=== PATIENT | female | born 1950 | race African-American/Black ===

== ENCOUNTER 2018-12-13 20:27 | Emergency (ER) | payer OTHER ==
--- OUTSIDE RECORDS SUMMARY | 2018-12-13 20:29 | XMS REPORT | Clinical Summary ---
:1950 Author Organization [facility] Address [address] [place] [address] Care Team Providers Name Role Phone Reid [...] Lu Transplant Self 1950 [phone] [address] (Home) [address] [place] [address] Advance Directives Patient has advance care planning documents on file. For more information, please contact:Justice Almendarez[address] [place] [address]
[2018-12-13] MEDS ORDERED: TETRACAINE HCL 0.5% 2ML OPTH ONE (20:45)
--- NOTE | 2018-12-13 20:46 | RAD REPORT ---
EXAM DESCRIPTION: CT - Ct Stroke Brain Wo Cont - 12/13/2018 8:38 pm CLINICAL HISTORY: Right eye pain, visual disturbance, stroke protocol CLINICAL HISTORY: CT September 2015 TECHNIQUE: Axial 5 millimeter thick images of the head were obtained without IV contrast. All CT scans are performed using dose optimization technique as appropriate and may include automated exposure control or mA/KV adjustment according to patient size. FINDINGS: No intracranial hemorrhage, mass, or cerebral edema. No cortical edema or sulcal effacemen t. Patient has underlying mild to moderate atrophy and chronic ischemic change not substantially diff erent from comparison. No extra-axial fluid collections. Craft matter-white matter differentiation is preserved. No globe or orbital content abnormality identifiable. Visualized portions of the mastoid air cells, paranasal sinuses, and orbits are unremarkable. Findings telephoned to the referring clinician 8:42 p.m. IMPRESSION: No CT evidence of acute intracranial process. Atrophy and chronic ischemic changes match prior imaging.
[2018-12-13 21:03] LABS: Absolute Lymphocytes (CBC) 0.8 K/uL (0.7-4.9); Absolute Monocytes 0.7 K/uL (0.1-1.3); Absolute Neutrophil 7.7 K/uL (1.8-8.0); Basophils % 0.5 % (0-1.3); Eosinophils % 2.5 % (0-4.4); Hematocrit 22.7 % (36.0-45.0); Lymphocytes % 8.5 % (15.3-44.8); MPV 8.8 fL (7.6-11.3); Monocytes % 7.5 % (3.3-12.3); RBC Red Blood Cell Count 2.43 M/uL (3.86-4.86)
--- NOTE | 2018-12-13 21:08 | RAD REPORT ---
EXAM DESCRIPTION: RAD - Chest Single View - 12/13/2018 8:45 pm CLINICAL HISTORY: Anemia, shortness of breath COMPARISON: November 2016 TECHNIQUE: AP portable chest image was obtained 2041 hour . FINDINGS: Lung volumes are low. No vascular engorgement. Heart size is normal range. Lung markings a re increased in each base not substantially different from the comparison study. Trachea is midline. No measurable pleural effusion and no pneumothorax. No acute bony abnormality seen. No acute aortic f indings suspected. IMPRESSION: Shallow inspiration film suspicious for mild failure or volume overload.
[2018-12-13 21:13] LABS: Protime INR 0.95
[2018-12-13] MEDS ORDERED: FLUORESCEIN SODIUM 1 MG/WRAP ONE (22:10)
[2018-12-13] MEDS ORDERED: FUROSEMIDE 20 MG/ 2ML VIAL ONE (23:04)
[2018-12-13] MEDS ORDERED: ACETAMINOPHEN 500 MG TAB ONE (23:05)
[2018-12-13] MEDS ORDERED: TETANUS & DIPHTHERIA TOX,ADULT 0.5 ML VIAL ONE (23:05)
[2018-12-13] MEDS ORDERED: DIPHENHYDRAMINE 25 MG TAB/CAP ONE (23:05)
[2018-12-13] MEDS ORDERED: LABETALOL 20 MG/4ML SYRINGE IV ONE (23:05)
[2018-12-13] MEDS ORDERED: NA CHLORIDE 0.9% 500 ML ONE (23:06)
[2018-12-13 23:32] LABS: Urine Blood NEGATIVE (NEG); Urine Glucose 1+ (NEG); Urine Protein 3+ (NEG); Urine Specific Gravity 1.025 (1.005-1.030); Urine pH 6.5 (5.0-7.0)
[2018-12-13] MEDS ORDERED: GENTAMICIN 0.3% OPTH DROP 5ML ONE (23:43)
--- NOTE | 2018-12-14 01:51 | ER ---
Nurse's Notes [facility] Name: Rhoda Lu Age: 68 yrs Sex: Female : 1950 Arrival Date: 12/13/2018 Time: 18:11 Bed 20 Private MD: Nick Magana Diagnosis: Anemia in chronic kidney disease;Injury of conjunctiva and corneal abrasion without foreign body, right eye;Hypertension secondary to other renal disorders Presentation: 12/13 18:35 Presenting complaint: Patient states: Dr. Magana sent me over for blood transfusion tw2 today, i brought the orders. Transition of care: patient was not received from another setting of care. Onset of symptoms was December 13, 2018. Risk Assessment: Do you want to hurt yourself or someone else? Patient reports no desire to harm self or others. Initial Sepsis Screen: Does the patient meet any 2 criteria? No. Patient's initial sepsis screen is negative. Does the patient have a suspected source of infection? No. Patient's initial sepsis screen is negative. Care prior to arrival: None. 18:35 Method Of Arrival: Wheelchair tw2 18:38 Acuity: JANAE 2 tw2 Triage Assessment: 18:38 General: Appears in no apparent distress. slender, Behavior is calm, cooperative, tw2 appropriate for age. Pain: Complains of pain in right eye. Historical: - Allergies: 18:39 TETRACYCLINES; tw2 18:39 Morphine; tw2 18:39 Codeine; tw2 - Home Meds: 18:39 amlodipine 10 mg tab 1 tab once daily [Active]; carvedilol 25 mg Oral tab 1 tab 2 times tw2 per day [Active]; furosemide 20 mg Oral tab 1 tab once daily [Active]; Humulin 70/30 Sub-Q twice a day [Active]; hydralazine 50 mg Oral tab 1 tab 2 times per day [Active]; - PMHx: 18:39 Diabetes - IDDM; Hypertension; tw2 - PSHx: 18:39 Appendectomy; tw2 - Immunization history:: Adult Immunizations. - Social history:: Smoking status: . - Ebola Screening: : Patient denies travel to an Ebola-affected area in the 21 days before illness onset. Screenin:15 Abuse screen: Denies threats or abuse. Denies injuries from another. Nutritional cc3 screening: No deficits noted. Tuberculosis screening: No symptoms or risk factors identified. Fall Risk Ambulatory Aid- None/Bed Rest/Nurse Assist (0 pts). Gait- Normal/Bed Rest/Wheelchair (0 pts) Mental Status- Oriented to own ability (0 pts). 21:00 Patient has been NPO before screening. The patient is alert, able to follow commands. cc3 The patient does not exhibit slurred or garbled speech The patient is not exhibiting difficulty speaking. The patient does not exhibit difficulty understanding words. The patient is able to swallow own secretions with no drooling or need for suction. Patient tolerated one teaspoon of water. No drooling, immediate coughing, gurgling, or clearing of the throat was noted. The patient tolerated 90mL of water. No drooling, immediate coughing, gurgling, or clearing of the throat was noted. The patient passed the bedside swallow screening. Oral medications may be given as ordered. Contact Physician for further diet orders. Provider notified of bedside swallow screening results: Richard Mathew NP. Assessment: 19:15 General: Appears in no apparent distress. comfortable, Behavior is calm, cooperative, cc3 appropriate for age. Pain: Denies pain. Neuro: Level of Consciousness is awake, alert, obeys commands, Oriented to person, place, time, situation, Appropriate for age. Cardiovascular: Patient's skin is warm and dry. Respiratory: Airway is patent Respiratory effort is even, unlabored, Respiratory pattern is regular, symmetrical. GI: Abdomen is round non-distended. : No signs and/or symptoms were reported regarding the genitourinary system. EENT: Reports blurred vision in right eye. Derm: No signs and/or symptoms reported regarding the dermatologic system. Musculoskeletal: Circulation, motion, and sensation intact. Range of motion: intact in all extremities. 19:35 Reassessment: pt states she wants her right eye checked for vision loss she woke up bb this morning at approx 0900 and noticed her vision had changed and she could not see as well. Richard Mathew NP notified new orders received. 20:18 Reassessment: Patient appears in no apparent distress at this time. Patient and/or cc3 family updated on plan of care and expected duration. Pain level reassessed. Patient is alert, oriented x 3, equal unlabored respirations, skin warm/dry/pink. 21:20 Reassessment: Patient appears in no apparent distress at this time. Patient and/or cc3 family updated on plan of care and expected duration. Pain level reassessed. Patient is alert, oriented x 3, equal unlabored respirations, skin warm/dry/pink. 22:15 Reassessment: Patient appears in no apparent distress at this time. Patient and/or cc3 family updated on plan of care and expected duration. Pain level reassessed. Patient is alert, oriented x 3, equal unlabored respirations, skin warm/dry/pink. DANIELLE Ramos consented the patient for 1 unit PRBC transfusion signed by the patient herself. 22:25 Reassessment: Patient appears in no apparent distress at this time. Patient and/or cc3 family updated on plan of care and expected duration. Pain level reassessed. Patient is alert, oriented x 3, equal unlabored respirations, skin warm/dry/pink. 22:45 Reassessment: Patient appears in no apparent distress at this time. Patient and/or cc3 family updated on plan of care and expected duration. Pain level reassessed. Patient is alert, oriented x 3, equal unlabored respirations, skin warm/dry/pink. Blood pressure of 199/71 mmHg, DANIELLE Ramos ordered to start the blood transfusion once blood pressure is lowered and stabilized. 23:20 Reassessment: Patient appears in no apparent distress at this time. Patient and/or cc3 family updated on plan of care and expected duration. Pain level reassessed. Patient is alert, oriented x 3, equal unlabored respirations, skin warm/dry/pink. Baseline vital signs of 168/69 mmHg, 98.3 degrees fahrenheit orally, heart rate of 70 bpm, respiratory rate of 16 and room air saturation of 99%, referred to DANIELLE Mathew and he ordered that blood transfusion can be started now. 1 unit of PRBC counterchecked and countersigned with JONI Rubio and started the blood transfusion as ordered. Monitored the patient closely for any adverse reaction at bedside. Patient denies pain at this time. 23:45 Reassessment: DANIELLE Mathew said the patient will not be for admission, after 1 unit of cc3 PRBC transfusion, to repeat CBC after 2 hours, patient and relatives informed. 12/14 00:20 Reassessment: Patient appears in no apparent distress at this time. Patient and/or cc3 family updated on plan of care and expected duration. Pain level reassessed. Patient is alert, oriented x 3, equal unlabored respirations, skin warm/dry/pink. continuously monitored the patient for any blood transfusion reactions. 01:20 Reassessment: Patient appears in no apparent distress at this time. Patient and/or cc3 family updated on plan of care and expected duration. Pain level reassessed. Patient is alert, oriented x 3, equal unlabored respirations, skin warm/dry/pink. continuously monitored the patient. Patient denies pain at this time. 01:50 Reassessment: Patient appears in no apparent distress at this time. Patient and/or cc3 family updated on plan of care and expected duration. Pain level reassessed. Patient is alert, oriented x 3, equal unlabored respirations, skin warm/dry/pink. 1 unit of packed RBC transfusion completed, patient tolerated. DANIELLE Ibarra informed and she ordered to repeat CBC after an hour before discharging the patient home. Patient denies pain at this time. 02:50 Reassessment: Patient appears in no apparent distress at this time. Patient and/or cc3 family updated on plan of care and expected duration. Pain level reassessed. Patient is alert, oriented x 3, equal unlabored respirations, skin warm/dry/pink. Repeat CBC taken and sent to lab as ordered, awaiting result. Patient denies pain at this time. Patient states feeling better. Patient states symptoms have improved. 03:16 Reassessment: Patient appears in no apparent distress at this time. Patient and/or cc3 family updated on plan of care and expected duration. Pain level reassessed. Patient is alert, oriented x 3, equal unlabored respirations, skin warm/dry/pink. 04:00 Reassessment: Patient appears in no apparent distress at this time. Patient and/or cc3 family updated on plan of care and expected duration. Pain level reassessed. Patient is alert, oriented x 3, equal unlabored respirations, skin warm/dry/pink. DANIELLE Ibarra discharged the patient home with prescription given. IV cannula removed and patient left ER vitally stable by wheelchair escorted by me and the patient's family. Patient denies pain at this time. Patient states feeling better. Patient states symptoms have improved. Vital Signs: 04/10 18:36 BP 210 / 103; Pulse 89; Resp 17; Temp 97.5(TE); Pulse Ox 97% on R/A; Weight 52.62 kg tw2 (R); Pain 8/10; 19:15 BP 195 / 87; Pulse 87; Resp 20 S; Temp 97.7(O); Pulse Ox 97% on R/A; cc3 20:00 BP 187 / 94; Pulse 94; Resp 17 S; Pulse Ox 98% on R/A; cc3 20:15 BP 178 / 75; Pulse 92; Resp 18 S; Pulse Ox 96% on R/A; cc3 21:49 BP 205 / 86; Pulse 93; Resp 16 S; Pulse Ox 96% on R/A; cc3 22:45 BP 199 / 71; Pulse 84; Resp 17 S; Pulse Ox 95% on R/A; cc3 23:10 BP 200 / 91; Pulse 93; Resp 17 S; Pulse Ox 96% on R/A; cc3 23:15 BP 210 / 71; Pulse 94; Resp 15 S; Pulse Ox 100% on R/A; cc3 23:20 BP 168 / 69; Pulse 70; Resp 16 S; Temp 98.3(O); Pulse Ox 99% on R/A; cc3 23:25 BP 169 / 57; Pulse 70; Resp 13 S; Temp 97.6(O); Pulse Ox 99% on R/A; cc3 23:30 BP 170 / 74; Pulse 70; Resp 16 S; Temp 97.6(O); Pulse Ox 100% on R/A; cc3 23:35 BP 163 / 67; Pulse 70; Resp 14 S; Temp 98(O); Pulse Ox 98% on R/A; cc3 23:50 BP 170 / 73; Pulse 69; Resp 15 S; Temp 97.9(O); Pulse Ox 97% on R/A; cc3 12/14 00:20 BP 165 / 69; Pulse 66; Resp 15 S; Temp 98(O); Pulse Ox 96% on R/A; cc3 00:50 BP 169 / 75; Pulse 67; Resp 14 S; Temp 98(O); Pulse Ox 95% on R/A; cc3 01:20 BP 167 / 75; Pulse 75; Resp 19 S; Temp 98(O); Pulse Ox 97% on R/A; cc3 01:50 BP 184 / 84; Pulse 71; Resp 14 S; Temp 97.9(O); Pulse Ox 95% on R/A; cc3 02:00 BP 187 / 88; Pulse 72; Resp 17 S; Pulse Ox 96% on R/A; cc3 02:30 BP 159 / 76; Pulse 81; Resp 18 S; Pulse Ox 100% on R/A; cc3 03:00 BP 164 / 72; Pulse 73; Resp 18 S; Pulse Ox 96% on R/A; cc3 03:45 BP 161 / 87; Pulse 76; Resp 17 S; Pulse Ox 98% on R/A; cc3 12/13 18:36 Right eye pain tw2 ED Course: 18:11 Patient arrived in ED. as 18:12 Nick Magana DO is Private Physician. as 18:36 Triage completed. tw2 18:39 Arm band placed on. tw2 19:02 Richard Mathew NP is PHCP. pm1 19:02 Marek Reagan MD is Attending Physician. pm1 19:12 Kim Kennedy is Primary Nurse. cc3 19:15 Patient has correct armband on for positive identification. Placed in gown. Bed in low cc3 position. Call light in reach. Side rails up X2. cashier and waiter/waitress on. Pulse ox on. NIBP on. 20:15 Inserted saline lock: 20 gauge in right antecubital area, using aseptic technique. cc3 Blood collected. 20:38 CT Stroke Brain w/o Contrast In Process Unspecified. EDMS 20:42 X-ray completed. Patient tolerated procedure well. Patient moved back from radiology. ls3 20:43 Stroke CXR 1 View In Process Unspecified. EDMS 21:35 Notified Nurse Practitioner and/or Physician Senior [employer] Developer of a critical lab result(s), jb4 Creatinine 6.75 Notified primary nurse of Critical lab value. 12/14 01:50 Nick Magana DO is Referral Physician. snw 01:50 Amor Holliday MD is Referral Physician. snw 04:00 No provider procedures requiring assistance completed. IV discontinued, intact, cc3 bleeding controlled, No redness/swelling at site. Pressure dressing applied. Administered Medications: 12/13 21:05 Drug: Tetracaine Drops 0.5 % 1 drops {Note: admisnistered by DANIELLE Mathew.} Route: cc3 Ophthalmic; Site: right eye; 21:30 Follow up: Response: No adverse reaction cc3 21:50 Drug: Fluorescein Strip 1 strip {Note: administered by DANIELLE Mathew.} Route: Ophthalmic; cc3 Site: right eye; 22:05 Follow up: Response: No adverse reaction cc3 23:00 Drug: Lasix 20 mg Route: IVP; Site: right antecubital; cc3 23:15 Follow up: Response: No adverse reaction cc3 23:05 Drug: Tylenol 500 mg Route: PO; cc3 23:20 Follow up: Response: No adverse reaction cc3 23:05 Drug: Benadryl 25 mg Route: PO; cc3 23:20 Follow up: Response: No adverse reaction cc3 23:10 Drug: Tetanus-Diphtheria Toxoid Adult 0.5 ml {Manager Solar: [employer]. Exp: cc3 09/23/2020. Lot #: [id number]. } Route: IM; Site: right deltoid; 23:30 Follow up: Response: No adverse reaction cc3 23:15 Drug: Labetalol 20 mg Route: IVP; Infused Over: 2 mins; Site: right antecubital; cc3 23:20 Follow up: Response: No adverse reaction; Blood pressure is lowered cc3 23:30 Drug: Gentamicin Drops 0.3 % 2 drops Route: Ophthalmic; Site: right eye; cc3 23:40 Follow up: Response: No adverse reaction cc3 23:32 Not Given (Other Intervention Used): TobraDEX Drops (0.3 %-0.1 %) 2 drops Ophthalmic rr5 once Point of Care Testing: Blood Glucose: 20:19 Blood Glucose: 131 mg/dL; cc3 Ranges: Outcome: 12/14 01:50 Discharge ordered by . monster 04:00 Discharged to home via wheelchair, with family. cc3 04:00 Condition: stable 04:00 Discharge instructions given to patient, family, Instructed on discharge instructions, follow up and referral plans. medication usage, Demonstrated understanding of instructions, follow-up care, medications, Prescriptions given X 1. 04:02 Patient left the ED. cc3 Signatures: Dispatcher [employer] EDMS Stacey May FNP-C MEDICAL SCREENER-[employer] Naomie Acosta as Rhoda Dong, RN RN bb Richard Mathew NP SATELLITE INSTALLATION TECHNICIAN pm1 Barbara Nieto RN RN tw2 Hany Montelongo RN RN jb4 Kim Kennedy cc3 Marcus Nixon 3 Ramiro Welsh RN rr5 Corrections: (The following items were deleted from the chart) 12/13 18:38 18:35 Acuity: JANAE 3 tw2 tw2 21:18 20:00 BP 178 / 75; Pulse 92bpm; Resp 18bpm; Spontaneous; Pulse Ox 96% RA; cc3 cc3 12/14 00:07 12/13 22:15 Reassessment: Patient appears in no apparent distress at this time. Patient cc3 and/or family updated on plan of care and expected duration. Pain level reassessed. Patient is alert, oriented x 3, equal unlabored respirations, skin warm/dry/pink. Patient consented for blood transfusion signed by the patient herself. 3 12/14 01:42 01:20 Reassessment: Patient appears in no apparent distress at this time. Patient cc3 and/or family updated on plan of care and expected duration. Pain level reassessed. Patient is alert, oriented x 3, equal unlabored respirations, skin warm/dry/pink. continuously monitored the patient. 3 01:43 12/13 23:20 Reassessment: Patient appears in no apparent distress at this time. Patient cc3 and/or family updated on plan of care and expected duration. Pain level reassessed. Patient is alert, oriented x 3, equal unlabored respirations, skin warm/dry/pink. Baseline vital signs of 168/69 mmHg, 98.3 degrees fahrenheit orally, heart rate of 70 bpm, respiratory rate of 16 and room air saturation of 99%, referred to DANIELLE Mathew and he ordered that blood transfusion can be started now. 1 unit of PRBC counterchecked and countersigned with JONI Rubio and started the blood transfusion as ordered. Monitored the patient closely for any adverse reaction at bedside. cc3 12/14 03:15 01:50 Reassessment: Patient appears in no apparent distress at this time. Patient cc3 and/or family updated on plan of care and expected duration. Pain level reassessed. Patient is alert, oriented x 3, equal unlabored respirations, skin warm/dry/pink. 1 unit of packed RBC transfusion completed, patient tolerated. SATELLITE INSTALLATION TECHNICIAN Stacey informed and she ordered to repeat CBC after an hour before discharging the patient home. cc3 03:15 02:50 Reassessment: Patient appears in no apparent distress at this time. Patient cc3 and/or family updated on plan of care and expected duration. Pain level reassessed. Patient is alert, oriented x 3, equal unlabored respirations, skin warm/dry/pink. Repeat CBC taken and sent to lab as ordered, awaiting result. cc3
--- NOTE | 2018-12-14 01:52 | EDPHYS ---
Physician Documentation [facility] Name: Rhoda Lu Age: 68 yrs Sex: Female : 1950 Arrival Date: 12/13/2018 Time: 18:11 Bed 20 Private MD: Nick Magana ED Physician Maerk Reagan HPI: 12/13 19:55 This 68 yrs old Black Female presents to ER via Wheelchair with complaints of Blood pm1 Transfusion. 19:55 Associated signs and symptoms: Pertinent negatives: abdominal pain, chest pain, fever, pm1 headache, shortness of breath. Modifying factors: The patient symptoms are alleviated by nothing, the patient symptoms are aggravated by nothing. The patient has been recently seen by a physician: Dr. Magana. Patient reports that she gets iron injections every Tuesday. Patient is presenting to the ER with orders for a transfusion of 2 units of PRBCs by Dr. Magana. Patient without any shortness of breath, chest pain, or headache. 19:55 Patient reports that her right eye has been blurry since she woke up in the morning. No pm1 loss of vision. Complete right eye visual field is blurry. It feels scratchy like there is something in it. Right eye tearing since this AM. 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 Historical: - Allergies: 18:39 TETRACYCLINES; tw2 18:39 Morphine; tw2 18:39 Codeine; tw2 - Home Meds: 18:39 amlodipine 10 mg tab 1 tab once daily [Active]; carvedilol 25 mg Oral tab 1 tab 2 times tw2 per day [Active]; furosemide 20 mg Oral tab 1 tab once daily [Active]; Humulin 70/30 Sub-Q twice a day [Active]; hydralazine 50 mg Oral tab 1 tab 2 times per day [Active]; - PMHx: 18:39 Diabetes - IDDM; Hypertension; tw2 - PSHx: 18:39 Appendectomy; tw2 - Immunization history:: Adult Immunizations. - Social history:: Smoking status: . - Ebola Screening: : Patient denies travel to an Ebola-affected area in the 21 days before illness onset. ROS: 19:55 Constitutional: Negative for fever, chills, and weight loss. pm1 19:55 ENT: Negative for injury, pain, and discharge, Neck: Negative for injury, pain, and swelling, Cardiovascular: Negative for chest pain, palpitations, and edema, Respiratory: Negative for shortness of breath, cough, wheezing, and pleuritic chest pain, Abdomen/GI: Negative for abdominal pain, nausea, vomiting, diarrhea, and constipation, Back: Negative for injury and pain, : Negative for injury, bleeding, discharge, and swelling, MS/Extremity: Negative for injury and deformity, Skin: Negative for injury, rash, and discoloration, Neuro: Negative for headache, weakness, numbness, tingling, and seizure. 19:55 Eyes: Positive for blurry vision, itching, tearing, of the right eye, Negative for discharge. Exam: 19:55 Constitutional: This is a well developed, well nourished patient who is awake, alert, pm1 and in no acute distress. Head/Face: Normocephalic, atraumatic. ENT: Nares patent. No nasal discharge, no septal abnormalities noted. Tympanic membranes are normal and external auditory canals are clear. Oropharynx with no redness, swelling, or masses, exudates, or evidence of obstruction, uvula midline. Mucous membranes moist. 19:55 Neck: Trachea midline, no thyromegaly or masses palpated, and no cervical lymphadenopathy. Supple, full range of motion without nuchal rigidity, or vertebral point tenderness. No Meningismus. Chest/axilla: Normal chest wall appearance and motion. Nontender with no deformity. No lesions are appreciated. Cardiovascular: Regular rate and rhythm with a normal S1 and S2. No gallops, murmurs, or rubs. Normal PMI, no JVD. No pulse deficits. Respiratory: Lungs have equal breath sounds bilaterally, clear to auscultation and percussion. No rales, rhonchi or wheezes noted. No increased work of breathing, no retractions or nasal flaring. Abdomen/GI: Soft, non-tender, with normal bowel sounds. No distension or tympany. No guarding or rebound. No evidence of tenderness throughout. Back: No spinal tenderness. No costovertebral tenderness. Full range of motion. Skin: Warm, dry with normal turgor. Normal color with no rashes, no lesions, and no evidence of cellulitis. MS/ Extremity: Pulses equal, no cyanosis. Neurovascular intact. Full, normal range of motion. 19:55 Eyes: Periorbital structures: appear normal, Pupils: irregularly shaped, bilaterally, left eye fixed and dilated, Extraocular movements: intact throughout, Conjunctiva: injected, in the right eye, tearing noted, in right eye. 19:55 Neuro: Orientation: is normal, Mentation: is normal, Memory: is normal, Motor: is normal, moves all fours, Sensation: is normal, no obvious gross deficits. 21:10 Eyes: Intraocular pressure: is normal, right eye = 21mmHg. pm1 22:00 Eyes: Corneas: abrasion, approximately 1 mm(s), center of cornea of right eye, foreign pm1 body, is not appreciated, a fluorescein strip employed to appreciate the findings. Vital Signs: 18:36 BP 210 / 103; Pulse 89; Resp 17; Temp 97.5(TE); Pulse Ox 97% on R/A; Weight 52.62 kg tw2 (R); Pain 8/10; 19:15 BP 195 / 87; Pulse 87; Resp 20 S; Temp 97.7(O); Pulse Ox 97% on R/A; cc3 20:00 BP 187 / 94; Pulse 94; Resp 17 S; Pulse Ox 98% on R/A; cc3 20:15 BP 178 / 75; Pulse 92; Resp 18 S; Pulse Ox 96% on R/A; cc3 21:49 BP 205 / 86; Pulse 93; Resp 16 S; Pulse Ox 96% on R/A; cc3 22:45 BP 199 / 71; Pulse 84; Resp 17 S; Pulse Ox 95% on R/A; cc3 23:10 BP 200 / 91; Pulse 93; Resp 17 S; Pulse Ox 96% on R/A; cc3 23:15 BP 210 / 71; Pulse 94; Resp 15 S; Pulse Ox 100% on R/A; cc3 23:20 BP 168 / 69; Pulse 70; Resp 16 S; Temp 98.3(O); Pulse Ox 99% on R/A; cc3 23:25 BP 169 / 57; Pulse 70; Resp 13 S; Temp 97.6(O); Pulse Ox 99% on R/A; cc3 23:30 BP 170 / 74; Pulse 70; Resp 16 S; Temp 97.6(O); Pulse Ox 100% on R/A; cc3 23:35 BP 163 / 67; Pulse 70; Resp 14 S; Temp 98(O); Pulse Ox 98% on R/A; cc3 23:50 BP 170 / 73; Pulse 69; Resp 15 S; Temp 97.9(O); Pulse Ox 97% on R/A; cc3 12/14 00:20 BP 165 / 69; Pulse 66; Resp 15 S; Temp 98(O); Pulse Ox 96% on R/A; cc3 00:50 BP 169 / 75; Pulse 67; Resp 14 S; Temp 98(O); Pulse Ox 95% on R/A; cc3 01:20 BP 167 / 75; Pulse 75; Resp 19 S; Temp 98(O); Pulse Ox 97% on R/A; cc3 01:50 BP 184 / 84; Pulse 71; Resp 14 S; Temp 97.9(O); Pulse Ox 95% on R/A; cc3 02:00 BP 187 / 88; Pulse 72; Resp 17 S; Pulse Ox 96% on R/A; cc3 02:30 BP 159 / 76; Pulse 81; Resp 18 S; Pulse Ox 100% on R/A; cc3 03:00 BP 164 / 72; Pulse 73; Resp 18 S; Pulse Ox 96% on R/A; cc3 03:45 BP 161 / 87; Pulse 76; Resp 17 S; Pulse Ox 98% on R/A; cc3 12/13 18:36 Right eye pain tw2 MDM: 19:03 Patient medically screened. pm1 22:04 Data reviewed: vital signs. Data interpreted: Pulse oximetry: on room air is 96 %. pm1 Interpretation: normal. 22:32 Physician consultation: Rodney Agosto MD was called at 22:33, was contacted at pm1 22:33, regarding consult, patient's condition, 1 unit PRBC with Lasix 20 mg IV and discharge the patient home after the transfusion of blood.. 22:44 Counseling: I had a detailed discussion with the patient and/or guardian regarding: the pm1 historical points, exam findings, and any diagnostic results supporting the discharge/admit diagnosis, lab results, radiology results. 12/13 19:07 Order name: CBC with Diff; Complete Time: 21:11 pm1 12/13 19:07 Order name: Type And Screen pm1 12/13 19:55 Order name: Basic Metabolic Panel; Complete Time: 21:48 pm12/13 19:55 Order name: Protime (+inr); Complete Time: 21:29 pm12/13 19:55 Order name: Ptt, Activated; Complete Time: 21:29 pm1 12/13 19:55 Order name: CT Stroke Brain w/o Contrast; Complete Time: 21:01 pm12/13 21:47 Order name: Packed RBC Leukored -1 EDMS 12/13 23:26 Order name: Urine Dipstick--Ancillary (enter results); Complete Time: 23:41 mw2 12/14 02:45 Order name: CBC with Diff: post PRBC transfusion cc3 12/13 19:55 Order name: Stroke CXR 1 View; Complete Time: 21:11 pm1 12/13 19:55 Order name: EKG; Complete Time: 20:29 pm12/13 19:55 Order name: Accucheck; Complete Time: 20:27 pm12/13 19:55 Order name: Cardiac monitoring; Complete Time: 19:58 pm12/13 19:55 Order name: EKG - Nurse/Tech; Complete Time: 20:27 pm12/13 19:55 Order name: IV Saline Lock; Complete Time: 19:58 pm12/13 19:55 Order name: Labs collected and sent; Complete Time: 20:43 pm12/13 19:55 Order name: NPO; Complete Time: 19:59 pm12/13 19:55 Order name: O2 Per Protocol; Complete Time: 20:43 pm12/13 19:55 Order name: O2 Sat Monitoring; Complete Time: 20:27 pm12/13 19:55 Order name: Stroke Swallow Screen; Complete Time: 21:16 pm12/14 00:13 Order name: Transfuse; Complete Time: 00:14 cc3 Administered Medications: 21:05 Drug: Tetracaine Drops 0.5 % 1 drops {Note: admisnistered by DANIELLE Mathew.} Route: cc3 Ophthalmic; Site: right eye; 21:30 Follow up: Response: No adverse reaction cc3 21:50 Drug: Fluorescein Strip 1 strip {Note: administered by MATTRESS WEAVER Priyanka.} Route: Ophthalmic; cc3 Site: right eye; 22:05 Follow up: Response: No adverse reaction cc3 23:00 Drug: Lasix 20 mg Route: IVP; Site: right antecubital; cc3 23:15 Follow up: Response: No adverse reaction cc3 23:05 Drug: Tylenol 500 mg Route: PO; cc3 23:20 Follow up: Response: No adverse reaction cc3 23:05 Drug: Benadryl 25 mg Route: PO; cc3 23:20 Follow up: Response: No adverse reaction cc3 23:10 Drug: Tetanus-Diphtheria Toxoid Adult 0.5 ml {Vinyl Installer: [employer]. Exp: cc3 09/23/2020. Lot #: [id number]. } Route: IM; Site: right deltoid; 23:30 Follow up: Response: No adverse reaction cc3 23:15 Drug: Labetalol 20 mg Route: IVP; Infused Over: 2 mins; Site: right antecubital; cc3 23:20 Follow up: Response: No adverse reaction; Blood pressure is lowered cc3 23:30 Drug: Gentamicin Drops 0.3 % 2 drops Route: Ophthalmic; Site: right eye; cc3 23:40 Follow up: Response: No adverse reaction cc3 23:32 Not Given (Other Intervention Used): TobraDEX Drops (0.3 %-0.1 %) 2 drops Ophthalmic rr5 once Point of Care Testing: Blood Glucose: 20:19 Blood Glucose: 131 mg/dL; cc3 Ranges: Critical Glucose Levels:Adult <50 mg/dl or >400 mg/dl <40 mg/dl or >180 mg/dl Disposition: 12/14 06:40 Co-signature as Attending Physician, Marek Reagan MD I agree with the assessment and kdr plan of care. Disposition: 12/14/18 01:50 Discharged to Home. Impression: Anemia in chronic kidney disease, Injury of conjunctiva and corneal abrasion without foreign body, right eye, Hypertension secondary to other renal disorders. - Condition is Stable. - Discharge Instructions: Anemia, Nonspecific, Blood Transfusion, Adult, Corneal Abrasion, Hypertension, Eclc-xl-[id number], How to Take Your Blood Pressure, Rhca-ae-Vdcm. - Prescriptions for Gentamicin 0.3 % Ophthalmic Drops - instill 1 drop by OPHTHALMIC route every 4 hours for 7 days; 1 bottle. - Medication Reconciliation Form, Thank You Letter, Antibiotic Education, Prescription Opioid Use form. - Follow up: Nick Magana; When: 2 - 3 days; Reason: Recheck today's complaints, Continuance of care, Re-evaluation by your physician. Follow up: Amor Schmidty; When: 2 - 3 days; Reason: Recheck today's complaints, Continuance of care, Re-evaluation by your physician. - Problem is new. - Symptoms have improved. Signatures: Dispatcher [employer] EDMS Marek Reagan MD MD [facility] Stacey May, RESTAURANT SERVER-C RESTAURANT SERVER-[employer] Richard Mathew, MATTRESS WEAVER MATTRESS WEAVER pm1 Barbara Nieto RN RN tw2 Kim Kennedy cc3 Ramiro Welsh, RN RN rr5 Corrections: (The following items were deleted from the chart) 12/13 20:32 20:30 Head Brain Wo Cont ordered. EDSC EDSC 21:32 20:30 BASIC METABOLIC PANEL+C.LAB.BRZ ordered. EDSC EDSC 21:47 20:30 TYPE AND SCREEN+BB.LAB.BRZ ordered. EDSC EDSC 23:31 20:30 PROTIME (+INR)+COAG.LAB.BRZ ordered. EDSC EDSC 23:31 20:30 PTT, ACTIVATED+COAG.LAB.BRZ ordered. EDSC EDSC 23:32 20:30 CBC+H.LAB.BRZ ordered. [facility] 12/14 04:02 01:50 12/14/2018 01:50 Discharged to Home. Impression: Anemia in chronic kidney cc3 disease; Injury of conjunctiva and corneal abrasion without foreign body, right eye; Hypertension secondary to other renal disorders. Condition is Stable. Discharge Instructions: Anemia, Nonspecific, Blood Transfusion, Adult, Corneal Abrasion, Hypertension, Rocv-vd-Igub, How to Take Your Blood Pressure, Wrue-lk-Tbrr. Prescriptions for Gentamicin 0.3 % Ophthalmic Drops - instill 1 drop by OPHTHALMIC route every 4 hours for 7 days; 1 bottle. and Forms are Medication Reconciliation Form, Thank You Letter, Antibiotic Education, Prescription Opioid Use. Follow up: Nick Magana; When: 2 - 3 days; Reason: Recheck today's complaints, Continuance of care, Re-evaluation by your physician. Follow up: Amor Holliday; When: 2 - 3 days; Reason: Recheck today's complaints, Continuance of care, Re-evaluation by your physician. Problem is new. Symptoms have improved. snw
[2018-12-14 03:04] LABS: Absolute Lymphocytes (CBC) 0.5 K/uL (0.7-4.9); Absolute Monocytes 0.5 K/uL (0.1-1.3); Absolute Neutrophil 6.8 K/uL (1.8-8.0); Basophils % 0.4 % (0-1.3); Eosinophils % 1.8 % (0-4.4); Hematocrit 25.1 % (36.0-45.0); Lymphocytes % 6.7 % (15.3-44.8); MPV 8.7 fL (7.6-11.3); Monocytes % 6.7 % (3.3-12.3); RBC Red Blood Cell Count 2.77 M/uL (3.86-4.86)
[2018-12-14 04:26] VITALS: TEMP 97.9
[2018-12-14 04:30] VITALS: BP 164/72; O2SAT 96
--- NOTE | 2018-12-14 08:18 | EKG ---
Test Date: 2018-12-13 Test Time: 20:24:07 Calender Wind Up Helper: MATHEW MEASUREMENT RESULTS: Intervals: Rate: 94 WV: 124 QRSD: 78 QT: 376 QTc: 470 [place]: P: 76 WV: 124 QRS: -9 T: 61 INTERPRETIVE STATEMENTS: Normal sinus rhythm Possible Left atrial enlargement Borderline ECG Compared to ECG 11/07/2016 02:41:58 Sinus bradycardia no longer present Electronically Signed On 12-14-18 07:51:15 CDT by Sarkis Crouch
== END 2018-12-14 04:02 | disposition home or self-care (01) ==
LOC: ER 20:27
DX: N18.9 Chronic kidney disease, unspecified (principal); D63.1 Anemia in chronic kidney disease; S05.01XA Injury of conjunctiva and corneal abrasion without foreign body, right eye, initial encounter; E11.22 Type 2 diabetes mellitus with diabetic chronic kidney disease; I12.9 Hypertensive chronic kidney disease with stage 1 through stage 4 chronic kidney disease, or unspecified chronic kidney disease; Z79.4 Long term (current) use of insulin
CPT/HCPCS: 93005; 85025 ×2; 80048; 36415; 86900; 86850; 85610; 86901; 85730; 81003; 70450; 71045; 90714; 96375; 96374; 99285; J1940; P9016

== ENCOUNTER → 2018-12-13 | Day surgery (SDC) | payer OTHER ==
--- OUTSIDE RECORDS SUMMARY | 2018-12-13 18:10 | XMS REPORT | Clinical Summary ---
:1950 Author Organization [facility] Address [address] [place] [address] Care Team Providers Name Role Phone Reid Vera MD Primary Care Provider Allergies Active Allergy Reactions Severity Noted Date Comments Tetracycline Hives, Shortness Of Breath High 08/30/2017 Medications Medication Sig Dispensed Refills Start Date End Date Status furosemide (LASIX) 80 Take 80 mg by 0 Active mg tablet mouth daily. SPIRONOLACTONE ORAL Take 75 mg by 0 Active mouth daily. hydrALAZINE Take 25 mg by 0 Active (APRESOLINE) 25 MG mouth 3 (three) tablet times a day. travoprost Administer 1 drop 0 Active (TRAVATAN-Z) 0.004 % to both eyes nightly. brimonidine-timolol Administer 1 drop 0 Active (COMBIGAN) 0.2-0.5 % to both eyes every ophthalmic solution 12 (twelve) hours. Active Problems Problem Noted Date Anemia 08/30/2017 Social History Tobacco Use Types Packs/Day Years Used Date Former Smoker Cigarettes 0.25 40 Smokeless Tobacco: Never Used Sex Assigned at Date Recorded Not on file Job Start Date Occupation Industry Not on file Not on file Not on file Travel History Travel Start Travel End No recent travel history available. Last Filed Vital Signs Not on file Plan of Treatment Not on file Results Not on fileafter 12/12/2017 Insurance Payer Benefit Plan / Group Subscriber ID Type Phone Address [employer]V xxxxxxxx HMO Rhoda Lu Transplant Self 1950 [phone] (Home) [address] [place] [address] Advance Directives Patient has advance care planning documents on file. For more information, please contact:Justice Almendarez[address] [place] [address]
== END ==
LOC: DS 18:05
PROVIDERS: ATTEND Internal Medicine Nephrology
DX: I13.2 Hypertensive heart and chronic kidney disease with heart failure and with stage 5 chronic kidney disease, or end stage renal disease (principal); E11.22 Type 2 diabetes mellitus with diabetic chronic kidney disease; N18.5 Chronic kidney disease, stage 5; I50.32 Chronic diastolic (congestive) heart failure; D63.1 Anemia in chronic kidney disease; N25.0 Renal osteodystrophy; E21.1 Secondary hyperparathyroidism, not elsewhere classified; E55.9 Vitamin D deficiency, unspecified; E87.8 Other disorders of electrolyte and fluid balance, not elsewhere classified; I77.9 Disorder of arteries and arterioles, unspecified; K59.01 Slow transit constipation; R60.0 Localized edema; R80.8 Other proteinuria
CPT/HCPCS: 82962; 86850; 86900; 86901

== ENCOUNTER 2019-01-03 15:56 | Inpatient (IN) | payer OTHER ==
--- OUTSIDE RECORDS SUMMARY | 2019-01-03 15:58 | XMS REPORT | Clinical Summary ---
:1950 Author Organization [facility] Address [address] [place] [address] Care Team Providers Name Role Phone Reid [...] Not on file Results Not on fileafter 01/02/2018 Insurance Payer Benefit Plan / Group Subscriber ID Type Phone Address [employer] O MCR ADV xxxxxxxx HMO Rhoda Lu Transplant Self 1950 [phone] [address] ([address]) [address] [place] [address] Advance Directives Patient has advance care planning documents on file. For more information, please contact:Justice Almendarez[address] [place] [address]
[2019-01-03] MEDS ORDERED: MORPHINE 4 MG/ML SYR ONE (16:20)
[2019-01-03] MEDS ORDERED: ONDANSETRON 4 MG/2 ML VIAL ONE (16:20)
[2019-01-03 16:21] LABS: Absolute Lymphocytes (CBC) 0.3 K/uL (0.7-4.9); Absolute Monocytes 0.8 K/uL (0.1-1.3); Absolute Neutrophil 11.4 K/uL (1.8-8.0); Basophils % 0.2 % (0-1.3); Eosinophils % 2.5 % (0-4.4); Lymphocytes % 2.7 % (15.3-44.8); MPV 8.7 fL (7.6-11.3); Monocytes % 6.3 % (3.3-12.3); RBC Red Blood Cell Count 2.96 M/uL (3.86-4.86)
[2019-01-03 16:31] LABS: Protime INR 1.02
--- NOTE | 2019-01-03 16:38 | RAD REPORT ---
EXAM DESCRIPTION: [place] Single View01/03/2019 4:27 pm CLINICAL HISTORY: Chest pain COMPARISON: December 13, 2018 FINDINGS: [id number] bilateral pulmonary opacities. The heart is normal size. Small pleural effusions are present IMPRESSION: [id number] bilateral pulmonary opacities probably represent pulmonary edema
[2019-01-03] MEDS ORDERED: NITROGLYCERIN 0.4 MG/TAB SL ONE (17:11)
[2019-01-03 18:05] LABS: Albumin 3.3 g/dL (3.4-5.0); Bilirubin Direct 0.1 mg/dL (0-0.2); Bilirubin Total 0.4 mg/dL (0.2-1.0); Potassium 3.9 mmol/L (3.5-5.1); Protein, Total 7.1 g/dL (6.4-8.2)
[2019-01-03 18:06] LABS: Magnesium 2.7 mg/dL (1.8-2.4); Troponin (Emerg Dept Use Only) 0.07 ng/mL (0.0-0.045)
--- NOTE | 2019-01-03 18:06 | ER ---
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 Reports aj pain radiates to left arm. Transition of care: patient was not received from another setting of care. Onset of symptoms was January 03, 2019. Risk Assessment: Do you want to hurt yourself or someone else? Patient reports no desire to harm self or others. Initial Sepsis Screen: Does the patient meet any 2 criteria? No. Patient's initial sepsis screen is negative. Does the patient have a suspected source of infection? No. Patient's initial sepsis screen is negative. Care prior to arrival: Medication(s) given: ASA, 325 mg, x 1, Nitroglycerin, 0.4 mg SL x 2, IV initiated. 20 GA, in the left antecubital area. 15:57 Method Of Arrival: EMS: [facility] 15:57 Acuity: JANAE 2 aj Triage Assessment: 16:00 General: Appears in no apparent distress. comfortable, Behavior is calm, cooperative, aj appropriate for age. Pain: Complains of pain in mid-sternal area. Neuro: Level of Consciousness is awake, alert, obeys commands, Oriented to person, place, time, situation, Appropriate for age. Cardiovascular: Reports chest pain, Capillary refill < 3 seconds fingers Patient's skin is warm and dry. Edema is 2+ to left foot, left toes, right foot and right toes. Respiratory: Airway is patent Respiratory effort is even, unlabored, Respiratory pattern is regular, symmetrical. Derm: Skin is intact, is healthy with good turgor, Skin is pink, warm \T\ dry. normal. Historical: - Allergies: 16:00 Codeine; aj 16:00 Morphine; aj 16:00 TETRACYCLINES; aj 16:00 Demerol; aj - Home Meds: 16:00 amlodipine 10 mg tab 1 tab once daily [Active]; carvedilol 25 mg Oral tab 1 tab 2 times aj per day [Active]; furosemide 20 mg Oral tab 1 tab once daily [Active]; Humulin 70/30 Sub-Q twice a day [Active]; hydralazine 50 mg Oral tab 1 tab 2 times per day [Active]; - PMHx: 16:00 Diabetes - IDDM; Hypertension; Renal Disease; DVT; aj - PSHx: 16:00 Appendectomy; aj - Immunization history:: Adult Immunizations up to date. - Social history:: Smoking status: Patient/guardian denies using tobacco, Patient/guardian denies using alcohol, street drugs, The patient lives with family. - Ebola Screening: : Patient negative for fever greater than or equal to 101.5 degrees Fahrenheit, and additional compatible Ebola Virus Disease symptoms Patient denies exposure to infectious person Patient denies travel to an Ebola-affected area in the 21 days before illness onset No symptoms or risks identified at this time. - Family history:: not pertinent. Screenin:17 Abuse screen: Denies threats or abuse. Denies injuries from another. Nutritional aj screening: No deficits noted. Tuberculosis screening: No symptoms or risk factors identified. Fall Risk None identified. Assessment: 16:17 Reassessment: No changes from previously documented assessment. aj 18:04 Reassessment: Patient appears in no apparent distress at this time. No changes from aj previously documented assessment. Patient and/or family updated on plan of care and expected duration. Pain level reassessed. Patient is alert, oriented x 3, equal unlabored respirations, skin warm/dry/pink. Patient is resting in bed with eyes closed. Denies pain at this time. 19:45 Reassessment: Patient appears in no apparent distress at this time. No changes from aj previously documented assessment. Patient and/or family updated on plan of care and expected duration. Pain level reassessed. Patient is alert, oriented x 3, equal unlabored respirations, skin warm/dry/pink. Vital Signs: 16:00 BP 160 / 116; Pulse 89; Resp 21; Temp 98.5; Pulse Ox 91% on R/A; Weight 65.77 kg; aj Height 5 ft. 6 in. (167.64 cm); 17:03 BP 214 / 110; Pulse 96; Resp 14; Pulse Ox 95% on R/A; aj 17:51 BP 202 / 96; Pulse 92; Resp 18; Pulse Ox 95% on R/A; aj 18:04 BP 228 / 103; Pulse 79; Resp 16; Pulse Ox 96% on R/A; aj 18:19 BP 164 / 86; Pulse 66; Resp 15; Pulse Ox 97% on R/A; aj 19:40 BP 172 / 94; Pulse 75; Resp 15; Pulse Ox 98% on R/A; aj 16:00 Body Mass Index 23.40 (65.77 kg, 167.64 cm) aj ED Course: 15:57 Patient arrived in ED. aj 15:59 Triage completed. aj 16:00 Kyree Pulido PA is PHCP. jr8 16:00 Eamon Burden MD is Attending Physician. jr8 16:00 Arm band placed on right wrist. Patient placed in an exam room, on a stretcher, on aj desk monitor, on pulse oximetry. EKG completed in triage. Results shown to MD. 16:17 Patient has correct armband on for positive identification. color television console monitor on. Pulse aj ox on. NIBP on. 16:17 Maintain EMS IV. Site clean \T\ dry. Gauge \T\ site: 20 to left AC. Patient maintains SpO2 aj saturation greater than 95% on room air. 16:18 America Cohen, RN is Primary Nurse. aj 16:27 XRAY Chest (1 view) In Process Unspecified. EDMS 16:31 EKG done, by clin tech. reviewed by Eamon Burden MD. 3 16:46 Radiology exam delayed due to lab results not completed at this time. (BUN/Creatinine). vm2 17:37 Radiology exam delayed due to lab results not completed at this time. (BUN/Creatinine). vm2 17:56 Radiology exam delayed due to lab results not completed at this time. (BUN/Creatinine). vm2 18:04 Octavio Cloud MD is Hospitalizing Provider. ma2 19:[address] via stretcher. nj 19:07 CT completed. Patient tolerated procedure well. Patient moved back from ND. nj 19:45 No provider procedures requiring assistance completed. Patient did not have IV access aj during this emergency room visit. Administered Medications: 16:18 CANCELLED (Inappropriate at this time): morphine 4 mg IVP once aj 16:18 CANCELLED (Inappropriate at this time): Zofran 4 mg IVP once; over 2 minutes aj 17:00 Drug: Nitroglycerin 0.4 mg Route: Sublingual; aj 18:04 Follow up: Response: No adverse reaction; No change in condition aj 18:00 Drug: Labetalol 10 mg Route: IVP; Site: left antecubital; aj 18:19 Follow up: Response: Blood pressure is lowered aj 18:03 Drug: Lasix 20 mg Route: IVP; Site: left antecubital; aj 19:46 Follow up: Response: No adverse reaction aj Outcome: 18:05 Decision to Hospitalize by Provider. ma2 19:45 Admitted to Med/surg accompanied by tech, family with patient, via stretcher, room 231, aj with chart, Report called to Nathalie QUINONES 19:45 Condition: stable 19:45 Instructed on the need for admit. 20:13 Patient left the ED. aj Signatures: Dispatcher [employer] America Galvan RN RN Kyree Mills PA PA jr8 Sarmad Odom Victoria vm2 Eamon Burden MD MD ma2 Lou Ivey 3
--- NOTE | 2019-01-03 18:06 | EDPHYS ---
Physician Documentation [facility] Name: Rhoda Lu Age: 68 yrs Sex: Female : 1950 Arrival Date: 01/03/2019 Time: 15:57 Bed 3 Private MD: ED Physician Eamon Burden HPI: 01/03 16:02 This 68 yrs old Black Female presents to ER via EMS with complaints of Chest Pain > 30 ma2 y/o. 16:02 Onset: suddenly, 1 day(s) ago. The pain radiates to Associated signs and symptoms: ma2 Pertinent positives: Pertinent negatives: diaphoresis, lower extremity pain, lower extremity swelling. The chest pain is described as aching. Severity of pain: At its worst the pain was very mild in the emergency department the pain has resolved. EMS care prior to arrival includes: aspirin, nitroglycerin, x 2. Historical: - Allergies: 16:00 Codeine; aj 16:00 Morphine; aj 16:00 TETRACYCLINES; aj 16:00 Demerol; aj - Home Meds: 16:00 amlodipine 10 mg tab 1 tab once daily [Active]; carvedilol 25 mg Oral tab 1 tab 2 times aj per day [Active]; furosemide 20 mg Oral tab 1 tab once daily [Active]; Humulin 70/30 Sub-Q twice a day [Active]; hydralazine 50 mg Oral tab 1 tab 2 times per day [Active]; - PMHx: 16:00 Diabetes - IDDM; Hypertension; Renal Disease; DVT; aj - PSHx: 16:00 Appendectomy; aj - Immunization history:: Adult Immunizations up to date. - Social history:: Smoking status: Patient/guardian denies using tobacco, Patient/guardian denies using alcohol, street drugs, The patient lives with family. - Ebola Screening: : Patient negative for fever greater than or equal to 101.5 degrees Fahrenheit, and additional compatible Ebola Virus Disease symptoms Patient denies exposure to infectious person Patient denies travel to an Ebola-affected area in the 21 days before illness onset No symptoms or risks identified at this time. - Family history:: not pertinent. ROS: 16:02 Constitutional: Negative for fever, chills, and weight loss, ENT: Negative for injury, ma2 pain, and discharge, Neck: Negative for injury, pain, and swelling, Cardiovascular: Negative for chest pain, palpitations, and edema, Respiratory: Negative for shortness of breath, cough, wheezing, and pleuritic chest pain, Abdomen/GI: Negative for abdominal pain, nausea, diarrhea, and constipation, Back: Negative for injury and pain, MS/Extremity: Negative for injury and deformity, Skin: Negative for injury, rash, and discoloration, Neuro: Negative for headache, weakness, numbness, tingling, and seizure, Psych: Negative for depression, anxiety, suicide ideation, homicidal ideation, and hallucinations. 16:02 Cardiovascular: Positive for chest pain, Negative for orthopnea, acute changes. ma2 Exam: 16:02 Constitutional: This is a well developed, well nourished patient who is awake, alert, ma2 and in no acute distress. ENT: Nares patent. No nasal discharge, no septal abnormalities noted. Tympanic membranes are normal and external auditory canals are clear. Oropharynx with no redness, swelling, or masses, exudates, or evidence of obstruction, uvula midline. Mucous membranes moist. Neck: Trachea midline, no thyromegaly or masses palpated, and no cervical lymphadenopathy. Supple, full range of motion without nuchal rigidity, or vertebral point tenderness. No Meningismus. Chest/axilla: Normal chest wall appearance and motion. Nontender with no deformity. No lesions are appreciated. Cardiovascular: Regular rate and rhythm with a normal S1 and S2. No gallops, murmurs, or rubs. Normal PMI, no JVD. No pulse deficits. Respiratory: Lungs have equal breath sounds bilaterally, clear to auscultation and percussion. No rales, rhonchi or wheezes noted. No increased work of breathing, no retractions or nasal flaring. Abdomen/GI: Soft, non-tender, with normal bowel sounds. No distension or tympany. No guarding or rebound. No evidence of tenderness throughout. Back: No spinal tenderness. No costovertebral tenderness. Full range of motion. MS/ Extremity: Pulses equal, no cyanosis. Neurovascular intact. Full, normal range of motion. Neuro: Awake and alert, GCS 15, oriented to person, place, time, and situation. Cranial nerves II-XII grossly intact. Motor strength 5/5 in all extremities. Sensory grossly intact. Cerebellar exam normal. Normal gait. Vital Signs: 16:00 BP 160 / 116; Pulse 89; Resp 21; Temp 98.5; Pulse Ox 91% on R/A; Weight 65.77 kg; aj Height 5 ft. 6 in. (167.64 cm); 17:03 BP 214 / 110; Pulse 96; Resp 14; Pulse Ox 95% on R/A; aj 17:51 BP 202 / 96; Pulse 92; Resp 18; Pulse Ox 95% on R/A; aj 18:04 BP 228 / 103; Pulse 79; Resp 16; Pulse Ox 96% on R/A; aj 18:19 BP 164 / 86; Pulse 66; Resp 15; Pulse Ox 97% on R/A; aj 19:40 BP 172 / 94; Pulse 75; Resp 15; Pulse Ox 98% on R/A; aj 16:00 Body Mass Index 23.40 (65.77 kg, 167.64 cm) aj MDM: 16:02 Differential diagnosis: abnormal EKG, congestive heart failure gastroesophageal reflux ma2 disease (GERD), stable angina, unstable angina. 16:05 Patient medically screened. ne2 18:03 Data reviewed: vital signs, nurses notes, lab test result(s), radiologic studies. ma2 Counseling: I had a detailed discussion with the patient and/or guardian regarding: the historical points, exam findings, and any diagnostic results supporting the discharge/admit diagnosis, the presence of at least one elevated blood pressure reading (>120/80) during this emergency department visit, the need for further work-up and treatment in the hospital. ED course: discussed with dr. gomez. 01/03 16:02 Order name: Basic Metabolic Panel; Complete Time: 18:21 [facility] 01/03 16:02 Order name: CBC with Diff [facility] 01/03 18:02 Interpretation: Within normal limits. [facility] 01/03 16:02 Order name: LFT's; Complete Time: 18:21 [facility] 01/03 16:02 Order name: Magnesium; Complete Time: 18:21 [facility] 01/03 16:02 Order name: NT PRO-BNP; Complete Time: 18:21 [facility] 01/03 16:02 Order name: PT-INR; Complete Time: 16:43 [facility] 01/03 16:02 Order name: Troponin (emerg Dept Use Only); Complete Time: 18:21 [facility] 01/03 16:02 Order name: XRAY Chest (1 view); Complete Time: 16:43 ne2 01/03 16:02 Order name: D-Dimer; Complete Time: 16:43 ne2 01/03 16:43 Order name: CT Chest For PE Angio [facility] 01/03 18:23 Order name: Manual Differential [facility] 01/03 16:02 Order name: EKG; Complete Time: 16:02 [facility] 01/03 16:02 Order name: Cardiac monitoring; Complete Time: 16:18 [facility] 01/03 16:02 Order name: EKG - Nurse/Tech; Complete Time: 16:18 [facility] 01/03 16:02 Order name: IV Saline Lock; Complete Time: 16:18 [facility] 01/03 16:02 Order name: Labs collected and sent; Complete Time: 16:18 [facility] 01/03 16:02 Order name: O2 Per Protocol; Complete Time: 16:18 [facility] 01/03 16:02 Order name: O2 Sat Monitoring; Complete Time: 16:18 ma2 Administered Medications: 16:18 CANCELLED (Inappropriate at this time): morphine 4 mg IVP once aj 16:18 CANCELLED (Inappropriate at this time): Zofran 4 mg IVP once; over 2 minutes aj 17:00 Drug: Nitroglycerin 0.4 mg Route: Sublingual; aj 18:04 Follow up: Response: No adverse reaction; No change in condition aj 18:00 Drug: Labetalol 10 mg Route: IVP; Site: left antecubital; aj 18:19 Follow up: Response: Blood pressure is lowered aj 18:03 Drug: Lasix 20 mg Route: IVP; Site: left antecubital; aj 19:46 Follow up: Response: No adverse reaction aj Disposition: 01/03/19 18:05 Hospitalization ordered by Octavio Gomez for Inpatient Admission. Preliminary diagnosis are Acute systolic (congestive) heart failure, Acute pulmonary edema, Hypertensive heart disease with heart failure, Non-ST elevation (NSTEMI) myocardial infarction. - Bed requested for Telemetry/MedSurg (Inpatient). - Status is Inpatient Admission. aj - Condition is Stable. - Problem is new. - Symptoms are unchanged. UTI on Admission? No Signatures: Dispatcher [employer] Garcia RN RN aj Fitzgerald, Diane, RN RN df Eamon Burden MD MD [facility] Corrections: (The following items were deleted from the chart) 16:18 16:02 morphine 4 mg IVP once ordered. [facility] aj 16:18 16:02 Zofran 4 mg IVP once; over 2 minutes ordered. ne2 aj 18:22 18:05 Hospitalization Ordered by Octavio Gomez MD for Inpatient Admission. Preliminary ne2 diagnosis is Acute systolic (congestive) heart failure; Acute pulmonary edema; Hypertensive heart disease with heart failure. Bed requested for Telemetry/MedSurg (Inpatient). Status is Inpatient Admission. Condition is Stable. Problem is new. Symptoms are unchanged. UTI on Admission? No. ma2 18:34 18:22 01/03/2019 18:05 Hospitalization Ordered by Octavio Gomez MD for Inpatient df Admission. Preliminary diagnosis is Acute systolic (congestive) heart failure; Acute pulmonary edema; Hypertensive heart disease with heart failure; Non-ST elevation (NSTEMI) myocardial infarction. Bed requested for Telemetry/MedSurg (Inpatient). Status is Inpatient Admission. Condition is Stable. Problem is new. Symptoms are unchanged. UTI on Admission? No. ma2 20:13 18:34 01/03/2019 18:05 Hospitalization Ordered by Octavio Gomez MD for Inpatient aj Admission. Preliminary diagnosis is Acute systolic (congestive) heart failure; Acute pulmonary edema; Hypertensive heart disease with heart failure; Non-ST elevation (NSTEMI) myocardial infarction. Bed requested for Telemetry/MedSurg (Inpatient). Status is Inpatient Admission. Condition is Stable. Problem is new. Symptoms are unchanged. UTI on Admission? No. df
[2019-01-03] MEDS ORDERED: FUROSEMIDE 20 MG/ 2ML VIAL ONE (18:12)
[2019-01-03] MEDS ORDERED: LABETALOL 20 MG/4ML SYRINGE IV ONE (18:12)
[2019-01-03 18:23] LABS: Anisocytosis 1+; Blood Morphology Comment NOTED (NOT SEEN); Hypochromasia 1+; Platelet Estimate ADEQ
[2019-01-03] MEDS ORDERED: ONDANSETRON 4 MG/2 ML VIAL IV PRN (19:46)
[2019-01-03] MEDS ORDERED: ACETAMINOPHEN 500 MG TAB PO PRN (19:46)
[2019-01-03] MEDS ORDERED: MANNITOL 25% 12.5 GM/50 ML VIAL IV PRN (20:34)
[2019-01-03] MEDS ORDERED: NA CHLORIDE 0.9% 1,000 ML IV PRN (20:34)
[2019-01-03] MEDS ORDERED: EPOETIN ALFA 10,000 UNIT/ML SQ ONE (20:36)
[2019-01-03] MEDS ORDERED: EPOETIN ALFA 10,000 UNIT/ML VIAL IV SCH (20:45)
[2019-01-03] MEDS ORDERED: ALBUMIN HUMAN 25% 50 ML IV SCH (21:00)
[2019-01-03] MEDS: INSULIN -REGULAR HUMAN 50 UNIT/0.5 ML ML SQ SCH (21:00)
[2019-01-03] MEDS: METOPROLOL TAR 50 MG TAB PO SCH (21:52)
[2019-01-03] MEDS ORDERED: EPOETIN ALFA 10,000 UNIT/ML VIAL ONE (21:54)
--- NOTE | 2019-01-04 02:28 | HP ---
Date of Admission: 01/03/2019 Chief Complaint: Shortness of breath. Consultants: 1. Dr. Crouch with Cardiology. 2. Dr. Magana with Nephrology. Code Status: Full. History Of Present Illness: The patient is a 68-year-old female with past medical history of insulin-dependent diabetes, chronic kidney disease stage 4 to 5 as well as hypertension, who was in her usual state of health until day of admission when the patient had sudden onset of shortness of breath. Shortness of breath was moderate, rapidly progressive and worsening. The patient denies any cough, fever. No chills. No associated chest pain. No nausea or vomiting. The patient states that she was at rest while the shortness of breath occurred. Her symptoms are constant. The patient also reports some concurrent peripheral edema. The patient denies any changes in her medications recently. She does have chronic kidney disease, but is not on dialysis at this time. The patient therefore came into the ER for further evaluation. Upon arrival, her vital signs showed elevated blood pressure of 160/116. She was tachycardic. O2 was 91% on room air. Her workup revealed elevated white blood cell count 13,000. She was anemic at 8.6, however, she states that she has been anemic in the past and recently had blood transfusion. Creatinine was 6.67 , which is above her baseline of about 4. BNP was 88,000. D-dimer was also elevated at 1600. Her chest x-ray showed pulmonary edema. The patient was then referred for admission. When seen in the ER, she was awake, alert, oriented x3, in some mild distress. The patient was given Lasix in the ER and labetalol to bring down her blood pressure. Past Medical History: Diabetes, hypertension, chronic kidney disease stage 4, chronic anemia with recent transfusion. Past Surgical History: Appendectomy. Allergies: TETRACYCLINE, MORPHINE, AND CODEINE. Medications: List reviewed. Social History: The patient denies any tobacco use, alcohol use, or illicit drug use. The patient is , independent in her activities of daily living. Family History: Positive for diabetes and hypertension. Review of Systems: An 11-point system reviewed and negative except as per HPI. Physical Examination: Vital Signs: Blood pressure 160/116, pulse 89, respirations 21, temperature 98.5, O2 91% on room air. General: Awake, alert, oriented x3, ill-appearing female, in mild distress. HEENT: Normocephalic, atraumatic. PERRLA. EOMI. Moist mucous membranes. Oropharynx is clear. Conjunctivae anicteric. Neck: Supple. Trachea midline. The patient has positive JVD. CV: S1, S2. Sinus rhythm. III/ systolic murmur. Peripheral pulses present. Respiratory: Diminished breath sounds, especially at the bases. Some crackles are present. No wheezing. No use of accessory muscles. Gastrointestinal: Abdomen is soft, nontender, nondistended. Positive bowel sounds. No guarding or rigidity. Extremities: No clubbing or cyanosis. The patient has 2+ edema, bilateral lower extremities. No calf tenderness. Neurologic: Cranial nerves 2-12 intact grossly. No focal neurological deficit. Speech is normal. Strength is 5/5 in bilateral upper and lower extremities. Sensation intact to light touch. Skin: No rashes. Normal skin turgor. Psychiatric: Mood is okay. Affect is full. Insight and judgment are good. Laboratory Data: D-dimer 1676. INR is 1.02. Sodium 141, potassium 3.9, chloride 107, CO2 23, BUN 65, creatinine 6.67, glucose 159, and calcium 8.7. Magnesium 2.7. Troponin 0.07. BNP 88,530. Albumin is 3.3. WBC 13, H and H 8.6/27, platelets 351, neutrophils 88%, 1% bands. Chest x-ray shows mild-to- moderate bilateral pulmonary opacities, probably represent pulmonary edema. Assessment: A 68-year-old female with: 1. Acute new-onset congestive heart failure. We will start on diuretics. We will need to monitor creatinine. Monitor I's and O's, daily weights. We will obtain echocardiogram, cardiology consultation. We will hold off on CATRINA inhibitor due to acute on chronic kidney injury. 2. Acute on chronic kidney injury stage IV. We will consult Dr. Magana, the patient's primary auto radio mechanic. We will monitor creatinine level. Avoid NSAIDs. We will need to monitor closely as the patient is on diuretics. The patient is still making urine. Electrolytes are normal. 3. Mild aortic stenosis. The patient does have a murmur. We will obtain echocardiogram. Last known ejection fraction from 2017 was 74%. 4. Accelerated hypertension. Blood pressure was in the [address] on p.r.n. medications. Resume home medications. Monitor closely. 5. Diabetes mellitus type 2, non-insulin requiring, with hyperglycemia. We will continue on sliding scale insulin and monitor Accu-Cheks. 6. Anemia of chronic disease. Hemoglobin is 8.6. We will continue to monitor. The patient recently had blood transfusions in the outpatient center. 7. Neutrophilic leukocytosis, unclear etiology, may be acute phase reactant. We will obtain UA. No signs of infection at this time. 8. Elevated D-dimer, unclear etiology. The patient's symptoms seem to be stemming from her congestive heart failure. Doubt PE or DVT. The patient does have chronic kidney disease. Cannot give IV contrast. We will follow up on echo report to rule out right ventricular strain. 9. Deep vein thrombosis prophylaxis with Lovenox renally dosed. 10. Elevated troponin level, likely due to acute congestive heart failure exacerbation. Plan: Admit the patient to Med-Surg, place as inpatient. Length Of Stay: Greater than 2 midnights. HUI Voice ID: [id number] [email or web address]
[2019-01-04] MEDS: HYDRALAZINE HCL 20 MG/ML VIAL IV PRN (05:07)
[2019-01-04 05:39] LABS: Urine Appearance CLEAR; Urine Bilirubin NEGATIVE (NEG); Urine Blood NEGATIVE (NEG); Urine Color YELLOW; Urine Glucose 1+ (NEG); Urine Protein 3+ (NEG); Urine Specific Gravity 1.015 (1.005-1.030); Urine Urobilinogen 0.2 mg/dL (0.2-1.0)
[2019-01-04 05:57] LABS: Urine Bacteria <20 /HPF (<20); Urine Culture Reflex Order REFLEXED; Urine RBC NONE SEEN /HPF (NONE SEEN)
[2019-01-04 06:16] LABS: Absolute Lymphocytes (CBC) 0.5 K/uL (0.7-4.9); Absolute Monocytes 0.8 K/uL (0.1-1.3); Absolute Neutrophil 6.1 K/uL (1.8-8.0); Basophils % 0.5 % (0-1.3); Eosinophils % 2.5 % (0-4.4); Hematocrit 23.2 % (36.0-45.0); Lymphocytes % 6.8 % (15.3-44.8); MPV 8.8 fL (7.6-11.3); Monocytes % 10.8 % (3.3-12.3); RBC Red Blood Cell Count 2.52 M/uL (3.86-4.86)
[2019-01-04 06:48] LABS: Albumin 2.7 g/dL (3.4-5.0); Bilirubin Total 0.4 mg/dL (0.2-1.0); Phosphorus 5.2 mg/dL (2.5-4.9); Potassium 4.1 mmol/L (3.5-5.1); Protein, Total 6.1 g/dL (6.4-8.2); Uric Acid 7.2 mg/dL (2.6-6.0)
--- NOTE | 2019-01-04 07:14 | EKG ---
Test Date: 2019-01-03 Test Time: 16:09:10 Clinical Social Work Aide: SUE MEASUREMENT RESULTS: Intervals: Rate: 101 ME: 114 QRSD: 76 QT: 370 QTc: 479 [place]: P: 43 ME: 114 QRS: -26 T: 39 INTERPRETIVE STATEMENTS: Sinus tachycardia with premature supraventricular complexes Otherwise normal ECG Compared to ECG 12/13/2018 20:24:07 Atrial premature complex(es) now present Sinus rhythm no longer present Electronically Signed On 01-04-19 07:12:42 CDT by Jonathan Choudhury
[2019-01-04] MEDS: INSULIN -REGULAR HUMAN 50 UNIT/0.5 ML ML SQ SCH ×4 (07:30→21:00)
[2019-01-04] MEDS: METOPROLOL TAR 50 MG TAB PO SCH ×2 (09:08→21:07)
[2019-01-04] MEDS: FUROSEMIDE 40 MG/4 ML VIAL IV SCH ×2 (09:08→16:37)
[2019-01-04] MEDS: HYDRALAZINE HCL 25 MG TABLET PO SCH ×3 (09:09→21:06)
[2019-01-04] MEDS: CALCITROL 0.25 MCG CAP PO SCH (09:10)
[2019-01-04] MEDS: VITAMIN D 5,000 UNIT CAP PO SCH (09:10)
--- NOTE | 2019-01-04 15:10 | CON ---
Date of Consultation: 01/04/[address] Cloud's service on 01/03/2019. I saw the patient on 01/04/2019. Reason For Consultation: Congestive heart failure, acute on chronic renal failure. History Of Present Illness: Ms. Lu is a 68-year-old black woman, who has no previous cardiac his tory. She sees Dr. Magana for chronic renal insufficiency. Has had a history of hypertension, diab etes, and deep venous thrombosis. She came in with shortness of breath, was found to have congestive heart failure on chest x-ray. She was also found to have a creatinine of 6.67, hemoglobin of 8.6, [place] [address]. Her EKG showed left axis deviation, left atrial enlargement, and sinus rhythm. She denied any syncope. Denied any palpitation. Denied any recent fever, chills. Past Medical History: As stated above. Allergies: SHE IS ALLERGIC TO CODEINE, TETRACYCLINES, AND MORPHINE. Review of Systems: Negative. Social History: Negative for tobacco, drugs. Family History: Positive for hypertension. Medications: At home include Coreg, Lasix, hydralazine, Aldactone, and Norvasc. Physical Examination: Vital Signs: She was in sinus rhythm. Her blood pressure is 172/94. HEENT: Negative. Neck: Supple without any bruit, lymphadenopathy, JVD, or thyromegaly. Chest: Revealed bilateral rales at the bases. Cardiac: Revealed a regular rhythm and rate. S4 gallops and a 2/6 systolic ejection murmur radiatin g to the carotid. Abdomen: Benign. Extremities: Revealed 1+ edema. Diagnostic Data: Creatinine is 6.67, hemoglobin 8.6, [place] [address]. Troponin 0.07. BNP is 8 8530. D-dimer is 1676. Chest x-ray shows CHF. EKG showed left atrial enlargement and sinus rhythm. Echocardiogram in 2017 shows mild aortic stenosis and normal ejection fraction. Impression And Plan: 1.Acute on chronic diastolic congestive heart failure. 2.Acute on chronic renal failure. 3.Mild aortic stenosis history 2 years ago. 4.Elevated D-dimer. Troponin and BNP secondary to renal failure, congestive heart failure. 5.Uncontrolled hypertension. 6.Anemia. 7.Elevated white count. 8.History of deep vein thrombosis. 9.History of diabetes. Ms. Lu is rather very ill. I think she needs an echocardiogram, which is already planned. We ne ed to check on her ejection fraction, left ventricular compliance as well as aortic valve. Renal con sultation is pending. I have a feeling she is going to need dialysis at least temporarily. I will l eave this up to Dr. Magana. I agree with the present regimen. We will see what the echo shows prio r to making further decisions. KATHY/WILLA Voice ID: [id number] Report ID: [id number]
--- NOTE | 2019-01-04 15:55 | PN ---
Date of Progress Note: 01/04/2019 Subjective: The patient is seen and examined. Chart reviewed and case discussed with RN and Dr. Glynn. The patient states she is doing well. No acute events overnight. Shortness of breath has imp roved. Medications: List reviewed. Physical Examination: Vital Signs: Temperature 98.2, heart rate 69, blood pressure 170/77, respirations 17, O2 93% on 2 L via nasal cannula. General: Awake, alert, oriented x3. Elderly female. In mild distress. CV: S1, S2. Murmur present. Respiratory: Diminished breath sounds. Extremities: No clubbing or cyanosis. The patient has peripheral edema 2+. Neurologic: Nonfocal. Laboratory Data: Sodium 140, potassium 4.1, chloride 109, CO2 22, BUN 68, creatinine 6.96, glucose 1 39, uric acid 7.2, calcium 8.5, phosphorus 5.2, albumin 2.7. WBC 7.7, H and H 7.5, 23.2, platelets 3 01, neutrophils 79%. Assessment And Plan: A 68-year-old female with. 1.Acute new onset congestive heart failure. We will continue diuretics. We will monitor I's and O' s. Echocardiogram pending. Appreciate Dr. Choudhury's input. 2.Acute on chronic kidney injury stage IV. Dr. Magana is on board. The patient may need to be ini tiated on dialysis. The patient does have elevated magnesium and phosphorus. 3.Mild aortic stenosis. We will re-evaluate with echocardiogram. 4.Accelerated hypertension. Blood pressure has now improved. Continue p.r.n. medications. 5.Diabetes mellitus type 2 [id number] with hyperglycemia. We will continue sliding scale insulin and monitor Accu-Cheks. 6.Acute on chronic anemia secondary to anemia of chronic disease. Hemoglobin dropped down to 7.5. The patient has been receiving iron as well as recent blood transfusions. We will obtain Hemoccult t esting. The patient denies any bleeding at this time. 7.Neutrophilic leukocytosis, resolved. UA was negative. 8.Elevated D-dimer, unclear etiology. Doubt any VTE, likely related to her chronic conditions. 9.Elevated troponin level, likely due to acute congestive heart failure exacerbation. 10.Deep venous thrombosis prophylaxis with Lovenox renally dosed. Plan: We will continue to diurese. Follow up on echocardiogram. The patient may need to be started on dialysis with touch base with Nephrology. /WILLA Voice ID: [id number] Report ID: [id number]
[2019-01-04] MEDS ORDERED: ENOXAPARIN 30 MG/0.3 ML SQ SCH (17:00)
--- NOTE | 2019-01-04 18:23 | P.CNS ---
Date of Consult: 01/04/19 Reason for Consult: CKD V Requesting Physician: Octavio Cloud Chief Complaint: Dyspnea History of Present Illness: The patient is a 68-year-old female with past medical history of insulin- dependent diabetes, chronic kidney disease stage 4 to 5 as well as hypertension , who was in her usual state of health until day of admission when the patient had sudden onset of shortness of breath. Shortness of breath was moderate, rapidly progressive and worsening. The patient denies any cough, fever. No chills. No associated chest pain. No nausea or vomiting. The patient states that she was at rest while the shortness of breath occurred. Her symptoms are constant. The patient also reports some concurrent peripheral edema. The patient denies any changes in her medications recently. She does have chronic kidney disease, but is not on dialysis at this time. The patient therefore came into the ER for further evaluation. Upon arrival, her vital signs showed elevated blood pressure of 160/116. She was tachycardic. O2 was 91% on room air. Her workup revealed elevated white blood cell count 13,000. She was anemic at 8.6, however, she states that she has been anemic in the past and recently had blood transfusion. Creatinine was 6.67, which is above her baseline of about 4. BNP was 88,000. D-dimer was also elevated at 1600. Her chest x-ray showed pulmonary edema. 16:02 This 68 yrs old Black Female presents to ER via EMS with complaints of Chest Pain > 30 ma2 y/o. 16:02 Onset: suddenly, 1 day(s) ago. The pain radiates to Associated signs and symptoms: ma2 Pertinent positives: Pertinent negatives: diaphoresis, lower extremity pain, lower extremity swelling. The chest pain is described as aching. Severity of pain: At its worst the pain was very mild in the emergency department the pain has resolved. EMS care prior to arrival includes: aspirin, nitroglycerin, x 2. Allergies codeine Allergy (Verified 01/03/19 22:19) Nausea/Vomiting/itching morphine Allergy (Verified 01/03/19 22:19) AMS TETRACYCLINES Allergy (Uncoded 11/24/18 10:40) Itching/Hives/Rash Home medications list reviewed: Yes Home Medications: Furosemide 80 mg PO BID PRN 01/03/19 Hydralazine [Apresoline*] 75 mg PO TID 01/03/19 - Past Medical/Surgical History Diabetic: Yes -: ERSD -: diabetes -: HTN -: DVT -: appy - Social History Alcohol use: No CD- Drugs: No Caffeine use: Yes Place of Residence: Home Review of Systems 10-point ROS is otherwise unremarkable General: Weakness, Malaise Respiratory: SOB with Excertion Neurological: Weakness Physical Examination Temp Pulse Resp BP Pulse Ox 97.8 F 68 16 155/72 H 93 01/04/19 16:00 01/04/19 16:37 01/04/19 16:00 01/04/19 16:37 01/04/19 16:00 General: In no apparent distress, Oriented x3, Cooperative HEENT: Atraumatic Neck: Supple Respiratory: Clear to auscultation bilaterally Cardiovascular: Regular rate/rhythm, Edema Gastrointestinal: Normal bowel sounds, Soft and benign, Non-distended Integumentary: No rashes, No cyanosis Neurological: Normal speech Laboratory Data (last 24 hrs) 01/03/19 16:14: WBC 13.0 H, Hgb 8.6 L, Hct 27.0 L, Plt Count 351 Imagings Data: EXAM DESCRIPTION: [place] Single View01/03/2019 4:27 pm CLINICAL HISTORY: Chest pain COMPARISON: December 13, 2018 FINDINGS: Vtcd-mr-wehzzlpu bilateral pulmonary opacities. The heart is normal size. Small pleural effusions are present IMPRESSION: Cfeu-tv-eumuxcpr bilateral pulmonary opacities probably represent pulmonary edema Conclusions/Impression: A/ CKD V with proteinuria. Denies uremic symptoms at this time. Diastolic CHF, A/C. HTN with CKD/ CHF. DM II with CKD. Anemia in CKD. OSWALDO/ Secondary HyperPTH. P/ Continue current POC and Medications. Agree with furosemide. Give Epo. Start Vitamin D and binders. Check Hepatitis panel. Will titrate antihypertensive as needed. Cardiology note reviewed. Plan for echocardiogram. Renal diet. No NSAIDs. AM labs. Daily weight. Discussed the patient's condition at length with the patient and her parents. She is considering starting dialysis but wants to discuss it with her first. Thank you for the consultation. Case discussed with Dr. Cloud Critical Care: No
[2019-01-04] MEDS ORDERED: NA CHLORIDE 0.9% 1,000 ML IV PRN (20:50)
[2019-01-04] MEDS ORDERED: MANNITOL 25% 12.5 GM/50 ML VIAL IV PRN (20:50)
[2019-01-04] MEDS ORDERED: ALBUMIN HUMAN 25% 50 ML IV SCH (21:00)
[2019-01-04] MEDS ORDERED: DOCUSATE NA 100 MG CAP PO PRN (21:06)
[2019-01-05 04:49] LABS: RBC Red Blood Cell Count 2.52 M/uL (3.86-4.86)
[2019-01-05 05:00] LABS: Absolute Lymphocytes (CBC) 0.3 K/uL (0.7-4.9); Absolute Monocytes 0.8 K/uL (0.1-1.3); Absolute Neutrophil 5.8 K/uL (1.8-8.0); Albumin 2.7 g/dL (3.4-5.0); Basophils % 0.4 % (0-1.3); Bilirubin Total 0.4 mg/dL (0.2-1.0); Eosinophils % 3.2 % (0-4.4); Hematocrit 23.3 % (36.0-45.0); Lymphocytes % 4.8 % (15.3-44.8); Monocytes % 10.8 % (3.3-12.3); Potassium 4.3 mmol/L (3.5-5.1); Protein, Total 6.4 g/dL (6.4-8.2)
[2019-01-05] MEDS: HYDRALAZINE HCL 20 MG/ML VIAL IV PRN ×2 (05:26→18:45)
[2019-01-05] MEDS ORDERED: FLEET ENEMA ADULT PR ONE (06:13)
[2019-01-05] MEDS: INSULIN -REGULAR HUMAN 50 UNIT/0.5 ML ML SQ SCH ×4 (07:30→20:45)
[2019-01-05] MEDS ORDERED: CEFAZOLIN/SWI 1gm 1 GM/10 ML SYR IV SCH (07:45)
[2019-01-05] MEDS: METOPROLOL TAR 50 MG TAB PO SCH ×2 (08:03→20:46)
[2019-01-05] MEDS: FUROSEMIDE 40 MG/4 ML VIAL IV SCH ×2 (08:03→18:53)
[2019-01-05] MEDS: HYDRALAZINE HCL 25 MG TABLET PO SCH ×3 (08:04→20:46)
[2019-01-05] MEDS: CALCITROL 0.25 MCG CAP PO SCH (08:04)
[2019-01-05] MEDS: VITAMIN D 5,000 UNIT CAP PO SCH (08:04)
--- NOTE | 2019-01-05 08:24 | ECHO ---
HEIGHT: 5 ft 6 in WEIGHT: 134 lb 3.2 oz DATE OF STUDY: 01/05/[address]: Octavio Cloud MD 2-DIMENSIONAL: YES M.MODE: YES DOPPLER: YES COLOR FLOW: YES TDS: NO PORTABLE: NO DEFINITY: NO BUBBLE STUDY: NO DIAGNOSIS: CONGESTIVE HEART FAILURE CARDIAC HISTORY: CATHERIZATION: NO SURGERY: NO PROSTHETIC VALVE: NO PACEMAKER: NO MEASUREMENTS (cm) DIASTOLIC (NORMALS) SYSTOLIC (NORMALS) IVSd 1.2 (0.6-1.2) LA Diam 4.0 (1.9-4.0) LVEF 52% LVIDd 4.0 (3.5-5.7) LVIDs 2.9 (2.0-3.5) %FS 26% LVPWd 1.2 (0.6-1.2) Ao Diam 2.4 (2.0-3.7) 2 DIMENSIONAL ASSESSMENT: RIGHT ATRIUM: NORMAL LEFT ATRIUM: DILATED RIGHT VENTRICLE: NORMAL LEFT VENTRICLE: NORMAL TRICUSPID VALVE: NORMAL MITRAL VALVE: MITRAL ANNULAR CALCIFICATION PULMONIC VALVE: NORMAL AORTIC VALVE: STENOSIS PERICARDIAL EFFUSION: NONE AORTIC ROOT: NORMAL LEFT VENTRICULAR WALL MOTION: NORMAL. DOPPLER/COLOR FLOW: MILD MITRAL REGURGITATION AND TRICUSPID REGURGITATION. ESTIMATED RIGHT VENTRICULAR SYSTOLIC PRESSURE 55 MMHG (MODERATE PULMONARY HYPERTENSION). MILD AORTIC STENOSIS. PEAK/MEAN GRADIENT 28/14 ESTIMATION AORTIC VALVE AREA 1.5 CM SQUARED. COMMENTS: NORMAL LEFT VENTRICULAR EJECTION FRACTION. DILATED LEFT ATRIUM. MITRAL ANNULAR CALCIFICATION. MILD AORTIC STENOSIS. MILD MITRAL REGURGITATION AND TRICUSPID REGURGITATION. LARGE LEFT PLEURAL EFFUSION NOTED. MODERATE PULMONARY HYPERTENSION ESTIMATED RIGHT SYSTOLIC PRESSURE 55 MMHG. TECHNOLOGIST: NILAY WILDER RDCS
[2019-01-05] MEDS ORDERED: LIDOCAINE 1% 20 ML MDV ONE (09:00)
[2019-01-05] MEDS ORDERED: HEPARIN 5000 UNIT/ML 1 ML VIAL ONE (09:00)
[2019-01-05] MEDS ORDERED: NA CHLORIDE 0.9% 100 ML IV ONE (09:10)
[2019-01-05] MEDS ORDERED: CEFAZOLIN/SWI 1gm 1 GM/10 ML SYR ONE (09:25)
[2019-01-05] MEDS ORDERED: NA CHLORIDE 0.9% 1,000 ML ONE (09:25)
[2019-01-05] MEDS ORDERED: LIDOCAINE 1% MPF 5 ML VIAL ONE (09:39)
[2019-01-05] MEDS ORDERED: FENTANYL CITR 100 MCG/2 ML ONE (09:39)
[2019-01-05] MEDS ORDERED: PROPOFOL 200 MG/20 ML VIAL IV ONE (09:39)
[2019-01-05] MEDS ORDERED: MIDAZOLAM HCL 2 MG/2 ML INJ ONE (09:40)
--- NOTE | 2019-01-05 10:22 | P.OP ---
Preoperative diagnosis: ARF Postoperative diagnosis: same Primary procedure: RIJ Tessanchez Secondary procedure: Fluoroscopy Anesthesia: MAC Estimated blood loss: min Specimen: none Findings: Normal Anatomy Complications: None Transferred to: Recovery Room Condition: Good
--- NOTE | 2019-01-05 11:16 | RAD REPORT ---
EXAM DESCRIPTION: RAD - Chest Single View - 01/05/2019 11:07 am CLINICAL HISTORY: Device placement central venous line placement COMPARISON: none FINDINGS: A central venous line has been inserted with its limbs in the superior vena cava. A pneumothorax is not present. Mild to moderate bilateral pulmonary opacities may represent pulmonary edema. Heart remains enlarged.
--- NOTE | 2019-01-05 11:23 | PREOPCON ---
Date of Consultation: 01/04/2019 Reason For Consultation: The needs emergent dialysis. History Of Present Illness: The patient is a 68-year-old female, who has had chronic kidney issues. She was admitted with dyspnea and workup revealed worsening of the renal failure, eventually point w here she now requires dialysis. She is awake and alert, has agree to dialysis and I was consulted to place a tunneled catheter. She denies any sore throat, runny nose, cough, headaches, or dizziness. No chest pain. No fever or chills. Review of Systems: Otherwise unremarkable. Past Medical History: Significant for acute renal failure, diabetes, hypertension, and DVT. Past Surgical History: Appendectomy. Allergies: INCLUDE CODEINE, MORPHINE, AND TETRACYCLINE. Social History: She does not smoke or drink. Family History: Noncontributory. Physical Examination: Vital signs: Stable. She is afebrile. General: She is awake, alert, and oriented x3. Head and Neck: Cranial nerves 2 through 12 grossly within limits. No neck masses. No JVD. Throat clear. Neck is supple. Chest: Clear. Heart: S1 and S2. Abdomen: Soft. Extremities: Neurovascularly intact. Neurologic: Nonfocal. Laboratory Data: White count is 7.2, H and H is low at 7.6 and 23.3, platelets are 260. There is a slight left shift. INR is 1.02. BUN is 70, creatinine is 7.2. Glucose is 115 this morning. Assessment: A 68-year-old female with multiple medical problems, acute renal failure. Plan: We will go ahead and place the Tesio catheter. The patient understands the risks, benefits, a lternatives and agrees to procedure. /MODL Voice ID: [id number] Report ID: [id number]
--- NOTE | 2019-01-05 13:55 | RAD REPORT ---
EXAM DESCRIPTION: RAD - Fluoroscopy <1 Hour - 01/05/2019 10:25 am CLINICAL HISTORY: Device placement central venous catheter placement FINDINGS: A central venous catheter was placed into the superior vena cava. 2 fluoroscopic spot images are submitted. Zero fluoroscopy time. The examination was performed by Dr. Gómez
[2019-01-05] MEDS: EPOETIN ALFA 10,000 UNIT/ML VIAL IV SCH (17:10)
--- NOTE | 2019-01-05 21:44 | PN ---
Date of Progress Note: 01/05/2019 Subjective: The patient is seen and examined. Chart reviewed and case discussed with RN and Dr. Magana as well as Dr. Gómez. The patient went for dialysis catheter placement today. Tolerated procedure well and the patient will be starting dialysis today. Medications: List reviewed. Physical Examination: Vital Signs: Temperature 97, heart rate 65, blood pressure 214/96, respirations 16, O2 93% on room a ir. Repeat blood pressure was 181/87. General: Awake, alert, oriented x3. Elderly female, somewhat ill appearing. CV: S1, S2. Peripheral pulses present. Regular rate and rhythm. Respiratory: Diminished breath sounds. Crackles present. No wheezing or stridor. Gastrointestinal: Abdomen is soft, nontender, nondistended. Positive bowel sounds. Extremities: No clubbing or cyanosis. The patient has peripheral edema. Neurologic: Nonfocal. Laboratory Data: Sodium 140, potassium 4.3, chloride 108, CO2 21, BUN 70, creatinine 7.2, glucose 11 2, calcium 8.3, albumin 2.7. WBC 7.2, H and H 7.6, 23.3, platelets 260, neutrophils 80%. Hemoccult blood is negative. Urine culture growing out mixed laquita. Echocardiogram shows EF of 52%, mild aortic stenosis, large left pleural effusion, moderate pulmonary hypertension. Assessment And Plan: A 68-year-old female with: 1.New onset congestive heart failure. Ejection fraction 52%. 2.Aortic stenosis. 3.Hypertensive. 4.Large left pleural effusion. 5.Moderate pulmonary hypertension. 6.Mlxjx-yz-avpubgo kidney injury stage 5. The patient to be started on dialysis today. The patient received hemodialysis catheter this morning. 7.Accelerated hypertension. Continue p.r.n. medications and home medications. 8.Diabetes mellitus type 2, xps-qvtxgef-vyubskdia with hyperglycemia. Continue sliding scale insuli n. Monitor Accu-Cheks. 9.Acphn-kk-iwnhehl anemia secondary to anemia of chronic disease. Hemoglobin stable at 7.6. We rudi l continue to monitor and transfuse as needed. Hemoccult was negative. 10.Elevated troponin level likely due to acute congestive heart failure exacerbation. 11.Deep venous thrombosis prophylaxis with Lovenox renally dosed. Plan: Initiate dialysis. /WILLA Voice ID: [id number] Report ID: [id number]
--- NOTE | 2019-01-05 22:14 | OP ---
Date of Procedure: 01/05/2019 Surgeon: Amish Gómez MD Preoperative Diagnosis: Acute renal failure. Postoperative Diagnosis: Acute renal failure. Procedure Performed: Right IJ Tesio catheter placement and interpretation of intraoperative fluorosc opy. Estimated Blood Loss: Minimal. Specimen: None. Findings: Normal anatomy. Anesthesia: MAC. Complications: None. Disposition: The patient tolerated the procedure in stable condition and taken to Recovery in good g eneral condition. Procedure In Detail: The patient was brought to the OR and placed in supine position. MAC anesthesi a was begun. The patient was prepped and draped in usual sterile fashion. Lidocaine 1% infiltrated locally. An 18-gauge needle was used to access the right IJ vein. Guidewire was passed. Position w as confirmed with fluoroscopy. Counterincision made on the right anterior chest. Subcutaneous tissu e divided and tunneling device was used to tunnel the catheter between the 2 wounds. Seldinger techn ique was used. Tip of the catheter was placed in the SVC under fluoroscopy and then catheter flushed with heparin and packed with heparin. The wound closed with 3-0 chromic and the catheter secured to the chest wall with 3-0 nylon. Sterile dressing was applied. The patient was awakened and taken to Recovery in good general condition. A c hest x-ray has been ordered. /MODL Voice ID: [id number] Report ID: [id number]
[2019-01-06 05:08] LABS: Absolute Lymphocytes (CBC) 0.6 K/uL (0.7-4.9); Absolute Monocytes 0.8 K/uL (0.1-1.3); Absolute Neutrophil 5.7 K/uL (1.8-8.0); Basophils % 0.4 % (0-1.3); Eosinophils % 5.3 % (0-4.4); Hematocrit 24.7 % (36.0-45.0); Lymphocytes % 7.4 % (15.3-44.8); MPV 8.8 fL (7.6-11.3); Monocytes % 10.9 % (3.3-12.3); RBC Red Blood Cell Count 2.71 M/uL (3.86-4.86)
[2019-01-06 05:28] LABS: Albumin 2.5 g/dL (3.4-5.0); Bilirubin Total 0.3 mg/dL (0.2-1.0); Potassium 4.1 mmol/L (3.5-5.1)
--- NOTE | 2019-01-06 07:22 | P.PN ---
Date of Service: 01/05/19 Vital Signs Temp Pulse Resp BP Pulse Ox 97.0 F 69 16 151/72 H 96 01/06/19 04:00 01/06/19 04:00 01/06/19 04:00 01/06/19 04:00 01/06/19 04:00 Medications Acetaminophen (Tylenol -Extra Strength) 500 mg PO Q4HP PRN PRN Reason: Pain scale 2-4 (Mild) Stop: 02/02/19 19:47 Last Admin: 01/04/19 22:50 Dose: 500 mg Calcitriol (Rocaltrol) 0.5 mcg PO DAILY [facility] Stop: 02/03/19 09:01 Last Admin: 01/05/19 08:04 Dose: 0.5 mcg Cholecalciferol (Vitamin D 5,000 Iu Cap) 5,000 unit PO DAILY [facility] Stop: 02/03/19 09:01 Last Admin: 01/05/19 08:04 Dose: 5,000 unit Docusate Sodium (Colace Cap) 100 mg PO DAILY PRN PRN Reason: CONSTIPATION Stop: 02/03/19 21:07 Last Admin: 01/04/19 21:34 Dose: 100 mg Epoetin Iglesia (Procrit) 10,000 unit IV EVERY HD [facility] Stop: 02/03/19 21:01 Last Admin: 01/05/19 17:10 Dose: 10,000 unit Furosemide (Lasix) 40 mg IV BIDL [facility] Stop: 02/03/19 09:01 Last Admin: 01/05/19 18:53 Dose: 40 mg Heparin Sodium (Porcine) (Heparin 1,000 Units/Ml) 6,000 unit IJ EVERY HD PRN PRN Reason: FLUSH AFTER EACH USE Stop: 02/03/19 20:51 Hydralazine HCl (Apresoline) 10 mg IV Q6HP PRN PRN Reason: Titrate to SBP (MUST DEFINE) Stop: 02/03/19 01:31 Last Admin: 01/05/19 18:45 Dose: 10 mg Hydralazine HCl (Apresoline) 75 mg PO TID [facility] Stop: 02/03/19 09:01 Last Admin: 01/05/19 20:46 Dose: 75 mg Albumin Human (Albumin 25%) 50 mls @ 100 mls/hr IV EVERY HD [facility] Stop: 02/03/19 21:01 Cefazolin Sodium (Ancef 1 Gm/10 Ml Swi Ivp) 1 gm in 10 mls @ 600 mls/hr IV OC [facility]; Protocol Stop: 01/06/19 12:00 Last Admin: 01/05/19 09:45 Dose: 10 mls Insulin Human Regular (Novolin -R) 0 unit SQ ACHS [facility]; Protocol Stop: 02/02/19 21:01 Last Admin: 01/05/19 20:45 Dose: Not Given Mannitol (Mannitol 12.5 Gm/50 Ml Vial) 12.5 gm IV EVERY HD PRN PRN Reason: Titrate to SBP (MUST DEFINE) Stop: 02/03/19 20:51 Metoprolol Tartrate (Lopressor) 25 mg PO BID [facility] Stop: 02/02/19 21:01 Last Admin: 01/05/19 20:46 Dose: 25 mg Ondansetron HCl (Zofran) 4 mg IV Q4H PRN PRN Reason: NAUSEA / VOMITING Stop: 02/02/19 19:47 Sodium Chloride (Normal Saline Flush) 10 ml IV BID [facility] Stop: 02/02/19 21:01 Last Admin: 01/05/19 20:47 Dose: 10 ml Assessment/ Plan: Nephrology. Seen and examined at dialysis. She had her HD CVC placed earlier today. CPS stable without CP or SOB. No acute events overnight. Vitals, medications, blood work and imaging reviewed in the chart. General: In no apparent distress, Oriented x3, Cooperative HEENT: Atraumatic Neck: Supple Respiratory: Clear to auscultation bilaterally Cardiovascular: Regular rate/rhythm, Edema Gastrointestinal: Normal bowel sounds, Soft and benign, Non-distended Integumentary: No rashes, No cyanosis Neurological: Normal speech Laboratory Data (last 24 hrs) 01/03/19 16:14: WBC 13.0 H, Hgb 8.6 L, Hct 27.0 L, Plt Count 351 Imagings Data: EXAM DESCRIPTION: [place] Single View01/03/2019 4:27 pm CLINICAL HISTORY: Chest pain COMPARISON: December 13, 2018 FINDINGS: Cmwr-gr-pdwyveha bilateral pulmonary opacities. The heart is normal size. Small pleural effusions are present IMPRESSION: Pasw-wz-pypfekog bilateral pulmonary opacities probably represent pulmonary edema. Echocardiogram: LEFT VENTRICULAR WALL MOTION: NORMAL. DOPPLER/COLOR FLOW: MILD MITRAL REGURGITATION AND TRICUSPID REGURGITATION. ESTIMATED RIGHT VENTRICULAR SYSTOLIC PRESSURE 55 MMHG (MODERATE PULMONARY HYPERTENSION). MILD AORTIC STENOSIS. PEAK/MEAN GRADIENT 28/14 ESTIMATION AORTIC VALVE AREA 1.5 CM SQUARED. COMMENTS: NORMAL LEFT VENTRICULAR EJECTION FRACTION. DILATED LEFT ATRIUM. MITRAL ANNULAR CALCIFICATION. MILD AORTIC STENOSIS. MILD MITRAL REGURGITATION AND TRICUSPID REGURGITATION. LARGE LEFT PLEURAL EFFUSION NOTED. MODERATE PULMONARY HYPERTENSION ESTIMATED RIGHT SYSTOLIC PRESSURE 55 MMHG. Conclusions/Impression: A/ ESRD. First HD 01-05-19. CKD V with proteinuria. Diastolic CHF, A/C. Pulmonary HTN. Left Pleural Effusion. HTN with CKD/ CHF. DM II with CKD. Anemia in CKD. OSWALDO/ Secondary HyperPTH. P/ Continue current POC and Medications. HD initiated today. Next HD tomorrow. Hepatitis panel pending. Will titrate antihypertensive as needed. Renal diet. No NSAIDs. AM labs. Daily weight. Social service consulted for placement at the [facility]. The case was discussed with the patient by phone last night. She agreed to start dialysis. Dr. Gómez was consulted notified for the catheter placement and the HD was initiated today. Dr. Cloud was made aware of the change in the POC.
[2019-01-06] MEDS: INSULIN -REGULAR HUMAN 50 UNIT/0.5 ML ML SQ SCH ×4 (07:30→21:00)
[2019-01-06] MEDS: METOPROLOL TAR 50 MG TAB PO SCH ×2 (08:49→21:29)
[2019-01-06] MEDS: VITAMIN D 5,000 UNIT CAP PO SCH (08:49)
[2019-01-06] MEDS: CALCITROL 0.25 MCG CAP PO SCH (08:49)
[2019-01-06] MEDS: HYDRALAZINE HCL 25 MG TABLET PO SCH ×3 (08:49→21:28)
[2019-01-06] MEDS: FUROSEMIDE 40 MG/4 ML VIAL IV SCH ×2 (08:50→16:20)
[2019-01-06] MEDS: EPOETIN ALFA 10,000 UNIT/ML VIAL IV SCH (12:36)
--- NOTE | 2019-01-06 14:28 | P.PN ---
Date of Service: 01/06/19 Vital Signs Temp Pulse Resp BP Pulse Ox 97.4 F 64 16 178/86 H 94 01/06/19 12:00 01/06/19 12:00 01/06/19 12:00 01/06/19 12:00 01/06/19 12:00 Medications Acetaminophen (Tylenol -Extra Strength) 500 mg PO Q4HP PRN PRN Reason: Pain scale 2-4 (Mild) Stop: 02/02/19 19:47 Last Admin: 01/04/19 22:50 Dose: 500 mg Calcitriol (Rocaltrol) 0.5 mcg PO DAILY [facility] Stop: 02/03/19 09:01 Last Admin: 01/06/19 08:49 Dose: 0.5 mcg Cholecalciferol (Vitamin D 5,000 Iu Cap) 5,000 unit PO DAILY [facility] Stop: 02/03/19 09:01 Last Admin: 01/06/19 08:49 Dose: 5,000 unit Docusate Sodium (Colace Cap) 100 mg PO DAILY PRN PRN Reason: CONSTIPATION Stop: 02/03/19 21:07 Last Admin: 01/04/19 21:34 Dose: 100 mg Epoetin Iglesia (Procrit) 10,000 unit IV EVERY HD [facility] Stop: 02/03/19 21:01 Last Admin: 01/06/19 12:36 Dose: 10,000 unit Furosemide (Lasix) 40 mg IV BIDL [facility] Stop: 02/03/19 09:01 Last Admin: 01/06/19 08:50 Dose: 40 mg Heparin Sodium (Porcine) (Heparin 1,000 Units/Ml) 6,000 unit IJ EVERY HD PRN PRN Reason: FLUSH AFTER EACH USE Stop: 02/03/19 20:51 Last Admin: 01/06/19 12:35 Dose: 6,000 unit Hydralazine HCl (Apresoline) 10 mg IV Q6HP PRN PRN Reason: Titrate to SBP (MUST DEFINE) Stop: 02/03/19 01:31 Last Admin: 01/05/19 18:45 Dose: 10 mg Hydralazine HCl (Apresoline) 75 mg PO TID [facility] Stop: 02/03/19 09:01 Last Admin: 01/06/19 14:08 Dose: 75 mg Albumin Human (Albumin 25%) 50 mls @ 100 mls/hr IV EVERY HD [facility] Stop: 02/03/19 21:01 Insulin Human Regular (Novolin -R) 0 unit SQ ACHS [facility]; Protocol Stop: 02/02/19 21:01 Last Admin: 01/06/19 11:30 Dose: Not Given Mannitol (Mannitol 12.5 Gm/50 Ml Vial) 12.5 gm IV EVERY HD PRN PRN Reason: Titrate to SBP (MUST DEFINE) Stop: 02/03/19 20:51 Metoprolol Tartrate (Lopressor) 25 mg PO BID [facility] Stop: 02/02/19 21:01 Last Admin: 01/06/19 08:49 Dose: 25 mg Ondansetron HCl (Zofran) 4 mg IV Q4H PRN PRN Reason: NAUSEA / VOMITING Stop: 02/02/19 19:47 Sodium Chloride (Normal Saline Flush) 10 ml IV BID [facility] Stop: 02/02/19 21:01 Last Admin: 01/06/19 08:50 Dose: 10 ml Assessment/ Plan: Nephrology. Feeling better. Had her second dialysis today. CPS stable without CP or SOB. No acute events overnight. Vitals, medications, blood work and imaging reviewed in the chart. General: In no apparent distress, Oriented x3, Cooperative HEENT: Atraumatic Neck: Supple Respiratory: Clear to auscultation bilaterally Cardiovascular: Regular rate/rhythm, Edema Gastrointestinal: Normal bowel sounds, Soft and benign, Non-distended Integumentary: No rashes, No cyanosis Neurological: Normal speech Laboratory Data (last 24 hrs) 01/03/19 16:14: WBC 13.0 H, Hgb 8.6 L, Hct 27.0 L, Plt Count 351 Imagings Data: EXAM DESCRIPTION: [place] Single View01/03/2019 4:27 pm CLINICAL HISTORY: Chest pain COMPARISON: December 13, 2018 FINDINGS: Hjoj-rf-uoloaajt bilateral pulmonary opacities. The heart is normal size. Small pleural effusions are present IMPRESSION: Jvfm-kc-heyzdike bilateral pulmonary opacities probably represent pulmonary edema. Echocardiogram: LEFT VENTRICULAR WALL MOTION: NORMAL. DOPPLER/COLOR FLOW: MILD MITRAL REGURGITATION AND TRICUSPID REGURGITATION. ESTIMATED RIGHT VENTRICULAR SYSTOLIC PRESSURE 55 MMHG (MODERATE PULMONARY HYPERTENSION). MILD AORTIC STENOSIS. PEAK/MEAN GRADIENT 28/14 ESTIMATION AORTIC VALVE AREA 1.5 CM SQUARED. COMMENTS: NORMAL LEFT VENTRICULAR EJECTION FRACTION. DILATED LEFT ATRIUM. MITRAL ANNULAR CALCIFICATION. MILD AORTIC STENOSIS. MILD MITRAL REGURGITATION AND TRICUSPID REGURGITATION. LARGE LEFT PLEURAL EFFUSION NOTED. MODERATE PULMONARY HYPERTENSION ESTIMATED RIGHT SYSTOLIC PRESSURE 55 MMHG. Conclusions/Impression: A/ ESRD. First HD 01-05-19. CKD V with proteinuria. Diastolic CHF, A/C. Pulmonary HTN. Left Pleural Effusion. HTN with CKD/ CHF. DM II with CKD. Anemia in CKD. OSWALDO/ Secondary HyperPTH. P/ Continue current POC and Medications. HD today. Next HD Tuesday. Hepatitis panel pending. Start Doxazosin and Ramipril at bedtime; titrate as needed. Renal diet. No NSAIDs. AM labs. Daily weight. Social service consulted for placement at the [facility].
[2019-01-06] MEDS: HYDRALAZINE HCL 20 MG/ML VIAL IV PRN ×2 (16:20→18:25)
--- NOTE | 2019-01-06 16:41 | PN ---
Date of Progress Note: 01/06/2019 Subjective: The patient was seen and examined. Chart reviewed and case discussed with RN. The jessica ent tolerated dialysis well, going again today. Medications: List reviewed. Physical Examination: Vital Signs: Temperature 97.7, heart rate 62, blood pressure 183/72, respirations 16, O2 saturation 98% on 1 L via nasal cannula. General: Awake, alert, oriented x3. Elderly female, not in any acute distress. CV: S1, S2. No murmurs. Respiratory: Moving air well bilaterally. Minimally diminished breath sounds at the bases Gastrointestinal: Abdomen is soft, nontender, and nondistended. Positive bowel sounds. Extremities: No clubbing, cyanosis. Peripheral edema is improved significantly. Neurologic: Nonfocal. Laboratory Data: Sodium 142, potassium 4.1, chloride 110, CO2 23, BUN 44, creatinine 5.12, glucose 9 9, calcium 8.6. WBC 7.5, H and H 8 and 24.7, platelets 295. Neutrophils 76%. Urine culture, mixed laquita. Assessment And Plan: A 68-year-old female with: 1.New onset congestive heart failure. Ejection fraction of 52%, likely due to diastolic dysfunction . We will continue diuretics. The patient's symptoms have significantly improved with dialysis as w ell. Edema is resolved. 2.Epeen-zw-ybrgruy kidney injury stage 5. The patient has been initiated on dialysis, tolerating it well. Appreciate Dr. Magana's input. 3.Zpeeo-ou-hxdsjlv anemia secondary to anemia of chronic disease. Hemoglobin improved currently at 8. We will continue to monitor. No acute bleeding at this time. 4.Aortic stenosis, stable. 5.Hypertensive heart disease. 6.Large left pleural effusion, improved with dialysis. 7.Moderate pulmonary hypertension. 8.Accelerated hypertension. We will continue home medications and IV medications p.r.n. Keep systo lic less than 160. 9.Elevated troponin level likely due to acute congestive heart failure exacerbation. No chest pain, likely due to demand mismatch. 10.Deep venous thrombosis prophylaxis with Lovenox, renally dosed. PLAN: Continue dialysis. The patient will need hemodialysis set up as an outpatient. We will discu ss further with Case Management. SA/MODL Voice ID: [id number] Report ID: [id number]
[2019-01-06] MEDS: DOXAZOSIN 2 MG TAB PO SCH (21:00)
[2019-01-06] MEDS: RAMIPRIL 2.5 MG CAP PO SCH (21:28)
[2019-01-06] MEDS: NS 0.9% VIAL 10 ML ONE (21:31)
[2019-01-07 06:24] LABS: Absolute Lymphocytes (CBC) 0.6 K/uL (0.7-4.9); Absolute Monocytes 0.8 K/uL (0.1-1.3); Absolute Neutrophil 4.1 K/uL (1.8-8.0); Basophils % 0.5 % (0-1.3); Eosinophils % 8.4 % (0-4.4); Hematocrit 23.6 % (36.0-45.0); Lymphocytes % 10.5 % (15.3-44.8); MPV 8.6 fL (7.6-11.3); Monocytes % 12.6 % (3.3-12.3); RBC Red Blood Cell Count 2.59 M/uL (3.86-4.86)
[2019-01-07 06:49] LABS: Albumin 2.4 g/dL (3.4-5.0); Bilirubin Total 0.3 mg/dL (0.2-1.0); Potassium 4.3 mmol/L (3.5-5.1); Protein, Total 6.1 g/dL (6.4-8.2)
[2019-01-07] MEDS: INSULIN -REGULAR HUMAN 50 UNIT/0.5 ML ML SQ SCH ×4 (07:30→21:24)
[2019-01-07] MEDS: FUROSEMIDE 40 MG/4 ML VIAL IV SCH ×2 (09:39→16:12)
[2019-01-07] MEDS: METOPROLOL TAR 50 MG TAB PO SCH ×2 (09:40→21:23)
[2019-01-07] MEDS: HYDRALAZINE HCL 25 MG TABLET PO SCH ×3 (09:40→21:23)
[2019-01-07] MEDS: VITAMIN D 5,000 UNIT CAP PO SCH (09:40)
[2019-01-07] MEDS: CALCITROL 0.25 MCG CAP PO SCH (09:40)
--- NOTE | 2019-01-07 16:25 | PN ---
Date of Progress Note: 01/07/2019 Subjective: The patient is seen and examined. Chart reviewed and case discussed with RN. The patient has been tolerating dialysis well. The patient' s blood pressure still been difficult to control. Medications were adjusted. The patient denies any specific pain or has no complaints. Medications: List reviewed. Physical Examination: Vital Signs: Temperature 97.5, heart rate 64, blood pressure 177/75, respirations 20, O2 99% on room air. General: Awake, alert, oriented x3. Elderly female, frail. CV: S1 and S2. Regular rate and rhythm. Peripheral pulses present. Respiratory: Moving air well bilaterally. No wheezing. PLEASE SEE ADDENDUM FOR ASSESSMENT AND PLAN SA/MODL Voice ID: [id number] Report ID: [id number] [id number]
--- NOTE | 2019-01-07 18:01 | PN ---
Addendum: Laboratory Data: Sodium 143, potassium 4.3, chloride 111, CO2 26, BUN 25, creatinine 3.84, glucose 110, calcium 8.7, albumin 2.4. WBC 6, H and H 8 and 23.6, platelets 267. Assessment: A 68-year-old female with: 1. New onset congestive heart failure, diastolic dysfunction, improved with diuretics and no longer on supplemental oxygen. Edema is resolving. Ejection fraction is 52%. We will continue to monitor I's and O's, daily weights, and sodium restricted diet. 2. Iwnxc-kj-emnbqdd kidney injury stage 5. The patient tolerating dialysis well. Appreciate Dr. Magana's input. Assembler Tester consult for outpatient hemodialysis set up. 3. Cvopt-rt-mebteqd anemia secondary to anemia of chronic disease due to chronic kidney disease. Hemoglobin is stable. We will continue to monitor and transfuse for hemoglobin less than 7. 4. Aortic stenosis, stable. 5. Hypertensive heart disease. 6. Large left pleural effusion, improved. Continue dialysis. We will recheck chest x-ray in a.m. 7. Accelerated hypertension. Blood pressure medications have been adjusted. Continue IV hydralazine p.r.n. for systolic greater than 160. 8. Elevated troponin level due to acute congestive heart failure exacerbation. No chest pain, likely due to demand mismatch. 9. Deep venous thrombosis prophylaxis with Lovenox, renally dosed. Plan: Continue dialysis. Discharge once outpatient dialysis has been set up. /WILLA Voice ID: [id number] Report ID: [id number] JHONATAN
[2019-01-07 20:34] VITALS: BMI 19.7
[2019-01-07] MEDS: RAMIPRIL 2.5 MG CAP PO SCH (21:21)
[2019-01-07] MEDS: DOXAZOSIN 2 MG TAB PO SCH (21:22)
[2019-01-07] MEDS: NS 0.9% VIAL 10 ML ONE (21:26)
[2019-01-08 06:01] LABS: Absolute Lymphocytes (CBC) 0.6 K/uL (0.7-4.9); Absolute Monocytes 0.7 K/uL (0.1-1.3); Basophils % 0.6 % (0-1.3); Eosinophils % 8.9 % (0-4.4); Hematocrit 21.1 % (36.0-45.0); Lymphocytes % 10.5 % (15.3-44.8); MPV 8.3 fL (7.6-11.3); Monocytes % 11.5 % (3.3-12.3)
[2019-01-08 06:15] LABS: Albumin 2.3 g/dL (3.4-5.0); Bilirubin Total 0.3 mg/dL (0.2-1.0); Protein, Total 5.4 g/dL (6.4-8.2)
[2019-01-08] MEDS: INSULIN -REGULAR HUMAN 50 UNIT/0.5 ML ML SQ SCH ×4 (07:30→21:00)
--- NOTE | 2019-01-08 08:26 | RAD REPORT ---
EXAM DESCRIPTION: RAD - Chest Single View - 01/08/2019 6:30 am CLINICAL HISTORY: CHF Chest pain. COMPARISON: Chest Single View dated 01/05/2019; Chest Single View dated 01/03/2019; Chest Single View da shobha 12/13/2018; Chest Single View dated 11/08/2016 FINDINGS: Portable technique limits examination quality. Moderate worsening in bilateral pulmonary opacities and pleural fluid since the comparative study. Th e heart is moderately enlarged in size. Right-sided venous catheter has tip in the SVC. IMPRESSION: Moderate worsening in bilateral pulmonary opacities since comparative study.
[2019-01-08] MEDS: METOPROLOL TAR 50 MG TAB PO SCH ×2 (10:50→21:15)
[2019-01-08] MEDS: CALCITROL 0.25 MCG CAP PO SCH (10:50)
[2019-01-08] MEDS: HYDRALAZINE HCL 25 MG TABLET PO SCH ×3 (10:50→21:15)
[2019-01-08] MEDS: FUROSEMIDE 40 MG/4 ML VIAL IV SCH ×2 (10:51→16:56)
[2019-01-08] MEDS: VITAMIN D 5,000 UNIT CAP PO SCH (10:51)
[2019-01-08] MEDS ORDERED: NA CHLORIDE 0.9% 250 ML ONE (16:25)
--- NOTE | 2019-01-08 19:46 | PN ---
Date of Progress Note: 01/08/2019 Subjective: The patient was seen and examined, chart reviewed and case discussed with RN and Dr. Alonzo nogueira. The patient denies any acute events overnight. No complaints. Medications: List reviewed. Physical Examination: Vital Signs: Temperature 98.6, heart rate 57, blood pressure 132/61, respirations 16, O2 95% on 1 L via nasal cannula. General: Awake, alert, oriented x3. Elderly female, cachectic, BMI 19. CV: S1, S2. Regular rate and rhythm. Peripheral pulses present. Respiratory: Clear to auscultation in the apices. Diminished breath sounds at the bases. Gastrointestinal: Abdomen is soft, nontender, nondistended. Positive bowel sounds. No guarding or rigidity. Extremities: No clubbing, cyanosis, or edema. Neurologic: Nonfocal. Laboratory Data: Sodium 142, potassium 4, chloride 111, CO2 24, BUN 32, creatinine 4.45, glucose 72, calcium 8.3, albumin 2.3. WBC 5.8, H and H 6.9 and 21.1, platelets 242, neutrophils 68%. Repeat he moglobin is 7.1 and 22. Chest x-ray shows moderate worsening of bilateral pulmonary opacities since comparative study. Assessment: A 68-year-old female with: 1.New onset congestive heart failure, diastolic dysfunction, improved with diuretics, now only on 1 L of oxygen via nasal cannula, edema resolved. EF is 52%. Continue monitoring I' and O's, daily cris ghts. Continue free fluid restriction. 2.Acute on chronic kidney injury stage 5. The patient has been started on dialysis this [facility], tolerating it well. The patient will go again for dialysis today. 3.Acute on chronic anemia secondary to anemia of chronic disease secondary to chronic kidney disease . The patient's hemoglobin dropped to 6.9 today and will receive 1 unit of PRBCs with dialysis. Eduardo e discussed with Dr. Magana. 4.Aortic stenosis, stable. 5.Hypertensive heart disease. 6.Large left pleural effusion, improved. Chest x-ray shows worsening opacities. Clinically, the pa tient looks significantly better. We will continue dialysis. 7.Elevated troponin due to acute congestive heart failure exacerbation and renal disease, likely due to demand mismatch. 8.Accelerated hypertension. Blood pressure medications have been adjusted. We will continue IV p.r .n. 9.Deep venous thrombosis prophylaxis, the patient is on heparin. Plan: Discharge once outpatient dialysis has been set up. /WILLA Voice ID: [id number] Report ID: [id number]
--- NOTE | 2019-01-08 20:48 | P.PN ---
Date of Service: 01/08/19 Vital Signs Temp Pulse Resp BP Pulse Ox 97.2 F 54 16 179/82 H 99 01/08/19 16:00 01/08/19 16:00 01/08/19 16:00 01/08/19 16:00 01/08/19 16:00 Medications Acetaminophen (Tylenol -Extra Strength) 500 mg PO Q4HP PRN PRN Reason: Pain scale 2-4 (Mild) Stop: 02/02/19 19:47 Last Admin: 01/04/19 22:50 Dose: 500 mg Calcitriol (Rocaltrol) 0.5 mcg PO DAILY [facility] Stop: 02/03/19 09:01 Last Admin: 01/08/19 10:50 Dose: 0.5 mcg Cholecalciferol (Vitamin D 5,000 Iu Cap) 5,000 unit PO DAILY [facility] Stop: 02/03/19 09:01 Last Admin: 01/08/19 10:51 Dose: 5,000 unit Docusate Sodium (Colace Cap) 100 mg PO DAILY PRN PRN Reason: CONSTIPATION Stop: 02/03/19 21:07 Last Admin: 01/04/19 21:34 Dose: 100 mg Doxazosin Mesylate (Cardura) 2 mg PO BEDTIME [facility] Stop: 02/05/19 21:01 Last Admin: 01/07/19 21:22 Dose: 2 mg Epoetin Iglesia (Procrit) 10,000 unit IV EVERY HD [facility] Stop: 02/03/19 21:01 Last Admin: 01/06/19 12:36 Dose: 10,000 unit Furosemide (Lasix) 40 mg IV BIDL [facility] Stop: 02/03/19 09:01 Last Admin: 01/08/19 16:56 Dose: Not Given Heparin Sodium (Porcine) (Heparin 1,000 Units/Ml) 6,000 unit IJ EVERY HD PRN PRN Reason: FLUSH AFTER EACH USE Stop: 02/03/19 20:51 Last Admin: 01/06/19 12:35 Dose: 6,000 unit Hydralazine HCl (Apresoline) 10 mg IV Q6HP PRN PRN Reason: Titrate to SBP (MUST DEFINE) Stop: 02/03/19 01:31 Last Admin: 01/06/19 18:25 Dose: 10 mg Hydralazine HCl (Apresoline) 75 mg PO TID [facility] Stop: 02/03/19 09:01 Last Admin: 01/08/19 14:00 Dose: Not Given Albumin Human (Albumin 25%) 50 mls @ 100 mls/hr IV EVERY HD [facility] Stop: 02/03/19 21:01 Insulin Human Regular (Novolin -R) 0 unit SQ ACHS [facility]; Protocol Stop: 02/02/19 21:01 Last Admin: 01/08/19 16:30 Dose: Not Given Mannitol (Mannitol 12.5 Gm/50 Ml Vial) 12.5 gm IV EVERY HD PRN PRN Reason: Titrate to SBP (MUST DEFINE) Stop: 02/03/19 20:51 Metoprolol Tartrate (Lopressor) 25 mg PO BID [facility] Stop: 02/02/19 21:01 Last Admin: 01/08/19 10:50 Dose: 25 mg Ondansetron HCl (Zofran) 4 mg IV Q4H PRN PRN Reason: NAUSEA / VOMITING Stop: 02/02/19 19:47 Ramipril (Altace) 2.5 mg PO BEDTIME [facility] Stop: 02/05/19 21:01 Last Admin: 01/07/19 21:21 Dose: 2.5 mg Sodium Chloride (Normal Saline Flush) 10 ml IV BID [facility] Stop: 02/02/19 21:01 Last Admin: 01/08/19 10:51 Dose: 10 ml Assessment/ Plan: Nephrology. Doing well. CPS stable without CP or SOB. No acute events overnight. Vitals, medications, blood work and imaging reviewed in the chart. General: In no apparent distress, Oriented x3, Cooperative HEENT: Atraumatic Neck: Supple Respiratory: Clear to auscultation bilaterally Cardiovascular: Regular rate/rhythm, Edema Gastrointestinal: Normal bowel sounds, Soft and benign, Non-distended Integumentary: No rashes, No cyanosis Neurological: Normal speech Laboratory Data (last 24 hrs) 01/03/19 16:14: WBC 13.0 H, Hgb 8.6 L, Hct 27.0 L, Plt Count 351 Imagings Data: EXAM DESCRIPTION: [place] Single View01/03/2019 4:27 pm CLINICAL HISTORY: Chest pain COMPARISON: December 13, 2018 FINDINGS: [id number] bilateral pulmonary opacities. The heart is normal size. Small pleural effusions are present IMPRESSION: Ytct-xu-[id number] bilateral pulmonary opacities probably represent pulmonary edema. Echocardiogram: LEFT VENTRICULAR WALL MOTION: NORMAL. DOPPLER/COLOR FLOW: MILD MITRAL REGURGITATION AND TRICUSPID REGURGITATION. ESTIMATED RIGHT VENTRICULAR SYSTOLIC PRESSURE 55 MMHG (MODERATE PULMONARY HYPERTENSION). MILD AORTIC STENOSIS. PEAK/MEAN GRADIENT 28/14 ESTIMATION AORTIC VALVE AREA 1.5 CM SQUARED. COMMENTS: NORMAL LEFT VENTRICULAR EJECTION FRACTION. DILATED LEFT ATRIUM. MITRAL ANNULAR CALCIFICATION. MILD AORTIC STENOSIS. MILD MITRAL REGURGITATION AND TRICUSPID REGURGITATION. LARGE LEFT PLEURAL EFFUSION NOTED. MODERATE PULMONARY HYPERTENSION ESTIMATED RIGHT SYSTOLIC PRESSURE 55 MMHG. Conclusions/Impression: A/ ESRD. First HD 01-05-19. CKD V with proteinuria. Diastolic CHF, A/C. Pulmonary HTN. Left Pleural Effusion. HTN with CKD/ CHF. DM II with CKD. Anemia in CKD. OSWALDO/ Secondary HyperPTH. P/ Continue current POC and Medications. HD today as ordered. Give 1 Unit PRBC with HD today. Hepatitis panel pending. Renal diet. No NSAIDs. AM labs. Daily weight. Dialysis placement pending hepatitis panel. Case discussed with Dr. Cloud.
[2019-01-08] MEDS: RAMIPRIL 2.5 MG CAP PO SCH (21:15)
[2019-01-08] MEDS: DOXAZOSIN 2 MG TAB PO SCH (21:15)
[2019-01-09 03:05] LABS: HBsAG Nonreactive (Nonreactive)
[2019-01-09 05:16] LABS: Absolute Lymphocytes (CBC) 0.6 K/uL (0.7-4.9); Absolute Monocytes 0.8 K/uL (0.1-1.3); Absolute Neutrophil 5.1 K/uL (1.8-8.0); Basophils % 0.5 % (0-1.3); Eosinophils % 7.3 % (0-4.4); Hematocrit 26.9 % (36.0-45.0); Lymphocytes % 8.9 % (15.3-44.8); MPV 8.3 fL (7.6-11.3)
[2019-01-09 05:51] LABS: Albumin 2.4 g/dL (3.4-5.0); Bilirubin Total 0.5 mg/dL (0.2-1.0); Potassium 3.5 mmol/L (3.5-5.1); Protein, Total 5.6 g/dL (6.4-8.2)
[2019-01-09] MEDS: INSULIN -REGULAR HUMAN 50 UNIT/0.5 ML ML SQ SCH ×4 (07:30→21:00)
[2019-01-09] MEDS: VITAMIN D 5,000 UNIT CAP PO SCH (08:50)
[2019-01-09] MEDS: METOPROLOL TAR 50 MG TAB PO SCH ×2 (08:50→21:05)
[2019-01-09] MEDS: HYDRALAZINE HCL 25 MG TABLET PO SCH ×3 (08:50→21:05)
[2019-01-09] MEDS: CALCITROL 0.25 MCG CAP PO SCH (08:51)
[2019-01-09] MEDS: FUROSEMIDE 40 MG/4 ML VIAL IV SCH ×2 (08:52→17:07)
--- NOTE | 2019-01-09 17:09 | P.PN ---
Subjective Date of Service: 01/09/19 Chief Complaint: Dyspnea Subjective: No new changes, No C/O voiced, Improving Patient seen and examined at bedside. No family at bedside. Chart reviewed and case discussed with nursing staff. Review of Systems 10-point ROS is otherwise unremarkable Physical Examination - Vital Signs Temperature: 98.4 F Blood Pressure: 146/65 Pulse: 60 Respirations: 18 Pulse Ox (%): 91 - Physical Exam General: Alert, In no apparent distress, Oriented x3 HEENT: Atraumatic, PERRLA, EOMI Neck: Supple, JVD not distended Respiratory: Clear to auscultation bilaterally, Normal air movement Cardiovascular: Regular rate/rhythm, Normal S1 S2 Gastrointestinal: Normal bowel sounds, No tenderness Musculoskeletal: No tenderness Integumentary: No rashes Neurological: Normal speech, Normal tone, Normal affect Lymphatics: No axilla or inguinal lymphadenopathy Assessment And Plan - Plan A 68-year-old female with: 1. New onset congestive heart failure, diastolic dysfunction, improved with diuretics, now off of oxygen. Edema resolved. EF is 52%. Continue monitoring I ' and O's, daily weights. Continue free fluid restriction. 2. Acute on chronic kidney injury stage 5. The patient has been started on dialysis this hospital stay, tolerating it well. Patient is pending outpatient chair time set up. 3. Acute on chronic anemia secondary to anemia of chronic disease secondary to chronic kidney disease. The patient's hemoglobin remaines stable after trasnfusion of 1 unit of PRBCs with dialysis. 4. Aortic stenosis, stable. 5. Hypertensive heart disease. 6. Large left pleural effusion, improved. Chest x-ray shows worsening opacities. Clinically, the patient looks significantly better. We will continue dialysis. 7. Elevated troponin due to acute congestive heart failure exacerbation and renal disease, likely due to demand mismatch. 8. Accelerated hypertension. Blood pressure medications have been adjusted. We will continue IV p.r.n. 9. Deep venous thrombosis prophylaxis, the patient is on heparin. Plan: Discharge once outpatient dialysis has been set up.
[2019-01-09] MEDS: DOXAZOSIN 2 MG TAB PO SCH (21:04)
[2019-01-09] MEDS: RAMIPRIL 2.5 MG CAP PO SCH (21:05)
--- NOTE | 2019-01-09 21:05 | P.PN ---
Date of Service: 01/09/19 Vital Signs Temp Pulse Resp BP Pulse Ox 98.4 F 60 18 146/65 H 91 01/09/19 17:09 01/09/19 17:09 01/09/19 17:09 01/09/19 17:09 01/09/19 17:09 Medications Acetaminophen (Tylenol -Extra Strength) 500 mg PO Q4HP PRN PRN Reason: Pain scale 2-4 (Mild) Stop: 02/02/19 19:47 Last Admin: 01/04/19 22:50 Dose: 500 mg Calcitriol (Rocaltrol) 0.5 mcg PO DAILY [facility] Stop: 02/03/19 09:01 Last Admin: 01/09/19 08:51 Dose: 0.5 mcg Cholecalciferol (Vitamin D 5,000 Iu Cap) 5,000 unit PO DAILY [facility] Stop: 02/03/19 09:01 Last Admin: 01/09/19 08:50 Dose: 5,000 unit Docusate Sodium (Colace Cap) 100 mg PO DAILY PRN PRN Reason: CONSTIPATION Stop: 02/03/19 21:07 Last Admin: 01/04/19 21:34 Dose: 100 mg Doxazosin Mesylate (Cardura) 2 mg PO BEDTIME [facility] Stop: 02/05/19 21:01 Last Admin: 01/08/19 21:15 Dose: 2 mg Epoetin Iglesia (Procrit) 10,000 unit IV EVERY HD [facility] Stop: 02/03/19 21:01 Last Admin: 01/06/19 12:36 Dose: 10,000 unit Furosemide (Lasix) 40 mg IV BIDL [facility] Stop: 02/03/19 09:01 Last Admin: 01/09/19 17:07 Dose: 40 mg Heparin Sodium (Porcine) (Heparin 1,000 Units/Ml) 6,000 unit IJ EVERY HD PRN PRN Reason: FLUSH AFTER EACH USE Stop: 02/03/19 20:51 Last Admin: 01/06/19 12:35 Dose: 6,000 unit Hydralazine HCl (Apresoline) 10 mg IV Q6HP PRN PRN Reason: Titrate to SBP (MUST DEFINE) Stop: 02/03/19 01:31 Last Admin: 01/06/19 18:25 Dose: 10 mg Hydralazine HCl (Apresoline) 75 mg PO TID [facility] Stop: 02/03/19 09:01 Last Admin: 01/09/19 13:45 Dose: 75 mg Albumin Human (Albumin 25%) 50 mls @ 100 mls/hr IV EVERY HD [facility] Stop: 02/03/19 21:01 Insulin Human Regular (Novolin -R) 0 unit SQ ACHS [facility]; Protocol Stop: 02/02/19 21:01 Last Admin: 01/09/19 16:30 Dose: Not Given Mannitol (Mannitol 12.5 Gm/50 Ml Vial) 12.5 gm IV EVERY HD PRN PRN Reason: Titrate to SBP (MUST DEFINE) Stop: 02/03/19 20:51 Metoprolol Tartrate (Lopressor) 25 mg PO BID [facility] Stop: 02/02/19 21:01 Last Admin: 01/09/19 08:50 Dose: 25 mg Ondansetron HCl (Zofran) 4 mg IV Q4H PRN PRN Reason: NAUSEA / VOMITING Stop: 02/02/19 19:47 Ramipril (Altace) 2.5 mg PO BEDTIME [facility] Stop: 02/05/19 21:01 Last Admin: 01/08/19 21:15 Dose: 2.5 mg Sodium Chloride (Normal Saline Flush) 10 ml IV BID [facility] Stop: 02/02/19 21:01 Last Admin: 01/09/19 08:56 Dose: 10 ml Assessment/ Plan: Nephrology. Doing well. CPS stable without CP or SOB. No acute events overnight. Vitals, medications, blood work and imaging reviewed in the chart. General: In no apparent distress, Oriented x3, Cooperative HEENT: Atraumatic Neck: Supple Respiratory: Clear to auscultation bilaterally Cardiovascular: Regular rate/rhythm, Edema Gastrointestinal: Normal bowel sounds, Soft and benign, Non-distended Integumentary: No rashes, No cyanosis Neurological: Normal speech Laboratory Data (last 24 hrs) 01/03/19 16:14: WBC 13.0 H, Hgb 8.6 L, Hct 27.0 L, Plt Count 351 Imagings Data: EXAM DESCRIPTION: [place] Single View01/03/2019 4:27 pm CLINICAL HISTORY: Chest pain COMPARISON: December 13, 2018 FINDINGS: [id number] bilateral pulmonary opacities. The heart is normal size. Small pleural effusions are present IMPRESSION: [id number] bilateral pulmonary opacities probably represent pulmonary edema. Echocardiogram: LEFT VENTRICULAR WALL MOTION: NORMAL. DOPPLER/COLOR FLOW: MILD MITRAL REGURGITATION AND TRICUSPID REGURGITATION. ESTIMATED RIGHT VENTRICULAR SYSTOLIC PRESSURE 55 MMHG (MODERATE PULMONARY HYPERTENSION). MILD AORTIC STENOSIS. PEAK/MEAN GRADIENT 28/14 ESTIMATION AORTIC VALVE AREA 1.5 CM SQUARED. COMMENTS: NORMAL LEFT VENTRICULAR EJECTION FRACTION. DILATED LEFT ATRIUM. MITRAL ANNULAR CALCIFICATION. MILD AORTIC STENOSIS. MILD MITRAL REGURGITATION AND TRICUSPID REGURGITATION. LARGE LEFT PLEURAL EFFUSION NOTED. MODERATE PULMONARY HYPERTENSION ESTIMATED RIGHT SYSTOLIC PRESSURE 55 MMHG. Conclusions/Impression: A/ ESRD. First HD 01-05-19. CKD V with proteinuria. Diastolic CHF, A/C. Pulmonary HTN. Left Pleural Effusion. HTN with CKD/ CHF. DM II with CKD. Anemia in CKD. OSWALDO/ Secondary HyperPTH. P/ Continue current POC and Medications. HD tomorrow. Renal diet. No NSAIDs. AM labs. Daily weight. Possible discharge tomorrow with start at dialysis unit on .
[2019-01-10 06:09] LABS: Absolute Lymphocytes (CBC) 0.8 K/uL (0.7-4.9); Absolute Monocytes 0.9 K/uL (0.1-1.3); Absolute Neutrophil 5.1 K/uL (1.8-8.0); Basophils % 0.6 % (0-1.3); Eosinophils % 6.4 % (0-4.4); Hematocrit 27.1 % (36.0-45.0); MPV 8.1 fL (7.6-11.3); Monocytes % 11.9 % (3.3-12.3); RBC Red Blood Cell Count 2.99 M/uL (3.86-4.86)
[2019-01-10 06:17] LABS: Albumin 2.5 g/dL (3.4-5.0); Bilirubin Total 0.3 mg/dL (0.2-1.0); Potassium 4.2 mmol/L (3.5-5.1); Protein, Total 5.7 g/dL (6.4-8.2)
[2019-01-10] MEDS: INSULIN -REGULAR HUMAN 50 UNIT/0.5 ML ML SQ SCH ×2 (07:30→11:30)
[2019-01-10] MEDS: FUROSEMIDE 40 MG/4 ML VIAL IV SCH (08:54)
[2019-01-10] MEDS: METOPROLOL TAR 50 MG TAB PO SCH (08:55)
[2019-01-10] MEDS: VITAMIN D 5,000 UNIT CAP PO SCH (08:55)
[2019-01-10] MEDS: HYDRALAZINE HCL 25 MG TABLET PO SCH ×2 (08:56→13:50)
[2019-01-10] MEDS: CALCITROL 0.25 MCG CAP PO SCH (08:56)
[2019-01-10 09:47] VITALS: O2SAT 91
--- NOTE | 2019-01-10 12:04 | P.DS ---
Admission Date: 01/03/19 Discharge Date: 01/10/19 Disposition: ROUTINE DISCHARGE Discharge Condition: GOOD Reason for Admission: Dyspnea Consultations: Cardiology Nephrology General surgery Procedures: 01/05/2019: Right IJ Tessio catheter placement with Dr. Gómez Brief History of Present Illness: The patient is a 68-year-old female with past medical history of insulin- dependent diabetes, chronic kidney disease stage 4 to 5 as well as hypertension , who was in her usual state of health until day of admission when the patient had sudden onset of shortness of breath. Shortness of breath was moderate, rapidly progressive and worsening. The patient denies any cough, fever. No chills. No associated chest pain. No nausea or vomiting. The patient states that she was at rest while the shortness of breath occurred. Her symptoms are constant. The patient also reports some concurrent peripheral edema. The patient denies any changes in her medications recently. She does have chronic kidney disease, but is not on dialysis at this time. The patient therefore came into the ER for further evaluation. Upon arrival, her vital signs showed elevated blood pressure of 160/116. She was tachycardic. O2 was 91% on room air. Her workup revealed elevated white blood cell count 13,000. She was anemic at 8.6, however, she states that she has been anemic in the past and recently had blood transfusion. Creatinine was 6.67, which is above her baseline of about 4. BNP was 88,000. D-dimer was also elevated at 1600. Her chest x-ray showed pulmonary edema. The patient was then referred for admission. When seen in the ER, she was awake, alert, oriented x3, in some mild distress. The patient was given Lasix in the ER and labetalol to bring down her blood pressure. Hospital Course: Patient was admitted for shortness of breath that was progressively worsening. She was found to have acute new onset congestive heart failure. She was started on IV diuretics. Her daily weights, input and output were monitored. Cardiology was consulted and an Echocardiography was done, which showed a dilated heart along with moderate pulmonary hypertension with a preserved ejection fraction of 52%. She was also found to have acute on chronic kidney injury, stage IV. Nephrology was consulted. General surgery was also consulted as patient needed to be initiated on dialysis this hospitalization. A right IJ Tessio catheter was placed by Dr. Gómez. Patient was initiated on dialysis during this hospitalization. She seemed to have tolerated dialysis well. Social work was consulted to help set up outpatient chair time for this patient. Initially, she was found to have elevated blood pressure in the 200s. She was started on medications, her blood pressure stabilized. She was also anemic with hemoglobin of 8.6 on admission. She was given 1 unit PRBC throughout the stay. Her hemoglobin has remained stable for the rest of the hospitalization. She also had an elevated D-dimer as, likely secondary to her congestive heart failure. An echo was done to rule out right ventricular strain as we could not give her IV contrast secondary to her kidney disease. Her troponin was also elevated, again likely secondary to her acute congestive heart failure exacerbation. She otherwise remained stable throughout the stay. Prior to discharge, she was alert oriented x3, in no acute distress and hemodynamically stable. She has been tolerating her dialysis sessions well. She will have dialysis on Tuesday, , Tuesday. Her chair time is 10:00 a.m. Her treatment plan/diagnoses have been explained to her. All questions were answered and patient verbalized understanding. She was discharged home in a safe and stable manner. She was instructed to follow up with her primary care physician in 2-3 days. She was also recommended to follow up with her shot blaster in 2 weeks. Her outpatient dialysis chair time and information was provided to her. Vital Signs/Physical Exam: Temp Pulse Resp BP Pulse Ox 98.4 F 63 18 172/76 H 93 01/10/19 08:00 01/10/19 08:55 01/10/19 08:00 01/10/19 08:55 01/10/19 08:00 General: Alert, In no apparent distress, Oriented x3 HEENT: Atraumatic, PERRLA, EOMI Neck: Supple, JVD not distended Respiratory: Clear to auscultation bilaterally, Normal air movement Cardiovascular: Regular rate/rhythm, Normal S1 S2 Gastrointestinal: Normal bowel sounds, No tenderness Musculoskeletal: No tenderness Integumentary: No rashes Neurological: Normal speech, Normal tone, Normal affect Lymphatics: No axilla or inguinal lymphadenopathy Laboratory Data at Discharge: WBC 7.2 K/uL (4.3-10.9) 01/10/19 05:38 Hgb 9.1 g/dL (12.0-15.0) L 01/10/19 05:38 Hct 27.1 % (36.0-45.0) L 01/10/19 05:38 Plt Count 233 K/uL (152-406) 01/10/19 05:38 PT 12.0 SECONDS (9.5-12.5) 01/03/19 16:14 INR 1.02 01/03/19 16:14 Sodium 141 mmol/L (136-145) 01/10/19 05:38 Potassium 4.2 mmol/L (3.5-5.1) 01/10/19 05:38 BUN 27 mg/dL (7-18) H 01/10/19 05:38 Creatinine 4.49 mg/dL (0.55-1.3) H D 01/10/19 05:38 Glucose 88 mg/dL (74-106) 01/10/19 05:38 Uric Acid 7.2 mg/dL (2.6-6.0) H 01/04/19 05:26 Phosphorus 5.2 mg/dL (2.5-4.9) H 01/04/19 05:26 Magnesium 2.7 mg/dL (1.8-2.4) H 01/03/19 16:14 Total Bilirubin 0.3 mg/dL (0.2-1.0) 01/10/19 05:38 AST 11 U/L (15-37) L 01/10/19 05:38 ALT 9 U/L (12-78) L 01/10/19 05:38 Alkaline Phosphatase 62 U/L (45-117) 01/10/19 05:38 Home Medications: Furosemide 80 mg PO BID PRN 01/03/19 Hydralazine [Apresoline*] 75 mg PO TID 01/03/19 Doxazosin [Cardura*] 2 mg PO BEDTIME #30 tab 01/10/19 Metoprolol Tartrate [Lopressor*] 25 mg PO BID #30 tab 01/10/19 Ramipril [Altace*] 2.5 mg PO BEDTIME #30 cap 01/10/19 New Medications: Doxazosin [Cardura*] 2 mg PO BEDTIME #30 tab Metoprolol Tartrate [Lopressor*] 25 mg PO BID #30 tab Ramipril [Altace*] 2.5 mg PO BEDTIME #30 cap Patient Discharge Instructions: Please follow up with the primary care physician in 2-3 days. Please follow up with nephrology in 2 weeks. Please make sure to keep your scheduled outpatient dialysis chair time appointments. Please return to the emergency room for worsening symptoms Diet: Renal Activity: Ad kim Followup: Nick Magana DO [ACTIVE - CAN ADMIT] - 1-2 Weeks Reid Vera MD [Primary Care Provider] - 2-3 Days Time spent managing pt's care (in minutes): 55
[2019-01-10 13:18] VITALS: BP 155/70; TEMP 98
[2019-01-10] MEDS: EPOETIN ALFA 10,000 UNIT/ML VIAL IV SCH (13:18)
== END 2019-01-10 16:38 | disposition home health service (06) | DRG 291 ==
LOC: ER 15:56 → ERHOLD 18:14 → 2ND 19:51
PROVIDERS: ADMIT Family Medicine; ATTEND Family Medicine
PROC: 02HV33Z Insertion of Infusion Device into Superior Vena Cava, Percutaneous Approach (ICD-10-PCS; 2019-01-05)
PROC: B5181ZA Fluoroscopy of Superior Vena Cava using Low Osmolar Contrast, Guidance (ICD-10-PCS; 2019-01-05)
PROC: 5A1D70Z Performance of Urinary Filtration, Intermittent, Less than 6 Hours Per Day (ICD-10-PCS; 2019-01-05)
PROC: 0JH63XZ Insertion of Tunneled Vascular Access Device into Chest Subcutaneous Tissue and Fascia, Percutaneous Approach (ICD-10-PCS; principal; 2019-01-05 11:15)
PROC: 30243N1 Transfusion of Nonautologous Red Blood Cells into Central Vein, Percutaneous Approach (ICD-10-PCS; 2019-01-08)
DX: I13.2 Hypertensive heart and chronic kidney disease with heart failure and with stage 5 chronic kidney disease, or end stage renal disease (principal); I50.33 Acute on chronic diastolic (congestive) heart failure; N18.6 End stage renal disease; N17.9 Acute kidney failure, unspecified; E11.22 Type 2 diabetes mellitus with diabetic chronic kidney disease; E11.65 Type 2 diabetes mellitus with hyperglycemia; I27.20 Pulmonary hypertension, unspecified; I35.0 Nonrheumatic aortic (valve) stenosis; D63.1 Anemia in chronic kidney disease; Z86.718 Personal history of other venous thrombosis and embolism; Z88.5 Allergy status to narcotic agent
CPT/HCPCS: 36415; 71045; 76000; 80048; 80053; 80076; 81001; 82274; 82962; 83735; 83880; 84100; 84484; 84550; 85014; 85018; 85025; 85379; 85610; 86317; 86704; 86850; 86900; 86901; 87086; 87088; 87340; 90935; 93005; 93306; 94760; 96374; 96375; 99285; C1752; J0360; J0690; J0885; J1644; J1940; J2250; J2405; J2704; J3010; J7030; P9016; Q4081

== ENCOUNTER 2019-01-16 11:24 | Emergency (ER) | payer OTHER ==
--- OUTSIDE RECORDS SUMMARY | 2019-01-16 11:26 | XMS REPORT | Clinical Summary ---
:1950 Author Organization [facility] Address [address] [place] [address] Care Team Providers Name Role Phone Reid [...] Not on file Results Not on fileafter 01/15/2018 Insurance Payer Benefit Plan / Group Subscriber ID Type Phone Address [employer] ADV xxxxxxxx HMO [employer] Self 1950 [phone] [address] ([address]) [address] [place] [address] Advance Directives Patient has advance care planning documents on file. For more information, please contact:Justice Almendarez[address] [place] [address]
[2019-01-16] MEDS ORDERED: FENTANYL CITR 100 MCG/2 ML ONE ×3 (11:40→14:54)
--- NOTE | 2019-01-16 11:47 | EKG ---
Test Date: 2019-01-16 Test Time: 11:27:59 Photostatic Copy Maker: SHARLA MEASUREMENT RESULTS: Intervals: Rate: 85 CO: 150 QRSD: 82 QT: 390 QTc: 464 [place]: P: 60 CO: 150 QRS: -34 T: 37 INTERPRETIVE STATEMENTS: Sinus rhythm with frequent premature ventricular complexes and premature atrial complexes Left axis deviation Minimal voltage criteria for LVH, may be normal variant Abnormal ECG Compared to ECG 01/03/2019 16:09:10 Ventricular premature complex(es) now present Left-axis deviation now present Left ventricular hypertrophy now present Sinus tachycardia no longer present Electronically Signed On 01-16-19 11:46:46 CDT by Jonathan Choudhury
--- NOTE | 2019-01-16 11:51 | RAD REPORT ---
EXAM DESCRIPTION: [place] Single View01/16/2019 11:43 am CLINICAL HISTORY: Chest pain COMPARISON: January 08, 2019 FINDINGS: Endotracheal tube has its tip 4.5 centimeters above the marina. Nasogastric tube is present within stomach. Mild to moderate bilateral pulmonary opacities probably represent pulmonary edema. Heart is mildly enlarged. Small pleural effusions suspected. Central venous catheter remains in place
[2019-01-16] MEDS ORDERED: FENTANYL CIT IV ONE (12:00)
[2019-01-16] MEDS ORDERED: NA CHLORIDE 0.9% IV ONE (12:00)
[2019-01-16] MEDS ORDERED: PROPOFOL 1,000 MG/100 ML VIAL IV ONE ×2 (12:15→15:20)
--- NOTE | 2019-01-16 12:19 | RAD REPORT ---
EXAM DESCRIPTION: CT - Head Brain Wo Cont - 01/16/2019 11:57 am CLINICAL HISTORY: Transient alteration of awareness, dilated left pupil COMPARISON: CT head December 13 TECHNIQUE: Axial 5 mm thick images of the head were obtained without IV contrast. All CT scans are performed using dose optimization technique as appropriate and may include automated exposure control or mA/KV adjustment according to patient size. FINDINGS: No intracranial hemorrhage is present. No focal mass lesion, significant edema or shift of midline structures. No cortical edema or sulcal effacement. Intracranial findings are similar to the December 13 study. Atrophy and chronic ischemic changes are present with ventricles in proportion to th is volume loss. An acute cortical based infarction is not localized. No abnormal extra-axial fluid co llections. Mastoid air cells and visualized portions of the paranasal sinuses are clear. No acute bony findings. NG tube and endotracheal tube are in place. IMPRESSION: Atrophy and chronic ischemic changes are present similar to December 13 imaging. No hemorrhage, mass or diffuse cerebral edema.
[2019-01-16 12:38] LABS: Urine Blood 1+ (NEG); Urine Glucose 1+ (NEG); Urine Protein 3+ (NEG)
[2019-01-16 12:54] LABS: Albumin 3.1 g/dL (3.4-5.0); Bilirubin Total 0.5 mg/dL (0.2-1.0); Magnesium 2.1 mg/dL (1.8-2.4); Protein, Total 6.6 g/dL (6.4-8.2); Troponin (Emerg Dept Use Only) 0.11 ng/mL (0.0-0.045)
[2019-01-16 13:11] LABS: Absolute Lymphocytes (CBC) 0.3 K/uL (0.7-4.9); Absolute Monocytes 0.3 K/uL (0.1-1.3); Absolute Neutrophil 7.6 K/uL (1.8-8.0); Basophils % 0.4 % (0-1.3); Eosinophils % 1.9 % (0-4.4); Lymphocytes % 3.4 % (15.3-44.8); MPV 8.6 fL (7.6-11.3); Monocytes % 3.7 % (3.3-12.3); Protime INR 1.23; RBC Red Blood Cell Count 2.37 M/uL (3.86-4.86)
--- NOTE | 2019-01-16 13:42 | ER ---
Nurse's Notes [facility] Name: Rhoda Lu Age: 68 yrs Sex: Female : 1950 Arrival Date: 01/16/2019 Time: 11:36 Bed 3 Private MD: Diagnosis: Cardiac Arrest;Pulmonary Edema Presentation: 01/16 11:20 Presenting complaint: EMS states: called out by dialysis center for hypotension and sv unresponsive, upon EMS arrival manual CPR was being done by staff started at 1037, Epinephrine x 1 given \T\1046, Sodium bicarbonate x 1 given \T\1050, ROSC achieved at 1050. Pt intubated on the field with 7.5 tube, 26 \T\ teeth, Ketamine 100 mg IVP, Fentanyl 100 mcg IVP given. SBP 110s, HR-60s, BS-147, NGT right nare 18F done by EMS. Staff stated this was pt's 2nd time to receive dialysis. Care prior to arrival: Oral intubation, CPR manually performed by HD staff IV initiated. 20 GA, in the left forearm, Glucose check: 147 Oxygen administered. ventilator. Compressions began prior to arrival. 11:20 Method Of Arrival: EMS: [facility] sv 11:20 Acuity: JANAE 1 sv 11:20 Transition of care: dialysis. Onset of symptoms was January 16, 2019. Risk Assessment: Do sv you want to hurt yourself or someone else? Unable to obtain. Initial Sepsis Screen: Does the patient meet any 2 criteria? Temp <36.0*C (96.8*F)) or > 38.3*C (100.9*F). No. Patient's initial sepsis screen is negative. Does the patient have a suspected source of infection? No. Patient's initial sepsis screen is negative. 11:35 Acuity: JANAE 1 ss Historical: - Allergies: 12:00 Codeine; sv 12:00 Demerol; sv 12:00 Morphine; sv 12:00 TETRACYCLINES; sv - PMHx: 12:00 Diabetes - IDDM; DVT; Hypertension; Renal Disease; Chronic anemia; CHF; sv - PSHx: 12:00 Appendectomy; sv - Immunization history:: Adult Immunizations unknown. - Social history:: Smoking status: unknown. - Ebola Screening: : Unable to complete screening because. Screenin:31 Abuse screen: Denies threats or abuse. Denies injuries from another. Nutritional sv screening: No deficits noted. Tuberculosis screening: No symptoms or risk factors identified. 12:34 Fall Risk No fall in past 12 months (0 pts). Secondary diagnosis (15 points) impaired sv mobility, IV access (20 points). Ambulatory Aid- None/Bed Rest/Nurse Assist (0 pts). Gait- Impaired (20 pts.). Mental Status- Overestimates/Forgets Limitations (15 pts.). Total Martin Fall Scale indicates High Risk Score (45 or more points). Fall prevention measures have been instituted. Side Rails Up X 2 Placed Close to Nursing Station Frequent Obs/Assessments Occuring Family Present and informed to notify staff if the need to leave the bedside As available patient and family educated on Fall Prevention Program and Strategies. Assessment: 11:20 CPR assessment: unresponsive, no respiratory effort, intubated, left pupil dilated. sv Cardiac rhythm is SR. General: Appears slender, Behavior is unresponsive. Neuro: Level of Consciousness is unresponsive, intubated. Cardiovascular: Heart tones S1 S2 present. Respiratory: Airway via oral intubation. Respiratory: Breath sounds are clear bilaterally. Derm: Skin is normal. 12:35 Reassessment: Dr Gilmore at the bedside speaking with the family. sv 12:35 Reassessment: Family states that her left eye is always like the way it looks, pt has sv cataracts. 13:24 Reassessment: Patient appears in no apparent distress at this time. Patient and/or sv family updated on plan of care and expected duration. Pain level reassessed. Pt remains intubated and sedated. Family at the bedside and provided with refreshments. 13:36 Reassessment: Pt starting to move in the bed, moving head side to side. See eMAR for sv propofol changes. 14:40 Reassessment: Report given to Hardeep from EMS. sv 14:51 Reassessment: Patient appears in no apparent distress at this time. Patient and/or sv family updated on plan of care and expected duration. Pain level reassessed. Pt remains intubated. Vital Signs: 11:23 Pulse 69; Pulse Ox 100% on 100% FiO2 ETT vent; sv 11:27 BP 223 / 95; Pulse 84; Resp 20; Pulse Ox 100% on 100% FiO2 ETT vent; sv 12:18 Weight 70 kg; sv 12:20 BP 189 / 80; Pulse 63; Resp 16; Temp 94.2; Pulse Ox 100% on 100% FiO2 ETT vent; sv 12:30 BP 149 / 69; Pulse 55 MON; Resp 14; Temp 94.3(C); Pulse Ox 100% on 100% FiO2 ETT vent; sv 12:40 BP 158 / 73; Pulse 56; Resp 14; Pulse Ox 100% on 100% FiO2 ETT vent; sv 13:00 BP 194 / 81; Pulse 63; Resp 15; Temp 94.5(C); Pulse Ox 100% on 100% FiO2 ETT vent; sv 13:15 BP 189 / 92; Pulse 85; Resp 14; Temp 94.7(C); Pulse Ox 100% on 100% FiO2 ETT vent; sv 13:30 BP 207 / 92; Pulse 72; Resp 14; Pulse Ox 100% on 100% FiO2 ETT vent; sv 13:45 BP 198 / 93; Pulse 62; Resp 14; Temp 95.6(C); Pulse Ox 100% on 100% FiO2 ETT vent; sv 12:30 Sinus bradycardia sv ED Course: 11:20 Maintain EMS IV. Dressing intact. Site clean \T\ dry. Gauge \T\ site: 20G L FA. sv 11:20 athletic monitor on. Pulse ox on. NIBP on. sv 11:25 Initial lab(s) drawn, by ED staff, sent to lab. Inserted saline lock: 20 gauge in right sv forearm, using aseptic technique. ,using aseptic technique. done by Martha QUINONES Blood collected. 11:27 EKG done, by veterinary technician instructor. reviewed by David Gilmore MD. at1 11:35 Jarrell cath inserted, using sterile technique, 16 Fr., by commercial lines account manager, balloon inflated, to sv gravity drainage, urine specimen collected. other Criticore returned clear yellow urine. 11:36 Patient arrived in ED. bd 11:37 David Gilmore MD is Attending Physician. ps1 11:43 CXR XRAY In Process Unspecified. EDMS 11:45 Patient has correct armband on for positive identification. Bed in low position. Call sv light in reach. Side rails up X2. 11:48 Indy Loja RN is Primary Nurse. sv 11:50 Triage completed. ss 11:57 CT Head Brain wo Cont In Process Unspecified. EDMS 12:20 Bare hugger placed on pt. sv 12:32 Arm band placed on. sv 14:50 No provider procedures requiring assistance completed. Patient transferred, IV remains sv in place. intact. Restraints: 12:15 Non-Violent Restraint: Order obtained. Initiated on January 16, 2019 at 12:15 Unable to sv provide Restraint education. Pt intubated and not alert. Actions/Behavior observed: Confused/disoriented, has difficulty remembering/follow instructions, has impaired decision making, has decreased level of consciousness, unable to follow instructions, Less restrictive alternatives attempted: decrease environmental stimuli, placed near Nurse station, reoriented to location, medications evaluated, medicated for pain/anxiety, repositioned, lines/tubes covered, eliminated unnecessary lines/tubes, verbal de-escalation performed, Alternative interventions: Ineffective. Clinical justification for use: airway protection, line protection, patient safety, Mental status: confused, Cognition: Unable to assess. poor judgement, poor safety awareness, impulsive, poor attention/concentration, unable to follow commands, short term memory loss, Circulation: Within defined parameters (based on Cardiovascular assessment) Skin integrity: Within defined parameters (based on Integumentary assessment) Signs of injury related to restraint: No injuries noted. Range of Motion (ROM): performed. Elimination/Hygiene: with urinary catheter, Restraint status: Side rails up x 4 Started. Soft wrist restraint (Right) Started. Soft wrist restraint (Left) Started. Criteria to discontinue Restraint not met. Restraint continued. 14:15 Non-Violent Restraint: Actions/Behavior observed: Confused/disoriented, has difficulty sv remembering/follow instructions, has impaired decision making, has decreased level of consciousness, unable to follow instructions, Less restrictive alternatives attempted: decrease environmental stimuli, placed near Nurse station, reoriented to location, medications evaluated, medicated for pain/anxiety, repositioned, lines/tubes covered, eliminated unnecessary lines/tubes, verbal de-escalation performed, Alternative interventions: Ineffective. Clinical justification for use: airway protection, line protection, patient safety, Mental status: confused, Cognition: Unable to assess. poor judgement, poor safety awareness, impulsive, poor attention/concentration, unable to follow commands, short term memory loss, Circulation: Within defined parameters (based on Cardiovascular assessment) Skin integrity: Within defined parameters (based on Integumentary assessment) Signs of injury related to restraint: No injuries noted. Range of Motion (ROM): performed. Elimination/Hygiene: with urinary catheter, Restraint status: Side rails up x 4 Continued. Soft wrist restraint (Right) Continued. Soft wrist restraint (Left) Continued. Criteria to discontinue Restraint not met. Restraint continued. Administered Medications: 11:30 Drug: fentaNYL (PF) 100 mcg Route: IVP; Site: right forearm; sv 11:38 Follow up: Response: No adverse reaction; No change in condition sv 11:38 Drug: fentaNYL (PF) 100 mcg Route: IVP; Site: right forearm; sv 12:00 Follow up: Response: No adverse reaction; Marked relief of symptoms sv 12:10 Drug: Propofol 5 mcg/kg/min Route: IV; Rate: calculated rate; Site: right forearm; sv 12:38 Follow up: Rate change 5 mcg/kg/min sv 13:00 Follow up: Rate change 8 mcg/kg/min sv 13:23 Follow up: Rate change 9 mcg/kg/min sv 13:39 Follow up: Rate change 13 mcg/kg/min sv 14:50 Follow up: Response: No adverse reaction; IV Status: Infusion continued upon transfer sv 12:24 Drug: fentaNYL (PF) 1 mcg/kg/h Route: IV; Rate: calculated rate; Site: right forearm; sv 14:49 Follow up: Response: No adverse reaction; IV Status: Completed infusion; IV Intake: 50mlsv 14:45 Drug: fentaNYL (PF) 100 mcg Route: IVP; Site: left forearm; sv 14:50 Follow up: Response: No adverse reaction; Medication administered at discharge. sv Intake: 14:49 IV: 50ml; Total: 50ml. sv Output: 11:40 Urine: 100ml (Jarrell); Total: 100ml. sv Outcome: 13:41 ER care complete, transfer ordered by MD. ps1 14:10 Transferred by ground EMS to [facility], Transfer form completed. sv X-rays sent w/ patient. Note: Report given to Joanie QUINONES at [facility]. 14:10 critical 14:10 Instructed on the need for transfer. 15:09 Patient left the ED. sv Signatures: Dispatcher [employer] EDMS Brenda Bradshaw Indy Loja RN RN Palak Hearn RN RN America Rose, oven press tender EKG Tat1 David Gilmore MD MD ps1
--- NOTE | 2019-01-16 13:42 | EDPHYS ---
Physician Documentation [facility] Name: Rhoda Lu Age: 68 yrs Sex: Female : 1950 Arrival Date: 01/16/2019 Time: 11:36 Bed 3 Private MD: ED Physician David Gilmore HPI: 01/16 12:40 This 68 yrs old Black Female presents to ER via EMS with complaints of CPR - with ROSC. ps1 12:40 Patient was at dialysis and went unresponsive. Staff started CPR. EMS arrived within 10 ps1 minutes and got ROSC and administered 1mg of epinephrine. Intubated and NG tube placed RN PEDIATRIC. BP now elevated. 220 systolic. Appears to be making purposeful movements. Recently admitted and has extensive medical history of CKD, CHF, anemia, IDDM. BS > 140. 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 . Historical: - Allergies: 12:00 Codeine; sv 12:00 Demerol; sv 12:00 Morphine; sv 12:00 TETRACYCLINES; sv - PMHx: 12:00 Diabetes - IDDM; DVT; Hypertension; Renal Disease; Chronic anemia; CHF; sv - PSHx: 12:00 Appendectomy; sv - Immunization history:: Adult Immunizations unknown. - Social history:: Smoking status: unknown. - Ebola Screening: : Unable to complete screening because. ROS: 12:40 Unable to obtain ROS due to comatose state, patient is on ventilator. ps1 Exam: 12:40 Head/Face: Normocephalic, atraumatic. ps1 12:40 Neck: Trachea midline, no thyromegaly or masses palpated, and no cervical lymphadenopathy. Supple, full range of motion without nuchal rigidity, or vertebral point tenderness. No Meningismus. 12:40 Cardiovascular: Regular rate and rhythm. No gallops, murmurs, or rubs. Normal PMI, no JVD. No pulse deficits. Respiratory: Lungs have equal breath sounds bilaterally, clear to auscultation and percussion. No rales, rhonchi or wheezes noted. No increased work of breathing, no retractions or nasal flaring. Abdomen/GI: Soft, non-tender, with normal bowel sounds. No distension or tympany. No guarding or rebound. No evidence of tenderness throughout. Skin: Warm, dry with normal turgor. Normal color with no rashes, no lesions, and no evidence of cellulitis. MS/ Extremity: Pulses equal, no cyanosis. Neurovascular intact. Full, normal range of motion. 12:40 Constitutional: The patient appears comatose. 12:40 Eyes: Pupils: no acute changes, dilated, in left eye. 12:40 ENT: intubated with ETT 26 at teeth 7.5 cm. NG tube in place. . 12:40 Chest/axilla: Inspection: dialysis cath in left chest, Palpation: is normal. 12:40 Neuro: has purposeful movements. corneal reflex intact. moving all extremities. . Vital Signs: 11:23 Pulse 69; Pulse Ox 100% on 100% FiO2 ETT vent; sv 11:27 BP 223 / 95; Pulse 84; Resp 20; Pulse Ox 100% on 100% FiO2 ETT vent; sv 12:18 Weight 70 kg; sv 12:20 BP 189 / 80; Pulse 63; Resp 16; Temp 94.2; Pulse Ox 100% on 100% FiO2 ETT vent; sv 12:30 BP 149 / 69; Pulse 55 MON; Resp 14; Temp 94.3(C); Pulse Ox 100% on 100% FiO2 ETT vent; sv 12:40 BP 158 / 73; Pulse 56; Resp 14; Pulse Ox 100% on 100% FiO2 ETT vent; sv 13:00 BP 194 / 81; Pulse 63; Resp 15; Temp 94.5(C); Pulse Ox 100% on 100% FiO2 ETT vent; sv 13:15 BP 189 / 92; Pulse 85; Resp 14; Temp 94.7(C); Pulse Ox 100% on 100% FiO2 ETT vent; sv 13:30 BP 207 / 92; Pulse 72; Resp 14; Pulse Ox 100% on 100% FiO2 ETT vent; sv 13:45 BP 198 / 93; Pulse 62; Resp 14; Temp 95.6(C); Pulse Ox 100% on 100% FiO2 ETT vent; sv 12:30 Sinus bradycardia sv MDM: 12:10 Patient medically screened. ps1 12:40 Data reviewed: vital signs, nurses notes. Counseling: I had a detailed discussion with ps1 the patient and/or guardian regarding: the historical points, exam findings, and any diagnostic results supporting the discharge/admit diagnosis, the presence of at least one elevated blood pressure reading (>120/80) during this emergency department visit, lab results, radiology results, the need to transfer to another facility, for higher level of care, no ICU beds in hospital.. ED course: ordered post intubation sedation with fentanyl and propofol for BP control and analgesia. Pt stable on vent. Discussed with family members course and plan. . 01/16 11:39 Order name: CBC with Diff; Complete Time: 13:53 ps1 01/16 11:39 Order name: Magnesium; Complete Time: 13:03 ps1 01/16 11:39 Order name: NT PRO-BNP; Complete Time: 13:03 ps1 01/16 11:39 Order name: PT-INR; Complete Time: 13:53 ps1 01/16 11:39 Order name: Troponin (emerg Dept Use Only); Complete Time: 13: ps1 01/16 11:39 Order name: CMP; Complete Time: 13:03 ps1 01/16 11:37 Order name: CXR XRAY; Complete Time: 12:10 bd 01/16 11:39 Order name: Lactate; Complete Time: 12:54 ps1 01/16 11:39 Order name: Procalcitonin; Complete Time: 13:53 ps1 01/16 11:39 Order name: Blood Culture Adult (2) ps1 01/16 11:39 Order name: CT Head Brain wo Cont; Complete Time: 12:21 ps1 01/16 11:49 Order name: Urine Dipstick--Ancillary (enter results); Complete Time: 12:54 bd 01/16 13:21 Order name: CBC Smear Scan; Complete Time: 13:53 EDMS 01/16 11:39 Order name: EKG; Complete Time: 11:40 ps1 01/16 11:39 Order name: Cardiac monitoring; Complete Time: 12:18 ps1 01/16 11:39 Order name: EKG - Nurse/Tech; Complete Time: 12:18 ps1 01/16 11:39 Order name: IV Saline Lock; Complete Time: 12:18 ps1 01/16 11:39 Order name: Labs collected and sent; Complete Time: 12:18 ps1 01/16 11:39 Order name: O2 Per Protocol; Complete Time: 12:19 ps1 01/16 11:39 Order name: O2 Sat Monitoring; Complete Time: 12:19 ps1 01/16 11:39 Order name: Urine Dipstick-Ancillary (obtain specimen); Complete Time: 12:18 ps1 01/16 13:25 Order name: Restraint:Non-Violent; Complete Time: 13:26 sv Administered Medications: 11:30 Drug: fentaNYL (PF) 100 mcg Route: IVP; Site: right forearm; sv 11:38 Follow up: Response: No adverse reaction; No change in condition sv 11:38 Drug: fentaNYL (PF) 100 mcg Route: IVP; Site: right forearm; sv 12:00 Follow up: Response: No adverse reaction; Marked relief of symptoms sv 12:10 Drug: Propofol 5 mcg/kg/min Route: IV; Rate: calculated rate; Site: right forearm; sv 12:38 Follow up: Rate change 5 mcg/kg/min sv 13:00 Follow up: Rate change 8 mcg/kg/min sv 13:23 Follow up: Rate change 9 mcg/kg/min sv 13:39 Follow up: Rate change 13 mcg/kg/min sv 14:50 Follow up: Response: No adverse reaction; IV Status: Infusion continued upon transfer sv 12:24 Drug: fentaNYL (PF) 1 mcg/kg/h Route: IV; Rate: calculated rate; Site: right forearm; sv 14:49 Follow up: Response: No adverse reaction; IV Status: Completed infusion; IV Intake: 50mlsv 14:45 Drug: fentaNYL (PF) 100 mcg Route: IVP; Site: left forearm; sv 14:50 Follow up: Response: No adverse reaction; Medication administered at discharge. sv Disposition: 01/16/19 13:41 Transfer ordered to [facility]. Diagnosis are Cardiac Arrest, Pulmonary Edema. - Reason for transfer: Higher level of care. - Accepting physician is Omranian. - Condition is Critical. - Problem is new. - Symptoms have improved. Signatures: Dispatcher [employer] Indy Pan RN RN sv Singer, Phillip, MD MD ps1 Corrections: (The following items were deleted from the chart) 15:09 13:41 01/16/2019 13:41 Transfer ordered to [facility]. Diagnosis is sv Cardiac Arrest; Pulmonary Edema. Reason for transfer: Higher level of care. Accepting physician is Omranian. Condition is Critical. Problem is new. Symptoms have improved. ps1
[2019-01-16 13:44] LABS: Blood Morphology Comment NOTED (NOT SEEN); Burr Cells 1+; Platelet Estimate DECR; Urine White Blood Cell Casts OK
[2019-01-16 21:39] VITALS: O2SAT 100
[2019-01-16 21:50] VITALS: BP 198/93; TEMP 95.6
== END 2019-01-16 15:09 | disposition short-term general hospital (02) ==
LOC: ER 11:24
DX: I46.9 Cardiac arrest, cause unspecified (principal); J81.1 Chronic pulmonary edema; I12.0 Hypertensive chronic kidney disease with stage 5 chronic kidney disease or end stage renal disease; E11.22 Type 2 diabetes mellitus with diabetic chronic kidney disease; N18.6 End stage renal disease; I50.9 Heart failure, unspecified; Z99.2 Dependence on renal dialysis; Z86.718 Personal history of other venous thrombosis and embolism; Z88.1 Allergy status to other antibiotic agents; Z88.5 Allergy status to narcotic agent
CPT/HCPCS: 93005; 87040 ×2; 85025; 36415; 83735; 87205; 85610; 83605; 81003; 84484; 80053; 84145; 83880; 70450; 71045; 94002; J2704 ×2; J3010 ×4

== ENCOUNTER 2019-07-13 17:53 | Emergency (ER) | payer OTHER ==
[2019-07-13] MEDS ORDERED: cloNIDine HCl 0.1 MG TAB ONE (18:16)
--- NOTE | 2019-07-13 18:46 | RAD REPORT ---
EXAM DESCRIPTION: CT - Head Brain Wo Cont - 07/13/2019 6:37 pm CLINICAL HISTORY: hypertension Headache, drowsiness, hypertension COMPARISON: <Comparisons> TECHNIQUE: All CT scans are performed using dose optimization technique as appropriate and may inclu de automated exposure control or mA/KV adjustment according to patient size. FINDINGS: No intracranial hemorrhage, hydrocephalus or extra-axial fluid collection.No areas of brai n edema or evidence of midline shift. The paranasal sinuses and mastoids are clear. The calvarium is intact. IMPRESSION: No acute intracranial abnormality.
[2019-07-13 19:02] LABS: Absolute Lymphocytes (CBC) 0.6 K/uL (0.7-4.9); Basophils % 0.3 % (0-1.3); Hematocrit 38.4 % (36.0-45.0); Lymphocytes % 8.8 % (15.3-44.8); MPV 8.2 fL (7.6-11.3); Protime INR 1.04; RBC Red Blood Cell Count 3.97 M/uL (3.86-4.86)
[2019-07-13 19:19] LABS: Albumin 2.9 g/dL (3.4-5.0); Bilirubin Direct 0.1 mg/dL (0-0.2); Bilirubin Total 0.3 mg/dL (0.2-1.0); Magnesium 2.2 mg/dL (1.8-2.4); Potassium 3.7 mmol/L (3.5-5.1); Protein, Total 7.2 g/dL (6.4-8.2)
--- NOTE | 2019-07-13 21:03 | EDPHYS ---
Physician Documentation [facility] Name: Rhoda Lu Age: 69 yrs Sex: Female : 1950 Arrival Date: 07/13/2019 Time: 18:01 Bed 25 Private MD: ED Physician Ricky Garcia HPI: 07/13 18:30 This 69 yrs old Black Female presents to ER via EMS with complaints of High Blood cp Pressure. 18:30 The patient has elevated blood pressure and discovered this at home, with a home cp device. Onset: The symptoms/episode began/occurred today. Associated signs and symptoms: Pertinent negatives: chest pain, dizziness, dyspnea, headache, visual changes, vomiting. Severity of symptoms: At its worst the blood pressure was 220 mm Hg, in the emergency department the blood pressure is improved, mildly, 205 mm Hg. Historical: - Allergies: 18:12 Codeine; tr5 18:12 Demerol; tr5 18:12 Morphine; tr5 18:12 TETRACYCLINES; tr5 - Home Meds: 18:12 amlodipine 10 mg tab 1 tab once daily [Active]; carvedilol 25 mg Oral tab 1 tab 2 times tr5 per day [Active]; hydralazine 50 mg Oral tab 1 tab 2 times per day [Active]; Humulin 70/30 Sub-Q twice a day [Active]; furosemide 20 mg Oral tab 1 tab once daily [Active]; tramadol 50 mg Oral tab [Active]; ascorbic acid (vitamin C) 500 mg tab [Active]; Zinc Sulfate Oral [Active]; isosorbide mononitrate 60 mg Oral Tb24 [Active]; nifedipine 90 mg Oral TbER [Active]; lidocaine patch 4% [Active]; aspirin 81 mg Oral chew [Active]; lisinopril 40 mg Oral tab [Active]; hydralazine 50 mg Oral tab [Active]; atorvastatin 40 mg oral tab [Active]; Coreg 25 mg Oral tab [Active]; Zofran (as hydrochloride) 4 mg Oral tab [Active]; tramadol-acetaminophen 37.5-325 mg Oral tab [Active]; clonidine HCl 0.2 mg Oral tab [Active]; lactulose 10 gram/15 mL (15 mL) Oral soln [Active]; cyclobenzaprine 5 mg Oral tab [Active]; famotidine 20 mg Oral tab [Active]; - PMHx: 18:12 CHF; chronic anemia; Diabetes - IDDM; DVT; Hypertension; Renal Disease; tr5 - Immunization history:: Adult Immunizations up to date. - Social history:: Smoking status: unknown Patient/guardian denies using. - Ebola Screening: : No symptoms or risks identified at this time. ROS: 18:35 Constitutional: Negative for body aches, chills, fever, poor PO intake. cp 18:35 Eyes: Negative for injury, pain, redness, and discharge. cp 18:35 ENT: Negative for drainage from ear(s), ear pain, sore throat, difficulty swallowing, cp difficulty handling secretions. 18:35 Cardiovascular: Negative for chest pain, edema. 18:35 Respiratory: Negative for cough, shortness of breath, wheezing. 18:35 Abdomen/GI: Negative for abdominal pain, nausea, vomiting, and diarrhea. 18:35 Skin: Negative for rash. 18:35 Neuro: Negative for altered mental status, dizziness, headache, weakness. 18:35 All other systems are negative. Exam: 18:42 Constitutional: The patient appears in no acute distress, alert, awake, comfortable, cp non-diaphoretic, non-toxic, well developed, well nourished. 18:42 Head/Face: Normocephalic, atraumatic. cp 18:45 Eyes: Periorbital structures: appear normal, Pupils: equal, round, and reactive to cp light and accomodation, Extraocular movements: intact throughout, Conjunctiva: normal, no exudate, no injection, Lids and lashes: appear normal. 18:45 ENT: External ear(s): are unremarkable, Nose: is normal, Mouth: Lips: moist, Oral cp mucosa: moist, Posterior pharynx: is normal, airway is patent, no erythema, no exudate. 18:45 Neck: ROM/movement: is normal, is supple, without pain, no range of motions limitations, no nuchal rigidity. 18:45 Chest/axilla: Inspection: normal, Palpation: is normal, no crepitus, no tenderness. 18:45 Cardiovascular: Rate: normal, Rhythm: regular, Edema: is not appreciated, JVD: is not appreciated. 18:45 Respiratory: the patient does not display signs of respiratory distress, Respirations: normal, no use of accessory muscles, no retractions, no splinting, no tachypnea, labored breathing, is not present, Breath sounds: are clear throughout, no decreased breath sounds, no stridor, no wheezing. 18:45 Abdomen/GI: Inspection: abdomen appears normal, Palpation: abdomen is soft and non-tender, in all quadrants. 18:45 Neuro: Orientation: to person, place \T\ time. Mentation: is normal. 19:55 ECG was reviewed by the Attending Physician. Vital Signs: 18:12 BP 205 / 93; Pulse 69; Resp 16; Temp 98.4(O); Pulse Ox 99% on R/A; tr5 19:00 BP 191 / 76; Pulse 62; Resp 17; Pulse Ox 100% on R/A; tr5 20:11 BP 173 / 70; Pulse 56; Resp 14; Pulse Ox 99% on R/A; aa1 MDM: 18:12 Patient medically screened. cp 18:45 Differential diagnosis: hypertensive crisis, Malignant HTN, intracerebral hemorrhage. 21:00 Data reviewed: vital signs, nurses notes, lab test result(s), EKG, radiologic studies, cp CT scan, I have discussed the patient's presentation/case with the attending Emergency Department Physician; and as a result, I will discharge patient. 21:00 Test interpretation: by ED physician or midlevel provider: ECG. Counseling: I had a cp detailed discussion with the patient and/or guardian regarding: the historical points, exam findings, and any diagnostic results supporting the discharge/admit diagnosis, the presence of at least one elevated blood pressure reading (>120/80) during this emergency department visit, lab results, radiology results, the need for outpatient follow up, for definitive care, an catheterization laboratory technician. Response to treatment: the patient's symptoms have markedly improved after treatment, and as a result, I will discharge patient. 07/13 18:27 Order name: Basic Metabolic Panel; Complete Time: 19:25 cp 07/13 19:25 Interpretation: Normal except: GLUC 174; BUN 61; CRE 3.78; GFR 14. 07/13 18:27 Order name: CBC with Diff; Complete Time: 19:25 cp 07/13 19:25 Interpretation: Normal except: MCV 96.6; RDW 17.5; GALLO% 77.7; LYM% 8.8; LYMA 0.6. cp 07/13 18:08 Order name: CT Head Brain wo Cont; Complete Time: 20:24 07/13 20:25 Interpretation: Report reviewed. 07/13 18:27 Order name: LFT's; Complete Time: 19:25 07/13 19:25 Interpretation: Normal except: AST 14; ALB 2.9; GLOB 4.3; A/G 0.7. 07/13 18:27 Order name: Magnesium; Complete Time: 19:25 07/13 18:27 Order name: PT-INR; Complete Time: 19:25 07/13 18:08 Order name: EKG; Complete Time: 18:09 07/13 18:08 Order name: EKG - Nurse/Tech; Complete Time: 19:53 07/13 18:27 Order name: Cardiac monitoring; Complete Time: 18:41 07/13 18:27 Order name: IV Saline Lock; Complete Time: 18:53 07/13 18:27 Order name: Labs collected and sent; Complete Time: 18:53 07/13 18:27 Order name: O2 Per Protocol; Complete Time: 18:41 07/13 18:27 Order name: O2 Sat Monitoring; Complete Time: 18:41 cp EC:55 Rate is 58 beats/min. Rhythm is regular. OH interval is normal. QRS interval is normal. cp QT interval is normal. T waves are Inverted in lead aVR. Interpreted by me. Reviewed by me. Administered Medications: 18:20 Drug: cloNIDine 0.2 mg Route: PO; tr5 Disposition: 07/13/19 21:02 Discharged to Home. Impression: Hypertensive heart and chronic kidney disease. - Condition is Stable. - Discharge Instructions: Hypertension, How to Take Your Blood Pressure, [id number], Managing Your Hypertension, Form - Blood Pressure Record Sheet. - Medication Reconciliation Form, Thank You Letter, Antibiotic Education, Prescription Opioid Use, SBAR form form. - Follow up: Private Physician; When: 2 - 3 days; Reason: Recheck today's complaints. - Problem is new. - Symptoms have improved. Addendum: 07/15/2019 13:17 Co-signature as Attending Physician, Ricky Garcia MD I agree with the assessment and c garrett plan of care. Signatures: Dispatcher [employer] Ricky Brar MD MD cha Page, Corey, CLARK PA Remberto Montero, RN RN tr5 Corrections: (The following items were deleted from the chart) 07/13 23:05 21:02 07/13/2019 21:02 Discharged to Home. Impression: Hypertensive heart and chronic tr5 kidney disease. Condition is Stable. Forms are Medication Reconciliation Form, Thank You Letter, Antibiotic Education, Prescription Opioid Use. Follow up: Private Physician; When: 2 - 3 days; Reason: Recheck today's complaints. Problem is new. Symptoms have improved. cp
--- NOTE | 2019-07-13 21:03 | ER ---
Nurse's Notes [facility] Name: Rhoda Lu Age: 69 yrs Sex: Female : 1950 Arrival Date: 07/13/2019 Time: 18:01 Bed 25 Private MD: Diagnosis: Hypertensive heart and chronic kidney disease Presentation: 07/13 18:05 Presenting complaint: EMS states: Pt just got home from the medical [place] at [place] [id number] yesterday where she was doing physical therapy. Her home health nurse noted that her blood pressure was quite elevated today despite taking all of her blood pressure medications. in route her BP was in the 220's. Pt denies any symptoms. Transition of care: patient was not received from another setting of care. Onset of symptoms was July 13, 2019. Risk Assessment: Do you want to hurt yourself or someone else? Patient reports no desire to harm self or others. Initial Sepsis Screen: Does the patient meet any 2 criteria? No. Patient's initial sepsis screen is negative. Does the patient have a suspected source of infection? No. Patient's initial sepsis screen is negative. Care prior to arrival: None. 18:05 Method Of Arrival: EMS: [facility] tr5 18:05 Acuity: JANAE 3 tr5 Historical: - Allergies: 18:12 Codeine; tr5 18:12 Demerol; tr5 18:12 Morphine; tr5 18:12 TETRACYCLINES; tr5 - Home Meds: 18:12 amlodipine 10 mg tab 1 tab once daily [Active]; carvedilol 25 mg Oral tab 1 tab 2 times tr5 per day [Active]; hydralazine 50 mg Oral tab 1 tab 2 times per day [Active]; Humulin 70/30 Sub-Q twice a day [Active]; furosemide 20 mg Oral tab 1 tab once daily [Active]; tramadol 50 mg Oral tab [Active]; ascorbic acid (vitamin C) 500 mg tab [Active]; Zinc Sulfate Oral [Active]; isosorbide mononitrate 60 mg Oral Tb24 [Active]; nifedipine 90 mg Oral TbER [Active]; lidocaine patch 4% [Active]; aspirin 81 mg Oral chew [Active]; lisinopril 40 mg Oral tab [Active]; hydralazine 50 mg Oral tab [Active]; atorvastatin 40 mg oral tab [Active]; Coreg 25 mg Oral tab [Active]; Zofran (as hydrochloride) 4 mg Oral tab [Active]; tramadol-acetaminophen 37.5-325 mg Oral tab [Active]; clonidine HCl 0.2 mg Oral tab [Active]; lactulose 10 gram/15 mL (15 mL) Oral soln [Active]; cyclobenzaprine 5 mg Oral tab [Active]; famotidine 20 mg Oral tab [Active]; - PMHx: 18:12 CHF; chronic anemia; Diabetes - IDDM; DVT; Hypertension; Renal Disease; tr5 - Immunization history:: Adult Immunizations up to date. - Social history:: Smoking status: unknown Patient/guardian denies using. - Ebola Screening: : No symptoms or risks identified at this time. Screenin:20 Abuse screen: Denies threats or abuse. Nutritional screening: No deficits noted. tr5 Tuberculosis screening: No symptoms or risk factors identified. Fall Risk None identified. Assessment: 18:20 General: Appears in no apparent distress. Behavior is calm, cooperative, appropriate tr5 for age. Pain: Denies pain. Neuro: Level of Consciousness is awake, alert, obeys commands, Oriented to person, place, time, Veneer Manufacturer are equal bilaterally Moves all extremities. Cardiovascular: Heart tones present. Respiratory: Airway is patent Respiratory effort is even, unlabored, Respiratory pattern is regular, symmetrical. GI: No signs and/or symptoms were reported involving the gastrointestinal system. : No signs and/or symptoms were reported regarding the genitourinary system. EENT: No signs and/or symptoms were reported regarding the EENT system. Derm: No signs and/or symptoms reported regarding the dermatologic system. Musculoskeletal: No signs and/or symptoms reported regarding the musculoskeletal system. 20:00 Reassessment: Patient appears in no apparent distress at this time. Patient and/or tr5 family updated on plan of care and expected duration. Pain level reassessed. Patient is alert, oriented x 3, equal unlabored respirations, skin warm/dry/pink. Vital Signs: 18:12 BP 205 / 93; Pulse 69; Resp 16; Temp 98.4(O); Pulse Ox 99% on R/A; tr5 19:00 BP 191 / 76; Pulse 62; Resp 17; Pulse Ox 100% on R/A; tr5 20:11 BP 173 / 70; Pulse 56; Resp 14; Pulse Ox 99% on R/A; aa1 ED Course: 18:01 Patient arrived in ED. tr5 18:07 Ricky Ford PA is PHCP. cp 18:07 Ricky Garcia MD is Attending Physician. cp 18:07 Triage completed. tr5 18:12 Arm band placed on Patient placed. tr5 18:14 Remberto Mcmillan, RN is Primary Nurse. tr5 18:20 Assisted with bedpan. tr5 18:20 Bed in low position. Call light in reach. Side rails up X 1. Adult w/ patient. Cardiac tr5 monitor on. Pulse ox on. NIBP on. 18:38 CT Head Brain wo Cont In Process Unspecified. EDMS 18:45 Initial lab(s) drawn, by me, sent to lab. Inserted saline lock: 22 gauge in right tr5 forearm, using aseptic technique. 20:13 EKG done, by ED staff, reviewed by Ricky RODAS. jp3 21:15 Awaiting transportation. tr5 21:17 No provider procedures requiring assistance completed. IV discontinued. tr5 Administered Medications: 18:20 Drug: cloNIDine 0.2 mg Route: PO; tr5 Outcome: 21:02 Discharge ordered by . cp 21:17 Discharged to home via ambulance. tr5 21:17 Condition: stable 21:17 Discharge instructions given to patient, family, Instructed on discharge instructions, follow up and referral plans. Demonstrated understanding of instructions, follow-up care. 23:05 Patient left the ED. tr5 Signatures: Dispatcher [employer] EDMS Yvette Leal RN RN aa1 Ricky Ford PA PA Олег Cherry jp3 Remberto Mcmillan, JONI RN tr5
[2019-07-13 23:39] VITALS: TEMP 98.4
[2019-07-13 23:42] VITALS: BP 173/70; O2SAT 99
--- NOTE | 2019-07-15 12:48 | EKG ---
Test Date: 2019-07-13 Test Time: 19:49:37 Hosting Engineer: SHY MEASUREMENT RESULTS: Intervals: Rate: 58 CA: 174 QRSD: 92 QT: 436 QTc: 428 [place]: P: 82 CA: 174 QRS: -34 T: 45 INTERPRETIVE STATEMENTS: Sinus bradycardia Possible Left atrial enlargement Left axis deviation Incomplete right bundle branch block Abnormal ECG Compared to ECG 01/16/2019 11:27:59 Incomplete right bundle-branch block now present Sinus rhythm no longer present Atrial premature complex(es) no longer present Ventricular premature complex(es) no longer present Left ventricular hypertrophy no longer present Electronically Signed On 07-15-19 12:45:28 [employer]ICE PRESIDENT OF [employer]ER [employer] by Jonathan Choudhury
--- OUTSIDE RECORDS SUMMARY | 2019-07-16 05:59 | XMS REPORT ---
:1950 [facility] Address [address] [place] [address] Care Team Providers Name Role Phone LOBO HENNESSY Unavailable Unavailable ALTAGRACIA BARAJAS Unavailable Unavailable Problems This patient has no known problems. Allergies, Adverse Reactions, Alerts This patient has no known allergies or adverse reactions. Medications This patient has no known medications. Encounters Start End Encounter Admission Attending Care Care Encounter Date/Time Date/Time Type Type Clinicians Facility Department ID 2019-05-29 2019-05-[address] [facility] 7501 16:31:00 16:31:00 2019-05-11 2019-05-11 Outpatient [facility] 7500 06:00:00 06:00:00 Results Test Description Test Time Test Comments Text Results Atomic Results Result Comments AFB CULTURE + SMEAR 2019-04-16 13:51:00 Test Item Value Reference Range Comments CULTURE (BEAKER) (test preh=6093) No acid-fast bacilli isolated in 42 days AFB SMEAR (BEAKER) (test xjue=467) No acid fast bacilli seen FUNGUS CULTURE + [id number] 09:38:00 Test Item Value Reference Range Comments CULTURE (BEAKER) (test No fungus isolated in 28 days ptmu=9331) FUNGUS SMEAR (BEAKER) (test No fungi seen tnci=6557) SURGICALLY OBTAINED CULTURE + GRAM [id number] 10:25:00 Test Item Value Reference Range Comments CULTURE (BEAKER) (test ESCHERICHIA COLI 1+ Escherichia coli tfou=5177) Amikacin (test code=1) Ampicillin + Sulbactam (test code=6) Aztreonam (test code=32) Cefepime (test code=51) Cefoxitin (test code=68) Ceftazidime (test code=27) Ceftriaxone (test code=52) Ertapenem (test code=38) Gentamicin (test code=18) Levofloxacin (test code=22) Meropenem (test code=34) Nitrofurantoin (test code=23) Piperacillin + Tazobactam (test code=29) Tetracycline (test code=2) Tobramycin (test code=25) Trimethoprim + Sulfamethoxazole (test code=47) CULTURE (BEAKER) (test ENTEROBACTER CLOACAE <1+ Enterobacter hqaf=3933) COMPLEX cloacae complexAmpC Positive Amikacin (test code=1) Aztreonam (test code=32) Cefepime (test code=51) Cefoxitin (test code=68) Ceftazidime (test code=27) Ceftriaxone (test code=52) Gentamicin (test code=18) Levofloxacin (test code=22) Meropenem (test code=34) Nitrofurantoin (test code=23) Piperacillin + Tazobactam (test code=29) Tetracycline (test code=2) Tobramycin (test code=25) Trimethoprim + Sulfamethoxazole (test code=47) CULTURE (BEAKER) (test 4+ Enterococcus czvm=4271) species GRAM STAIN RESULT (BEAKER) <1+ WBCs (test annr=0760) GRAM STAIN RESULT (BEAKER) No organisms seen (test pdyw=031298) ANAEROBIC [id number] 02:58:00 Test Item Value Reference Range Comments CULTURE (BEAKER) (test xhrc=2011) No anaerobes isolated HEMOGLOBIN AND [id number] 10:32:00 Test Item Value Reference Range Comments HEMOGLOBIN (BEAKER) (test lqao=504) 7.6 GM/DL 11.2-15.7 HEMATOCRIT (BEAKER) (test ojpf=283) 24.9 % 34.1-44.9 BASIC METABOLIC [id number] 06:01:00 Test Item Value Reference Range Comments SODIUM (BEAKER) (test 139 meq/L 136-145 uhob=371) POTASSIUM (BEAKER) (test 4.9 meq/L 3.5-5.1 pcga=445) CHLORIDE (BEAKER) (test 106 meq/L 98-107 yzuy=207) CO2 (BEAKER) (test 29 meq/L 22-29 piem=184) BLOOD UREA NITROGEN 22 mg/dL 7-21 (BEAKER) (test fqxp=398) CREATININE (BEAKER) (test 2.59 mg/dL 0.57-1.25 vdvd=613) GLUCOSE RANDOM (BEAKER) 94 mg/dL 70-105 (test xmfl=219) CALCIUM (BEAKER) (test 8.8 mg/dL 8.4-10.2 exli=529) EGFR (BEAKER) (test 22 mL/min/1.73 sq m ESTIMATED GFR IS NOT opyp=4200) ACCURATE CREATININE CLEARANCE IN PREDICTING GLOMERULAR FILTRATION RATE. ESTIMATED GFR IS NOT APPLICABLE FOR DIALYSIS PATIENTS. RAD, PELVIS, 1 OR 2 [id number] 11:58:00Reason for exam:->follow up for pelvis ORIFFINAL REPORT CLINICAL HISTORY: follow up for pelvis ORIF TECHNIQUE: AP pelvisCOMPARISON: Abdominal CT 02/10/2019 IMPRESSION: Left pelvic sidewall plate and screw fixation is againseen. An acute fracture line is not definitively seen, although generalized osteopenia and overlyingbowel gas may obscure subtle fractures. Soft tissue fullness along the left pelvic sidewall is compatible with a hematoma seen on the CT. There is a pelvic surgical drain in place. Signed: Carlee Lindo MDReport Verified Date/ Time: 03/01/2019 11:58:06 Reading Location: [facility] ReadingRoom 11 :58 AMSPIN/CONCENTRATION [id number] 11:09:00 Test Item Value Reference Range Comments CONCENTRATION CHARGED (BEAKER) (test kbib=8947) Done BASIC METABOLIC [id number] 07:44:00 Test Item Value Reference Range Comments SODIUM (BEAKER) (test 136 meq/L 136-145 werc=341) POTASSIUM (BEAKER) (test 4.5 meq/L 3.5-5.1 enge=019) CHLORIDE (BEAKER) (test 106 meq/L 98-107 ohnd=533) CO2 (BEAKER) (test 24 meq/L 22-29 vkzj=666) BLOOD UREA NITROGEN 30 mg/dL 7-21 (BEAKER) (test ykme=307) CREATININE (BEAKER) (test 3.13 mg/dL 0.57-1.25 czfe=052) GLUCOSE RANDOM (BEAKER) 81 mg/dL 70-105 (test rqel=430) CALCIUM (BEAKER) (test 8.7 mg/dL 8.4-10.2 xeke=048) EGFR (BEAKER) (test 18 mL/min/1.73 sq m ESTIMATED GFR IS NOT lscj=0579) ACCURATE CREATININE CLEARANCE IN PREDICTING GLOMERULAR FILTRATION RATE. ESTIMATED GFR IS NOT APPLICABLE FOR DIALYSIS PATIENTS. HEPATITIS B SURFACE [id number] 07:29:00 Test Item Value Reference Range Comments HEPATITIS B SURFACE ANTIGEN (2) (BEAKER) (test Nonreactive Nonreactive wmaq=0240) CBC W/PLT COUNT & AUTO [id number] 07:03:00 Test Item Value Reference Range Comments WHITE BLOOD CELL COUNT (BEAKER) (test xvhc=902) 7.4 K/ L 3.5-10.5 RED BLOOD CELL COUNT (BEAKER) (test cbaa=844) 2.74 M/ L 3.93-5.22 HEMOGLOBIN (BEAKER) (test xhct=595) 8.4 GM/DL 11.2-15.7 HEMATOCRIT (BEAKER) (test rvno=644) 27.0 % 34.1-44.9 MEAN CORPUSCULAR VOLUME (BEAKER) (test qcmi=497) 98.5 fL 79.4-94.8 MEAN CORPUSCULAR HEMOGLOBIN (BEAKER) (test 30.7 pg 25.6-32.2 cktb=721) MEAN CORPUSCULAR HEMOGLOBIN CONC (BEAKER) (test 31.1 GM/DL 32.2-35.5 aeah=068) RED CELL DISTRIBUTION WIDTH (BEAKER) (test 16.6 % 11.7-14.4 pwkb=817) PLATELET COUNT (BEAKER) (test qnek=420) 214 K/CU MM 150-450 MEAN PLATELET VOLUME (BEAKER) (test soxo=523) 10.7 fL 9.4-12.3 NUCLEATED RED BLOOD CELLS (BEAKER) (test 0 /100 WBC 0-0 hblv=142) NEUTROPHILS RELATIVE PERCENT (BEAKER) (test 75 % qgnx=339) LYMPHOCYTES RELATIVE PERCENT (BEAKER) (test 11 % pqkt=355) MONOCYTES RELATIVE PERCENT (BEAKER) (test 9 % ioir=331) EOSINOPHILS RELATIVE PERCENT (BEAKER) (test 5 % fpfn=243) BASOPHILS RELATIVE PERCENT (BEAKER) (test 1 % jfsy=897) NEUTROPHILS ABSOLUTE COUNT (BEAKER) (test 5.56 K/ L 1.56-6.13 hmsu=334) LYMPHOCYTES ABSOLUTE COUNT (BEAKER) (test 0.83 K/ L 1.18-3.74 nebn=681) MONOCYTES ABSOLUTE COUNT (BEAKER) (test 0.63 K/ L 0.24-0.36 uuua=000) EOSINOPHILS ABSOLUTE COUNT (BEAKER) (test 0.35 K/ L 0.04-0.36 xjbh=941) BASOPHILS ABSOLUTE COUNT (BEAKER) (test 0.04 K/ L 0.01-0.08 qgfj=216) IMMATURE GRANULOCYTES-RELATIVE PERCENT (BEAKER) 0 % 0-1 (test lzjn=5675) BASIC METABOLIC [id number] 05:20:00 Test Item Value Reference Range Comments SODIUM (BEAKER) (test 138 meq/L 136-145 hhhu=851) POTASSIUM (BEAKER) (test 3.9 meq/L 3.5-5.1 vagb=949) CHLORIDE (BEAKER) (test 107 meq/L 98-107 zivo=561) CO2 (BEAKER) (test 27 meq/L 22-29 ccwr=689) BLOOD UREA NITROGEN 26 mg/dL 7-21 (BEAKER) (test dzvi=377) CREATININE (BEAKER) (test 2.26 mg/dL 0.57-1.25 tkcv=401) GLUCOSE RANDOM (BEAKER) 101 mg/dL 70-105 (test acrs=646) CALCIUM (BEAKER) (test 8.4 mg/dL 8.4-10.2 ergd=248) EGFR (BEAKER) (test 26 mL/min/1.73 sq m ESTIMATED GFR IS NOT prhd=6414) ACCURATE CREATININE CLEARANCE IN PREDICTING GLOMERULAR FILTRATION RATE. ESTIMATED GFR IS NOT APPLICABLE FOR DIALYSIS PATIENTS. BASIC METABOLIC [id number] 00:03:00 Test Item Value Reference Range Comments SODIUM (BEAKER) (test 140 meq/L 136-145 ezme=561) POTASSIUM (BEAKER) (test 3.9 meq/L 3.5-5.1 rktx=656) CHLORIDE (BEAKER) (test 106 meq/L 98-107 muex=676) CO2 (BEAKER) (test 28 meq/L 22-29 bmen=671) BLOOD UREA NITROGEN 24 mg/dL 7-21 (BEAKER) (test cjnk=327) CREATININE (BEAKER) (test 2.15 mg/dL 0.57-1.25 tskj=791) GLUCOSE RANDOM (BEAKER) 128 mg/dL 70-105 (test tyys=486) CALCIUM (BEAKER) (test 8.6 mg/dL 8.4-10.2 jnra=962) EGFR (BEAKER) (test 27 mL/min/1.73 sq m ESTIMATED GFR IS NOT jpjr=0418) ACCURATE CREATININE CLEARANCE IN PREDICTING GLOMERULAR FILTRATION RATE. ESTIMATED GFR IS NOT APPLICABLE FOR DIALYSIS PATIENTS. CBC W/PLT COUNT & AUTO [id number] 23:21:00 Test Item Value Reference Range Comments WHITE BLOOD CELL COUNT (BEAKER) (test daoh=907) 7.8 K/ L 3.5-10.5 RED BLOOD CELL COUNT (BEAKER) (test lzgj=677) 3.13 M/ L 3.93-5.22 HEMOGLOBIN (BEAKER) (test qhid=319) 9.6 GM/DL 11.2-15.7 HEMATOCRIT (BEAKER) (test kfei=980) 29.6 % 34.1-44.9 MEAN CORPUSCULAR VOLUME (BEAKER) (test dlxn=216) 94.6 fL 79.4-94.8 MEAN CORPUSCULAR HEMOGLOBIN (BEAKER) (test 30.7 pg 25.6-32.2 yxli=189) MEAN CORPUSCULAR HEMOGLOBIN CONC (BEAKER) (test 32.4 GM/DL 32.2-35.5 yger=935) RED CELL DISTRIBUTION WIDTH (BEAKER) (test 16.7 % 11.7-14.4 cevs=717) PLATELET COUNT (BEAKER) (test deax=186) 194 K/CU MM 150-450 MEAN PLATELET VOLUME (BEAKER) (test hkse=576) 10.3 fL 9.4-12.3 NUCLEATED RED BLOOD CELLS (BEAKER) (test 0 /100 WBC 0-0 rlgg=316) NEUTROPHILS RELATIVE PERCENT (BEAKER) (test 73 % bczt=254) LYMPHOCYTES RELATIVE PERCENT (BEAKER) (test 12 % vwxk=830) MONOCYTES RELATIVE PERCENT (BEAKER) (test 10 % iawy=215) EOSINOPHILS RELATIVE PERCENT (BEAKER) (test 5 % rhnp=361) BASOPHILS RELATIVE PERCENT (BEAKER) (test 0 % tfsa=065) NEUTROPHILS ABSOLUTE COUNT (BEAKER) (test 5.67 K/ L 1.56-6.13 yyjv=646) LYMPHOCYTES ABSOLUTE COUNT (BEAKER) (test 0.91 K/ L 1.18-3.74 ciuh=115) MONOCYTES ABSOLUTE COUNT (BEAKER) (test 0.77 K/ L 0.24-0.36 udst=830) EOSINOPHILS ABSOLUTE COUNT (BEAKER) (test 0.36 K/ L 0.04-0.36 jvuz=028) BASOPHILS ABSOLUTE COUNT (BEAKER) (test 0.03 K/ L 0.01-0.08 vdfa=372) IMMATURE GRANULOCYTES-RELATIVE PERCENT (BEAKER) 1 % 0-1 (test monj=4203) POCT-GLUCOSE [id number] 12:09:00 Test Item Value Reference Range Comments POC-GLUCOSE METER (BEAKER) 91 mg/dL 70-110 TESTED AT [facility] [address] [facility] (test ujkl=3033) [facility] [address] CBC W/PLT COUNT & AUTO [id number] 05:22:00 Test Item Value Reference Range Comments WHITE BLOOD CELL COUNT (BEAKER) (test tqek=361) 9.6 K/ L 3.5-10.5 RED BLOOD CELL COUNT (BEAKER) (test rdxl=993) 2.83 M/ L 3.93-5.22 HEMOGLOBIN (BEAKER) (test kniu=190) 8.5 GM/DL 11.2-15.7 HEMATOCRIT (BEAKER) (test lvcj=395) 26.5 % 34.1-44.9 MEAN CORPUSCULAR VOLUME (BEAKER) (test fmzp=370) 93.6 fL 79.4-94.8 MEAN CORPUSCULAR HEMOGLOBIN (BEAKER) (test 30.0 pg 25.6-32.2 nivb=241) MEAN CORPUSCULAR HEMOGLOBIN CONC (BEAKER) (test 32.1 GM/DL 32.2-35.5 zpsg=459) RED CELL DISTRIBUTION WIDTH (BEAKER) (test 15.3 % 11.7-14.4 nonu=541) PLATELET COUNT (BEAKER) (test pzgc=110) 186 K/CU MM 150-450 MEAN PLATELET VOLUME (BEAKER) (test oihg=521) 9.9 fL 9.4-12.3 NUCLEATED RED BLOOD CELLS (BEAKER) (test 0 /100 WBC 0-0 odly=173) NEUTROPHILS RELATIVE PERCENT (BEAKER) (test 77 % jetc=903) LYMPHOCYTES RELATIVE PERCENT (BEAKER) (test 7 % ufio=239) MONOCYTES RELATIVE PERCENT (BEAKER) (test 9 % jrrc=311) EOSINOPHILS RELATIVE PERCENT (BEAKER) (test 6 % rcas=602) BASOPHILS RELATIVE PERCENT (BEAKER) (test 0 % okvj=074) NEUTROPHILS ABSOLUTE COUNT (BEAKER) (test 7.32 K/ L 1.56-6.13 tebg=197) LYMPHOCYTES ABSOLUTE COUNT (BEAKER) (test 0.69 K/ L 1.18-3.74 vqbo=556) MONOCYTES ABSOLUTE COUNT (BEAKER) (test 0.88 K/ L 0.24-0.36 sfei=251) EOSINOPHILS ABSOLUTE COUNT (BEAKER) (test 0.56 K/ L 0.04-0.36 bwso=808) BASOPHILS ABSOLUTE COUNT (BEAKER) (test 0.03 K/ L 0.01-0.08 leyp=527) IMMATURE GRANULOCYTES-RELATIVE PERCENT (BEAKER) 1 % 0-1 (test gqgk=6687) BASIC METABOLIC [id number] 04:36:00 Test Item Value Reference Range Comments SODIUM (BEAKER) (test 138 meq/L 136-145 uiwh=613) POTASSIUM (BEAKER) (test 4.4 meq/L 3.5-5.1 zrne=675) CHLORIDE (BEAKER) (test 106 meq/L 98-107 ulgg=824) CO2 (BEAKER) (test 25 meq/L 22-29 menq=050) BLOOD UREA NITROGEN 35 mg/dL 7-21 (BEAKER) (test swkl=591) CREATININE (BEAKER) (test 3.09 mg/dL 0.57-1.25 ihqf=685) GLUCOSE RANDOM (BEAKER) 95 mg/dL 70-105 (test ayfj=161) CALCIUM (BEAKER) (test 8.6 mg/dL 8.4-10.2 pzww=915) EGFR (BEAKER) (test 18 mL/min/1.73 sq m ESTIMATED GFR IS NOT mscr=3755) ACCURATE CREATININE CLEARANCE IN PREDICTING GLOMERULAR FILTRATION RATE. ESTIMATED GFR IS NOT APPLICABLE FOR DIALYSIS PATIENTS. [id number] 04:34:00 Test Item Value Reference Range Comments PHOSPHORUS (BEAKER) (test exir=331) 3.0 mg/dL 2.3-4.7 [id number] 04:34:00 Test Item Value Reference Range Comments MAGNESIUM (BEAKER) (test quod=407) 1.7 mg/dL 1.6-2.6 CALCIUM, [id number] 04:33:00 Test Item Value Reference Range Comments CALCIUM IONIZED (BEAKER) (test sdyl=629) 1.03 mmol/L 1.12-1.27 PH, BLOOD (BEAKER) (test totl=7789) 7.51 POCT-GLUCOSE [id number] 21:41:00 Test Item Value Reference Range Comments POC-GLUCOSE METER (BEAKER) 170 mg/dL 70-110 TESTED AT [address] (test pnms=8137) [place] [id number] POCT-GLUCOSE [id number] 18:32:00 Test Item Value Reference Range Comments POC-GLUCOSE METER (BEAKER) 121 mg/dL 70-110 TESTED AT [address] (test joru=5086) [place] [id number] POCT-GLUCOSE [id number] 13:17:00 Test Item Value Reference Range Comments POC-GLUCOSE METER (BEAKER) 138 mg/dL 70-110 TESTED AT [address] (test qkpd=2186) [facility] [address] BASIC METABOLIC [id number] 11:40:00 Test Item Value Reference Range Comments SODIUM (BEAKER) (test 135 meq/L 136-145 mlko=547) POTASSIUM (BEAKER) (test 3.7 meq/L 3.5-5.1 exos=233) CHLORIDE (BEAKER) (test 103 meq/L 98-107 izjc=601) CO2 (BEAKER) (test 26 meq/L 22-29 sywx=627) BLOOD UREA NITROGEN 22 mg/dL 7-21 (BEAKER) (test uauu=216) CREATININE (BEAKER) (test 2.16 mg/dL 0.57-1.25 snwn=901) GLUCOSE RANDOM (BEAKER) 87 mg/dL 70-105 (test rwuj=699) CALCIUM (BEAKER) (test 8.2 mg/dL 8.4-10.2 iemk=524) EGFR (BEAKER) (test 27 mL/min/1.73 sq m ESTIMATED GFR IS NOT dngf=0982) ACCURATE CREATININE CLEARANCE IN PREDICTING GLOMERULAR FILTRATION RATE. ESTIMATED GFR IS NOT APPLICABLE FOR DIALYSIS PATIENTS. [id number] 11:39:00 Test Item Value Reference Range Comments PHOSPHORUS (BEAKER) (test hulx=797) 2.5 mg/dL 2.3-4.7 [id number] 11:39:00 Test Item Value Reference Range Comments MAGNESIUM (BEAKER) (test lmle=446) 1.6 mg/dL 1.6-2.6 POCT-GLUCOSE [id number] 08:55:00 Test Item Value Reference Range Comments POC-GLUCOSE METER (BEAKER) 80 mg/dL 70-110 TESTED AT [facility] [address] [facility] (test qinm=8783) [facility] [address] CALCIUM, [id number] 06:53:00 Test Item Value Reference Range Comments CALCIUM IONIZED (BEAKER) (test craf=911) 0.98 mmol/L 1.12-1.27 PH, BLOOD (BEAKER) (test ccwv=8270) 7.64 CBC W/PLT COUNT & AUTO [id number] 06:53:00 Test Item Value Reference Range Comments WHITE BLOOD CELL COUNT (BEAKER) (test fnho=505) 8.9 K/ L 3.5-10.5 RED BLOOD CELL COUNT (BEAKER) (test iszm=603) 2.79 M/ L 3.93-5.22 HEMOGLOBIN (BEAKER) (test eogc=240) 8.3 GM/DL 11.2-15.7 HEMATOCRIT (BEAKER) (test zlwr=831) 26.5 % 34.1-44.9 MEAN CORPUSCULAR VOLUME (BEAKER) (test tfup=789) 95.0 fL 79.4-94.8 MEAN CORPUSCULAR HEMOGLOBIN (BEAKER) (test 29.7 pg 25.6-32.2 vwiz=487) MEAN CORPUSCULAR HEMOGLOBIN CONC (BEAKER) (test 31.3 GM/DL 32.2-35.5 rszn=826) RED CELL DISTRIBUTION WIDTH (BEAKER) (test 15.0 % 11.7-14.4 ripq=253) PLATELET COUNT (BEAKER) (test yiie=805) 134 K/CU MM 150-450 MEAN PLATELET VOLUME (BEAKER) (test criv=967) 10.6 fL 9.4-12.3 NUCLEATED RED BLOOD CELLS (BEAKER) (test 0 /100 WBC 0-0 ilxp=868) NEUTROPHILS RELATIVE PERCENT (BEAKER) (test 77 % bude=409) LYMPHOCYTES RELATIVE PERCENT (BEAKER) (test 6 % exkh=787) MONOCYTES RELATIVE PERCENT (BEAKER) (test 9 % lwzv=239) EOSINOPHILS RELATIVE PERCENT (BEAKER) (test 6 % zhtr=676) BASOPHILS RELATIVE PERCENT (BEAKER) (test 1 % khas=348) NEUTROPHILS ABSOLUTE COUNT (BEAKER) (test 6.93 K/ L 1.56-6.13 ezdn=346) LYMPHOCYTES ABSOLUTE COUNT (BEAKER) (test 0.55 K/ L 1.18-3.74 ocuh=509) MONOCYTES ABSOLUTE COUNT (BEAKER) (test 0.81 K/ L 0.24-0.36 advw=763) EOSINOPHILS ABSOLUTE COUNT (BEAKER) (test 0.53 K/ L 0.04-0.36 xweb=479) BASOPHILS ABSOLUTE COUNT (BEAKER) (test 0.05 K/ L 0.01-0.08 apnc=808) IMMATURE GRANULOCYTES-RELATIVE PERCENT (BEAKER) 1 % 0-1 (test bvld=8922) PLATELET AGGREGATION: FUNCTION [id number] 14:31:00 Test Item Value Reference Range Comments WEAK ADP RESULT(BEAKER) (test 41 % 60-91 iclq=4970) PLATELET FUNCTION SCREEN 40-49% indicates moderate INTERP (BEAKER) (test platelet dysfunction wccs=6954) [id number] Jada Freire MD (BEAKER) (test wkwm=0388) (electronic signature) PLATELET COUNT AGG (BEAKER) 111 K/CU MM 150-450 (test srrv=7425) Platelet Function Screen results may be falsely low with platelet counts<100, 000/cu mm.POCT-GLUCOSE [id number] 13:37:00 Test Item Value Reference Range Comments POC-GLUCOSE METER (BEAKER) 88 mg/dL 70-110 TESTED AT [facility] [address] [facility] (test jbbm=4789) [facility] [address] HEPARIN [id number] 13:18:00 Test Item Value Reference Range Comments HEPARIN ANTIBODY (BEAKER) Positive-See Serotonin Release Negative (test emqn=036) Assay for Confirmation HEPARIN ANTIBODY OD (BEAKER) 3.000 <0.400 (test rgqj=4279) 4T TOTAL SCORE (BEAKER) 2 (test ptro=6728) Probability of HIT based on scoring system: 6-8=High probability; 4-5= intermediate probability; 0-3=low probabilityPOCT-GLUCOSE [id number] 08:44: 00 Test Item Value Reference Range Comments POC-GLUCOSE METER (BEAKER) 111 mg/dL 70-110 TESTED AT [facility] [address] [facility] (test lihb=0333) [facility] [address] COMPREHENSIVE METABOLIC [id number] 06:34:00 Test Item Value Reference Range Comments TOTAL PROTEIN (BEAKER) 5.7 gm/dL 6.0-8.3 (test kxan=645) ALBUMIN (BEAKER) (test 2.4 g/dL 3.5-5.0 xfsz=1414) ALKALINE PHOSPHATASE 115 U/L 40-150 (BEAKER) (test jlob=174) BILIRUBIN TOTAL (BEAKER) 0.6 mg/dL 0.2-1.2 (test pkpr=119) SODIUM (BEAKER) (test 136 meq/L 136-145 kkog=661) POTASSIUM (BEAKER) (test 4.4 meq/L 3.5-5.1 eaoa=790) CHLORIDE (BEAKER) (test 105 meq/L 98-107 yexe=877) CO2 (BEAKER) (test 25 meq/L 22-29 ssbf=765) BLOOD UREA NITROGEN 40 mg/dL 7-21 (BEAKER) (test ejwy=062) CREATININE (BEAKER) (test 3.29 mg/dL 0.57-1.25 nfmx=159) GLUCOSE RANDOM (BEAKER) 91 mg/dL 70-105 (test nuln=747) CALCIUM (BEAKER) (test 8.4 mg/dL 8.4-10.2 epdo=160) AST (SGOT) (BEAKER) (test 16 U/L 5-34 zpjc=337) ALT (SGPT) (BEAKER) (test 10 U/L 6-55 uusm=634) EGFR (BEAKER) (test 17 mL/min/1.73 sq m ESTIMATED GFR IS NOT bllg=7038) ACCURATE CREATININE CLEARANCE IN PREDICTING GLOMERULAR FILTRATION RATE. ESTIMATED GFR IS NOT APPLICABLE FOR DIALYSIS PATIENTS. [id number] 05:53:00 Test Item Value Reference Range Comments PHOSPHORUS (BEAKER) (test oeaj=439) 3.6 mg/dL 2.3-4.7 [id number] 05:53:00 Test Item Value Reference Range Comments MAGNESIUM (BEAKER) (test bljq=403) 1.8 mg/dL 1.6-2.6 [id number] 05:32:00 Test Item Value Reference Range Comments PARTIAL THROMBOPLASTIN TIME (BEAKER) (test 42.2 seconds 22.5-36.0 giwy=964) Draw baseline aPTT prior to infusionCBC W/PLT COUNT & AUTO [id number] 05:15:00 Test Item Value Reference Range Comments WHITE BLOOD CELL COUNT (BEAKER) (test ywdd=083) 9.4 K/ L 3.5-10.5 RED BLOOD CELL COUNT (BEAKER) (test lqkk=005) 2.76 M/ L 3.93-5.22 HEMOGLOBIN (BEAKER) (test mwqu=161) 8.2 GM/DL 11.2-15.7 HEMATOCRIT (BEAKER) (test jhfj=523) 26.5 % 34.1-44.9 MEAN CORPUSCULAR VOLUME (BEAKER) (test izwl=073) 96.0 fL 79.4-94.8 MEAN CORPUSCULAR HEMOGLOBIN (BEAKER) (test 29.7 pg 25.6-32.2 viuv=355) MEAN CORPUSCULAR HEMOGLOBIN CONC (BEAKER) (test 30.9 GM/DL 32.2-35.5 ectf=121) RED CELL DISTRIBUTION WIDTH (BEAKER) (test 15.1 % 11.7-14.4 xmio=118) PLATELET COUNT (BEAKER) (test juhe=427) 114 K/CU MM 150-450 MEAN PLATELET VOLUME (BEAKER) (test ehxd=559) 10.7 fL 9.4-12.3 NUCLEATED RED BLOOD CELLS (BEAKER) (test 0 /100 WBC 0-0 hala=356) NEUTROPHILS RELATIVE PERCENT (BEAKER) (test 76 % udmm=873) LYMPHOCYTES RELATIVE PERCENT (BEAKER) (test 8 % ujtq=889) MONOCYTES RELATIVE PERCENT (BEAKER) (test 8 % rzlo=139) EOSINOPHILS RELATIVE PERCENT (BEAKER) (test 7 % lyae=640) BASOPHILS RELATIVE PERCENT (BEAKER) (test 0 % fmja=884) NEUTROPHILS ABSOLUTE COUNT (BEAKER) (test 7.16 K/ L 1.56-6.13 gkqe=291) LYMPHOCYTES ABSOLUTE COUNT (BEAKER) (test 0.75 K/ L 1.18-3.74 whgz=278) MONOCYTES ABSOLUTE COUNT (BEAKER) (test 0.77 K/ L 0.24-0.36 hfdf=914) EOSINOPHILS ABSOLUTE COUNT (BEAKER) (test 0.62 K/ L 0.04-0.36 fegv=755) BASOPHILS ABSOLUTE COUNT (BEAKER) (test 0.04 K/ L 0.01-0.08 opnr=107) IMMATURE GRANULOCYTES-RELATIVE PERCENT (BEAKER) 0 % 0-1 (test dmug=9532) POCT-GLUCOSE [id number] 21:21:00 Test Item Value Reference Range Comments POC-GLUCOSE METER (BEAKER) 168 mg/dL 70-110 TESTED AT [address] (test bsoc=5524) [place] [id number] POCT-GLUCOSE [id number] 16:46:00 Test Item Value Reference Range Comments POC-GLUCOSE METER (BEAKER) 135 mg/dL 70-110 TESTED AT [address] (test mvge=4348) [place] [id number] POCT-GLUCOSE [id number] 12:31:00 Test Item Value Reference Range Comments POC-GLUCOSE METER (BEAKER) 96 mg/dL 70-110 TESTED AT [address] (test rqeh=4461) [place] [id number] POCT-GLUCOSE [id number] 08:23:00 Test Item Value Reference Range Comments POC-GLUCOSE METER (BEAKER) 97 mg/dL 70-110 TESTED AT [address] (test jian=4360) [place] [id number] COMPREHENSIVE METABOLIC [id number] 06:20:00 Test Item Value Reference Range Comments TOTAL PROTEIN (BEAKER) 5.9 gm/dL 6.0-8.3 (test lscp=197) ALBUMIN (BEAKER) (test 2.5 g/dL 3.5-5.0 waft=3127) ALKALINE PHOSPHATASE 120 U/L 40-150 (BEAKER) (test jaxf=810) BILIRUBIN TOTAL (BEAKER) 0.7 mg/dL 0.2-1.2 (test fubb=865) SODIUM (BEAKER) (test 136 meq/L 136-145 gsjm=544) POTASSIUM (BEAKER) (test 4.4 meq/L 3.5-5.1 ysak=032) CHLORIDE (BEAKER) (test 104 meq/L 98-107 aufl=205) CO2 (BEAKER) (test 27 meq/L 22-29 wtrg=749) BLOOD UREA NITROGEN 24 mg/dL 7-21 (BEAKER) (test fkfj=079) CREATININE (BEAKER) (test 2.09 mg/dL 0.57-1.25 lsye=446) GLUCOSE RANDOM (BEAKER) 92 mg/dL 70-105 (test gqxa=329) CALCIUM (BEAKER) (test 8.5 mg/dL 8.4-10.2 caen=891) AST (SGOT) (BEAKER) (test 23 U/L 5-34 rdrz=619) ALT (SGPT) (BEAKER) (test 12 U/L 6-55 vihd=942) EGFR (BEAKER) (test 28 mL/min/1.73 sq m ESTIMATED GFR IS NOT vxll=0762) ACCURATE CREATININE CLEARANCE IN PREDICTING GLOMERULAR FILTRATION RATE. ESTIMATED GFR IS NOT APPLICABLE FOR DIALYSIS PATIENTS. [id number] 06:17:00 Test Item Value Reference Range Comments PHOSPHORUS (BEAKER) (test vqzv=282) 3.2 mg/dL 2.3-4.7 [id number] 06:17:00 Test Item Value Reference Range Comments MAGNESIUM (BEAKER) (test cncr=616) 1.6 mg/dL 1.6-2.6 CBC W/PLT COUNT & AUTO [id number] 05:54:00 Test Item Value Reference Range Comments WHITE BLOOD CELL COUNT (BEAKER) (test clcr=333) 10.2 K/ L 3.5-10.5 RED BLOOD CELL COUNT (BEAKER) (test jgmw=465) 2.93 M/ L 3.93-5.22 HEMOGLOBIN (BEAKER) (test jctj=099) 8.8 GM/DL 11.2-15.7 HEMATOCRIT (BEAKER) (test uzpf=050) 27.7 % 34.1-44.9 MEAN CORPUSCULAR VOLUME (BEAKER) (test xrdn=149) 94.5 fL 79.4-94.8 MEAN CORPUSCULAR HEMOGLOBIN (BEAKER) (test 30.0 pg 25.6-32.2 geeq=931) MEAN CORPUSCULAR HEMOGLOBIN CONC (BEAKER) (test 31.8 GM/DL 32.2-35.5 doka=012) RED CELL DISTRIBUTION WIDTH (BEAKER) (test 15.2 % 11.7-14.4 neig=807) PLATELET COUNT (BEAKER) (test kwty=659) 74 K/CU MM 150-450 MEAN PLATELET VOLUME (BEAKER) (test bbnq=441) 11.1 fL 9.4-12.3 NUCLEATED RED BLOOD CELLS (BEAKER) (test 0 /100 WBC 0-0 bmhy=021) NEUTROPHILS RELATIVE PERCENT (BEAKER) (test 77 % ifqv=032) LYMPHOCYTES RELATIVE PERCENT (BEAKER) (test 6 % mwwp=067) MONOCYTES RELATIVE PERCENT (BEAKER) (test 9 % wtef=636) EOSINOPHILS RELATIVE PERCENT (BEAKER) (test 6 % qbec=697) BASOPHILS RELATIVE PERCENT (BEAKER) (test 1 % xoen=688) NEUTROPHILS ABSOLUTE COUNT (BEAKER) (test 7.86 K/ L 1.56-6.13 pviz=166) LYMPHOCYTES ABSOLUTE COUNT (BEAKER) (test 0.61 K/ L 1.18-3.74 swzl=655) MONOCYTES ABSOLUTE COUNT (BEAKER) (test lrho=842) 0.86 K/ L 0.24-0.36 EOSINOPHILS ABSOLUTE COUNT (BEAKER) (test 0.65 K/ L 0.04-0.36 vzuv=128) BASOPHILS ABSOLUTE COUNT (BEAKER) (test bhxv=837) 0.05 K/ L 0.01-0.08 IMMATURE GRANULOCYTES-RELATIVE PERCENT (BEAKER) 1 % 0-1 (test ycxc=8365) BLOOD [id number] 02:01:00 Test Item Value Reference Range Comments CULTURE (BEAKER) (test pwvk=0125) No growth in 5 days BLOOD [id number] 02:01:00 Test Item Value Reference Range Comments CULTURE (BEAKER) (test hnyq=2235) No growth in 5 days POCT-GLUCOSE [id number] 21:21:00 Test Item Value Reference Range Comments POC-GLUCOSE METER (BEAKER) 151 mg/dL 70-110 TESTED AT [facility] [address] [facility] (test wevx=0818) [facility] [address] POCT-GLUCOSE [id number] 17:58:00 Test Item Value Reference Range Comments POC-GLUCOSE METER (BEAKER) 135 mg/dL 70-110 TESTED AT [facility] [address] [facility] (test iuve=0268) [facility] [address] CT, [id number] 16:34:00FINAL REPORT CT scan of the abdomen and pelvis. MEDICAL HISTORY: Abdominal pain. COMPARISON STUDY: January 25, 2019. TECHNIQUE: Contiguous helical slices were acquired through the abdomen and pelvis post administration of intravenous and oral contrast. This exam was performed according to our department dose optimization program which includes automated exposure control, adjustmentof the mA and/or kV according to the patient's size and/or use of iterative reconstruction technique. FINDINGS: Bilateral small pleural effusions are seen with adjacent atelectasis or consolidation. Some groundglass opacities are seen. The liver, spleen, pancreas , and adrenal glands are unremarkable. Both [place] kidneys are atrophic in nature. The gallbladder is distended with some vicarious excretion. No biliary dilatation is seen. There are no dilated loops of bowel seen to suggest obstruction. The appendix is now well seen but some clips are seen in the right lower quadrant. No obvious signs of appendicitis are noted. Diverticulosis is seen without evidence of diverticulitis. There is no free fluid or free air. Post surgical changes are seen in the left pelvis. There has been interval development of a 10.5 x 2.9 cm region of high attenuation fluid adjacent to the surgical site, most likely a hematoma. Also seen is a 8.5 x 5.4 cm hematoma in the anterior subtendinous pelvic tissues, stable from previous but with more high attenuation content, possibly related to some internal hemorrhage. Bone windows demonstrate degenerative changes. Postsurgical changes are seen in the left pelvis. IMPRESSION:1. Postoperative changes in left pelvis with interval development of fluid along the left pelvic sidewall suspicious for hematoma.2. Continued likely hematoma in the subcutis tissues of the anteriorpelvis.3. Distended gallbladder, possibly related to n.p.o. state. This is similar to previous.4. Atrophic appearing [place] kidneys.5. Diffuse anasarca. Bilateral pleural effusions. A verbal report wasgiven to the patient's nurse, Kael at the time of dictation. He was instructed to inform the physician. Signed: Leo Trivedi MDReport Verified Date/Time: 02/10/2019 16:34:31 Reading Location: [facility] B1 [id number] Ortho Consult Reading Room COMPREHENSIVE METABOLIC [id number] 05:11:00 Test Item Value Reference Range Comments TOTAL PROTEIN (BEAKER) 5.6 gm/dL 6.0-8.3 (test cwqh=836) ALBUMIN (BEAKER) (test 2.4 g/dL 3.5-5.0 uvfb=8028) ALKALINE PHOSPHATASE 111 U/L 40-150 (BEAKER) (test tmkq=966) BILIRUBIN TOTAL (BEAKER) 0.5 mg/dL 0.2-1.2 (test iayd=719) SODIUM (BEAKER) (test 138 meq/L 136-145 qspd=446) POTASSIUM (BEAKER) (test 4.8 meq/L 3.5-5.1 rzwp=896) CHLORIDE (BEAKER) (test 106 meq/L 98-107 grut=126) CO2 (BEAKER) (test 26 meq/L 22-29 vwsf=961) BLOOD UREA NITROGEN 27 mg/dL 7-21 (BEAKER) (test tvwo=561) CREATININE (BEAKER) (test 2.47 mg/dL 0.57-1.25 qejb=515) GLUCOSE RANDOM (BEAKER) 91 mg/dL 70-105 (test mvrv=773) CALCIUM (BEAKER) (test 8.5 mg/dL 8.4-10.2 kntm=050) AST (SGOT) (BEAKER) (test 23 U/L 5-34 izix=745) ALT (SGPT) (BEAKER) (test 10 U/L 6-55 ahby=784) EGFR (BEAKER) (test 23 mL/min/1.73 sq m ESTIMATED GFR IS NOT bkje=6151) ACCURATE CREATININE CLEARANCE IN PREDICTING GLOMERULAR FILTRATION RATE. ESTIMATED GFR IS NOT APPLICABLE FOR DIALYSIS PATIENTS. [id number] 05:09:00 Test Item Value Reference Range Comments PHOSPHORUS (BEAKER) (test smum=018) 2.9 mg/dL 2.3-4.7 [id number] 05:09:00 Test Item Value Reference Range Comments MAGNESIUM (BEAKER) (test ucpi=606) 1.7 mg/dL 1.6-2.6 CBC W/PLT COUNT & AUTO [id number] 04:30:00 Test Item Value Reference Range Comments WHITE BLOOD CELL COUNT (BEAKER) (test asuu=807) 8.7 K/ L 3.5-10.5 RED BLOOD CELL COUNT (BEAKER) (test fgzz=325) 2.30 M/ L 3.93-5.22 HEMOGLOBIN (BEAKER) (test dlrz=235) 6.9 GM/DL 11.2-15.7 HEMATOCRIT (BEAKER) (test efkb=589) 22.1 % 34.1-44.9 MEAN CORPUSCULAR VOLUME (BEAKER) (test agvc=427) 96.1 fL 79.4-94.8 MEAN CORPUSCULAR HEMOGLOBIN (BEAKER) (test 30.0 pg 25.6-32.2 vpiy=696) MEAN CORPUSCULAR HEMOGLOBIN CONC (BEAKER) (test 31.2 GM/DL 32.2-35.5 jqrm=515) RED CELL DISTRIBUTION WIDTH (BEAKER) (test 15.1 % 11.7-14.4 coay=144) PLATELET COUNT (BEAKER) (test goqa=723) 92 K/CU MM 150-450 MEAN PLATELET VOLUME (BEAKER) (test jioh=381) 10.7 fL 9.4-12.3 NUCLEATED RED BLOOD CELLS (BEAKER) (test 0 /100 WBC 0-0 wgej=459) NEUTROPHILS RELATIVE PERCENT (BEAKER) (test 72 % wgps=834) LYMPHOCYTES RELATIVE PERCENT (BEAKER) (test 10 % ydyf=779) MONOCYTES RELATIVE PERCENT (BEAKER) (test 11 % uxrm=549) EOSINOPHILS RELATIVE PERCENT (BEAKER) (test 6 % eudd=055) BASOPHILS RELATIVE PERCENT (BEAKER) (test 0 % kpti=371) NEUTROPHILS ABSOLUTE COUNT (BEAKER) (test 6.31 K/ L 1.56-6.13 ltvv=008) LYMPHOCYTES ABSOLUTE COUNT (BEAKER) (test 0.90 K/ L 1.18-3.74 dkzi=670) MONOCYTES ABSOLUTE COUNT (BEAKER) (test czia=682) 0.94 K/ L 0.24-0.36 EOSINOPHILS ABSOLUTE COUNT (BEAKER) (test 0.49 K/ L 0.04-0.36 pulv=316) BASOPHILS ABSOLUTE COUNT (BEAKER) (test vjvm=105) 0.03 K/ L 0.01-0.08 IMMATURE GRANULOCYTES-RELATIVE PERCENT (BEAKER) 1 % 0-1 (test letd=5071) POCT-GLUCOSE [id number] 21:29:00 Test Item Value Reference Range Comments POC-GLUCOSE METER (BEAKER) 146 mg/dL 70-110 TESTED AT [address] (test xonp=6643) [facility] [address] POCT-GLUCOSE [id number] 17:41:00 Test Item Value Reference Range Comments POC-GLUCOSE METER (BEAKER) 122 mg/dL 70-110 TESTED AT [address] (test vitj=4199) [place] [id number] POCT-GLUCOSE [id number] 12:40:00 Test Item Value Reference Range Comments POC-GLUCOSE METER (BEAKER) 108 mg/dL 70-110 TESTED AT [address] (test xzim=6219) [facility] [address] POCT-GLUCOSE [id number] 07:13:00 Test Item Value Reference Range Comments POC-GLUCOSE METER (BEAKER) 92 mg/dL 70-110 TESTED AT [address] (test kgkj=3340) [facility] [address] B-TYPE NATRIURETIC FACTOR (BNP)2019-02-09 05:36:00 Test Item Value Reference Range Comments B-TYPE NATRIURETIC PEPTIDE (BEAKER) (test 3204 pg/mL 0-100 wlhk=936) COMPREHENSIVE METABOLIC [id number] 04:57:00 Test Item Value Reference Range Comments TOTAL PROTEIN (BEAKER) 5.8 gm/dL 6.0-8.3 (test febc=885) ALBUMIN (BEAKER) (test 2.4 g/dL 3.5-5.0 ngxb=4202) ALKALINE PHOSPHATASE 110 U/L 40-150 (BEAKER) (test pncf=651) BILIRUBIN TOTAL (BEAKER) 0.5 mg/dL 0.2-1.2 (test hcva=716) SODIUM (BEAKER) (test 136 meq/L 136-145 xjyc=115) POTASSIUM (BEAKER) (test 4.9 meq/L 3.5-5.1 lvcv=727) CHLORIDE (BEAKER) (test 102 meq/L 98-107 qycp=288) CO2 (BEAKER) (test 29 meq/L 22-29 kefd=259) BLOOD UREA NITROGEN 37 mg/dL 7-21 (BEAKER) (test salv=513) CREATININE (BEAKER) (test 3.21 mg/dL 0.57-1.25 paww=207) GLUCOSE RANDOM (BEAKER) 99 mg/dL 70-105 (test pfdd=121) CALCIUM (BEAKER) (test 8.5 mg/dL 8.4-10.2 reau=023) AST (SGOT) (BEAKER) (test 15 U/L 5-34 hpvg=519) ALT (SGPT) (BEAKER) (test 7 U/L 6-55 dnld=407) EGFR (BEAKER) (test 17 mL/min/1.73 sq m ESTIMATED GFR IS NOT tleh=5862) ACCURATE CREATININE CLEARANCE IN PREDICTING GLOMERULAR FILTRATION RATE. ESTIMATED GFR IS NOT APPLICABLE FOR DIALYSIS PATIENTS. CALCIUM, [id number] 04:36:00 Test Item Value Reference Range Comments CALCIUM IONIZED (BEAKER) (test udck=670) 1.09 mmol/L 1.12-1.27 PH, BLOOD (BEAKER) (test pfmq=0660) 7.44 [id number] 04:29:00 Test Item Value Reference Range Comments PHOSPHORUS (BEAKER) (test cpmz=551) 2.9 mg/dL 2.3-4.7 [id number] 04:29:00 Test Item Value Reference Range Comments MAGNESIUM (BEAKER) (test xpua=549) 1.9 mg/dL 1.6-2.6 CBC W/PLT COUNT & AUTO [id number] 03:19:00 Test Item Value Reference Range Comments WHITE BLOOD CELL COUNT (BEAKER) (test nadl=165) 10.2 K/ L 3.5-10.5 RED BLOOD CELL COUNT (BEAKER) (test kffe=352) 2.45 M/ L 3.93-5.22 HEMOGLOBIN (BEAKER) (test vbkd=804) 7.3 GM/DL 11.2-15.7 HEMATOCRIT (BEAKER) (test ezgh=140) 23.4 % 34.1-44.9 MEAN CORPUSCULAR VOLUME (BEAKER) (test kurc=932) 95.5 fL 79.4-94.8 MEAN CORPUSCULAR HEMOGLOBIN (BEAKER) (test 29.8 pg 25.6-32.2 gtqh=153) MEAN CORPUSCULAR HEMOGLOBIN CONC (BEAKER) (test 31.2 GM/DL 32.2-35.5 mjxy=201) RED CELL DISTRIBUTION WIDTH (BEAKER) (test 14.8 % 11.7-14.4 hkve=544) PLATELET COUNT (BEAKER) (test nzym=918) 135 K/CU MM 150-450 MEAN PLATELET VOLUME (BEAKER) (test oufq=411) 10.3 fL 9.4-12.3 NUCLEATED RED BLOOD CELLS (BEAKER) (test 0 /100 WBC 0-0 zyrm=285) NEUTROPHILS RELATIVE PERCENT (BEAKER) (test 76 % yixi=648) LYMPHOCYTES RELATIVE PERCENT (BEAKER) (test 9 % hvwd=270) MONOCYTES RELATIVE PERCENT (BEAKER) (test 9 % pcaa=635) EOSINOPHILS RELATIVE PERCENT (BEAKER) (test 5 % damj=347) BASOPHILS RELATIVE PERCENT (BEAKER) (test 0 % bgfp=959) NEUTROPHILS ABSOLUTE COUNT (BEAKER) (test 7.77 K/ L 1.56-6.13 klnc=631) LYMPHOCYTES ABSOLUTE COUNT (BEAKER) (test 0.90 K/ L 1.18-3.74 ponu=551) MONOCYTES ABSOLUTE COUNT (BEAKER) (test 0.94 K/ L 0.24-0.36 ujay=662) EOSINOPHILS ABSOLUTE COUNT (BEAKER) (test 0.49 K/ L 0.04-0.36 wenw=742) BASOPHILS ABSOLUTE COUNT (BEAKER) (test 0.04 K/ L 0.01-0.08 ltcl=581) IMMATURE GRANULOCYTES-RELATIVE PERCENT (BEAKER) 1 % 0-1 (test xcjb=7155) POCT-GLUCOSE [id number] 21:29:00 Test Item Value Reference Range Comments POC-GLUCOSE METER (BEAKER) 147 mg/dL 70-110 TESTED AT [facility] [address] [facility] (test vwcb=8762) [facility] [address] POCT-GLUCOSE [id number] 13:45:00 Test Item Value Reference Range Comments POC-GLUCOSE METER (BEAKER) 117 mg/dL 70-110 TESTED AT [facility] [address] [facility] (test usov=3794) [facility] [address] POCT-GLUCOSE [id number] 07:11:00 Test Item Value Reference Range Comments POC-GLUCOSE METER (BEAKER) 100 mg/dL 70-110 TESTED AT [facility] [address] [facility] (test ljxy=2188) [facility] [address] COMPREHENSIVE METABOLIC [id number] 05:53:00 Test Item Value Reference Range Comments TOTAL PROTEIN (BEAKER) 5.8 gm/dL 6.0-8.3 (test iwkl=365) ALBUMIN (BEAKER) (test 2.4 g/dL 3.5-5.0 kjnj=9265) ALKALINE PHOSPHATASE 103 U/L 40-150 (BEAKER) (test seln=835) BILIRUBIN TOTAL (BEAKER) 0.5 mg/dL 0.2-1.2 (test sdew=329) SODIUM (BEAKER) (test 138 meq/L 136-145 hmsz=583) POTASSIUM (BEAKER) (test 4.5 meq/L 3.5-5.1 jmdl=397) CHLORIDE (BEAKER) (test 102 meq/L 98-107 waif=915) CO2 (BEAKER) (test 30 meq/L 22-29 iczs=950) BLOOD UREA NITROGEN 25 mg/dL 7-21 (BEAKER) (test iifp=987) CREATININE (BEAKER) (test 2.40 mg/dL 0.57-1.25 cxbs=009) GLUCOSE RANDOM (BEAKER) 97 mg/dL 70-105 (test necf=072) CALCIUM (BEAKER) (test 8.3 mg/dL 8.4-10.2 cbuu=357) AST (SGOT) (BEAKER) (test 16 U/L 5-34 ywyj=125) ALT (SGPT) (BEAKER) (test < U/L 6-55 gnwu=285) EGFR (BEAKER) (test 24 mL/min/1.73 sq m ESTIMATED GFR IS NOT kssd=1741) ACCURATE CREATININE CLEARANCE IN PREDICTING GLOMERULAR FILTRATION RATE. ESTIMATED GFR IS NOT APPLICABLE FOR DIALYSIS PATIENTS. [id number] 05:51:00 Test Item Value Reference Range Comments PHOSPHORUS (BEAKER) (test kxvy=191) 2.8 mg/dL 2.3-4.7 [id number] 05:51:00 Test Item Value Reference Range Comments MAGNESIUM (BEAKER) (test ewly=624) 1.8 mg/dL 1.6-2.6 CBC W/PLT COUNT & AUTO [id number] 05:01:00 Test Item Value Reference Range Comments WHITE BLOOD CELL COUNT (BEAKER) (test xnba=960) 11.5 K/ L 3.5-10.5 RED BLOOD CELL COUNT (BEAKER) (test exta=822) 2.53 M/ L 3.93-5.22 HEMOGLOBIN (BEAKER) (test kggr=029) 7.5 GM/DL 11.2-15.7 HEMATOCRIT (BEAKER) (test ktuo=868) 23.8 % 34.1-44.9 MEAN CORPUSCULAR VOLUME (BEAKER) (test pwfl=051) 94.1 fL 79.4-94.8 MEAN CORPUSCULAR HEMOGLOBIN (BEAKER) (test 29.6 pg 25.6-32.2 mcea=010) MEAN CORPUSCULAR HEMOGLOBIN CONC (BEAKER) (test 31.5 GM/DL 32.2-35.5 wtrl=547) RED CELL DISTRIBUTION WIDTH (BEAKER) (test 15.0 % 11.7-14.4 tuhq=231) PLATELET COUNT (BEAKER) (test jnkq=702) 116 K/CU MM 150-450 MEAN PLATELET VOLUME (BEAKER) (test ejuk=200) 10.4 fL 9.4-12.3 NUCLEATED RED BLOOD CELLS (BEAKER) (test 0 /100 WBC 0-0 iuwm=515) NEUTROPHILS RELATIVE PERCENT (BEAKER) (test 80 % qmee=430) LYMPHOCYTES RELATIVE PERCENT (BEAKER) (test 6 % zvsk=240) MONOCYTES RELATIVE PERCENT (BEAKER) (test 8 % ticq=243) EOSINOPHILS RELATIVE PERCENT (BEAKER) (test 5 % vagw=799) BASOPHILS RELATIVE PERCENT (BEAKER) (test 0 % chxh=812) NEUTROPHILS ABSOLUTE COUNT (BEAKER) (test 9.23 K/ L 1.56-6.13 aopj=782) LYMPHOCYTES ABSOLUTE COUNT (BEAKER) (test 0.73 K/ L 1.18-3.74 tjoy=559) MONOCYTES ABSOLUTE COUNT (BEAKER) (test 0.92 K/ L 0.24-0.36 acof=525) EOSINOPHILS ABSOLUTE COUNT (BEAKER) (test 0.54 K/ L 0.04-0.36 ahrz=701) BASOPHILS ABSOLUTE COUNT (BEAKER) (test 0.05 K/ L 0.01-0.08 vwrs=041) IMMATURE GRANULOCYTES-RELATIVE PERCENT (BEAKER) 1 % 0-1 (test cvdw=5712) POCT-GLUCOSE [id number] 21:31:00 Test Item Value Reference Range Comments POC-GLUCOSE METER (BEAKER) 115 mg/dL 70-110 TESTED AT [address] (test xhgu=6525) [place] [address] HEMOGLOBIN AND [id number] 13:26:00 Test Item Value Reference Range Comments HEMOGLOBIN (BEAKER) (test dsok=674) 8.3 GM/DL 11.2-15.7 HEMATOCRIT (BEAKER) (test ezil=701) 26.1 % 34.1-44.9 CREATININE, RANDOM [id number] 10:02:00 Test Item Value Reference Range Comments CREATININE URINE (BEAKER) (test wmvj=961) 19.0 mg/dL Qc ok in unity Reference Range: No NormalsPOCT-GLUCOSE [id number] 08:47:00 Test Item Value Reference Range Comments POC-GLUCOSE METER (BEAKER) 125 mg/dL 70-110 TESTED AT [address] (test mhkx=9221) [place] [id number] COMPREHENSIVE METABOLIC [id number] 06:12:00 Test Item Value Reference Range Comments TOTAL PROTEIN (BEAKER) 5.9 gm/dL 6.0-8.3 (test ycar=183) ALBUMIN (BEAKER) (test 2.5 g/dL 3.5-5.0 ghcd=0231) ALKALINE PHOSPHATASE 95 U/L 40-150 (BEAKER) (test ntal=470) BILIRUBIN TOTAL (BEAKER) 0.6 mg/dL 0.2-1.2 (test wgkv=066) SODIUM (BEAKER) (test 135 meq/L 136-145 ibdn=472) POTASSIUM (BEAKER) (test 4.7 meq/L 3.5-5.1 icae=982) CHLORIDE (BEAKER) (test 104 meq/L 98-107 eeth=779) CO2 (BEAKER) (test 27 meq/L 22-29 jnyn=903) BLOOD UREA NITROGEN 36 mg/dL 7-21 (BEAKER) (test cmnm=332) CREATININE (BEAKER) (test 3.35 mg/dL 0.57-1.25 xnbu=911) GLUCOSE RANDOM (BEAKER) 99 mg/dL 70-105 (test vpyf=680) CALCIUM (BEAKER) (test 8.6 mg/dL 8.4-10.2 yvxn=784) AST (SGOT) (BEAKER) (test 13 U/L 5-34 hnvd=017) ALT (SGPT) (BEAKER) (test < U/L 6-55 xipj=647) EGFR (BEAKER) (test 16 mL/min/1.73 sq m ESTIMATED GFR IS NOT apki=5414) ACCURATE CREATININE CLEARANCE IN PREDICTING GLOMERULAR FILTRATION RATE. ESTIMATED GFR IS NOT APPLICABLE FOR DIALYSIS PATIENTS. [id number] 05:59:00 Test Item Value Reference Range Comments PHOSPHORUS (BEAKER) (test gxtb=505) 3.1 mg/dL 2.3-4.7 [id number] 05:59:00 Test Item Value Reference Range Comments MAGNESIUM (BEAKER) (test lqog=988) 2.1 mg/dL 1.6-2.6 CBC W/PLT COUNT & AUTO [id number] 05:43:00 Test Item Value Reference Range Comments WHITE BLOOD CELL COUNT (BEAKER) (test vjqd=660) 12.2 K/ L 3.5-10.5 RED BLOOD CELL COUNT (BEAKER) (test cyym=527) 2.65 M/ L 3.93-5.22 HEMOGLOBIN (BEAKER) (test rzpc=250) 7.9 GM/DL 11.2-15.7 HEMATOCRIT (BEAKER) (test ndvh=892) 24.4 % 34.1-44.9 MEAN CORPUSCULAR VOLUME (BEAKER) (test thid=746) 92.1 fL 79.4-94.8 MEAN CORPUSCULAR HEMOGLOBIN (BEAKER) (test 29.8 pg 25.6-32.2 jhve=201) MEAN CORPUSCULAR HEMOGLOBIN CONC (BEAKER) (test 32.4 GM/DL 32.2-35.5 dlde=317) RED CELL DISTRIBUTION WIDTH (BEAKER) (test 15.0 % 11.7-14.4 caii=644) PLATELET COUNT (BEAKER) (test pfbd=628) 162 K/CU MM 150-450 MEAN PLATELET VOLUME (BEAKER) (test wbzr=364) 10.1 fL 9.4-12.3 NUCLEATED RED BLOOD CELLS (BEAKER) (test 0 /100 WBC 0-0 vqsw=567) NEUTROPHILS RELATIVE PERCENT (BEAKER) (test 80 % hnsm=988) LYMPHOCYTES RELATIVE PERCENT (BEAKER) (test 7 % hvhc=590) MONOCYTES RELATIVE PERCENT (BEAKER) (test 8 % srny=576) EOSINOPHILS RELATIVE PERCENT (BEAKER) (test 4 % dxwo=121) BASOPHILS RELATIVE PERCENT (BEAKER) (test 1 % vpbx=323) NEUTROPHILS ABSOLUTE COUNT (BEAKER) (test 9.71 K/ L 1.56-6.13 oawm=370) LYMPHOCYTES ABSOLUTE COUNT (BEAKER) (test 0.90 K/ L 1.18-3.74 egbf=020) MONOCYTES ABSOLUTE COUNT (BEAKER) (test 0.93 K/ L 0.24-0.36 kviz=027) EOSINOPHILS ABSOLUTE COUNT (BEAKER) (test 0.53 K/ L 0.04-0.36 rwhu=558) BASOPHILS ABSOLUTE COUNT (BEAKER) (test 0.06 K/ L 0.01-0.08 cbtp=945) IMMATURE GRANULOCYTES-RELATIVE PERCENT (BEAKER) 1 % 0-1 (test ylvb=0600) PROTEIN, RANDOM [id number] 05:03:00 Test Item Value Reference Range Comments PROTEIN, URINE (BEAKER) (test gara=9150) 178 mg/dL 0-14 POCT-GLUCOSE [id number] 20:57:00 Test Item Value Reference Range Comments POC-GLUCOSE METER (BEAKER) 176 mg/dL 70-110 TESTED AT [address] (test icbq=1687) [facility] [address] HEMOGLOBIN AND [id number] 14:38:00 Test Item Value Reference Range Comments HEMOGLOBIN (BEAKER) (test fada=415) 7.7 GM/DL 11.2-15.7 HEMATOCRIT (BEAKER) (test bjpx=440) 24.0 % 34.1-44.9 POCT-GLUCOSE [id number] 14:15:00 Test Item Value Reference Range Comments POC-GLUCOSE METER (BEAKER) 137 mg/dL 70-110 TESTED AT [address] (test llpb=6721) [facility] [address] URINALYSIS W/ [id number] 10:27:00 Test Item Value Reference Range Comments COLOR (BEAKER) (test klja=520) Yellow CLARITY (BEAKER) (test djrs=660) Clear SPECIFIC GRAVITY UA (BEAKER) (test krst=211) 1.006 1.001-1.035 PH UA (BEAKER) (test cowe=782) 8.5 5.0-8.0 PROTEIN UA (BEAKER) (test mizu=372) 600 mg/dL Negative GLUCOSE UA (BEAKER) (test qpvv=145) 300 mg/dL Negative KETONES UA (BEAKER) (test wzmx=554) Negative Negative BILIRUBIN UA (BEAKER) (test uqtl=297) Negative Negative BLOOD UA (BEAKER) (test dobj=709) Negative Negative NITRITE UA (BEAKER) (test phkj=829) Negative Negative LEUKOCYTE ESTERASE UA (BEAKER) (test suoe=381) Negative Negative UROBILINOGEN UA (BEAKER) (test luqn=482) 0.2 mg/dL 0.2-1.0 RBC UA (BEAKER) (test mpng=939) 2 /HPF WBC UA (BEAKER) (test chkn=181) 2 /HPF SQUAMOUS EPITHELIAL (BEAKER) (test gblc=999) 1 /HPF SOURCE(BEAKER) (test pxch=6584) POCT-GLUCOSE [id number] 09:22:00 Test Item Value Reference Range Comments POC-GLUCOSE METER (BEAKER) 167 mg/dL 70-110 TESTED AT [address] (test ehjy=1160) [facility] [address] RAD, CHEST, 1 VIEW, NON [id number] 08:40:00Reason for exam:->post extubationShould this be performed at the bedside?->YesFINAL REPORT TECHNIQUE: Frontal chest radiograph dated 02/06/2019. CLINICAL HISTORY: Post extubation COMPARISON STUDY: Chest radiograph dated 02/05/2019 IMPRESSION: Right-sided vascular line is unchanged. There is improved aeration of the lung bases. Lungs are clear. No pleural effusion or pneumothorax. Cardiomediastinal silhouette is normal in size. No pulmonary edema. No fracture. Signed: Jagruti Mcarthureport Verified Date/Time: 02/06/2019 08 :40:46 Reading Location: [facility] Radiology Reading Room CALCIUM, [id number] 06: 33:00 Test Item Value Reference Range Comments CALCIUM IONIZED (BEAKER) (test tocf=915) 1.05 mmol/L 1.12-1.27 PH, BLOOD (BEAKER) (test juau=1814) 7.52 COMPREHENSIVE METABOLIC [id number] 06:22:00 Test Item Value Reference Range Comments TOTAL PROTEIN (BEAKER) 5.6 gm/dL 6.0-8.3 (test vugb=187) ALBUMIN (BEAKER) (test 2.3 g/dL 3.5-5.0 uoyx=2918) ALKALINE PHOSPHATASE 90 U/L 40-150 (BEAKER) (test pvtd=089) BILIRUBIN TOTAL (BEAKER) 0.6 mg/dL 0.2-1.2 (test ahgk=784) SODIUM (BEAKER) (test 139 meq/L 136-145 qxhb=815) POTASSIUM (BEAKER) (test 4.3 meq/L 3.5-5.1 yrvh=302) CHLORIDE (BEAKER) (test 105 meq/L 98-107 owzc=366) CO2 (BEAKER) (test 28 meq/L 22-29 qgta=917) BLOOD UREA NITROGEN 26 mg/dL 7-21 (BEAKER) (test gqiy=671) CREATININE (BEAKER) (test 2.52 mg/dL 0.57-1.25 msmb=266) GLUCOSE RANDOM (BEAKER) 92 mg/dL 70-105 (test nexy=577) CALCIUM (BEAKER) (test 8.4 mg/dL 8.4-10.2 hssb=761) AST (SGOT) (BEAKER) (test 15 U/L 5-34 paid=430) ALT (SGPT) (BEAKER) (test 6 U/L 6-55 bhsn=346) EGFR (BEAKER) (test 23 mL/min/1.73 sq m ESTIMATED GFR IS NOT esya=1136) ACCURATE CREATININE CLEARANCE IN PREDICTING GLOMERULAR FILTRATION RATE. ESTIMATED GFR IS NOT APPLICABLE FOR DIALYSIS PATIENTS. [id number] 06:16:00 Test Item Value Reference Range Comments PHOSPHORUS (BEAKER) (test cfel=227) 2.3 mg/dL 2.3-4.7 [id number] 06:16:00 Test Item Value Reference Range Comments MAGNESIUM (BEAKER) (test tsbr=827) 1.6 mg/dL 1.6-2.6 CBC W/PLT COUNT & AUTO [id number] 05:53:00 Test Item Value Reference Range Comments WHITE BLOOD CELL COUNT (BEAKER) (test mzof=575) 13.6 K/ L 3.5-10.5 RED BLOOD CELL COUNT (BEAKER) (test jtfx=196) 2.60 M/ L 3.93-5.22 HEMOGLOBIN (BEAKER) (test bktb=746) 7.7 GM/DL 11.2-15.7 HEMATOCRIT (BEAKER) (test plsa=468) 23.7 % 34.1-44.9 MEAN CORPUSCULAR VOLUME (BEAKER) (test hgmo=839) 91.2 fL 79.4-94.8 MEAN CORPUSCULAR HEMOGLOBIN (BEAKER) (test 29.6 pg 25.6-32.2 ntcc=016) MEAN CORPUSCULAR HEMOGLOBIN CONC (BEAKER) (test 32.5 GM/DL 32.2-35.5 guaj=653) RED CELL DISTRIBUTION WIDTH (BEAKER) (test 14.9 % 11.7-14.4 wxgj=494) PLATELET COUNT (BEAKER) (test bflg=307) 143 K/CU MM 150-450 MEAN PLATELET VOLUME (BEAKER) (test ilwl=259) 10.5 fL 9.4-12.3 NUCLEATED RED BLOOD CELLS (BEAKER) (test 0 /100 WBC 0-0 cmsj=278) NEUTROPHILS RELATIVE PERCENT (BEAKER) (test 80 % uotx=438) LYMPHOCYTES RELATIVE PERCENT (BEAKER) (test 9 % fsat=915) MONOCYTES RELATIVE PERCENT (BEAKER) (test 6 % fjqe=591) EOSINOPHILS RELATIVE PERCENT (BEAKER) (test 4 % fkxd=830) BASOPHILS RELATIVE PERCENT (BEAKER) (test 1 % fsmc=913) NEUTROPHILS ABSOLUTE COUNT (BEAKER) (test 10.84 K/ L 1.56-6.13 mhgz=423) LYMPHOCYTES ABSOLUTE COUNT (BEAKER) (test 1.16 K/ L 1.18-3.74 mfel=195) MONOCYTES ABSOLUTE COUNT (BEAKER) (test 0.85 K/ L 0.24-0.36 psjq=926) EOSINOPHILS ABSOLUTE COUNT (BEAKER) (test 0.56 K/ L 0.04-0.36 ypie=542) BASOPHILS ABSOLUTE COUNT (BEAKER) (test 0.07 K/ L 0.01-0.08 zidg=938) IMMATURE GRANULOCYTES-RELATIVE PERCENT (BEAKER) 1 % 0-1 (test grzu=1587) POCT-GLUCOSE [id number] 20:58:00 Test Item Value Reference Range Comments POC-GLUCOSE METER (BEAKER) 114 mg/dL 70-110 TESTED AT [address] (test ybik=1851) [place] [address] POCT-GLUCOSE [id number] 11:44:00 Test Item Value Reference Range Comments POC-GLUCOSE METER (BEAKER) 160 mg/dL 70-110 TESTED AT [address] (test wkpg=6686) [place] [address] RAD, CHEST, 1 VIEW, NON [id number] 08:50:00Reason for exam:->post extubationShould this be performed at the bedside?->YesFINAL REPORT Follow up Chest radiograph Clinical History: Post extubationComparison: February 04, 2019Views: One Chest x-ray:The cardiac and mediastinal silhouettes are unchanged. There is no evidence of a pneumothorax. There is no evidence of a pleural effusion. There is no evidence of overt cardiac failure. There is no evidence of a focal parenchymal opacity. A tunneled right internal jugular Ildefonso split dialysis catheter visualized. Impression:Mild increase in pulmonaryvascular congestion Signed: Kavitha Dalton MDReport Verified Date/Time: 02/05/2019 08:50:57 Reading Location: [facility] Radiology Reading Room POCT-GLUCOSE [id number] 07:33:00 Test Item Value Reference Range Comments POC-GLUCOSE METER (BEAKER) 147 mg/dL 70-110 TESTED AT [address] (test hooi=6548) [place] [address] [id number] 06:56:00 Test Item Value Reference Range Comments PHOSPHORUS (BEAKER) (test rgsd=907) 2.9 mg/dL 2.3-4.7 [id number] 06:56:00 Test Item Value Reference Range Comments MAGNESIUM (BEAKER) (test scdz=654) 1.7 mg/dL 1.6-2.6 COMPREHENSIVE METABOLIC [id number] 06:56:00 Test Item Value Reference Range Comments TOTAL PROTEIN (BEAKER) 6.0 gm/dL 6.0-8.3 (test lbki=683) ALBUMIN (BEAKER) (test 2.5 g/dL 3.5-5.0 xdcp=7699) ALKALINE PHOSPHATASE 92 U/L 40-150 (BEAKER) (test icxj=920) BILIRUBIN TOTAL (BEAKER) 0.7 mg/dL 0.2-1.2 (test ddax=299) SODIUM (BEAKER) (test 138 meq/L 136-145 luxl=471) POTASSIUM (BEAKER) (test 4.5 meq/L 3.5-5.1 chlj=573) CHLORIDE (BEAKER) (test 105 meq/L 98-107 vtkh=716) CO2 (BEAKER) (test 28 meq/L 22-29 oili=528) BLOOD UREA NITROGEN 36 mg/dL 7-21 (BEAKER) (test jsry=918) CREATININE (BEAKER) (test 3.47 mg/dL 0.57-1.25 hynm=041) GLUCOSE RANDOM (BEAKER) 128 mg/dL 70-105 (test nofk=296) CALCIUM (BEAKER) (test 8.7 mg/dL 8.4-10.2 ibvy=920) AST (SGOT) (BEAKER) (test 17 U/L 5-34 gwbv=730) ALT (SGPT) (BEAKER) (test 8 U/L 6-55 peuo=734) EGFR (BEAKER) (test 16 mL/min/1.73 sq m ESTIMATED GFR IS NOT wooa=6919) ACCURATE CREATININE CLEARANCE IN PREDICTING GLOMERULAR FILTRATION RATE. ESTIMATED GFR IS NOT APPLICABLE FOR DIALYSIS PATIENTS. CBC W/PLT COUNT & AUTO [id number] 06:16:00 Test Item Value Reference Range Comments WHITE BLOOD CELL COUNT (BEAKER) (test hazb=662) 18.1 K/ L 3.5-10.5 RED BLOOD CELL COUNT (BEAKER) (test hzav=947) 2.84 M/ L 3.93-5.22 HEMOGLOBIN (BEAKER) (test cbnp=860) 8.5 GM/DL 11.2-15.7 HEMATOCRIT (BEAKER) (test gkcx=246) 25.4 % 34.1-44.9 MEAN CORPUSCULAR VOLUME (BEAKER) (test dhyb=085) 89.4 fL 79.4-94.8 MEAN CORPUSCULAR HEMOGLOBIN (BEAKER) (test 29.9 pg 25.6-32.2 edxn=016) MEAN CORPUSCULAR HEMOGLOBIN CONC (BEAKER) (test 33.5 GM/DL 32.2-35.5 kbtv=345) RED CELL DISTRIBUTION WIDTH (BEAKER) (test 15.0 % 11.7-14.4 hapn=560) PLATELET COUNT (BEAKER) (test juzp=903) 183 K/CU MM 150-450 MEAN PLATELET VOLUME (BEAKER) (test dkhd=953) 10.0 fL 9.4-12.3 NUCLEATED RED BLOOD CELLS (BEAKER) (test 0 /100 WBC 0-0 tqqu=882) NEUTROPHILS RELATIVE PERCENT (BEAKER) (test 85 % pqsf=684) LYMPHOCYTES RELATIVE PERCENT (BEAKER) (test 7 % zcni=325) MONOCYTES RELATIVE PERCENT (BEAKER) (test 5 % neck=580) EOSINOPHILS RELATIVE PERCENT (BEAKER) (test 3 % mfhc=588) BASOPHILS RELATIVE PERCENT (BEAKER) (test 0 % btvo=561) NEUTROPHILS ABSOLUTE COUNT (BEAKER) (test 15.36 K/ L 1.56-6.13 fxak=416) LYMPHOCYTES ABSOLUTE COUNT (BEAKER) (test 1.17 K/ L 1.18-3.74 tdjs=330) MONOCYTES ABSOLUTE COUNT (BEAKER) (test 0.87 K/ L 0.24-0.36 ymkp=744) EOSINOPHILS ABSOLUTE COUNT (BEAKER) (test 0.53 K/ L 0.04-0.36 iqhm=175) BASOPHILS ABSOLUTE COUNT (BEAKER) (test 0.06 K/ L 0.01-0.08 fsfb=981) IMMATURE GRANULOCYTES-RELATIVE PERCENT (BEAKER) 1 % 0-1 (test cghk=3431) HEMOGLOBIN AND [id number] 05:56:00 Test Item Value Reference Range Comments HEMOGLOBIN (BEAKER) (test lqsh=771) 8.5 GM/DL 11.2-15.7 HEMATOCRIT (BEAKER) (test exmk=549) 25.4 % 34.1-44.9 Post transfusionPOCT-GLUCOSE [id number] 21:25:00 Test Item Value Reference Range Comments POC-GLUCOSE METER (BEAKER) 185 mg/dL 70-110 TESTED AT [address] (test lrpq=5491) [facility] [address] POCT-GLUCOSE [id number] 17:17:00 Test Item Value Reference Range Comments POC-GLUCOSE METER (BEAKER) 155 mg/dL 70-110 TESTED AT [address] (test olvc=1843) [facility] [address] POCT-GLUCOSE [id number] 12:07:00 Test Item Value Reference Range Comments POC-GLUCOSE METER (BEAKER) 123 mg/dL 70-110 TESTED AT [address] (test zqss=2065) [facility] [address] POCT-GLUCOSE [id number] 08:04:00 Test Item Value Reference Range Comments POC-GLUCOSE METER (BEAKER) 108 mg/dL 70-110 TESTED AT [address] (test dsav=2783) [facility] [address] RAD, CHEST, 1 VIEW, NON [id number] 07:45:00Reason for exam:->post extubationShould this be performed at the bedside?->YesFINAL REPORT RAD, CHEST, 1 VIEW, NON DEPT INDICATION: post extubation COMPARISON: Prior day's exam FINDINGS: Portable frontal view of the chest. IMPRESSION: Support Lines: Right-sided dialysis catheter tip overlies the atriocaval junction Lungs and pleura: Trace left effusionis unchanged. Remainder of the lungs are predominantly clear. No pneumothorax.Heart and mediastinum:Stable contours. Additional findings: None. Signed: Dory Pride Verified Date/Time:02/04/2019 07:45:17 Reading Location: [facility] C013V Neuro Reading Room CBC W/PLT COUNT & AUTO [id number] 07:01 :00 Test Item Value Reference Range Comments WHITE BLOOD CELL COUNT (BEAKER) (test yvdb=449) 13.6 K/ L 3.5-10.5 RED BLOOD CELL COUNT (BEAKER) (test nxtb=188) 2.17 M/ L 3.93-5.22 HEMOGLOBIN (BEAKER) (test sixf=296) 6.4 GM/DL 11.2-15.7 HEMATOCRIT (BEAKER) (test yjbg=235) 20.0 % 34.1-44.9 MEAN CORPUSCULAR VOLUME (BEAKER) (test qnyw=341) 92.2 fL 79.4-94.8 MEAN CORPUSCULAR HEMOGLOBIN (BEAKER) (test 29.5 pg 25.6-32.2 nbwb=088) MEAN CORPUSCULAR HEMOGLOBIN CONC (BEAKER) (test 32.0 GM/DL 32.2-35.5 tpdi=827) RED CELL DISTRIBUTION WIDTH (BEAKER) (test 15.0 % 11.7-14.4 zwpy=730) PLATELET COUNT (BEAKER) (test jalu=328) 145 K/CU MM 150-450 MEAN PLATELET VOLUME (BEAKER) (test jgyr=370) 10.1 fL 9.4-12.3 NUCLEATED RED BLOOD CELLS (BEAKER) (test 0 /100 WBC 0-0 emnr=274) NEUTROPHILS RELATIVE PERCENT (BEAKER) (test 81 % mdfj=103) LYMPHOCYTES RELATIVE PERCENT (BEAKER) (test 8 % rxar=418) MONOCYTES RELATIVE PERCENT (BEAKER) (test 7 % rhku=105) EOSINOPHILS RELATIVE PERCENT (BEAKER) (test 3 % sdvl=243) BASOPHILS RELATIVE PERCENT (BEAKER) (test 0 % nrwe=560) NEUTROPHILS ABSOLUTE COUNT (BEAKER) (test 10.93 K/ L 1.56-6.13 kpcz=254) LYMPHOCYTES ABSOLUTE COUNT (BEAKER) (test 1.11 K/ L 1.18-3.74 dwcj=310) MONOCYTES ABSOLUTE COUNT (BEAKER) (test 0.97 K/ L 0.24-0.36 rgff=270) EOSINOPHILS ABSOLUTE COUNT (BEAKER) (test 0.44 K/ L 0.04-0.36 huax=101) BASOPHILS ABSOLUTE COUNT (BEAKER) (test 0.04 K/ L 0.01-0.08 sawi=118) IMMATURE GRANULOCYTES-RELATIVE PERCENT (BEAKER) 1 % 0-1 (test qmod=0084) CBC W/PLT COUNT & AUTO [id number] 05:24:00 Test Item Value Reference Range Comments WHITE BLOOD CELL COUNT (BEAKER) (test kueg=222) 13.7 K/ L 3.5-10.5 RED BLOOD CELL COUNT (BEAKER) (test znuj=077) 2.22 M/ L 3.93-5.22 HEMOGLOBIN (BEAKER) (test qeot=255) 6.5 GM/DL 11.2-15.7 HEMATOCRIT (BEAKER) (test byrl=128) 20.2 % 34.1-44.9 MEAN CORPUSCULAR VOLUME (BEAKER) (test afog=495) 91.0 fL 79.4-94.8 MEAN CORPUSCULAR HEMOGLOBIN (BEAKER) (test 29.3 pg 25.6-32.2 srul=905) MEAN CORPUSCULAR HEMOGLOBIN CONC (BEAKER) (test 32.2 GM/DL 32.2-35.5 fbsb=143) RED CELL DISTRIBUTION WIDTH (BEAKER) (test 15.1 % 11.7-14.4 ctnk=190) PLATELET COUNT (BEAKER) (test szbm=160) 151 K/CU MM 150-450 MEAN PLATELET VOLUME (BEAKER) (test tccj=791) 10.5 fL 9.4-12.3 NUCLEATED RED BLOOD CELLS (BEAKER) (test 0 /100 WBC 0-0 edjt=036) NEUTROPHILS RELATIVE PERCENT (BEAKER) (test 80 % wfmv=474) LYMPHOCYTES RELATIVE PERCENT (BEAKER) (test 8 % kflw=832) MONOCYTES RELATIVE PERCENT (BEAKER) (test 7 % erdb=021) EOSINOPHILS RELATIVE PERCENT (BEAKER) (test 3 % iihq=106) BASOPHILS RELATIVE PERCENT (BEAKER) (test 0 % wwfk=569) NEUTROPHILS ABSOLUTE COUNT (BEAKER) (test 10.99 K/ L 1.56-6.13 djnl=737) LYMPHOCYTES ABSOLUTE COUNT (BEAKER) (test 1.11 K/ L 1.18-3.74 pwir=052) MONOCYTES ABSOLUTE COUNT (BEAKER) (test 0.98 K/ L 0.24-0.36 teed=817) EOSINOPHILS ABSOLUTE COUNT (BEAKER) (test 0.45 K/ L 0.04-0.36 owtn=403) BASOPHILS ABSOLUTE COUNT (BEAKER) (test 0.04 K/ L 0.01-0.08 cdqy=178) IMMATURE GRANULOCYTES-RELATIVE PERCENT (BEAKER) 1 % 0-1 (test oxxm=0649) COMPREHENSIVE METABOLIC [id number] 05:11:00 Test Item Value Reference Range Comments TOTAL PROTEIN (BEAKER) 5.5 gm/dL 6.0-8.3 (test tgdh=100) ALBUMIN (BEAKER) (test 2.3 g/dL 3.5-5.0 fyzt=4500) ALKALINE PHOSPHATASE 84 U/L 40-150 (BEAKER) (test nwgs=590) BILIRUBIN TOTAL (BEAKER) 0.5 mg/dL 0.2-1.2 (test msfw=728) SODIUM (BEAKER) (test 141 meq/L 136-145 oawf=098) POTASSIUM (BEAKER) (test 4.3 meq/L 3.5-5.1 ybuz=973) CHLORIDE (BEAKER) (test 106 meq/L 98-107 hpto=219) CO2 (BEAKER) (test 29 meq/L 22-29 gcwe=278) BLOOD UREA NITROGEN 20 mg/dL 7-21 (BEAKER) (test yysj=692) CREATININE (BEAKER) (test 2.39 mg/dL 0.57-1.25 rljb=390) GLUCOSE RANDOM (BEAKER) 89 mg/dL 70-105 (test ybtl=807) CALCIUM (BEAKER) (test 8.4 mg/dL 8.4-10.2 nntc=234) AST (SGOT) (BEAKER) (test 16 U/L 5-34 rljk=878) ALT (SGPT) (BEAKER) (test 7 U/L 6-55 stjy=538) EGFR (BEAKER) (test 24 mL/min/1.73 sq m ESTIMATED GFR IS NOT itaf=3636) ACCURATE CREATININE CLEARANCE IN PREDICTING GLOMERULAR FILTRATION RATE. ESTIMATED GFR IS NOT APPLICABLE FOR DIALYSIS PATIENTS. [id number] 05:08:00 Test Item Value Reference Range Comments PHOSPHORUS (BEAKER) (test llli=476) 2.4 mg/dL 2.3-4.7 [id number] 05:08:00 Test Item Value Reference Range Comments MAGNESIUM (BEAKER) (test jmjs=283) 1.7 mg/dL 1.6-2.6 POCT-GLUCOSE [id number] 21:25:00 Test Item Value Reference Range Comments POC-GLUCOSE METER (BEAKER) 248 mg/dL 70-110 TESTED AT [facility] [address] [facility] (test jbpr=6912) [facility] [address] POCT-GLUCOSE [id number] 11:33:00 Test Item Value Reference Range Comments POC-GLUCOSE METER (BEAKER) 168 mg/dL 70-110 TESTED AT [place] [id number] [facility] (test txjo=5174) [facility] [address] CBC W/PLT COUNT & AUTO [id number] 09:20:00 Test Item Value Reference Range Comments WHITE BLOOD CELL COUNT (BEAKER) (test obcf=114) 19.4 K/ L 3.5-10.5 RED BLOOD CELL COUNT (BEAKER) (test zrlf=815) 2.74 M/ L 3.93-5.22 HEMOGLOBIN (BEAKER) (test xzeq=674) 8.3 GM/DL 11.2-15.7 HEMATOCRIT (BEAKER) (test pbzz=403) 24.5 % 34.1-44.9 MEAN CORPUSCULAR VOLUME (BEAKER) (test ndwb=567) 89.4 fL 79.4-94.8 MEAN CORPUSCULAR HEMOGLOBIN (BEAKER) (test 30.3 pg 25.6-32.2 kuaq=027) MEAN CORPUSCULAR HEMOGLOBIN CONC (BEAKER) (test 33.9 GM/DL 32.2-35.5 ugne=661) RED CELL DISTRIBUTION WIDTH (BEAKER) (test 15.2 % 11.7-14.4 zyvp=661) PLATELET COUNT (BEAKER) (test cwhg=561) 194 K/CU MM 150-450 MEAN PLATELET VOLUME (BEAKER) (test swot=952) 9.2 fL 9.4-12.3 NUCLEATED RED BLOOD CELLS (BEAKER) (test 0 /100 WBC 0-0 ufzr=753) NEUTROPHILS RELATIVE PERCENT (BEAKER) (test 87 % gith=033) LYMPHOCYTES RELATIVE PERCENT (BEAKER) (test 4 % usfd=890) MONOCYTES RELATIVE PERCENT (BEAKER) (test 6 % wfsy=526) EOSINOPHILS RELATIVE PERCENT (BEAKER) (test 2 % wstn=632) BASOPHILS RELATIVE PERCENT (BEAKER) (test 0 % dkte=032) NEUTROPHILS ABSOLUTE COUNT (BEAKER) (test 16.93 K/ L 1.56-6.13 pvgh=873) LYMPHOCYTES ABSOLUTE COUNT (BEAKER) (test 0.80 K/ L 1.18-3.74 vgvx=326) MONOCYTES ABSOLUTE COUNT (BEAKER) (test 1.07 K/ L 0.24-0.36 jexu=593) EOSINOPHILS ABSOLUTE COUNT (BEAKER) (test 0.31 K/ L 0.04-0.36 rynb=555) BASOPHILS ABSOLUTE COUNT (BEAKER) (test 0.07 K/ L 0.01-0.08 xdbr=621) IMMATURE GRANULOCYTES-RELATIVE PERCENT (BEAKER) 1 % 0-1 (test wulc=5622) B-TYPE NATRIURETIC FACTOR (BNP)2019-02-03 07:54:00 Test Item Value Reference Range Comments B-TYPE NATRIURETIC PEPTIDE (BEAKER) (test 3301 pg/mL 0-100 utrd=678) COMPREHENSIVE METABOLIC [id number] 07:31:00 Test Item Value Reference Range Comments TOTAL PROTEIN (BEAKER) 7.1 gm/dL 6.0-8.3 (test zjce=665) ALBUMIN (BEAKER) (test 2.9 g/dL 3.5-5.0 nmof=4103) ALKALINE PHOSPHATASE 102 U/L 40-150 (BEAKER) (test smcs=321) BILIRUBIN TOTAL (BEAKER) 0.9 mg/dL 0.2-1.2 (test iifh=094) SODIUM (BEAKER) (test 139 meq/L 136-145 ochp=384) POTASSIUM (BEAKER) (test 4.5 meq/L 3.5-5.1 jovk=368) CHLORIDE (BEAKER) (test 104 meq/L 98-107 amsj=107) CO2 (BEAKER) (test 28 meq/L 22-29 ktfy=010) BLOOD UREA NITROGEN 31 mg/dL 7-21 (BEAKER) (test amqg=412) CREATININE (BEAKER) (test 3.72 mg/dL 0.57-1.25 mnsd=780) GLUCOSE RANDOM (BEAKER) 150 mg/dL 70-105 (test zdop=257) CALCIUM (BEAKER) (test 9.4 mg/dL 8.4-10.2 oglz=532) AST (SGOT) (BEAKER) (test 19 U/L 5-34 dkad=757) ALT (SGPT) (BEAKER) (test < U/L 6-55 nitz=665) EGFR (BEAKER) (test 15 mL/min/1.73 sq m ESTIMATED GFR IS NOT pknp=2721) ACCURATE CREATININE CLEARANCE IN PREDICTING GLOMERULAR FILTRATION RATE. ESTIMATED GFR IS NOT APPLICABLE FOR DIALYSIS PATIENTS. RAD, CHEST, 1 VIEW, NON [id number] 07:31:00Reason for exam:->post extubationShould this be performed at the bedside?->YesFINAL REPORT Chest, one view. HISTORY: post extubation COMPARISON: Radiograph from 02/02/2019 IMPRESSION: Unchanged positioning of a right IJ tunneled hemodialysis catheter. Interstitial edema with mild left basilar subsegmental atelectasis. There is likely a trace, layering right pleural effusion. No pneumothorax. The cardiac silhouette is unchanged. No acute bony abnormality. Signed: Thomas Samayoa MDReport Verified Date/Time: 02/03/2019 07:31: 20 Reading Location: [address] Body Reading Room [id number] 07:29: 00 Test Item Value Reference Range Comments PHOSPHORUS (BEAKER) (test cwon=248) 3.5 mg/dL 2.3-4.7 [id number] 07:29:00 Test Item Value Reference Range Comments MAGNESIUM (BEAKER) (test cgnn=548) 2.1 mg/dL 1.6-2.6 CBC W/PLT COUNT & AUTO [id number] 06:50:00 Test Item Value Reference Range Comments WHITE BLOOD CELL COUNT (BEAKER) (test wvbz=676) 21.1 K/ L 3.5-10.5 RED BLOOD CELL COUNT (BEAKER) (test wmll=556) 3.06 M/ L 3.93-5.22 HEMOGLOBIN (BEAKER) (test uzqz=757) 9.0 GM/DL 11.2-15.7 HEMATOCRIT (BEAKER) (test rzcz=737) 27.7 % 34.1-44.9 MEAN CORPUSCULAR VOLUME (BEAKER) (test wohz=274) 90.5 fL 79.4-94.8 MEAN CORPUSCULAR HEMOGLOBIN (BEAKER) (test 29.4 pg 25.6-32.2 idoz=904) MEAN CORPUSCULAR HEMOGLOBIN CONC (BEAKER) (test 32.5 GM/DL 32.2-35.5 khjw=078) RED CELL DISTRIBUTION WIDTH (BEAKER) (test 15.5 % 11.7-14.4 syqj=740) PLATELET COUNT (BEAKER) (test hbmt=801) 214 K/CU MM 150-450 MEAN PLATELET VOLUME (BEAKER) (test slec=241) 10.2 fL 9.4-12.3 NUCLEATED RED BLOOD CELLS (BEAKER) (test 0 /100 WBC 0-0 utvt=738) NEUTROPHILS RELATIVE PERCENT (BEAKER) (test 88 % xpwi=159) LYMPHOCYTES RELATIVE PERCENT (BEAKER) (test 3 % bdjo=398) MONOCYTES RELATIVE PERCENT (BEAKER) (test 5 % fbcs=838) EOSINOPHILS RELATIVE PERCENT (BEAKER) (test 2 % yist=610) BASOPHILS RELATIVE PERCENT (BEAKER) (test 0 % mgmh=241) NEUTROPHILS ABSOLUTE COUNT (BEAKER) (test 18.67 K/ L 1.56-6.13 uqkc=227) LYMPHOCYTES ABSOLUTE COUNT (BEAKER) (test 0.72 K/ L 1.18-3.74 tqbr=514) MONOCYTES ABSOLUTE COUNT (BEAKER) (test 1.09 K/ L 0.24-0.36 odns=924) EOSINOPHILS ABSOLUTE COUNT (BEAKER) (test 0.33 K/ L 0.04-0.36 tzww=279) BASOPHILS ABSOLUTE COUNT (BEAKER) (test 0.09 K/ L 0.01-0.08 dgci=879) IMMATURE GRANULOCYTES-RELATIVE PERCENT (BEAKER) 1 % 0-1 (test qulo=1422) CALCIUM, [id number] 06:30:00 Test Item Value Reference Range Comments CALCIUM IONIZED (BEAKER) (test evyk=160) 1.19 mmol/L 1.12-1.27 PH, BLOOD (BEAKER) (test jyaq=3525) 7.36 POCT-GLUCOSE [id number] 21:28:00 Test Item Value Reference Range Comments POC-GLUCOSE METER (BEAKER) 149 mg/dL 70-110 TESTED AT [facility] [address] [facility] (test zeek=3822) [facility] [address] POCT-GLUCOSE [id number] 12:40:00 Test Item Value Reference Range Comments POC-GLUCOSE METER (BEAKER) 171 mg/dL 70-110 TESTED AT [facility] [address] [facility] (test zoab=7254) [facility] [address] POCT-GLUCOSE [id number] 09:54:00 Test Item Value Reference Range Comments POC-GLUCOSE METER (BEAKER) 148 mg/dL 70-110 TESTED AT [facility] [address] [facility] (test hkoh=4669) [facility] [address] RAD, CHEST, 1 VIEW, NON [id number] 08:14:00Reason for exam:->post extubationShould this be performed at the bedside?->YesFINAL REPORT RAD, CHEST, 1 VIEW, NON DEPT INDICATION: post extubation COMPARISON: Prior day's exam FINDINGS: Portable frontal view of the chest. IMPRESSION: Limited by patient rotation.Support Lines: Stable right IJ dual- lumen central venous catheter. Lungs and pleura: No new consolidation. Trace bilateral effusions. No pneumothorax.Heart and mediastinum: Stable contours. Additional findings: Redemonstration of at least moderate volume stool admixed with contrast at the splenic flexure. Signed: JR Mercado Robert MDReport Verified Date/Time: 02/02/2019 08:14:25 Reading Location: [facility] Radiology Reading Room Electronically signed by: JULIO Davidson 08:14 AMCOMPREHENSIVE METABOLIC [id number] 06:59:00 Test Item Value Reference Range Comments TOTAL PROTEIN (BEAKER) 5.6 gm/dL 6.0-8.3 (test bavw=744) ALBUMIN (BEAKER) (test 2.3 g/dL 3.5-5.0 xjbe=0825) ALKALINE PHOSPHATASE 78 U/L 40-150 (BEAKER) (test fuil=156) BILIRUBIN TOTAL (BEAKER) 0.4 mg/dL 0.2-1.2 (test cjdx=171) SODIUM (BEAKER) (test 142 meq/L 136-145 ihiy=454) POTASSIUM (BEAKER) (test 4.3 meq/L 3.5-5.1 cyqp=351) CHLORIDE (BEAKER) (test 107 meq/L 98-107 sqyt=132) CO2 (BEAKER) (test 30 meq/L 22-29 cmfk=998) BLOOD UREA NITROGEN 24 mg/dL 7-21 (BEAKER) (test cllc=638) CREATININE (BEAKER) (test 2.88 mg/dL 0.57-1.25 ncsy=706) GLUCOSE RANDOM (BEAKER) 98 mg/dL 70-105 (test pivl=425) CALCIUM (BEAKER) (test 8.7 mg/dL 8.4-10.2 iqrs=301) AST (SGOT) (BEAKER) (test 16 U/L 5-34 omnp=727) ALT (SGPT) (BEAKER) (test 7 U/L 6-55 levx=529) EGFR (BEAKER) (test 20 mL/min/1.73 sq m ESTIMATED GFR IS NOT lwia=9062) ACCURATE CREATININE CLEARANCE IN PREDICTING GLOMERULAR FILTRATION RATE. ESTIMATED GFR IS NOT APPLICABLE FOR DIALYSIS PATIENTS. CBC W/PLT COUNT & AUTO [id number] 06:50:00 Test Item Value Reference Range Comments WHITE BLOOD CELL COUNT (BEAKER) (test vzoz=032) 12.6 K/ L 3.5-10.5 RED BLOOD CELL COUNT (BEAKER) (test afjj=298) 2.13 M/ L 3.93-5.22 HEMOGLOBIN (BEAKER) (test fnis=844) 6.2 GM/DL 11.2-15.7 HEMATOCRIT (BEAKER) (test oafc=799) 20.0 % 34.1-44.9 MEAN CORPUSCULAR VOLUME (BEAKER) (test edwq=351) 93.9 fL 79.4-94.8 MEAN CORPUSCULAR HEMOGLOBIN (BEAKER) (test 29.1 pg 25.6-32.2 ficl=690) MEAN CORPUSCULAR HEMOGLOBIN CONC (BEAKER) (test 31.0 GM/DL 32.2-35.5 emyp=759) RED CELL DISTRIBUTION WIDTH (BEAKER) (test 15.5 % 11.7-14.4 lqmm=801) PLATELET COUNT (BEAKER) (test qcof=755) 146 K/CU MM 150-450 MEAN PLATELET VOLUME (BEAKER) (test grrg=886) 10.4 fL 9.4-12.3 NUCLEATED RED BLOOD CELLS (BEAKER) (test 0 /100 WBC 0-0 elgl=809) NEUTROPHILS RELATIVE PERCENT (BEAKER) (test 79 % gxmy=727) LYMPHOCYTES RELATIVE PERCENT (BEAKER) (test 8 % dtmt=588) MONOCYTES RELATIVE PERCENT (BEAKER) (test 9 % guyo=571) EOSINOPHILS RELATIVE PERCENT (BEAKER) (test 2 % wgkh=594) BASOPHILS RELATIVE PERCENT (BEAKER) (test 0 % tlpl=125) NEUTROPHILS ABSOLUTE COUNT (BEAKER) (test 10.03 K/ L 1.56-6.13 blkh=037) LYMPHOCYTES ABSOLUTE COUNT (BEAKER) (test 0.97 K/ L 1.18-3.74 aweo=101) MONOCYTES ABSOLUTE COUNT (BEAKER) (test 1.16 K/ L 0.24-0.36 nkax=792) EOSINOPHILS ABSOLUTE COUNT (BEAKER) (test 0.29 K/ L 0.04-0.36 ezuh=647) BASOPHILS ABSOLUTE COUNT (BEAKER) (test 0.04 K/ L 0.01-0.08 jrvo=665) IMMATURE GRANULOCYTES-RELATIVE PERCENT (BEAKER) 1 % 0-1 (test nsuv=2420) [id number] 06:49:00 Test Item Value Reference Range Comments PHOSPHORUS (BEAKER) (test kyla=063) 3.0 mg/dL 2.3-4.7 [id number] 06:49:00 Test Item Value Reference Range Comments MAGNESIUM (BEAKER) (test bfrh=194) 1.6 mg/dL 1.6-2.6 CALCIUM, [id number] 06:34:00 Test Item Value Reference Range Comments CALCIUM IONIZED (BEAKER) (test xlbp=864) 1.11 mmol/L 1.12-1.27 PH, BLOOD (BEAKER) (test xgmu=3504) 7.43 CALCIUM, [id number] 06:33:00 Test Item Value Reference Range Comments CALCIUM IONIZED (BEAKER) (test dhsi=556) 1.10 mmol/L 1.12-1.27 PH, BLOOD (BEAKER) (test pdcd=5084) 7.42 POCT-GLUCOSE [id number] 21:12:00 Test Item Value Reference Range Comments POC-GLUCOSE METER (BEAKER) 190 mg/dL 70-110 TESTED AT [address] (test rnbh=1629) [facility] [id number] POCT-GLUCOSE [id number] 17:34:00 Test Item Value Reference Range Comments POC-GLUCOSE METER (BEAKER) 108 mg/dL 70-110 TESTED AT [address] (test guzp=0372) [facility] [address] POCT-GLUCOSE [id number] 12:20:00 Test Item Value Reference Range Comments POC-GLUCOSE METER (BEAKER) 113 mg/dL 70-110 TESTED AT [address] (test eoaq=0231) [place] [id number] POCT-GLUCOSE [id number] 10:24:00 Test Item Value Reference Range Comments POC-GLUCOSE METER (BEAKER) 139 mg/dL 70-110 TESTED AT [address] (test mopa=7168) [facility] [id number] CBC W/PLT COUNT & AUTO [id number] 10:11:00 Test Item Value Reference Range Comments WHITE BLOOD CELL COUNT (BEAKER) (test xhwo=686) 14.7 K/ L 3.5-10.5 RED BLOOD CELL COUNT (BEAKER) (test qztu=609) 2.54 M/ L 3.93-5.22 HEMOGLOBIN (BEAKER) (test stat=559) 7.3 GM/DL 11.2-15.7 HEMATOCRIT (BEAKER) (test dssp=062) 23.7 % 34.1-44.9 MEAN CORPUSCULAR VOLUME (BEAKER) (test tnsa=221) 93.3 fL 79.4-94.8 MEAN CORPUSCULAR HEMOGLOBIN (BEAKER) (test 28.7 pg 25.6-32.2 efft=907) MEAN CORPUSCULAR HEMOGLOBIN CONC (BEAKER) (test 30.8 GM/DL 32.2-35.5 bivq=960) RED CELL DISTRIBUTION WIDTH (BEAKER) (test 15.1 % 11.7-14.4 opyb=302) PLATELET COUNT (BEAKER) (test pbqo=290) 108 K/CU MM 150-450 MEAN PLATELET VOLUME (BEAKER) (test odxm=318) 10.0 fL 9.4-12.3 NUCLEATED RED BLOOD CELLS (BEAKER) (test 0 /100 WBC 0-0 nsau=429) NEUTROPHILS RELATIVE PERCENT (BEAKER) (test 87 % zmio=190) LYMPHOCYTES RELATIVE PERCENT (BEAKER) (test 5 % cjbv=429) MONOCYTES RELATIVE PERCENT (BEAKER) (test 5 % ccpp=229) EOSINOPHILS RELATIVE PERCENT (BEAKER) (test 2 % ivly=132) BASOPHILS RELATIVE PERCENT (BEAKER) (test 0 % frhq=803) NEUTROPHILS ABSOLUTE COUNT (BEAKER) (test 12.69 K/ L 1.56-6.13 dhch=555) LYMPHOCYTES ABSOLUTE COUNT (BEAKER) (test 0.73 K/ L 1.18-3.74 ofzs=108) MONOCYTES ABSOLUTE COUNT (BEAKER) (test 0.66 K/ L 0.24-0.36 avwb=642) EOSINOPHILS ABSOLUTE COUNT (BEAKER) (test 0.32 K/ L 0.04-0.36 nsft=036) BASOPHILS ABSOLUTE COUNT (BEAKER) (test 0.03 K/ L 0.01-0.08 dhlv=083) IMMATURE GRANULOCYTES-RELATIVE PERCENT (BEAKER) 2 % 0-1 (test mpcg=0953) RAD, CHEST, 1 VIEW, NON [id number] 08:14:00Reason for exam:->post extubationShould this be performed at the bedside?->YesFINAL REPORT RAD, CHEST, 1 VIEW, NON DEPT INDICATION: post extubation COMPARISON: Prior day's exam FINDINGS: Portable frontal view of the chest. IMPRESSION: Support Lines: Stable right IJ central venous catheter. Lungs and pleura: No new consolidation. No pneumothorax.Heart and mediastinum: Stable contours. Additional findings: None. Signed: JR Mercado Robert MDReportVerified Date/Time: 02/01/2019 08:14:17 Reading Location: [facility] Radiology Reading Room POCT-GLUCOSE [id number] 07:27:00 Test Item Value Reference Range Comments POC-GLUCOSE METER (BEAKER) 129 mg/dL 70-110 TESTED AT [address] (test ykuf=9261) [place] [id number] POCT-GLUCOSE [id number] 21:16:00 Test Item Value Reference Range Comments POC-GLUCOSE METER (BEAKER) 247 mg/dL 70-110 TESTED AT [address] (test egxf=3344) [place] [id number] RAD, CHEST, 1 VIEW, NON [id number] 07:38:00Reason for exam:->post extubationShould this be performed at the bedside?->YesFINAL REPORT RAD, CHEST, 1 VIEW, NON DEPT INDICATION: post extubation COMPARISON: January 30, 2019 FINDINGS: Portable frontal view of the chest. IMPRESSION: Support Lines: Unchanged positioning of right IJ dual-lumen central venous catheter. Lungs and pleura: Clear lungs. No effusion. No pneumothorax.Heart and mediastinum: Unremarkable. Additional findings: None. Signed: JR Mercado Robert MDReport Verified Date/Time: 01/31/2019 07:38: 40 Reading Location: [facility] Radiology Reading Room CALCIUM, [id number] 06:46:00 Test Item Value Reference Range Comments CALCIUM IONIZED (BEAKER) (test dhel=481) 0.98 mmol/L 1.12-1.27 PH, BLOOD (BEAKER) (test yvta=9188) 7.55 COMPREHENSIVE METABOLIC [id number] 05:31:00 Test Item Value Reference Range Comments TOTAL PROTEIN (BEAKER) 5.6 gm/dL 6.0-8.3 (test fhmu=586) ALBUMIN (BEAKER) (test 2.4 g/dL 3.5-5.0 aifh=9484) ALKALINE PHOSPHATASE 80 U/L 40-150 (BEAKER) (test yebr=599) BILIRUBIN TOTAL (BEAKER) 0.4 mg/dL 0.2-1.2 (test fcyo=202) SODIUM (BEAKER) (test 142 meq/L 136-145 jlwm=166) POTASSIUM (BEAKER) (test 4.0 meq/L 3.5-5.1 yfvj=223) CHLORIDE (BEAKER) (test 108 meq/L 98-107 owtx=447) CO2 (BEAKER) (test 26 meq/L 22-29 vbyq=816) BLOOD UREA NITROGEN 25 mg/dL 7-21 (BEAKER) (test ipco=964) CREATININE (BEAKER) (test 2.63 mg/dL 0.57-1.25 qvmn=254) GLUCOSE RANDOM (BEAKER) 96 mg/dL 70-105 (test vitb=124) CALCIUM (BEAKER) (test 8.4 mg/dL 8.4-10.2 dfeb=414) AST (SGOT) (BEAKER) (test 22 U/L 5-34 vuus=561) ALT (SGPT) (BEAKER) (test 7 U/L 6-55 pegv=141) EGFR (BEAKER) (test 22 mL/min/1.73 sq m ESTIMATED GFR IS NOT sefu=1450) ACCURATE CREATININE CLEARANCE IN PREDICTING GLOMERULAR FILTRATION RATE. ESTIMATED GFR IS NOT APPLICABLE FOR DIALYSIS PATIENTS. [id number] 05:30:00 Test Item Value Reference Range Comments PHOSPHORUS (BEAKER) (test eyfe=497) 2.9 mg/dL 2.3-4.7 [id number] 05:30:00 Test Item Value Reference Range Comments MAGNESIUM (BEAKER) (test imyr=428) 1.6 mg/dL 1.6-2.6 CBC W/PLT COUNT & AUTO [id number] 05:23:00 Test Item Value Reference Range Comments WHITE BLOOD CELL COUNT (BEAKER) (test zcxc=717) 12.2 K/ L 3.5-10.5 RED BLOOD CELL COUNT (BEAKER) (test fpui=689) 2.59 M/ L 3.93-5.22 HEMOGLOBIN (BEAKER) (test idoa=368) 7.6 GM/DL 11.2-15.7 HEMATOCRIT (BEAKER) (test ztrd=088) 23.7 % 34.1-44.9 MEAN CORPUSCULAR VOLUME (BEAKER) (test uxft=176) 91.5 fL 79.4-94.8 MEAN CORPUSCULAR HEMOGLOBIN (BEAKER) (test 29.3 pg 25.6-32.2 ifxa=885) MEAN CORPUSCULAR HEMOGLOBIN CONC (BEAKER) (test 32.1 GM/DL 32.2-35.5 rimq=309) RED CELL DISTRIBUTION WIDTH (BEAKER) (test 15.2 % 11.7-14.4 etfp=378) PLATELET COUNT (BEAKER) (test vmwn=620) 171 K/CU MM 150-450 MEAN PLATELET VOLUME (BEAKER) (test wmup=642) 10.7 fL 9.4-12.3 NUCLEATED RED BLOOD CELLS (BEAKER) (test 0 /100 WBC 0-0 wxpm=991) NEUTROPHILS RELATIVE PERCENT (BEAKER) (test 78 % xcsu=841) LYMPHOCYTES RELATIVE PERCENT (BEAKER) (test 7 % pwpb=958) MONOCYTES RELATIVE PERCENT (BEAKER) (test 9 % sleb=725) EOSINOPHILS RELATIVE PERCENT (BEAKER) (test 3 % lgga=433) BASOPHILS RELATIVE PERCENT (BEAKER) (test 0 % lprj=666) NEUTROPHILS ABSOLUTE COUNT (BEAKER) (test 9.59 K/ L 1.56-6.13 yvlo=419) LYMPHOCYTES ABSOLUTE COUNT (BEAKER) (test 0.90 K/ L 1.18-3.74 cwjp=055) MONOCYTES ABSOLUTE COUNT (BEAKER) (test 1.07 K/ L 0.24-0.36 nitx=059) EOSINOPHILS ABSOLUTE COUNT (BEAKER) (test 0.40 K/ L 0.04-0.36 tmfi=921) BASOPHILS ABSOLUTE COUNT (BEAKER) (test 0.04 K/ L 0.01-0.08 whib=404) IMMATURE GRANULOCYTES-RELATIVE PERCENT (BEAKER) 2 % 0-1 (test dvuf=5110) POCT-GLUCOSE [id number] 21:52:00 Test Item Value Reference Range Comments POC-GLUCOSE METER (BEAKER) 146 mg/dL 70-110 TESTED AT [address] (test nsml=9465) [place] [id number] POCT-GLUCOSE [id number] 18:13:00 Test Item Value Reference Range Comments POC-GLUCOSE METER (BEAKER) 168 mg/dL 70-110 TESTED AT [address] (test lcqs=9041) [facility] [address] RAD, CHEST, 1 VIEW, NON [id number] 07:08:00Reason for exam:->post extubationShould this be performed at the bedside?->YesFINAL REPORT RAD, CHEST, 1 VIEW, NON DEPT INDICATION: post extubation COMPARISON: Prior day's exam FINDINGS: Portable frontal view of the chest. IMPRESSION: Support Lines: Stable right IJ dual-lumen central venous catheter. Lungs and pleura: No consolidation or effusion. No pneumothorax.Heart and mediastinum: Stable contours. Additional findings: None. Signed: JR Mercado Robert MDReport Verified Date/Time: 01/30/2019 07:08:13 Reading Location: [facility] Radiology Reading Room [id number] 05:34:00 Test Item Value Reference Range Comments FERRITIN (BEAKER) (test nupi=386) 606 ng/mL 5-275 CALCIUM, [id number] 05:26:00 Test Item Value Reference Range Comments CALCIUM IONIZED (BEAKER) (test esql=990) 1.03 mmol/L 1.12-1.27 PH, BLOOD (BEAKER) (test lqqy=2981) 7.47 IRON, TIBC, % SAT. (WITHOUT FERRITIN)2019-01-30 05:13:00 Test Item Value Reference Range Comments IRON (BEAKER) (test tbrx=804) 44.0 ug/dL 40.0-160.0 TOTAL IRON BINDING CAPACITY (BEAKER) (test 138 ug/dL 250-450 hvyf=886) IRON % SATURATION (2) (BEAKER) (test gdbm=9500) 32 % 20-55 COMPREHENSIVE METABOLIC [id number] 05:09:00 Test Item Value Reference Range Comments TOTAL PROTEIN (BEAKER) 5.8 gm/dL 6.0-8.3 (test vnnv=838) ALBUMIN (BEAKER) (test 2.5 g/dL 3.5-5.0 yxku=6417) ALKALINE PHOSPHATASE 85 U/L 40-150 (BEAKER) (test euse=369) BILIRUBIN TOTAL (BEAKER) 0.6 mg/dL 0.2-1.2 (test caet=999) SODIUM (BEAKER) (test 136 meq/L 136-145 eawm=808) POTASSIUM (BEAKER) (test 4.1 meq/L 3.5-5.1 itrq=500) CHLORIDE (BEAKER) (test 103 meq/L 98-107 kuss=983) CO2 (BEAKER) (test 24 meq/L 22-29 ebyb=852) BLOOD UREA NITROGEN 53 mg/dL 7-21 (BEAKER) (test ylff=840) CREATININE (BEAKER) (test 4.89 mg/dL 0.57-1.25 wuzr=972) GLUCOSE RANDOM (BEAKER) 98 mg/dL 70-105 (test tdab=898) CALCIUM (BEAKER) (test 8.4 mg/dL 8.4-10.2 dfwh=475) AST (SGOT) (BEAKER) (test 29 U/L 5-34 uarx=000) ALT (SGPT) (BEAKER) (test 6 U/L 6-55 mmwz=359) EGFR (BEAKER) (test 11 mL/min/1.73 sq m ESTIMATED GFR IS NOT bgke=5200) ACCURATE CREATININE CLEARANCE IN PREDICTING GLOMERULAR FILTRATION RATE. ESTIMATED GFR IS NOT APPLICABLE FOR DIALYSIS PATIENTS. [id number] 05:07:00 Test Item Value Reference Range Comments PHOSPHORUS (BEAKER) (test pigs=217) 4.6 mg/dL 2.3-4.7 [id number] 05:07:00 Test Item Value Reference Range Comments MAGNESIUM (BEAKER) (test rlhm=037) 1.7 mg/dL 1.6-2.6 CBC W/PLT COUNT & AUTO [id number] 04:57:00 Test Item Value Reference Range Comments WHITE BLOOD CELL COUNT (BEAKER) (test mcey=315) 14.3 K/ L 3.5-10.5 RED BLOOD CELL COUNT (BEAKER) (test azge=399) 2.70 M/ L 3.93-5.22 HEMOGLOBIN (BEAKER) (test qxho=268) 7.8 GM/DL 11.2-15.7 HEMATOCRIT (BEAKER) (test pmvx=389) 24.9 % 34.1-44.9 MEAN CORPUSCULAR VOLUME (BEAKER) (test ghno=910) 92.2 fL 79.4-94.8 MEAN CORPUSCULAR HEMOGLOBIN (BEAKER) (test 28.9 pg 25.6-32.2 pycl=805) MEAN CORPUSCULAR HEMOGLOBIN CONC (BEAKER) (test 31.3 GM/DL 32.2-35.5 tpoa=216) RED CELL DISTRIBUTION WIDTH (BEAKER) (test 15.2 % 11.7-14.4 vbze=987) PLATELET COUNT (BEAKER) (test fwxh=093) 236 K/CU MM 150-450 MEAN PLATELET VOLUME (BEAKER) (test ajmq=081) 9.9 fL 9.4-12.3 NUCLEATED RED BLOOD CELLS (BEAKER) (test 0 /100 WBC 0-0 trwk=558) NEUTROPHILS RELATIVE PERCENT (BEAKER) (test 79 % dvxi=116) LYMPHOCYTES RELATIVE PERCENT (BEAKER) (test 7 % fomx=681) MONOCYTES RELATIVE PERCENT (BEAKER) (test 8 % whdf=897) EOSINOPHILS RELATIVE PERCENT (BEAKER) (test 4 % gpcx=095) BASOPHILS RELATIVE PERCENT (BEAKER) (test 0 % mwxs=150) NEUTROPHILS ABSOLUTE COUNT (BEAKER) (test 11.29 K/ L 1.56-6.13 wlxj=916) LYMPHOCYTES ABSOLUTE COUNT (BEAKER) (test 1.00 K/ L 1.18-3.74 utld=453) MONOCYTES ABSOLUTE COUNT (BEAKER) (test 1.14 K/ L 0.24-0.36 fucg=975) EOSINOPHILS ABSOLUTE COUNT (BEAKER) (test 0.51 K/ L 0.04-0.36 xdpl=580) BASOPHILS ABSOLUTE COUNT (BEAKER) (test 0.05 K/ L 0.01-0.08 ytyf=378) IMMATURE GRANULOCYTES-RELATIVE PERCENT (BEAKER) 2 % 0-1 (test huwc=1319) RETICULOCYTE [id number] 04:39:00 Test Item Value Reference Range Comments RETICULOCYTE COUNT PCT (BEAKER) (test octp=653) 1.2 % 0.5-1.7 POCT-GLUCOSE [id number] 21:32:00 Test Item Value Reference Range Comments POC-GLUCOSE METER (BEAKER) 164 mg/dL 70-110 TESTED AT [address] (test mayl=5889) [place] [id number] POCT-GLUCOSE [id number] 17:52:00 Test Item Value Reference Range Comments POC-GLUCOSE METER (BEAKER) 130 mg/dL 70-110 TESTED AT [address] (test potz=0733) [place] [id number] POCT-GLUCOSE [id number] 13:09:00 Test Item Value Reference Range Comments POC-GLUCOSE METER (BEAKER) 126 mg/dL 70-110 TESTED AT [address] (test igpc=5698) [place] [id number] RAD, CHEST, 1 VIEW, NON [id number] 08:07:00Reason for exam:->post extubationShould this be performed at the bedside?->YesFINAL REPORT INDICATION: post extubation COMPARISON:January 28 TECHNIQUE: Chest radiograph, single view, portable technique. FINDINGS / IMPRESSION: Lungs are clear and heart shadow normal in size. No pneumothorax or pleural effusion demonstrated. Double lumen right internal jugular line terminates in the low SVC. Signed: Rj Rhoades MDReport Verified Date/Time: 01/29/2019 08:07:52 Reading Location: [address] Body Reading Room POCT-GLUCOSE [id number] 08:03:00 Test Item Value Reference Range Comments POC-GLUCOSE METER (BEAKER) 104 mg/dL 70-110 TESTED AT [facility] [address] [facility] (test bmqr=9280) [facility] [address] BLOOD [id number] 08:01:00 Test Item Value Reference Range Comments CULTURE (BEAKER) (test wvhx=2389) No growth in 5 days BLOOD [id number] 08:01:00 Test Item Value Reference Range Comments CULTURE (BEAKER) (test bosd=8879) No growth in 5 days [id number] 06:15:00 Test Item Value Reference Range Comments PHOSPHORUS (BEAKER) (test qktu=115) 4.2 mg/dL 2.3-4.7 [id number] 06:15:00 Test Item Value Reference Range Comments MAGNESIUM (BEAKER) (test ojbb=181) 1.5 mg/dL 1.6-2.6 COMPREHENSIVE METABOLIC [id number] 06:15:00 Test Item Value Reference Range Comments TOTAL PROTEIN (BEAKER) 5.5 gm/dL 6.0-8.3 (test cphk=837) ALBUMIN (BEAKER) (test 2.4 g/dL 3.5-5.0 nydw=4876) ALKALINE PHOSPHATASE 83 U/L 40-150 (BEAKER) (test qkix=023) BILIRUBIN TOTAL (BEAKER) 0.5 mg/dL 0.2-1.2 (test jmjn=106) SODIUM (BEAKER) (test 137 meq/L 136-145 pcnl=577) POTASSIUM (BEAKER) (test 4.1 meq/L 3.5-5.1 stqk=560) CHLORIDE (BEAKER) (test 102 meq/L 98-107 ghpb=861) CO2 (BEAKER) (test 25 meq/L 22-29 pxge=245) BLOOD UREA NITROGEN 47 mg/dL 7-21 (BEAKER) (test dniu=289) CREATININE (BEAKER) (test 4.38 mg/dL 0.57-1.25 plkl=324) GLUCOSE RANDOM (BEAKER) 88 mg/dL 70-105 (test hkjp=719) CALCIUM (BEAKER) (test 8.2 mg/dL 8.4-10.2 imgk=980) AST (SGOT) (BEAKER) (test 32 U/L 5-34 qpol=010) ALT (SGPT) (BEAKER) (test 7 U/L 6-55 jham=889) EGFR (BEAKER) (test 12 mL/min/1.73 sq m ESTIMATED GFR IS NOT vvze=5446) ACCURATE CREATININE CLEARANCE IN PREDICTING GLOMERULAR FILTRATION RATE. ESTIMATED GFR IS NOT APPLICABLE FOR DIALYSIS PATIENTS. CBC W/PLT COUNT & AUTO [id number] 05:44:00 Test Item Value Reference Range Comments WHITE BLOOD CELL COUNT (BEAKER) (test edzn=369) 13.8 K/ L 3.5-10.5 RED BLOOD CELL COUNT (BEAKER) (test rufp=085) 2.77 M/ L 3.93-5.22 HEMOGLOBIN (BEAKER) (test rsgh=803) 7.9 GM/DL 11.2-15.7 HEMATOCRIT (BEAKER) (test bxwz=425) 25.5 % 34.1-44.9 MEAN CORPUSCULAR VOLUME (BEAKER) (test wrqu=932) 92.1 fL 79.4-94.8 MEAN CORPUSCULAR HEMOGLOBIN (BEAKER) (test 28.5 pg 25.6-32.2 oxvx=616) MEAN CORPUSCULAR HEMOGLOBIN CONC (BEAKER) (test 31.0 GM/DL 32.2-35.5 aurw=997) RED CELL DISTRIBUTION WIDTH (BEAKER) (test 15.5 % 11.7-14.4 ihge=963) PLATELET COUNT (BEAKER) (test phpi=307) 185 K/CU MM 150-450 MEAN PLATELET VOLUME (BEAKER) (test knqc=540) 10.5 fL 9.4-12.3 NUCLEATED RED BLOOD CELLS (BEAKER) (test 0 /100 WBC 0-0 nqwq=487) NEUTROPHILS RELATIVE PERCENT (BEAKER) (test 78 % obzu=866) LYMPHOCYTES RELATIVE PERCENT (BEAKER) (test 8 % scft=753) MONOCYTES RELATIVE PERCENT (BEAKER) (test 8 % wrme=960) EOSINOPHILS RELATIVE PERCENT (BEAKER) (test 5 % vltx=522) BASOPHILS RELATIVE PERCENT (BEAKER) (test 0 % mdng=621) NEUTROPHILS ABSOLUTE COUNT (BEAKER) (test 10.77 K/ L 1.56-6.13 wrfk=429) LYMPHOCYTES ABSOLUTE COUNT (BEAKER) (test 1.12 K/ L 1.18-3.74 pegl=823) MONOCYTES ABSOLUTE COUNT (BEAKER) (test 1.04 K/ L 0.24-0.36 anyd=489) EOSINOPHILS ABSOLUTE COUNT (BEAKER) (test 0.62 K/ L 0.04-0.36 oyaa=113) BASOPHILS ABSOLUTE COUNT (BEAKER) (test 0.05 K/ L 0.01-0.08 kdfd=487) IMMATURE GRANULOCYTES-RELATIVE PERCENT (BEAKER) 2 % 0-1 (test joez=6556) POCT-GLUCOSE [id number] 21:16:00 Test Item Value Reference Range Comments POC-GLUCOSE METER (BEAKER) 160 mg/dL 70-110 TESTED AT [address] (test zjcc=0989) [facility] [address] POCT-GLUCOSE [id number] 18:18:00 Test Item Value Reference Range Comments POC-GLUCOSE METER (BEAKER) 195 mg/dL 70-110 TESTED AT [address] (test yong=3851) [facility] [address] POCT-GLUCOSE [id number] 16:47:00 Test Item Value Reference Range Comments POC-GLUCOSE METER (BEAKER) 131 mg/dL 70-110 TESTED AT [address] (test toei=6848) [place] [id number] POCT-GLUCOSE [id number] 12:49:00 Test Item Value Reference Range Comments POC-GLUCOSE METER (BEAKER) 114 mg/dL 70-110 TESTED AT [address] (test jxay=1762) [facility] [address] POCT-GLUCOSE [id number] 07:56:00 Test Item Value Reference Range Comments POC-GLUCOSE METER (BEAKER) 113 mg/dL 70-110 TESTED AT [facility] [address] (test ynpz=1075) [place] [address] RAD, CHEST, 1 VIEW, NON [id number] 07:24:00Reason for exam:->post extubationShould this be performed at the bedside?->YesFINAL REPORT RAD, CHEST, 1 VIEW, NON DEPT INDICATION: post extubation COMPARISON: Prior day's exam FINDINGS: Portable frontal view of the chest. IMPRESSION: Support Lines: Right IJ dual-lumen central venous catheter is stable. Lungs and pleura: Mild underinflation. No consolidation or effusion. No pneumothorax.Heart and mediastinum: Stable contours. Additional findings: None. Signed: JR Mercado Robert MDReport Verified Date/Time: 01/28/2019 07:24: 41 Reading Location: [address] Neuro Reading Room COMPREHENSIVE METABOLIC [id number] 05:44:00 Test Item Value Reference Range Comments TOTAL PROTEIN (BEAKER) 5.5 gm/dL 6.0-8.3 (test gbqt=542) ALBUMIN (BEAKER) (test 2.4 g/dL 3.5-5.0 acxo=9582) ALKALINE PHOSPHATASE 81 U/L 40-150 (BEAKER) (test xsfk=379) BILIRUBIN TOTAL (BEAKER) 0.5 mg/dL 0.2-1.2 (test pahn=913) SODIUM (BEAKER) (test 140 meq/L 136-145 onnk=522) POTASSIUM (BEAKER) (test 4.1 meq/L 3.5-5.1 rvjf=343) CHLORIDE (BEAKER) (test 103 meq/L 98-107 rtya=995) CO2 (BEAKER) (test 28 meq/L 22-29 olhu=892) BLOOD UREA NITROGEN 39 mg/dL 7-21 (BEAKER) (test nxwr=251) CREATININE (BEAKER) (test 3.86 mg/dL 0.57-1.25 zdyb=358) GLUCOSE RANDOM (BEAKER) 99 mg/dL 70-105 (test xtla=511) CALCIUM (BEAKER) (test 8.2 mg/dL 8.4-10.2 qhiw=467) AST (SGOT) (BEAKER) (test 18 U/L 5-34 swto=751) ALT (SGPT) (BEAKER) (test < U/L 6-55 oroe=473) EGFR (BEAKER) (test 14 mL/min/1.73 sq m ESTIMATED GFR IS NOT bjfu=6284) ACCURATE CREATININE CLEARANCE IN PREDICTING GLOMERULAR FILTRATION RATE. ESTIMATED GFR IS NOT APPLICABLE FOR DIALYSIS PATIENTS. [id number] 05:42:00 Test Item Value Reference Range Comments PHOSPHORUS (BEAKER) (test hdwm=276) 4.2 mg/dL 2.3-4.7 [id number] 05:42:00 Test Item Value Reference Range Comments MAGNESIUM (BEAKER) (test nqnp=094) 1.6 mg/dL 1.6-2.6 CBC W/PLT COUNT & AUTO [id number] 05:12:00 Test Item Value Reference Range Comments WHITE BLOOD CELL COUNT (BEAKER) (test vzbi=147) 14.7 K/ L 3.5-10.5 RED BLOOD CELL COUNT (BEAKER) (test oiwc=602) 2.81 M/ L 3.93-5.22 HEMOGLOBIN (BEAKER) (test ojip=733) 8.1 GM/DL 11.2-15.7 HEMATOCRIT (BEAKER) (test hdkl=555) 25.6 % 34.1-44.9 MEAN CORPUSCULAR VOLUME (BEAKER) (test tdrv=475) 91.1 fL 79.4-94.8 MEAN CORPUSCULAR HEMOGLOBIN (BEAKER) (test 28.8 pg 25.6-32.2 zdyb=101) MEAN CORPUSCULAR HEMOGLOBIN CONC (BEAKER) (test 31.6 GM/DL 32.2-35.5 dqta=210) RED CELL DISTRIBUTION WIDTH (BEAKER) (test 15.9 % 11.7-14.4 dsoh=005) PLATELET COUNT (BEAKER) (test rees=334) 138 K/CU MM 150-450 MEAN PLATELET VOLUME (BEAKER) (test bwgi=425) 10.5 fL 9.4-12.3 NUCLEATED RED BLOOD CELLS (BEAKER) (test 0 /100 WBC 0-0 zupd=811) NEUTROPHILS RELATIVE PERCENT (BEAKER) (test 79 % izng=933) LYMPHOCYTES RELATIVE PERCENT (BEAKER) (test 8 % qast=391) MONOCYTES RELATIVE PERCENT (BEAKER) (test 8 % awdx=824) EOSINOPHILS RELATIVE PERCENT (BEAKER) (test 4 % ofau=404) BASOPHILS RELATIVE PERCENT (BEAKER) (test 0 % crni=923) NEUTROPHILS ABSOLUTE COUNT (BEAKER) (test 11.53 K/ L 1.56-6.13 mwht=991) LYMPHOCYTES ABSOLUTE COUNT (BEAKER) (test 1.10 K/ L 1.18-3.74 ugmh=686) MONOCYTES ABSOLUTE COUNT (BEAKER) (test 1.19 K/ L 0.24-0.36 tysx=121) EOSINOPHILS ABSOLUTE COUNT (BEAKER) (test 0.61 K/ L 0.04-0.36 ooai=914) BASOPHILS ABSOLUTE COUNT (BEAKER) (test 0.05 K/ L 0.01-0.08 cumw=574) IMMATURE GRANULOCYTES-RELATIVE PERCENT (BEAKER) 1 % 0-1 (test uxai=4157) POCT-GLUCOSE [id number] 21:58:00 Test Item Value Reference Range Comments POC-GLUCOSE METER (BEAKER) 200 mg/dL 70-110 TESTED AT [address] (test kiky=9527) [place] [address] POCT-GLUCOSE [id number] 19:08:00 Test Item Value Reference Range Comments POC-GLUCOSE METER (BEAKER) 155 mg/dL 70-110 TESTED AT [address] (test aimv=9713) [place] [address] POCT-GLUCOSE [id number] 08:16:00 Test Item Value Reference Range Comments POC-GLUCOSE METER (BEAKER) 85 mg/dL 70-110 TESTED AT [address] (test xhfy=8104) [place] [address] RAD, CHEST, 1 VIEW, NON [id number] 07:11:00Reason for exam:->post extubationShould this be performed at the bedside?->YesFINAL REPORT Chest, one view HISTORY: Status post extubation Comparison: 2018 Findings: Lungs: Stable bilateral airspace disease. Heart: Normal in size. Pleura: No pleural effusion or pneumothorax. Bones: Unremarkable. Lines/tubes: Unchanged position of right-sided hemodialysis catheter. IMPRESSION: No significant interval change. Signed: Gary Tucker MDReport Verified Date/Time : 01/27/2019 07:11:40 Reading Location: [facility] B1 C013X Ortho Consult Reading Room COMPREHENSIVE METABOLIC [id number] 05:10:00 Test Item Value Reference Range Comments TOTAL PROTEIN (BEAKER) 5.4 gm/dL 6.0-8.3 (test ycca=975) ALBUMIN (BEAKER) (test 2.4 g/dL 3.5-5.0 synu=7407) ALKALINE PHOSPHATASE 75 U/L 40-150 (BEAKER) (test haty=048) BILIRUBIN TOTAL (BEAKER) 0.5 mg/dL 0.2-1.2 (test vhci=142) SODIUM (BEAKER) (test 138 meq/L 136-145 eplv=165) POTASSIUM (BEAKER) (test 4.3 meq/L 3.5-5.1 cfbg=140) CHLORIDE (BEAKER) (test 103 meq/L 98-107 cxne=761) CO2 (BEAKER) (test 26 meq/L 22-29 hdtj=577) BLOOD UREA NITROGEN 38 mg/dL 7-21 (BEAKER) (test tkgv=915) CREATININE (BEAKER) (test 4.03 mg/dL 0.57-1.25 mraa=096) GLUCOSE RANDOM (BEAKER) 88 mg/dL 70-105 (test jabp=004) CALCIUM (BEAKER) (test 8.2 mg/dL 8.4-10.2 ylws=692) AST (SGOT) (BEAKER) (test 18 U/L 5-34 pbfw=420) ALT (SGPT) (BEAKER) (test < U/L 6-55 qnoj=857) EGFR (BEAKER) (test 13 mL/min/1.73 sq m ESTIMATED GFR IS NOT vtpt=5041) ACCURATE CREATININE CLEARANCE IN PREDICTING GLOMERULAR FILTRATION RATE. ESTIMATED GFR IS NOT APPLICABLE FOR DIALYSIS PATIENTS. [id number] 05:04:00 Test Item Value Reference Range Comments PHOSPHORUS (BEAKER) (test ohdp=466) 4.3 mg/dL 2.3-4.7 [id number] 05:04:00 Test Item Value Reference Range Comments MAGNESIUM (BEAKER) (test uamm=368) 1.7 mg/dL 1.6-2.6 CBC W/PLT COUNT & AUTO [id number] 04:51:00 Test Item Value Reference Range Comments WHITE BLOOD CELL COUNT (BEAKER) (test mkci=384) 12.7 K/ L 3.5-10.5 RED BLOOD CELL COUNT (BEAKER) (test zppu=776) 2.97 M/ L 3.93-5.22 HEMOGLOBIN (BEAKER) (test qbas=073) 8.4 GM/DL 11.2-15.7 HEMATOCRIT (BEAKER) (test cqro=437) 26.9 % 34.1-44.9 MEAN CORPUSCULAR VOLUME (BEAKER) (test zxbz=716) 90.6 fL 79.4-94.8 MEAN CORPUSCULAR HEMOGLOBIN (BEAKER) (test 28.3 pg 25.6-32.2 mszy=747) MEAN CORPUSCULAR HEMOGLOBIN CONC (BEAKER) (test 31.2 GM/DL 32.2-35.5 pmoe=159) RED CELL DISTRIBUTION WIDTH (BEAKER) (test 16.2 % 11.7-14.4 ypov=999) PLATELET COUNT (BEAKER) (test ihgy=449) 122 K/CU MM 150-450 MEAN PLATELET VOLUME (BEAKER) (test vtvs=075) 11.0 fL 9.4-12.3 NUCLEATED RED BLOOD CELLS (BEAKER) (test 0 /100 WBC 0-0 ibxd=888) NEUTROPHILS RELATIVE PERCENT (BEAKER) (test 81 % qwen=714) LYMPHOCYTES RELATIVE PERCENT (BEAKER) (test 6 % bmqx=433) MONOCYTES RELATIVE PERCENT (BEAKER) (test 8 % rnhf=605) EOSINOPHILS RELATIVE PERCENT (BEAKER) (test 4 % otyz=685) BASOPHILS RELATIVE PERCENT (BEAKER) (test 0 % nlya=231) NEUTROPHILS ABSOLUTE COUNT (BEAKER) (test 10.22 K/ L 1.56-6.13 srua=263) LYMPHOCYTES ABSOLUTE COUNT (BEAKER) (test 0.73 K/ L 1.18-3.74 iwxs=605) MONOCYTES ABSOLUTE COUNT (BEAKER) (test 1.00 K/ L 0.24-0.36 ysiy=900) EOSINOPHILS ABSOLUTE COUNT (BEAKER) (test 0.55 K/ L 0.04-0.36 csxp=657) BASOPHILS ABSOLUTE COUNT (BEAKER) (test 0.03 K/ L 0.01-0.08 kxkd=172) IMMATURE GRANULOCYTES-RELATIVE PERCENT (BEAKER) 1 % 0-1 (test hhij=8773) [id number] 21:17:00 Test Item Value Reference Range Comments PROTIME (BEAKER) (test kkel=587) 13.9 seconds 11.7-14.7 INR (BEAKER) (test iqur=438) 1.1 <=5.9 PARTIAL THROMBOPLASTIN TIME (BEAKER) (test 45.8 seconds 22.5-36.0 dbbq=134) RECOMMENDED COUMADIN/WARFARIN INR THERAPY RANGESSTANDARD DOSE: 2.0 - 3.0 Includes: PROPHYLAXIS forvenous thrombosis, systemic embolization; TREATMENT for venous thrombosis and/or pulmonary embolus.HIGH RISK: Target INR is 2.5-3.5 for patients with mechanical heart valves.CBC W/PLT COUNT & AUTO [id number] 21:10:00 Test Item Value Reference Range Comments WHITE BLOOD CELL COUNT (BEAKER) (test khgj=936) 15.4 K/ L 3.5-10.5 RED BLOOD CELL COUNT (BEAKER) (test lhnx=592) 3.20 M/ L 3.93-5.22 HEMOGLOBIN (BEAKER) (test ceks=743) 9.2 GM/DL 11.2-15.7 HEMATOCRIT (BEAKER) (test roym=687) 28.4 % 34.1-44.9 MEAN CORPUSCULAR VOLUME (BEAKER) (test hhjw=748) 88.8 fL 79.4-94.8 MEAN CORPUSCULAR HEMOGLOBIN (BEAKER) (test 28.8 pg 25.6-32.2 gejf=036) MEAN CORPUSCULAR HEMOGLOBIN CONC (BEAKER) (test 32.4 GM/DL 32.2-35.5 gedp=482) RED CELL DISTRIBUTION WIDTH (BEAKER) (test 16.4 % 11.7-14.4 gpml=037) PLATELET COUNT (BEAKER) (test jmqx=633) 131 K/CU MM 150-450 MEAN PLATELET VOLUME (BEAKER) (test oldg=488) 11.5 fL 9.4-12.3 NUCLEATED RED BLOOD CELLS (BEAKER) (test 0 /100 WBC 0-0 queu=010) NEUTROPHILS RELATIVE PERCENT (BEAKER) (test 82 % danw=460) LYMPHOCYTES RELATIVE PERCENT (BEAKER) (test 6 % fuzs=915) MONOCYTES RELATIVE PERCENT (BEAKER) (test 7 % keuz=811) EOSINOPHILS RELATIVE PERCENT (BEAKER) (test 4 % rngd=427) BASOPHILS RELATIVE PERCENT (BEAKER) (test 0 % tkkb=186) NEUTROPHILS ABSOLUTE COUNT (BEAKER) (test 12.53 K/ L 1.56-6.13 aens=482) LYMPHOCYTES ABSOLUTE COUNT (BEAKER) (test 0.88 K/ L 1.18-3.74 wgsb=302) MONOCYTES ABSOLUTE COUNT (BEAKER) (test 1.05 K/ L 0.24-0.36 codd=237) EOSINOPHILS ABSOLUTE COUNT (BEAKER) (test 0.67 K/ L 0.04-0.36 ydnk=454) BASOPHILS ABSOLUTE COUNT (BEAKER) (test 0.03 K/ L 0.01-0.08 dfsb=656) IMMATURE GRANULOCYTES-RELATIVE PERCENT (BEAKER) 1 % 0-1 (test ijdl=1127) POCT-LACTIC ACID, [id number] 20:44:00 Test Item Value Reference Range Comments POC-LACTIC ACID, VENOUS 0.8 mmol/L 0.9-1.7 TESTED AT [address] (BEAKER) (test kotc=0605) [place] [address] [id number] 20:44:00 Test Item Value Reference Range Comments POC-HEMOGLOBIN (BEAKER) 9.2 g/dL 12.0-15.0 TESTED AT [address] (test iusj=4826) [place] [id number] AT [place] [address] POCT-BLOOD GASES, [id number] 20:43:00 Test Item Value Reference Range Comments TEMP, CELSIUS-POC (BEAKER) 37.0 (test kmey=5213) FIO2-POC (BEAKER) (test TESTED AT [address] cnfe=0853) [place] [address] PH, VENOUS-POC (BEAKER) 7.475 7.320-7.420 (test fkei=6438) PCO2, VENOUS-POC (BEAKER) 40.3 mm Hg 41.0-51.0 (test inik=0815) PO2, VENOUS-POC (BEAKER) 43.0 mm Hg 25.0-40.0 (test oblm=6637) SO2, VENOUS-POC (BEAKER) 82.0 % 40.0-70.0 (test obdm=5972) HCO3, VENOUS-POC (BEAKER) 29.7 meq/L 21.0-29.0 (test dbic=7241) BASE EXCESS, VENOUS-POC 6.0 meq/L -2.0-3.0 (BEAKER) (test flve=9384) [id number] 20:43:00 Test Item Value Reference Range Comments POC-SODIUM (BEAKER) (test 137 meq/L 135-148 TESTED AT [address] dgcr=6966) [place] [address] [id number] 20:43:00 Test Item Value Reference Range Comments POC-POTASSIUM (BEAKER) (test 5.0 meq/L 3.6-5.5 TESTED AT [address] vxel=8714) [place] [address] [id number] 20:43:00 Test Item Value Reference Range Comments POC-GLUCOSE (BEAKER) (test 120 mg/dL 70-110 TESTED AT [address] hkws=9616) [place] [address] POCT-CALCIUM [id number] 20:43:00 Test Item Value Reference Range Comments POC-CALCIUM IONIZED (BEAKER) 1.14 mmol/L 1.12-1.27 TESTED AT [address] (test ljto=1558) [place] [address] [id number] 20:43:00 Test Item Value Reference Range Comments POC-HEMATOCRIT (BEAKER) (test 27 % 36-45 TESTED AT [address] aabe=1965) [place] [address] POCT-GLUCOSE [id number] 18:18:00 Test Item Value Reference Range Comments POC-GLUCOSE METER (BEAKER) 105 mg/dL 70-110 TESTED AT [address] (test hkke=8639) [place] [address] POCT-GLUCOSE [id number] 12:30:00 Test Item Value Reference Range Comments POC-GLUCOSE METER (BEAKER) 97 mg/dL 70-110 TESTED AT [facility] [address] (test jgyv=6119) [place] [address] RAD, CHEST, 1 VIEW, NON [id number] 10:02:00Reason for exam:->post extubationShould this be performed at the bedside?->YesFINAL REPORT CLINICAL HISTORY: post extubation TECHNIQUE: 1 view of the chest. COMPARISON: 01/25/2019 IMPRESSION: The right central line is unchanged. There are no focal infiltrates or significant appearing effusions. The cardiomediastinal silhouette is magnified by technique. Signed: Carlee Lindo MDReport Verified Date/Time: 01/26/2019 10:02:54 Reading Location: [facility] Reading Room COMPREHENSIVE METABOLIC [id number] 06:30:00 Test Item Value Reference Range Comments TOTAL PROTEIN (BEAKER) 5.3 gm/dL 6.0-8.3 Specimen slightly (test hsvo=867) hemolyzed ALBUMIN (BEAKER) (test 2.4 g/dL 3.5-5.0 Specimen slightly pctw=6555) hemolyzed ALKALINE PHOSPHATASE 64 U/L 40-150 (BEAKER) (test vrvm=363) BILIRUBIN TOTAL (BEAKER) 0.6 mg/dL 0.2-1.2 Specimen slightly (test udlu=610) hemolyzed SODIUM (BEAKER) (test 138 meq/L 136-145 fdqt=810) POTASSIUM (BEAKER) (test 3.8 meq/L 3.5-5.1 Specimen slightly hgiy=696) hemolyzed CHLORIDE (BEAKER) (test 103 meq/L 98-107 wrpg=246) CO2 (BEAKER) (test 29 meq/L 22-29 nbtf=538) BLOOD UREA NITROGEN 27 mg/dL 7-21 (BEAKER) (test llkc=333) CREATININE (BEAKER) (test 3.09 mg/dL 0.57-1.25 Specimen slightly gzvt=853) hemolyzed GLUCOSE RANDOM (BEAKER) 89 mg/dL 70-105 (test rzke=072) CALCIUM (BEAKER) (test 8.1 mg/dL 8.4-10.2 uwqz=080) AST (SGOT) (BEAKER) (test 18 U/L 5-34 Specimen slightly uiid=124) hemolyzed ALT (SGPT) (BEAKER) (test < U/L 6-55 Specimen slightly dhqf=686) hemolyzed EGFR (BEAKER) (test 18 mL/min/1.73 sq m ESTIMATED GFR IS NOT hqfa=0264) ACCURATE CREATININE CLEARANCE IN PREDICTING GLOMERULAR FILTRATION RATE. ESTIMATED GFR IS NOT APPLICABLE FOR DIALYSIS PATIENTS. [id number] 06:28:00 Test Item Value Reference Range Comments MAGNESIUM (BEAKER) (test 1.6 mg/dL 1.6-2.6 Specimen slightly hemolyzed zyvg=479) [id number] 06:28:00 Test Item Value Reference Range Comments PHOSPHORUS (BEAKER) (test 3.5 mg/dL 2.3-4.7 Specimen slightly hemolyzed tqdd=483) CALCIUM, [id number] 06:18:00 Test Item Value Reference Range Comments CALCIUM IONIZED (BEAKER) (test iuvm=802) 1.01 mmol/L 1.12-1.27 PH, BLOOD (BEAKER) (test chkj=8620) 7.50 CBC W/PLT COUNT & AUTO [id number] 06:03:00 Test Item Value Reference Range Comments WHITE BLOOD CELL COUNT (BEAKER) (test kkhh=982) 12.0 K/ L 3.5-10.5 RED BLOOD CELL COUNT (BEAKER) (test tqdn=292) 3.04 M/ L 3.93-5.22 HEMOGLOBIN (BEAKER) (test efsx=934) 8.6 GM/DL 11.2-15.7 HEMATOCRIT (BEAKER) (test kxov=487) 26.9 % 34.1-44.9 MEAN CORPUSCULAR VOLUME (BEAKER) (test tuma=797) 88.5 fL 79.4-94.8 MEAN CORPUSCULAR HEMOGLOBIN (BEAKER) (test 28.3 pg 25.6-32.2 tvae=274) MEAN CORPUSCULAR HEMOGLOBIN CONC (BEAKER) (test 32.0 GM/DL 32.2-35.5 vzwz=280) RED CELL DISTRIBUTION WIDTH (BEAKER) (test 16.0 % 11.7-14.4 yuvb=929) PLATELET COUNT (BEAKER) (test cica=796) 91 K/CU MM 150-450 MEAN PLATELET VOLUME (BEAKER) (test gjad=956) 11.0 fL 9.4-12.3 NUCLEATED RED BLOOD CELLS (BEAKER) (test 0 /100 WBC 0-0 kxgq=348) NEUTROPHILS RELATIVE PERCENT (BEAKER) (test 76 % ftzh=326) LYMPHOCYTES RELATIVE PERCENT (BEAKER) (test 9 % oxyy=911) MONOCYTES RELATIVE PERCENT (BEAKER) (test 7 % pyxu=455) EOSINOPHILS RELATIVE PERCENT (BEAKER) (test 6 % fvtq=456) BASOPHILS RELATIVE PERCENT (BEAKER) (test 1 % feqt=152) NEUTROPHILS ABSOLUTE COUNT (BEAKER) (test 9.05 K/ L 1.56-6.13 qymv=006) LYMPHOCYTES ABSOLUTE COUNT (BEAKER) (test 1.10 K/ L 1.18-3.74 smps=462) MONOCYTES ABSOLUTE COUNT (BEAKER) (test uqni=876) 0.85 K/ L 0.24-0.36 EOSINOPHILS ABSOLUTE COUNT (BEAKER) (test 0.70 K/ L 0.04-0.36 qkyw=336) BASOPHILS ABSOLUTE COUNT (BEAKER) (test dpkt=868) 0.06 K/ L 0.01-0.08 IMMATURE GRANULOCYTES-RELATIVE PERCENT (BEAKER) 2 % 0-1 (test nkph=2458) CT, [id number] 00:46:00FINAL REPORT CLINICAL HISTORY: Large focal induration and swelling lower anterior abdominal wall, recent left acetabular repair, concern for hematoma FINDINGS: Multiple axial images of the abdomen and pelvis were performed after the uncomplicated administration of IV contrast. Oral contrast was not given. This exam was performed according to our departmental dose-optimizationprogram, which includes automated exposure control, adjustment of the mA and/or kV according to patient size and/or use of the iterative reconstruction technique. Comparison : CT pelvis dated 01/21/2019 Lower chest: Small bilateral pleural effusions and adjacent atelectasis versus pneumonitis. No pneumothorax. Atherosclerotic coronary artery calcification. Liver: No significant findings. Gallbladder and biliary tree: The gallbladder is distended, with a transverse diameter of 5.2 cm. High density in the dependent gallbladder lumen may reflect sludge or excreted IV contrast from a recent procedure. Spleen: No significant findings. Adrenal Glands: No significant findings. Kidneys and ureters: No significant findings. Stomach and Duodenum: No significant findings. Pancreas: No significant findings. Bowel: Colonic diverticulosis. No bowel obstruction or pneumatosis intestinalis. Appendix: Absent Bladder: No significant findings. Major vascular structures: Atherosclerotic calcifications Reproductive organs: No significant findings. Other: There is a lobulated, complex fluid collection in the subcutaneous tissues of the lower anterior abdominal wall, which demonstrates a fluid/fluid level. It measures 11.9 x 6.0 cm in cross-sectional dimension and most likely reflects a recent subcutaneous hematoma. There is no hematoma within the pelvis or retroperitoneum. There is subcutaneous edema about the abdomen and pelvis. Subcutaneous gas in the left lower quadrant anterior abdominal wall likely relates to recent postoperative status. A surgical drain is present in the left lateral pelvis adjacent to postoperative changes. Skeleton: Interval plate and screw fixation of a left acetabular fracture. IMPRESSION: 11.9 x 6.0 cm complex fluid collection in the anterior lower abdominal wall subcutaneous tissues, consistent with a hematoma. There is no active extravasation of IV contrast and the hematoma appears subacute, demonstrating a hematocrit level. No hematoma is present within the pelvis or retroperitoneum. Gallbladder hydrops. High density in the dependent gallbladder lumen may reflect sludge or excreted IV contrast from a recent procedure. Please correlate with LFTs. Right upper quadrant ultrasound can be performed, as indicated. Small bilateral pleural effusions and adjacent atelectasis versus pneumonitis. Postsurgical changes of the left pelvis. Signed: Gordon Roberts MDReport Verified Date/Time: 01/26/2019 00:46:02 Reading Location: [address] Reading Room Electronicallysigned by: GORDON ROBERTS M.D. on 01/26/2019 12:46 AMHEMOGLOBIN AND [id number] 00:02:00 Test Item Value Reference Range Comments HEMOGLOBIN (BEAKER) (test kmld=204) 9.0 GM/DL 11.2-15.7 HEMATOCRIT (BEAKER) (test fzeu=075) 26.9 % 34.1-44.9 POCT-GLUCOSE [id number] 21:49:00 Test Item Value Reference Range Comments POC-GLUCOSE METER (BEAKER) 159 mg/dL 70-110 TESTED AT [address] (test ykvg=3621) [facility] [address] POCT-GLUCOSE [id number] 12:38:00 Test Item Value Reference Range Comments POC-GLUCOSE METER (BEAKER) 163 mg/dL 70-110 TESTED AT [address] (test vjpg=0214) [facility] [address] RAD, CHEST, 1 VIEW, NON [id number] 10:18:00Reason for exam:->post extubationShould this be performed at the bedside?->YesFINAL REPORT CLINICAL HISTORY: post extubation TECHNIQUE: 1 view of the chest. COMPARISON: 01/24/2019 IMPRESSION: The right central line is unchanged. There are no infiltrates or effusions. The cardiomediastinal silhouette is magnified by technique. Signed: Carlee Lindo MDReportVerified Date/Time: 01/25 10:18:20 Reading Location: [facility]iology Reading Room POCT- GLUCOSE [id number] 08:57:00 Test Item Value Reference Range Comments POC-GLUCOSE METER (BEAKER) 117 mg/dL 70-110 TESTED AT [address] (test ngsv=2609) [facility] [address] COMPREHENSIVE METABOLIC [id number] 08:20:00 Test Item Value Reference Range Comments TOTAL PROTEIN (BEAKER) 5.7 gm/dL 6.0-8.3 (test buwf=601) ALBUMIN (BEAKER) (test 2.6 g/dL 3.5-5.0 ylvt=9589) ALKALINE PHOSPHATASE 71 U/L 40-150 (BEAKER) (test gsyy=277) BILIRUBIN TOTAL (BEAKER) 0.3 mg/dL 0.2-1.2 (test nlpg=007) SODIUM (BEAKER) (test 139 meq/L 136-145 eynm=524) POTASSIUM (BEAKER) (test 4.6 meq/L 3.5-5.1 flth=362) CHLORIDE (BEAKER) (test 102 meq/L 98-107 vnki=477) CO2 (BEAKER) (test 28 meq/L 22-29 ifid=237) BLOOD UREA NITROGEN 41 mg/dL 7-21 (BEAKER) (test prcb=325) CREATININE (BEAKER) (test 4.56 mg/dL 0.57-1.25 kylm=875) GLUCOSE RANDOM (BEAKER) 105 mg/dL 70-105 (test heme=585) CALCIUM (BEAKER) (test 8.3 mg/dL 8.4-10.2 ifpb=447) AST (SGOT) (BEAKER) (test 20 U/L 5-34 clxr=379) ALT (SGPT) (BEAKER) (test < U/L 6-55 dful=402) EGFR (BEAKER) (test 12 mL/min/1.73 sq m ESTIMATED GFR IS NOT ikzz=7821) ACCURATE CREATININE CLEARANCE IN PREDICTING GLOMERULAR FILTRATION RATE. ESTIMATED GFR IS NOT APPLICABLE FOR DIALYSIS PATIENTS. [id number] 08:18:00 Test Item Value Reference Range Comments PHOSPHORUS (BEAKER) (test qxvq=967) 4.7 mg/dL 2.3-4.7 [id number] 08:18:00 Test Item Value Reference Range Comments MAGNESIUM (BEAKER) (test uvry=784) 2.0 mg/dL 1.6-2.6 CBC W/PLT COUNT & AUTO [id number] 06:36:00 Test Item Value Reference Range Comments WHITE BLOOD CELL COUNT (BEAKER) (test rxja=154) 10.9 K/ L 3.5-10.5 RED BLOOD CELL COUNT (BEAKER) (test uykb=026) 2.32 M/ L 3.93-5.22 HEMOGLOBIN (BEAKER) (test zfgq=793) 6.7 GM/DL 11.2-15.7 HEMATOCRIT (BEAKER) (test jbys=168) 21.2 % 34.1-44.9 MEAN CORPUSCULAR VOLUME (BEAKER) (test jgtm=568) 91.4 fL 79.4-94.8 MEAN CORPUSCULAR HEMOGLOBIN (BEAKER) (test 28.9 pg 25.6-32.2 comb=585) MEAN CORPUSCULAR HEMOGLOBIN CONC (BEAKER) (test 31.6 GM/DL 32.2-35.5 cmvc=446) RED CELL DISTRIBUTION WIDTH (BEAKER) (test 16.6 % 11.7-14.4 fmqo=993) PLATELET COUNT (BEAKER) (test jcbp=364) 109 K/CU MM 150-450 MEAN PLATELET VOLUME (BEAKER) (test kxzf=654) 11.0 fL 9.4-12.3 NUCLEATED RED BLOOD CELLS (BEAKER) (test 0 /100 WBC 0-0 fgbl=026) NEUTROPHILS RELATIVE PERCENT (BEAKER) (test 79 % jsbm=519) LYMPHOCYTES RELATIVE PERCENT (BEAKER) (test 9 % dbmz=004) MONOCYTES RELATIVE PERCENT (BEAKER) (test 6 % wuph=062) EOSINOPHILS RELATIVE PERCENT (BEAKER) (test 5 % mizo=341) BASOPHILS RELATIVE PERCENT (BEAKER) (test 0 % wcrf=684) NEUTROPHILS ABSOLUTE COUNT (BEAKER) (test 8.64 K/ L 1.56-6.13 fxpu=806) LYMPHOCYTES ABSOLUTE COUNT (BEAKER) (test 0.97 K/ L 1.18-3.74 exft=687) MONOCYTES ABSOLUTE COUNT (BEAKER) (test 0.60 K/ L 0.24-0.36 jjln=737) EOSINOPHILS ABSOLUTE COUNT (BEAKER) (test 0.52 K/ L 0.04-0.36 dsrc=049) BASOPHILS ABSOLUTE COUNT (BEAKER) (test 0.03 K/ L 0.01-0.08 lndg=834) IMMATURE GRANULOCYTES-RELATIVE PERCENT (BEAKER) 1 % 0-1 (test oddk=3342) CALCIUM, [id number] 06:35:00 Test Item Value Reference Range Comments CALCIUM IONIZED (BEAKER) (test wrau=111) 1.01 mmol/L 1.12-1.27 PH, BLOOD (BEAKER) (test oxqy=7382) 7.46 BLOOD [id number] 20:01:00 Test Item Value Reference Range Comments CULTURE (BEAKER) (test ltxe=4390) No growth in 5 days BLOOD [id number] 20:01:00 Test Item Value Reference Range Comments CULTURE (BEAKER) (test xmcv=7234) No growth in 5 days POCT-GLUCOSE [id number] 19:39:00 Test Item Value Reference Range Comments POC-GLUCOSE METER (BEAKER) 181 mg/dL 70-110 TESTED AT [facility] [address] [facility] (test elal=9368) [facility] [address] CBC W/PLT COUNT & AUTO [id number] 18:18:00 Test Item Value Reference Range Comments WHITE BLOOD CELL COUNT (BEAKER) (test bljr=333) 13.7 K/ L 3.5-10.5 RED BLOOD CELL COUNT (BEAKER) (test cblk=214) 2.38 M/ L 3.93-5.22 HEMOGLOBIN (BEAKER) (test kdyb=943) 6.8 GM/DL 11.2-15.7 HEMATOCRIT (BEAKER) (test uewg=906) 21.4 % 34.1-44.9 MEAN CORPUSCULAR VOLUME (BEAKER) (test vatw=601) 89.9 fL 79.4-94.8 MEAN CORPUSCULAR HEMOGLOBIN (BEAKER) (test 28.6 pg 25.6-32.2 ljse=090) MEAN CORPUSCULAR HEMOGLOBIN CONC (BEAKER) (test 31.8 GM/DL 32.2-35.5 gzyx=112) RED CELL DISTRIBUTION WIDTH (BEAKER) (test 16.4 % 11.7-14.4 klxx=808) PLATELET COUNT (BEAKER) (test wjux=246) 108 K/CU MM 150-450 MEAN PLATELET VOLUME (BEAKER) (test gwxx=111) 10.9 fL 9.4-12.3 NUCLEATED RED BLOOD CELLS (BEAKER) (test 0 /100 WBC 0-0 mndz=960) NEUTROPHILS RELATIVE PERCENT (BEAKER) (test 87 % jdxx=942) LYMPHOCYTES RELATIVE PERCENT (BEAKER) (test 5 % btsd=697) MONOCYTES RELATIVE PERCENT (BEAKER) (test 3 % oyia=617) EOSINOPHILS RELATIVE PERCENT (BEAKER) (test 4 % ayju=513) BASOPHILS RELATIVE PERCENT (BEAKER) (test 0 % werg=939) NEUTROPHILS ABSOLUTE COUNT (BEAKER) (test 11.89 K/ L 1.56-6.13 oogo=027) LYMPHOCYTES ABSOLUTE COUNT (BEAKER) (test 0.66 K/ L 1.18-3.74 wseu=925) MONOCYTES ABSOLUTE COUNT (BEAKER) (test 0.47 K/ L 0.24-0.36 rggu=184) EOSINOPHILS ABSOLUTE COUNT (BEAKER) (test 0.48 K/ L 0.04-0.36 vjqv=117) BASOPHILS ABSOLUTE COUNT (BEAKER) (test 0.02 K/ L 0.01-0.08 yrpv=014) IMMATURE GRANULOCYTES-RELATIVE PERCENT (BEAKER) 1 % 0-1 (test jryi=6641) POCT-GLUCOSE [id number] 18:15:00 Test Item Value Reference Range Comments POC-GLUCOSE METER (BEAKER) 198 mg/dL 70-110 TESTED AT [address] (test jutp=2082) [facility] [address] HEMOGLOBIN AND [id number] 17:20:00 Test Item Value Reference Range Comments HEMOGLOBIN (BEAKER) (test xjjm=463) 6.7 GM/DL 11.2-15.7 HEMATOCRIT (BEAKER) (test cnfj=243) 21.6 % 34.1-44.9 POCT-GLUCOSE [id number] 16:28:00 Test Item Value Reference Range Comments POC-GLUCOSE METER (BEAKER) 143 mg/dL 70-110 TESTED AT [address] (test mlww=9250) [facility] [address] POCT-GLUCOSE [id number] 12:06:00 Test Item Value Reference Range Comments POC-GLUCOSE METER (BEAKER) 139 mg/dL 70-110 TESTED AT [address] (test owzj=5519) [facility] [address] [id number] 09:03:00 Test Item Value Reference Range Comments AMMONIA (BEAKER) (test cfww=277) 18 mol/L 18-72 RAD, CHEST, 1 VIEW, NON [id number] 08:38:00Reason for exam:->post extubationShould this be performed at the bedside?->YesFINAL REPORT CLINICAL HISTORY: post extubation TECHNIQUE: 1 view of the chest. COMPARISON: 01/23/2019 IMPRESSION: The right central line is unchanged. Medial left lung base consolidation is unchanged. There is no increasing pleural fluid. The cardiomediastinal silhouette is magnified by technique. Signed: Carlee Lindo MDReport Verified Date/Time: 01/24/2019 08:38:05 Reading Location: [facility] Radiology Reading Room COMPREHENSIVE METABOLIC [id number] 08:21:00 Test Item Value Reference Range Comments TOTAL PROTEIN (BEAKER) 6.0 gm/dL 6.0-8.3 (test pzuc=196) ALBUMIN (BEAKER) (test 2.9 g/dL 3.5-5.0 hllm=7286) ALKALINE PHOSPHATASE 71 U/L 40-150 (BEAKER) (test owox=542) BILIRUBIN TOTAL (BEAKER) 0.5 mg/dL 0.2-1.2 (test eyni=702) SODIUM (BEAKER) (test 137 meq/L 136-145 pprv=344) POTASSIUM (BEAKER) (test 4.2 meq/L 3.5-5.1 fdwy=662) CHLORIDE (BEAKER) (test 100 meq/L 98-107 ijqs=418) CO2 (BEAKER) (test 27 meq/L 22-29 hopf=691) BLOOD UREA NITROGEN 23 mg/dL 7-21 (BEAKER) (test sfmh=901) CREATININE (BEAKER) (test 3.43 mg/dL 0.57-1.25 lknp=170) GLUCOSE RANDOM (BEAKER) 123 mg/dL 70-105 (test zwcs=300) CALCIUM (BEAKER) (test 8.1 mg/dL 8.4-10.2 roeg=495) AST (SGOT) (BEAKER) (test 21 U/L 5-34 gwxz=136) ALT (SGPT) (BEAKER) (test < U/L 6-55 unnl=373) EGFR (BEAKER) (test 16 mL/min/1.73 sq m ESTIMATED GFR IS NOT lpnl=7513) ACCURATE CREATININE CLEARANCE IN PREDICTING GLOMERULAR FILTRATION RATE. ESTIMATED GFR IS NOT APPLICABLE FOR DIALYSIS PATIENTS. [id number] 08:12:00 Test Item Value Reference Range Comments PHOSPHORUS (BEAKER) (test hplj=895) 4.3 mg/dL 2.3-4.7 [id number] 08:12:00 Test Item Value Reference Range Comments MAGNESIUM (BEAKER) (test gsgz=580) 1.8 mg/dL 1.6-2.6 VITAMIN B12 AND [id number] 06:28:00 Test Item Value Reference Range Comments VITAMIN B12 (BEAKER) (test xqwe=755) 1321 pg/mL 213-816 FOLATE (BEAKER) (test mfgo=497) 5.2 ng/mL >=7.0 TSH/FREE T4 IF [id number] 06:15:00 Test Item Value Reference Range Comments THYROID STIMULATING HORMONE (BEAKER) (test 3.79 uIU/mL 0.35-4.94 brzj=301) PROTHROMBIN [id number] 05:41:00 Test Item Value Reference Range Comments PROTIME (BEAKER) (test ygti=399) 14.5 seconds 11.7-14.7 INR (BEAKER) (test vapa=227) 1.2 <=5.9 RECOMMENDED COUMADIN/WARFARIN INR THERAPY RANGESSTANDARD DOSE: 2.0 - 3.0 Includes: PROPHYLAXIS forvenous thrombosis, systemic embolization; TREATMENT for venous thrombosis and/or pulmonary embolus.HIGH RISK: Target INR is 2.5-3.5 for patients with mechanical heart valves.CBC W/PLT COUNT & AUTO [id number] 05:28:00 Test Item Value Reference Range Comments WHITE BLOOD CELL COUNT (BEAKER) (test fxwh=200) 14.0 K/ L 3.5-10.5 RED BLOOD CELL COUNT (BEAKER) (test fttl=137) 2.43 M/ L 3.93-5.22 HEMOGLOBIN (BEAKER) (test ulad=664) 7.0 GM/DL 11.2-15.7 HEMATOCRIT (BEAKER) (test mrbl=180) 22.2 % 34.1-44.9 MEAN CORPUSCULAR VOLUME (BEAKER) (test jikt=031) 91.4 fL 79.4-94.8 MEAN CORPUSCULAR HEMOGLOBIN (BEAKER) (test 28.8 pg 25.6-32.2 wwmr=466) MEAN CORPUSCULAR HEMOGLOBIN CONC (BEAKER) (test 31.5 GM/DL 32.2-35.5 bmmy=505) RED CELL DISTRIBUTION WIDTH (BEAKER) (test 16.5 % 11.7-14.4 zsmr=338) PLATELET COUNT (BEAKER) (test ujmb=512) 90 K/CU MM 150-450 MEAN PLATELET VOLUME (BEAKER) (test sbul=504) 10.7 fL 9.4-12.3 NUCLEATED RED BLOOD CELLS (BEAKER) (test 0 /100 WBC 0-0 fdea=341) NEUTROPHILS RELATIVE PERCENT (BEAKER) (test 84 % sgrq=672) LYMPHOCYTES RELATIVE PERCENT (BEAKER) (test 6 % pcyz=818) MONOCYTES RELATIVE PERCENT (BEAKER) (test 5 % qxoh=550) EOSINOPHILS RELATIVE PERCENT (BEAKER) (test 3 % fgci=220) BASOPHILS RELATIVE PERCENT (BEAKER) (test 0 % zwss=903) NEUTROPHILS ABSOLUTE COUNT (BEAKER) (test 11.82 K/ L 1.56-6.13 jcsm=090) LYMPHOCYTES ABSOLUTE COUNT (BEAKER) (test 0.87 K/ L 1.18-3.74 shsv=040) MONOCYTES ABSOLUTE COUNT (BEAKER) (test fvrz=061) 0.69 K/ L 0.24-0.36 EOSINOPHILS ABSOLUTE COUNT (BEAKER) (test 0.47 K/ L 0.04-0.36 qugx=699) BASOPHILS ABSOLUTE COUNT (BEAKER) (test iegf=569) 0.03 K/ L 0.01-0.08 IMMATURE GRANULOCYTES-RELATIVE PERCENT (BEAKER) 1 % 0-1 (test tqwj=9532) URINALYSIS W/ REFLEX URINE [id number] 02:53:00 Test Item Value Reference Range Comments COLOR (BEAKER) (test xmsi=287) Yellow CLARITY (BEAKER) (test wpny=238) Cloudy SPECIFIC GRAVITY UA (BEAKER) (test aevv=224) 1.013 1.001-1.035 PH UA (BEAKER) (test ksfv=103) 7.0 5.0-8.0 PROTEIN UA (BEAKER) (test dgpm=956) 300 mg/dL Negative GLUCOSE UA (BEAKER) (test arja=296) Negative Negative KETONES UA (BEAKER) (test nssl=960) Negative Negative BILIRUBIN UA (BEAKER) (test tufx=606) Negative Negative BLOOD UA (BEAKER) (test txjs=855) Moderate Negative NITRITE UA (BEAKER) (test zyjg=193) Negative Negative LEUKOCYTE ESTERASE UA (BEAKER) (test mafi=482) Large Negative UROBILINOGEN UA (BEAKER) (test hnuf=151) 0.2 mg/dL 0.2-1.0 RBC UA (BEAKER) (test ndnn=167) 15 /HPF WBC UA (BEAKER) (test oiqn=993) 687 /HPF SOURCE(BEAKER) (test lyfn=8797) CT, BRAIN, WITHOUT [id number] 00:46:00FINAL REPORT EXAM: CT head without contrast. CLINICAL HISTORY: Focal neuro deficit , new, fixed or worsening, >6 hours COMPARISON: Head CT 01/23/2019, 12:49 PM. TECHNIQUE: CT images of the head were obtained without intravenous contrast. This exam was performed according to our departmental dose optimization program which includes automated exposure control, adjustment of the mA and/or kV according to patient's size and/or use of iterative reconstructive technique. FINDINGS:There are mild white matter microvascular ischemic changes. There is a chronic right basal ganglia lacunar infarct. There is intracranial calcific atherosclerosis.There is no acute intracranial hemorrhage, extra-axial fluid collection, mass effect, herniation, hydrocephalus or large demarcated acute territorial infarct. The basal cisterns are patent. There are bilateral lens replacements. The visualized paranasal sinuses and tympanomastoid cavities are clear. The skull base and calvarium are intact. IMPRESSION: Mild white matter microvascular ischemic changes and chronic right basal ganglia lacunar infarct. No acute intracranial hemorrhage, mass effect or large demarcated acute territorial infarct. Consider MR if clinical suspicion for acute ischemia persists. Signed: [facility] Verified Date/Time: 01/24/2019 00:46: 49 Reading Location: [facility] B1 C013Y CT Body Reading Room POCT-GLUCOSE [id number] 23:21:00 Test Item Value Reference Range Comments POC-GLUCOSE METER (BEAKER) 111 mg/dL 70-110 TESTED AT [address] (test fcbu=3142) [place] [id number] POCT-GLUCOSE [id number] 18:03:00 Test Item Value Reference Range Comments POC-GLUCOSE METER (BEAKER) 141 mg/dL 70-110 TESTED AT [address] (test ffib=9091) [facility] [id number] RAD, CHEST, 1 VIEW, NON [id number] 14:38:00Reason for exam:->edemaShould this be performed at the bedside?->YesFINAL REPORT CLINICAL HISTORY: edema TECHNIQUE: 1 view of the chest. COMPARISON: 01/22/2019 IMPRESSION: The right central line is unchanged. Left lung base consolidation is again seen with a possible trace left pleural effusion. The right lung remains relatively well-aerated. Thecardiomediastinal silhouette is within normal limits for size. Signed: Carlee Lindo MDReport Verified Date/Time: 14:38:12 Reading Location: [facility] B1 [id number] Consult Reading Room CT, CTANGIO [id number] 13:43:00Reason for exam:->Symptoms onset less than 6 hours and NIHSS [address], CEREBRAL PERFUSION ANALYSIS, CT, CAROTID, ANGIO, CT, CTANGIO BRAIN INDICATION: TIA, initial screeningFocal neuro deficit, new, fixed or worsening, <6 hoursSymptom onset less than 6 hours and NIHSS 6 or greater COMPARISON: Correlation to noncontrast head CT January 21, 2019 TECHNIQUE: Rapid acquisition spiral images were obtained between the aortic arch and the cranial vertex during intravenous contrast infusion to reconstruct axial images and angiographic 3D maximum intensity projections (MIP) .Three dimensional reformatted images were created at a dedicated workstation. Precontrast images of the brain were also obtained. Perfusion imaging technique:Arterialinput function: ACAVenous outflow function: TorcularSite of normal perfusion: right anterior territory Stenosis evaluation reported in compliance with NASCET criteria. DOSE REDUCTION: Dose modulation, iterative reconstruction, and/or weight-based adjustment of the mA/kV was utilized to reduce the radiation dose to as low as reasonably achievable. FINDINGS:All examination series are limited by motion artifact. NONCONTRAST CT HEAD: Stable remote and deep white matter changes without interval infarct or hemorrhage. The duarn-white distinction and basal ganglia appear preserved. The midline is normally positioned. There is no ventriculomegaly. No abnormal extra-axial fluid is present. Osseous structures are stable. CTA BRAIN:Atherosclerotic disease is present due to a high degree in the internal carotid arteries intracranially bilaterally. There is more severe narrowing on the right within the cavernous segment where atretic opacification and caliber are noted. Middle cerebral arteries appear opacified at least to the sylvian segments. Anterior cerebral arteries and anterior communicating artery are intact. The basilar artery is intact with decreased caliber but no calcific atherosclerosis. Posterior cerebral arteries demonstrate contrast opacification beyond the quadrigeminal segments. Both posterior communicating arteries are intact. Opacification of the major dural venous sinuses is unremarkable for bolus timing. CTA NECK:Arch anatomy is conventional. Common carotid arteries demonstrate normal calibers. There is atherosclerotic disease of the bifurcations bilaterally. Motion artifact precludes precise assessment by NASCET criteria, however there is at least 50% narrowing on the right. Distal opacification is preserved in the extracranial internal carotid arteries. Vertebral arteries are grossly patent throughout the cervical course. CT PERFUSION PARAMETRIC MAPS: Motion artifact degrades imaging. There is gross symmetry within the blood volume and blood flow maps with artifact scattered both medially and peripherally. No distinct infarct core is present. There is no identifiable perfusion mismatch. IMPRESSION: Motion degraded exam. No discernible acute ischemic injury to the brain parenchyma. No intracranial hemorrhage. 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 Distal opacification is noted with no major branch occlusion arising from the [place]. 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 Within the limits of motion artifact, no infarct core or obvious perfusion mismatch is identified within the perfusion parametric maps. The examination was reviewed in real-time with feedback provided to the neurology team at 1320 hours on January 23, 2019. Signed: JR Mercado Robert MDReport Verified Date/Time: 01/23/2019 13:43:17 Reading Location: [address] Neuro Reading Room CT, CAROTID, [id number] 13:43:00Reason for exam:->Symptoms onset less than 6 hours and NIHSS [address], CEREBRAL PERFUSION ANALYSIS, CT, CAROTID, ANGIO, CT, CTANGIO BRAIN INDICATION: TIA, initial screeningFocal neuro deficit, new, fixed or worsening, <6 hoursSymptom onset less than 6 hours and NIHSS 6 or greater COMPARISON: Correlation to noncontrast head CT January 21, 2019 TECHNIQUE: Rapid acquisition spiral images were obtained between the aortic arch and the cranial vertex during intravenous contrast infusion to reconstruct axial images and angiographic 3D maximum intensity projections (MIP) .Three dimensional reformatted images were created at a dedicated workstation. Precontrast images of the brain were also obtained. Perfusion imaging technique:Arterialinput function: ACAVenous outflow function: TorcularSite of normal perfusion: right anterior territory Stenosis evaluation reported in compliance with NASCET criteria. DOSE REDUCTION: Dose modulation, iterative reconstruction, and/or weight-based adjustment of the mA/kV was utilized to reduce the radiation dose to as low as reasonably achievable. FINDINGS:All examination series are limited by motion artifact. NONCONTRAST CT HEAD: Stable remote and deep white matter changes without interval infarct or hemorrhage. The duran-white distinction and basal ganglia appear preserved. The midline is normally positioned. There is no ventriculomegaly. No abnormal extra-axial fluid is present. Osseous structures are stable. CTA BRAIN:Atherosclerotic disease is present due to a high degree in the internal carotid arteries intracranially bilaterally. There is more severe narrowing on the right within the cavernous segment where atretic opacification and caliber are noted. Middle cerebral arteries appear opacified at least to the sylvian segments. Anterior cerebral arteries and anterior communicating artery are intact. The basilar artery is intact with decreased caliber but no calcific atherosclerosis. Posterior cerebral arteries demonstrate contrast opacification beyond the quadrigeminal segments. Both posterior communicating arteries are intact. Opacification of the major dural venous sinuses is unremarkable for bolus timing. CTA NECK:Arch anatomy is conventional. Common carotid arteries demonstrate normal calibers. There is atherosclerotic disease of the bifurcations bilaterally. Motion artifact precludes precise assessment by NASCET criteria, however there is at least 50% narrowing on the right. Distal opacification is preserved in the extracranial internal carotid arteries. Vertebral arteries are grossly patent throughout the cervical course. CT PERFUSION PARAMETRIC MAPS: Motion artifact degrades imaging. There is gross symmetry within the blood volume and blood flow maps with artifact scattered both medially and peripherally. No distinct infarct core is present. There is no identifiable perfusion mismatch. IMPRESSION: Motion degraded exam. No discernible acute ischemic injury to the brain parenchyma. No intracranial hemorrhage. 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 Distal opacification is noted with no major branch occlusion arising from the [place]. 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 Within the limits of motion artifact, no infarct core or obvious perfusion mismatch is identified within the perfusion parametric maps. The examination was reviewed in real-time with feedback provided to the neurology team at 1320 hours on January 23, 2019. Signed: JR Mercado Robert MDReport Verified Date/Time: 01/23/2019 13:43:17 Reading Location: [facility] B1 C013V Neuro Reading Room CT, CEREBRAL PERFUSION [id number] 13:43:00Reason for exam:-> Symptom onset less than 6 hours and NIHSS [address], CEREBRAL PERFUSION ANALYSIS, CT, CAROTID, ANGIO, CT, CTANGIO BRAIN INDICATION: TIA, initial screeningFocal neuro deficit, new, fixed or worsening, <6 hoursSymptom onset less than 6 hours and NIHSS 6 or greater COMPARISON: Correlation to noncontrast head CT January 21, 2019 TECHNIQUE: Rapid acquisition spiral images were obtained between the aortic arch and the cranial vertex during intravenous contrast infusion to reconstruct axial images and angiographic 3D maximum intensity projections (MIP) .Three dimensional reformatted images were created at a dedicated workstation. Precontrast images of the brain were also obtained. Perfusion imaging technique:Arterialinput function: ACAVenous outflow function: TorcularSite of normal perfusion: right anterior territory Stenosis evaluation reported in compliance with NASCET criteria. DOSE REDUCTION: Dose modulation, iterative reconstruction, and/or weight-based adjustment of the mA/kV was utilized to reduce the radiation dose to as low as reasonably achievable. FINDINGS:All examination series are limited by motion artifact. NONCONTRAST CT HEAD: Stable remote and deep white matter changes without interval infarct or hemorrhage. The duran-white distinction and basal ganglia appear preserved. The midline is normally positioned. There is no ventriculomegaly. No abnormal extra-axial fluid is present. Osseous structures are stable. CTA BRAIN:Atherosclerotic disease is present due to a high degree in the internal carotid arteries intracranially bilaterally. There is more severe narrowing on the right within the cavernous segment where atretic opacification and caliber are noted. Middle cerebral arteries appear opacified at least to the sylvian segments. Anterior cerebral arteries and anterior communicating artery are intact. The basilar artery is intact with decreased caliber but no calcific atherosclerosis. Posterior cerebral arteries demonstrate contrast opacification beyond the quadrigeminal segments. Both posterior communicating arteries are intact. Opacification of the major dural venous sinuses is unremarkable for bolus timing. CTA NECK:Arch anatomy is conventional. Common carotid arteries demonstrate normal calibers. There is atherosclerotic disease of the bifurcations bilaterally. Motion artifact precludes precise assessment by NASCET criteria, however there is at least 50% narrowing on the right. Distal opacification is preserved in the extracranial internal carotid arteries. Vertebral arteries are grossly patent throughout the cervical course. CT PERFUSION PARAMETRIC MAPS: Motion artifact degrades imaging. There is gross symmetry within the blood volume and blood flow maps with artifact scattered both medially and peripherally. No distinct infarct core is present. There is no identifiable perfusion mismatch. IMPRESSION: Motion degraded exam. No discernible acute ischemic injury to the brain parenchyma. No intracranial hemorrhage. 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 Distal opacification is noted with no major branch occlusion arising from the [place]. 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 Within the limits of motion artifact, no infarct core or obvious perfusion mismatch is identified within the perfusion parametric maps. The examination was reviewed in real-time with feedback provided to the neurology team at 1320 hours on January 23, 2019. Signed: JR Mercado Robert MDReport Verified Date/Time: 01/23/2019 13:43:17 Reading Location: [address] Neuro Reading Room BLOOD GAS, [id number] 12:48:00 Test Item Value Reference Range Comments PH ARTERIAL (BEAKER) (test jimc=864) 7.52 7.35-7.45 PCO2 ARTERIAL (BEAKER) (test gvda=472) 37 mmHg 35-45 PO2 ARTERIAL (BEAKER) (test pnvj=196) 115 mmHg 80-90 O2 SATURATION ARTERIAL (BEAKER) (test btus=484) 98.6 % 96.0-97.0 HCO3 ARTERIAL (BEAKER) (test llhm=145) 30 mmol/L 21-29 BASE EXCESS ARTERIAL (BEAKER) (test rqao=371) 6.5 mmol/L -2.0-3.0 PATIENT TEMPERATURE (BEAKER) (test gjlp=0994) 36.9 C FIO2 (BEAKER) (test pclj=4908) 21.0 % BLOOD [id number] 12:01:00 Test Item Value Reference Range Comments CULTURE (BEAKER) (test hlwy=6730) No growth in 5 days BLOOD [id number] 12:01:00 Test Item Value Reference Range Comments CULTURE (BEAKER) (test xgxv=1194) No growth in 5 days POCT-GLUCOSE [id number] 11:47:00 Test Item Value Reference Range Comments POC-GLUCOSE METER (BEAKER) 107 mg/dL 70-110 TESTED AT [facility] [address] [facility] (test amyn=4621) [facility] [address] POCT-GLUCOSE [id number] 10:34:00 Test Item Value Reference Range Comments POC-GLUCOSE METER (BEAKER) 94 mg/dL 70-110 TESTED AT [facility] [address] [facility] (test ofsz=2773) [facility] [address] COMPREHENSIVE METABOLIC [id number] 06:33:00 Test Item Value Reference Range Comments TOTAL PROTEIN (BEAKER) 6.7 gm/dL 6.0-8.3 (test sxfx=081) ALBUMIN (BEAKER) (test 3.2 g/dL 3.5-5.0 rwuo=6334) ALKALINE PHOSPHATASE 72 U/L 40-150 (BEAKER) (test epzv=842) BILIRUBIN TOTAL (BEAKER) 0.5 mg/dL 0.2-1.2 (test okji=335) SODIUM (BEAKER) (test 138 meq/L 136-145 eiit=373) POTASSIUM (BEAKER) (test 5.6 meq/L 3.5-5.1 kaaa=780) CHLORIDE (BEAKER) (test 100 meq/L 98-107 sqor=511) CO2 (BEAKER) (test 26 meq/L 22-29 urpn=482) BLOOD UREA NITROGEN 51 mg/dL 7-21 (BEAKER) (test rhyk=561) CREATININE (BEAKER) (test 5.49 mg/dL 0.57-1.25 yyxy=248) GLUCOSE RANDOM (BEAKER) 115 mg/dL 70-105 (test oepl=864) CALCIUM (BEAKER) (test 8.3 mg/dL 8.4-10.2 kzlj=159) AST (SGOT) (BEAKER) (test 18 U/L 5-34 vnfg=001) ALT (SGPT) (BEAKER) (test 17 U/L 6-55 jynh=028) EGFR (BEAKER) (test 9 mL/min/1.73 sq m ESTIMATED GFR IS NOT prvw=9170) ACCURATE CREATININE CLEARANCE IN PREDICTING GLOMERULAR FILTRATION RATE. ESTIMATED GFR IS NOT APPLICABLE FOR DIALYSIS PATIENTS. [id number] 06:18:00 Test Item Value Reference Range Comments PHOSPHORUS (BEAKER) (test pawi=920) 7.1 mg/dL 2.3-4.7 [id number] 06:18:00 Test Item Value Reference Range Comments MAGNESIUM (BEAKER) (test vkha=407) 2.0 mg/dL 1.6-2.6 CBC W/PLT COUNT & AUTO [id number] 06:05:00 Test Item Value Reference Range Comments WHITE BLOOD CELL COUNT (BEAKER) (test fkkd=168) 15.5 K/ L 3.5-10.5 RED BLOOD CELL COUNT (BEAKER) (test ikcy=953) 3.03 M/ L 3.93-5.22 HEMOGLOBIN (BEAKER) (test wnvn=447) 8.5 GM/DL 11.2-15.7 HEMATOCRIT (BEAKER) (test vlos=881) 27.1 % 34.1-44.9 MEAN CORPUSCULAR VOLUME (BEAKER) (test iaog=200) 89.4 fL 79.4-94.8 MEAN CORPUSCULAR HEMOGLOBIN (BEAKER) (test 28.1 pg 25.6-32.2 qbew=163) MEAN CORPUSCULAR HEMOGLOBIN CONC (BEAKER) (test 31.4 GM/DL 32.2-35.5 srcf=124) RED CELL DISTRIBUTION WIDTH (BEAKER) (test 16.8 % 11.7-14.4 hzke=181) PLATELET COUNT (BEAKER) (test fnwj=578) 140 K/CU MM 150-450 MEAN PLATELET VOLUME (BEAKER) (test addq=127) 10.6 fL 9.4-12.3 NUCLEATED RED BLOOD CELLS (BEAKER) (test 0 /100 WBC 0-0 qxiw=409) NEUTROPHILS RELATIVE PERCENT (BEAKER) (test 87 % ggnh=021) LYMPHOCYTES RELATIVE PERCENT (BEAKER) (test 5 % mewe=936) MONOCYTES RELATIVE PERCENT (BEAKER) (test 6 % svub=083) EOSINOPHILS RELATIVE PERCENT (BEAKER) (test 1 % qavu=269) BASOPHILS RELATIVE PERCENT (BEAKER) (test 0 % ezrk=693) NEUTROPHILS ABSOLUTE COUNT (BEAKER) (test 13.58 K/ L 1.56-6.13 ibxh=744) LYMPHOCYTES ABSOLUTE COUNT (BEAKER) (test 0.71 K/ L 1.18-3.74 qfqr=518) MONOCYTES ABSOLUTE COUNT (BEAKER) (test 0.98 K/ L 0.24-0.36 beeq=284) EOSINOPHILS ABSOLUTE COUNT (BEAKER) (test 0.11 K/ L 0.04-0.36 juwy=491) BASOPHILS ABSOLUTE COUNT (BEAKER) (test 0.05 K/ L 0.01-0.08 rhwa=481) IMMATURE GRANULOCYTES-RELATIVE PERCENT (BEAKER) 1 % 0-1 (test zlwg=9609) CALCIUM, [id number] 05:50:00 Test Item Value Reference Range Comments CALCIUM IONIZED (BEAKER) (test zunb=785) 1.00 mmol/L 1.12-1.27 PH, BLOOD (BEAKER) (test asyz=7727) 7.35 POCT-GLUCOSE [id number] 21:50:00 Test Item Value Reference Range Comments POC-GLUCOSE METER (BEAKER) 138 mg/dL 70-110 TESTED AT [address] (test rzoj=5496) [place] [address] POCT-GLUCOSE [id number] 18:02:00 Test Item Value Reference Range Comments POC-GLUCOSE METER (BEAKER) 147 mg/dL 70-110 TESTED AT [address] (test aeme=9863) [place] [address] RAD, PELVIS, 1 OR 2 [id number] 15:58:00Reason for exam:->postop ORIFShould this be performed at the bedside?->YesFINAL REPORT CLINICAL HISTORY: postop ORIF TECHNIQUE: AP pelvis COMPARISON: 2018 IMPRESSION: The patient is status post side plate and screw fixation of comminuted fracture through the left pelvis involving the acetabulum. There is improved postsurgical alignment on the single frontal view. There is a surgical drain in place. Signed: Carlee Lindo MDReport Verified Date/Time: 01/22/2019 15:58:10 Reading Location: [facility] C013W Consult Reading Room POCT- GLUCOSE [id number] 15:40:00 Test Item Value Reference Range Comments POC-GLUCOSE METER (BEAKER) 134 mg/dL 70-110 TESTED AT [address] (test sqjp=3850) [facility] [address] [place], IMPLEMENTATION TECHNICIAN IN OR/30 MINUTE [id number] 14:40:00Reason for exam:-> left acetabulum fractureFINAL REPORT Intraoperative fluoroscopy films performed by the referring physician. Number of images: 6Fluoroscopic time: 28 seconds The films were submitted to PACS postprocedure. The radiologist was not present or involved with the procedure. An interpretation was not requested. The submitted images are nondiagnostic without real-time visualization. Please refer to the performing physician's dictation for all details regarding the procedure including the submitted images. The radiologist did not perform fluoroscopy. Signed: Carlee Lindo Verified Date/Time: 01/22/2019 14:40:54 Reading Location: [address] Consult Reading Room RAD, CHEST, 1 VIEW, NON [id number] 09:05:00Reason for exam:->post extubationShould this be performed at the bedside?->YesFINAL REPORT CLINICAL HISTORY: post extubation TECHNIQUE: 1 view of the chest. COMPARISON: 01/21/2019 IMPRESSION: The right central line is unchanged. Left lung base consolidationis unchanged. There is no increasing pleural fluid. The cardiomediastinal silhouette is magnified bytechnique. Signed : Carlee Lindo Verified Date/Time: 01/22/2019 09:05:30 Reading Location:[facility] Radiology Reading Room POCT-GLUCOSE [id number] 08:37:00 Test Item Value Reference Range Comments POC-GLUCOSE METER (BEAKER) 115 mg/dL 70-110 TESTED AT [place] [id number] [facility] (test itka=2346) [place] [id number] COMPREHENSIVE METABOLIC [id number] 06:11:00 Test Item Value Reference Range Comments TOTAL PROTEIN (BEAKER) 6.7 gm/dL 6.0-8.3 (test oevz=315) ALBUMIN (BEAKER) (test 3.2 g/dL 3.5-5.0 xwbz=5998) ALKALINE PHOSPHATASE 68 U/L 40-150 (BEAKER) (test mxei=268) BILIRUBIN TOTAL (BEAKER) 0.5 mg/dL 0.2-1.2 (test ihiq=753) SODIUM (BEAKER) (test 139 meq/L 136-145 vduo=686) POTASSIUM (BEAKER) (test 4.7 meq/L 3.5-5.1 sjhc=225) CHLORIDE (BEAKER) (test 101 meq/L 98-107 dyte=510) CO2 (BEAKER) (test 29 meq/L 22-29 ajkn=070) BLOOD UREA NITROGEN 36 mg/dL 7-21 (BEAKER) (test mlqi=959) CREATININE (BEAKER) (test 4.24 mg/dL 0.57-1.25 jejv=439) GLUCOSE RANDOM (BEAKER) 105 mg/dL 70-105 (test zjgw=198) CALCIUM (BEAKER) (test 8.4 mg/dL 8.4-10.2 zldz=014) AST (SGOT) (BEAKER) (test 16 U/L 5-34 eclu=130) ALT (SGPT) (BEAKER) (test 27 U/L 6-55 hdpq=104) EGFR (BEAKER) (test 13 mL/min/1.73 sq m ESTIMATED GFR IS NOT iyax=9344) ACCURATE CREATININE CLEARANCE IN PREDICTING GLOMERULAR FILTRATION RATE. ESTIMATED GFR IS NOT APPLICABLE FOR DIALYSIS PATIENTS. [id number] 06:10:00 Test Item Value Reference Range Comments PHOSPHORUS (BEAKER) (test ajpm=648) 5.2 mg/dL 2.3-4.7 [id number] 06:10:00 Test Item Value Reference Range Comments MAGNESIUM (BEAKER) (test vlbt=702) 2.1 mg/dL 1.6-2.6 CBC W/PLT COUNT & AUTO [id number] 05:36:00 Test Item Value Reference Range Comments WHITE BLOOD CELL COUNT (BEAKER) (test pemr=127) 11.7 K/ L 3.5-10.5 RED BLOOD CELL COUNT (BEAKER) (test yhbp=595) 2.75 M/ L 3.93-5.22 HEMOGLOBIN (BEAKER) (test hlsb=029) 8.0 GM/DL 11.2-15.7 HEMATOCRIT (BEAKER) (test fzdz=132) 25.9 % 34.1-44.9 MEAN CORPUSCULAR VOLUME (BEAKER) (test cwfe=510) 94.2 fL 79.4-94.8 MEAN CORPUSCULAR HEMOGLOBIN (BEAKER) (test 29.1 pg 25.6-32.2 nsro=930) MEAN CORPUSCULAR HEMOGLOBIN CONC (BEAKER) (test 30.9 GM/DL 32.2-35.5 qspe=143) RED CELL DISTRIBUTION WIDTH (BEAKER) (test 15.9 % 11.7-14.4 bnsk=357) PLATELET COUNT (BEAKER) (test kpnc=260) 121 K/CU MM 150-450 MEAN PLATELET VOLUME (BEAKER) (test lfxm=721) 10.9 fL 9.4-12.3 NUCLEATED RED BLOOD CELLS (BEAKER) (test 0 /100 WBC 0-0 lxnb=221) NEUTROPHILS RELATIVE PERCENT (BEAKER) (test 80 % vxas=584) LYMPHOCYTES RELATIVE PERCENT (BEAKER) (test 6 % jvec=559) MONOCYTES RELATIVE PERCENT (BEAKER) (test 7 % frka=211) EOSINOPHILS RELATIVE PERCENT (BEAKER) (test 6 % zpbg=068) BASOPHILS RELATIVE PERCENT (BEAKER) (test 0 % exwj=374) NEUTROPHILS ABSOLUTE COUNT (BEAKER) (test 9.37 K/ L 1.56-6.13 lkxw=834) LYMPHOCYTES ABSOLUTE COUNT (BEAKER) (test 0.74 K/ L 1.18-3.74 apiu=701) MONOCYTES ABSOLUTE COUNT (BEAKER) (test 0.85 K/ L 0.24-0.36 llgt=508) EOSINOPHILS ABSOLUTE COUNT (BEAKER) (test 0.64 K/ L 0.04-0.36 bhpv=899) BASOPHILS ABSOLUTE COUNT (BEAKER) (test 0.04 K/ L 0.01-0.08 hfdm=351) IMMATURE GRANULOCYTES-RELATIVE PERCENT (BEAKER) 1 % 0-1 (test vljc=5188) BLOOD [id number] 20:01:00 Test Item Value Reference Range Comments CULTURE (BEAKER) (test xigu=1020) No growth in 5 days POCT-GLUCOSE [id number] 18:30:00 Test Item Value Reference Range Comments POC-GLUCOSE METER (BEAKER) 147 mg/dL 70-110 TESTED AT [facility] [address] [facility] (test ynph=0516) [place] [id number] POCT-GLUCOSE [id number] 13:50:00 Test Item Value Reference Range Comments POC-GLUCOSE METER (BEAKER) 159 mg/dL 70-110 TESTED AT [place] [id number] [facility] (test awcn=9602) [facility] [address] RAD, PELVIS, 1 OR 2 [id number] 12:51:00Reason for exam:->s/p L distal femur traction pinFINAL REPORT TECHNIQUE: One or two views of the pelvis. INDICATION: s/p L distal femur traction pin. COMPARISON: None. FINDINGS/IMPRESSION: The alignment of the left acetabular fracture, left parasymphyseal pubic bone, left inferior pubic ramus, and left superior pubic ramus fractures is unchanged compared the prior. Calcification of the pelvic and lower extremity vasculature. Signed: Thomas Samayoa MDReport Verified Date/Time : 01/21/2019 12:51:37 Reading Location: [facility] C013Y CT Body Reading Room CT, PELVIS, WO [id number] 09:49:00FINAL REPORT CT of the pelvis without contrast History: Pelvis trauma, fx known or suspected, xray insufficient Comparisons: Radiograph dated January 21, 2019 Technique: CT of the pelvis was performed without contrast. Axial images were generated as were multiplanar reformatted images in the coronal and sagittal planes. 3 dimensional reconstructed images were generated on an independent workstation. This exam was performed according to our departmental dose optimization program which includes automated exposure control, adjustment of the mA and/or kV according to patient's size and/or use of iterative reconstructive technique. Findings: There is a comminuted fracture of the left acetabulum involving both the anterior and posterior columns. There is overall superomedial displacement of left acetabular bony fragments, and the left femur is superiorly migrated as well. There areadditional fractures involving the left superior and inferior pubic rami extending to the parasymphyseal region. An oblique fracture is seen in the left iliac wing. Bony mineralization is decreased, and mild degenerative changes are noted at the SI joints bilaterally. Hemorrhage and edema is noted along the left pelvic sidewall extending to the retroperitoneal and preperitoneal spaces. The left iliacus muscle is markedly thickened, likely containing hemorrhage. The iliopsoas, gluteus and hamstring tendons appear grossly intact. There is marked vascular calcification. Bladder, uterus and adnexa are unremarkable. Note is made of colonic diverticulosis. IMPRESSION: Extensive left pelvic fractures as described. Advanced vascular calcification. Signed: Faiza Chu MDReport Verified Date/Time: 01/21/201909:49:33 Reading Location: [address] Neuro Reading Room POCT-GLUCOSE [id number] 08:57:00 Test Item Value Reference Range Comments POC-GLUCOSE METER (BEAKER) 176 mg/dL 70-110 TESTED AT [address] (test yazm=2793) [facility] [address] CBC W/PLT COUNT & AUTO [id number] 08:19:00 Test Item Value Reference Range Comments WHITE BLOOD CELL COUNT (BEAKER) (test xxft=573) 14.3 K/ L 3.5-10.5 RED BLOOD CELL COUNT (BEAKER) (test lqty=787) 2.91 M/ L 3.93-5.22 HEMOGLOBIN (BEAKER) (test yetr=938) 8.4 GM/DL 11.2-15.7 HEMATOCRIT (BEAKER) (test nbzk=374) 27.4 % 34.1-44.9 MEAN CORPUSCULAR VOLUME (BEAKER) (test wirb=253) 94.2 fL 79.4-94.8 MEAN CORPUSCULAR HEMOGLOBIN (BEAKER) (test 28.9 pg 25.6-32.2 wwib=290) MEAN CORPUSCULAR HEMOGLOBIN CONC (BEAKER) (test 30.7 GM/DL 32.2-35.5 kyti=914) RED CELL DISTRIBUTION WIDTH (BEAKER) (test 15.8 % 11.7-14.4 erne=835) PLATELET COUNT (BEAKER) (test wquq=445) 124 K/CU MM 150-450 MEAN PLATELET VOLUME (BEAKER) (test gife=032) 10.8 fL 9.4-12.3 NUCLEATED RED BLOOD CELLS (BEAKER) (test 0 /100 WBC 0-0 xqsg=952) NEUTROPHILS RELATIVE PERCENT (BEAKER) (test 87 % owbh=929) LYMPHOCYTES RELATIVE PERCENT (BEAKER) (test 3 % iddc=577) MONOCYTES RELATIVE PERCENT (BEAKER) (test 8 % wiav=149) EOSINOPHILS RELATIVE PERCENT (BEAKER) (test 1 % ojyi=219) BASOPHILS RELATIVE PERCENT (BEAKER) (test 0 % vtfc=468) NEUTROPHILS ABSOLUTE COUNT (BEAKER) (test 12.34 K/ L 1.56-6.13 qxmy=315) LYMPHOCYTES ABSOLUTE COUNT (BEAKER) (test 0.42 K/ L 1.18-3.74 lixx=787) MONOCYTES ABSOLUTE COUNT (BEAKER) (test 1.20 K/ L 0.24-0.36 oxbv=851) EOSINOPHILS ABSOLUTE COUNT (BEAKER) (test 0.14 K/ L 0.04-0.36 kdle=618) BASOPHILS ABSOLUTE COUNT (BEAKER) (test 0.03 K/ L 0.01-0.08 damo=181) IMMATURE GRANULOCYTES-RELATIVE PERCENT (BEAKER) 1 % 0-1 (test ydux=7392) RAD, PELVIS, 1 OR 2 [id number] 08:17:00Reason for exam:->L acetabulum fxFINAL REPORT Technique: Multiple views of the pelvis, left femur, left tibia and fibula COMPARISON: Left hip series, 01/21/2019 FINDINGS: Again identified are fractures of the left superior pubic ramus, and complex fracture of the left acetabulum. Remainder of the pelvis, bilateral hips , left femur, left tibia and fibula are intact without evidence of fracture. Degenerative changes of the knee joint noted. There is osteopenia. Vascular calcifications are seen. Signed: Claudio Junior MDRepjosem anuel Verified Date/Time: 01/21 08:17:20 Reading Location: [facility] [address] [place] [address] Reading Room RAD, FEMUR, MIN. 2 VIEWS, [id number] 08:17:00Reason for exam:->L thigh pain after in- hospital fallFINAL REPORT Technique: Multiple views of the pelvis, left femur, left tibia and fibula COMPARISON: Left hip series, 2018 FINDINGS: Again identified are fractures of the left superior pubic ramus, and complex fracture of the left acetabulum. Remainder of the pelvis, bilateral hips, left femur, left tibia and fibula are intact without evidence of fracture. Degenerative changes of the knee joint noted. There is osteopenia. Vascular calcifications are seen. Signed: Claudio Junior MDReport Verified Date/ Time: 01/21/2019 08:17:20 Reading Location: [address] Transitional Reading Room RAD , LEG, [id number] 08:17:00Reason for exam:->L tib/fib pain after in hospital fallFINAL REPORT Technique: Multiple views of the pelvis, left femur, left tibia and fibula COMPARISON: Left hip series, 2018 FINDINGS: Again identified are fractures of the left superior pubic ramus, and complex fracture of the left acetabulum. Remainder of the pelvis, bilateral hips, left femur, left tibia and fibula are intact without evidence of fracture. Degenerative changes of the knee joint noted. There is osteopenia. Vascular calcifications are seen. Signed: Claudio Junior MDReport Verified Date/ Time: 01/21/2019 08:17:20 Reading Location: [address] Transitional Reading Room COMPREHENSIVE METABOLIC [id number] 07:41:00 Test Item Value Reference Range Comments TOTAL PROTEIN (BEAKER) 6.8 gm/dL 6.0-8.3 (test yadz=241) ALBUMIN (BEAKER) (test 3.3 g/dL 3.5-5.0 uzon=4129) ALKALINE PHOSPHATASE 73 U/L 40-150 (BEAKER) (test cmzl=821) BILIRUBIN TOTAL (BEAKER) 0.6 mg/dL 0.2-1.2 (test eatn=206) SODIUM (BEAKER) (test 137 meq/L 136-145 gjpz=538) POTASSIUM (BEAKER) (test 4.0 meq/L 3.5-5.1 miqh=496) CHLORIDE (BEAKER) (test 99 meq/L 98-107 eqzm=838) CO2 (BEAKER) (test 29 meq/L 22-29 ibul=189) BLOOD UREA NITROGEN 21 mg/dL 7-21 (BEAKER) (test fwco=393) CREATININE (BEAKER) (test 2.88 mg/dL 0.57-1.25 xazl=891) GLUCOSE RANDOM (BEAKER) 154 mg/dL 70-105 (test wtsh=626) CALCIUM (BEAKER) (test 8.5 mg/dL 8.4-10.2 jxpv=289) AST (SGOT) (BEAKER) (test 22 U/L 5-34 bvvw=282) ALT (SGPT) (BEAKER) (test 40 U/L 6-55 kiny=866) EGFR (BEAKER) (test 20 mL/min/1.73 sq m ESTIMATED GFR IS NOT umna=0933) ACCURATE CREATININE CLEARANCE IN PREDICTING GLOMERULAR FILTRATION RATE. ESTIMATED GFR IS NOT APPLICABLE FOR DIALYSIS PATIENTS. [id number] 07:32:00 Test Item Value Reference Range Comments PHOSPHORUS (BEAKER) (test hboc=222) 3.5 mg/dL 2.3-4.7 [id number] 07:32:00 Test Item Value Reference Range Comments MAGNESIUM (BEAKER) (test ppmz=418) 1.8 mg/dL 1.6-2.6 VANCOMYCIN LEVEL, [id number] 07:30:00 Test Item Value Reference Range Comments VANCOMYCIN RANDOM (BEAKER) (test votq=732) 13.5 ug/mL Reference Range: No NormalsCALCIUM, [id number] 07:07:00 Test Item Value Reference Range Comments CALCIUM IONIZED (BEAKER) (test gbhw=614) 0.97 mmol/L 1.12-1.27 PH, BLOOD (BEAKER) (test csra=1726) 7.43 RAD, KNEE, 3 VIEWS, [id number] 04:15:00Reason for exam:->fallFINAL REPORT RAD, KNEE, 3 VIEWS, LEFT CLINICAL INDICATION: fall COMPARISON: None FINDINGS: Frontal, oblique and cross table lateral views of the left knee were obtained. There is no acute fracture or dislocation. The joint space are maintained. There are vascular calcifications. IMPRESSION: No acute fracture or dislocation. Signed: Joseline Darling Verified Date/ Time: 01/21/2019 04:15:52 Reading Location: [address] Body Reading Room RAD , HIP, 2 VIEWS, [id number] 04:06:00Reason for exam:->FallFINAL REPORT RAD, HIP, 2 VIEWS, LEFT CLINICAL INDICATION: Fall COMPARISON: None FINDINGS: Frontal and frog-leg lateral views of the left hip were obtained. There is a mildlydisplaced acute fracture of the superior pubic ramus. There is a comminuted left acetabular fracturewith acetabular protrusio. The left sacroiliac joint is patent. The left proximal femur is intact. IMPRESSION: Acute fractures of the left superior pubic ramus and left acetabulum. Signed: Joseline Darling Verified Date/Time: 01/21/2019 04 :06:53 Reading Location: [address] Body ReadingRoom RAD, CHEST, 2 [id number] 04:04:00Reason for exam:->fallFINAL REPORT Exam: Chest x-ray, PA and lateral views Clinical History: Fall. Comparison: Chest radiograph 01/19/2019. Technique: Frontal and lateral views of the chest were obtained. Findings/impression:There is a right IJ double lumen central venous catheter with tip in the right atrium. There has been interval removal of endotracheal and feeding tubes.The cardiomediastinal contours are stable. There is improved aeration in the bilateral lungs with residual airspace opacities in the left lower lobe. There is no pleural effusion or pneumothorax. The bony thorax is demineralized but otherwise unremarkable. Signed: Joseline Darling Verified Date/Time: 01/21/2019 04:04:05Reading Location: [address] Body Reading Room CT, BRAIN, WITHOUT [id number] 03 :40:00FINAL REPORT EXAM: CT head without contrast. CLINICAL HISTORY: Head trauma, headache COMPARISON: None. TECHNIQUE: CT images of the head were obtained without intravenous contrast. This exam was performed according to our departmental dose optimization program which includes automated exposure control, adjustment of the mA and/or kV according to patient's size and/or use of iterative reconstructive technique. FINDINGS: There are mild white matter microvascular ischemic changes. There are chronic lacunar infarcts in the bilateral caudate heads. There is intracranial calcific atherosclerosis.There is no acute intracranial hemorrhage, extra-axial fluid collection, mass effect, herniation, hydrocephalus or large demarcated acute territorial infarct. The basal cisterns are patent. There are bilateral lens replacements. The visualized paranasal sinuses and tympanomastoid cavities are clear. The skull base and calvarium are intact. IMPRESSION: Mild white matter microvascular ischemic changes. Chronic bilateral caudate head lacunar infarcts. No acute intracranial hemorrhage, extra-axial fluid collection or calvarial fracture. Signed: Joselnie Darling MDReptenet [place] Verified Date/Time: 2018 03:40:38 Reading Location: [place] [address] Body Reading Room POCT- GLUCOSE [id number] 02:33:00 Test Item Value Reference Range Comments POC-GLUCOSE METER (BEAKER) 124 mg/dL 70-110 TESTED AT [address] (test ffyq=0008) [place] [id number] POCT-GLUCOSE [id number] 18:31:00 Test Item Value Reference Range Comments POC-GLUCOSE METER (BEAKER) 120 mg/dL 70-110 TESTED AT [address] (test ulct=8670) [place] [id number] POCT-GLUCOSE [id number] 13:05:00 Test Item Value Reference Range Comments POC-GLUCOSE METER (BEAKER) 107 mg/dL 70-110 TESTED AT [address] (test jgwb=7396) [place] [address] BLOOD [id number] 09:39:00 Test Item Value Reference Range Comments CULTURE (BEAKER) From Anaerobic Bottle Only (test avrn=8895) Coagulase negative Staphylococcusof a second type GRAM STAIN RESULT From aerobic and (BEAKER) (test anaerobic bottles: pywu=3226) gram positive cocci in pairs and clusters [id number] 05:14:00 Test Item Value Reference Range Comments PHOSPHORUS (BEAKER) (test fygs=174) 6.0 mg/dL 2.3-4.7 [id number] 05:14:00 Test Item Value Reference Range Comments MAGNESIUM (BEAKER) (test avuk=686) 2.3 mg/dL 1.6-2.6 COMPREHENSIVE METABOLIC [id number] 05:14:00 Test Item Value Reference Range Comments TOTAL PROTEIN (BEAKER) 5.9 gm/dL 6.0-8.3 (test kfps=229) ALBUMIN (BEAKER) (test 2.9 g/dL 3.5-5.0 qvqc=3234) ALKALINE PHOSPHATASE 68 U/L 40-150 (BEAKER) (test nrwp=257) BILIRUBIN TOTAL (BEAKER) 0.6 mg/dL 0.2-1.2 (test ppju=947) SODIUM (BEAKER) (test 142 meq/L 136-145 jbyy=322) POTASSIUM (BEAKER) (test 4.4 meq/L 3.5-5.1 plhp=010) CHLORIDE (BEAKER) (test 106 meq/L 98-107 jqfs=647) CO2 (BEAKER) (test 23 meq/L 22-29 lebx=576) BLOOD UREA NITROGEN 33 mg/dL 7-21 (BEAKER) (test bwfp=404) CREATININE (BEAKER) (test 3.90 mg/dL 0.57-1.25 sppb=353) GLUCOSE RANDOM (BEAKER) 88 mg/dL 70-105 (test dbua=324) CALCIUM (BEAKER) (test 8.4 mg/dL 8.4-10.2 nfhv=220) AST (SGOT) (BEAKER) (test 20 U/L 5-34 xccs=933) ALT (SGPT) (BEAKER) (test 42 U/L 6-55 pwbt=301) EGFR (BEAKER) (test 14 mL/min/1.73 sq m ESTIMATED GFR IS NOT ovsb=8323) ACCURATE CREATININE CLEARANCE IN PREDICTING GLOMERULAR FILTRATION RATE. ESTIMATED GFR IS NOT APPLICABLE FOR DIALYSIS PATIENTS. CBC W/PLT COUNT & AUTO [id number] 04:46:00 Test Item Value Reference Range Comments WHITE BLOOD CELL COUNT (BEAKER) (test vmra=122) 13.4 K/ L 3.5-10.5 RED BLOOD CELL COUNT (BEAKER) (test caej=092) 2.73 M/ L 3.93-5.22 HEMOGLOBIN (BEAKER) (test hynn=126) 8.0 GM/DL 11.2-15.7 HEMATOCRIT (BEAKER) (test puyb=667) 25.4 % 34.1-44.9 MEAN CORPUSCULAR VOLUME (BEAKER) (test cqgz=962) 93.0 fL 79.4-94.8 MEAN CORPUSCULAR HEMOGLOBIN (BEAKER) (test 29.3 pg 25.6-32.2 labn=214) MEAN CORPUSCULAR HEMOGLOBIN CONC (BEAKER) (test 31.5 GM/DL 32.2-35.5 kkpb=517) RED CELL DISTRIBUTION WIDTH (BEAKER) (test 15.6 % 11.7-14.4 qrbi=799) PLATELET COUNT (BEAKER) (test awft=132) 118 K/CU MM 150-450 MEAN PLATELET VOLUME (BEAKER) (test alny=701) 10.6 fL 9.4-12.3 NUCLEATED RED BLOOD CELLS (BEAKER) (test 0 /100 WBC 0-0 vpav=919) NEUTROPHILS RELATIVE PERCENT (BEAKER) (test 85 % isgh=839) LYMPHOCYTES RELATIVE PERCENT (BEAKER) (test 4 % fgld=842) MONOCYTES RELATIVE PERCENT (BEAKER) (test 9 % tvql=459) EOSINOPHILS RELATIVE PERCENT (BEAKER) (test 0 % euxu=252) BASOPHILS RELATIVE PERCENT (BEAKER) (test 0 % aiif=545) NEUTROPHILS ABSOLUTE COUNT (BEAKER) (test 11.43 K/ L 1.56-6.13 edwl=002) LYMPHOCYTES ABSOLUTE COUNT (BEAKER) (test 0.55 K/ L 1.18-3.74 prly=579) MONOCYTES ABSOLUTE COUNT (BEAKER) (test 1.25 K/ L 0.24-0.36 bgkb=306) EOSINOPHILS ABSOLUTE COUNT (BEAKER) (test 0.05 K/ L 0.04-0.36 lrkv=041) BASOPHILS ABSOLUTE COUNT (BEAKER) (test 0.03 K/ L 0.01-0.08 lkoo=080) IMMATURE GRANULOCYTES-RELATIVE PERCENT (BEAKER) 1 % 0-1 (test julc=1239) CALCIUM, [id number] 04:40:00 Test Item Value Reference Range Comments CALCIUM IONIZED (BEAKER) (test dbvw=575) 1.11 mmol/L 1.12-1.27 PH, BLOOD (BEAKER) (test oqxg=7040) 7.42 [id number] 04:32:00 Test Item Value Reference Range Comments PHOSPHORUS (BEAKER) (test qnjj=154) 6.0 mg/dL 2.3-4.7 [id number] 04:32:00 Test Item Value Reference Range Comments MAGNESIUM (BEAKER) (test gwhj=301) 2.2 mg/dL 1.6-2.6 COMPREHENSIVE METABOLIC [id number] 04:32:00 Test Item Value Reference Range Comments TOTAL PROTEIN (BEAKER) 6.2 gm/dL 6.0-8.3 (test bamq=772) ALBUMIN (BEAKER) (test 2.9 g/dL 3.5-5.0 qgof=1797) ALKALINE PHOSPHATASE 70 U/L 40-150 (BEAKER) (test lyds=917) BILIRUBIN TOTAL (BEAKER) 0.6 mg/dL 0.2-1.2 (test kwvf=379) SODIUM (BEAKER) (test 143 meq/L 136-145 qyzs=657) POTASSIUM (BEAKER) (test 4.6 meq/L 3.5-5.1 dcal=433) CHLORIDE (BEAKER) (test 107 meq/L 98-107 mmic=633) CO2 (BEAKER) (test 23 meq/L 22-29 whes=793) BLOOD UREA NITROGEN 33 mg/dL 7-21 (BEAKER) (test lros=896) CREATININE (BEAKER) (test 3.87 mg/dL 0.57-1.25 ykxj=582) GLUCOSE RANDOM (BEAKER) 91 mg/dL 70-105 (test wpeq=390) CALCIUM (BEAKER) (test 8.6 mg/dL 8.4-10.2 fkhl=171) AST (SGOT) (BEAKER) (test 25 U/L 5-34 lbcp=716) ALT (SGPT) (BEAKER) (test 43 U/L 6-55 lxee=912) EGFR (BEAKER) (test 14 mL/min/1.73 sq m ESTIMATED GFR IS NOT rqik=1411) ACCURATE CREATININE CLEARANCE IN PREDICTING GLOMERULAR FILTRATION RATE. ESTIMATED GFR IS NOT APPLICABLE FOR DIALYSIS PATIENTS. POCT-GLUCOSE [id number] 00:04:00 Test Item Value Reference Range Comments POC-GLUCOSE METER (BEMemorandom) 131 mg/dL 70-110 TESTED AT [address] (test vbxl=8460) [place] [address] POCT-GLUCOSE [id number] 17:32:00 Test Item Value Reference Range Comments POC-GLUCOSE METER (BEAKER) 132 mg/dL 70-110 TESTED AT [address] (test hfaz=7664) [place] [address] POCT-GLUCOSE [id number] 13:12:00 Test Item Value Reference Range Comments POC-GLUCOSE METER (BEMemorandom) 79 mg/dL 70-110 TESTED AT [address] (test ywds=0218) [place] [address] BLOOD CULTURE IDENTIFICATION [id number] 11:47:00 Test Item Value Reference Range Comments LISTERIA MONOCYTOGENES (test Not detected Not detected eixz=8800968) STAPHYLOCOCCUS (test Detected Not detected Coagulase negative Staph fzib=9771488) species (CoNS)- methicillin resistantFirst-line therapy: Vancomycin MecA DETECTED Possible contamination. The likelihood of pathogenicity is increased if the organism is observed in multiple blood cultures obtained from separate venipunctures. Reference Range: Not Detected STAPHYLOCOCCUS AUREUS (test Not detected Not detected kvfj=1970412) STREPTOCOCCUS (test Not detected Not detected huhj=1192874) STREPTOCOCCUS AGALACTIAE (GROUP Not detected Not detected B) (test vzrx=2391032) STREPTOCOCCUS PNEUMONIAE (test Not detected Not detected bbce=3282777) STREPTOCOCCUS PYOGENES (GROUP Not detected Not detected A) (test uvvd=3150212) ACINETOBACTER BAUMANNII (test Not detected Not detected dbkm=3431414) HAEMOPHILUS INFLUENZAE (test Not detected Not detected gcdx=7184602) NEISSERIA MENINGITIDIS (test Not detected Not detected snto=7987901) ENTEROBACTERIACEAE (test Not detected Please refer to culture rsav=4822344) results for ID and susceptibilities.. ENTEROBACTER CLOACOE COMPLEX Not detected Not detected (test tezu=7825320) KLEBSIELLA OXYTOCA (test Not detected Not detected ylfw=9576527) KLEBSIELLA PNEUMONIAE (test Not detected Not detected bpek=5605) PROTEUS (test dosj=1509421) Not detected Not detected SERRATIA MARCESCENS (test Not detected Not detected hfhv=3270318) ARACELI ALBICANS (test Not detected Not detected surw=4901129) ARACELI GLABRATA (test Not detected Not detected quxc=3085584) ARACELI KRUSEI (test Not detected Not detected duzk=1255801) ARACELI PARAPSILOSIS (test Not detected Not detected xrbp=2446776) ARACELI TROPICALIS (test Not detected Not detected vxss=3193543) ESCHERICHIA COLI (test Not detected Not detected iyvp=3289063) METHICILLIN-RESISTANCE GENE Detected Not detected (test trpl=3338355) VANCOMYCIN-RESISTANCE GENE Not detected (test lfht=3700259) CARBAPENEM-RESISTANCE GENE Not detected Please refer to culture (test ugfu=8040356) results for ID and susceptibilities.. ENTEROCOCCUS-BEAKER (test Not detected Not detected tgoo=0929060) PSEUDOMONAS AERUGINOSA-BEAKER Not detected Not detected (test nxjn=6847534) Other bacteria and resistance markers not targeted by this PCR panel cannot be excluded; therefore clinical correlation and follow up of serology, culture results, and other molecular studies is required. The results are not intended to be used as the sole means for clinical diagnosis or patient management decisions. This sample was tested at the [facility] using the [employer] Blood Culture ID Panel. It is FDA cleared and has been verified and approved by the [facility] for clinical use. This laboratory is CLIA-certified and College ofAmerican Pathologists (CAP)-accredited to perform high complexity testing.SPUTUM CULTURE + GRAM [id number] 10:05:00 Test Item Value Reference Range Comments CULTURE (BEAKER) (test 2+ Normal respiratory laquita xnvt=2449) present GRAM STAIN RESULT (BEAKER) 2+ WBCs (test eqno=9839) GRAM STAIN RESULT (BEAKER) 0-5 epithelial cells (test fhgb=02535) GRAM STAIN RESULT (BEAKER) 2+ gram positive cocci in (test vxpi=02505) chains, pairs and clusters RAD, CHEST, 1 VIEW, NON [id number] 07:28:00Reason for exam:-> intubatedShould this be performed at the bedside?->YesFINAL REPORT Chest one view. Clinical history: intubated Comparison: 01/18/2019 Discussion: A frontal chest is provided. Cardiomediastinal contours are unchanged. Lines and tubes are in stable position. Unchanged retrocardiac opacity. No new consolidation. No pneumothorax orlarge effusion. Signed: Faiza Chueport Verified Date/Time: 01/19/2019 07:28:52 Reading Location:[facility] Radiology Reading Room COMPREHENSIVE METABOLIC [id number] 06:18:00 Test Item Value Reference Range Comments TOTAL PROTEIN (BEAKER) 6.0 gm/dL 6.0-8.3 (test hkui=418) ALBUMIN (BEAKER) (test 2.9 g/dL 3.5-5.0 dnyp=8933) ALKALINE PHOSPHATASE 77 U/L 40-150 (BEAKER) (test bmsi=895) BILIRUBIN TOTAL (BEAKER) 0.7 mg/dL 0.2-1.2 (test zhuv=292) SODIUM (BEAKER) (test 141 meq/L 136-145 iarx=507) POTASSIUM (BEAKER) (test 4.1 meq/L 3.5-5.1 tnxv=564) CHLORIDE (BEAKER) (test 106 meq/L 98-107 ggfq=246) CO2 (BEAKER) (test 25 meq/L 22-29 ckdh=358) BLOOD UREA NITROGEN 16 mg/dL 7-21 (BEAKER) (test geam=956) CREATININE (BEAKER) (test 2.34 mg/dL 0.57-1.25 nudw=686) GLUCOSE RANDOM (BEAKER) 81 mg/dL 70-105 (test hxmk=691) CALCIUM (BEAKER) (test 9.2 mg/dL 8.4-10.2 Repeated for delta check ylzn=100) AST (SGOT) (BEAKER) (test 35 U/L 5-34 ueps=406) ALT (SGPT) (BEAKER) (test 61 U/L 6-55 okow=894) EGFR (BEAKER) (test 25 mL/min/1.73 sq m ESTIMATED GFR IS NOT upjv=1362) ACCURATE CREATININE CLEARANCE IN PREDICTING GLOMERULAR FILTRATION RATE. ESTIMATED GFR IS NOT APPLICABLE FOR DIALYSIS PATIENTS. [id number] 05:50:00 Test Item Value Reference Range Comments PHOSPHORUS (BEAKER) (test dtbm=836) 2.9 mg/dL 2.3-4.7 [id number] 05:50:00 Test Item Value Reference Range Comments MAGNESIUM (BEAKER) (test hxyp=864) 1.7 mg/dL 1.6-2.6 VANCOMYCIN LEVEL, [id number] 05:50:00 Test Item Value Reference Range Comments VANCOMYCIN RANDOM (BEAKER) (test uwxa=025) 10.9 ug/mL Reference Range: No NormalsCBC W/PLT COUNT & AUTO [id number] 05: 25:00 Test Item Value Reference Range Comments WHITE BLOOD CELL COUNT (BEAKER) (test rnlh=181) 9.9 K/ L 3.5-10.5 RED BLOOD CELL COUNT (BEAKER) (test zczu=051) 2.97 M/ L 3.93-5.22 HEMOGLOBIN (BEAKER) (test nvjs=086) 8.6 GM/DL 11.2-15.7 HEMATOCRIT (BEAKER) (test vxhj=552) 26.9 % 34.1-44.9 MEAN CORPUSCULAR VOLUME (BEAKER) (test wely=072) 90.6 fL 79.4-94.8 MEAN CORPUSCULAR HEMOGLOBIN (BEAKER) (test 29.0 pg 25.6-32.2 qyos=927) MEAN CORPUSCULAR HEMOGLOBIN CONC (BEAKER) (test 32.0 GM/DL 32.2-35.5 ynna=017) RED CELL DISTRIBUTION WIDTH (BEAKER) (test 15.5 % 11.7-14.4 anmb=440) PLATELET COUNT (BEAKER) (test yctu=015) 57 K/CU MM 150-450 MEAN PLATELET VOLUME (BEAKER) (test qgsa=509) 11.6 fL 9.4-12.3 NUCLEATED RED BLOOD CELLS (BEAKER) (test 0 /100 WBC 0-0 ntpn=030) NEUTROPHILS RELATIVE PERCENT (BEAKER) (test 81 % mhis=530) LYMPHOCYTES RELATIVE PERCENT (BEAKER) (test 7 % hhnn=424) MONOCYTES RELATIVE PERCENT (BEAKER) (test 8 % cpaa=239) EOSINOPHILS RELATIVE PERCENT (BEAKER) (test 4 % kdvx=290) BASOPHILS RELATIVE PERCENT (BEAKER) (test 0 % dctg=146) NEUTROPHILS ABSOLUTE COUNT (BEAKER) (test 8.02 K/ L 1.56-6.13 rlps=515) LYMPHOCYTES ABSOLUTE COUNT (BEAKER) (test 0.68 K/ L 1.18-3.74 pafw=426) MONOCYTES ABSOLUTE COUNT (BEAKER) (test tghv=865) 0.74 K/ L 0.24-0.36 EOSINOPHILS ABSOLUTE COUNT (BEAKER) (test 0.38 K/ L 0.04-0.36 gplm=193) BASOPHILS ABSOLUTE COUNT (BEAKER) (test qlje=992) 0.03 K/ L 0.01-0.08 IMMATURE GRANULOCYTES-RELATIVE PERCENT (BEAKER) 1 % 0-1 (test gdoq=8430) BLOOD GAS, [id number] 05:21:00 Test Item Value Reference Range Comments PH ARTERIAL (BEAKER) (test vadw=704) 7.57 7.35-7.45 PCO2 ARTERIAL (BEAKER) (test awfp=718) 28 mmHg 35-45 PO2 ARTERIAL (BEAKER) (test emyl=780) 177 mmHg 80-90 O2 SATURATION ARTERIAL (BEAKER) (test yoxb=041) 99.4 % 96.0-97.0 HCO3 ARTERIAL (BEAKER) (test fnnc=279) 25 mmol/L 21-29 BASE EXCESS ARTERIAL (BEAKER) (test dtbd=399) 3.6 mmol/L -2.0-3.0 PATIENT TEMPERATURE (BEAKER) (test pqax=0194) 36.8 C FIO2 (BEAKER) (test otgu=5142) 40.0 % CALCIUM, [id number] 05:21:00 Test Item Value Reference Range Comments CALCIUM IONIZED (BEAKER) (test wpzz=818) 1.17 mmol/L 1.12-1.27 PH, BLOOD (BEAKER) (test rxad=2843) 7.57 POCT-GLUCOSE [id number] 23:38:00 Test Item Value Reference Range Comments POC-GLUCOSE METER (BEAKER) 101 mg/dL 70-110 TESTED AT [address] (test szll=6870) [facility] [address] POCT-GLUCOSE [id number] 18:20:00 Test Item Value Reference Range Comments POC-GLUCOSE METER (BEAKER) 105 mg/dL 70-110 TESTED AT [address] (test xcyv=5964) [facility] [address] PROTHROMBIN [id number] 15:43:00 Test Item Value Reference Range Comments PROTIME (BEAKER) (test fpch=708) 15.6 seconds 11.7-14.7 INR (BEAKER) (test ngva=599) 1.3 <=5.9 RECOMMENDED COUMADIN/WARFARIN INR THERAPY RANGESSTANDARD DOSE: 2.0 - 3.0 Includes: PROPHYLAXIS forvenous thrombosis, systemic embolization; TREATMENT for venous thrombosis and/or pulmonary embolus.HIGH RISK: Target INR is 2.5-3.5 for patients with mechanical heart valves.POCT-GLUCOSE [id number] 15:09:00 Test Item Value Reference Range Comments [facility] 110 mg/dL 70-110 TESTED AT [address] (test fxnu=4114) [facility] [address] HEPATITIS B SURFACE [id number] 07:49:00 Test Item Value Reference Range Comments HEPATITIS B SURFACE ANTIGEN (2) (BEAKER) (test Nonreactive Nonreactive fbij=8783) [id number] 07:42:00 Test Item Value Reference Range Comments PHOSPHORUS (BEAKER) (test xslk=309) 4.6 mg/dL 2.3-4.7 [id number] 07:42:00 Test Item Value Reference Range Comments MAGNESIUM (BEAKER) (test typd=320) 1.7 mg/dL 1.6-2.6 COMPREHENSIVE METABOLIC [id number] 07:42:00 Test Item Value Reference Range Comments TOTAL PROTEIN (BEAKER) 5.5 gm/dL 6.0-8.3 (test rwdb=233) ALBUMIN (BEAKER) (test 2.8 g/dL 3.5-5.0 hdwe=5222) ALKALINE PHOSPHATASE 64 U/L 40-150 (BEAKER) (test aaxw=238) BILIRUBIN TOTAL (BEAKER) 0.5 mg/dL 0.2-1.2 (test bwlv=354) SODIUM (BEAKER) (test 140 meq/L 136-145 tvrc=528) POTASSIUM (BEAKER) (test 4.2 meq/L 3.5-5.1 rkwn=996) CHLORIDE (BEAKER) (test 110 meq/L 98-107 brqe=898) CO2 (BEAKER) (test 20 meq/L 22-29 yefg=815) BLOOD UREA NITROGEN 56 mg/dL 7-21 (BEAKER) (test jgzc=484) CREATININE (BEAKER) (test 5.56 mg/dL 0.57-1.25 fsaz=966) GLUCOSE RANDOM (BEAKER) 113 mg/dL 70-105 (test xaze=687) CALCIUM (BEAKER) (test 7.7 mg/dL 8.4-10.2 fuaw=373) AST (SGOT) (BEAKER) (test 58 U/L 5-34 lxyx=605) ALT (SGPT) (BEAKER) (test 72 U/L 6-55 aocw=563) EGFR (BEAKER) (test 9 mL/min/1.73 sq m ESTIMATED GFR IS NOT olzp=7950) ACCURATE CREATININE CLEARANCE IN PREDICTING GLOMERULAR FILTRATION RATE. ESTIMATED GFR IS NOT APPLICABLE FOR DIALYSIS PATIENTS. [id number] 07:01:00 Test Item Value Reference Range Comments PARTIAL THROMBOPLASTIN TIME (BEAKER) (test 83.6 seconds 22.5-36.0 xjjl=940) RAD, CHEST, 1 VIEW, NON [id number] 07:00:00Reason for exam:-> intubatedShould this be performed at the bedside?->YesFINAL REPORT Chest one view. Clinical history: intubated Comparison: Chest radiograph 01/17/2019. Technique: A single frontal view of the chest was obtained. Findings: The patient is rotated to the right.Endotracheal and feeding tubes are in satisfactory positions. There is a right IJ double lumen central venous catheter with tip in the.The cardiomediastinal contours are stable. A small left pleural effusion cannot be excluded. There is a left lower lobe opacity which represent atelectasis and/or pneumonia. There is no pneumothorax. Signed: Joseline Darling Verified Date/Time: 01/18/2019 07: 00:55 Reading Location: [facility] C013Y CT Body Reading Room CBC W/PLT COUNT & AUTO [id number] 06:59:00 Test Item Value Reference Range Comments WHITE BLOOD CELL COUNT (BEAKER) (test kyem=232) 10.1 K/ L 3.5-10.5 RED BLOOD CELL COUNT (BEAKER) (test zvtn=613) 2.70 M/ L 3.93-5.22 HEMOGLOBIN (BEAKER) (test wsdc=367) 7.9 GM/DL 11.2-15.7 HEMATOCRIT (BEAKER) (test qvhr=428) 25.1 % 34.1-44.9 MEAN CORPUSCULAR VOLUME (BEAKER) (test kibr=070) 93.0 fL 79.4-94.8 MEAN CORPUSCULAR HEMOGLOBIN (BEAKER) (test 29.3 pg 25.6-32.2 igov=448) MEAN CORPUSCULAR HEMOGLOBIN CONC (BEAKER) (test 31.5 GM/DL 32.2-35.5 jilq=054) RED CELL DISTRIBUTION WIDTH (BEAKER) (test 15.9 % 11.7-14.4 pwkz=079) PLATELET COUNT (BEAKER) (test trjd=460) 70 K/CU MM 150-450 MEAN PLATELET VOLUME (BEAKER) (test tcij=529) 11.0 fL 9.4-12.3 NUCLEATED RED BLOOD CELLS (BEAKER) (test 0 /100 WBC 0-0 qzlw=298) NEUTROPHILS RELATIVE PERCENT (BEAKER) (test 80 % xjbb=293) LYMPHOCYTES RELATIVE PERCENT (BEAKER) (test 7 % sgyc=838) MONOCYTES RELATIVE PERCENT (BEAKER) (test 8 % qmqk=203) EOSINOPHILS RELATIVE PERCENT (BEAKER) (test 5 % lmhn=283) BASOPHILS RELATIVE PERCENT (BEAKER) (test 0 % eofe=086) NEUTROPHILS ABSOLUTE COUNT (BEAKER) (test 8.04 K/ L 1.56-6.13 lnrf=493) LYMPHOCYTES ABSOLUTE COUNT (BEAKER) (test 0.66 K/ L 1.18-3.74 hwja=821) MONOCYTES ABSOLUTE COUNT (BEAKER) (test utbw=997) 0.81 K/ L 0.24-0.36 EOSINOPHILS ABSOLUTE COUNT (BEAKER) (test 0.50 K/ L 0.04-0.36 wenw=048) BASOPHILS ABSOLUTE COUNT (BEAKER) (test wkxf=706) 0.02 K/ L 0.01-0.08 IMMATURE GRANULOCYTES-RELATIVE PERCENT (BEAKER) 1 % 0-1 (test qblj=5598) BLOOD GAS, [id number] 06:51:00 Test Item Value Reference Range Comments PH ARTERIAL (BEAKER) (test xrox=348) 7.48 7.35-7.45 PCO2 ARTERIAL (BEAKER) (test osve=025) 30 mmHg 35-45 PO2 ARTERIAL (BEAKER) (test lndt=712) 229 mmHg 80-90 O2 SATURATION ARTERIAL (BEAKER) (test gmkm=501) 99.6 % 96.0-97.0 HCO3 ARTERIAL (BEAKER) (test pepo=249) 22 mmol/L 21-29 BASE EXCESS ARTERIAL (BEAKER) (test bslk=487) -1.0 mmol/L -2.0-3.0 PATIENT TEMPERATURE (BEAKER) (test hvdt=1787) 37.2 C FIO2 (BEAKER) (test sfre=3303) 40.0 % [id number] 00:22:00 Test Item Value Reference Range Comments POTASSIUM (BEAKER) (test cqen=918) 4.3 meq/L 3.5-5.1 [id number] 00:17:00 Test Item Value Reference Range Comments PARTIAL THROMBOPLASTIN TIME (BEAKER) (test 68.7 seconds 22.5-36.0 lshe=258) [id number] 20:12:00 Test Item Value Reference Range Comments PARTIAL THROMBOPLASTIN TIME (BEAKER) (test 61.8 seconds 22.5-36.0 wzix=209) POCT-GLUCOSE [id number] 18:39:00 Test Item Value Reference Range Comments POC-GLUCOSE METER (BEAKER) 80 mg/dL 70-110 TESTED AT [address] (test fuhe=7166) [place] [id number] POCT-GLUCOSE [id number] 12:28:00 Test Item Value Reference Range Comments POC-GLUCOSE METER (BEAKER) 80 mg/dL 70-110 TESTED AT [address] (test ucdg=4306) [place] [address] [id number] 12:12:00 Test Item Value Reference Range Comments PARTIAL THROMBOPLASTIN TIME (BEAKER) (test 65.0 seconds 22.5-36.0 jqka=693) TROPONIN [id number] 10:49:00 Test Item Value Reference Range Comments TROPONIN I (BEAKER) (test pxuz=281) 0.28 ng/mL 0.00-0.03 Troponin I (TnI) levels must be interpreted in the context of the presenting symptoms and the clinical findings. Elevated TnI levels indicate myocardial damage, but are not specific for ischemic heart disease. Elevated TnI levels are seen in patients with other cardiac conditions (including myocarditis and congestive heart failure), and slight TnI elevations occur in patients with other conditions, including sepsis, renal failure, acidosis, acute neurological disease, and persistent tachyarrhythmia.RESPIRATORY PANEL [id number] 09:51: 00 Test Item Value Reference Range Comments HUMAN METAPNEUMOVIRUS (BEAKER) (test Not detected Not detected, Equivocal ofox=5578) RHINOVIRUS (BEAKER) (test zcya=4341) Not detected Not detected, Equivocal INFLUENZA A (BEAKER) (test mfst=7557) Not detected Not detected, Equivocal INFLUENZA A (NO SUBTYPE) (test Not detected, Equivocal mfpz=0667) INFLUENZA A SUBTYPE H1 (BEAKER) (test Not detected, Equivocal fwbx=4577) INFLUENZA A SUBTYPE H3 (BEAKER) (test Not detected, Equivocal ziql=6453) INFLUENZA A SUBTYPE H1-2009 (BEAKER) Not detected, Equivocal (test gflv=9174) INFLUENZA B (BEAKER) (test jdgv=0716) Not detected Not detected, Equivocal RESPIRATORY SYNCYTIAL VIRUS (BEAKER) Not detected Not detected, Equivocal (test lhmk=8901) PARAINFLUENZA VIRUS 1 (BEAKER) (test Not detected Not detected, Equivocal xdhb=0860) PARAINFLUENZA VIRUS 2 (BEAKER) (test Not detected Not detected, Equivocal ezhx=4771) PARAINFLUENZA VIRUS 3 (BEAKER) (test Not detected Not detected, Equivocal voiq=4114) PARAINFLUENZA VIRUS 4 (BEAKER) (test Not detected Not detected, Equivocal gety=9985) ADENOVIRUS (BEAKER) (test ynee=1695) Not detected Not detected, Equivocal CORONAVIRUS 229E (BEAKER) (test Not detected Not detected, Equivocal uxes=0873) CORONAVIRUS HKU1 (BEAKER) (test Not detected Not detected, Equivocal lsuo=4310) CORONAVIRUS NL63 (BEAKER) (test Not detected Not detected, Equivocal qrrq=4605) CORONAVIRUS OC43 (BEAKER) (test Not detected Not detected, Equivocal bavc=9015) BORDETELLA PERTUSSIS (BEAKER) (test Not detected Not detected, Equivocal zrih=3476) CHLAMYDOPHILA PNEUMONIAE (BEAKER) (test Not detected Not detected, Equivocal zywk=7566) MYCOPLASMA PNEUMONIAE (BEAKER) (test Not detected Not detected, Equivocal qeig=7424) Other viruses and bacteria not targeted by this PCR panel cannot be excluded; therefore clinical correlation and follow up of serology, culture results, and other molecular studies is required. The results are not intended to be used as the sole means for clinical diagnosis or patient management decisions. This sample was tested at the [facility] using the Ezo[employer]Array Respiratory Panel. It is FDA cleared and has been verified and approved by the [facility] for clinical use on nasopharyngeal swab specimens.The performance of the FilmArrayRP has not been established in individuals who received influenza vaccine. Recent administration ofa nasal influenza vaccine may cause false positive results for Influenza A and/orInfluenza B.COMPREHENSIVE METABOLIC [id number] 05:18:00 Test Item Value Reference Range Comments TOTAL PROTEIN (BEAKER) 5.2 gm/dL 6.0-8.3 Specimen slightly (test tqmy=161) hemolyzed ALBUMIN (BEAKER) (test 2.6 g/dL 3.5-5.0 Specimen slightly ogam=1956) hemolyzed ALKALINE PHOSPHATASE 59 U/L 40-150 (BEAKER) (test jyko=214) BILIRUBIN TOTAL (BEAKER) 0.4 mg/dL 0.2-1.2 Specimen slightly (test cwcn=891) hemolyzed SODIUM (BEAKER) (test 145 meq/L 136-145 kwgv=672) POTASSIUM (BEAKER) (test 4.2 meq/L 3.5-5.1 Specimen slightly vqsv=048) hemolyzed CHLORIDE (BEAKER) (test 113 meq/L 98-107 tbrq=925) CO2 (BEAKER) (test 22 meq/L 22-29 twpa=459) BLOOD UREA NITROGEN 50 mg/dL 7-21 (BEAKER) (test jqfk=891) CREATININE (BEAKER) (test 4.73 mg/dL 0.57-1.25 Specimen slightly wjil=250) hemolyzed GLUCOSE RANDOM (BEAKER) 82 mg/dL 70-105 (test dfyg=786) CALCIUM (BEAKER) (test 8.4 mg/dL 8.4-10.2 yerv=913) AST (SGOT) (BEAKER) (test 138 U/L 5-34 Specimen slightly zpjm=371) hemolyzed ALT (SGPT) (BEAKER) (test 94 U/L 6-55 Specimen slightly pxne=748) hemolyzed EGFR (BEAKER) (test 11 mL/min/1.73 sq m ESTIMATED GFR IS NOT ienv=5703) ACCURATE CREATININE CLEARANCE IN PREDICTING GLOMERULAR FILTRATION RATE. ESTIMATED GFR IS NOT APPLICABLE FOR DIALYSIS PATIENTS. [id number] 05:17:00 Test Item Value Reference Range Comments MAGNESIUM (BEAKER) (test 1.9 mg/dL 1.6-2.6 Specimen slightly hemolyzed xwvb=605) [id number] 05:17:00 Test Item Value Reference Range Comments PHOSPHORUS (BEAKER) (test 4.3 mg/dL 2.3-4.7 Specimen slightly hemolyzed klji=951) [id number] 05:01:00 Test Item Value Reference Range Comments PARTIAL THROMBOPLASTIN TIME (BEAKER) (test 108.7 seconds 22.5-36.0 ehnf=823) CBC W/PLT COUNT & AUTO [id number] 04:48:00 Test Item Value Reference Range Comments WHITE BLOOD CELL COUNT (BEAKER) (test zcfp=845) 7.8 K/ L 3.5-10.5 RED BLOOD CELL COUNT (BEAKER) (test lfru=258) 2.61 M/ L 3.93-5.22 HEMOGLOBIN (BEAKER) (test jzrp=145) 7.6 GM/DL 11.2-15.7 HEMATOCRIT (BEAKER) (test mgwt=959) 23.8 % 34.1-44.9 MEAN CORPUSCULAR VOLUME (BEAKER) (test wuuv=985) 91.2 fL 79.4-94.8 MEAN CORPUSCULAR HEMOGLOBIN (BEAKER) (test 29.1 pg 25.6-32.2 xasr=738) MEAN CORPUSCULAR HEMOGLOBIN CONC (BEAKER) (test 31.9 GM/DL 32.2-35.5 zmpp=503) RED CELL DISTRIBUTION WIDTH (BEAKER) (test 15.7 % 11.7-14.4 yeqb=351) PLATELET COUNT (BEAKER) (test afoe=794) 52 K/CU MM 150-450 MEAN PLATELET VOLUME (BEAKER) (test gqho=752) 12.1 fL 9.4-12.3 NUCLEATED RED BLOOD CELLS (BEAKER) (test 0 /100 WBC 0-0 spaq=534) NEUTROPHILS RELATIVE PERCENT (BEAKER) (test 74 % hzkz=754) LYMPHOCYTES RELATIVE PERCENT (BEAKER) (test 13 % cljt=958) MONOCYTES RELATIVE PERCENT (BEAKER) (test 8 % wbgy=801) EOSINOPHILS RELATIVE PERCENT (BEAKER) (test 5 % vpah=680) BASOPHILS RELATIVE PERCENT (BEAKER) (test 0 % uvwt=411) NEUTROPHILS ABSOLUTE COUNT (BEAKER) (test 5.72 K/ L 1.56-6.13 gvvs=247) LYMPHOCYTES ABSOLUTE COUNT (BEAKER) (test 0.98 K/ L 1.18-3.74 gfrt=931) MONOCYTES ABSOLUTE COUNT (BEAKER) (test ycii=616) 0.64 K/ L 0.24-0.36 EOSINOPHILS ABSOLUTE COUNT (BEAKER) (test 0.38 K/ L 0.04-0.36 rwlf=168) BASOPHILS ABSOLUTE COUNT (BEAKER) (test lkfo=280) 0.02 K/ L 0.01-0.08 IMMATURE GRANULOCYTES-RELATIVE PERCENT (BEAKER) 1 % 0-1 (test qsxg=3216) BLOOD GAS, [id number] 04:41:00 Test Item Value Reference Range Comments PH ARTERIAL (BEAKER) (test qslx=110) 7.48 7.35-7.45 PCO2 ARTERIAL (BEAKER) (test mtez=845) 33 mmHg 35-45 PO2 ARTERIAL (BEAKER) (test ygpr=706) 238 mmHg 80-90 O2 SATURATION ARTERIAL (BEAKER) (test bdll=165) 99.6 % 96.0-97.0 HCO3 ARTERIAL (BEAKER) (test viws=669) 24 mmol/L 21-29 BASE EXCESS ARTERIAL (BEAKER) (test udvj=221) 0.5 mmol/L -2.0-3.0 PATIENT TEMPERATURE (BEAKER) (test drur=2891) 36.5 C FIO2 (BEAKER) (test gdna=0063) 40.0 % CALCIUM, [id number] 04:41:00 Test Item Value Reference Range Comments CALCIUM IONIZED (BEAKER) (test mwpa=857) 1.11 mmol/L 1.12-1.27 PH, BLOOD (BEAKER) (test odjz=2500) 7.47 RAD, CHEST, 1 VIEW, NON [id number] 04:31:00Reason for exam:-> intubatedShould this be performed at the bedside?->YesFINAL REPORT RAD, CHEST, 1 VIEW, NON DEPT INDICATION: intubated COMPARISON: Prior day's exam FINDINGS: Portable frontal view of the chest. IMPRESSION: Support Lines: ET tube tip terminates 4 cm superior to the [place]. NG tube descends below the diaphragm. Dialysis catheter tip overlies the right atrium.Lungs and pleura: Bibasilar subsegmental atelectasis in left retrocardiacopacity are unchanged No pneumothorax.Heart and mediastinum: Stable contours. Additional findings: None. Signed: Dory Pride MDReport Verified Date/Time: 01/17/2019 04:31:10 Reading Location: [address] Neuro Reading Room 04: 31 AMBLOOD GAS, [id number] 01:06:00 Test Item Value Reference Range Comments PH ARTERIAL (BEAKER) (test dwpz=753) 7.49 7.35-7.45 PCO2 ARTERIAL (BEAKER) (test romi=093) 32 mmHg 35-45 PO2 ARTERIAL (BEAKER) (test huqf=013) 193 mmHg 80-90 O2 SATURATION ARTERIAL (BEAKER) (test jspq=438) 99.4 % 96.0-97.0 HCO3 ARTERIAL (BEAKER) (test ugfy=048) 24 mmol/L 21-29 BASE EXCESS ARTERIAL (BEAKER) (test ivug=855) 0.5 mmol/L -2.0-3.0 PATIENT TEMPERATURE (BEAKER) (test huvf=9292) 36.7 C FIO2 (BEAKER) (test dcfv=3617) 40.0 % TROPONIN [id number] 23:17:00 Test Item Value Reference Range Comments TROPONIN I (BEAKER) (test odqp=328) 0.41 ng/mL 0.00-0.03 Troponin I (TnI) levels must be interpreted in the context of the presenting symptoms and the clinical findings. Elevated TnI levels indicate myocardial damage, but are not specific for ischemic heart disease. Elevated TnI levels are seen in patients with other cardiac conditions (including myocarditis and congestive heart failure), and slight TnI elevations occur in patients with other conditions, including sepsis, renal failure, acidosis, acute neurological disease, and persistent tachyarrhythmia.BASIC METABOLIC [id number] 23:05:00 Test Item Value Reference Range Comments SODIUM (BEAKER) (test 143 meq/L 136-145 qnmk=418) POTASSIUM (BEAKER) (test 4.2 meq/L 3.5-5.1 oypm=426) CHLORIDE (BEAKER) (test 111 meq/L 98-107 asfo=050) CO2 (BEAKER) (test 22 meq/L 22-29 krow=635) BLOOD UREA NITROGEN 50 mg/dL 7-21 (BEAKER) (test gwiy=268) CREATININE (BEAKER) (test 4.67 mg/dL 0.57-1.25 rwfg=667) GLUCOSE RANDOM (BEAKER) 94 mg/dL 70-105 (test bckc=918) CALCIUM (BEAKER) (test 8.4 mg/dL 8.4-10.2 gsve=206) EGFR (BEAKER) (test 11 mL/min/1.73 sq m ESTIMATED GFR IS NOT umuk=2021) ACCURATE CREATININE CLEARANCE IN PREDICTING GLOMERULAR FILTRATION RATE. ESTIMATED GFR IS NOT APPLICABLE FOR DIALYSIS PATIENTS. [id number] 23:04:00 Test Item Value Reference Range Comments MAGNESIUM (BEAKER) (test nnjs=857) 1.8 mg/dL 1.6-2.6 [id number] 22:56:00 Test Item Value Reference Range Comments PARTIAL THROMBOPLASTIN TIME (BEAKER) (test 76.2 seconds 22.5-36.0 xhed=110) HEMOGLOBIN [id number] 22:46:00 Test Item Value Reference Range Comments HEMOGLOBIN A1C (BEAKER) (test qviw=853) 5.2 % 4.3-6.1 POSSIBLE HEMOGLOBIN S VARIANT NOTED IN HEMOGLOBIN A1C CHROMATOGRAPH. SUGGEST HEMOGLOBIN ELECTROPHORESIS IF CLINICALLY INDICATED.B-TYPE NATRIURETIC FACTOR ( BNP)2019-01-16 19:08:00 Test Item Value Reference Range Comments B-TYPE NATRIURETIC PEPTIDE (BEAKER) (test 3143 pg/mL 0-100 rftu=899) TROPONIN [id number] 18:17:00 Test Item Value Reference Range Comments TROPONIN I (BEAKER) (test zkyg=382) 0.41 ng/mL 0.00-0.03 Troponin I (TnI) levels must be interpreted in the context of the presenting symptoms and the clinical findings. Elevated TnI levels indicate myocardial damage, but are not specific for ischemic heart disease. Elevated TnI levels are seen in patients with other cardiac conditions (including myocarditis and congestive heart failure), and slight TnI elevations occur in patients with other conditions, including sepsis, renal failure, acidosis, acute neurological disease, and persistent tachyarrhythmia.COMPREHENSIVE METABOLIC [id number] 18:10:00 Test Item Value Reference Range Comments TOTAL PROTEIN (BEAKER) 6.0 gm/dL 6.0-8.3 (test tejn=695) ALBUMIN (BEAKER) (test 3.1 g/dL 3.5-5.0 bmum=1107) ALKALINE PHOSPHATASE 67 U/L 40-150 (BEAKER) (test pbpx=355) BILIRUBIN TOTAL (BEAKER) 0.5 mg/dL 0.2-1.2 (test qizy=458) SODIUM (BEAKER) (test 144 meq/L 136-145 irtx=534) POTASSIUM (BEAKER) (test 4.5 meq/L 3.5-5.1 rern=755) CHLORIDE (BEAKER) (test 111 meq/L 98-107 ttuc=411) CO2 (BEAKER) (test 25 meq/L 22-29 gmry=340) BLOOD UREA NITROGEN 48 mg/dL 7-21 (BEAKER) (test ddof=189) CREATININE (BEAKER) (test 4.66 mg/dL 0.57-1.25 vhwj=798) GLUCOSE RANDOM (BEAKER) 107 mg/dL 70-105 (test voxm=366) CALCIUM (BEAKER) (test 8.9 mg/dL 8.4-10.2 lcbe=456) AST (SGOT) (BEAKER) (test 269 U/L 5-34 asit=008) ALT (SGPT) (BEAKER) (test 133 U/L 6-55 nnxw=374) EGFR (BEAKER) (test 11 mL/min/1.73 sq m ESTIMATED GFR IS NOT weyc=7847) ACCURATE CREATININE CLEARANCE IN PREDICTING GLOMERULAR FILTRATION RATE. ESTIMATED GFR IS NOT APPLICABLE FOR DIALYSIS PATIENTS. LIPID [id number] 18:06:00 Test Item Value Reference Range Comments TRIGLYCERIDES (BEAKER) (test soqt=897) 87 mg/dL CHOLESTEROL (BEAKER) (test blfx=323) 131 mg/dL HDL CHOLESTEROL (BEAKER) (test ofrp=275) 39 mg/dL LDL CHOLESTEROL CALCULATED (BEAKER) (test 75 mg/dL xmpa=518) Triglyceride Reference Range: Low Risk <150 Borderline 150- 199 High Risk 200-499 Very High Risk >=500Cholesterol Reference Range: Low Risk <200 Borderline 200-239 High Risk > 240HDL Cholesterol Reference Range: Low Risk >=60 High Risk <40LDL Cholesterol Reference Range: Optimal <100 Near Optimal 100-129 Borderline 130-159 High 160-189 Very High >=[id number] 18:06:00 Test Item Value Reference Range Comments MAGNESIUM (BEAKER) (test hoai=121) 1.8 mg/dL 1.6-2.6 [id number] 18:06:00 Test Item Value Reference Range Comments PHOSPHORUS (BEAKER) (test feoc=655) 4.7 mg/dL 2.3-4.7 LACTIC ACID, [id number] 18:03:00 Test Item Value Reference Range Comments LACTATE BLOOD VENOUS (2) (BEAKER) (test 0.8 mmol/L 0.5-2.2 bytf=4970) [id number] 17:58:00 Test Item Value Reference Range Comments PARTIAL THROMBOPLASTIN TIME (BEAKER) (test 32.0 seconds 22.5-36.0 eutf=249) Prior to initiating heparinCBC W/PLT COUNT & AUTO [id number] 17: 55:00 Test Item Value Reference Range Comments WHITE BLOOD CELL COUNT (BEAKER) (test jnjj=357) 9.0 K/ L 3.5-10.5 RED BLOOD CELL COUNT (BEAKER) (test xvlf=641) 2.98 M/ L 3.93-5.22 HEMOGLOBIN (BEAKER) (test pyus=447) 8.7 GM/DL 11.2-15.7 HEMATOCRIT (BEAKER) (test xhnk=134) 27.7 % 34.1-44.9 MEAN CORPUSCULAR VOLUME (BEAKER) (test xtys=866) 93.0 fL 79.4-94.8 MEAN CORPUSCULAR HEMOGLOBIN (BEAKER) (test 29.2 pg 25.6-32.2 vcrt=593) MEAN CORPUSCULAR HEMOGLOBIN CONC (BEAKER) (test 31.4 GM/DL 32.2-35.5 suof=712) RED CELL DISTRIBUTION WIDTH (BEAKER) (test 15.7 % 11.7-14.4 ucon=261) PLATELET COUNT (BEAKER) (test smht=045) 53 K/CU MM 150-450 MEAN PLATELET VOLUME (BEAKER) (test zdhk=016) 10.8 fL 9.4-12.3 NUCLEATED RED BLOOD CELLS (BEAKER) (test 0 /100 WBC 0-0 kapm=931) NEUTROPHILS RELATIVE PERCENT (BEAKER) (test 83 % ejyv=259) LYMPHOCYTES RELATIVE PERCENT (BEAKER) (test 6 % wqnx=790) MONOCYTES RELATIVE PERCENT (BEAKER) (test 9 % vtkk=535) EOSINOPHILS RELATIVE PERCENT (BEAKER) (test 1 % wuma=456) BASOPHILS RELATIVE PERCENT (BEAKER) (test 0 % radi=386) NEUTROPHILS ABSOLUTE COUNT (BEAKER) (test 7.41 K/ L 1.56-6.13 qcho=554) LYMPHOCYTES ABSOLUTE COUNT (BEAKER) (test 0.49 K/ L 1.18-3.74 ppsn=813) MONOCYTES ABSOLUTE COUNT (BEAKER) (test obpr=914) 0.84 K/ L 0.24-0.36 EOSINOPHILS ABSOLUTE COUNT (BEAKER) (test 0.10 K/ L 0.04-0.36 lkcq=421) BASOPHILS ABSOLUTE COUNT (BEAKER) (test sdqf=308) 0.03 K/ L 0.01-0.08 IMMATURE GRANULOCYTES-RELATIVE PERCENT (BEAKER) 1 % 0-1 (test pctk=1297) RAD, CHEST, 1 VIEW, NON [id number] 17:13:00Post-intubationReason for exam:-& gt;intubationShould this be performed at the bedside?->YesFINAL REPORT EXAM: Supine portable frontal chest radiograph HISTORY PROVIDED:Intubation COMPARISON: None available IMPRESSION:The tip of an endotracheal tube terminates approximately 3.5 cm above the mar[place]. An enteric tube descends below the diaphragm with its tip off the field of view. A dual- lumen right IJ central venous catheter is in place with the tips projecting over the distal SVC and cavoatrial junction respectively. There is slight elevation of the left hemidiaphragm. Left basilar opacities may represent atelectasis or consolidation. Mild central pulmonary vascularcongestion is suspected. No pneumothorax or significant pleural fluid. The cardiac silhouette appears mildly enlarged. No acute osseous abnormality. Signed: Delvin Grubbs Verified Date/Time: 01/16/2019 17:13:52 Reading Location: [facility] RAD, ABDOMEN/KUB, 1 VIEW [id number] 17:06:00Reason for exam:->ng tube placementFINAL REPORT EXAM: Frontal supine chest radiograph HISTORY PROVIDED: Nasogastric tube placement COMPARISON: None available IMPRESSION:The tip of a nasogastric tube projects in the expected location of the body of the stomach. The visualized bowel gas pattern is nonspecific but appears nonobstructive. While no definite free air is seen, this examination is insensitive for the detection of free air. No acute osseous abnormality. Degenerative changes of the spine are noted. Signed: Delvin Grubbs Verified Date/Time: 01/16/2019 17:06:42 Reading Location: [facility] [place]
== END 2019-07-13 23:05 | disposition home or self-care (01) ==
LOC: ER 17:53
DX: I13.10 Hypertensive heart and chronic kidney disease without heart failure, with stage 1 through stage 4 chronic kidney disease, or unspecified chronic kidney disease (principal); E11.22 Type 2 diabetes mellitus with diabetic chronic kidney disease; I12.9 Hypertensive chronic kidney disease with stage 1 through stage 4 chronic kidney disease, or unspecified chronic kidney disease; N18.9 Chronic kidney disease, unspecified; Z79.82 Long term (current) use of aspirin; Z79.4 Long term (current) use of insulin; Z88.3 Allergy status to other anti-infective agents; Z88.5 Allergy status to narcotic agent
CPT/HCPCS: 36415; 70450; 80048; 80076; 83735; 85025; 85610; 93005; 99285

== ENCOUNTER 2019-10-24 21:00 | Emergency (ER) | payer OTHER ==
--- OUTSIDE RECORDS SUMMARY | 2019-10-24 21:11 | XMS REPORT ---
:1950 Author Organization [facility] Address [facility] [address] [place] [address] Care Team Providers Name Role Phone GERHARD, LOBO Garcia Unavailable Unavailable ALTAGRACIA BARAJAS Unavailable Unavailable Problems This patient has no known problems. Allergies, Adverse Reactions, Alerts This patient has no known allergies or adverse reactions. Medications This patient has no known medications. Encounters Start End Encounter Admission Attending Care Care Encounter Date/Time Date/Time Type Type Clinicians Facility Department ID 2019-08-31 2019-08-31 Outpatient [facility] [id number] 07:55:00 07:55:00 2019-05-29 2019-05-29 Emergency [facility] 7501 16:31:00 16:31:00 2019-05-11 2019-05-11 Outpatient [facility] 7500 06:00:00 06:00:00 Results Test Description Test Time Test Comments Text Results Atomic Results Result Comments AFB CULTURE + SMEAR 2019-04-16 13:51:00 Test Item Value Reference Range Comments CULTURE (BEAKER) (test cppp=8625) No acid-fast bacilli isolated in 42 days AFB SMEAR (BEAKER) (test sfql=756) No acid fast bacilli seen FUNGUS CULTURE + [id number] 09:38:00 Test Item Value Reference Range Comments CULTURE (BEAKER) (test No fungus isolated in 28 days bxqn=0853) FUNGUS SMEAR (BEAKER) (test No fungi seen xuys=1527) SURGICALLY OBTAINED CULTURE + GRAM [id number] 10:25:00 Test Item Value Reference Range Comments CULTURE (BEAKER) (test ESCHERICHIA COLI 1+ Escherichia coli zdfi=0614) Amikacin (test code=1) Ampicillin + Sulbactam (test code=6) Aztreonam (test code=32) Cefepime (test code=51) Cefoxitin (test code=68) Ceftazidime (test code=27) Ceftriaxone (test code=52) Ertapenem (test code=38) Gentamicin (test code=18) Levofloxacin (test code=22) Meropenem (test code=34) Nitrofurantoin (test code=23) Piperacillin + Tazobactam (test code=29) Tetracycline (test code=2) Tobramycin (test code=25) Trimethoprim + Sulfamethoxazole (test code=47) CULTURE (BEAKER) (test ENTEROBACTER CLOACAE <1+ Enterobacter okuk=5961) COMPLEX cloacae complexAmpC Positive Amikacin (test code=1) Aztreonam (test code=32) Cefepime (test code=51) Cefoxitin (test code=68) Ceftazidime (test code=27) Ceftriaxone (test code=52) Gentamicin (test code=18) Levofloxacin (test code=22) Meropenem (test code=34) Nitrofurantoin (test code=23) Piperacillin + Tazobactam (test code=29) Tetracycline (test code=2) Tobramycin (test code=25) Trimethoprim + Sulfamethoxazole (test code=47) CULTURE (BEAKER) (test 4+ Enterococcus bjfq=9483) species GRAM STAIN RESULT (BEAKER) <1+ WBCs (test fuqs=2307) GRAM STAIN RESULT (BEAKER) No organisms seen (test yzrk=311144) ANAEROBIC [id number] 02:58:00 Test Item Value Reference Range Comments CULTURE (BEAKER) (test syez=2956) No anaerobes isolated HEMOGLOBIN AND [id number] 10:32:00 Test Item Value Reference Range Comments HEMOGLOBIN (BEAKER) (test aefi=529) 7.6 GM/DL 11.2-15.7 HEMATOCRIT (BEAKER) (test xvog=277) 24.9 % 34.1-44.9 BASIC METABOLIC [id number] 06:01:00 Test Item Value Reference Range Comments SODIUM (BEAKER) (test 139 meq/L 136-145 ldhh=936) POTASSIUM (BEAKER) (test 4.9 meq/L 3.5-5.1 quer=518) CHLORIDE (BEAKER) (test 106 meq/L 98-107 auvg=630) CO2 (BEAKER) (test 29 meq/L 22-29 bqtl=541) BLOOD UREA NITROGEN 22 mg/dL 7-21 (BEAKER) (test jqhk=230) CREATININE (BEAKER) (test 2.59 mg/dL 0.57-1.25 aboh=130) GLUCOSE RANDOM (BEAKER) 94 mg/dL 70-105 (test jovl=384) CALCIUM (BEAKER) (test 8.8 mg/dL 8.4-10.2 fjha=017) EGFR (BEAKER) (test 22 mL/min/1.73 sq m ESTIMATED GFR IS NOT hceh=2221) ACCURATE CREATININE CLEARANCE IN PREDICTING GLOMERULAR FILTRATION RATE. ESTIMATED GFR IS NOT APPLICABLE FOR DIALYSIS PATIENTS. RAD, PELVIS, 1 OR 2 [id number] 11:58:00Reason for exam:->follow up for pelvis ORIFFINAL [...] surgical drain in place. Signed: Carlee Lindo [facility] Verified Date/ Time: 03/01/2019 11:58:06 Reading Location: [facility] Radiology ReadingRoom 11 :58 AMSPIN/CONCENTRATION [id number] 11:09:00 Test Item Value Reference Range Comments CONCENTRATION CHARGED (BEAKER) (test zuhc=6597) Done BASIC METABOLIC [id number] 07:44:00 Test Item Value Reference Range Comments SODIUM (BEAKER) (test 136 meq/L 136-145 yjdr=358) POTASSIUM (BEAKER) (test 4.5 meq/L 3.5-5.1 liie=080) CHLORIDE (BEAKER) (test 106 meq/L 98-107 bpbn=213) CO2 (BEAKER) (test 24 meq/L 22-29 vqfp=345) BLOOD UREA NITROGEN 30 mg/dL 7-21 (BEAKER) (test auel=763) CREATININE (BEAKER) (test 3.13 mg/dL 0.57-1.25 ogdw=213) GLUCOSE RANDOM (BEAKER) 81 mg/dL 70-105 (test exwn=687) CALCIUM (BEAKER) (test 8.7 mg/dL 8.4-10.2 hwqc=935) EGFR (BEAKER) (test 18 mL/min/1.73 sq m ESTIMATED GFR IS NOT gdzc=9967) ACCURATE CREATININE CLEARANCE IN PREDICTING GLOMERULAR FILTRATION RATE. ESTIMATED GFR IS NOT APPLICABLE FOR DIALYSIS PATIENTS. HEPATITIS B SURFACE [id number] 07:29:00 Test Item Value Reference Range Comments HEPATITIS B SURFACE ANTIGEN (2) (BEAKER) (test Nonreactive Nonreactive jzbu=7906) CBC W/PLT COUNT & AUTO [id number] 07:03:00 Test Item Value Reference Range Comments WHITE BLOOD CELL COUNT (BEAKER) (test pjoo=307) 7.4 K/ L 3.5-10.5 RED BLOOD CELL COUNT (BEAKER) (test ngjq=143) 2.74 M/ L 3.93-5.22 HEMOGLOBIN (BEAKER) (test dczq=752) 8.4 GM/DL 11.2-15.7 HEMATOCRIT (BEAKER) (test dhgj=253) 27.0 % 34.1-44.9 MEAN CORPUSCULAR VOLUME (BEAKER) (test lmuq=363) 98.5 fL 79.4-94.8 MEAN CORPUSCULAR HEMOGLOBIN (BEAKER) (test 30.7 pg 25.6-32.2 wnbg=602) MEAN CORPUSCULAR HEMOGLOBIN CONC (BEAKER) (test 31.1 GM/DL 32.2-35.5 ynkx=182) RED CELL DISTRIBUTION WIDTH (BEAKER) (test 16.6 % 11.7-14.4 bxjg=043) PLATELET COUNT (BEAKER) (test pdjq=414) 214 K/CU MM 150-450 MEAN PLATELET VOLUME (BEAKER) (test xywe=760) 10.7 fL 9.4-12.3 NUCLEATED RED BLOOD CELLS (BEAKER) (test 0 /100 WBC 0-0 vdif=943) NEUTROPHILS RELATIVE PERCENT (BEAKER) (test 75 % cfsx=482) LYMPHOCYTES RELATIVE PERCENT (BEAKER) (test 11 % nmki=422) MONOCYTES RELATIVE PERCENT (BEAKER) (test 9 % adai=322) EOSINOPHILS RELATIVE PERCENT (BEAKER) (test 5 % yraf=671) BASOPHILS RELATIVE PERCENT (BEAKER) (test 1 % nxsb=696) NEUTROPHILS ABSOLUTE COUNT (BEAKER) (test 5.56 K/ L 1.56-6.13 jauv=948) LYMPHOCYTES ABSOLUTE COUNT (BEAKER) (test 0.83 K/ L 1.18-3.74 natz=440) MONOCYTES ABSOLUTE COUNT (BEAKER) (test 0.63 K/ L 0.24-0.36 egmk=542) EOSINOPHILS ABSOLUTE COUNT (BEAKER) (test 0.35 K/ L 0.04-0.36 shwv=551) BASOPHILS ABSOLUTE COUNT (BEAKER) (test 0.04 K/ L 0.01-0.08 ayjv=232) IMMATURE GRANULOCYTES-RELATIVE PERCENT (BEAKER) 0 % 0-1 (test tyao=5399) BASIC METABOLIC [id number] 05:20:00 Test Item Value Reference Range Comments SODIUM (BEAKER) (test 138 meq/L 136-145 yreq=386) POTASSIUM (BEAKER) (test 3.9 meq/L 3.5-5.1 cjcm=822) CHLORIDE (BEAKER) (test 107 meq/L 98-107 tmth=000) CO2 (BEAKER) (test 27 meq/L 22-29 yygo=012) BLOOD UREA NITROGEN 26 mg/dL 7-21 (BEAKER) (test jhse=874) CREATININE (BEAKER) (test 2.26 mg/dL 0.57-1.25 vwto=469) GLUCOSE RANDOM (BEAKER) 101 mg/dL 70-105 (test zmee=442) CALCIUM (BEAKER) (test 8.4 mg/dL 8.4-10.2 adyd=516) EGFR (BEAKER) (test 26 mL/min/1.73 sq m ESTIMATED GFR IS NOT hnsp=5544) ACCURATE CREATININE CLEARANCE IN PREDICTING GLOMERULAR FILTRATION RATE. ESTIMATED GFR IS NOT APPLICABLE FOR DIALYSIS PATIENTS. BASIC METABOLIC [id number] 00:03:00 Test Item Value Reference Range Comments SODIUM (BEAKER) (test 140 meq/L 136-145 dznb=254) POTASSIUM (BEAKER) (test 3.9 meq/L 3.5-5.1 drxf=768) CHLORIDE (BEAKER) (test 106 meq/L 98-107 jhwt=213) CO2 (BEAKER) (test 28 meq/L 22-29 qldl=407) BLOOD UREA NITROGEN 24 mg/dL 7-21 (BEAKER) (test ndoy=999) CREATININE (BEAKER) (test 2.15 mg/dL 0.57-1.25 gqwu=289) GLUCOSE RANDOM (BEAKER) 128 mg/dL 70-105 (test tuyr=324) CALCIUM (BEAKER) (test 8.6 mg/dL 8.4-10.2 hpyk=313) EGFR (BEAKER) (test 27 mL/min/1.73 sq m ESTIMATED GFR IS NOT ozru=4027) ACCURATE CREATININE CLEARANCE IN PREDICTING GLOMERULAR FILTRATION RATE. ESTIMATED GFR IS NOT APPLICABLE FOR DIALYSIS PATIENTS. CBC W/PLT COUNT & AUTO [id number] 23:21:00 Test Item Value Reference Range Comments WHITE BLOOD CELL COUNT (BEAKER) (test mggy=305) 7.8 K/ L 3.5-10.5 RED BLOOD CELL COUNT (BEAKER) (test mrlv=478) 3.13 M/ L 3.93-5.22 HEMOGLOBIN (BEAKER) (test efsq=104) 9.6 GM/DL 11.2-15.7 HEMATOCRIT (BEAKER) (test zdha=890) 29.6 % 34.1-44.9 MEAN CORPUSCULAR VOLUME (BEAKER) (test qwzm=112) 94.6 fL 79.4-94.8 MEAN CORPUSCULAR HEMOGLOBIN (BEAKER) (test 30.7 pg 25.6-32.2 jwzy=098) MEAN CORPUSCULAR HEMOGLOBIN CONC (BEAKER) (test 32.4 GM/DL 32.2-35.5 qwcy=695) RED CELL DISTRIBUTION WIDTH (BEAKER) (test 16.7 % 11.7-14.4 vkrl=815) PLATELET COUNT (BEAKER) (test qcwf=627) 194 K/CU MM 150-450 MEAN PLATELET VOLUME (BEAKER) (test xkar=450) 10.3 fL 9.4-12.3 NUCLEATED RED BLOOD CELLS (BEAKER) (test 0 /100 WBC 0-0 xaso=609) NEUTROPHILS RELATIVE PERCENT (BEAKER) (test 73 % woum=506) LYMPHOCYTES RELATIVE PERCENT (BEAKER) (test 12 % rcwb=768) MONOCYTES RELATIVE PERCENT (BEAKER) (test 10 % pein=875) EOSINOPHILS RELATIVE PERCENT (BEAKER) (test 5 % jkgy=557) BASOPHILS RELATIVE PERCENT (BEAKER) (test 0 % tngd=154) NEUTROPHILS ABSOLUTE COUNT (BEAKER) (test 5.67 K/ L 1.56-6.13 tohd=154) LYMPHOCYTES ABSOLUTE COUNT (BEAKER) (test 0.91 K/ L 1.18-3.74 euuh=560) MONOCYTES ABSOLUTE COUNT (BEAKER) (test 0.77 K/ L 0.24-0.36 iwvt=087) EOSINOPHILS ABSOLUTE COUNT (BEAKER) (test 0.36 K/ L 0.04-0.36 ovxh=542) BASOPHILS ABSOLUTE COUNT (BEAKER) (test 0.03 K/ L 0.01-0.08 jlpj=661) IMMATURE GRANULOCYTES-RELATIVE PERCENT (BEAKER) 1 % 0-1 (test xbzw=8349) POCT-GLUCOSE [id number] 12:09:00 Test Item Value Reference Range Comments POC-GLUCOSE METER (BEAKER) 91 mg/dL 70-110 TESTED AT [address] (test cdxe=9897) [facility] [address] CBC W/PLT COUNT & AUTO [id number] 05:22:00 Test Item Value Reference Range Comments WHITE BLOOD CELL COUNT (BEAKER) (test bepg=362) 9.6 K/ L 3.5-10.5 RED BLOOD CELL COUNT (BEAKER) (test yzss=073) 2.83 M/ L 3.93-5.22 HEMOGLOBIN (BEAKER) (test zzor=242) 8.5 GM/DL 11.2-15.7 HEMATOCRIT (BEAKER) (test wfze=236) 26.5 % 34.1-44.9 MEAN CORPUSCULAR VOLUME (BEAKER) (test loiv=610) 93.6 fL 79.4-94.8 MEAN CORPUSCULAR HEMOGLOBIN (BEAKER) (test 30.0 pg 25.6-32.2 ludb=502) MEAN CORPUSCULAR HEMOGLOBIN CONC (BEAKER) (test 32.1 GM/DL 32.2-35.5 qika=454) RED CELL DISTRIBUTION WIDTH (BEAKER) (test 15.3 % 11.7-14.4 yqwh=039) PLATELET COUNT (BEAKER) (test dfwn=567) 186 K/CU MM 150-450 MEAN PLATELET VOLUME (BEAKER) (test dvuw=830) 9.9 fL 9.4-12.3 NUCLEATED RED BLOOD CELLS (BEAKER) (test 0 /100 WBC 0-0 ckvv=281) NEUTROPHILS RELATIVE PERCENT (BEAKER) (test 77 % vizk=544) LYMPHOCYTES RELATIVE PERCENT (BEAKER) (test 7 % xmws=627) MONOCYTES RELATIVE PERCENT (BEAKER) (test 9 % ylhp=762) EOSINOPHILS RELATIVE PERCENT (BEAKER) (test 6 % bspq=569) BASOPHILS RELATIVE PERCENT (BEAKER) (test 0 % mvmq=279) NEUTROPHILS ABSOLUTE COUNT (BEAKER) (test 7.32 K/ L 1.56-6.13 fiit=171) LYMPHOCYTES ABSOLUTE COUNT (BEAKER) (test 0.69 K/ L 1.18-3.74 pyjf=880) MONOCYTES ABSOLUTE COUNT (BEAKER) (test 0.88 K/ L 0.24-0.36 omxm=375) EOSINOPHILS ABSOLUTE COUNT (BEAKER) (test 0.56 K/ L 0.04-0.36 gmcr=436) BASOPHILS ABSOLUTE COUNT (BEAKER) (test 0.03 K/ L 0.01-0.08 josg=451) IMMATURE GRANULOCYTES-RELATIVE PERCENT (BEAKER) 1 % 0-1 (test vpdq=5452) BASIC METABOLIC [id number] 04:36:00 Test Item Value Reference Range Comments SODIUM (BEAKER) (test 138 meq/L 136-145 yrci=574) POTASSIUM (BEAKER) (test 4.4 meq/L 3.5-5.1 puzq=405) CHLORIDE (BEAKER) (test 106 meq/L 98-107 vlbk=998) CO2 (BEAKER) (test 25 meq/L 22-29 ftjg=495) BLOOD UREA NITROGEN 35 mg/dL 7-21 (BEAKER) (test husl=071) CREATININE (BEAKER) (test 3.09 mg/dL 0.57-1.25 ammr=792) GLUCOSE RANDOM (BEAKER) 95 mg/dL 70-105 (test lspn=282) CALCIUM (BEAKER) (test 8.6 mg/dL 8.4-10.2 jvwb=566) EGFR (BEAKER) (test 18 mL/min/1.73 sq m ESTIMATED GFR IS NOT ipln=2282) ACCURATE CREATININE CLEARANCE IN PREDICTING GLOMERULAR FILTRATION RATE. ESTIMATED GFR IS NOT APPLICABLE FOR DIALYSIS PATIENTS. [id number] 04:34:00 Test Item Value Reference Range Comments PHOSPHORUS (BEAKER) (test kvrj=705) 3.0 mg/dL 2.3-4.7 [id number] 04:34:00 Test Item Value Reference Range Comments MAGNESIUM (BEAKER) (test xgfj=299) 1.7 mg/dL 1.6-2.6 CALCIUM, [id number] 04:33:00 Test Item Value Reference Range Comments CALCIUM IONIZED (BEAKER) (test vowh=143) 1.03 mmol/L 1.12-1.27 PH, BLOOD (BEAKER) (test ebvx=4729) 7.51 POCT-GLUCOSE [id number] 21:41:00 Test Item Value Reference Range Comments POC-GLUCOSE METER (BEAKER) 170 mg/dL 70-110 TESTED AT [address] (test xgfv=9219) [place] [address] POCT-GLUCOSE [id number] 18:32:00 Test Item Value Reference Range Comments POC-GLUCOSE METER (BEAKER) 121 mg/dL 70-110 TESTED AT [address] (test skbt=6009) [place] [address] POCT-GLUCOSE [id number] 13:17:00 Test Item Value Reference Range Comments POC-GLUCOSE METER (BEAKER) 138 mg/dL 70-110 TESTED AT [address] (test xzcs=2049) [place] [id number] BASIC METABOLIC [id number] 11:40:00 Test Item Value Reference Range Comments SODIUM (BEAKER) (test 135 meq/L 136-145 oaiy=798) POTASSIUM (BEAKER) (test 3.7 meq/L 3.5-5.1 jfoz=543) CHLORIDE (BEAKER) (test 103 meq/L 98-107 beay=129) CO2 (BEAKER) (test 26 meq/L 22-29 hhwf=653) BLOOD UREA NITROGEN 22 mg/dL 7-21 (BEAKER) (test phpx=231) CREATININE (BEAKER) (test 2.16 mg/dL 0.57-1.25 zxsr=562) GLUCOSE RANDOM (BEAKER) 87 mg/dL 70-105 (test eldk=476) CALCIUM (BEAKER) (test 8.2 mg/dL 8.4-10.2 ojfz=797) EGFR (BEAKER) (test 27 mL/min/1.73 sq m ESTIMATED GFR IS NOT fdyx=6913) ACCURATE CREATININE CLEARANCE IN PREDICTING GLOMERULAR FILTRATION RATE. ESTIMATED GFR IS NOT APPLICABLE FOR DIALYSIS PATIENTS. [id number] 11:39:00 Test Item Value Reference Range Comments PHOSPHORUS (BEAKER) (test vfkb=375) 2.5 mg/dL 2.3-4.7 [id number] 11:39:00 Test Item Value Reference Range Comments MAGNESIUM (BEAKER) (test gula=610) 1.6 mg/dL 1.6-2.6 POCT-GLUCOSE [id number] 08:55:00 Test Item Value Reference Range Comments POC-GLUCOSE METER (BEAKER) 80 mg/dL 70-110 TESTED AT [facility] [address] [facility] (test heew=4748) [facility] [address] CALCIUM, [id number] 06:53:00 Test Item Value Reference Range Comments CALCIUM IONIZED (BEAKER) (test aogx=015) 0.98 mmol/L 1.12-1.27 PH, BLOOD (BEAKER) (test zywq=7904) 7.64 CBC W/PLT COUNT & AUTO [id number] 06:53:00 Test Item Value Reference Range Comments WHITE BLOOD CELL COUNT (BEAKER) (test xfym=933) 8.9 K/ L 3.5-10.5 RED BLOOD CELL COUNT (BEAKER) (test hteu=170) 2.79 M/ L 3.93-5.22 HEMOGLOBIN (BEAKER) (test osyo=832) 8.3 GM/DL 11.2-15.7 HEMATOCRIT (BEAKER) (test ikwa=502) 26.5 % 34.1-44.9 MEAN CORPUSCULAR VOLUME (BEAKER) (test frae=280) 95.0 fL 79.4-94.8 MEAN CORPUSCULAR HEMOGLOBIN (BEAKER) (test 29.7 pg 25.6-32.2 acxf=618) MEAN CORPUSCULAR HEMOGLOBIN CONC (BEAKER) (test 31.3 GM/DL 32.2-35.5 lsvb=713) RED CELL DISTRIBUTION WIDTH (BEAKER) (test 15.0 % 11.7-14.4 dcvy=966) PLATELET COUNT (BEAKER) (test vylu=559) 134 K/CU MM 150-450 MEAN PLATELET VOLUME (BEAKER) (test dzzv=685) 10.6 fL 9.4-12.3 NUCLEATED RED BLOOD CELLS (BEAKER) (test 0 /100 WBC 0-0 fukv=827) NEUTROPHILS RELATIVE PERCENT (BEAKER) (test 77 % pzcj=378) LYMPHOCYTES RELATIVE PERCENT (BEAKER) (test 6 % mdjo=960) MONOCYTES RELATIVE PERCENT (BEAKER) (test 9 % dudr=463) EOSINOPHILS RELATIVE PERCENT (BEAKER) (test 6 % xdry=067) BASOPHILS RELATIVE PERCENT (BEAKER) (test 1 % uwzo=671) NEUTROPHILS ABSOLUTE COUNT (BEAKER) (test 6.93 K/ L 1.56-6.13 qodg=413) LYMPHOCYTES ABSOLUTE COUNT (BEAKER) (test 0.55 K/ L 1.18-3.74 mfdj=021) MONOCYTES ABSOLUTE COUNT (BEAKER) (test 0.81 K/ L 0.24-0.36 skwo=877) EOSINOPHILS ABSOLUTE COUNT (BEAKER) (test 0.53 K/ L 0.04-0.36 tfaz=607) BASOPHILS ABSOLUTE COUNT (BEAKER) (test 0.05 K/ L 0.01-0.08 ukzh=186) IMMATURE GRANULOCYTES-RELATIVE PERCENT (BEAKER) 1 % 0-1 (test jyuj=3478) PLATELET AGGREGATION: FUNCTION [id number] 14:31:00 Test Item Value Reference Range Comments WEAK ADP RESULT(BEAKER) (test 41 % 60-91 zjzk=3396) PLATELET FUNCTION SCREEN 40-49% indicates moderate INTERP (BEAKER) (test platelet dysfunction kgpl=5387) [id number] Jada Freire MD (BEAKER) (test dxkc=7596) (electronic signature) PLATELET COUNT AGG (BEAKER) 111 K/CU MM 150-450 (test kknf=3802) Platelet Function Screen results may be falsely low with platelet counts<100, 000/cu mm.POCT-GLUCOSE [id number] 13:37:00 Test Item Value Reference Range Comments POC-GLUCOSE METER (BEAKER) 88 mg/dL 70-110 TESTED AT [facility] [address] (test htqs=6437) [facility] [address] HEPARIN [id number] 13:18:00 Test Item Value Reference Range Comments HEPARIN ANTIBODY (BEAKER) Positive-See Serotonin Release Negative (test ixyz=750) Assay for Confirmation HEPARIN ANTIBODY OD (BEAKER) 3.000 <0.400 (test vogx=2041) 4T TOTAL SCORE (BEAKER) 2 (test khti=9570) Probability of HIT based on scoring system: 6-8=High probability; 4-5= intermediate probability; 0-3=low probabilityPOCT-GLUCOSE [id number] 08:44: 00 Test Item Value Reference Range Comments POC-GLUCOSE METER (BEAKER) 111 mg/dL 70-110 TESTED AT [place] [id number] [facility] (test bgkx=1186) [facility] [address] COMPREHENSIVE METABOLIC [id number] 06:34:00 Test Item Value Reference Range Comments TOTAL PROTEIN (BEAKER) 5.7 gm/dL 6.0-8.3 (test jrim=912) ALBUMIN (BEAKER) (test 2.4 g/dL 3.5-5.0 agvz=8416) ALKALINE PHOSPHATASE 115 U/L 40-150 (BEAKER) (test uwzp=761) BILIRUBIN TOTAL (BEAKER) 0.6 mg/dL 0.2-1.2 (test mcsv=344) SODIUM (BEAKER) (test 136 meq/L 136-145 vcwk=746) POTASSIUM (BEAKER) (test 4.4 meq/L 3.5-5.1 kvxm=527) CHLORIDE (BEAKER) (test 105 meq/L 98-107 rawc=221) CO2 (BEAKER) (test 25 meq/L 22-29 tdpv=159) BLOOD UREA NITROGEN 40 mg/dL 7-21 (BEAKER) (test bjqr=201) CREATININE (BEAKER) (test 3.29 mg/dL 0.57-1.25 bxrh=032) GLUCOSE RANDOM (BEAKER) 91 mg/dL 70-105 (test hgrw=013) CALCIUM (BEAKER) (test 8.4 mg/dL 8.4-10.2 kbev=023) AST (SGOT) (BEAKER) (test 16 U/L 5-34 tbwy=679) ALT (SGPT) (BEAKER) (test 10 U/L 6-55 zszx=689) EGFR (BEAKER) (test 17 mL/min/1.73 sq m ESTIMATED GFR IS NOT mvll=7701) ACCURATE CREATININE CLEARANCE IN PREDICTING GLOMERULAR FILTRATION RATE. ESTIMATED GFR IS NOT APPLICABLE FOR DIALYSIS PATIENTS. [id number] 05:53:00 Test Item Value Reference Range Comments PHOSPHORUS (BEAKER) (test jlbj=032) 3.6 mg/dL 2.3-4.7 [id number] 05:53:00 Test Item Value Reference Range Comments MAGNESIUM (BEAKER) (test agke=779) 1.8 mg/dL 1.6-2.6 [id number] 05:32:00 Test Item Value Reference Range Comments PARTIAL THROMBOPLASTIN TIME (BEAKER) (test 42.2 seconds 22.5-36.0 lsxa=332) Draw baseline aPTT prior to infusionCBC W/PLT COUNT & AUTO [id number] 05:15:00 Test Item Value Reference Range Comments WHITE BLOOD CELL COUNT (BEAKER) (test xhda=411) 9.4 K/ L 3.5-10.5 RED BLOOD CELL COUNT (BEAKER) (test bxjm=252) 2.76 M/ L 3.93-5.22 HEMOGLOBIN (BEAKER) (test vgrt=031) 8.2 GM/DL 11.2-15.7 HEMATOCRIT (BEAKER) (test rpcq=102) 26.5 % 34.1-44.9 MEAN CORPUSCULAR VOLUME (BEAKER) (test hugn=379) 96.0 fL 79.4-94.8 MEAN CORPUSCULAR HEMOGLOBIN (BEAKER) (test 29.7 pg 25.6-32.2 wcqy=488) MEAN CORPUSCULAR HEMOGLOBIN CONC (BEAKER) (test 30.9 GM/DL 32.2-35.5 kctb=777) RED CELL DISTRIBUTION WIDTH (BEAKER) (test 15.1 % 11.7-14.4 xwyb=264) PLATELET COUNT (BEAKER) (test hjhk=256) 114 K/CU MM 150-450 MEAN PLATELET VOLUME (BEAKER) (test cbpg=879) 10.7 fL 9.4-12.3 NUCLEATED RED BLOOD CELLS (BEAKER) (test 0 /100 WBC 0-0 yvuy=747) NEUTROPHILS RELATIVE PERCENT (BEAKER) (test 76 % yyrn=845) LYMPHOCYTES RELATIVE PERCENT (BEAKER) (test 8 % gdou=306) MONOCYTES RELATIVE PERCENT (BEAKER) (test 8 % mpus=152) EOSINOPHILS RELATIVE PERCENT (BEAKER) (test 7 % stuy=759) BASOPHILS RELATIVE PERCENT (BEAKER) (test 0 % mjck=167) NEUTROPHILS ABSOLUTE COUNT (BEAKER) (test 7.16 K/ L 1.56-6.13 wqbo=308) LYMPHOCYTES ABSOLUTE COUNT (BEAKER) (test 0.75 K/ L 1.18-3.74 lzlr=306) MONOCYTES ABSOLUTE COUNT (BEAKER) (test 0.77 K/ L 0.24-0.36 ymav=016) EOSINOPHILS ABSOLUTE COUNT (BEAKER) (test 0.62 K/ L 0.04-0.36 idov=648) BASOPHILS ABSOLUTE COUNT (BEAKER) (test 0.04 K/ L 0.01-0.08 bxza=290) IMMATURE GRANULOCYTES-RELATIVE PERCENT (BEAKER) 0 % 0-1 (test qwyr=5330) POCT-GLUCOSE [id number] 21:21:00 Test Item Value Reference Range Comments POC-GLUCOSE METER (BEAKER) 168 mg/dL 70-110 TESTED AT [address] (test fqrt=9458) [place] [id number] POCT-GLUCOSE [id number] 16:46:00 Test Item Value Reference Range Comments POC-GLUCOSE METER (BEAKER) 135 mg/dL 70-110 TESTED AT [address] (test jbhc=9649) [place] [id number] POCT-GLUCOSE [id number] 12:31:00 Test Item Value Reference Range Comments POC-GLUCOSE METER (BEAKER) 96 mg/dL 70-110 TESTED AT [address] (test scln=5131) [place] [id number] POCT-GLUCOSE [id number] 08:23:00 Test Item Value Reference Range Comments POC-GLUCOSE METER (BEAKER) 97 mg/dL 70-110 TESTED AT [address] (test nvma=7684) [place] [id number] COMPREHENSIVE METABOLIC [id number] 06:20:00 Test Item Value Reference Range Comments TOTAL PROTEIN (BEAKER) 5.9 gm/dL 6.0-8.3 (test xvqx=545) ALBUMIN (BEAKER) (test 2.5 g/dL 3.5-5.0 jpwt=6131) ALKALINE PHOSPHATASE 120 U/L 40-150 (BEAKER) (test zvru=773) BILIRUBIN TOTAL (BEAKER) 0.7 mg/dL 0.2-1.2 (test mjai=573) SODIUM (BEAKER) (test 136 meq/L 136-145 mxrc=309) POTASSIUM (BEAKER) (test 4.4 meq/L 3.5-5.1 docg=957) CHLORIDE (BEAKER) (test 104 meq/L 98-107 abmf=931) CO2 (BEAKER) (test 27 meq/L 22-29 gfxs=387) BLOOD UREA NITROGEN 24 mg/dL 7-21 (BEAKER) (test ybdl=982) CREATININE (BEAKER) (test 2.09 mg/dL 0.57-1.25 vojz=767) GLUCOSE RANDOM (BEAKER) 92 mg/dL 70-105 (test qhed=127) CALCIUM (BEAKER) (test 8.5 mg/dL 8.4-10.2 igob=042) AST (SGOT) (BEAKER) (test 23 U/L 5-34 ahpf=562) ALT (SGPT) (BEAKER) (test 12 U/L 6-55 tdss=698) EGFR (BEAKER) (test 28 mL/min/1.73 sq m ESTIMATED GFR IS NOT ynxz=5437) ACCURATE CREATININE CLEARANCE IN PREDICTING GLOMERULAR FILTRATION RATE. ESTIMATED GFR IS NOT APPLICABLE FOR DIALYSIS PATIENTS. [id number] 06:17:00 Test Item Value Reference Range Comments PHOSPHORUS (BEAKER) (test tksv=217) 3.2 mg/dL 2.3-4.7 [id number] 06:17:00 Test Item Value Reference Range Comments MAGNESIUM (BEAKER) (test wgci=281) 1.6 mg/dL 1.6-2.6 CBC W/PLT COUNT & AUTO [id number] 05:54:00 Test Item Value Reference Range Comments WHITE BLOOD CELL COUNT (BEAKER) (test tafl=591) 10.2 K/ L 3.5-10.5 RED BLOOD CELL COUNT (BEAKER) (test fxbw=482) 2.93 M/ L 3.93-5.22 HEMOGLOBIN (BEAKER) (test sewn=931) 8.8 GM/DL 11.2-15.7 HEMATOCRIT (BEAKER) (test qgkj=119) 27.7 % 34.1-44.9 MEAN CORPUSCULAR VOLUME (BEAKER) (test hggk=039) 94.5 fL 79.4-94.8 MEAN CORPUSCULAR HEMOGLOBIN (BEAKER) (test 30.0 pg 25.6-32.2 mcme=329) MEAN CORPUSCULAR HEMOGLOBIN CONC (BEAKER) (test 31.8 GM/DL 32.2-35.5 vobm=223) RED CELL DISTRIBUTION WIDTH (BEAKER) (test 15.2 % 11.7-14.4 mdwg=299) PLATELET COUNT (BEAKER) (test qtga=133) 74 K/CU MM 150-450 MEAN PLATELET VOLUME (BEAKER) (test bcdi=452) 11.1 fL 9.4-12.3 NUCLEATED RED BLOOD CELLS (BEAKER) (test 0 /100 WBC 0-0 xdog=017) NEUTROPHILS RELATIVE PERCENT (BEAKER) (test 77 % mkmv=487) LYMPHOCYTES RELATIVE PERCENT (BEAKER) (test 6 % umcw=150) MONOCYTES RELATIVE PERCENT (BEAKER) (test 9 % qwxl=921) EOSINOPHILS RELATIVE PERCENT (BEAKER) (test 6 % homi=501) BASOPHILS RELATIVE PERCENT (BEAKER) (test 1 % lifg=430) NEUTROPHILS ABSOLUTE COUNT (BEAKER) (test 7.86 K/ L 1.56-6.13 ixif=334) LYMPHOCYTES ABSOLUTE COUNT (BEAKER) (test 0.61 K/ L 1.18-3.74 yrdi=647) MONOCYTES ABSOLUTE COUNT (BEAKER) (test lacf=366) 0.86 K/ L 0.24-0.36 EOSINOPHILS ABSOLUTE COUNT (BEAKER) (test 0.65 K/ L 0.04-0.36 suke=990) BASOPHILS ABSOLUTE COUNT (BEAKER) (test wpgx=407) 0.05 K/ L 0.01-0.08 IMMATURE GRANULOCYTES-RELATIVE PERCENT (BEAKER) 1 % 0-1 (test bzfi=8568) BLOOD [id number] 02:01:00 Test Item Value Reference Range Comments CULTURE (BEAKER) (test kvtu=0004) No growth in 5 days BLOOD [id number] 02:01:00 Test Item Value Reference Range Comments CULTURE (BEAKER) (test gzzi=5361) No growth in 5 days POCT-GLUCOSE [id number] 21:21:00 Test Item Value Reference Range Comments POC-GLUCOSE METER (BEAKER) 151 mg/dL 70-110 TESTED AT [facility] [address] (test cxrb=4016) [facility] [address] POCT-GLUCOSE [id number] 17:58:00 Test Item Value Reference Range Comments POC-GLUCOSE METER (BEAKER) 135 mg/dL 70-110 TESTED AT [facility] [address] (test nnjd=3348) [facility] [address] CT, [id number] 16:34:00FINAL REPORT CT scan of the abdomen [...] , and adrenal glands are unremarkable. Both [place] kidneys are atrophic in nature. The gallbladder [...] This is similar to previous.4. Atrophic appearing [place] kidneys.5. Diffuse anasarca. Bilateral pleural effusions. A verbal report wasgiven to the patient's nurse, Kael at the time of dictation. He was instructed to inform the physician. Signed: Leo Trivedi MDReport Verified Date/Time: 02/10/2019 16:34:31 Reading Location: [address] Ortho Consult Reading Room COMPREHENSIVE METABOLIC [id number] 05:11:00 Test Item Value Reference Range Comments TOTAL PROTEIN (BEAKER) 5.6 gm/dL 6.0-8.3 (test bjxi=382) ALBUMIN (BEAKER) (test 2.4 g/dL 3.5-5.0 bywl=8219) ALKALINE PHOSPHATASE 111 U/L 40-150 (BEAKER) (test crlx=487) BILIRUBIN TOTAL (BEAKER) 0.5 mg/dL 0.2-1.2 (test dunq=225) SODIUM (BEAKER) (test 138 meq/L 136-145 dlda=821) POTASSIUM (BEAKER) (test 4.8 meq/L 3.5-5.1 gngp=130) CHLORIDE (BEAKER) (test 106 meq/L 98-107 rpbp=589) CO2 (BEAKER) (test 26 meq/L 22-29 nydq=332) BLOOD UREA NITROGEN 27 mg/dL 7-21 (BEAKER) (test nqni=440) CREATININE (BEAKER) (test 2.47 mg/dL 0.57-1.25 kjow=311) GLUCOSE RANDOM (BEAKER) 91 mg/dL 70-105 (test sjae=346) CALCIUM (BEAKER) (test 8.5 mg/dL 8.4-10.2 kbyt=555) AST (SGOT) (BEAKER) (test 23 U/L 5-34 bxrz=767) ALT (SGPT) (BEAKER) (test 10 U/L 6-55 omkn=234) EGFR (BEAKER) (test 23 mL/min/1.73 sq m ESTIMATED GFR IS NOT ctqd=6582) ACCURATE CREATININE CLEARANCE IN PREDICTING GLOMERULAR FILTRATION RATE. ESTIMATED GFR IS NOT APPLICABLE FOR DIALYSIS PATIENTS. [id number] 05:09:00 Test Item Value Reference Range Comments PHOSPHORUS (BEAKER) (test byty=752) 2.9 mg/dL 2.3-4.7 [id number] 05:09:00 Test Item Value Reference Range Comments MAGNESIUM (BEAKER) (test wigi=456) 1.7 mg/dL 1.6-2.6 CBC W/PLT COUNT & AUTO [id number] 04:30:00 Test Item Value Reference Range Comments WHITE BLOOD CELL COUNT (BEAKER) (test xyhn=617) 8.7 K/ L 3.5-10.5 RED BLOOD CELL COUNT (BEAKER) (test jmqd=229) 2.30 M/ L 3.93-5.22 HEMOGLOBIN (BEAKER) (test usap=225) 6.9 GM/DL 11.2-15.7 HEMATOCRIT (BEAKER) (test izmy=425) 22.1 % 34.1-44.9 MEAN CORPUSCULAR VOLUME (BEAKER) (test prgq=680) 96.1 fL 79.4-94.8 MEAN CORPUSCULAR HEMOGLOBIN (BEAKER) (test 30.0 pg 25.6-32.2 upcr=240) MEAN CORPUSCULAR HEMOGLOBIN CONC (BEAKER) (test 31.2 GM/DL 32.2-35.5 rueg=319) RED CELL DISTRIBUTION WIDTH (BEAKER) (test 15.1 % 11.7-14.4 mdqp=689) PLATELET COUNT (BEAKER) (test dtnc=586) 92 K/CU MM 150-450 MEAN PLATELET VOLUME (BEAKER) (test diuq=120) 10.7 fL 9.4-12.3 NUCLEATED RED BLOOD CELLS (BEAKER) (test 0 /100 WBC 0-0 nipb=513) NEUTROPHILS RELATIVE PERCENT (BEAKER) (test 72 % jkqq=858) LYMPHOCYTES RELATIVE PERCENT (BEAKER) (test 10 % kvbx=828) MONOCYTES RELATIVE PERCENT (BEAKER) (test 11 % nacw=895) EOSINOPHILS RELATIVE PERCENT (BEAKER) (test 6 % swpu=094) BASOPHILS RELATIVE PERCENT (BEAKER) (test 0 % kbgm=758) NEUTROPHILS ABSOLUTE COUNT (BEAKER) (test 6.31 K/ L 1.56-6.13 ymsu=084) LYMPHOCYTES ABSOLUTE COUNT (BEAKER) (test 0.90 K/ L 1.18-3.74 ltci=048) MONOCYTES ABSOLUTE COUNT (BEAKER) (test peuf=992) 0.94 K/ L 0.24-0.36 EOSINOPHILS ABSOLUTE COUNT (BEAKER) (test 0.49 K/ L 0.04-0.36 lsyo=146) BASOPHILS ABSOLUTE COUNT (BEAKER) (test lamx=646) 0.03 K/ L 0.01-0.08 IMMATURE GRANULOCYTES-RELATIVE PERCENT (BEAKER) 1 % 0-1 (test sics=5665) POCT-GLUCOSE [id number] 21:29:00 Test Item Value Reference Range Comments POC-GLUCOSE METER (BEAKER) 146 mg/dL 70-110 TESTED AT [address] (test vygf=9683) [facility] [address] POCT-GLUCOSE [id number] 17:41:00 Test Item Value Reference Range Comments POC-GLUCOSE METER (BEAKER) 122 mg/dL 70-110 TESTED AT [address] (test qacy=3584) [facility] [address] POCT-GLUCOSE [id number] 12:40:00 Test Item Value Reference Range Comments POC-GLUCOSE METER (BEAKER) 108 mg/dL 70-110 TESTED AT [address] (test nbdp=1450) [facility] [address] POCT-GLUCOSE [id number] 07:13:00 Test Item Value Reference Range Comments POC-GLUCOSE METER (BEAKER) 92 mg/dL 70-110 TESTED AT [address] (test tpjy=6226) [facility] [address] B-TYPE NATRIURETIC FACTOR (BNP)2019-02-09 05:36:00 Test Item Value Reference Range Comments B-TYPE NATRIURETIC PEPTIDE (BEAKER) (test 3204 pg/mL 0-100 jsjr=022) COMPREHENSIVE METABOLIC [id number] 04:57:00 Test Item Value Reference Range Comments TOTAL PROTEIN (BEAKER) 5.8 gm/dL 6.0-8.3 (test rwhs=732) ALBUMIN (BEAKER) (test 2.4 g/dL 3.5-5.0 jkli=5831) ALKALINE PHOSPHATASE 110 U/L 40-150 (BEAKER) (test fkxd=057) BILIRUBIN TOTAL (BEAKER) 0.5 mg/dL 0.2-1.2 (test ghrs=473) SODIUM (BEAKER) (test 136 meq/L 136-145 jupb=019) POTASSIUM (BEAKER) (test 4.9 meq/L 3.5-5.1 hjmk=671) CHLORIDE (BEAKER) (test 102 meq/L 98-107 glqr=448) CO2 (BEAKER) (test 29 meq/L 22-29 gapm=194) BLOOD UREA NITROGEN 37 mg/dL 7-21 (BEAKER) (test myip=630) CREATININE (BEAKER) (test 3.21 mg/dL 0.57-1.25 mfss=723) GLUCOSE RANDOM (BEAKER) 99 mg/dL 70-105 (test jerp=822) CALCIUM (BEAKER) (test 8.5 mg/dL 8.4-10.2 kugc=219) AST (SGOT) (BEAKER) (test 15 U/L 5-34 dyyu=711) ALT (SGPT) (BEAKER) (test 7 U/L 6-55 brro=681) EGFR (BEAKER) (test 17 mL/min/1.73 sq m ESTIMATED GFR IS NOT dcvc=4414) ACCURATE CREATININE CLEARANCE IN PREDICTING GLOMERULAR FILTRATION RATE. ESTIMATED GFR IS NOT APPLICABLE FOR DIALYSIS PATIENTS. CALCIUM, [id number] 04:36:00 Test Item Value Reference Range Comments CALCIUM IONIZED (BEAKER) (test mihq=300) 1.09 mmol/L 1.12-1.27 PH, BLOOD (BEAKER) (test ryid=7762) 7.44 [id number] 04:29:00 Test Item Value Reference Range Comments PHOSPHORUS (BEAKER) (test jgby=065) 2.9 mg/dL 2.3-4.7 [id number] 04:29:00 Test Item Value Reference Range Comments MAGNESIUM (BEAKER) (test zcpj=187) 1.9 mg/dL 1.6-2.6 CBC W/PLT COUNT & AUTO [id number] 03:19:00 Test Item Value Reference Range Comments WHITE BLOOD CELL COUNT (BEAKER) (test uqgb=791) 10.2 K/ L 3.5-10.5 RED BLOOD CELL COUNT (BEAKER) (test pets=194) 2.45 M/ L 3.93-5.22 HEMOGLOBIN (BEAKER) (test oixq=968) 7.3 GM/DL 11.2-15.7 HEMATOCRIT (BEAKER) (test huww=036) 23.4 % 34.1-44.9 MEAN CORPUSCULAR VOLUME (BEAKER) (test pzki=804) 95.5 fL 79.4-94.8 MEAN CORPUSCULAR HEMOGLOBIN (BEAKER) (test 29.8 pg 25.6-32.2 yynq=353) MEAN CORPUSCULAR HEMOGLOBIN CONC (BEAKER) (test 31.2 GM/DL 32.2-35.5 mzjp=953) RED CELL DISTRIBUTION WIDTH (BEAKER) (test 14.8 % 11.7-14.4 ncat=240) PLATELET COUNT (BEAKER) (test lusk=689) 135 K/CU MM 150-450 MEAN PLATELET VOLUME (BEAKER) (test vtmg=333) 10.3 fL 9.4-12.3 NUCLEATED RED BLOOD CELLS (BEAKER) (test 0 /100 WBC 0-0 smaw=857) NEUTROPHILS RELATIVE PERCENT (BEAKER) (test 76 % bsgx=704) LYMPHOCYTES RELATIVE PERCENT (BEAKER) (test 9 % wtpk=568) MONOCYTES RELATIVE PERCENT (BEAKER) (test 9 % fohy=408) EOSINOPHILS RELATIVE PERCENT (BEAKER) (test 5 % cepl=744) BASOPHILS RELATIVE PERCENT (BEAKER) (test 0 % rlyx=984) NEUTROPHILS ABSOLUTE COUNT (BEAKER) (test 7.77 K/ L 1.56-6.13 mzuv=346) LYMPHOCYTES ABSOLUTE COUNT (BEAKER) (test 0.90 K/ L 1.18-3.74 xkmv=836) MONOCYTES ABSOLUTE COUNT (BEAKER) (test 0.94 K/ L 0.24-0.36 jqfn=070) EOSINOPHILS ABSOLUTE COUNT (BEAKER) (test 0.49 K/ L 0.04-0.36 xmkf=739) BASOPHILS ABSOLUTE COUNT (BEAKER) (test 0.04 K/ L 0.01-0.08 lkfm=372) IMMATURE GRANULOCYTES-RELATIVE PERCENT (BEAKER) 1 % 0-1 (test whqt=5689) POCT-GLUCOSE [id number] 21:29:00 Test Item Value Reference Range Comments POC-GLUCOSE METER (BEAKER) 147 mg/dL 70-110 TESTED AT [facility] [address] (test iqfc=7496) [facility] [address] POCT-GLUCOSE [id number] 13:45:00 Test Item Value Reference Range Comments POC-GLUCOSE METER (BEAKER) 117 mg/dL 70-110 TESTED AT [facility] [address] (test dqke=4863) [facility] [address] POCT-GLUCOSE [id number] 07:11:00 Test Item Value Reference Range Comments POC-GLUCOSE METER (BEAKER) 100 mg/dL 70-110 TESTED AT [address] (test vwok=7140) [facility] [address] COMPREHENSIVE METABOLIC [id number] 05:53:00 Test Item Value Reference Range Comments TOTAL PROTEIN (BEAKER) 5.8 gm/dL 6.0-8.3 (test vwch=237) ALBUMIN (BEAKER) (test 2.4 g/dL 3.5-5.0 xgih=0541) ALKALINE PHOSPHATASE 103 U/L 40-150 (BEAKER) (test nwun=365) BILIRUBIN TOTAL (BEAKER) 0.5 mg/dL 0.2-1.2 (test wrht=173) SODIUM (BEAKER) (test 138 meq/L 136-145 gqin=112) POTASSIUM (BEAKER) (test 4.5 meq/L 3.5-5.1 vlcj=717) CHLORIDE (BEAKER) (test 102 meq/L 98-107 rroz=813) CO2 (BEAKER) (test 30 meq/L 22-29 lnbh=770) BLOOD UREA NITROGEN 25 mg/dL 7-21 (BEAKER) (test qyyq=925) CREATININE (BEAKER) (test 2.40 mg/dL 0.57-1.25 qvnf=065) GLUCOSE RANDOM (BEAKER) 97 mg/dL 70-105 (test fhpg=619) CALCIUM (BEAKER) (test 8.3 mg/dL 8.4-10.2 efxj=372) AST (SGOT) (BEAKER) (test 16 U/L 5-34 kpbd=598) ALT (SGPT) (BEAKER) (test < U/L 6-55 dxwk=248) EGFR (BEAKER) (test 24 mL/min/1.73 sq m ESTIMATED GFR IS NOT iajz=2346) ACCURATE CREATININE CLEARANCE IN PREDICTING GLOMERULAR FILTRATION RATE. ESTIMATED GFR IS NOT APPLICABLE FOR DIALYSIS PATIENTS. [id number] 05:51:00 Test Item Value Reference Range Comments PHOSPHORUS (BEAKER) (test bxlt=561) 2.8 mg/dL 2.3-4.7 [id number] 05:51:00 Test Item Value Reference Range Comments MAGNESIUM (BEAKER) (test rzdf=703) 1.8 mg/dL 1.6-2.6 CBC W/PLT COUNT & AUTO [id number] 05:01:00 Test Item Value Reference Range Comments WHITE BLOOD CELL COUNT (BEAKER) (test ufsl=280) 11.5 K/ L 3.5-10.5 RED BLOOD CELL COUNT (BEAKER) (test qvus=085) 2.53 M/ L 3.93-5.22 HEMOGLOBIN (BEAKER) (test ulee=586) 7.5 GM/DL 11.2-15.7 HEMATOCRIT (BEAKER) (test khww=212) 23.8 % 34.1-44.9 MEAN CORPUSCULAR VOLUME (BEAKER) (test albo=670) 94.1 fL 79.4-94.8 MEAN CORPUSCULAR HEMOGLOBIN (BEAKER) (test 29.6 pg 25.6-32.2 ewmo=854) MEAN CORPUSCULAR HEMOGLOBIN CONC (BEAKER) (test 31.5 GM/DL 32.2-35.5 boxe=935) RED CELL DISTRIBUTION WIDTH (BEAKER) (test 15.0 % 11.7-14.4 mhvw=038) PLATELET COUNT (BEAKER) (test jsnl=056) 116 K/CU MM 150-450 MEAN PLATELET VOLUME (BEAKER) (test kuac=255) 10.4 fL 9.4-12.3 NUCLEATED RED BLOOD CELLS (BEAKER) (test 0 /100 WBC 0-0 mksk=580) NEUTROPHILS RELATIVE PERCENT (BEAKER) (test 80 % zstq=269) LYMPHOCYTES RELATIVE PERCENT (BEAKER) (test 6 % krsv=023) MONOCYTES RELATIVE PERCENT (BEAKER) (test 8 % bjbq=741) EOSINOPHILS RELATIVE PERCENT (BEAKER) (test 5 % rkxw=787) BASOPHILS RELATIVE PERCENT (BEAKER) (test 0 % twrr=749) NEUTROPHILS ABSOLUTE COUNT (BEAKER) (test 9.23 K/ L 1.56-6.13 ejju=516) LYMPHOCYTES ABSOLUTE COUNT (BEAKER) (test 0.73 K/ L 1.18-3.74 twxr=579) MONOCYTES ABSOLUTE COUNT (BEAKER) (test 0.92 K/ L 0.24-0.36 gybh=450) EOSINOPHILS ABSOLUTE COUNT (BEAKER) (test 0.54 K/ L 0.04-0.36 lkax=829) BASOPHILS ABSOLUTE COUNT (BEAKER) (test 0.05 K/ L 0.01-0.08 weqt=211) IMMATURE GRANULOCYTES-RELATIVE PERCENT (BEAKER) 1 % 0-1 (test yoml=5838) POCT-GLUCOSE [id number] 21:31:00 Test Item Value Reference Range Comments POC-GLUCOSE METER (BEAKER) 115 mg/dL 70-110 TESTED AT [address] (test ofyo=3357) [place] [id number] HEMOGLOBIN AND [id number] 13:26:00 Test Item Value Reference Range Comments HEMOGLOBIN (BEAKER) (test wgbu=472) 8.3 GM/DL 11.2-15.7 HEMATOCRIT (BEAKER) (test akgw=492) 26.1 % 34.1-44.9 CREATININE, RANDOM [id number] 10:02:00 Test Item Value Reference Range Comments CREATININE URINE (BEAKER) (test lygq=253) 19.0 mg/dL Qc ok in unity Reference Range: No NormalsPOCT-GLUCOSE [id number] 08:47:00 Test Item Value Reference Range Comments POC-GLUCOSE METER (BEAKER) 125 mg/dL 70-110 TESTED AT [address] (test atom=1403) [place] [id number] COMPREHENSIVE METABOLIC [id number] 06:12:00 Test Item Value Reference Range Comments TOTAL PROTEIN (BEAKER) 5.9 gm/dL 6.0-8.3 (test eqvo=124) ALBUMIN (BEAKER) (test 2.5 g/dL 3.5-5.0 nlhr=8239) ALKALINE PHOSPHATASE 95 U/L 40-150 (BEAKER) (test opkj=200) BILIRUBIN TOTAL (BEAKER) 0.6 mg/dL 0.2-1.2 (test levh=082) SODIUM (BEAKER) (test 135 meq/L 136-145 tclm=460) POTASSIUM (BEAKER) (test 4.7 meq/L 3.5-5.1 cvsl=294) CHLORIDE (BEAKER) (test 104 meq/L 98-107 wwdi=230) CO2 (BEAKER) (test 27 meq/L 22-29 nlmi=052) BLOOD UREA NITROGEN 36 mg/dL 7-21 (BEAKER) (test egkt=936) CREATININE (BEAKER) (test 3.35 mg/dL 0.57-1.25 rxqk=062) GLUCOSE RANDOM (BEAKER) 99 mg/dL 70-105 (test csmc=392) CALCIUM (BEAKER) (test 8.6 mg/dL 8.4-10.2 tjoo=116) AST (SGOT) (BEAKER) (test 13 U/L 5-34 iimf=081) ALT (SGPT) (BEAKER) (test < U/L 6-55 mnuv=679) EGFR (BEAKER) (test 16 mL/min/1.73 sq m ESTIMATED GFR IS NOT gbdv=9226) ACCURATE CREATININE CLEARANCE IN PREDICTING GLOMERULAR FILTRATION RATE. ESTIMATED GFR IS NOT APPLICABLE FOR DIALYSIS PATIENTS. [id number] 05:59:00 Test Item Value Reference Range Comments PHOSPHORUS (BEAKER) (test dkvl=205) 3.1 mg/dL 2.3-4.7 [id number] 05:59:00 Test Item Value Reference Range Comments MAGNESIUM (BEAKER) (test ryrc=624) 2.1 mg/dL 1.6-2.6 CBC W/PLT COUNT & AUTO [id number] 05:43:00 Test Item Value Reference Range Comments WHITE BLOOD CELL COUNT (BEAKER) (test aegt=984) 12.2 K/ L 3.5-10.5 RED BLOOD CELL COUNT (BEAKER) (test rvpl=918) 2.65 M/ L 3.93-5.22 HEMOGLOBIN (BEAKER) (test gzde=998) 7.9 GM/DL 11.2-15.7 HEMATOCRIT (BEAKER) (test ilvm=447) 24.4 % 34.1-44.9 MEAN CORPUSCULAR VOLUME (BEAKER) (test xidl=362) 92.1 fL 79.4-94.8 MEAN CORPUSCULAR HEMOGLOBIN (BEAKER) (test 29.8 pg 25.6-32.2 bwov=986) MEAN CORPUSCULAR HEMOGLOBIN CONC (BEAKER) (test 32.4 GM/DL 32.2-35.5 iier=520) RED CELL DISTRIBUTION WIDTH (BEAKER) (test 15.0 % 11.7-14.4 gmsg=199) PLATELET COUNT (BEAKER) (test mptz=491) 162 K/CU MM 150-450 MEAN PLATELET VOLUME (BEAKER) (test micj=967) 10.1 fL 9.4-12.3 NUCLEATED RED BLOOD CELLS (BEAKER) (test 0 /100 WBC 0-0 bkxl=127) NEUTROPHILS RELATIVE PERCENT (BEAKER) (test 80 % hins=174) LYMPHOCYTES RELATIVE PERCENT (BEAKER) (test 7 % qczc=080) MONOCYTES RELATIVE PERCENT (BEAKER) (test 8 % hubz=839) EOSINOPHILS RELATIVE PERCENT (BEAKER) (test 4 % drml=048) BASOPHILS RELATIVE PERCENT (BEAKER) (test 1 % gghz=833) NEUTROPHILS ABSOLUTE COUNT (BEAKER) (test 9.71 K/ L 1.56-6.13 gpem=923) LYMPHOCYTES ABSOLUTE COUNT (BEAKER) (test 0.90 K/ L 1.18-3.74 doyr=894) MONOCYTES ABSOLUTE COUNT (BEAKER) (test 0.93 K/ L 0.24-0.36 qzhd=839) EOSINOPHILS ABSOLUTE COUNT (BEAKER) (test 0.53 K/ L 0.04-0.36 ciqd=576) BASOPHILS ABSOLUTE COUNT (BEAKER) (test 0.06 K/ L 0.01-0.08 rvid=049) IMMATURE GRANULOCYTES-RELATIVE PERCENT (BEAKER) 1 % 0-1 (test okbe=9136) PROTEIN, RANDOM [id number] 05:03:00 Test Item Value Reference Range Comments PROTEIN, URINE (BEAKER) (test vukr=5515) 178 mg/dL 0-14 POCT-GLUCOSE [id number] 20:57:00 Test Item Value Reference Range Comments POC-GLUCOSE METER (BEAKER) 176 mg/dL 70-110 TESTED AT [facility] [address] (test pezx=3921) [facility] [address] HEMOGLOBIN AND [id number] 14:38:00 Test Item Value Reference Range Comments HEMOGLOBIN (BEAKER) (test oqat=802) 7.7 GM/DL 11.2-15.7 HEMATOCRIT (BEAKER) (test govb=418) 24.0 % 34.1-44.9 POCT-GLUCOSE [id number] 14:15:00 Test Item Value Reference Range Comments POC-GLUCOSE METER (BEAKER) 137 mg/dL 70-110 TESTED AT [address] (test zuwv=2234) [facility] [address] URINALYSIS W/ [id number] 10:27:00 Test Item Value Reference Range Comments COLOR (BEAKER) (test shnm=710) Yellow CLARITY (BEAKER) (test xkmz=792) Clear SPECIFIC GRAVITY UA (BEAKER) (test obnp=770) 1.006 1.001-1.035 PH UA (BEAKER) (test axqw=788) 8.5 5.0-8.0 PROTEIN UA (BEAKER) (test zhtt=762) 600 mg/dL Negative GLUCOSE UA (BEAKER) (test rulb=268) 300 mg/dL Negative KETONES UA (BEAKER) (test pgav=459) Negative Negative BILIRUBIN UA (BEAKER) (test gjkc=913) Negative Negative BLOOD UA (BEAKER) (test hpqd=004) Negative Negative NITRITE UA (BEAKER) (test sfid=269) Negative Negative LEUKOCYTE ESTERASE UA (BEAKER) (test prnt=511) Negative Negative UROBILINOGEN UA (BEAKER) (test nhdr=706) 0.2 mg/dL 0.2-1.0 RBC UA (BEAKER) (test urur=326) 2 /HPF WBC UA (BEAKER) (test xjjr=807) 2 /HPF SQUAMOUS EPITHELIAL (BEAKER) (test hbxj=634) 1 /HPF SOURCE(BEAKER) (test zmig=8789) POCT-GLUCOSE [id number] 09:22:00 Test Item Value Reference Range Comments POC-GLUCOSE METER (BEAKER) 167 mg/dL 70-110 TESTED AT [address] (test topc=2007) [place] [id number] RAD, CHEST, 1 VIEW, NON [id number] 08:40:00Reason for exam:->post extubationShould this be performed [...] Verified Date/Time: 02/06/2019 08 :40:46 Reading Location: [facility] Radiology Reading Room CALCIUM, [id number] 06: 33:00 Test Item Value Reference Range Comments CALCIUM IONIZED (BEAKER) (test jthu=524) 1.05 mmol/L 1.12-1.27 PH, BLOOD (BEAKER) (test uzfq=6879) 7.52 COMPREHENSIVE METABOLIC [id number] 06:22:00 Test Item Value Reference Range Comments TOTAL PROTEIN (BEAKER) 5.6 gm/dL 6.0-8.3 (test zeus=690) ALBUMIN (BEAKER) (test 2.3 g/dL 3.5-5.0 fick=2165) ALKALINE PHOSPHATASE 90 U/L 40-150 (BEAKER) (test pjnd=123) BILIRUBIN TOTAL (BEAKER) 0.6 mg/dL 0.2-1.2 (test znyf=446) SODIUM (BEAKER) (test 139 meq/L 136-145 xbry=582) POTASSIUM (BEAKER) (test 4.3 meq/L 3.5-5.1 ieea=738) CHLORIDE (BEAKER) (test 105 meq/L 98-107 kdxw=099) CO2 (BEAKER) (test 28 meq/L 22-29 wupe=848) BLOOD UREA NITROGEN 26 mg/dL 7-21 (BEAKER) (test efip=628) CREATININE (BEAKER) (test 2.52 mg/dL 0.57-1.25 pyso=857) GLUCOSE RANDOM (BEAKER) 92 mg/dL 70-105 (test eube=500) CALCIUM (BEAKER) (test 8.4 mg/dL 8.4-10.2 bokd=561) AST (SGOT) (BEAKER) (test 15 U/L 5-34 oarb=627) ALT (SGPT) (BEAKER) (test 6 U/L 6-55 vzvw=527) EGFR (BEAKER) (test 23 mL/min/1.73 sq m ESTIMATED GFR IS NOT frsc=9062) ACCURATE CREATININE CLEARANCE IN PREDICTING GLOMERULAR FILTRATION RATE. ESTIMATED GFR IS NOT APPLICABLE FOR DIALYSIS PATIENTS. [id number] 06:16:00 Test Item Value Reference Range Comments PHOSPHORUS (BEAKER) (test ohxh=151) 2.3 mg/dL 2.3-4.7 [id number] 06:16:00 Test Item Value Reference Range Comments MAGNESIUM (BEAKER) (test mmio=851) 1.6 mg/dL 1.6-2.6 CBC W/PLT COUNT & AUTO [id number] 05:53:00 Test Item Value Reference Range Comments WHITE BLOOD CELL COUNT (BEAKER) (test rktp=214) 13.6 K/ L 3.5-10.5 RED BLOOD CELL COUNT (BEAKER) (test flul=527) 2.60 M/ L 3.93-5.22 HEMOGLOBIN (BEAKER) (test glok=242) 7.7 GM/DL 11.2-15.7 HEMATOCRIT (BEAKER) (test yhep=034) 23.7 % 34.1-44.9 MEAN CORPUSCULAR VOLUME (BEAKER) (test kkme=116) 91.2 fL 79.4-94.8 MEAN CORPUSCULAR HEMOGLOBIN (BEAKER) (test 29.6 pg 25.6-32.2 uzvs=589) MEAN CORPUSCULAR HEMOGLOBIN CONC (BEAKER) (test 32.5 GM/DL 32.2-35.5 zkse=914) RED CELL DISTRIBUTION WIDTH (BEAKER) (test 14.9 % 11.7-14.4 wnsb=018) PLATELET COUNT (BEAKER) (test iqlk=267) 143 K/CU MM 150-450 MEAN PLATELET VOLUME (BEAKER) (test npsa=175) 10.5 fL 9.4-12.3 NUCLEATED RED BLOOD CELLS (BEAKER) (test 0 /100 WBC 0-0 dqcr=160) NEUTROPHILS RELATIVE PERCENT (BEAKER) (test 80 % teuc=819) LYMPHOCYTES RELATIVE PERCENT (BEAKER) (test 9 % njtt=341) MONOCYTES RELATIVE PERCENT (BEAKER) (test 6 % txft=863) EOSINOPHILS RELATIVE PERCENT (BEAKER) (test 4 % aedv=851) BASOPHILS RELATIVE PERCENT (BEAKER) (test 1 % nnmo=718) NEUTROPHILS ABSOLUTE COUNT (BEAKER) (test 10.84 K/ L 1.56-6.13 upom=371) LYMPHOCYTES ABSOLUTE COUNT (BEAKER) (test 1.16 K/ L 1.18-3.74 znhh=862) MONOCYTES ABSOLUTE COUNT (BEAKER) (test 0.85 K/ L 0.24-0.36 pikv=047) EOSINOPHILS ABSOLUTE COUNT (BEAKER) (test 0.56 K/ L 0.04-0.36 aife=219) BASOPHILS ABSOLUTE COUNT (BEAKER) (test 0.07 K/ L 0.01-0.08 laea=001) IMMATURE GRANULOCYTES-RELATIVE PERCENT (BEAKER) 1 % 0-1 (test eydp=9401) POCT-GLUCOSE [id number] 20:58:00 Test Item Value Reference Range Comments POC-GLUCOSE METER (BEAKER) 114 mg/dL 70-110 TESTED AT [address] (test lfmf=1352) [place] [address] POCT-GLUCOSE [id number] 11:44:00 Test Item Value Reference Range Comments POC-GLUCOSE METER (BEAKER) 160 mg/dL 70-110 TESTED AT [address] (test epwm=2169) [place] [address] RAD, CHEST, 1 VIEW, NON [id number] 08:50:00Reason for exam:->post extubationShould this be performed [...] MDReport Verified Date/Time: 02/05/2019 08:50:57 Reading Location: [facility] Radiology Reading Room POCT-GLUCOSE [id number] 07:33:00 Test Item Value Reference Range Comments POC-GLUCOSE METER (BEAKER) 147 mg/dL 70-110 TESTED AT [address] (test mrsc=4951) [place] [address] [id number] 06:56:00 Test Item Value Reference Range Comments PHOSPHORUS (BEAKER) (test idqc=772) 2.9 mg/dL 2.3-4.7 [id number] 06:56:00 Test Item Value Reference Range Comments MAGNESIUM (BEAKER) (test laxj=585) 1.7 mg/dL 1.6-2.6 COMPREHENSIVE METABOLIC [id number] 06:56:00 Test Item Value Reference Range Comments TOTAL PROTEIN (BEAKER) 6.0 gm/dL 6.0-8.3 (test ohos=069) ALBUMIN (BEAKER) (test 2.5 g/dL 3.5-5.0 ndvg=1070) ALKALINE PHOSPHATASE 92 U/L 40-150 (BEAKER) (test vnqb=273) BILIRUBIN TOTAL (BEAKER) 0.7 mg/dL 0.2-1.2 (test evte=177) SODIUM (BEAKER) (test 138 meq/L 136-145 xngd=031) POTASSIUM (BEAKER) (test 4.5 meq/L 3.5-5.1 yfdw=503) CHLORIDE (BEAKER) (test 105 meq/L 98-107 mzkw=523) CO2 (BEAKER) (test 28 meq/L 22-29 dvbr=056) BLOOD UREA NITROGEN 36 mg/dL 7-21 (BEAKER) (test uayq=265) CREATININE (BEAKER) (test 3.47 mg/dL 0.57-1.25 ekut=401) GLUCOSE RANDOM (BEAKER) 128 mg/dL 70-105 (test yaig=048) CALCIUM (BEAKER) (test 8.7 mg/dL 8.4-10.2 wcuw=227) AST (SGOT) (BEAKER) (test 17 U/L 5-34 jyqx=734) ALT (SGPT) (BEAKER) (test 8 U/L 6-55 youe=660) EGFR (BEAKER) (test 16 mL/min/1.73 sq m ESTIMATED GFR IS NOT epxv=2410) ACCURATE CREATININE CLEARANCE IN PREDICTING GLOMERULAR FILTRATION RATE. ESTIMATED GFR IS NOT APPLICABLE FOR DIALYSIS PATIENTS. CBC W/PLT COUNT & AUTO [id number] 06:16:00 Test Item Value Reference Range Comments WHITE BLOOD CELL COUNT (BEAKER) (test dqbc=056) 18.1 K/ L 3.5-10.5 RED BLOOD CELL COUNT (BEAKER) (test fnoa=853) 2.84 M/ L 3.93-5.22 HEMOGLOBIN (BEAKER) (test mspq=932) 8.5 GM/DL 11.2-15.7 HEMATOCRIT (BEAKER) (test ldjf=119) 25.4 % 34.1-44.9 MEAN CORPUSCULAR VOLUME (BEAKER) (test vbln=151) 89.4 fL 79.4-94.8 MEAN CORPUSCULAR HEMOGLOBIN (BEAKER) (test 29.9 pg 25.6-32.2 yaqe=738) MEAN CORPUSCULAR HEMOGLOBIN CONC (BEAKER) (test 33.5 GM/DL 32.2-35.5 ooft=580) RED CELL DISTRIBUTION WIDTH (BEAKER) (test 15.0 % 11.7-14.4 lxex=758) PLATELET COUNT (BEAKER) (test ikhf=971) 183 K/CU MM 150-450 MEAN PLATELET VOLUME (BEAKER) (test yhpv=021) 10.0 fL 9.4-12.3 NUCLEATED RED BLOOD CELLS (BEAKER) (test 0 /100 WBC 0-0 lcrj=050) NEUTROPHILS RELATIVE PERCENT (BEAKER) (test 85 % bkfn=671) LYMPHOCYTES RELATIVE PERCENT (BEAKER) (test 7 % oiyq=393) MONOCYTES RELATIVE PERCENT (BEAKER) (test 5 % jayj=513) EOSINOPHILS RELATIVE PERCENT (BEAKER) (test 3 % hrfe=274) BASOPHILS RELATIVE PERCENT (BEAKER) (test 0 % ydub=622) NEUTROPHILS ABSOLUTE COUNT (BEAKER) (test 15.36 K/ L 1.56-6.13 agmu=324) LYMPHOCYTES ABSOLUTE COUNT (BEAKER) (test 1.17 K/ L 1.18-3.74 gilo=875) MONOCYTES ABSOLUTE COUNT (BEAKER) (test 0.87 K/ L 0.24-0.36 dsmz=618) EOSINOPHILS ABSOLUTE COUNT (BEAKER) (test 0.53 K/ L 0.04-0.36 vonz=621) BASOPHILS ABSOLUTE COUNT (BEAKER) (test 0.06 K/ L 0.01-0.08 gnap=901) IMMATURE GRANULOCYTES-RELATIVE PERCENT (BEAKER) 1 % 0-1 (test usds=2282) HEMOGLOBIN AND [id number] 05:56:00 Test Item Value Reference Range Comments HEMOGLOBIN (BEAKER) (test kucn=753) 8.5 GM/DL 11.2-15.7 HEMATOCRIT (BEAKER) (test meht=298) 25.4 % 34.1-44.9 Post transfusionPOCT-GLUCOSE [id number] 21:25:00 Test Item Value Reference Range Comments POC-GLUCOSE METER (BEAKER) 185 mg/dL 70-110 TESTED AT [address] (test wkgk=2417) [facility] [address] POCT-GLUCOSE [id number] 17:17:00 Test Item Value Reference Range Comments POC-GLUCOSE METER (BEAKER) 155 mg/dL 70-110 TESTED AT [address] (test bsjc=1667) [facility] [address] POCT-GLUCOSE [id number] 12:07:00 Test Item Value Reference Range Comments POC-GLUCOSE METER (BEAKER) 123 mg/dL 70-110 TESTED AT [address] (test wyhg=8856) [facility] [address] POCT-GLUCOSE [id number] 08:04:00 Test Item Value Reference Range Comments POC-GLUCOSE METER (BEAKER) 108 mg/dL 70-110 TESTED AT [address] (test rphq=1889) [facility] [address] RAD, CHEST, 1 VIEW, NON [id number] 07:45:00Reason for exam:->post extubationShould this be performed [...] Dory Pride Verified Date/Time:02/04/2019 07:45:17 Reading Location: [address] Neuro Reading Room CBC W/PLT COUNT & AUTO [id number] 07:01 :00 Test Item Value Reference Range Comments WHITE BLOOD CELL COUNT (BEAKER) (test gixn=137) 13.6 K/ L 3.5-10.5 RED BLOOD CELL COUNT (BEAKER) (test meeq=632) 2.17 M/ L 3.93-5.22 HEMOGLOBIN (BEAKER) (test qbls=271) 6.4 GM/DL 11.2-15.7 HEMATOCRIT (BEAKER) (test ptpx=565) 20.0 % 34.1-44.9 MEAN CORPUSCULAR VOLUME (BEAKER) (test biug=986) 92.2 fL 79.4-94.8 MEAN CORPUSCULAR HEMOGLOBIN (BEAKER) (test 29.5 pg 25.6-32.2 wcis=628) MEAN CORPUSCULAR HEMOGLOBIN CONC (BEAKER) (test 32.0 GM/DL 32.2-35.5 dmtb=173) RED CELL DISTRIBUTION WIDTH (BEAKER) (test 15.0 % 11.7-14.4 moet=816) PLATELET COUNT (BEAKER) (test qfko=896) 145 K/CU MM 150-450 MEAN PLATELET VOLUME (BEAKER) (test obol=623) 10.1 fL 9.4-12.3 NUCLEATED RED BLOOD CELLS (BEAKER) (test 0 /100 WBC 0-0 izwa=249) NEUTROPHILS RELATIVE PERCENT (BEAKER) (test 81 % dleq=132) LYMPHOCYTES RELATIVE PERCENT (BEAKER) (test 8 % igcq=184) MONOCYTES RELATIVE PERCENT (BEAKER) (test 7 % kfoe=614) EOSINOPHILS RELATIVE PERCENT (BEAKER) (test 3 % leyw=469) BASOPHILS RELATIVE PERCENT (BEAKER) (test 0 % ubml=232) NEUTROPHILS ABSOLUTE COUNT (BEAKER) (test 10.93 K/ L 1.56-6.13 aths=097) LYMPHOCYTES ABSOLUTE COUNT (BEAKER) (test 1.11 K/ L 1.18-3.74 kgvk=980) MONOCYTES ABSOLUTE COUNT (BEAKER) (test 0.97 K/ L 0.24-0.36 scpl=383) EOSINOPHILS ABSOLUTE COUNT (BEAKER) (test 0.44 K/ L 0.04-0.36 boff=995) BASOPHILS ABSOLUTE COUNT (BEAKER) (test 0.04 K/ L 0.01-0.08 xlzt=880) IMMATURE GRANULOCYTES-RELATIVE PERCENT (BEAKER) 1 % 0-1 (test uqtl=1886) CBC W/PLT COUNT & AUTO [id number] 05:24:00 Test Item Value Reference Range Comments WHITE BLOOD CELL COUNT (BEAKER) (test ulrl=840) 13.7 K/ L 3.5-10.5 RED BLOOD CELL COUNT (BEAKER) (test ummc=724) 2.22 M/ L 3.93-5.22 HEMOGLOBIN (BEAKER) (test smzd=355) 6.5 GM/DL 11.2-15.7 HEMATOCRIT (BEAKER) (test mjsc=425) 20.2 % 34.1-44.9 MEAN CORPUSCULAR VOLUME (BEAKER) (test mysc=861) 91.0 fL 79.4-94.8 MEAN CORPUSCULAR HEMOGLOBIN (BEAKER) (test 29.3 pg 25.6-32.2 bzrm=446) MEAN CORPUSCULAR HEMOGLOBIN CONC (BEAKER) (test 32.2 GM/DL 32.2-35.5 xygx=114) RED CELL DISTRIBUTION WIDTH (BEAKER) (test 15.1 % 11.7-14.4 zqxb=228) PLATELET COUNT (BEAKER) (test aahh=128) 151 K/CU MM 150-450 MEAN PLATELET VOLUME (BEAKER) (test ldsu=215) 10.5 fL 9.4-12.3 NUCLEATED RED BLOOD CELLS (BEAKER) (test 0 /100 WBC 0-0 jcbp=573) NEUTROPHILS RELATIVE PERCENT (BEAKER) (test 80 % wkdm=905) LYMPHOCYTES RELATIVE PERCENT (BEAKER) (test 8 % htwl=353) MONOCYTES RELATIVE PERCENT (BEAKER) (test 7 % eorg=896) EOSINOPHILS RELATIVE PERCENT (BEAKER) (test 3 % cghx=830) BASOPHILS RELATIVE PERCENT (BEAKER) (test 0 % ycak=548) NEUTROPHILS ABSOLUTE COUNT (BEAKER) (test 10.99 K/ L 1.56-6.13 zcuy=819) LYMPHOCYTES ABSOLUTE COUNT (BEAKER) (test 1.11 K/ L 1.18-3.74 gzqz=887) MONOCYTES ABSOLUTE COUNT (BEAKER) (test 0.98 K/ L 0.24-0.36 crpd=163) EOSINOPHILS ABSOLUTE COUNT (BEAKER) (test 0.45 K/ L 0.04-0.36 wrcm=318) BASOPHILS ABSOLUTE COUNT (BEAKER) (test 0.04 K/ L 0.01-0.08 yvzm=335) IMMATURE GRANULOCYTES-RELATIVE PERCENT (BEAKER) 1 % 0-1 (test tyna=3570) COMPREHENSIVE METABOLIC [id number] 05:11:00 Test Item Value Reference Range Comments TOTAL PROTEIN (BEAKER) 5.5 gm/dL 6.0-8.3 (test ionp=243) ALBUMIN (BEAKER) (test 2.3 g/dL 3.5-5.0 cgbi=6980) ALKALINE PHOSPHATASE 84 U/L 40-150 (BEAKER) (test zyxb=760) BILIRUBIN TOTAL (BEAKER) 0.5 mg/dL 0.2-1.2 (test jard=866) SODIUM (BEAKER) (test 141 meq/L 136-145 cidl=404) POTASSIUM (BEAKER) (test 4.3 meq/L 3.5-5.1 qraf=640) CHLORIDE (BEAKER) (test 106 meq/L 98-107 oolf=951) CO2 (BEAKER) (test 29 meq/L 22-29 iviw=631) BLOOD UREA NITROGEN 20 mg/dL 7-21 (BEAKER) (test ompd=844) CREATININE (BEAKER) (test 2.39 mg/dL 0.57-1.25 hphv=116) GLUCOSE RANDOM (BEAKER) 89 mg/dL 70-105 (test ekkm=024) CALCIUM (BEAKER) (test 8.4 mg/dL 8.4-10.2 vmzv=884) AST (SGOT) (BEAKER) (test 16 U/L 5-34 mrxk=088) ALT (SGPT) (BEAKER) (test 7 U/L 6-55 mwkd=214) EGFR (BEAKER) (test 24 mL/min/1.73 sq m ESTIMATED GFR IS NOT xmro=6466) ACCURATE CREATININE CLEARANCE IN PREDICTING GLOMERULAR FILTRATION RATE. ESTIMATED GFR IS NOT APPLICABLE FOR DIALYSIS PATIENTS. [id number] 05:08:00 Test Item Value Reference Range Comments PHOSPHORUS (BEAKER) (test qwjt=643) 2.4 mg/dL 2.3-4.7 [id number] 05:08:00 Test Item Value Reference Range Comments MAGNESIUM (BEAKER) (test qcav=223) 1.7 mg/dL 1.6-2.6 POCT-GLUCOSE [id number] 21:25:00 Test Item Value Reference Range Comments POC-GLUCOSE METER (BEAKER) 248 mg/dL 70-110 TESTED AT [address] (test uuow=9116) [facility] [address] POCT-GLUCOSE [id number] 11:33:00 Test Item Value Reference Range Comments POC-GLUCOSE METER (BEAKER) 168 mg/dL 70-110 TESTED AT [address] (test mivj=5754) [facility] [address] CBC W/PLT COUNT & AUTO [id number] 09:20:00 Test Item Value Reference Range Comments WHITE BLOOD CELL COUNT (BEAKER) (test nzfw=405) 19.4 K/ L 3.5-10.5 RED BLOOD CELL COUNT (BEAKER) (test rgzc=172) 2.74 M/ L 3.93-5.22 HEMOGLOBIN (BEAKER) (test llmx=119) 8.3 GM/DL 11.2-15.7 HEMATOCRIT (BEAKER) (test xudn=605) 24.5 % 34.1-44.9 MEAN CORPUSCULAR VOLUME (BEAKER) (test pzzq=628) 89.4 fL 79.4-94.8 MEAN CORPUSCULAR HEMOGLOBIN (BEAKER) (test 30.3 pg 25.6-32.2 yfix=992) MEAN CORPUSCULAR HEMOGLOBIN CONC (BEAKER) (test 33.9 GM/DL 32.2-35.5 vllt=159) RED CELL DISTRIBUTION WIDTH (BEAKER) (test 15.2 % 11.7-14.4 cbji=581) PLATELET COUNT (BEAKER) (test vuki=943) 194 K/CU MM 150-450 MEAN PLATELET VOLUME (BEAKER) (test inzb=037) 9.2 fL 9.4-12.3 NUCLEATED RED BLOOD CELLS (BEAKER) (test 0 /100 WBC 0-0 tulx=177) NEUTROPHILS RELATIVE PERCENT (BEAKER) (test 87 % tnlw=467) LYMPHOCYTES RELATIVE PERCENT (BEAKER) (test 4 % khkg=411) MONOCYTES RELATIVE PERCENT (BEAKER) (test 6 % yxad=198) EOSINOPHILS RELATIVE PERCENT (BEAKER) (test 2 % yrkz=750) BASOPHILS RELATIVE PERCENT (BEAKER) (test 0 % ucme=210) NEUTROPHILS ABSOLUTE COUNT (BEAKER) (test 16.93 K/ L 1.56-6.13 czip=166) LYMPHOCYTES ABSOLUTE COUNT (BEAKER) (test 0.80 K/ L 1.18-3.74 cuan=087) MONOCYTES ABSOLUTE COUNT (BEAKER) (test 1.07 K/ L 0.24-0.36 dlgi=327) EOSINOPHILS ABSOLUTE COUNT (BEAKER) (test 0.31 K/ L 0.04-0.36 nhcz=479) BASOPHILS ABSOLUTE COUNT (BEAKER) (test 0.07 K/ L 0.01-0.08 pvaj=836) IMMATURE GRANULOCYTES-RELATIVE PERCENT (BEAKER) 1 % 0-1 (test wgnp=1387) B-TYPE NATRIURETIC FACTOR (BNP)2019-02-03 07:54:00 Test Item Value Reference Range Comments B-TYPE NATRIURETIC PEPTIDE (BEAKER) (test 3301 pg/mL 0-100 ypqi=849) COMPREHENSIVE METABOLIC [id number] 07:31:00 Test Item Value Reference Range Comments TOTAL PROTEIN (BEAKER) 7.1 gm/dL 6.0-8.3 (test opnd=216) ALBUMIN (BEAKER) (test 2.9 g/dL 3.5-5.0 bgfe=3799) ALKALINE PHOSPHATASE 102 U/L 40-150 (BEAKER) (test vxvy=459) BILIRUBIN TOTAL (BEAKER) 0.9 mg/dL 0.2-1.2 (test earn=889) SODIUM (BEAKER) (test 139 meq/L 136-145 wjmu=528) POTASSIUM (BEAKER) (test 4.5 meq/L 3.5-5.1 etoe=040) CHLORIDE (BEAKER) (test 104 meq/L 98-107 bkya=625) CO2 (BEAKER) (test 28 meq/L 22-29 vwqh=897) BLOOD UREA NITROGEN 31 mg/dL 7-21 (BEAKER) (test pznp=706) CREATININE (BEAKER) (test 3.72 mg/dL 0.57-1.25 odiw=098) GLUCOSE RANDOM (BEAKER) 150 mg/dL 70-105 (test vrsk=067) CALCIUM (BEAKER) (test 9.4 mg/dL 8.4-10.2 tjtg=179) AST (SGOT) (BEAKER) (test 19 U/L 5-34 cpuh=044) ALT (SGPT) (BEAKER) (test < U/L 6-55 xpgh=446) EGFR (BEAKER) (test 15 mL/min/1.73 sq m ESTIMATED GFR IS NOT adzw=6586) ACCURATE CREATININE CLEARANCE IN PREDICTING GLOMERULAR FILTRATION RATE. ESTIMATED GFR IS NOT APPLICABLE FOR DIALYSIS PATIENTS. RAD, CHEST, 1 VIEW, NON [id number] 07:31:00Reason for exam:->post extubationShould this be performed [...] Verified Date/Time: 02/03/2019 07:31: 20 Reading Location: [facility] B1 [id number] Body Reading Room [id number] 07:29: 00 Test Item Value Reference Range Comments PHOSPHORUS (BEAKER) (test tutj=392) 3.5 mg/dL 2.3-4.7 [id number] 07:29:00 Test Item Value Reference Range Comments MAGNESIUM (BEAKER) (test cbua=056) 2.1 mg/dL 1.6-2.6 CBC W/PLT COUNT & AUTO [id number] 06:50:00 Test Item Value Reference Range Comments WHITE BLOOD CELL COUNT (BEAKER) (test fzfd=924) 21.1 K/ L 3.5-10.5 RED BLOOD CELL COUNT (BEAKER) (test sxzx=763) 3.06 M/ L 3.93-5.22 HEMOGLOBIN (BEAKER) (test fvbj=909) 9.0 GM/DL 11.2-15.7 HEMATOCRIT (BEAKER) (test vtae=865) 27.7 % 34.1-44.9 MEAN CORPUSCULAR VOLUME (BEAKER) (test nywe=443) 90.5 fL 79.4-94.8 MEAN CORPUSCULAR HEMOGLOBIN (BEAKER) (test 29.4 pg 25.6-32.2 yqub=597) MEAN CORPUSCULAR HEMOGLOBIN CONC (BEAKER) (test 32.5 GM/DL 32.2-35.5 bpea=705) RED CELL DISTRIBUTION WIDTH (BEAKER) (test 15.5 % 11.7-14.4 ausk=433) PLATELET COUNT (BEAKER) (test mfnn=467) 214 K/CU MM 150-450 MEAN PLATELET VOLUME (BEAKER) (test upha=073) 10.2 fL 9.4-12.3 NUCLEATED RED BLOOD CELLS (BEAKER) (test 0 /100 WBC 0-0 hcql=978) NEUTROPHILS RELATIVE PERCENT (BEAKER) (test 88 % aljg=937) LYMPHOCYTES RELATIVE PERCENT (BEAKER) (test 3 % xxez=738) MONOCYTES RELATIVE PERCENT (BEAKER) (test 5 % ugre=948) EOSINOPHILS RELATIVE PERCENT (BEAKER) (test 2 % epdi=654) BASOPHILS RELATIVE PERCENT (BEAKER) (test 0 % ioaz=057) NEUTROPHILS ABSOLUTE COUNT (BEAKER) (test 18.67 K/ L 1.56-6.13 lntn=031) LYMPHOCYTES ABSOLUTE COUNT (BEAKER) (test 0.72 K/ L 1.18-3.74 dsza=298) MONOCYTES ABSOLUTE COUNT (BEAKER) (test 1.09 K/ L 0.24-0.36 nzrx=621) EOSINOPHILS ABSOLUTE COUNT (BEAKER) (test 0.33 K/ L 0.04-0.36 mfzu=281) BASOPHILS ABSOLUTE COUNT (BEAKER) (test 0.09 K/ L 0.01-0.08 hemh=169) IMMATURE GRANULOCYTES-RELATIVE PERCENT (BEAKER) 1 % 0-1 (test jjee=4674) CALCIUM, [id number] 06:30:00 Test Item Value Reference Range Comments CALCIUM IONIZED (BEAKER) (test hyzz=564) 1.19 mmol/L 1.12-1.27 PH, BLOOD (BEAKER) (test uyta=7249) 7.36 POCT-GLUCOSE [id number] 21:28:00 Test Item Value Reference Range Comments POC-GLUCOSE METER (BEAKER) 149 mg/dL 70-110 TESTED AT [address] (test nzii=6710) [facility] [address] POCT-GLUCOSE [id number] 12:40:00 Test Item Value Reference Range Comments POC-GLUCOSE METER (BEAKER) 171 mg/dL 70-110 TESTED AT [address] (test tnhu=6626) [facility] [address] POCT-GLUCOSE [id number] 09:54:00 Test Item Value Reference Range Comments POC-GLUCOSE METER (BEAKER) 148 mg/dL 70-110 TESTED AT [address] (test bxxz=3127) [facility] [address] RAD, CHEST, 1 VIEW, NON [id number] 08:14:00Reason for exam:->post extubationShould this be performed [...] contrast at the splenic flexure. Signed: JR Mrecado Robert MDReport Verified Date/Time: 02/02/2019 08:14:25 Reading Location: [facility] Radiology Reading Room Electronically signed by: JULIO Davidson 08:14 AMCOMPREHENSIVE METABOLIC [id number] 06:59:00 Test Item Value Reference Range Comments TOTAL PROTEIN (BEAKER) 5.6 gm/dL 6.0-8.3 (test slyh=889) ALBUMIN (BEAKER) (test 2.3 g/dL 3.5-5.0 ztkk=8931) ALKALINE PHOSPHATASE 78 U/L 40-150 (BEAKER) (test juvk=136) BILIRUBIN TOTAL (BEAKER) 0.4 mg/dL 0.2-1.2 (test fnao=034) SODIUM (BEAKER) (test 142 meq/L 136-145 xequ=178) POTASSIUM (BEAKER) (test 4.3 meq/L 3.5-5.1 zqub=916) CHLORIDE (BEAKER) (test 107 meq/L 98-107 qvxp=565) CO2 (BEAKER) (test 30 meq/L 22-29 xlhb=524) BLOOD UREA NITROGEN 24 mg/dL 7-21 (BEAKER) (test oxdk=367) CREATININE (BEAKER) (test 2.88 mg/dL 0.57-1.25 czrt=301) GLUCOSE RANDOM (BEAKER) 98 mg/dL 70-105 (test mtvp=791) CALCIUM (BEAKER) (test 8.7 mg/dL 8.4-10.2 tnfb=646) AST (SGOT) (BEAKER) (test 16 U/L 5-34 hhut=523) ALT (SGPT) (BEAKER) (test 7 U/L 6-55 czvp=790) EGFR (BEAKER) (test 20 mL/min/1.73 sq m ESTIMATED GFR IS NOT sdjr=7328) ACCURATE CREATININE CLEARANCE IN PREDICTING GLOMERULAR FILTRATION RATE. ESTIMATED GFR IS NOT APPLICABLE FOR DIALYSIS PATIENTS. CBC W/PLT COUNT & AUTO [id number] 06:50:00 Test Item Value Reference Range Comments WHITE BLOOD CELL COUNT (BEAKER) (test jhti=651) 12.6 K/ L 3.5-10.5 RED BLOOD CELL COUNT (BEAKER) (test xhef=737) 2.13 M/ L 3.93-5.22 HEMOGLOBIN (BEAKER) (test btlo=694) 6.2 GM/DL 11.2-15.7 HEMATOCRIT (BEAKER) (test aurv=296) 20.0 % 34.1-44.9 MEAN CORPUSCULAR VOLUME (BEAKER) (test bccy=246) 93.9 fL 79.4-94.8 MEAN CORPUSCULAR HEMOGLOBIN (BEAKER) (test 29.1 pg 25.6-32.2 kuov=904) MEAN CORPUSCULAR HEMOGLOBIN CONC (BEAKER) (test 31.0 GM/DL 32.2-35.5 abkt=814) RED CELL DISTRIBUTION WIDTH (BEAKER) (test 15.5 % 11.7-14.4 sqxr=054) PLATELET COUNT (BEAKER) (test zhse=476) 146 K/CU MM 150-450 MEAN PLATELET VOLUME (BEAKER) (test usjn=701) 10.4 fL 9.4-12.3 NUCLEATED RED BLOOD CELLS (BEAKER) (test 0 /100 WBC 0-0 ohxv=127) NEUTROPHILS RELATIVE PERCENT (BEAKER) (test 79 % adlt=847) LYMPHOCYTES RELATIVE PERCENT (BEAKER) (test 8 % nlri=399) MONOCYTES RELATIVE PERCENT (BEAKER) (test 9 % gjwx=294) EOSINOPHILS RELATIVE PERCENT (BEAKER) (test 2 % igcv=444) BASOPHILS RELATIVE PERCENT (BEAKER) (test 0 % uuwi=937) NEUTROPHILS ABSOLUTE COUNT (BEAKER) (test 10.03 K/ L 1.56-6.13 jryl=008) LYMPHOCYTES ABSOLUTE COUNT (BEAKER) (test 0.97 K/ L 1.18-3.74 odzk=012) MONOCYTES ABSOLUTE COUNT (BEAKER) (test 1.16 K/ L 0.24-0.36 zjxn=713) EOSINOPHILS ABSOLUTE COUNT (BEAKER) (test 0.29 K/ L 0.04-0.36 evmr=397) BASOPHILS ABSOLUTE COUNT (BEAKER) (test 0.04 K/ L 0.01-0.08 fgct=194) IMMATURE GRANULOCYTES-RELATIVE PERCENT (BEAKER) 1 % 0-1 (test ytjk=6368) [id number] 06:49:00 Test Item Value Reference Range Comments PHOSPHORUS (BEAKER) (test xply=958) 3.0 mg/dL 2.3-4.7 [id number] 06:49:00 Test Item Value Reference Range Comments MAGNESIUM (BEAKER) (test dxpe=706) 1.6 mg/dL 1.6-2.6 CALCIUM, [id number] 06:34:00 Test Item Value Reference Range Comments CALCIUM IONIZED (BEAKER) (test exgh=286) 1.11 mmol/L 1.12-1.27 PH, BLOOD (BEAKER) (test cdqa=8983) 7.43 CALCIUM, [id number] 06:33:00 Test Item Value Reference Range Comments CALCIUM IONIZED (BEAKER) (test gvmw=619) 1.10 mmol/L 1.12-1.27 PH, BLOOD (BEAKER) (test brex=5518) 7.42 POCT-GLUCOSE [id number] 21:12:00 Test Item Value Reference Range Comments POC-GLUCOSE METER (BEAKER) 190 mg/dL 70-110 TESTED AT [address] (test nipz=6828) [facility] [address] POCT-GLUCOSE [id number] 17:34:00 Test Item Value Reference Range Comments POC-GLUCOSE METER (BEAKER) 108 mg/dL 70-110 TESTED AT [address] (test zcau=4772) [facility] [address] POCT-GLUCOSE [id number] 12:20:00 Test Item Value Reference Range Comments POC-GLUCOSE METER (BEAKER) 113 mg/dL 70-110 TESTED AT [address] (test mhwc=2668) [facility] [address] POCT-GLUCOSE [id number] 10:24:00 Test Item Value Reference Range Comments POC-GLUCOSE METER (BEAKER) 139 mg/dL 70-110 TESTED AT [address] (test vhjt=2181) [facility] [address] CBC W/PLT COUNT & AUTO [id number] 10:11:00 Test Item Value Reference Range Comments WHITE BLOOD CELL COUNT (BEAKER) (test tfnu=997) 14.7 K/ L 3.5-10.5 RED BLOOD CELL COUNT (BEAKER) (test nrvc=427) 2.54 M/ L 3.93-5.22 HEMOGLOBIN (BEAKER) (test dzpl=606) 7.3 GM/DL 11.2-15.7 HEMATOCRIT (BEAKER) (test qdrc=850) 23.7 % 34.1-44.9 MEAN CORPUSCULAR VOLUME (BEAKER) (test gujn=859) 93.3 fL 79.4-94.8 MEAN CORPUSCULAR HEMOGLOBIN (BEAKER) (test 28.7 pg 25.6-32.2 grim=993) MEAN CORPUSCULAR HEMOGLOBIN CONC (BEAKER) (test 30.8 GM/DL 32.2-35.5 efct=928) RED CELL DISTRIBUTION WIDTH (BEAKER) (test 15.1 % 11.7-14.4 otnd=142) PLATELET COUNT (BEAKER) (test hqww=192) 108 K/CU MM 150-450 MEAN PLATELET VOLUME (BEAKER) (test suaa=118) 10.0 fL 9.4-12.3 NUCLEATED RED BLOOD CELLS (BEAKER) (test 0 /100 WBC 0-0 dyyl=155) NEUTROPHILS RELATIVE PERCENT (BEAKER) (test 87 % riln=345) LYMPHOCYTES RELATIVE PERCENT (BEAKER) (test 5 % lrle=182) MONOCYTES RELATIVE PERCENT (BEAKER) (test 5 % qsce=655) EOSINOPHILS RELATIVE PERCENT (BEAKER) (test 2 % lpzn=637) BASOPHILS RELATIVE PERCENT (BEAKER) (test 0 % xcfv=337) NEUTROPHILS ABSOLUTE COUNT (BEAKER) (test 12.69 K/ L 1.56-6.13 ttsc=490) LYMPHOCYTES ABSOLUTE COUNT (BEAKER) (test 0.73 K/ L 1.18-3.74 bxda=185) MONOCYTES ABSOLUTE COUNT (BEAKER) (test 0.66 K/ L 0.24-0.36 ehui=571) EOSINOPHILS ABSOLUTE COUNT (BEAKER) (test 0.32 K/ L 0.04-0.36 uakq=765) BASOPHILS ABSOLUTE COUNT (BEAKER) (test 0.03 K/ L 0.01-0.08 spjw=573) IMMATURE GRANULOCYTES-RELATIVE PERCENT (BEAKER) 2 % 0-1 (test pnjh=0055) RAD, CHEST, 1 VIEW, NON [id number] 08:14:00Reason for exam:->post extubationShould this be performed [...] Robert MDReportVerified Date/Time: 02/01/2019 08:14:17 Reading Location: [facility] Radiology Reading Room POCT-GLUCOSE [id number] 07:27:00 Test Item Value Reference Range Comments POC-GLUCOSE METER (BEAKER) 129 mg/dL 70-110 TESTED AT [facility] [address] [facility] (test pnmb=5897) [facility] [address] POCT-GLUCOSE [id number] 21:16:00 Test Item Value Reference Range Comments POC-GLUCOSE METER (BEAKER) 247 mg/dL 70-110 TESTED AT [facility] [address] (test qhrm=3456) [place] [address] RAD, CHEST, 1 VIEW, NON [id number] 07:38:00Reason for exam:->post extubationShould this be performed [...] Verified Date/Time: 01/31/2019 07:38: 40 Reading Location: [facility] Radiology Reading Room CALCIUM, [id number] 06:46:00 Test Item Value Reference Range Comments CALCIUM IONIZED (BEAKER) (test eyjj=132) 0.98 mmol/L 1.12-1.27 PH, BLOOD (BEAKER) (test ezcm=4321) 7.55 COMPREHENSIVE METABOLIC [id number] 05:31:00 Test Item Value Reference Range Comments TOTAL PROTEIN (BEAKER) 5.6 gm/dL 6.0-8.3 (test nplg=258) ALBUMIN (BEAKER) (test 2.4 g/dL 3.5-5.0 tqvs=3315) ALKALINE PHOSPHATASE 80 U/L 40-150 (BEAKER) (test fsef=522) BILIRUBIN TOTAL (BEAKER) 0.4 mg/dL 0.2-1.2 (test jbys=566) SODIUM (BEAKER) (test 142 meq/L 136-145 nbkj=556) POTASSIUM (BEAKER) (test 4.0 meq/L 3.5-5.1 jaei=421) CHLORIDE (BEAKER) (test 108 meq/L 98-107 frac=156) CO2 (BEAKER) (test 26 meq/L 22-29 fbnn=173) BLOOD UREA NITROGEN 25 mg/dL 7-21 (BEAKER) (test uqqr=249) CREATININE (BEAKER) (test 2.63 mg/dL 0.57-1.25 gqou=054) GLUCOSE RANDOM (BEAKER) 96 mg/dL 70-105 (test peug=174) CALCIUM (BEAKER) (test 8.4 mg/dL 8.4-10.2 umhe=290) AST (SGOT) (BEAKER) (test 22 U/L 5-34 tkuz=931) ALT (SGPT) (BEAKER) (test 7 U/L 6-55 aqxs=794) EGFR (BEAKER) (test 22 mL/min/1.73 sq m ESTIMATED GFR IS NOT cexl=5342) ACCURATE CREATININE CLEARANCE IN PREDICTING GLOMERULAR FILTRATION RATE. ESTIMATED GFR IS NOT APPLICABLE FOR DIALYSIS PATIENTS. [id number] 05:30:00 Test Item Value Reference Range Comments PHOSPHORUS (BEAKER) (test auhd=258) 2.9 mg/dL 2.3-4.7 [id number] 05:30:00 Test Item Value Reference Range Comments MAGNESIUM (BEAKER) (test mzkq=640) 1.6 mg/dL 1.6-2.6 CBC W/PLT COUNT & AUTO [id number] 05:23:00 Test Item Value Reference Range Comments WHITE BLOOD CELL COUNT (BEAKER) (test xakq=481) 12.2 K/ L 3.5-10.5 RED BLOOD CELL COUNT (BEAKER) (test prpp=985) 2.59 M/ L 3.93-5.22 HEMOGLOBIN (BEAKER) (test kcyn=851) 7.6 GM/DL 11.2-15.7 HEMATOCRIT (BEAKER) (test dhed=860) 23.7 % 34.1-44.9 MEAN CORPUSCULAR VOLUME (BEAKER) (test wdin=962) 91.5 fL 79.4-94.8 MEAN CORPUSCULAR HEMOGLOBIN (BEAKER) (test 29.3 pg 25.6-32.2 alhf=342) MEAN CORPUSCULAR HEMOGLOBIN CONC (BEAKER) (test 32.1 GM/DL 32.2-35.5 vmdh=620) RED CELL DISTRIBUTION WIDTH (BEAKER) (test 15.2 % 11.7-14.4 dyhk=933) PLATELET COUNT (BEAKER) (test ezls=338) 171 K/CU MM 150-450 MEAN PLATELET VOLUME (BEAKER) (test crlr=289) 10.7 fL 9.4-12.3 NUCLEATED RED BLOOD CELLS (BEAKER) (test 0 /100 WBC 0-0 xxic=563) NEUTROPHILS RELATIVE PERCENT (BEAKER) (test 78 % zsep=221) LYMPHOCYTES RELATIVE PERCENT (BEAKER) (test 7 % ybcs=258) MONOCYTES RELATIVE PERCENT (BEAKER) (test 9 % gyjc=702) EOSINOPHILS RELATIVE PERCENT (BEAKER) (test 3 % lngw=106) BASOPHILS RELATIVE PERCENT (BEAKER) (test 0 % fxfp=828) NEUTROPHILS ABSOLUTE COUNT (BEAKER) (test 9.59 K/ L 1.56-6.13 hyrw=185) LYMPHOCYTES ABSOLUTE COUNT (BEAKER) (test 0.90 K/ L 1.18-3.74 knhz=296) MONOCYTES ABSOLUTE COUNT (BEAKER) (test 1.07 K/ L 0.24-0.36 yniv=999) EOSINOPHILS ABSOLUTE COUNT (BEAKER) (test 0.40 K/ L 0.04-0.36 dvki=075) BASOPHILS ABSOLUTE COUNT (BEAKER) (test 0.04 K/ L 0.01-0.08 adbx=120) IMMATURE GRANULOCYTES-RELATIVE PERCENT (BEAKER) 2 % 0-1 (test wzno=5190) POCT-GLUCOSE [id number] 21:52:00 Test Item Value Reference Range Comments POC-GLUCOSE METER (BEAKER) 146 mg/dL 70-110 TESTED AT [facility] [address] [facility] (test kcdt=2662) [facility] [address] POCT-GLUCOSE [id number] 18:13:00 Test Item Value Reference Range Comments POC-GLUCOSE METER (BEAKER) 168 mg/dL 70-110 TESTED AT [place] [id number] [facility] (test qtjz=9342) [facility] [address] RAD, CHEST, 1 VIEW, NON [id number] 07:08:00Reason for exam:->post extubationShould this be performed at the bedside?->YesFINAL REPORT RAD, CHEST, 1 VIEW, NON DEPT INDICATION: post extubation COMPARISON: Prior day's exam FINDINGS: Portable frontal view of the chest. IMPRESSION: Support Lines: Stable right IJ dual-lumen central venous catheter. Lungs and pleura: No consolidation or effusion. No pneumothorax.Heart and mediastinum: Stable contours. Additional findings: None. Signed: JR Rogelio, Julio Cm Verified Date/Time: 01/30/2019 07:08:13 Reading Location: [facility] Radiology Reading Room [id number] 05:34:00 Test Item Value Reference Range Comments FERRITIN (BEAKER) (test auni=769) 606 ng/mL 5-275 CALCIUM, [id number] 05:26:00 Test Item Value Reference Range Comments CALCIUM IONIZED (BEAKER) (test czvn=772) 1.03 mmol/L 1.12-1.27 PH, BLOOD (BEAKER) (test yqht=5227) 7.47 IRON, TIBC, % SAT. (WITHOUT FERRITIN)2019-01-30 05:13:00 Test Item Value Reference Range Comments IRON (BEAKER) (test nupd=570) 44.0 ug/dL 40.0-160.0 TOTAL IRON BINDING CAPACITY (BEAKER) (test 138 ug/dL 250-450 eixa=226) IRON % SATURATION (2) (BEAKER) (test qhzq=8565) 32 % 20-55 COMPREHENSIVE METABOLIC [id number] 05:09:00 Test Item Value Reference Range Comments TOTAL PROTEIN (BEAKER) 5.8 gm/dL 6.0-8.3 (test tpon=800) ALBUMIN (BEAKER) (test 2.5 g/dL 3.5-5.0 trqb=2208) ALKALINE PHOSPHATASE 85 U/L 40-150 (BEAKER) (test ehcw=596) BILIRUBIN TOTAL (BEAKER) 0.6 mg/dL 0.2-1.2 (test zysc=799) SODIUM (BEAKER) (test 136 meq/L 136-145 llpq=530) POTASSIUM (BEAKER) (test 4.1 meq/L 3.5-5.1 yhvf=449) CHLORIDE (BEAKER) (test 103 meq/L 98-107 ujee=003) CO2 (BEAKER) (test 24 meq/L 22-29 vloz=533) BLOOD UREA NITROGEN 53 mg/dL 7-21 (BEAKER) (test sgig=312) CREATININE (BEAKER) (test 4.89 mg/dL 0.57-1.25 dpsy=869) GLUCOSE RANDOM (BEAKER) 98 mg/dL 70-105 (test oamf=027) CALCIUM (BEAKER) (test 8.4 mg/dL 8.4-10.2 yesh=130) AST (SGOT) (BEAKER) (test 29 U/L 5-34 nwuo=379) ALT (SGPT) (BEAKER) (test 6 U/L 6-55 yfkw=670) EGFR (BEAKER) (test 11 mL/min/1.73 sq m ESTIMATED GFR IS NOT uclm=9448) ACCURATE CREATININE CLEARANCE IN PREDICTING GLOMERULAR FILTRATION RATE. ESTIMATED GFR IS NOT APPLICABLE FOR DIALYSIS PATIENTS. [id number] 05:07:00 Test Item Value Reference Range Comments PHOSPHORUS (BEAKER) (test hijk=933) 4.6 mg/dL 2.3-4.7 [id number] 05:07:00 Test Item Value Reference Range Comments MAGNESIUM (BEAKER) (test uloo=876) 1.7 mg/dL 1.6-2.6 CBC W/PLT COUNT & AUTO [id number] 04:57:00 Test Item Value Reference Range Comments WHITE BLOOD CELL COUNT (BEAKER) (test szcf=270) 14.3 K/ L 3.5-10.5 RED BLOOD CELL COUNT (BEAKER) (test eakc=359) 2.70 M/ L 3.93-5.22 HEMOGLOBIN (BEAKER) (test iwal=638) 7.8 GM/DL 11.2-15.7 HEMATOCRIT (BEAKER) (test hzef=567) 24.9 % 34.1-44.9 MEAN CORPUSCULAR VOLUME (BEAKER) (test chos=161) 92.2 fL 79.4-94.8 MEAN CORPUSCULAR HEMOGLOBIN (BEAKER) (test 28.9 pg 25.6-32.2 uyiy=303) MEAN CORPUSCULAR HEMOGLOBIN CONC (BEAKER) (test 31.3 GM/DL 32.2-35.5 ezjp=148) RED CELL DISTRIBUTION WIDTH (BEAKER) (test 15.2 % 11.7-14.4 jtbd=126) PLATELET COUNT (BEAKER) (test wjiz=329) 236 K/CU MM 150-450 MEAN PLATELET VOLUME (BEAKER) (test wdwx=265) 9.9 fL 9.4-12.3 NUCLEATED RED BLOOD CELLS (BEAKER) (test 0 /100 WBC 0-0 xlqi=351) NEUTROPHILS RELATIVE PERCENT (BEAKER) (test 79 % ufcq=786) LYMPHOCYTES RELATIVE PERCENT (BEAKER) (test 7 % ywye=526) MONOCYTES RELATIVE PERCENT (BEAKER) (test 8 % zikd=841) EOSINOPHILS RELATIVE PERCENT (BEAKER) (test 4 % lzgq=662) BASOPHILS RELATIVE PERCENT (BEAKER) (test 0 % bupv=155) NEUTROPHILS ABSOLUTE COUNT (BEAKER) (test 11.29 K/ L 1.56-6.13 unhm=412) LYMPHOCYTES ABSOLUTE COUNT (BEAKER) (test 1.00 K/ L 1.18-3.74 xfle=157) MONOCYTES ABSOLUTE COUNT (BEAKER) (test 1.14 K/ L 0.24-0.36 njfy=031) EOSINOPHILS ABSOLUTE COUNT (BEAKER) (test 0.51 K/ L 0.04-0.36 dlvi=610) BASOPHILS ABSOLUTE COUNT (BEAKER) (test 0.05 K/ L 0.01-0.08 rcwv=424) IMMATURE GRANULOCYTES-RELATIVE PERCENT (BEAKER) 2 % 0-1 (test cdcz=9591) RETICULOCYTE [id number] 04:39:00 Test Item Value Reference Range Comments RETICULOCYTE COUNT PCT (BEAKER) (test rgyh=522) 1.2 % 0.5-1.7 POCT-GLUCOSE [id number] 21:32:00 Test Item Value Reference Range Comments POC-GLUCOSE METER (BEAKER) 164 mg/dL 70-110 TESTED AT [address] (test hube=9824) [place] [id number] POCT-GLUCOSE [id number] 17:52:00 Test Item Value Reference Range Comments POC-GLUCOSE METER (BEAKER) 130 mg/dL 70-110 TESTED AT [address] (test htxs=8747) [place] [id number] POCT-GLUCOSE [id number] 13:09:00 Test Item Value Reference Range Comments POC-GLUCOSE METER (BEAKER) 126 mg/dL 70-110 TESTED AT [address] (test jwad=2093) [place] [address] RAD, CHEST, 1 VIEW, NON [id number] 08:07:00Reason for exam:->post extubationShould this be performed at the bedside?->YesFINAL REPORT INDICATION: post extubation COMPARISON:January 28 TECHNIQUE: Chest radiograph, single view, portable technique. FINDINGS / IMPRESSION: Lungs are clear and heart shadow normal in size. No pneumothorax or pleural effusion demonstrated. Double lumen right internal jugular line terminates in the low SVC. Signed: Rj Rhoades MDReport Verified Date/Time: 01/29/2019 08:07:52 Reading Location: [facility] B1 C013Y CT Body Reading Room POCT-GLUCOSE [id number] 08:03:00 Test Item Value Reference Range Comments POC-GLUCOSE METER (BEAKER) 104 mg/dL 70-110 TESTED AT [facility] [address] (test urmd=6528) [facility] [address] BLOOD [id number] 08:01:00 Test Item Value Reference Range Comments CULTURE (BEAKER) (test wega=4412) No growth in 5 days BLOOD [id number] 08:01:00 Test Item Value Reference Range Comments CULTURE (BEAKER) (test hxon=0449) No growth in 5 days [id number] 06:15:00 Test Item Value Reference Range Comments PHOSPHORUS (BEAKER) (test zzyy=506) 4.2 mg/dL 2.3-4.7 [id number] 06:15:00 Test Item Value Reference Range Comments MAGNESIUM (BEAKER) (test lalt=520) 1.5 mg/dL 1.6-2.6 COMPREHENSIVE METABOLIC [id number] 06:15:00 Test Item Value Reference Range Comments TOTAL PROTEIN (BEAKER) 5.5 gm/dL 6.0-8.3 (test tzzx=349) ALBUMIN (BEAKER) (test 2.4 g/dL 3.5-5.0 aiim=8286) ALKALINE PHOSPHATASE 83 U/L 40-150 (BEAKER) (test jsbj=794) BILIRUBIN TOTAL (BEAKER) 0.5 mg/dL 0.2-1.2 (test qgcp=249) SODIUM (BEAKER) (test 137 meq/L 136-145 sxnz=559) POTASSIUM (BEAKER) (test 4.1 meq/L 3.5-5.1 qrpj=574) CHLORIDE (BEAKER) (test 102 meq/L 98-107 gxle=491) CO2 (BEAKER) (test 25 meq/L 22-29 jhie=333) BLOOD UREA NITROGEN 47 mg/dL 7-21 (BEAKER) (test wqxq=973) CREATININE (BEAKER) (test 4.38 mg/dL 0.57-1.25 mnwr=922) GLUCOSE RANDOM (BEAKER) 88 mg/dL 70-105 (test sgdn=190) CALCIUM (BEAKER) (test 8.2 mg/dL 8.4-10.2 ezxs=939) AST (SGOT) (BEAKER) (test 32 U/L 5-34 jydc=953) ALT (SGPT) (BEAKER) (test 7 U/L 6-55 mosf=694) EGFR (BEAKER) (test 12 mL/min/1.73 sq m ESTIMATED GFR IS NOT uvor=0724) ACCURATE CREATININE CLEARANCE IN PREDICTING GLOMERULAR FILTRATION RATE. ESTIMATED GFR IS NOT APPLICABLE FOR DIALYSIS PATIENTS. CBC W/PLT COUNT & AUTO [id number] 05:44:00 Test Item Value Reference Range Comments WHITE BLOOD CELL COUNT (BEAKER) (test sfgm=126) 13.8 K/ L 3.5-10.5 RED BLOOD CELL COUNT (BEAKER) (test rzog=147) 2.77 M/ L 3.93-5.22 HEMOGLOBIN (BEAKER) (test laez=445) 7.9 GM/DL 11.2-15.7 HEMATOCRIT (BEAKER) (test cwgl=963) 25.5 % 34.1-44.9 MEAN CORPUSCULAR VOLUME (BEAKER) (test ejeh=916) 92.1 fL 79.4-94.8 MEAN CORPUSCULAR HEMOGLOBIN (BEAKER) (test 28.5 pg 25.6-32.2 kqvm=019) MEAN CORPUSCULAR HEMOGLOBIN CONC (BEAKER) (test 31.0 GM/DL 32.2-35.5 fkfv=974) RED CELL DISTRIBUTION WIDTH (BEAKER) (test 15.5 % 11.7-14.4 imjg=146) PLATELET COUNT (BEAKER) (test easd=667) 185 K/CU MM 150-450 MEAN PLATELET VOLUME (BEAKER) (test drba=289) 10.5 fL 9.4-12.3 NUCLEATED RED BLOOD CELLS (BEAKER) (test 0 /100 WBC 0-0 loei=892) NEUTROPHILS RELATIVE PERCENT (BEAKER) (test 78 % ogqx=008) LYMPHOCYTES RELATIVE PERCENT (BEAKER) (test 8 % znuf=976) MONOCYTES RELATIVE PERCENT (BEAKER) (test 8 % lmco=424) EOSINOPHILS RELATIVE PERCENT (BEAKER) (test 5 % says=664) BASOPHILS RELATIVE PERCENT (BEAKER) (test 0 % mmim=700) NEUTROPHILS ABSOLUTE COUNT (BEAKER) (test 10.77 K/ L 1.56-6.13 ydhl=554) LYMPHOCYTES ABSOLUTE COUNT (BEAKER) (test 1.12 K/ L 1.18-3.74 wrio=391) MONOCYTES ABSOLUTE COUNT (BEAKER) (test 1.04 K/ L 0.24-0.36 jplx=201) EOSINOPHILS ABSOLUTE COUNT (BEAKER) (test 0.62 K/ L 0.04-0.36 uvcn=209) BASOPHILS ABSOLUTE COUNT (BEAKER) (test 0.05 K/ L 0.01-0.08 nuxc=114) IMMATURE GRANULOCYTES-RELATIVE PERCENT (BEAKER) 2 % 0-1 (test zxya=3293) POCT-GLUCOSE [id number] 21:16:00 Test Item Value Reference Range Comments POC-GLUCOSE METER (BEAKER) 160 mg/dL 70-110 TESTED AT [address] (test rfxc=3461) [place] [address] POCT-GLUCOSE [id number] 18:18:00 Test Item Value Reference Range Comments POC-GLUCOSE METER (BEAKER) 195 mg/dL 70-110 TESTED AT [address] (test vqjs=2709) [facility] [address] POCT-GLUCOSE [id number] 16:47:00 Test Item Value Reference Range Comments POC-GLUCOSE METER (BEAKER) 131 mg/dL 70-110 TESTED AT [address] (test hvyu=2840) [place] [id number] POCT-GLUCOSE [id number] 12:49:00 Test Item Value Reference Range Comments POC-GLUCOSE METER (BEAKER) 114 mg/dL 70-110 TESTED AT [address] (test vimh=5609) [facility] [address] POCT-GLUCOSE [id number] 07:56:00 Test Item Value Reference Range Comments POC-GLUCOSE METER (BEAKER) 113 mg/dL 70-110 TESTED AT [facility] [address] (test pzoi=3547) [facility] [address] RAD, CHEST, 1 VIEW, NON [id number] 07:24:00Reason for exam:->post extubationShould this be performed [...] Verified Date/Time: 01/28/2019 07:24: 41 Reading Location: [address] Neuro Reading Room COMPREHENSIVE METABOLIC [id number] 05:44:00 Test Item Value Reference Range Comments TOTAL PROTEIN (BEAKER) 5.5 gm/dL 6.0-8.3 (test kmip=014) ALBUMIN (BEAKER) (test 2.4 g/dL 3.5-5.0 qsmh=7812) ALKALINE PHOSPHATASE 81 U/L 40-150 (BEAKER) (test dtjw=513) BILIRUBIN TOTAL (BEAKER) 0.5 mg/dL 0.2-1.2 (test thvo=443) SODIUM (BEAKER) (test 140 meq/L 136-145 ldli=396) POTASSIUM (BEAKER) (test 4.1 meq/L 3.5-5.1 pfdq=185) CHLORIDE (BEAKER) (test 103 meq/L 98-107 ukpe=499) CO2 (BEAKER) (test 28 meq/L 22-29 ades=495) BLOOD UREA NITROGEN 39 mg/dL 7-21 (BEAKER) (test mzea=764) CREATININE (BEAKER) (test 3.86 mg/dL 0.57-1.25 xcto=274) GLUCOSE RANDOM (BEAKER) 99 mg/dL 70-105 (test lulv=419) CALCIUM (BEAKER) (test 8.2 mg/dL 8.4-10.2 ntrj=329) AST (SGOT) (BEAKER) (test 18 U/L 5-34 felo=364) ALT (SGPT) (BEAKER) (test < U/L 6-55 auxx=915) EGFR (BEAKER) (test 14 mL/min/1.73 sq m ESTIMATED GFR IS NOT ukug=4484) ACCURATE CREATININE CLEARANCE IN PREDICTING GLOMERULAR FILTRATION RATE. ESTIMATED GFR IS NOT APPLICABLE FOR DIALYSIS PATIENTS. [id number] 05:42:00 Test Item Value Reference Range Comments PHOSPHORUS (BEAKER) (test motp=975) 4.2 mg/dL 2.3-4.7 [id number] 05:42:00 Test Item Value Reference Range Comments MAGNESIUM (BEAKER) (test yzev=840) 1.6 mg/dL 1.6-2.6 CBC W/PLT COUNT & AUTO [id number] 05:12:00 Test Item Value Reference Range Comments WHITE BLOOD CELL COUNT (BEAKER) (test zysx=481) 14.7 K/ L 3.5-10.5 RED BLOOD CELL COUNT (BEAKER) (test hupe=750) 2.81 M/ L 3.93-5.22 HEMOGLOBIN (BEAKER) (test vojr=410) 8.1 GM/DL 11.2-15.7 HEMATOCRIT (BEAKER) (test lnqk=641) 25.6 % 34.1-44.9 MEAN CORPUSCULAR VOLUME (BEAKER) (test xrna=331) 91.1 fL 79.4-94.8 MEAN CORPUSCULAR HEMOGLOBIN (BEAKER) (test 28.8 pg 25.6-32.2 pehy=260) MEAN CORPUSCULAR HEMOGLOBIN CONC (BEAKER) (test 31.6 GM/DL 32.2-35.5 nnxn=688) RED CELL DISTRIBUTION WIDTH (BEAKER) (test 15.9 % 11.7-14.4 vyob=549) PLATELET COUNT (BEAKER) (test bxxw=334) 138 K/CU MM 150-450 MEAN PLATELET VOLUME (BEAKER) (test ixvr=462) 10.5 fL 9.4-12.3 NUCLEATED RED BLOOD CELLS (BEAKER) (test 0 /100 WBC 0-0 vyov=631) NEUTROPHILS RELATIVE PERCENT (BEAKER) (test 79 % zhke=881) LYMPHOCYTES RELATIVE PERCENT (BEAKER) (test 8 % aibs=047) MONOCYTES RELATIVE PERCENT (BEAKER) (test 8 % kplt=550) EOSINOPHILS RELATIVE PERCENT (BEAKER) (test 4 % vdap=290) BASOPHILS RELATIVE PERCENT (BEAKER) (test 0 % shgq=019) NEUTROPHILS ABSOLUTE COUNT (BEAKER) (test 11.53 K/ L 1.56-6.13 tqqh=158) LYMPHOCYTES ABSOLUTE COUNT (BEAKER) (test 1.10 K/ L 1.18-3.74 zjsk=268) MONOCYTES ABSOLUTE COUNT (BEAKER) (test 1.19 K/ L 0.24-0.36 qorm=885) EOSINOPHILS ABSOLUTE COUNT (BEAKER) (test 0.61 K/ L 0.04-0.36 blwv=501) BASOPHILS ABSOLUTE COUNT (BEAKER) (test 0.05 K/ L 0.01-0.08 skle=861) IMMATURE GRANULOCYTES-RELATIVE PERCENT (BEAKER) 1 % 0-1 (test togl=4119) POCT-GLUCOSE [id number] 21:58:00 Test Item Value Reference Range Comments POC-GLUCOSE METER (BEAKER) 200 mg/dL 70-110 TESTED AT [address] (test nebi=1932) [place] [address] POCT-GLUCOSE [id number] 19:08:00 Test Item Value Reference Range Comments POC-GLUCOSE METER (BEAKER) 155 mg/dL 70-110 TESTED AT [address] (test brxp=0524) [place] [address] POCT-GLUCOSE [id number] 08:16:00 Test Item Value Reference Range Comments POC-GLUCOSE METER (BEAKER) 85 mg/dL 70-110 TESTED AT [address] (test hidd=9617) [place] [address] RAD, CHEST, 1 VIEW, NON [id number] 07:11:00Reason for exam:->post extubationShould this be performed at the bedside?->YesFINAL REPORT Chest, one view HISTORY: Status post extubation Comparison: 2018 Findings: Lungs: Stable bilateral airspace disease. Heart: Normal in size. Pleura: No pleural effusion or pneumothorax. Bones: Unremarkable. Lines/tubes: Unchanged position of right-sided hemodialysis catheter. IMPRESSION: No significant interval change. Signed: Gary Tucker MDReport Verified Date/Time : 01/27/2019 07:11:40 Reading Location: [address] Ortho Consult Reading Room COMPREHENSIVE METABOLIC [id number] 05:10:00 Test Item Value Reference Range Comments TOTAL PROTEIN (BEAKER) 5.4 gm/dL 6.0-8.3 (test aesk=713) ALBUMIN (BEAKER) (test 2.4 g/dL 3.5-5.0 gyem=3436) ALKALINE PHOSPHATASE 75 U/L 40-150 (BEAKER) (test mwyl=238) BILIRUBIN TOTAL (BEAKER) 0.5 mg/dL 0.2-1.2 (test lhrw=259) SODIUM (BEAKER) (test 138 meq/L 136-145 vsch=346) POTASSIUM (BEAKER) (test 4.3 meq/L 3.5-5.1 wqhd=623) CHLORIDE (BEAKER) (test 103 meq/L 98-107 lydl=764) CO2 (BEAKER) (test 26 meq/L 22-29 crzy=009) BLOOD UREA NITROGEN 38 mg/dL 7-21 (BEAKER) (test dqku=907) CREATININE (BEAKER) (test 4.03 mg/dL 0.57-1.25 bhfu=388) GLUCOSE RANDOM (BEAKER) 88 mg/dL 70-105 (test ackt=067) CALCIUM (BEAKER) (test 8.2 mg/dL 8.4-10.2 mhck=366) AST (SGOT) (BEAKER) (test 18 U/L 5-34 vuch=284) ALT (SGPT) (BEAKER) (test < U/L 6-55 wxau=830) EGFR (BEAKER) (test 13 mL/min/1.73 sq m ESTIMATED GFR IS NOT znsc=6708) ACCURATE CREATININE CLEARANCE IN PREDICTING GLOMERULAR FILTRATION RATE. ESTIMATED GFR IS NOT APPLICABLE FOR DIALYSIS PATIENTS. [id number] 05:04:00 Test Item Value Reference Range Comments PHOSPHORUS (BEAKER) (test ccxi=866) 4.3 mg/dL 2.3-4.7 [id number] 05:04:00 Test Item Value Reference Range Comments MAGNESIUM (BEAKER) (test rjpe=048) 1.7 mg/dL 1.6-2.6 CBC W/PLT COUNT & AUTO [id number] 04:51:00 Test Item Value Reference Range Comments WHITE BLOOD CELL COUNT (BEAKER) (test fmme=981) 12.7 K/ L 3.5-10.5 RED BLOOD CELL COUNT (BEAKER) (test cmrv=686) 2.97 M/ L 3.93-5.22 HEMOGLOBIN (BEAKER) (test dwno=696) 8.4 GM/DL 11.2-15.7 HEMATOCRIT (BEAKER) (test vemk=448) 26.9 % 34.1-44.9 MEAN CORPUSCULAR VOLUME (BEAKER) (test yvmr=467) 90.6 fL 79.4-94.8 MEAN CORPUSCULAR HEMOGLOBIN (BEAKER) (test 28.3 pg 25.6-32.2 ephk=708) MEAN CORPUSCULAR HEMOGLOBIN CONC (BEAKER) (test 31.2 GM/DL 32.2-35.5 cejy=944) RED CELL DISTRIBUTION WIDTH (BEAKER) (test 16.2 % 11.7-14.4 oyno=283) PLATELET COUNT (BEAKER) (test ergu=488) 122 K/CU MM 150-450 MEAN PLATELET VOLUME (BEAKER) (test ctyj=623) 11.0 fL 9.4-12.3 NUCLEATED RED BLOOD CELLS (BEAKER) (test 0 /100 WBC 0-0 mdry=311) NEUTROPHILS RELATIVE PERCENT (BEAKER) (test 81 % oace=818) LYMPHOCYTES RELATIVE PERCENT (BEAKER) (test 6 % umzv=945) MONOCYTES RELATIVE PERCENT (BEAKER) (test 8 % ikyu=376) EOSINOPHILS RELATIVE PERCENT (BEAKER) (test 4 % vgft=701) BASOPHILS RELATIVE PERCENT (BEAKER) (test 0 % oxcb=466) NEUTROPHILS ABSOLUTE COUNT (BEAKER) (test 10.22 K/ L 1.56-6.13 zomf=462) LYMPHOCYTES ABSOLUTE COUNT (BEAKER) (test 0.73 K/ L 1.18-3.74 cwxb=655) MONOCYTES ABSOLUTE COUNT (BEAKER) (test 1.00 K/ L 0.24-0.36 iuue=536) EOSINOPHILS ABSOLUTE COUNT (BEAKER) (test 0.55 K/ L 0.04-0.36 gynt=049) BASOPHILS ABSOLUTE COUNT (BEAKER) (test 0.03 K/ L 0.01-0.08 rvvk=600) IMMATURE GRANULOCYTES-RELATIVE PERCENT (BEAKER) 1 % 0-1 (test bxmw=5781) [id number] 21:17:00 Test Item Value Reference Range Comments PROTIME (BEAKER) (test eute=003) 13.9 seconds 11.7-14.7 INR (BEAKER) (test ghzx=225) 1.1 <=5.9 PARTIAL THROMBOPLASTIN TIME (BEAKER) (test 45.8 seconds 22.5-36.0 speu=293) RECOMMENDED COUMADIN/WARFARIN INR THERAPY RANGESSTANDARD DOSE: 2.0 - 3.0 Includes: PROPHYLAXIS forvenous thrombosis, systemic embolization; TREATMENT for venous thrombosis and/or pulmonary embolus.HIGH RISK: Target INR is 2.5-3.5 for patients with mechanical heart valves.CBC W/PLT COUNT & AUTO [id number] 21:10:00 Test Item Value Reference Range Comments WHITE BLOOD CELL COUNT (BEAKER) (test lapa=834) 15.4 K/ L 3.5-10.5 RED BLOOD CELL COUNT (BEAKER) (test sbnc=538) 3.20 M/ L 3.93-5.22 HEMOGLOBIN (BEAKER) (test padi=953) 9.2 GM/DL 11.2-15.7 HEMATOCRIT (BEAKER) (test pnen=057) 28.4 % 34.1-44.9 MEAN CORPUSCULAR VOLUME (BEAKER) (test gtue=298) 88.8 fL 79.4-94.8 MEAN CORPUSCULAR HEMOGLOBIN (BEAKER) (test 28.8 pg 25.6-32.2 pdgf=239) MEAN CORPUSCULAR HEMOGLOBIN CONC (BEAKER) (test 32.4 GM/DL 32.2-35.5 obut=854) RED CELL DISTRIBUTION WIDTH (BEAKER) (test 16.4 % 11.7-14.4 qnaa=967) PLATELET COUNT (BEAKER) (test kwan=135) 131 K/CU MM 150-450 MEAN PLATELET VOLUME (BEAKER) (test akup=793) 11.5 fL 9.4-12.3 NUCLEATED RED BLOOD CELLS (BEAKER) (test 0 /100 WBC 0-0 dpca=701) NEUTROPHILS RELATIVE PERCENT (BEAKER) (test 82 % kawq=357) LYMPHOCYTES RELATIVE PERCENT (BEAKER) (test 6 % ajzz=276) MONOCYTES RELATIVE PERCENT (BEAKER) (test 7 % gxvc=028) EOSINOPHILS RELATIVE PERCENT (BEAKER) (test 4 % sxaf=220) BASOPHILS RELATIVE PERCENT (BEAKER) (test 0 % hmcv=113) NEUTROPHILS ABSOLUTE COUNT (BEAKER) (test 12.53 K/ L 1.56-6.13 blsu=244) LYMPHOCYTES ABSOLUTE COUNT (BEAKER) (test 0.88 K/ L 1.18-3.74 cmai=346) MONOCYTES ABSOLUTE COUNT (BEAKER) (test 1.05 K/ L 0.24-0.36 gfll=285) EOSINOPHILS ABSOLUTE COUNT (BEAKER) (test 0.67 K/ L 0.04-0.36 aunp=885) BASOPHILS ABSOLUTE COUNT (BEAKER) (test 0.03 K/ L 0.01-0.08 cfbb=455) IMMATURE GRANULOCYTES-RELATIVE PERCENT (BEAKER) 1 % 0-1 (test taxp=3949) POCT-LACTIC ACID, [id number] 20:44:00 Test Item Value Reference Range Comments POC-LACTIC ACID, VENOUS 0.8 mmol/L 0.9-1.7 TESTED AT [address] (BEAKER) (test rkgs=4725) [place] [address] [id number] 20:44:00 Test Item Value Reference Range Comments POC-HEMOGLOBIN (BEAKER) 9.2 g/dL 12.0-15.0 TESTED AT [address] (test tlcc=2465) [place] [id number] AT [place] [address] POCT-BLOOD GASES, [id number] 20:43:00 Test Item Value Reference Range Comments TEMP, CELSIUS-POC (BEAKER) 37.0 (test jjnt=8651) FIO2-POC (BEAKER) (test TESTED AT [address] csjx=3368) [place] [address] PH, VENOUS-POC (BEAKER) 7.475 7.320-7.420 (test qibc=3092) PCO2, VENOUS-POC (BEAKER) 40.3 mm Hg 41.0-51.0 (test wilc=9959) PO2, VENOUS-POC (BEAKER) 43.0 mm Hg 25.0-40.0 (test fkix=4809) SO2, VENOUS-POC (BEAKER) 82.0 % 40.0-70.0 (test yqdl=5438) HCO3, VENOUS-POC (BEAKER) 29.7 meq/L 21.0-29.0 (test fkna=1921) BASE EXCESS, VENOUS-POC 6.0 meq/L -2.0-3.0 (BEAKER) (test ztfa=8664) [id number] 20:43:00 Test Item Value Reference Range Comments POC-SODIUM (BEAKER) (test 137 meq/L 135-148 TESTED AT [address] ikat=3132) [place] [address] [id number] 20:43:00 Test Item Value Reference Range Comments POC-POTASSIUM (BEAKER) (test 5.0 meq/L 3.6-5.5 TESTED AT [address] pmnk=3347) [place] [address] [id number] 20:43:00 Test Item Value Reference Range Comments POC-GLUCOSE (BEAKER) (test 120 mg/dL 70-110 TESTED AT [address] vjcc=3166) [place] [address] POCT-CALCIUM [id number] 20:43:00 Test Item Value Reference Range Comments POC-CALCIUM IONIZED (BEAKER) 1.14 mmol/L 1.12-1.27 TESTED AT [address] (test nzou=8967) [place] [address] [id number] 20:43:00 Test Item Value Reference Range Comments POC-HEMATOCRIT (BEAKER) (test 27 % 36-45 TESTED AT [address] njxi=1998) [place] [address] POCT-GLUCOSE [id number] 18:18:00 Test Item Value Reference Range Comments POC-GLUCOSE METER (BEAKER) 105 mg/dL 70-110 TESTED AT [address] (test okih=6310) [facility] [address] POCT-GLUCOSE [id number] 12:30:00 Test Item Value Reference Range Comments POC-GLUCOSE METER (BEAKER) 97 mg/dL 70-110 TESTED AT [facility] [address] [facility] (test vpkr=1685) [facility] [address] RAD, CHEST, 1 VIEW, NON [id number] 10:02:00Reason for exam:->post extubationShould this be performed at the bedside?->YesFINAL REPORT CLINICAL HISTORY: post extubation TECHNIQUE: 1 view of the chest. COMPARISON: 01/25/2019 IMPRESSION: The right central line is unchanged. There are no focal infiltrates or significant appearing effusions. The cardiomediastinal silhouette is magnified by technique. Signed: Carlee Lindo Verified Date/Time: 01/26/2019 10:02:54 Reading Location: [facility] Reading Room COMPREHENSIVE METABOLIC [id number] 06:30:00 Test Item Value Reference Range Comments TOTAL PROTEIN (BEAKER) 5.3 gm/dL 6.0-8.3 Specimen slightly (test bddf=487) hemolyzed ALBUMIN (BEAKER) (test 2.4 g/dL 3.5-5.0 Specimen slightly xybf=3877) hemolyzed ALKALINE PHOSPHATASE 64 U/L 40-150 (BEAKER) (test wzym=493) BILIRUBIN TOTAL (BEAKER) 0.6 mg/dL 0.2-1.2 Specimen slightly (test ehvd=573) hemolyzed SODIUM (BEAKER) (test 138 meq/L 136-145 nwhn=208) POTASSIUM (BEAKER) (test 3.8 meq/L 3.5-5.1 Specimen slightly zoam=837) hemolyzed CHLORIDE (BEAKER) (test 103 meq/L 98-107 ahei=300) CO2 (BEAKER) (test 29 meq/L 22-29 mtbd=402) BLOOD UREA NITROGEN 27 mg/dL 7-21 (BEAKER) (test jqto=962) CREATININE (BEAKER) (test 3.09 mg/dL 0.57-1.25 Specimen slightly xobu=371) hemolyzed GLUCOSE RANDOM (BEAKER) 89 mg/dL 70-105 (test symi=821) CALCIUM (BEAKER) (test 8.1 mg/dL 8.4-10.2 nszo=474) AST (SGOT) (BEAKER) (test 18 U/L 5-34 Specimen slightly rylq=439) hemolyzed ALT (SGPT) (BEAKER) (test < U/L 6-55 Specimen slightly lgny=102) hemolyzed EGFR (BEAKER) (test 18 mL/min/1.73 sq m ESTIMATED GFR IS NOT ngtd=5034) ACCURATE CREATININE CLEARANCE IN PREDICTING GLOMERULAR FILTRATION RATE. ESTIMATED GFR IS NOT APPLICABLE FOR DIALYSIS PATIENTS. [id number] 06:28:00 Test Item Value Reference Range Comments MAGNESIUM (BEAKER) (test 1.6 mg/dL 1.6-2.6 Specimen slightly hemolyzed yiqd=532) [id number] 06:28:00 Test Item Value Reference Range Comments PHOSPHORUS (BEAKER) (test 3.5 mg/dL 2.3-4.7 Specimen slightly hemolyzed sxlv=768) CALCIUM, [id number] 06:18:00 Test Item Value Reference Range Comments CALCIUM IONIZED (BEAKER) (test sfdo=933) 1.01 mmol/L 1.12-1.27 PH, BLOOD (BEAKER) (test ccwa=7327) 7.50 CBC W/PLT COUNT & AUTO [id number] 06:03:00 Test Item Value Reference Range Comments WHITE BLOOD CELL COUNT (BEAKER) (test axny=801) 12.0 K/ L 3.5-10.5 RED BLOOD CELL COUNT (BEAKER) (test wkjl=322) 3.04 M/ L 3.93-5.22 HEMOGLOBIN (BEAKER) (test jdzw=680) 8.6 GM/DL 11.2-15.7 HEMATOCRIT (BEAKER) (test djxj=247) 26.9 % 34.1-44.9 MEAN CORPUSCULAR VOLUME (BEAKER) (test cuig=264) 88.5 fL 79.4-94.8 MEAN CORPUSCULAR HEMOGLOBIN (BEAKER) (test 28.3 pg 25.6-32.2 pgaf=129) MEAN CORPUSCULAR HEMOGLOBIN CONC (BEAKER) (test 32.0 GM/DL 32.2-35.5 fxkr=781) RED CELL DISTRIBUTION WIDTH (BEAKER) (test 16.0 % 11.7-14.4 ocmt=075) PLATELET COUNT (BEAKER) (test kswb=346) 91 K/CU MM 150-450 MEAN PLATELET VOLUME (BEAKER) (test tejo=552) 11.0 fL 9.4-12.3 NUCLEATED RED BLOOD CELLS (BEAKER) (test 0 /100 WBC 0-0 gbjh=307) NEUTROPHILS RELATIVE PERCENT (BEAKER) (test 76 % bwhf=864) LYMPHOCYTES RELATIVE PERCENT (BEAKER) (test 9 % zwwt=577) MONOCYTES RELATIVE PERCENT (BEAKER) (test 7 % ybkh=149) EOSINOPHILS RELATIVE PERCENT (BEAKER) (test 6 % vsbb=776) BASOPHILS RELATIVE PERCENT (BEAKER) (test 1 % nhlf=453) NEUTROPHILS ABSOLUTE COUNT (BEAKER) (test 9.05 K/ L 1.56-6.13 jxgq=586) LYMPHOCYTES ABSOLUTE COUNT (BEAKER) (test 1.10 K/ L 1.18-3.74 kkli=866) MONOCYTES ABSOLUTE COUNT (BEAKER) (test irpv=403) 0.85 K/ L 0.24-0.36 EOSINOPHILS ABSOLUTE COUNT (BEAKER) (test 0.70 K/ L 0.04-0.36 sdgs=425) BASOPHILS ABSOLUTE COUNT (BEAKER) (test medj=910) 0.06 K/ L 0.01-0.08 IMMATURE GRANULOCYTES-RELATIVE PERCENT (BEAKER) 2 % 0-1 (test ebjq=2182) CT, [id number] 00:46:00FINAL REPORT CLINICAL HISTORY: Large focal induration [...] MDReport Verified Date/Time: 01/26/2019 00:46:02 Reading Location: [address] Reading Room Electronicallysigned by: GORDON ROBERTS M.D. on 01/26/2019 12:46 AMHEMOGLOBIN AND [id number] 00:02:00 Test Item Value Reference Range Comments HEMOGLOBIN (BEAKER) (test iwvr=516) 9.0 GM/DL 11.2-15.7 HEMATOCRIT (BEAKER) (test jubk=068) 26.9 % 34.1-44.9 POCT-GLUCOSE [id number] 21:49:00 Test Item Value Reference Range Comments POC-GLUCOSE METER (BEAKER) 159 mg/dL 70-110 TESTED AT [address] (test wpgh=9068) [facility] [address] POCT-GLUCOSE [id number] 12:38:00 Test Item Value Reference Range Comments POC-GLUCOSE METER (BEAKER) 163 mg/dL 70-110 TESTED AT [address] (test pgrw=4082) [facility] [address] RAD, CHEST, 1 VIEW, NON [id number] 10:18:00Reason for exam:->post extubationShould this be performed at the bedside?->YesFINAL REPORT CLINICAL HISTORY: post extubation TECHNIQUE: 1 view of the chest. COMPARISON: 01/24/2019 IMPRESSION: The right central line is unchanged. There are no infiltrates or effusions. The cardiomediastinal silhouette is magnified by technique. Signed: Carlee Lindo MDReportVerified Date/Time: 01/25 10:18:20 Reading Location: [facility] Radiology Reading Room POCT- GLUCOSE [id number] 08:57:00 Test Item Value Reference Range Comments POC-GLUCOSE METER (BEAKER) 117 mg/dL 70-110 TESTED AT [address] (test uljp=4874) [facility] [address] COMPREHENSIVE METABOLIC [id number] 08:20:00 Test Item Value Reference Range Comments TOTAL PROTEIN (BEAKER) 5.7 gm/dL 6.0-8.3 (test dncv=748) ALBUMIN (BEAKER) (test 2.6 g/dL 3.5-5.0 bnsq=3336) ALKALINE PHOSPHATASE 71 U/L 40-150 (BEAKER) (test opig=347) BILIRUBIN TOTAL (BEAKER) 0.3 mg/dL 0.2-1.2 (test pkze=224) SODIUM (BEAKER) (test 139 meq/L 136-145 inic=955) POTASSIUM (BEAKER) (test 4.6 meq/L 3.5-5.1 gvmb=554) CHLORIDE (BEAKER) (test 102 meq/L 98-107 diqf=962) CO2 (BEAKER) (test 28 meq/L 22-29 xzgy=464) BLOOD UREA NITROGEN 41 mg/dL 7-21 (BEAKER) (test babg=835) CREATININE (BEAKER) (test 4.56 mg/dL 0.57-1.25 wnqd=918) GLUCOSE RANDOM (BEAKER) 105 mg/dL 70-105 (test bnml=969) CALCIUM (BEAKER) (test 8.3 mg/dL 8.4-10.2 xqie=113) AST (SGOT) (BEAKER) (test 20 U/L 5-34 zyhl=922) ALT (SGPT) (BEAKER) (test < U/L 6-55 dsie=006) EGFR (BEAKER) (test 12 mL/min/1.73 sq m ESTIMATED GFR IS NOT ayba=7923) ACCURATE CREATININE CLEARANCE IN PREDICTING GLOMERULAR FILTRATION RATE. ESTIMATED GFR IS NOT APPLICABLE FOR DIALYSIS PATIENTS. [id number] 08:18:00 Test Item Value Reference Range Comments PHOSPHORUS (BEAKER) (test ummt=577) 4.7 mg/dL 2.3-4.7 [id number] 08:18:00 Test Item Value Reference Range Comments MAGNESIUM (BEAKER) (test udpr=792) 2.0 mg/dL 1.6-2.6 CBC W/PLT COUNT & AUTO [id number] 06:36:00 Test Item Value Reference Range Comments WHITE BLOOD CELL COUNT (BEAKER) (test utdr=451) 10.9 K/ L 3.5-10.5 RED BLOOD CELL COUNT (BEAKER) (test tjly=998) 2.32 M/ L 3.93-5.22 HEMOGLOBIN (BEAKER) (test qmzo=336) 6.7 GM/DL 11.2-15.7 HEMATOCRIT (BEAKER) (test rjgc=710) 21.2 % 34.1-44.9 MEAN CORPUSCULAR VOLUME (BEAKER) (test ngxx=011) 91.4 fL 79.4-94.8 MEAN CORPUSCULAR HEMOGLOBIN (BEAKER) (test 28.9 pg 25.6-32.2 vksw=377) MEAN CORPUSCULAR HEMOGLOBIN CONC (BEAKER) (test 31.6 GM/DL 32.2-35.5 xwcv=677) RED CELL DISTRIBUTION WIDTH (BEAKER) (test 16.6 % 11.7-14.4 lovv=425) PLATELET COUNT (BEAKER) (test gwpy=207) 109 K/CU MM 150-450 MEAN PLATELET VOLUME (BEAKER) (test affn=387) 11.0 fL 9.4-12.3 NUCLEATED RED BLOOD CELLS (BEAKER) (test 0 /100 WBC 0-0 ahab=693) NEUTROPHILS RELATIVE PERCENT (BEAKER) (test 79 % uaht=695) LYMPHOCYTES RELATIVE PERCENT (BEAKER) (test 9 % uelx=872) MONOCYTES RELATIVE PERCENT (BEAKER) (test 6 % uidg=796) EOSINOPHILS RELATIVE PERCENT (BEAKER) (test 5 % xgfj=261) BASOPHILS RELATIVE PERCENT (BEAKER) (test 0 % sccp=895) NEUTROPHILS ABSOLUTE COUNT (BEAKER) (test 8.64 K/ L 1.56-6.13 asxr=020) LYMPHOCYTES ABSOLUTE COUNT (BEAKER) (test 0.97 K/ L 1.18-3.74 vsgs=995) MONOCYTES ABSOLUTE COUNT (BEAKER) (test 0.60 K/ L 0.24-0.36 rgtq=049) EOSINOPHILS ABSOLUTE COUNT (BEAKER) (test 0.52 K/ L 0.04-0.36 etpk=507) BASOPHILS ABSOLUTE COUNT (BEAKER) (test 0.03 K/ L 0.01-0.08 eszq=920) IMMATURE GRANULOCYTES-RELATIVE PERCENT (BEAKER) 1 % 0-1 (test fggn=7373) CALCIUM, [id number] 06:35:00 Test Item Value Reference Range Comments CALCIUM IONIZED (BEAKER) (test hpql=255) 1.01 mmol/L 1.12-1.27 PH, BLOOD (BEAKER) (test olhx=8402) 7.46 BLOOD [id number] 20:01:00 Test Item Value Reference Range Comments CULTURE (BEAKER) (test ucsl=7730) No growth in 5 days BLOOD [id number] 20:01:00 Test Item Value Reference Range Comments CULTURE (BEAKER) (test cvsu=4947) No growth in 5 days POCT-GLUCOSE [id number] 19:39:00 Test Item Value Reference Range Comments POC-GLUCOSE METER (BEAKER) 181 mg/dL 70-110 TESTED AT [address] (test bvqn=0622) [facility] [address] CBC W/PLT COUNT & AUTO [id number] 18:18:00 Test Item Value Reference Range Comments WHITE BLOOD CELL COUNT (BEAKER) (test rsjp=572) 13.7 K/ L 3.5-10.5 RED BLOOD CELL COUNT (BEAKER) (test ddly=324) 2.38 M/ L 3.93-5.22 HEMOGLOBIN (BEAKER) (test eubj=521) 6.8 GM/DL 11.2-15.7 HEMATOCRIT (BEAKER) (test msjl=873) 21.4 % 34.1-44.9 MEAN CORPUSCULAR VOLUME (BEAKER) (test wrlu=429) 89.9 fL 79.4-94.8 MEAN CORPUSCULAR HEMOGLOBIN (BEAKER) (test 28.6 pg 25.6-32.2 itcq=760) MEAN CORPUSCULAR HEMOGLOBIN CONC (BEAKER) (test 31.8 GM/DL 32.2-35.5 vcpg=288) RED CELL DISTRIBUTION WIDTH (BEAKER) (test 16.4 % 11.7-14.4 pqxx=031) PLATELET COUNT (BEAKER) (test ufug=263) 108 K/CU MM 150-450 MEAN PLATELET VOLUME (BEAKER) (test elpg=390) 10.9 fL 9.4-12.3 NUCLEATED RED BLOOD CELLS (BEAKER) (test 0 /100 WBC 0-0 oezg=664) NEUTROPHILS RELATIVE PERCENT (BEAKER) (test 87 % vmyi=291) LYMPHOCYTES RELATIVE PERCENT (BEAKER) (test 5 % ezeq=316) MONOCYTES RELATIVE PERCENT (BEAKER) (test 3 % orsb=682) EOSINOPHILS RELATIVE PERCENT (BEAKER) (test 4 % rjlp=415) BASOPHILS RELATIVE PERCENT (BEAKER) (test 0 % pmcb=977) NEUTROPHILS ABSOLUTE COUNT (BEAKER) (test 11.89 K/ L 1.56-6.13 zybx=154) LYMPHOCYTES ABSOLUTE COUNT (BEAKER) (test 0.66 K/ L 1.18-3.74 ogmn=322) MONOCYTES ABSOLUTE COUNT (BEAKER) (test 0.47 K/ L 0.24-0.36 mahs=550) EOSINOPHILS ABSOLUTE COUNT (BEAKER) (test 0.48 K/ L 0.04-0.36 zfun=090) BASOPHILS ABSOLUTE COUNT (BEAKER) (test 0.02 K/ L 0.01-0.08 nvbc=645) IMMATURE GRANULOCYTES-RELATIVE PERCENT (BEAKER) 1 % 0-1 (test dkiu=5736) POCT-GLUCOSE [id number] 18:15:00 Test Item Value Reference Range Comments POC-GLUCOSE METER (BEAKER) 198 mg/dL 70-110 TESTED AT [address] (test tyeo=3369) [facility] [address] HEMOGLOBIN AND [id number] 17:20:00 Test Item Value Reference Range Comments HEMOGLOBIN (BEAKER) (test ptwk=269) 6.7 GM/DL 11.2-15.7 HEMATOCRIT (BEAKER) (test eeki=829) 21.6 % 34.1-44.9 POCT-GLUCOSE [id number] 16:28:00 Test Item Value Reference Range Comments POC-GLUCOSE METER (BEAKER) 143 mg/dL 70-110 TESTED AT [address] (test wfud=8316) [place] [id number] POCT-GLUCOSE [id number] 12:06:00 Test Item Value Reference Range Comments POC-GLUCOSE METER (BEAKER) 139 mg/dL 70-110 TESTED AT [address] (test igei=7685) [facility] [address] [id number] 09:03:00 Test Item Value Reference Range Comments AMMONIA (BEAKER) (test zkte=447) 18 mol/L 18-72 RAD, CHEST, 1 VIEW, NON [id number] 08:38:00Reason for exam:->post extubationShould this be performed at the bedside?->YesFINAL REPORT CLINICAL HISTORY: post extubation TECHNIQUE: 1 view of the chest. COMPARISON: 01/23/2019 IMPRESSION: The right central line is unchanged. Medial left lung base consolidation is unchanged. There is no increasing pleural fluid. The cardiomediastinal silhouette is magnified by technique. Signed: Carlee Lindo Verified Date/Time: 01/24/2019 08:38:05 Reading Location: [facility] Radiology Reading Room COMPREHENSIVE METABOLIC [id number] 08:21:00 Test Item Value Reference Range Comments TOTAL PROTEIN (BEAKER) 6.0 gm/dL 6.0-8.3 (test ersr=803) ALBUMIN (BEAKER) (test 2.9 g/dL 3.5-5.0 nkwo=2680) ALKALINE PHOSPHATASE 71 U/L 40-150 (BEAKER) (test monp=137) BILIRUBIN TOTAL (BEAKER) 0.5 mg/dL 0.2-1.2 (test pwdm=939) SODIUM (BEAKER) (test 137 meq/L 136-145 ivts=089) POTASSIUM (BEAKER) (test 4.2 meq/L 3.5-5.1 nely=823) CHLORIDE (BEAKER) (test 100 meq/L 98-107 vqrz=756) CO2 (BEAKER) (test 27 meq/L 22-29 yoiz=785) BLOOD UREA NITROGEN 23 mg/dL 7-21 (BEAKER) (test wgsm=116) CREATININE (BEAKER) (test 3.43 mg/dL 0.57-1.25 vcys=594) GLUCOSE RANDOM (BEAKER) 123 mg/dL 70-105 (test gjxf=565) CALCIUM (BEAKER) (test 8.1 mg/dL 8.4-10.2 swqt=698) AST (SGOT) (BEAKER) (test 21 U/L 5-34 scxi=200) ALT (SGPT) (BEAKER) (test < U/L 6-55 zecv=149) EGFR (BEAKER) (test 16 mL/min/1.73 sq m ESTIMATED GFR IS NOT kewz=1342) ACCURATE CREATININE CLEARANCE IN PREDICTING GLOMERULAR FILTRATION RATE. ESTIMATED GFR IS NOT APPLICABLE FOR DIALYSIS PATIENTS. [id number] 08:12:00 Test Item Value Reference Range Comments PHOSPHORUS (BEAKER) (test kxtc=117) 4.3 mg/dL 2.3-4.7 [id number] 08:12:00 Test Item Value Reference Range Comments MAGNESIUM (BEAKER) (test sjhp=240) 1.8 mg/dL 1.6-2.6 VITAMIN B12 AND [id number] 06:28:00 Test Item Value Reference Range Comments VITAMIN B12 (BEAKER) (test yjjf=181) 1321 pg/mL 213-816 FOLATE (BEAKER) (test hfjn=227) 5.2 ng/mL >=7.0 TSH/FREE T4 IF [id number] 06:15:00 Test Item Value Reference Range Comments THYROID STIMULATING HORMONE (BEAKER) (test 3.79 uIU/mL 0.35-4.94 ruye=452) PROTHROMBIN [id number] 05:41:00 Test Item Value Reference Range Comments PROTIME (BEAKER) (test joqr=626) 14.5 seconds 11.7-14.7 INR (BEAKER) (test yewq=583) 1.2 <=5.9 RECOMMENDED COUMADIN/WARFARIN INR THERAPY RANGESSTANDARD DOSE: 2.0 - 3.0 Includes: PROPHYLAXIS forvenous thrombosis, systemic embolization; TREATMENT for venous thrombosis and/or pulmonary embolus.HIGH RISK: Target INR is 2.5-3.5 for patients with mechanical heart valves.CBC W/PLT COUNT & AUTO [id number] 05:28:00 Test Item Value Reference Range Comments WHITE BLOOD CELL COUNT (BEAKER) (test wxhq=049) 14.0 K/ L 3.5-10.5 RED BLOOD CELL COUNT (BEAKER) (test wulj=205) 2.43 M/ L 3.93-5.22 HEMOGLOBIN (BEAKER) (test xphv=041) 7.0 GM/DL 11.2-15.7 HEMATOCRIT (BEAKER) (test sref=745) 22.2 % 34.1-44.9 MEAN CORPUSCULAR VOLUME (BEAKER) (test trce=332) 91.4 fL 79.4-94.8 MEAN CORPUSCULAR HEMOGLOBIN (BEAKER) (test 28.8 pg 25.6-32.2 ieke=106) MEAN CORPUSCULAR HEMOGLOBIN CONC (BEAKER) (test 31.5 GM/DL 32.2-35.5 vavf=295) RED CELL DISTRIBUTION WIDTH (BEAKER) (test 16.5 % 11.7-14.4 uotp=576) PLATELET COUNT (BEAKER) (test bgsd=172) 90 K/CU MM 150-450 MEAN PLATELET VOLUME (BEAKER) (test ivmv=484) 10.7 fL 9.4-12.3 NUCLEATED RED BLOOD CELLS (BEAKER) (test 0 /100 WBC 0-0 aopm=122) NEUTROPHILS RELATIVE PERCENT (BEAKER) (test 84 % lolq=417) LYMPHOCYTES RELATIVE PERCENT (BEAKER) (test 6 % kleo=124) MONOCYTES RELATIVE PERCENT (BEAKER) (test 5 % dyev=049) EOSINOPHILS RELATIVE PERCENT (BEAKER) (test 3 % hzey=813) BASOPHILS RELATIVE PERCENT (BEAKER) (test 0 % rpsw=385) NEUTROPHILS ABSOLUTE COUNT (BEAKER) (test 11.82 K/ L 1.56-6.13 arld=724) LYMPHOCYTES ABSOLUTE COUNT (BEAKER) (test 0.87 K/ L 1.18-3.74 ydvt=619) MONOCYTES ABSOLUTE COUNT (BEAKER) (test mizb=150) 0.69 K/ L 0.24-0.36 EOSINOPHILS ABSOLUTE COUNT (BEAKER) (test 0.47 K/ L 0.04-0.36 kdvv=003) BASOPHILS ABSOLUTE COUNT (BEAKER) (test mddz=242) 0.03 K/ L 0.01-0.08 IMMATURE GRANULOCYTES-RELATIVE PERCENT (BEAKER) 1 % 0-1 (test hqjw=0725) URINALYSIS W/ REFLEX URINE [id number] 02:53:00 Test Item Value Reference Range Comments COLOR (BEAKER) (test lasc=072) Yellow CLARITY (BEAKER) (test tqdj=909) Cloudy SPECIFIC GRAVITY UA (BEAKER) (test raqs=014) 1.013 1.001-1.035 PH UA (BEAKER) (test xutt=782) 7.0 5.0-8.0 PROTEIN UA (BEAKER) (test gdft=133) 300 mg/dL Negative GLUCOSE UA (BEAKER) (test uwsp=434) Negative Negative KETONES UA (BEAKER) (test fako=564) Negative Negative BILIRUBIN UA (BEAKER) (test kqwx=097) Negative Negative BLOOD UA (BEAKER) (test poco=352) Moderate Negative NITRITE UA (BEAKER) (test liui=754) Negative Negative LEUKOCYTE ESTERASE UA (BEAKER) (test xsbz=607) Large Negative UROBILINOGEN UA (BEAKER) (test cvrn=747) 0.2 mg/dL 0.2-1.0 RBC UA (BEAKER) (test nlxm=013) 15 /HPF WBC UA (BEAKER) (test yigl=240) 687 /HPF SOURCE(BEAKER) (test zdqn=8798) CT, BRAIN, WITHOUT [id number] 00:46:00FINAL REPORT EXAM: CT head without contrast. [...] suspicion for acute ischemia persists. Signed: Joseline Darling Verified Date/Time: 01/24/2019 00:46: 49 Reading Location: [address] Body Reading Room POCT-GLUCOSE [id number] 23:21:00 Test Item Value Reference Range Comments POC-GLUCOSE METER (BEAKER) 111 mg/dL 70-110 TESTED AT [place] [id number] [facility] (test psvr=0455) [facility] [address] POCT-GLUCOSE [id number] 18:03:00 Test Item Value Reference Range Comments POC-GLUCOSE METER (BEAKER) 141 mg/dL 70-110 TESTED AT [place] [id number] [facility] (test xmrl=1131) [place] [id number] RAD, CHEST, 1 VIEW, NON [id number] 14:38:00Reason for exam:->edemaShould this be performed at [...] Lindo MDReport Verified Date/Time: 14:38:12 Reading Location: [address] Consult Reading Room CT, CTANGIO [id number] 13:43:00Reason for exam:->Symptoms onset less than 6 [...] no major branch occlusion arising from the nulato of [place]. Atherosclerotic disease of the bifurcations [...] MDReport Verified Date/Time: 01/23/2019 13:43:17 Reading Location: [address] Neuro Reading Room CT, CAROTID, [id number] 13:43:00Reason for exam:->Symptoms onset less than 6 [...] no major branch occlusion arising from the nul[place] of [place]. 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 Within the limits of motion artifact, no infarct core or obvious perfusion mismatch is identified within the perfusion parametric maps. The examination was reviewed in real-time with feedback provided to the neurology team at 1320 hours on January 23, 2019. Signed: JR Rogelio, Julio Cm Verified Date/Time: 01/23/2019 13:43:17 Reading Location: [facility] C013V Neuro Reading Room CT, CEREBRAL PERFUSION [id number] 13:43:00Reason for exam:-> Symptom onset less than [...] no major branch occlusion arising from the nulato of [place]. Atherosclerotic disease of the bifurcations [...] MDReport Verified Date/Time: 01/23/2019 13:43:17 Reading Location: [facility] C013V Neuro Reading Room BLOOD GAS, [id number] 12:48:00 Test Item Value Reference Range Comments PH ARTERIAL (BEAKER) (test hrsp=999) 7.52 7.35-7.45 PCO2 ARTERIAL (BEAKER) (test ejdi=395) 37 mmHg 35-45 PO2 ARTERIAL (BEAKER) (test pryu=162) 115 mmHg 80-90 O2 SATURATION ARTERIAL (BEAKER) (test qaxc=761) 98.6 % 96.0-97.0 HCO3 ARTERIAL (BEAKER) (test pmek=307) 30 mmol/L 21-29 BASE EXCESS ARTERIAL (BEAKER) (test rjbj=456) 6.5 mmol/L -2.0-3.0 PATIENT TEMPERATURE (BEAKER) (test dyno=2403) 36.9 C FIO2 (BEAKER) (test uxeo=6888) 21.0 % BLOOD [id number] 12:01:00 Test Item Value Reference Range Comments CULTURE (BEAKER) (test lnuk=9925) No growth in 5 days BLOOD [id number] 12:01:00 Test Item Value Reference Range Comments CULTURE (BEAKER) (test calu=7188) No growth in 5 days POCT-GLUCOSE [id number] 11:47:00 Test Item Value Reference Range Comments POC-GLUCOSE METER (BEAKER) 107 mg/dL 70-110 TESTED AT [address] (test ttcz=5442) [facility] [address] POCT-GLUCOSE [id number] 10:34:00 Test Item Value Reference Range Comments POC-GLUCOSE METER (BEAKER) 94 mg/dL 70-110 TESTED AT [address] (test owta=7878) [facility] [address] COMPREHENSIVE METABOLIC [id number] 06:33:00 Test Item Value Reference Range Comments TOTAL PROTEIN (BEAKER) 6.7 gm/dL 6.0-8.3 (test xtpp=465) ALBUMIN (BEAKER) (test 3.2 g/dL 3.5-5.0 bffk=9558) ALKALINE PHOSPHATASE 72 U/L 40-150 (BEAKER) (test rpif=265) BILIRUBIN TOTAL (BEAKER) 0.5 mg/dL 0.2-1.2 (test fple=485) SODIUM (BEAKER) (test 138 meq/L 136-145 dsdx=866) POTASSIUM (BEAKER) (test 5.6 meq/L 3.5-5.1 sbgj=482) CHLORIDE (BEAKER) (test 100 meq/L 98-107 qlpq=821) CO2 (BEAKER) (test 26 meq/L 22-29 szno=201) BLOOD UREA NITROGEN 51 mg/dL 7-21 (BEAKER) (test yedr=693) CREATININE (BEAKER) (test 5.49 mg/dL 0.57-1.25 vgnj=364) GLUCOSE RANDOM (BEAKER) 115 mg/dL 70-105 (test dvwz=209) CALCIUM (BEAKER) (test 8.3 mg/dL 8.4-10.2 qmhb=139) AST (SGOT) (BEAKER) (test 18 U/L 5-34 didl=001) ALT (SGPT) (BEAKER) (test 17 U/L 6-55 fdbx=691) EGFR (BEAKER) (test 9 mL/min/1.73 sq m ESTIMATED GFR IS NOT lreo=4380) ACCURATE CREATININE CLEARANCE IN PREDICTING GLOMERULAR FILTRATION RATE. ESTIMATED GFR IS NOT APPLICABLE FOR DIALYSIS PATIENTS. [id number] 06:18:00 Test Item Value Reference Range Comments PHOSPHORUS (BEAKER) (test falk=180) 7.1 mg/dL 2.3-4.7 [id number] 06:18:00 Test Item Value Reference Range Comments MAGNESIUM (BEAKER) (test dsab=657) 2.0 mg/dL 1.6-2.6 CBC W/PLT COUNT & AUTO [id number] 06:05:00 Test Item Value Reference Range Comments WHITE BLOOD CELL COUNT (BEAKER) (test erqw=239) 15.5 K/ L 3.5-10.5 RED BLOOD CELL COUNT (BEAKER) (test kkpq=825) 3.03 M/ L 3.93-5.22 HEMOGLOBIN (BEAKER) (test lksn=912) 8.5 GM/DL 11.2-15.7 HEMATOCRIT (BEAKER) (test sbeq=389) 27.1 % 34.1-44.9 MEAN CORPUSCULAR VOLUME (BEAKER) (test rklo=107) 89.4 fL 79.4-94.8 MEAN CORPUSCULAR HEMOGLOBIN (BEAKER) (test 28.1 pg 25.6-32.2 sves=723) MEAN CORPUSCULAR HEMOGLOBIN CONC (BEAKER) (test 31.4 GM/DL 32.2-35.5 eagp=093) RED CELL DISTRIBUTION WIDTH (BEAKER) (test 16.8 % 11.7-14.4 iiwd=004) PLATELET COUNT (BEAKER) (test bxqo=939) 140 K/CU MM 150-450 MEAN PLATELET VOLUME (BEAKER) (test pkld=108) 10.6 fL 9.4-12.3 NUCLEATED RED BLOOD CELLS (BEAKER) (test 0 /100 WBC 0-0 gmpq=075) NEUTROPHILS RELATIVE PERCENT (BEAKER) (test 87 % zchy=460) LYMPHOCYTES RELATIVE PERCENT (BEAKER) (test 5 % bsvp=127) MONOCYTES RELATIVE PERCENT (BEAKER) (test 6 % olng=600) EOSINOPHILS RELATIVE PERCENT (BEAKER) (test 1 % qvkv=664) BASOPHILS RELATIVE PERCENT (BEAKER) (test 0 % ngrm=400) NEUTROPHILS ABSOLUTE COUNT (BEAKER) (test 13.58 K/ L 1.56-6.13 rsgl=868) LYMPHOCYTES ABSOLUTE COUNT (BEAKER) (test 0.71 K/ L 1.18-3.74 mkds=687) MONOCYTES ABSOLUTE COUNT (BEAKER) (test 0.98 K/ L 0.24-0.36 kvri=129) EOSINOPHILS ABSOLUTE COUNT (BEAKER) (test 0.11 K/ L 0.04-0.36 jxyh=728) BASOPHILS ABSOLUTE COUNT (BEAKER) (test 0.05 K/ L 0.01-0.08 toig=864) IMMATURE GRANULOCYTES-RELATIVE PERCENT (BEAKER) 1 % 0-1 (test qsjz=0230) CALCIUM, [id number] 05:50:00 Test Item Value Reference Range Comments CALCIUM IONIZED (BEAKER) (test zuip=392) 1.00 mmol/L 1.12-1.27 PH, BLOOD (BEAKER) (test sbas=8078) 7.35 POCT-GLUCOSE [id number] 21:50:00 Test Item Value Reference Range Comments POC-GLUCOSE METER (BEAKER) 138 mg/dL 70-110 TESTED AT [place] [id number] [facility] (test ixaj=4892) [place] [id number] POCT-GLUCOSE [id number] 18:02:00 Test Item Value Reference Range Comments POC-GLUCOSE METER (BEAKER) 147 mg/dL 70-110 TESTED AT [address] (test xqkn=3183) [place] [address] RAD, PELVIS, 1 OR 2 [id number] 15:58:00Reason for exam:->postop ORIFShould this be performed [...] MDReport Verified Date/Time: 01/22/2019 15:58:10 Reading Location: [facility] C013W Consult Reading Room POCT- GLUCOSE [id number] 15:40:00 Test Item Value Reference Range Comments POC-GLUCOSE METER (BEAKER) 134 mg/dL 70-110 TESTED AT [address] (test kyvz=3018) [facility] [address] SC, TRAVEL ADMINISTRATOR IN OR/30 MINUTE [id number] 14:40:00Reason for exam:-> left acetabulum fractureFINAL REPORT [...] Lindo Verified Date/Time: 01/22/2019 14:40:54 Reading Location: [facility] C013W Consult Reading Room RAD, CHEST, 1 VIEW, NON [id number] 09:05:00Reason for exam:->post extubationShould this be performed at the bedside?->YesFINAL REPORT CLINICAL HISTORY: post extubation TECHNIQUE: 1 view of the chest. COMPARISON: 01/21/2019 IMPRESSION: The right central line is unchanged. Left lung base consolidationis unchanged. There is no increasing pleural fluid. The cardiomediastinal silhouette is magnified bytechnique. Signed : Carlee Lindo Verified Date/Time: 01/22/2019 09:05:30 Reading Location:[facility] Radiology Reading Room POCT-GLUCOSE [id number] 08:37:00 Test Item Value Reference Range Comments POC-GLUCOSE METER (BEAKER) 115 mg/dL 70-110 TESTED AT [address] (test pvab=7752) [facility] [address] COMPREHENSIVE METABOLIC [id number] 06:11:00 Test Item Value Reference Range Comments TOTAL PROTEIN (BEAKER) 6.7 gm/dL 6.0-8.3 (test uxzy=595) ALBUMIN (BEAKER) (test 3.2 g/dL 3.5-5.0 hqti=5759) ALKALINE PHOSPHATASE 68 U/L 40-150 (BEAKER) (test igza=043) BILIRUBIN TOTAL (BEAKER) 0.5 mg/dL 0.2-1.2 (test ikva=598) SODIUM (BEAKER) (test 139 meq/L 136-145 bxgm=822) POTASSIUM (BEAKER) (test 4.7 meq/L 3.5-5.1 ajed=884) CHLORIDE (BEAKER) (test 101 meq/L 98-107 ypqf=633) CO2 (BEAKER) (test 29 meq/L 22-29 nfgz=852) BLOOD UREA NITROGEN 36 mg/dL 7-21 (BEAKER) (test bbyl=828) CREATININE (BEAKER) (test 4.24 mg/dL 0.57-1.25 eakc=902) GLUCOSE RANDOM (BEAKER) 105 mg/dL 70-105 (test wrbe=100) CALCIUM (BEAKER) (test 8.4 mg/dL 8.4-10.2 oflo=677) AST (SGOT) (BEAKER) (test 16 U/L 5-34 ucpb=100) ALT (SGPT) (BEAKER) (test 27 U/L 6-55 ubnf=972) EGFR (BEAKER) (test 13 mL/min/1.73 sq m ESTIMATED GFR IS NOT cmfh=5106) ACCURATE CREATININE CLEARANCE IN PREDICTING GLOMERULAR FILTRATION RATE. ESTIMATED GFR IS NOT APPLICABLE FOR DIALYSIS PATIENTS. [id number] 06:10:00 Test Item Value Reference Range Comments PHOSPHORUS (BEAKER) (test aseg=972) 5.2 mg/dL 2.3-4.7 [id number] 06:10:00 Test Item Value Reference Range Comments MAGNESIUM (BEAKER) (test qofn=001) 2.1 mg/dL 1.6-2.6 CBC W/PLT COUNT & AUTO [id number] 05:36:00 Test Item Value Reference Range Comments WHITE BLOOD CELL COUNT (BEAKER) (test prkz=585) 11.7 K/ L 3.5-10.5 RED BLOOD CELL COUNT (BEAKER) (test muud=549) 2.75 M/ L 3.93-5.22 HEMOGLOBIN (BEAKER) (test cdnv=535) 8.0 GM/DL 11.2-15.7 HEMATOCRIT (BEAKER) (test qebo=657) 25.9 % 34.1-44.9 MEAN CORPUSCULAR VOLUME (BEAKER) (test jcnt=144) 94.2 fL 79.4-94.8 MEAN CORPUSCULAR HEMOGLOBIN (BEAKER) (test 29.1 pg 25.6-32.2 nmha=976) MEAN CORPUSCULAR HEMOGLOBIN CONC (BEAKER) (test 30.9 GM/DL 32.2-35.5 tkjr=061) RED CELL DISTRIBUTION WIDTH (BEAKER) (test 15.9 % 11.7-14.4 knhj=324) PLATELET COUNT (BEAKER) (test jkgf=077) 121 K/CU MM 150-450 MEAN PLATELET VOLUME (BEAKER) (test efrr=128) 10.9 fL 9.4-12.3 NUCLEATED RED BLOOD CELLS (BEAKER) (test 0 /100 WBC 0-0 trnx=680) NEUTROPHILS RELATIVE PERCENT (BEAKER) (test 80 % qeqt=278) LYMPHOCYTES RELATIVE PERCENT (BEAKER) (test 6 % iatv=862) MONOCYTES RELATIVE PERCENT (BEAKER) (test 7 % piuy=741) EOSINOPHILS RELATIVE PERCENT (BEAKER) (test 6 % qgoy=163) BASOPHILS RELATIVE PERCENT (BEAKER) (test 0 % jnpy=631) NEUTROPHILS ABSOLUTE COUNT (BEAKER) (test 9.37 K/ L 1.56-6.13 xxfu=743) LYMPHOCYTES ABSOLUTE COUNT (BEAKER) (test 0.74 K/ L 1.18-3.74 ncca=424) MONOCYTES ABSOLUTE COUNT (BEAKER) (test 0.85 K/ L 0.24-0.36 shkc=055) EOSINOPHILS ABSOLUTE COUNT (BEAKER) (test 0.64 K/ L 0.04-0.36 tfsh=226) BASOPHILS ABSOLUTE COUNT (BEAKER) (test 0.04 K/ L 0.01-0.08 ocsx=084) IMMATURE GRANULOCYTES-RELATIVE PERCENT (BEAKER) 1 % 0-1 (test nhjn=9741) BLOOD [id number] 20:01:00 Test Item Value Reference Range Comments CULTURE (BEAKER) (test wgwh=7536) No growth in 5 days POCT-GLUCOSE [id number] 18:30:00 Test Item Value Reference Range Comments POC-GLUCOSE METER (BEAKER) 147 mg/dL 70-110 TESTED AT [facility] [address] [facility] (test sjjx=6915) [facility] [address] POCT-GLUCOSE [id number] 13:50:00 Test Item Value Reference Range Comments POC-GLUCOSE METER (BEAKER) 159 mg/dL 70-110 TESTED AT [place] [id number] [facility] (test ocqq=4488) [facility] [address] RAD, PELVIS, 1 OR 2 [id number] 12:51:00Reason for exam:->s/p L distal femur traction [...] and lower extremity vasculature. Signed: [facility] Verified Date/Time : 01/21/2019 12:51:37 Reading Location: [facility] C013Y CT Body Reading Room CT, PELVIS, WO [id number] 09:49:00FINAL REPORT CT of the pelvis without [...] as described. Advanced vascular calcification. Signed: Faiza Chuort Verified Date/Time: 01/21/201909:49:33 Reading Location: [facility] C013V Neuro Reading Room POCT-GLUCOSE [id number] 08:57:00 Test Item Value Reference Range Comments POC-GLUCOSE METER (BEAKER) 176 mg/dL 70-110 TESTED AT [facility] [address] [place] [address] (test kklo=9932) [facility] [address] CBC W/PLT COUNT & AUTO [id number] 08:19:00 Test Item Value Reference Range Comments WHITE BLOOD CELL COUNT (BEAKER) (test kkvo=532) 14.3 K/ L 3.5-10.5 RED BLOOD CELL COUNT (BEAKER) (test gmrj=118) 2.91 M/ L 3.93-5.22 HEMOGLOBIN (BEAKER) (test xkwx=800) 8.4 GM/DL 11.2-15.7 HEMATOCRIT (BEAKER) (test rdjh=724) 27.4 % 34.1-44.9 MEAN CORPUSCULAR VOLUME (BEAKER) (test ftof=805) 94.2 fL 79.4-94.8 MEAN CORPUSCULAR HEMOGLOBIN (BEAKER) (test 28.9 pg 25.6-32.2 rpwd=071) MEAN CORPUSCULAR HEMOGLOBIN CONC (BEAKER) (test 30.7 GM/DL 32.2-35.5 oulw=680) RED CELL DISTRIBUTION WIDTH (BEAKER) (test 15.8 % 11.7-14.4 nrsy=195) PLATELET COUNT (BEAKER) (test kahz=363) 124 K/CU MM 150-450 MEAN PLATELET VOLUME (BEAKER) (test rtdq=093) 10.8 fL 9.4-12.3 NUCLEATED RED BLOOD CELLS (BEAKER) (test 0 /100 WBC 0-0 sixz=375) NEUTROPHILS RELATIVE PERCENT (BEAKER) (test 87 % pgnl=557) LYMPHOCYTES RELATIVE PERCENT (BEAKER) (test 3 % jcao=717) MONOCYTES RELATIVE PERCENT (BEAKER) (test 8 % seag=412) EOSINOPHILS RELATIVE PERCENT (BEAKER) (test 1 % mwdl=112) BASOPHILS RELATIVE PERCENT (BEAKER) (test 0 % tgql=900) NEUTROPHILS ABSOLUTE COUNT (BEAKER) (test 12.34 K/ L 1.56-6.13 chiz=728) LYMPHOCYTES ABSOLUTE COUNT (BEAKER) (test 0.42 K/ L 1.18-3.74 kkft=648) MONOCYTES ABSOLUTE COUNT (BEAKER) (test 1.20 K/ L 0.24-0.36 wfvz=905) EOSINOPHILS ABSOLUTE COUNT (BEAKER) (test 0.14 K/ L 0.04-0.36 hwxy=364) BASOPHILS ABSOLUTE COUNT (BEAKER) (test 0.03 K/ L 0.01-0.08 hpue=610) IMMATURE GRANULOCYTES-RELATIVE PERCENT (BEAKER) 1 % 0-1 (test txyg=7009) RAD, PELVIS, 1 OR 2 [id number] 08:17:00Reason for exam:->L acetabulum fxFINAL REPORT Technique: [...] are seen. Signed: Claudio Junior MDReport Verified Date/Time: 01/21 08:17:20 Reading Location: [address] Reading Room RAD, FEMUR, MIN. 2 VIEWS, [id number] 08:17:00Reason for exam:->L thigh pain after in- [...] osteopenia. Vascular calcifications are seen. Signed: Claudio JuniorAmitive Verified Date/ Time: 01/21/2019 08:17:20 Reading Location: [address] Transitional Reading Room RAD , LEG, [id number] 08:17:00Reason for exam:->L tib/fib pain after in [...] Vascular calcifications are seen. Signed: Claudio Junior MDRded[facility]it[facility] Verified Date/ Time: 01/21/2019 08:17:20 Reading Location: [facility] C0[facility] Transitional Reading Room COMPREHENSIVE METABOLIC [id number] 07:41:00 Test Item Value Reference Range Comments TOTAL PROTEIN (BEAKER) 6.8 gm/dL 6.0-8.3 (test qmwy=814) ALBUMIN (BEAKER) (test 3.3 g/dL 3.5-5.0 svny=0188) ALKALINE PHOSPHATASE 73 U/L 40-150 (BEAKER) (test vdup=038) BILIRUBIN TOTAL (BEAKER) 0.6 mg/dL 0.2-1.2 (test lumt=040) SODIUM (BEAKER) (test 137 meq/L 136-145 fxcr=418) POTASSIUM (BEAKER) (test 4.0 meq/L 3.5-5.1 tmpf=057) CHLORIDE (BEAKER) (test 99 meq/L 98-107 dhvx=204) CO2 (BEAKER) (test 29 meq/L 22-29 rltw=871) BLOOD UREA NITROGEN 21 mg/dL 7-21 (BEAKER) (test uftv=503) CREATININE (BEAKER) (test 2.88 mg/dL 0.57-1.25 ohpe=231) GLUCOSE RANDOM (BEAKER) 154 mg/dL 70-105 (test ryxo=134) CALCIUM (BEAKER) (test 8.5 mg/dL 8.4-10.2 uzha=740) AST (SGOT) (BEAKER) (test 22 U/L 5-34 bysv=303) ALT (SGPT) (BEAKER) (test 40 U/L 6-55 tvfp=296) EGFR (BEAKER) (test 20 mL/min/1.73 sq m ESTIMATED GFR IS NOT kzij=8911) ACCURATE CREATININE CLEARANCE IN PREDICTING GLOMERULAR FILTRATION RATE. ESTIMATED GFR IS NOT APPLICABLE FOR DIALYSIS PATIENTS. [id number] 07:32:00 Test Item Value Reference Range Comments PHOSPHORUS (BEAKER) (test lgwk=554) 3.5 mg/dL 2.3-4.7 [id number] 07:32:00 Test Item Value Reference Range Comments MAGNESIUM (BEAKER) (test dhvd=913) 1.8 mg/dL 1.6-2.6 VANCOMYCIN LEVEL, [id number] 07:30:00 Test Item Value Reference Range Comments VANCOMYCIN RANDOM (BEAKER) (test trzr=096) 13.5 ug/mL Reference Range: No NormalsCALCIUM, [id number] 07:07:00 Test Item Value Reference Range Comments CALCIUM IONIZED (BEAKER) (test jfvp=361) 0.97 mmol/L 1.12-1.27 PH, BLOOD (BEAKER) (test cxds=7748) 7.43 RAD, KNEE, 3 VIEWS, [id number] 04:15:00Reason for exam:->fallFINAL REPORT RAD, KNEE, 3 VIEWS, LEFT CLINICAL INDICATION: fall COMPARISON: None FINDINGS: Frontal, oblique and cross table lateral views of the left knee were obtained. There is no acute fracture or dislocation. The joint space are maintained. There are vascular calcifications. IMPRESSION: No acute fracture or dislocation. Signed: Joseline Darling Verified Date/ Time: 01/21/2019 04:15:52 Reading Location: [address] Body Reading Room RAD , HIP, 2 VIEWS, [id number] 04:06:00Reason for exam:->FallFINAL REPORT RAD, HIP, 2 [...] Verified Date/Time: 01/21/2019 04 :06:53 Reading Location: [address] Body ReadingRoom RAD, CHEST, 2 [id number] 04:04:00Reason for exam:->fallFINAL REPORT Exam: Chest x-ray, [...] Joseline Darling Verified Date/Time: 01/21/2019 04:04:05Reading Location: [address] Body Reading Room CT, BRAIN, WITHOUT [id number] 03 :40:00FINAL REPORT EXAM: CT head without [...] extra-axial fluid collection or calvarial fracture. Signed: Joseline Darling Verified Date/Time: 2018 03:40:38 Reading Location: [facility] C013Y CT Body Reading Room POCT- GLUCOSE [id number] 02:33:00 Test Item Value Reference Range Comments POC-GLUCOSE METER (BEAKER) 124 mg/dL 70-110 TESTED AT [address] (test ayvi=4668) [facility] [address] POCT-GLUCOSE [id number] 18:31:00 Test Item Value Reference Range Comments POC-GLUCOSE METER (BEAKER) 120 mg/dL 70-110 TESTED AT [address] (test kaqs=1159) [facility] [address] POCT-GLUCOSE [id number] 13:05:00 Test Item Value Reference Range Comments POC-GLUCOSE METER (BEAKER) 107 mg/dL 70-110 [address] (test xbnk=1113) [facility] [address] BLOOD [id number] 09:39:00 Test Item Value Reference Range Comments CULTURE (BEAKER) From Anaerobic Bottle Only (test etjl=1166) Coagulase negative Staphylococcusof a second type GRAM STAIN RESULT From aerobic and (BEAKER) (test anaerobic bottles: tssd=8256) gram positive cocci in pairs and clusters [id number] 05:14:00 Test Item Value Reference Range Comments PHOSPHORUS (BEAKER) (test cxwb=910) 6.0 mg/dL 2.3-4.7 [id number] 05:14:00 Test Item Value Reference Range Comments MAGNESIUM (BEAKER) (test dujb=033) 2.3 mg/dL 1.6-2.6 COMPREHENSIVE METABOLIC [id number] 05:14:00 Test Item Value Reference Range Comments TOTAL PROTEIN (BEAKER) 5.9 gm/dL 6.0-8.3 (test ihmo=937) ALBUMIN (BEAKER) (test 2.9 g/dL 3.5-5.0 awjx=8775) ALKALINE PHOSPHATASE 68 U/L 40-150 (BEAKER) (test yyie=567) BILIRUBIN TOTAL (BEAKER) 0.6 mg/dL 0.2-1.2 (test mwwf=214) SODIUM (BEAKER) (test 142 meq/L 136-145 ywzx=133) POTASSIUM (BEAKER) (test 4.4 meq/L 3.5-5.1 deqb=256) CHLORIDE (BEAKER) (test 106 meq/L 98-107 pnzp=535) CO2 (BEAKER) (test 23 meq/L 22-29 lzxg=355) BLOOD UREA NITROGEN 33 mg/dL 7-21 (BEAKER) (test kbmy=631) CREATININE (BEAKER) (test 3.90 mg/dL 0.57-1.25 rutt=565) GLUCOSE RANDOM (BEAKER) 88 mg/dL 70-105 (test xjpl=218) CALCIUM (BEAKER) (test 8.4 mg/dL 8.4-10.2 ttwp=840) AST (SGOT) (BEAKER) (test 20 U/L 5-34 vqir=530) ALT (SGPT) (BEAKER) (test 42 U/L 6-55 issq=573) EGFR (BEAKER) (test 14 mL/min/1.73 sq m ESTIMATED GFR IS NOT ycfv=0433) ACCURATE CREATININE CLEARANCE IN PREDICTING GLOMERULAR FILTRATION RATE. ESTIMATED GFR IS NOT APPLICABLE FOR DIALYSIS PATIENTS. CBC W/PLT COUNT & AUTO [id number] 04:46:00 Test Item Value Reference Range Comments WHITE BLOOD CELL COUNT (BEAKER) (test vvtz=386) 13.4 K/ L 3.5-10.5 RED BLOOD CELL COUNT (BEAKER) (test iefl=754) 2.73 M/ L 3.93-5.22 HEMOGLOBIN (BEAKER) (test ljpw=784) 8.0 GM/DL 11.2-15.7 HEMATOCRIT (BEAKER) (test cclt=841) 25.4 % 34.1-44.9 MEAN CORPUSCULAR VOLUME (BEAKER) (test dxgx=328) 93.0 fL 79.4-94.8 MEAN CORPUSCULAR HEMOGLOBIN (BEAKER) (test 29.3 pg 25.6-32.2 acda=514) MEAN CORPUSCULAR HEMOGLOBIN CONC (BEAKER) (test 31.5 GM/DL 32.2-35.5 nbmq=184) RED CELL DISTRIBUTION WIDTH (BEAKER) (test 15.6 % 11.7-14.4 pcqq=019) PLATELET COUNT (BEAKER) (test ofvk=761) 118 K/CU MM 150-450 MEAN PLATELET VOLUME (BEAKER) (test hgmn=848) 10.6 fL 9.4-12.3 NUCLEATED RED BLOOD CELLS (BEAKER) (test 0 /100 WBC 0-0 batq=330) NEUTROPHILS RELATIVE PERCENT (BEAKER) (test 85 % bsce=614) LYMPHOCYTES RELATIVE PERCENT (BEAKER) (test 4 % bcem=040) MONOCYTES RELATIVE PERCENT (BEAKER) (test 9 % nxni=937) EOSINOPHILS RELATIVE PERCENT (BEAKER) (test 0 % yrgo=478) BASOPHILS RELATIVE PERCENT (BEAKER) (test 0 % sbjj=205) NEUTROPHILS ABSOLUTE COUNT (BEAKER) (test 11.43 K/ L 1.56-6.13 kmep=494) LYMPHOCYTES ABSOLUTE COUNT (BEAKER) (test 0.55 K/ L 1.18-3.74 cson=053) MONOCYTES ABSOLUTE COUNT (BEAKER) (test 1.25 K/ L 0.24-0.36 nueq=130) EOSINOPHILS ABSOLUTE COUNT (BEAKER) (test 0.05 K/ L 0.04-0.36 rqku=934) BASOPHILS ABSOLUTE COUNT (BEAKER) (test 0.03 K/ L 0.01-0.08 wrhd=824) IMMATURE GRANULOCYTES-RELATIVE PERCENT (BEAKER) 1 % 0-1 (test xkvh=6163) CALCIUM, [id number] 04:40:00 Test Item Value Reference Range Comments CALCIUM IONIZED (BEAKER) (test wmih=166) 1.11 mmol/L 1.12-1.27 PH, BLOOD (BEAKER) (test oehz=9224) 7.42 [id number] 04:32:00 Test Item Value Reference Range Comments PHOSPHORUS (BEAKER) (test jkfj=872) 6.0 mg/dL 2.3-4.7 [id number] 04:32:00 Test Item Value Reference Range Comments MAGNESIUM (BEAKER) (test hqul=103) 2.2 mg/dL 1.6-2.6 COMPREHENSIVE METABOLIC [id number] 04:32:00 Test Item Value Reference Range Comments TOTAL PROTEIN (BEAKER) 6.2 gm/dL 6.0-8.3 (test dfch=839) ALBUMIN (BEAKER) (test 2.9 g/dL 3.5-5.0 wytw=6813) ALKALINE PHOSPHATASE 70 U/L 40-150 (BEAKER) (test wiha=920) BILIRUBIN TOTAL (BEAKER) 0.6 mg/dL 0.2-1.2 (test uikm=007) SODIUM (BEAKER) (test 143 meq/L 136-145 qday=443) POTASSIUM (BEAKER) (test 4.6 meq/L 3.5-5.1 tmqk=099) CHLORIDE (BEAKER) (test 107 meq/L 98-107 eqzs=316) CO2 (BEAKER) (test 23 meq/L 22-29 ckoz=489) BLOOD UREA NITROGEN 33 mg/dL 7-21 (BEAKER) (test rlbd=020) CREATININE (BEAKER) (test 3.87 mg/dL 0.57-1.25 qyrl=823) GLUCOSE RANDOM (BEAKER) 91 mg/dL 70-105 (test jgyu=536) CALCIUM (BEAKER) (test 8.6 mg/dL 8.4-10.2 olvf=760) AST (SGOT) (BEAKER) (test 25 U/L 5-34 zltc=057) ALT (SGPT) (BEAKER) (test 43 U/L 6-55 gsio=848) EGFR (BEAKER) (test 14 mL/min/1.73 sq m ESTIMATED GFR IS NOT gnmw=0890) ACCURATE CREATININE CLEARANCE IN PREDICTING GLOMERULAR FILTRATION RATE. ESTIMATED GFR IS NOT APPLICABLE FOR DIALYSIS PATIENTS. POCT-GLUCOSE [id number] 00:04:00 Test Item Value Reference Range Comments POC-GLUCOSE METER (BEAKER) 131 mg/dL 70-110 TESTED AT [address] (test wbxp=7334) [place] [address] POCT-GLUCOSE [id number] 17:32:00 Test Item Value Reference Range Comments POC-GLUCOSE METER (BEAKER) 132 mg/dL 70-110 TESTED AT [address] (test xofw=5232) [place] [address] POCT-GLUCOSE [id number] 13:12:00 Test Item Value Reference Range Comments POC-GLUCOSE METER (BEAKER) 79 mg/dL 70-110 TESTED AT [address] (test bvqw=9376) [place] [address] BLOOD CULTURE IDENTIFICATION [id number] 11:47:00 Test Item Value Reference Range Comments LISTERIA MONOCYTOGENES (test Not detected Not detected krtf=2046739) STAPHYLOCOCCUS (test Detected Not detected Coagulase negative Staph qbal=0938234) species (CoNS)- methicillin resistantFirst-line therapy: Vancomycin MecA DETECTED Possible contamination. The likelihood of pathogenicity is increased if the organism is observed in multiple blood cultures obtained from separate venipunctures. Reference Range: Not Detected STAPHYLOCOCCUS AUREUS (test Not detected Not detected rdnu=1352274) STREPTOCOCCUS (test Not detected Not detected xmac=1340679) STREPTOCOCCUS AGALACTIAE (GROUP Not detected Not detected B) (test pdrf=7044829) STREPTOCOCCUS PNEUMONIAE (test Not detected Not detected feyw=6374798) STREPTOCOCCUS PYOGENES (GROUP Not detected Not detected A) (test lrkt=8884231) ACINETOBACTER BAUMANNII (test Not detected Not detected kiwi=9352887) HAEMOPHILUS INFLUENZAE (test Not detected Not detected tljn=9310818) NEISSERIA MENINGITIDIS (test Not detected Not detected qeae=8282174) ENTEROBACTERIACEAE (test Not detected Please refer to culture iqmc=1373854) results for ID and susceptibilities.. ENTEROBACTER CLOACOE COMPLEX Not detected Not detected (test vede=4614108) KLEBSIELLA OXYTOCA (test Not detected Not detected xxdz=4066174) KLEBSIELLA PNEUMONIAE (test Not detected Not detected dvej=3911) PROTEUS (test rrcx=3693231) Not detected Not detected SERRATIA MARCESCENS (test Not detected Not detected fchp=6267295) ARACELI ALBICANS (test Not detected Not detected emlo=6704899) ARACELI GLABRATA (test Not detected Not detected rmkv=8621623) ARACELI KRUSEI (test Not detected Not detected rzkb=9375237) ARACELI PARAPSILOSIS (test Not detected Not detected igmi=3495563) ARACELI TROPICALIS (test Not detected Not detected mlip=7992589) ESCHERICHIA COLI (test Not detected Not detected yhcj=9789346) METHICILLIN-RESISTANCE GENE Detected Not detected (test sezi=1111815) VANCOMYCIN-RESISTANCE GENE Not detected (test inwq=5321827) CARBAPENEM-RESISTANCE GENE Not detected Please refer to culture (test equz=2865326) results for ID and susceptibilities.. ENTEROCOCCUS-BEAKER (test Not detected Not detected hyxh=5494511) PSEUDOMONAS AERUGINOSA-BEAKER Not detected Not detected (test tons=6049947) Other bacteria and resistance markers not targeted by this PCR panel cannot be excluded; therefore clinical correlation and follow up of serology, culture results, and other molecular studies is required. The results are not intended to be used as the sole means for clinical diagnosis or patient management decisions. This sample was tested at the [facility] using the [employer]amin[employer] Blood Culture ID Panel. It is FDA cleared and has been verified and approved by the [facility] for clinical use. This laboratory is CLIA-certified and College ofAmerican Pathologists (CAP)-accredited to perform high complexity testing.SPUTUM CULTURE + GRAM [id number] 10:05:00 Test Item Value Reference Range Comments CULTURE (BEAKER) (test 2+ Normal respiratory laquita oero=1658) present GRAM STAIN RESULT (BEAKER) 2+ WBCs (test zmxm=7032) GRAM STAIN RESULT (BEAKER) 0-5 epithelial cells (test yepl=15778) GRAM STAIN RESULT (BEAKER) 2+ gram positive cocci in (test enxa=70616) chains, pairs and clusters RAD, CHEST, 1 VIEW, NON [id number] 07:28:00Reason for exam:-> intubatedShould this be performed at the bedside?->YesFINAL REPORT Chest one view. Clinical history: intubated Comparison: 01/18/2019 Discussion: A frontal chest is provided. Cardiomediastinal contours are unchanged. Lines and tubes are in stable position. Unchanged retrocardiac opacity. No new consolidation. No pneumothorax orlarge effusion. Signed: Faiza Chu Verified Date/Time: 01/19/2019 07:28:52 Reading Location:[facility] Radiology Reading Room COMPREHENSIVE METABOLIC [id number] 06:18:00 Test Item Value Reference Range Comments TOTAL PROTEIN (BEAKER) 6.0 gm/dL 6.0-8.3 (test ofrg=082) ALBUMIN (BEAKER) (test 2.9 g/dL 3.5-5.0 izek=5197) ALKALINE PHOSPHATASE 77 U/L 40-150 (BEAKER) (test bquj=805) BILIRUBIN TOTAL (BEAKER) 0.7 mg/dL 0.2-1.2 (test live=528) SODIUM (BEAKER) (test 141 meq/L 136-145 kzas=925) POTASSIUM (BEAKER) (test 4.1 meq/L 3.5-5.1 ygnp=622) CHLORIDE (BEAKER) (test 106 meq/L 98-107 jibo=958) CO2 (BEAKER) (test 25 meq/L 22-29 buky=513) BLOOD UREA NITROGEN 16 mg/dL 7-21 (BEAKER) (test vqkl=711) CREATININE (BEAKER) (test 2.34 mg/dL 0.57-1.25 fehr=248) GLUCOSE RANDOM (BEAKER) 81 mg/dL 70-105 (test oiou=292) CALCIUM (BEAKER) (test 9.2 mg/dL 8.4-10.2 Repeated for delta check pqhp=498) AST (SGOT) (BEAKER) (test 35 U/L 5-34 zepf=451) ALT (SGPT) (BEAKER) (test 61 U/L 6-55 viqi=957) EGFR (BEAKER) (test 25 mL/min/1.73 sq m ESTIMATED GFR IS NOT wquh=7808) ACCURATE CREATININE CLEARANCE IN PREDICTING GLOMERULAR FILTRATION RATE. ESTIMATED GFR IS NOT APPLICABLE FOR DIALYSIS PATIENTS. [id number] 05:50:00 Test Item Value Reference Range Comments PHOSPHORUS (BEAKER) (test seyj=722) 2.9 mg/dL 2.3-4.7 [id number] 05:50:00 Test Item Value Reference Range Comments MAGNESIUM (BEAKER) (test viwx=439) 1.7 mg/dL 1.6-2.6 VANCOMYCIN LEVEL, [id number] 05:50:00 Test Item Value Reference Range Comments VANCOMYCIN RANDOM (BEAKER) (test ikzv=595) 10.9 ug/mL Reference Range: No NormalsCBC W/PLT COUNT & AUTO [id number] 05: 25:00 Test Item Value Reference Range Comments WHITE BLOOD CELL COUNT (BEAKER) (test xung=913) 9.9 K/ L 3.5-10.5 RED BLOOD CELL COUNT (BEAKER) (test kfdc=767) 2.97 M/ L 3.93-5.22 HEMOGLOBIN (BEAKER) (test mvzt=784) 8.6 GM/DL 11.2-15.7 HEMATOCRIT (BEAKER) (test wlvh=050) 26.9 % 34.1-44.9 MEAN CORPUSCULAR VOLUME (BEAKER) (test cfdu=431) 90.6 fL 79.4-94.8 MEAN CORPUSCULAR HEMOGLOBIN (BEAKER) (test 29.0 pg 25.6-32.2 vuuh=143) MEAN CORPUSCULAR HEMOGLOBIN CONC (BEAKER) (test 32.0 GM/DL 32.2-35.5 dwae=565) RED CELL DISTRIBUTION WIDTH (BEAKER) (test 15.5 % 11.7-14.4 sthy=267) PLATELET COUNT (BEAKER) (test lgrr=265) 57 K/CU MM 150-450 MEAN PLATELET VOLUME (BEAKER) (test tezy=390) 11.6 fL 9.4-12.3 NUCLEATED RED BLOOD CELLS (BEAKER) (test 0 /100 WBC 0-0 tnih=319) NEUTROPHILS RELATIVE PERCENT (BEAKER) (test 81 % hftv=404) LYMPHOCYTES RELATIVE PERCENT (BEAKER) (test 7 % bjki=169) MONOCYTES RELATIVE PERCENT (BEAKER) (test 8 % gdcv=259) EOSINOPHILS RELATIVE PERCENT (BEAKER) (test 4 % njws=924) BASOPHILS RELATIVE PERCENT (BEAKER) (test 0 % wfqu=201) NEUTROPHILS ABSOLUTE COUNT (BEAKER) (test 8.02 K/ L 1.56-6.13 egae=344) LYMPHOCYTES ABSOLUTE COUNT (BEAKER) (test 0.68 K/ L 1.18-3.74 push=808) MONOCYTES ABSOLUTE COUNT (BEAKER) (test fkcn=017) 0.74 K/ L 0.24-0.36 EOSINOPHILS ABSOLUTE COUNT (BEAKER) (test 0.38 K/ L 0.04-0.36 lhwg=865) BASOPHILS ABSOLUTE COUNT (BEAKER) (test xzmf=706) 0.03 K/ L 0.01-0.08 IMMATURE GRANULOCYTES-RELATIVE PERCENT (BEAKER) 1 % 0-1 (test ejhk=8156) BLOOD GAS, [id number] 05:21:00 Test Item Value Reference Range Comments PH ARTERIAL (BEAKER) (test mshl=257) 7.57 7.35-7.45 PCO2 ARTERIAL (BEAKER) (test qjaf=675) 28 mmHg 35-45 PO2 ARTERIAL (BEAKER) (test nhwd=924) 177 mmHg 80-90 O2 SATURATION ARTERIAL (BEAKER) (test vuws=525) 99.4 % 96.0-97.0 HCO3 ARTERIAL (BEAKER) (test nsaj=104) 25 mmol/L 21-29 BASE EXCESS ARTERIAL (BEAKER) (test zylz=742) 3.6 mmol/L -2.0-3.0 PATIENT TEMPERATURE (BEAKER) (test zbii=5481) 36.8 C FIO2 (BEAKER) (test zxiz=9576) 40.0 % CALCIUM, [id number] 05:21:00 Test Item Value Reference Range Comments CALCIUM IONIZED (BEAKER) (test wifd=218) 1.17 mmol/L 1.12-1.27 PH, BLOOD (BEAKER) (test xkmi=0315) 7.57 POCT-GLUCOSE [id number] 23:38:00 Test Item Value Reference Range Comments POC-GLUCOSE METER (BEAKER) 101 mg/dL 70-110 TESTED AT [facility] [address] (test yqyh=1112) [facility] [address] POCT-GLUCOSE [id number] 18:20:00 Test Item Value Reference Range Comments POC-GLUCOSE METER (BEAKER) 105 mg/dL 70-110 TESTED AT [address] (test kqcz=5224) [place] [id number] PROTHROMBIN [id number] 15:43:00 Test Item Value Reference Range Comments PROTIME (BEAKER) (test ierr=972) 15.6 seconds 11.7-14.7 INR (BEAKER) (test mkfj=535) 1.3 <=5.9 RECOMMENDED COUMADIN/WARFARIN INR THERAPY RANGESSTANDARD DOSE: 2.0 - 3.0 Includes: PROPHYLAXIS forvenous thrombosis, systemic embolization; TREATMENT for venous thrombosis and/or pulmonary embolus.HIGH RISK: Target INR is 2.5-3.5 for patients with mechanical heart valves.POCT-GLUCOSE [id number] 15:09:00 Test Item Value Reference Range Comments POC-GLUCOSE METER (BEAKER) 110 mg/dL 70-110 TESTED AT [address] (test sbsl=8789) [place] [address] HEPATITIS B SURFACE [id number] 07:49:00 Test Item Value Reference Range Comments HEPATITIS B SURFACE ANTIGEN (2) (BEAKER) (test Nonreactive Nonreactive fjps=9410) [id number] 07:42:00 Test Item Value Reference Range Comments PHOSPHORUS (BEAKER) (test yowl=118) 4.6 mg/dL 2.3-4.7 [id number] 07:42:00 Test Item Value Reference Range Comments MAGNESIUM (BEAKER) (test lgdd=701) 1.7 mg/dL 1.6-2.6 COMPREHENSIVE METABOLIC [id number] 07:42:00 Test Item Value Reference Range Comments TOTAL PROTEIN (BEAKER) 5.5 gm/dL 6.0-8.3 (test fenm=682) ALBUMIN (BEAKER) (test 2.8 g/dL 3.5-5.0 zumq=8394) ALKALINE PHOSPHATASE 64 U/L 40-150 (BEAKER) (test prnp=875) BILIRUBIN TOTAL (BEAKER) 0.5 mg/dL 0.2-1.2 (test asyq=306) SODIUM (BEAKER) (test 140 meq/L 136-145 kbfc=458) POTASSIUM (BEAKER) (test 4.2 meq/L 3.5-5.1 iupz=533) CHLORIDE (BEAKER) (test 110 meq/L 98-107 yzsd=202) CO2 (BEAKER) (test 20 meq/L 22-29 wisx=223) BLOOD UREA NITROGEN 56 mg/dL 7-21 (BEAKER) (test xshm=480) CREATININE (BEAKER) (test 5.56 mg/dL 0.57-1.25 ncqs=459) GLUCOSE RANDOM (BEAKER) 113 mg/dL 70-105 (test qtch=841) CALCIUM (BEAKER) (test 7.7 mg/dL 8.4-10.2 cvfo=030) AST (SGOT) (BEAKER) (test 58 U/L 5-34 krmk=337) ALT (SGPT) (BEAKER) (test 72 U/L 6-55 isga=604) EGFR (BEAKER) (test 9 mL/min/1.73 sq m ESTIMATED GFR IS NOT axrh=5197) ACCURATE CREATININE CLEARANCE IN PREDICTING GLOMERULAR FILTRATION RATE. ESTIMATED GFR IS NOT APPLICABLE FOR DIALYSIS PATIENTS. [id number] 07:01:00 Test Item Value Reference Range Comments PARTIAL THROMBOPLASTIN TIME (BEAKER) (test 83.6 seconds 22.5-36.0 ezkf=650) RAD, CHEST, 1 VIEW, NON [id number] 07:00:00Reason for exam:-> intubatedShould this be performed [...] pneumonia. There is no pneumothorax. Signed: Joseline Darlingeport Verified Date/Time: 01/18/2019 07: 00:55 Reading Location: [facility] C013Y CT Body Reading Room CBC W/PLT COUNT & AUTO [id number] 06:59:00 Test Item Value Reference Range Comments WHITE BLOOD CELL COUNT (BEAKER) (test ytbh=936) 10.1 K/ L 3.5-10.5 RED BLOOD CELL COUNT (BEAKER) (test ewwl=167) 2.70 M/ L 3.93-5.22 HEMOGLOBIN (BEAKER) (test rsvv=356) 7.9 GM/DL 11.2-15.7 HEMATOCRIT (BEAKER) (test xvyr=976) 25.1 % 34.1-44.9 MEAN CORPUSCULAR VOLUME (BEAKER) (test xyqa=546) 93.0 fL 79.4-94.8 MEAN CORPUSCULAR HEMOGLOBIN (BEAKER) (test 29.3 pg 25.6-32.2 getb=670) MEAN CORPUSCULAR HEMOGLOBIN CONC (BEAKER) (test 31.5 GM/DL 32.2-35.5 mtya=326) RED CELL DISTRIBUTION WIDTH (BEAKER) (test 15.9 % 11.7-14.4 bpwg=802) PLATELET COUNT (BEAKER) (test wnih=315) 70 K/CU MM 150-450 MEAN PLATELET VOLUME (BEAKER) (test vupf=641) 11.0 fL 9.4-12.3 NUCLEATED RED BLOOD CELLS (BEAKER) (test 0 /100 WBC 0-0 lljk=825) NEUTROPHILS RELATIVE PERCENT (BEAKER) (test 80 % rwid=006) LYMPHOCYTES RELATIVE PERCENT (BEAKER) (test 7 % bzes=962) MONOCYTES RELATIVE PERCENT (BEAKER) (test 8 % kvjc=381) EOSINOPHILS RELATIVE PERCENT (BEAKER) (test 5 % ckss=290) BASOPHILS RELATIVE PERCENT (BEAKER) (test 0 % byfz=499) NEUTROPHILS ABSOLUTE COUNT (BEAKER) (test 8.04 K/ L 1.56-6.13 dzjc=792) LYMPHOCYTES ABSOLUTE COUNT (BEAKER) (test 0.66 K/ L 1.18-3.74 ussc=426) MONOCYTES ABSOLUTE COUNT (BEAKER) (test puhd=299) 0.81 K/ L 0.24-0.36 EOSINOPHILS ABSOLUTE COUNT (BEAKER) (test 0.50 K/ L 0.04-0.36 lqsa=324) BASOPHILS ABSOLUTE COUNT (BEAKER) (test sfct=463) 0.02 K/ L 0.01-0.08 IMMATURE GRANULOCYTES-RELATIVE PERCENT (BEAKER) 1 % 0-1 (test yhkq=4232) BLOOD GAS, [id number] 06:51:00 Test Item Value Reference Range Comments PH ARTERIAL (BEAKER) (test dgct=795) 7.48 7.35-7.45 PCO2 ARTERIAL (BEAKER) (test hqei=537) 30 mmHg 35-45 PO2 ARTERIAL (BEAKER) (test kpxw=348) 229 mmHg 80-90 O2 SATURATION ARTERIAL (BEAKER) (test dqcl=614) 99.6 % 96.0-97.0 HCO3 ARTERIAL (BEAKER) (test owos=321) 22 mmol/L 21-29 BASE EXCESS ARTERIAL (BEAKER) (test oljh=880) -1.0 mmol/L -2.0-3.0 PATIENT TEMPERATURE (BEAKER) (test nxkk=5004) 37.2 C FIO2 (BEAKER) (test hlux=4332) 40.0 % [id number] 00:22:00 Test Item Value Reference Range Comments POTASSIUM (BEAKER) (test byum=978) 4.3 meq/L 3.5-5.1 [id number] 00:17:00 Test Item Value Reference Range Comments PARTIAL THROMBOPLASTIN TIME (BEAKER) (test 68.7 seconds 22.5-36.0 zfxw=217) [id number] 20:12:00 Test Item Value Reference Range Comments PARTIAL THROMBOPLASTIN TIME (BEAKER) (test 61.8 seconds 22.5-36.0 ugit=467) POCT-GLUCOSE [id number] 18:39:00 Test Item Value Reference Range Comments POC-GLUCOSE METER (BEAKER) 80 mg/dL 70-110 TESTED AT [address] (test pics=6323) [facility] [id number] POCT-GLUCOSE [id number] 12:28:00 Test Item Value Reference Range Comments POC-GLUCOSE METER (BEAKER) 80 mg/dL 70-110 TESTED AT [address] (test qrnx=1603) [facility] [address] [id number] 12:12:00 Test Item Value Reference Range Comments PARTIAL THROMBOPLASTIN TIME (BEAKER) (test 65.0 seconds 22.5-36.0 gkxm=654) TROPONIN [id number] 10:49:00 Test Item Value Reference Range Comments TROPONIN I (BEAKER) (test qvit=752) 0.28 ng/mL 0.00-0.03 Troponin I (TnI) levels [...] acute neurological disease, and persistent tachyarrhythmia.RESPIRATORY PANEL [id number] 09:51: 00 Test Item Value Reference Range Comments HUMAN METAPNEUMOVIRUS (BEAKER) (test Not detected Not detected, Equivocal yekf=7303) RHINOVIRUS (BEAKER) (test apjj=6338) Not detected Not detected, Equivocal INFLUENZA A (BEAKER) (test nfjl=0946) Not detected Not detected, Equivocal INFLUENZA A (NO SUBTYPE) (test Not detected, Equivocal lail=9474) INFLUENZA A SUBTYPE H1 (BEAKER) (test Not detected, Equivocal mkkd=1975) INFLUENZA A SUBTYPE H3 (BEAKER) (test Not detected, Equivocal ykhv=5502) INFLUENZA A SUBTYPE H1-2009 (BEAKER) Not detected, Equivocal (test ahft=3642) INFLUENZA B (BEAKER) (test jmdm=0512) Not detected Not detected, Equivocal RESPIRATORY SYNCYTIAL VIRUS (BEAKER) Not detected Not detected, Equivocal (test iwxt=9498) PARAINFLUENZA VIRUS 1 (BEAKER) (test Not detected Not detected, Equivocal msnw=5364) PARAINFLUENZA VIRUS 2 (BEAKER) (test Not detected Not detected, Equivocal xyem=7521) PARAINFLUENZA VIRUS 3 (BEAKER) (test Not detected Not detected, Equivocal vksf=2379) PARAINFLUENZA VIRUS 4 (BEAKER) (test Not detected Not detected, Equivocal rtwk=2099) ADENOVIRUS (BEAKER) (test znaw=0721) Not detected Not detected, Equivocal CORONAVIRUS 229E (BEAKER) (test Not detected Not detected, Equivocal yqed=5223) CORONAVIRUS HKU1 (BEAKER) (test Not detected Not detected, Equivocal gzdy=6968) CORONAVIRUS NL63 (BEAKER) (test Not detected Not detected, Equivocal slrg=0730) CORONAVIRUS OC43 (BEAKER) (test Not detected Not detected, Equivocal zqxj=9460) BORDETELLA PERTUSSIS (BEAKER) (test Not detected Not detected, Equivocal izvb=4966) CHLAMYDOPHILA PNEUMONIAE (BEAKER) (test Not detected Not detected, Equivocal tewe=7980) MYCOPLASMA PNEUMONIAE (BEAKER) (test Not detected Not detected, Equivocal pcep=0173) Other viruses and bacteria not targeted by this PCR panel cannot be excluded; therefore clinical correlation and follow up of serology, culture results, and other molecular studies is required. The results are not intended to be used as the sole means for clinical diagnosis or patient management decisions. This sample was tested at the [facility] using the KaminarioArray Respiratory Panel. It is FDA cleared and has been verified and approved by the [facility] for clinical use on nasopharyngeal swab specimens.The performance of the FilmArrayRP has not been established in individuals who received influenza vaccine. Recent administration ofa nasal influenza vaccine may cause false positive results for Influenza A and/orInfluenza B.COMPREHENSIVE METABOLIC [id number] 05:18:00 Test Item Value Reference Range Comments TOTAL PROTEIN (BEAKER) 5.2 gm/dL 6.0-8.3 Specimen slightly (test shrt=743) hemolyzed ALBUMIN (BEAKER) (test 2.6 g/dL 3.5-5.0 Specimen slightly gogp=6295) hemolyzed ALKALINE PHOSPHATASE 59 U/L 40-150 (BEAKER) (test shvx=463) BILIRUBIN TOTAL (BEAKER) 0.4 mg/dL 0.2-1.2 Specimen slightly (test lsxo=704) hemolyzed SODIUM (BEAKER) (test 145 meq/L 136-145 kovs=798) POTASSIUM (BEAKER) (test 4.2 meq/L 3.5-5.1 Specimen slightly jzmb=771) hemolyzed CHLORIDE (BEAKER) (test 113 meq/L 98-107 xeap=821) CO2 (BEAKER) (test 22 meq/L 22-29 zjhz=385) BLOOD UREA NITROGEN 50 mg/dL 7-21 (BEAKER) (test wgvi=636) CREATININE (BEAKER) (test 4.73 mg/dL 0.57-1.25 Specimen slightly oimb=044) hemolyzed GLUCOSE RANDOM (BEAKER) 82 mg/dL 70-105 (test uzxx=161) CALCIUM (BEAKER) (test 8.4 mg/dL 8.4-10.2 avrq=803) AST (SGOT) (BEAKER) (test 138 U/L 5-34 Specimen slightly hjjv=320) hemolyzed ALT (SGPT) (BEAKER) (test 94 U/L 6-55 Specimen slightly xeib=140) hemolyzed EGFR (BEAKER) (test 11 mL/min/1.73 sq m ESTIMATED GFR IS NOT asag=1905) ACCURATE CREATININE CLEARANCE IN PREDICTING GLOMERULAR FILTRATION RATE. ESTIMATED GFR IS NOT APPLICABLE FOR DIALYSIS PATIENTS. [id number] 05:17:00 Test Item Value Reference Range Comments MAGNESIUM (BEAKER) (test 1.9 mg/dL 1.6-2.6 Specimen slightly hemolyzed fduu=450) [id number] 05:17:00 Test Item Value Reference Range Comments PHOSPHORUS (BEAKER) (test 4.3 mg/dL 2.3-4.7 Specimen slightly hemolyzed hfhm=680) [id number] 05:01:00 Test Item Value Reference Range Comments PARTIAL THROMBOPLASTIN TIME (BEAKER) (test 108.7 seconds 22.5-36.0 gfjd=687) CBC W/PLT COUNT & AUTO [id number] 04:48:00 Test Item Value Reference Range Comments WHITE BLOOD CELL COUNT (BEAKER) (test cmii=745) 7.8 K/ L 3.5-10.5 RED BLOOD CELL COUNT (BEAKER) (test dfjq=662) 2.61 M/ L 3.93-5.22 HEMOGLOBIN (BEAKER) (test rzyh=078) 7.6 GM/DL 11.2-15.7 HEMATOCRIT (BEAKER) (test vfup=598) 23.8 % 34.1-44.9 MEAN CORPUSCULAR VOLUME (BEAKER) (test vmzh=647) 91.2 fL 79.4-94.8 MEAN CORPUSCULAR HEMOGLOBIN (BEAKER) (test 29.1 pg 25.6-32.2 qhsb=876) MEAN CORPUSCULAR HEMOGLOBIN CONC (BEAKER) (test 31.9 GM/DL 32.2-35.5 nyhk=270) RED CELL DISTRIBUTION WIDTH (BEAKER) (test 15.7 % 11.7-14.4 ezby=566) PLATELET COUNT (BEAKER) (test nklg=662) 52 K/CU MM 150-450 MEAN PLATELET VOLUME (BEAKER) (test rnik=091) 12.1 fL 9.4-12.3 NUCLEATED RED BLOOD CELLS (BEAKER) (test 0 /100 WBC 0-0 pwch=576) NEUTROPHILS RELATIVE PERCENT (BEAKER) (test 74 % ashb=145) LYMPHOCYTES RELATIVE PERCENT (BEAKER) (test 13 % uurg=172) MONOCYTES RELATIVE PERCENT (BEAKER) (test 8 % qopx=624) EOSINOPHILS RELATIVE PERCENT (BEAKER) (test 5 % lbib=681) BASOPHILS RELATIVE PERCENT (BEAKER) (test 0 % qfab=068) NEUTROPHILS ABSOLUTE COUNT (BEAKER) (test 5.72 K/ L 1.56-6.13 hocq=888) LYMPHOCYTES ABSOLUTE COUNT (BEAKER) (test 0.98 K/ L 1.18-3.74 lvzg=533) MONOCYTES ABSOLUTE COUNT (BEAKER) (test enzn=996) 0.64 K/ L 0.24-0.36 EOSINOPHILS ABSOLUTE COUNT (BEAKER) (test 0.38 K/ L 0.04-0.36 gbul=745) BASOPHILS ABSOLUTE COUNT (BEAKER) (test teto=681) 0.02 K/ L 0.01-0.08 IMMATURE GRANULOCYTES-RELATIVE PERCENT (BEAKER) 1 % 0-1 (test autp=6363) BLOOD GAS, [id number] 04:41:00 Test Item Value Reference Range Comments PH ARTERIAL (BEAKER) (test cdja=773) 7.48 7.35-7.45 PCO2 ARTERIAL (BEAKER) (test dlaq=599) 33 mmHg 35-45 PO2 ARTERIAL (BEAKER) (test qvrd=454) 238 mmHg 80-90 O2 SATURATION ARTERIAL (BEAKER) (test dhay=164) 99.6 % 96.0-97.0 HCO3 ARTERIAL (BEAKER) (test rwpp=609) 24 mmol/L 21-29 BASE EXCESS ARTERIAL (BEAKER) (test tafw=913) 0.5 mmol/L -2.0-3.0 PATIENT TEMPERATURE (BEAKER) (test iidz=2682) 36.5 C FIO2 (BEAKER) (test mtcy=9681) 40.0 % CALCIUM, [id number] 04:41:00 Test Item Value Reference Range Comments CALCIUM IONIZED (BEAKER) (test zeyh=783) 1.11 mmol/L 1.12-1.27 PH, BLOOD (BEAKER) (test sanh=8543) 7.47 RAD, CHEST, 1 VIEW, NON [id number] 04:31:00Reason for exam:-> intubatedShould this be performed [...] MDReport Verified Date/Time: 01/17/2019 04:31:10 Reading Location: [address] Neuro Reading Room 04: 31 AMBLOOD GAS, [id number] 01:06:00 Test Item Value Reference Range Comments PH ARTERIAL (BEAKER) (test kphu=658) 7.49 7.35-7.45 PCO2 ARTERIAL (BEAKER) (test pitx=768) 32 mmHg 35-45 PO2 ARTERIAL (BEAKER) (test lelc=847) 193 mmHg 80-90 O2 SATURATION ARTERIAL (BEAKER) (test zhba=073) 99.4 % 96.0-97.0 HCO3 ARTERIAL (BEAKER) (test uquc=278) 24 mmol/L 21-29 BASE EXCESS ARTERIAL (BEAKER) (test tjjj=479) 0.5 mmol/L -2.0-3.0 PATIENT TEMPERATURE (BEAKER) (test cmej=3183) 36.7 C FIO2 (BEAKER) (test oinv=2755) 40.0 % TROPONIN [id number] 23:17:00 Test Item Value Reference Range Comments TROPONIN I (BEAKER) (test pesn=701) 0.41 ng/mL 0.00-0.03 Troponin I (TnI) levels [...] acute neurological disease, and persistent tachyarrhythmia.BASIC METABOLIC [id number] 23:05:00 Test Item Value Reference Range Comments SODIUM (BEAKER) (test 143 meq/L 136-145 ispp=165) POTASSIUM (BEAKER) (test 4.2 meq/L 3.5-5.1 ekos=470) CHLORIDE (BEAKER) (test 111 meq/L 98-107 niss=883) CO2 (BEAKER) (test 22 meq/L 22-29 ioll=031) BLOOD UREA NITROGEN 50 mg/dL 7-21 (BEAKER) (test ngsp=265) CREATININE (BEAKER) (test 4.67 mg/dL 0.57-1.25 cqew=538) GLUCOSE RANDOM (BEAKER) 94 mg/dL 70-105 (test egew=776) CALCIUM (BEAKER) (test 8.4 mg/dL 8.4-10.2 nuwt=820) EGFR (BEAKER) (test 11 mL/min/1.73 sq m ESTIMATED GFR IS NOT eisc=3682) ACCURATE CREATININE CLEARANCE IN PREDICTING GLOMERULAR FILTRATION RATE. ESTIMATED GFR IS NOT APPLICABLE FOR DIALYSIS PATIENTS. [id number] 23:04:00 Test Item Value Reference Range Comments MAGNESIUM (BEAKER) (test pfcn=997) 1.8 mg/dL 1.6-2.6 [id number] 22:56:00 Test Item Value Reference Range Comments PARTIAL THROMBOPLASTIN TIME (BEAKER) (test 76.2 seconds 22.5-36.0 rwss=369) HEMOGLOBIN [id number] 22:46:00 Test Item Value Reference Range Comments HEMOGLOBIN A1C (BEAKER) (test jkva=075) 5.2 % 4.3-6.1 POSSIBLE HEMOGLOBIN S VARIANT NOTED IN HEMOGLOBIN A1C CHROMATOGRAPH. SUGGEST HEMOGLOBIN ELECTROPHORESIS IF CLINICALLY INDICATED.B-TYPE NATRIURETIC FACTOR ( BNP)[id number] 19:08:00 Test Item Value Reference Range Comments B-TYPE NATRIURETIC PEPTIDE (BEAKER) (test 3143 pg/mL 0-100 fkhk=017) TROPONIN [id number] 18:17:00 Test Item Value Reference Range Comments TROPONIN I (BEAKER) (test kwug=038) 0.41 ng/mL 0.00-0.03 Troponin I (TnI) levels [...] acute neurological disease, and persistent tachyarrhythmia.COMPREHENSIVE METABOLIC [id number] 18:10:00 Test Item Value Reference Range Comments TOTAL PROTEIN (BEAKER) 6.0 gm/dL 6.0-8.3 (test drck=537) ALBUMIN (BEAKER) (test 3.1 g/dL 3.5-5.0 wntq=3872) ALKALINE PHOSPHATASE 67 U/L 40-150 (BEAKER) (test vicd=588) BILIRUBIN TOTAL (BEAKER) 0.5 mg/dL 0.2-1.2 (test ierr=538) SODIUM (BEAKER) (test 144 meq/L 136-145 fnen=935) POTASSIUM (BEAKER) (test 4.5 meq/L 3.5-5.1 fuso=237) CHLORIDE (BEAKER) (test 111 meq/L 98-107 eptb=247) CO2 (BEAKER) (test 25 meq/L 22-29 ycqf=195) BLOOD UREA NITROGEN 48 mg/dL 7-21 (BEAKER) (test hfkp=374) CREATININE (BEAKER) (test 4.66 mg/dL 0.57-1.25 sogh=185) GLUCOSE RANDOM (BEAKER) 107 mg/dL 70-105 (test rsny=462) CALCIUM (BEAKER) (test 8.9 mg/dL 8.4-10.2 djvd=766) AST (SGOT) (BEAKER) (test 269 U/L 5-34 hcrt=253) ALT (SGPT) (BEAKER) (test 133 U/L 6-55 leyu=778) EGFR (BEAKER) (test 11 mL/min/1.73 sq m ESTIMATED GFR IS NOT dhfv=1441) ACCURATE CREATININE CLEARANCE IN PREDICTING GLOMERULAR FILTRATION RATE. ESTIMATED GFR IS NOT APPLICABLE FOR DIALYSIS PATIENTS. LIPID [id number] 18:06:00 Test Item Value Reference Range Comments TRIGLYCERIDES (BEAKER) (test diug=576) 87 mg/dL CHOLESTEROL (BEAKER) (test vpby=153) 131 mg/dL HDL CHOLESTEROL (BEAKER) (test rkgv=803) 39 mg/dL LDL CHOLESTEROL CALCULATED (BEAKER) (test 75 mg/dL szdt=367) Triglyceride Reference Range: Low Risk <150 Borderline 150- 199 High Risk 200-499 Very High Risk >=500Cholesterol Reference Range: Low Risk <200 Borderline 200-239 High Risk > 240HDL Cholesterol Reference Range: Low Risk >=60 High Risk <40LDL Cholesterol Reference Range: Optimal <100 Near Optimal 100-129 Borderline 130-159 High 160-189 Very High >=[id number] 18:06:00 Test Item Value Reference Range Comments MAGNESIUM (BEAKER) (test scfz=715) 1.8 mg/dL 1.6-2.6 [id number] 18:06:00 Test Item Value Reference Range Comments PHOSPHORUS (BEAKER) (test hhbc=259) 4.7 mg/dL 2.3-4.7 LACTIC ACID, [id number] 18:03:00 Test Item Value Reference Range Comments LACTATE BLOOD VENOUS (2) (BEAKER) (test 0.8 mmol/L 0.5-2.2 stfn=9850) [id number] 17:58:00 Test Item Value Reference Range Comments PARTIAL THROMBOPLASTIN TIME (BEAKER) (test 32.0 seconds 22.5-36.0 ionp=237) Prior to initiating heparinCBC W/PLT COUNT & AUTO [id number] 17: 55:00 Test Item Value Reference Range Comments WHITE BLOOD CELL COUNT (BEAKER) (test pqdd=773) 9.0 K/ L 3.5-10.5 RED BLOOD CELL COUNT (BEAKER) (test vgnc=440) 2.98 M/ L 3.93-5.22 HEMOGLOBIN (BEAKER) (test rltm=795) 8.7 GM/DL 11.2-15.7 HEMATOCRIT (BEAKER) (test yleh=697) 27.7 % 34.1-44.9 MEAN CORPUSCULAR VOLUME (BEAKER) (test jnnm=167) 93.0 fL 79.4-94.8 MEAN CORPUSCULAR HEMOGLOBIN (BEAKER) (test 29.2 pg 25.6-32.2 epdq=725) MEAN CORPUSCULAR HEMOGLOBIN CONC (BEAKER) (test 31.4 GM/DL 32.2-35.5 neka=123) RED CELL DISTRIBUTION WIDTH (BEAKER) (test 15.7 % 11.7-14.4 olqn=406) PLATELET COUNT (BEAKER) (test eoej=401) 53 K/CU MM 150-450 MEAN PLATELET VOLUME (BEAKER) (test pthe=563) 10.8 fL 9.4-12.3 NUCLEATED RED BLOOD CELLS (BEAKER) (test 0 /100 WBC 0-0 izou=304) NEUTROPHILS RELATIVE PERCENT (BEAKER) (test 83 % ovdo=097) LYMPHOCYTES RELATIVE PERCENT (BEAKER) (test 6 % gfdt=250) MONOCYTES RELATIVE PERCENT (BEAKER) (test 9 % uukr=497) EOSINOPHILS RELATIVE PERCENT (BEAKER) (test 1 % uean=992) BASOPHILS RELATIVE PERCENT (BEAKER) (test 0 % wwwg=723) NEUTROPHILS ABSOLUTE COUNT (BEAKER) (test 7.41 K/ L 1.56-6.13 jeut=000) LYMPHOCYTES ABSOLUTE COUNT (BEAKER) (test 0.49 K/ L 1.18-3.74 gayq=325) MONOCYTES ABSOLUTE COUNT (BEAKER) (test bolx=484) 0.84 K/ L 0.24-0.36 EOSINOPHILS ABSOLUTE COUNT (BEAKER) (test 0.10 K/ L 0.04-0.36 ejjr=191) BASOPHILS ABSOLUTE COUNT (BEAKER) (test wftm=850) 0.03 K/ L 0.01-0.08 IMMATURE GRANULOCYTES-RELATIVE PERCENT (BEAKER) 1 % 0-1 (test bzbb=0937) RAD, CHEST, 1 VIEW, NON [id number] 17:13:00Post-intubationReason for exam:-& gt;intubationShould this be performed [...] Grubbs Verified Date/Time: 01/16/2019 17:13:52 Reading Location: [employer] [facility] RAD, ABDOMEN/KUB, 1 VIEW [id number] 17:06:00Reason for exam:->ng tube placementFINAL REPORT EXAM: [...] Grubbs Verified Date/Time: 01/16/2019 17:06:42 Reading Location: [facility]
[2019-10-24] MEDS ORDERED: ONDANSETRON 4 MG/2 ML VIAL ONE (21:35)
[2019-10-24 22:13] LABS: Absolute Lymphocytes (CBC) 0.7 K/uL (0.7-4.9); Basophils % 0.4 % (0-1.3); Hematocrit 30.4 % (36.0-45.0); Lymphocytes % 11.6 % (15.3-44.8); MPV 8.7 fL (7.6-11.3); RBC Red Blood Cell Count 2.94 M/uL (3.86-4.86)
[2019-10-24 22:14] LABS: Albumin 2.8 g/dL (3.4-5.0); Bilirubin Direct 0.1 mg/dL (0-0.2); Bilirubin Total 0.3 mg/dL (0.2-1.0); Potassium 4.1 mmol/L (3.5-5.1); Protein, Total 6.4 g/dL (6.4-8.2)
--- NOTE | 2019-10-24 23:15 | EDPHYS ---
Physician Documentation [facility] Name: Rhoda Lu Age: 69 yrs Sex: Female : 1950 Arrival Date: 10/24/2019 Time: 21:09 Bed 7 Private MD: ED Physician Octaviano Manriquez HPI: 10/25 03:41 This 69 yrs old Black Female presents to ER via EMS with complaints of tw4 Nausea/Vomiting/Diarrhea. 03:41 The patient presents to the emergency department with nausea, vomiting, diarrhea. tw4 Onset: The symptoms/episode began/occurred 3 day(s) ago. Possible causes: unknown. The symptoms are aggravated by nothing. The symptoms are alleviated by nothing. Associated signs and symptoms: Pertinent positives: weakness. The patient has not experienced similar symptoms in the past. Historical: - Allergies: 10/24 21:17 Codeine; ea 21:17 Demerol; ea 21:17 Morphine; ea 21:17 TETRACYCLINES; ea - Home Meds: 21:17 Zofran (as hydrochloride) 4 mg Oral tab [Active]; Zinc Sulfate Oral [Active]; ea amlodipine 10 mg tab 1 tab once daily [Active]; ascorbic acid (vitamin C) 500 mg tab [Active]; 23:53 tramadol-acetaminophen 37.5-325 mg Oral tab [Active]; tramadol 50 mg Oral tab [Active]; ea nifedipine 90 mg Oral TbER [Active]; hydralazine 50 mg Oral tab 1 tab 2 times per day [Active]; furosemide 20 mg Oral tab 1 tab once daily [Active]; carvedilol 25 mg Oral tab 1 tab 2 times per day [Active]; clonidine HCl 0.2 mg Oral tab [Active]; aspirin 81 mg Oral chew [Active]; atorvastatin 40 mg Oral tab [Active]; Coreg 25 mg Oral tab [Active]; cyclobenzaprine 5 mg Oral tab [Active]; hydralazine 50 mg Oral tab [Active]; lactulose 10 gram/15 mL (15 mL) Oral soln [Active]; - PMHx: 21:17 CHF; Renal Disease; Hypertension; DVT; Diabetes - IDDM; chronic anemia; ea - Immunization history:: Adult Immunizations up to date. - Coronavirus screen:: The patient has NOT traveled to [place] in the past 14 days. - Social history:: Smoking status: Patient denies any tobacco usage or history of. - Ebola Screening: : No symptoms or risks identified at this time. ROS: 10/25 03:41 Constitutional: Negative for fever, chills, and weight loss, Eyes: Negative for injury, tw4 pain, redness, and discharge, Cardiovascular: Negative for chest pain, palpitations, and edema, Respiratory: Negative for shortness of breath, cough, wheezing, and pleuritic chest pain, Back: Negative for injury and pain, Skin: Negative for injury, rash, and discoloration, Neuro: Negative for headache, weakness, numbness, tingling, and seizure. Abdomen/GI: Positive for 03:41 Abdomen/GI: Positive for abdominal pain, nausea and vomiting, nausea, vomiting, and tw4 diarrhea, nausea, vomiting, diarrhea, Negative for abdominal distension, anorexia, dysphagia, hematemesis, black/tarry stool, rectal pain. Exam: 03:41 Constitutional: This is a well developed, well nourished patient who is awake, alert, tw4 and in no acute distress. Head/Face: Normocephalic, atraumatic. Chest/axilla: Normal chest wall appearance and motion. Nontender with no deformity. No lesions are appreciated. Cardiovascular: Regular rate and rhythm with a normal S1 and S2. No gallops, murmurs, or rubs. Normal PMI, no JVD. No pulse deficits. Respiratory: Lungs have equal breath sounds bilaterally, clear to auscultation and percussion. No rales, rhonchi or wheezes noted. No increased work of breathing, no retractions or nasal flaring. Abdomen/GI: Soft, non-tender, with normal bowel sounds. No distension or tympany. No guarding or rebound. No evidence of tenderness throughout. Back: No spinal tenderness. No costovertebral tenderness. Full range of motion. MS/ Extremity: Pulses equal, no cyanosis. Neurovascular intact. Full, normal range of motion. Neuro: Awake and alert, GCS 15, oriented to person, place, time, and situation. Cranial nerves II-XII grossly intact. Motor strength 5/5 in all extremities. Sensory grossly intact. Cerebellar exam normal. Normal gait. Vital Signs: 10/24 21:14 BP 161 / 75; Pulse 56; Resp 18; Temp 98.5; Pulse Ox 99% on R/A; Weight 49.9 kg; Height ea 5 ft. 10 in. (177.80 cm); 23:15 BP 158 / 68; Pulse 60; Resp 18; Pulse Ox 100% ; ea 21:14 Body Mass Index 15.78 (49.90 kg, 177.80 cm) ea MDM: 21:13 Patient medically screened. tw4 10/25 03:41 Differential diagnosis: Nonspecific abd pain, gastritis. Data reviewed: vital signs, tw4 nurses notes. Data interpreted: Pulse oximetry: Interpretation: normal. Counseling: I had a detailed discussion with the patient and/or guardian regarding: the historical points, exam findings, and any diagnostic results supporting the discharge/admit diagnosis. Medication response: Zofran relieved the patient's nausea. Response to treatment: and as a result, I will discharge patient. Special discussion: I discussed with the patient/guardian in detail that at this point there is no indication for admission to the hospital. It is understood, however, that if the symptoms persist or worsen the patient needs to return immediately for re-evaluation. ED course: Pt received Zofran and IVF hydration states that she feels better and wishes to go home. Pt instructed that if symptoms worsen to return to the ED. 10/24 21:15 Order name: Basic Metabolic Panel; Complete Time: 22:50 tw4 10/24 22:51 Interpretation: Normal except: GLUC 124; GFR 19; CRE 3.02; BUN 26. tw4 10/24 21:15 Order name: CBC with Diff; Complete Time: 22:50 4 10/24 22:51 Interpretation: Normal except: RBC 2.94; HGB 10.0; HCT 30.4; MCV 103.7; MCH 34.1; LYM% tw4 11.6. 10/24 21:15 Order name: Creatinine for Radiology; Complete Time: 22:50 tw4 10/24 22:51 Interpretation: Normal except: CRE 3.06; GFR 18. tw10/24 21:15 Order name: Hepatic Function; Complete Time: 22:50 tw4 10/24 22:51 Interpretation: Normal except: AST 12; ALB 2.8; GLOB 3.6; A/G 0.8. tw4 10/24 21:15 Order name: Lipase; Complete Time: 22:51 tw4 10/24 22:51 Interpretation: Within normal limits: LIP 130. tw4 10/24 21:15 Order name: IV Saline Lock; Complete Time: 21:51 tw4 10/24 21:15 Order name: Labs collected and sent; Complete Time: 21:51 tw4 Administered Medications: 10/24 21:47 Drug: Zofran 4 mg Route: IVP; Site: right forearm; aa1 22:45 Follow up: Response: No adverse reaction; Nausea is decreased aa1 23:45 Drug: Zofran 4 mg Route: PO; aa1 23:45 Follow up: Response: Medication administered at discharge. aa1 Disposition: 10/24/19 23:14 Discharged to Home. Impression: Other viral enteritis. - Condition is Stable. - Discharge Instructions: Viral Gastroenteritis, Adult, Wyfi-bh-Fplv. - Prescriptions for Bentyl 20 mg Oral Tablet - take 1 tablet by ORAL route every 6 hours As needed; 20 tablet. Zofran 4 mg Oral Tablet - take 1 tablet by ORAL route every 12 hours As needed; 6 tablet. Lomotil 2.5- 0.025 mg Oral Tablet - take 1 tablet by ORAL route every 6 hours As needed; 20 tablet. - SBAR form, Medication Reconciliation Form, Thank You Letter, Antibiotic Education, Prescription Opioid Use form. - Follow up: Private Physician; When: Upon discharge from the Emergency Department; Reason: If symptoms return, Recheck today's complaints, Continuance of care. - Problem is new. - Symptoms have improved. Signatures: Dispatcher [employer] [facility] Yvette Leal RN RN aa1 Sraah Jasso RN RN ea Wadley, Terrence, MD MD tw4 Corrections: (The following items were deleted from the chart) 23:55 23:14 10/24/2019 23:14 Discharged to Home. Impression: Other viral enteritis. Condition ea is Stable. Forms are Medication Reconciliation Form, Thank You Letter, Antibiotic Education, Prescription Opioid Use. Follow up: Private Physician; When: Upon discharge from the Emergency Department; Reason: If symptoms return, Recheck today's complaints, Continuance of care. Problem is new. Symptoms have improved. tw4
--- NOTE | 2019-10-24 23:15 | ER ---
Nurse's Notes [facility] Name: Rhoda Lu Age: 69 yrs Sex: Female : 1950 Arrival Date: 10/24/2019 Time: 21:09 Bed 7 Private MD: Diagnosis: Other viral enteritis Presentation: 10/24 21:10 Presenting complaint: EMS states: Reports nausea, vomiting and diarrhea since Tuesday. ea Pt reports she went to dialysis yesterday and felt better but today she started to feel tired. Transition of care: patient was not received from another setting of care. Onset of symptoms was October 24, 2019. Risk Assessment: Do you want to hurt yourself or someone else? Patient reports no desire to harm self or others. Initial Sepsis Screen: Does the patient meet any 2 criteria? No. Patient's initial sepsis screen is negative. Does the patient have a suspected source of infection? No. Patient's initial sepsis screen is negative. Care prior to arrival: None. 21:10 Method Of Arrival: EMS: [facility] ea 21:10 Acuity: JANAE 3 ea Historical: - Allergies: 21:17 Codeine; ea 21:17 Demerol; ea 21:17 Morphine; ea 21:17 TETRACYCLINES; ea - Home Meds: 21:17 Zofran (as hydrochloride) 4 mg Oral tab [Active]; Zinc Sulfate Oral [Active]; ea amlodipine 10 mg tab 1 tab once daily [Active]; ascorbic acid (vitamin C) 500 mg tab [Active]; 23:53 tramadol-acetaminophen 37.5-325 mg Oral tab [Active]; tramadol 50 mg Oral tab [Active]; ea nifedipine 90 mg Oral TbER [Active]; hydralazine 50 mg Oral tab 1 tab 2 times per day [Active]; furosemide 20 mg Oral tab 1 tab once daily [Active]; carvedilol 25 mg Oral tab 1 tab 2 times per day [Active]; clonidine HCl 0.2 mg Oral tab [Active]; aspirin 81 mg Oral chew [Active]; atorvastatin 40 mg Oral tab [Active]; Coreg 25 mg Oral tab [Active]; cyclobenzaprine 5 mg Oral tab [Active]; hydralazine 50 mg Oral tab [Active]; lactulose 10 gram/15 mL (15 mL) Oral soln [Active]; - PMHx: 21:17 CHF; Renal Disease; Hypertension; DVT; Diabetes - IDDM; chronic anemia; ea - Immunization history:: Adult Immunizations up to date. - Coronavirus screen:: The patient has NOT traveled to [place] in the past 14 days. - Social history:: Smoking status: Patient denies any tobacco usage or history of. - Ebola Screening: : No symptoms or risks identified at this time. Screenin:15 Abuse screen: Denies threats or abuse. Nutritional screening: No deficits noted. ea Tuberculosis screening: No symptoms or risk factors identified. Fall Risk None identified. Assessment: 21:27 General: Appears in no apparent distress. Behavior is calm, cooperative, appropriate ea for age. Pain: Denies pain. Neuro: Level of Consciousness is awake, alert, obeys commands, Oriented to person, place, time, situation. GI: Abdomen is flat, non-distended. Derm: Skin is pink, warm \T\ dry. 22:05 Reassessment: Patient and/or family updated on plan of care and expected duration. Pain ea level reassessed. Patient is alert, oriented x 3, equal unlabored respirations, skin warm/dry/pink. 23:50 Reassessment: Patient and/or family updated on plan of care and expected duration. Pain ea level reassessed. Patient is alert, oriented x 3, equal unlabored respirations, skin warm/dry/pink. Discharge instruction given to family, verbalized the understanding of instruction. Pt left ED via wheelchair accompanied by family. Pt tolerating well. Vital Signs: 21:14 BP 161 / 75; Pulse 56; Resp 18; Temp 98.5; Pulse Ox 99% on R/A; Weight 49.9 kg; Height ea 5 ft. 10 in. (177.80 cm); 23:15 BP 158 / 68; Pulse 60; Resp 18; Pulse Ox 100% ; ea 21:14 Body Mass Index 15.78 (49.90 kg, 177.80 cm) ea ED Course: 21:09 Patient arrived in ED. ea 21:13 Octaviano Manriquez MD is Attending Physician. tw4 21:14 Triage completed. ea 21:17 Arm band placed on right wrist. Patient placed in an exam room, on a stretcher, on ea pulse oximetry. 21:17 Patient has correct armband on for positive identification. Bed in low position. Call ea light in reach. Side rails up X2. 21:27 Sarah Jasso, RN is Primary Nurse. ea 21:45 Initial lab(s) drawn, by me, sent to lab. Inserted saline lock: 20 gauge in right aa1 forearm, using aseptic technique. Blood collected. 23:30 IV discontinued, intact, bleeding controlled, No redness/swelling at site. Pressure ea dressing applied. 23:50 No provider procedures requiring assistance completed. ea Administered Medications: 21:47 Drug: Zofran 4 mg Route: IVP; Site: right forearm; aa1 22:45 Follow up: Response: No adverse reaction; Nausea is decreased aa1 23:45 Drug: Zofran 4 mg Route: PO; aa1 23:45 Follow up: Response: Medication administered at discharge. aa1 Outcome: 23:14 Discharge ordered by . tw4 23:51 Discharged to home via wheelchair, with family. ea 23:51 Condition: stable 23:51 Discharge instructions given to patient, Instructed on discharge instructions, follow up and referral plans. medication usage, Demonstrated understanding of instructions, follow-up care, medications, Prescriptions given X 3. 23:55 Patient left the ED. ea Signatures: Yvette Leal RN RN aa1 Sarah Jasso, RN RN Octaviano Holland MD MD tw4
[2019-10-24] MEDS ORDERED: ONDANSETRON 4 MG (ODT) TAB ONE (23:45)
[2019-10-25 02:07] VITALS: TEMP 98.5
[2019-10-25 02:36] VITALS: BP 158/68; O2SAT 100
== END 2019-10-24 23:55 | disposition home or self-care (01) ==
LOC: ER 21:00
DX: A08.39 Other viral enteritis (principal); Z88.6 Allergy status to analgesic agent; Z88.3 Allergy status to other anti-infective agents; I10 Essential (primary) hypertension; E11.9 Type 2 diabetes mellitus without complications; Z79.4 Long term (current) use of insulin; N28.9 Disorder of kidney and ureter, unspecified; I50.9 Heart failure, unspecified
CPT/HCPCS: 85025; 80048; 36415; 80076; 83690; 96374; 99284; J2405

== ENCOUNTER 2020-01-30 18:55 | Emergency (ER) | payer OTHER ==
--- OUTSIDE RECORDS SUMMARY | 2020-01-30 18:59 | XMS REPORT | Clinical Summary ---
:1950 Author Organization [facility] Address [address] [place] [address] Care Team Providers Name Role Phone Reid [...] daily. hydrALAZINE Take 25 mg by 0 Acti ve (APRESOLINE) 25 MG mouth 3 (three) tablet times a day. travoprost Administer 1 drop 0 A ctive (TRAVATAN-Z) 0.004 % to both eyes nightly. [...] Not on file Results Not on fileafter 01/29/2019 Insurance Payer Benefit Plan / Subscriber ID Effective Dates Phone Addre ss Type Group [employer] x[facility] Rhoda Lu Transplant Self 1950 [phone] [id number] (Home) [address] [place] [address] Advance Directives For more information, please contact: [phone] Type Date Recorded Patient Ordnance Handler Explanati on Advance Directives, Living Will and Medical Power of Health And Safety Representative
--- OUTSIDE RECORDS SUMMARY | 2020-01-30 19:01 | XMS REPORT | Clinical Summary ---
:1950 Author Organization [facility] Address [address] [place] [address] Care Team Providers Name Role Phone Pcp Primary Care Provider Unavailable Iftikhar Funez Unavailable Allergies Active Allergy Reactions Severity Noted Date Comments Diphenhydramine Hcl 02/04/2019 Codeine 01/16/2019 Delirium Meperidine 01/16/2019 Delirium Heparin Analogues 02/12/2019 Positive h eparin antibody; confirmatory SR A positive. dave Morphine 01/16/2019 Delirium Tetracyclines 01/16/2019 Medications Medication Sig Dispensed Refills Start Date End Date Status calcium acetate Take 667 mg by 0 Active (PHOSLO) 667 mg mouth 3 (three) capsule times daily with meals. metoprolol Take 1 tablet (50 0 02/14/2019 02/14/20 Active (LOPRESSOR) 50 MG mg total) by mouth 20 tablet 2 (two) times daily. aspirin 81 MG Take 1 tablet (81 0 02/15/2019 0 Active chewable tablet mg total) by mouth 20 daily. atorvastatin Take 1 tablet (40 0 02/14/2019 02/14/20 Active (LIPITOR) 40 MG mg total) by mouth 20 tablet nightly. epoetin rl-epbx Inject 1 mL (4,000 0 02/15/2019 Active (RETACRIT) 4,000 Units total) unit/mL Soln subcutaneously 3 injection (three) times a week at bedtime. famotidine Take 1 tablet (20 0 02/15/2019 Active (PEPCID) 20 MG mg total) by mouth tablet daily. lisinopril Take 40 mg by mouth 0 Active (PRINIVIL,ZESTRIL daily. ) 40 MG tabletIndications : hypertension traMADol (ULTRAM) Take 50 mg by mouth 0 Active 50 mg tablet every 6 (six) hours as needed for Pain. cloNIDine HCl Take 0.2 mg by 0 A ctive (CATAPRES) 0.2 MG mouth every 8 tabletIndications (eight) hours as : hypertension needed. doxazosin Take 2 mg by mouth 0 02/15/20 D iscontinued (CARDURA) 2 MG nightly. 19 tablet ramipril (ALTACE) Take 2.5 mg by 0 0 Discontinued 2.5 MG capsule mouth nightly. 19 metoprolol Take 25 mg by mouth 0 03/02/20 Discontinued (LOPRESSOR) 25 MG 2 (two) times 19 tablet daily. ramipril (ALTACE) Take 1 capsule (10 0 02/14/2019 Discontinued 10 MG capsule mg total) by mouth 19 daily. hydrOXYzine Take 1 tablet (25 30 tablet 0 02/14/2019 02/25/20 (ATARAX) 25 MG mg total) by mouth 19 tablet 3 (three) times daily as needed for Itching for up to 10 days. traMADol (ULTRAM) Take 1 tablet (50 30 tablet 0 02/14/2019 50 mg tablet mg total) by mouth 19 every 6 (six) hours as needed for up to 10 days. Max Daily Amount: 200 mg Active Problems Problem Noted Date CHF (congestive heart failure) 06/25/2019 Last Assessment & Plan: She has experienced cardiac arrest x 2 i n the last six months. She will require cardiology clearance prior to kidney tra nsplant. Pre-transplant evaluation for chronic kidney disease 1 Last Assessment & Plan: She is NOT an acceptable candidate for k idney transplant due to her cardiac status and impaired mobility. We will reassess her when she is able to ambulate without assistance. Pelvic hematoma, female 02/28/2019 Injury of multiple pelvic organs with open wound into cavity 02/28/2019 Wound dehiscence 02/27/2019 Last Assessment & Plan: She required an I&D s/p ORIF. Her wound has healed with no evidence of infection. Abdominal wall hematoma 02/12/2019 Diabetes mellitus 02/12/2019 Last Assessment & Plan: Diabetes management per primary care. Essential hypertension 02/12/2019 Last Assessment & Plan: Blood pressure management per cardiology or nephrology. Closed displaced fracture of anterior column of left a cetabulum, initial 01/22/2019 encounter Last Assessment & Plan: She has a history of falls and required a left ORIF in 2019. She will need to complete physical rehab prior to proceed with a kidney transplant (she arrived to kidney clinic evaluation a stretcher tod ay 06/25/2019). Closed displaced fracture of posterior column of aceta bulum, initial 01/22/2019 encounter Cardiac arrest 01/16/2019 ESRD on hemodialysis Last Assessment & Plan: End stage renal disease secondary to DM/ HTN. She has required dialysis since early 2018. Encounters Date Type Specialty Care Team Description 08/01/2019 Abstract Transplant Alfreda Castañeda 07/05/2019 Telephone Transplant Precious Landrum, RN 06/25/2019 Evaluation Transplant Sissy, ESRD on hemodia lysis (HCC) (Primary Dx); Gloria Grider MD Wound dehi scence; Essential hyper tension; Pre-transplant evaluation for chronic kidney disease; Closed displace d fracture of anterior column of left acetabulum, initial encounter (HCC) 06/22/2019 Telephone Transplant Ab Diaz ( call ed to confirm his mot her appt for and he's aware to check in at 10: 00 am to allow time f or registration. I emailed the add ress to fo r the appointment.) 06/04/2019 Telephone Transplant Ab Diaz (Pe r Mr. Vonda Lu the [employer] is runn ing late to black pickler his for the ap pt on today. Per Mr.B noyola the [address] is on t he way but sure of ETA for the appt. I checked with e clinic staff an d the surgeon please have the patient reschedule. Kayley angela is aware that t he next available Tuesday clinc is on 06.25.19 ) 06/01/2019 Telephone Transplant Lorraine Farley Appointment 04/30/2019 Abstract Transplant Alfreda Castañeda 04/12/2019 Documentation Transplant Alfreda Castañeda 04/12/2019 Abstract Transplant Alfreda Castañeda 04/06/2019 Telephone Transplant Juliet Dutta 04/05/2019 Abstract Transplant Alfreda Castañeda 04/05/2019 Abstract Transplant Castañeda, Alfreda 03/29/2019 Outside Orders Central System, Provider ESRD (end stage Scheduling Not In renal disease) ([facility]) (Primary Dx) 02/28/2019 Surgery Robert Lovell,WOUND T CARLOS Jefferson MD ANTERIOR 02/28/2019 Anesthesia Event José Elias MD 02/28/2019 Travel 02/27/2019 Hospital Encounter General Internal Hubert Kelly, Dehiscence of operative wound, initial encounter (Primary Dx); - Medicine Hypertension, uncontrolled; 03/02/2019 Asher Burrows Renal dis ease; MD Sarkis Type 2 diabetes mellitus with other spec ified complication, unspecified whether correction insulin use ([facility]); Spencer Amador, Abdominal wall hematoma, initial encounter; ESRD on hemodia lysis ([facility]); Essential hyper tension; Wound dehiscenc e 02/27/2019 Travel 01/16/2019 Hospital Encounter Cardiology Nelda Dean MD Cardiac arrest ([facility]); - Catherine Alonzo Respirato ry failure requiring intubation ([facility]); 02/14/2019 MD Sharif ESRD (end stage renal disease) ([facility]); Ayo Perez MD Acute respiratory failure with hypoxia ( [facility]); Carrie Portillo Acute encep halopathy; MD Tara Essential hypertension; Tyrel Boland ESRD on hemodialysis ([facility]); Charleen Olguin MD Non-rheumatic mitral regurgitation; Basilia, Nonrheumatic ao rtic valve stenosis; MD Charles Closed displaced fracture of anterior co lumn of left acetabulum, initial encounter ([facility]) Martínez Gruber MD after 01/29/2019 Family History Medical History Relation Name Comments Diabetes Father Hypertension Father Hypertension Mother No Known Problem Sister No Known Problem Son Relation Name Status Comments Father Alive Mother Alive Sister Alive Son Alive Social History Tobacco Use Types Packs/Day Years Used Date Former Smoker Cigarettes 01/16/1970 - 0 01/16/1971 Smokeless Tobacco: Never Used Comments: Patient intubated/sedated, thi s is from family Alcohol Use Drinks/Week oz/Week Comments No Alcohol Habits Answer Date Recorded How often do you have a drink containing alcohol? Never 02/28/2019 How many drinks containing alcohol do you have on a typical Not asked day when you are drinking? How often do you have six or more drinks on one occasion? No t asked Sex Assigned at Date Recorded Not on file Job Start Date Occupation Industry Not on file Not on file Not on file Travel History Travel Start Travel End No recent travel history available. Last Filed Vital Signs Vital Sign Reading Time Taken Blood Pressure 160/65 06/25/2019 11:06 AM CDT Pulse 72 06/25/2019 11:06 AM CDT Temperature 36.6 C (97.9 F) 06/25/2019 11:06 AM CDT Respiratory Rate 16 06/25/2019 11:06 AM CDT Oxygen Saturation 98% 03/02/2019 5:00 PM CDT Inhaled Oxygen Concentration 45% 02/09/2019 9:45 AM CDT Weight 50.8 kg (112 lb) 06/25/2019 11:06 AM CDT Height 167.6 cm (5' 6") 06/25/2019 11:06 AM CDT Body Mass Index 18.08 06/25/2019 11:06 AM CDT Plan of Treatment Health Maintenance Due Date Last Done Comments BREAST CANCER SCREENING 1950 COLON CANCER SCREENING ANNUAL FOBT 1950 PNEUMOCOCCAL 65+ HIGH/HIGHEST RISK (2 of 2 - PCV13) 11/07/2017 11/07/2016 HEMOGLOBIN A1C 07/19/2019 01/16/2019 MEDICARE ANNUAL WELLNESS (YEAR 2 or FIRST YEAR if no 09/19/2019 IPPE) INFLUENZA VACCINE (Season Ended) 2020 Implants Implanted Type Area Area Secretary Device Shelf Model / Identifier Expiration Serial / Date Lot Scr [address] 3.5x55mm Ss [id number] - [id number] IMPLANTS Left: NEYMAR :NEYMAR [id number] / Implanted: Qty: 1 on 01/22/2019 by Robert Lovell MD [employer] / Scr [address] 3.5x50mm Ss [id number] - [id number] IMPLANTS Left: NEYMAR :NEYMAR [id number] / Implanted: Qty: 2 on 01/22/2019 by Robert Lovell MD [employer] / Scr [address] 3.5x26mm Ss [id number] - [id number] IMPLANTS Left: NEYMAR :NEYMAR [id number] / Implanted: Qty: 1 on 01/22/2019 by Robert Lovell MD [employer] / Scr [address] 3.5x38mm Ss [id number] - [id number] IMPLANTS Left: NEYMAR :NEYMAR [id number] / Implanted: Qty: 1 on 01/22/2019 by Robert Lovell MD [employer] / Scr [address] 3.5x60mm Ss [id number] - [id number] IMPLANTS Left: NEYMAR :NEYMAR [id number] / Implanted: Qty: 1 on 01/22/2019 by Robert Lovell MD [employer] / Scr [address] 3.5x95mm Ss [id number] - [id number] IMPLANTS Left: NEYMAR :NEYMAR [id number] / Implanted: Qty: 1 on 01/22/2019 by Robert Lovell MD [employer] / Scr [address] 3.5x30mm Ss [id number] - [id number] IMPLANTS Left: NEYMAR :NEYMAR [id number] / Implanted: Qty: 1 on 01/22/2019 by Robert Lovell MD [employer] / Left Qls Plate Left: NEYMAR [id number] / Implanted: Qty: 1 on 01/22/2019 by Robert Lovell MD F [employer] / 3.5 X 45 Screw Left: NEYMAR [id number] / Implanted: Qty: 1 on 01/22/2019 by Robert Lovell MD F emur / Procedures Procedure Name Priority Date/Time Associated Diagnosis Comme nts VASCULAR DIAGRAM 04/19/2019 12:00 -SCAN PM CDT RHYTHM STRIP - SCAN 03/05/2019 1:51 PM CDT HEMOGLOBIN AND Routine 03/02/2019 10:09 Results f or this HEMATOCRIT AM CDT procedure are i n the results section. BASIC METABOLIC PANEL Routine 03/02/2019 4:26 Re sults for this (7) AM CDT procedure are i n the results section. XR PELVIS 1 OR 2 Routine 03/01/2019 11:18 Results for this VIEWS AM CDT procedure are i n the results section. HEMODIALYSIS Routine 03/01/2019 8:43 INPATIENT AM CDT CBC W/PLT COUNT & Routine 03/01/2019 5:33 Result s for this AUTO DIFFERENTIAL AM CDT procedure are in the results section. CBC W/PLT COUNT & Routine 03/01/2019 5:33 Result s for this AUTO DIFFERENTIAL AM CDT procedure are in the results section. BASIC METABOLIC PANEL Routine 03/01/2019 5:33 Re sults for this (7) AM CDT procedure are i n the results section. HEPATITIS B SURFACE Routine 03/01/2019 5:33 Resu lts for this ANTIGEN AM CDT procedure are i n the results section. SURGICALLY OBTAINED Routine 02/28/2019 8:46 Resu lts for this CULTURE + GRAM STAIN AM CDT procedu re are in the results section. FUNGUS CULTURE + Routine 02/28/2019 8:46 Results for this SMEAR AM CDT procedure are i n the results section. ANAEROBIC CULTURE Routine 02/28/2019 8:46 Result s for this AM CDT procedure are i n the results section. AFB CULTURE + SMEAR Routine 02/28/2019 8:46 Resu lts for this (NON-SPUTUM) AM CDT procedure are i n the results section. SPIN/CONCENTRATION Routine 02/28/2019 8:46 Resul ts for this CHARGE AM CDT procedure are i n the results section. I&D,ABSCESS PELVIS/ 02/28/2019 8:00 Closed displaced HIP AM CDT fracture of anterior column of left acetabulum, initial encounter (HCC) Closed displaced fracture of posterior column of acetabulum, unspecified laterality, initial encounter (HCC) Case Notes 1 HR Special Needs (REQUESTING 8:00 AM, NEYMAR , PATIENT IS IN A FPC) CLOSURE,WOUND TORSO ANTERIOR 02/28/2019 8:00 AM CDT Closed displaced fracture of anterior column of left acetabulum, initial encounter (HCC) Closed displaced fracture of posterior column of acetabulum, unspecified laterality, initial encounter (HCC) Case Notes 1 HR Special Needs (REQUESTING 8:00 AM, NEYMAR , PATIENT IS IN A [facility]PC) BASIC METABOLIC PANEL (7) Routine 02/28/2019 3:59 AM CDT Results for this procedure are i n the results section . CBC W/PLT COUNT & AUTO STAT 02/27/2019 11:10 PM CDT Results for this DIFFERENTIAL procedure are i n the results section . CBC W/PLT COUNT & AUTO STAT 02/27/2019 11:10 PM CDT Results for this DIFFERENTIAL procedure are i n the results section . BASIC METABOLIC PANEL (7) STAT 02/27/2019 11:10 PM CDT Results for this procedure are i n the results section . RHYTHM STRIP - SCAN 02/16/2019 2:53 PM CDT RHYTHM STRIP - SCAN 02/15/2019 11:30 AM CDT RHYTHM STRIP - SCAN 02/15/2019 11:30 AM CDT RHYTHM STRIP - SCAN 02/15/2019 11:30 AM CDT CARDIAC CATH REPORT - SCAN 02/15/2019 11:30 AM CDT RHYTHM STRIP - SCAN 02/15/2019 11:30 AM CDT POCT-GLUCOSE METER Routine 02/14/2019 12:07 PM CDT Results for this procedure are i n the results section . CBC W/PLT COUNT & AUTO Routine 02/14/2019 4:39 AM CDT Results for this DIFFERENTIAL procedure are i n the results section . CBC W/PLT COUNT & AUTO Routine 02/14/2019 4:39 AM CDT Results for this DIFFERENTIAL procedure are i n the results section . PHOSPHORUS Routine 02/14/2019 3:41 AM CDT Resu lts for this procedure are i n the results section . MAGNESIUM Routine 02/14/2019 3:41 AM CDT Resu lts for this procedure are i n the results section . CALCIUM, IONIZED Routine 02/14/2019 3:41 AM CDT Results for this procedure are i n the results section . BASIC METABOLIC PANEL (7) Routine 02/14/2019 3:41 AM CDT Results for this procedure are i n the results section . POCT-GLUCOSE METER Routine 02/13/2019 9:40 PM CDT Results for this procedure are i n the results section . POCT-GLUCOSE METER Routine 02/13/2019 6:18 PM CDT Results for this procedure are i n the results section . POCT-GLUCOSE METER Routine 02/13/2019 1:12 PM CDT Results for this procedure are i n the results section . POCT-GLUCOSE METER Routine 02/13/2019 7:57 AM CDT Results for this procedure are i n the results section . CBC W/PLT COUNT & AUTO Routine 02/13/2019 6:12 AM CDT Results for this DIFFERENTIAL procedure are i n the results section . MAGNESIUM Routine 02/13/2019 6:12 AM CDT Resu lts for this procedure are i n the results section . CBC W/PLT COUNT & AUTO Routine 02/13/2019 6:12 AM CDT Results for this DIFFERENTIAL procedure are i n the results section . PHOSPHORUS Routine 02/13/2019 6:12 AM CDT Resu lts for this procedure are i n the results section . CALCIUM, IONIZED Routine 02/13/2019 6:12 AM CDT Results for this procedure are i n the results section . BASIC METABOLIC PANEL (7) Routine 02/13/2019 6:12 AM CDT Results for this procedure are i n the results section . HEMODIALYSIS INPATIENT Routine 02/12/2019 9:10 PM CDT Results for this procedure are i n the results section . TRANSFUSION SERVICE REPORT - 02/12/2019 5:50 PM CDT SCAN POCT-GLUCOSE METER Routine 02/12/2019 1:32 PM CDT Results for this procedure are i n the results section . POCT-GLUCOSE METER Routine 02/12/2019 8:40 AM CDT Results for this procedure are i n the results section . CBC W/PLT COUNT & AUTO Routine 02/12/2019 4:34 AM CDT Results for this DIFFERENTIAL procedure are i n the results section . SEROTONIN RELEASE ASSAY Routine 02/12/2019 4:34 AM CDT Results for this procedure are i n the results section . PLATELET AGGREGATION: Routine 02/12/2019 4:34 AM CDT Results for this FUNCTION SCREEN procedure ar e in the results section . HEPARIN ANTIBODY Routine 02/12/2019 4:34 AM CDT Results for this procedure are i n the results section . APTT Routine 02/12/2019 4:34 AM CDT Resu lts for this procedure are i n the results section . PHOSPHORUS Routine 02/12/2019 4:34 AM CDT Resu lts for this procedure are i n the results section . MAGNESIUM Routine 02/12/2019 4:34 AM CDT Resu lts for this procedure are i n the results section . COMPREHENSIVE METABOLIC PANEL Routine 02/12/2019 4:34 AM CDT Results for this procedure are i n the results section . CBC W/PLT COUNT & AUTO Routine 02/12/2019 4:34 AM CDT Results for this DIFFERENTIAL procedure are i n the results section . PREPARE LEUKO-REDUCED RBC Routine 02/11/2019 11:54 PM CDT Results for this procedure are i n the results section . POCT-GLUCOSE METER Routine 02/11/2019 9:05 PM CDT Results for this procedure are i n the results section . TRANSFUSION SERVICE REPORT - 02/11/2019 5:50 PM CDT SCAN POCT-GLUCOSE METER Routine 02/11/2019 4:34 PM CDT Results for this procedure are i n the results section . POCT-GLUCOSE METER Routine 02/11/2019 12:22 PM CDT Results for this procedure are i n the results section . POCT-GLUCOSE METER Routine 02/11/2019 8:20 AM CDT Results for this procedure are i n the results section . CBC W/PLT COUNT & AUTO Routine 02/11/2019 5:24 AM CDT Results for this DIFFERENTIAL procedure are i n the results section . PHOSPHORUS Routine 02/11/2019 5:24 AM CDT Resu lts for this procedure are i n the results section . MAGNESIUM Routine 02/11/2019 5:24 AM CDT Resu lts for this procedure are i n the results section . COMPREHENSIVE METABOLIC PANEL Routine 02/11/2019 5:24 AM CDT Results for this procedure are i n the results section . CBC W/PLT COUNT & AUTO Routine 02/11/2019 5:24 AM CDT Results for this DIFFERENTIAL procedure are i n the results section . POCT-GLUCOSE METER Routine 02/10/2019 9:07 PM CDT Results for this procedure are i n the results section . POCT-GLUCOSE METER Routine 02/10/2019 5:51 PM CDT Results for this procedure are i n the results section . CT ABDOMEN/PELVIS WITH IV Routine 02/10/2019 3:06 PM CDT Results for this CONTRAST procedure are i n the results section . HEMODIALYSIS INPATIENT Routine 02/10/2019 12:36 PM CDT Results for this procedure are i n the results section . PREPARE LEUKO-REDUCED RBC Routine 02/10/2019 11:42 AM CDT Results for this procedure are i n the results section . TRANSFUSE LEUKO-REDUCED RED Routine 02/10/2019 11:37 AM CDT BLOOD CELLS TYPE AND SCREEN, AUTOMATED Routine 02/10/2019 5:46 AM CDT Results for this procedure are i n the results section . CBC W/PLT COUNT & AUTO Routine 02/10/2019 4:04 AM CDT Results for this DIFFERENTIAL procedure are i n the results section . PHOSPHORUS Routine 02/10/2019 4:04 AM CDT Resu lts for this procedure are i n the results section . MAGNESIUM Routine 02/10/2019 4:04 AM CDT Resu lts for this procedure are i n the results section . COMPREHENSIVE METABOLIC PANEL Routine 02/10/2019 4:04 AM CDT Results for this procedure are i n the results section . CBC W/PLT COUNT & AUTO Routine 02/10/2019 4:04 AM CDT Results for this DIFFERENTIAL procedure are i n the results section . POCT-GLUCOSE METER Routine 02/09/2019 9:20 PM CDT Results for this procedure are i n the results section . POCT-GLUCOSE METER Routine 02/09/2019 5:30 PM CDT Results for this procedure are i n the results section . POCT-GLUCOSE METER Routine 02/09/2019 12:20 PM CDT Results for this procedure are i n the results section . HEMODIALYSIS INPATIENT Routine 02/09/2019 11:15 AM CDT POCT-GLUCOSE METER Routine 02/09/2019 7:12 AM CDT Results for this procedure are i n the results section . CBC W/PLT COUNT & AUTO Routine 02/09/2019 2:53 AM CDT Results for this DIFFERENTIAL procedure are i n the results section . CALCIUM, IONIZED Routine 02/09/2019 2:53 AM CDT Results for this procedure are i n the results section . B-TYPE NATRIURETIC FACTOR Routine 02/09/2019 2:53 AM CDT Results for this (BNP) procedure are i n the results section . PHOSPHORUS Routine 02/09/2019 2:53 AM CDT Resu lts for this procedure are i n the results section . MAGNESIUM Routine 02/09/2019 2:53 AM CDT Resu lts for this procedure are i n the results section . COMPREHENSIVE METABOLIC PANEL Routine 02/09/2019 2:53 AM CDT Results for this procedure are i n the results section . CBC W/PLT COUNT & AUTO Routine 02/09/2019 2:53 AM CDT Results for this DIFFERENTIAL procedure are i n the results section . POCT-GLUCOSE METER Routine 02/08/2019 9:18 PM CDT Results for this procedure are i n the results section . POCT-GLUCOSE METER Routine 02/08/2019 1:44 PM CDT Results for this procedure are i n the results section . POCT-GLUCOSE METER Routine 02/08/2019 7:09 AM CDT Results for this procedure are i n the results section . CBC W/PLT COUNT & AUTO Routine 02/08/2019 4:13 AM CDT Results for this DIFFERENTIAL procedure are i n the results section . PHOSPHORUS Routine 02/08/2019 4:13 AM CDT Resu lts for this procedure are i n the results section . MAGNESIUM Routine 02/08/2019 4:13 AM CDT Resu lts for this procedure are i n the results section . COMPREHENSIVE METABOLIC PANEL Routine 02/08/2019 4:13 AM CDT Results for this procedure are i n the results section . CBC W/PLT COUNT & AUTO Routine 02/08/2019 4:13 AM CDT Results for this DIFFERENTIAL procedure are i n the results section . POCT-GLUCOSE METER Routine 02/07/2019 7:16 PM CDT Results for this procedure are i n the results section . HEMODIALYSIS INPATIENT Routine 02/07/2019 4:20 PM CDT HEMOGLOBIN AND HEMATOCRIT Routine 02/07/2019 1:13 PM CDT Results for this procedure are i n the results section . POCT-GLUCOSE METER Routine 02/07/2019 8:22 AM CDT Results for this procedure are i n the results section . CBC W/PLT COUNT & AUTO Routine 02/07/2019 4:55 AM CDT Results for this DIFFERENTIAL procedure are i n the results section . PHOSPHORUS Routine 02/07/2019 4:55 AM CDT Resu lts for this procedure are i n the results section . MAGNESIUM Routine 02/07/2019 4:55 AM CDT Resu lts for this procedure are i n the results section . COMPREHENSIVE METABOLIC PANEL Routine 02/07/2019 4:55 AM CDT Results for this procedure are i n the results section . CBC W/PLT COUNT & AUTO Routine 02/07/2019 4:55 AM CDT Results for this DIFFERENTIAL procedure are i n the results section . PROTEIN, RANDOM URINE Routine 02/07/2019 4:06 AM CDT Results for this procedure are i n the results section . CREATININE, RANDOM URINE Routine 02/07/2019 4:06 AM CDT Results for this procedure are i n the results section . POCT-GLUCOSE METER Routine 02/06/2019 8:51 PM CDT Results for this procedure are i n the results section . TRANSFUSION SERVICE REPORT - 02/06/2019 5:57 PM CDT SCAN HEMODIALYSIS INPATIENT Routine 02/06/2019 4:43 PM CDT HEMOGLOBIN AND HEMATOCRIT Routine 02/06/2019 2:22 PM CDT Results for this procedure are i n the results section . POCT-GLUCOSE METER Routine 02/06/2019 2:03 PM CDT Results for this procedure are i n the results section . URINALYSIS W/ MICROSCOPIC Routine 02/06/2019 9:52 AM CDT Results for this procedure are i n the results section . POCT-GLUCOSE METER Routine 02/06/2019 8:26 AM CDT Results for this procedure are i n the results section . XR CHEST 1 VIEW Routine 02/06/2019 6:55 AM CDT R esults for this PORTABLE/BEDSIDE procedure a re in the results section . CBC W/PLT COUNT & AUTO Routine 02/06/2019 5:17 AM CDT Results for this DIFFERENTIAL procedure are i n the results section . CALCIUM, IONIZED Routine 02/06/2019 5:17 AM CDT Results for this procedure are i n the results section . PHOSPHORUS Routine 02/06/2019 5:17 AM CDT Resu lts for this procedure are i n the results section . MAGNESIUM Routine 02/06/2019 5:17 AM CDT Resu lts for this procedure are i n the results section . COMPREHENSIVE METABOLIC PANEL Routine 02/06/2019 5:17 AM CDT Results for this procedure are i n the results section . CBC W/PLT COUNT & AUTO Routine 02/06/2019 5:17 AM CDT Results for this DIFFERENTIAL procedure are i n the results section . PREPARE LEUKO-REDUCED RBC Routine 02/05/2019 11:54 PM CDT Results for this procedure are i n the results section . BLOOD CULTURE Routine 02/05/2019 11:35 PM CDT Res ults for this procedure are i n the results section . BLOOD CULTURE Routine 02/05/2019 11:35 PM CDT Res ults for this procedure are i n the results section . POCT-GLUCOSE METER Routine 02/05/2019 8:49 PM CDT Results for this procedure are i n the results section . HEMODIALYSIS INPATIENT Routine 02/05/2019 7:45 PM CDT Results for this procedure are i n the results section . TRANSFUSION SERVICE REPORT - 02/05/2019 5:40 PM CDT SCAN POCT-GLUCOSE METER Routine 02/05/2019 11:42 AM CDT Results for this procedure are i n the results section . POCT-GLUCOSE METER Routine 02/05/2019 7:20 AM CDT Results for this procedure are i n the results section . XR CHEST 1 VIEW Routine 02/05/2019 6:56 AM CDT R esults for this PORTABLE/BEDSIDE procedure a re in the results section . PHOSPHORUS Routine 02/05/2019 5:24 AM CDT Resu lts for this procedure are i n the results section . MAGNESIUM Routine 02/05/2019 5:24 AM CDT Resu lts for this procedure are i n the results section . COMPREHENSIVE METABOLIC PANEL Routine 02/05/2019 5:24 AM CDT Results for this procedure are i n the results section . CBC W/PLT COUNT & AUTO Routine 02/05/2019 5:23 AM CDT Results for this DIFFERENTIAL procedure are i n the results section . CBC W/PLT COUNT & AUTO Routine 02/05/2019 5:23 AM CDT Results for this DIFFERENTIAL procedure are i n the results section . HEMOGLOBIN AND HEMATOCRIT Routine 02/05/2019 5:23 AM CDT Results for this procedure are i n the results section . POCT-GLUCOSE METER Routine 02/04/2019 9:05 PM CDT Results for this procedure are i n the results section . TRANSFUSE LEUKO-REDUCED RED Routine 02/04/2019 7:33 PM CDT BLOOD CELLS TRANSFUSION SERVICE REPORT - 02/04/2019 5:40 PM CDT SCAN POCT-GLUCOSE METER Routine 02/04/2019 5:11 PM CDT Results for this procedure are i n the results section . TYPE AND SCREEN, AUTOMATED Routine 02/04/2019 12:09 PM CDT Results for this procedure are i n the results section . POCT-GLUCOSE METER Routine 02/04/2019 11:49 AM CDT Results for this procedure are i n the results section . POCT-GLUCOSE METER Routine 02/04/2019 8:02 AM CDT Results for this procedure are i n the results section . CBC W/PLT COUNT & AUTO Routine 02/04/2019 6:34 AM CDT Results for this DIFFERENTIAL procedure are i n the results section . CBC W/PLT COUNT & AUTO Routine 02/04/2019 6:34 AM CDT Results for this DIFFERENTIAL procedure are i n the results section . XR CHEST 1 VIEW Routine 02/04/2019 4:24 AM CDT R esults for this PORTABLE/BEDSIDE procedure a re in the results section . CBC W/PLT COUNT & AUTO Routine 02/04/2019 4:11 AM CDT Results for this DIFFERENTIAL procedure are i n the results section . PHOSPHORUS Routine 02/04/2019 4:11 AM CDT Resu lts for this procedure are i n the results section . CBC W/PLT COUNT & AUTO Routine 02/04/2019 4:11 AM CDT Results for this DIFFERENTIAL procedure are i n the results section . MAGNESIUM Routine 02/04/2019 4:11 AM CDT Resu lts for this procedure are i n the results section . COMPREHENSIVE METABOLIC PANEL Routine 02/04/2019 4:11 AM CDT Results for this procedure are i n the results section . PREPARE LEUKO-REDUCED RBC Routine 02/03/2019 11:54 PM CDT Results for this procedure are i n the results section . POCT-GLUCOSE METER Routine 02/03/2019 9:19 PM CDT Results for this procedure are i n the results section . TRANSFUSION SERVICE REPORT - 02/03/2019 5:40 PM CDT SCAN HEMODIALYSIS INPATIENT Routine 02/03/2019 3:30 PM CDT POCT-GLUCOSE METER Routine 02/03/2019 11:29 AM CDT Results for this procedure are i n the results section . CBC W/PLT COUNT & AUTO Routine 02/03/2019 9:11 AM CDT Results for this DIFFERENTIAL procedure are i n the results section . CBC W/PLT COUNT & AUTO Routine 02/03/2019 9:11 AM CDT Results for this DIFFERENTIAL procedure are i n the results section . XR CHEST 1 VIEW Routine 02/03/2019 5:56 AM CDT R esults for this PORTABLE/BEDSIDE procedure a re in the results section . CBC W/PLT COUNT & AUTO Routine 02/03/2019 5:30 AM CDT Results for this DIFFERENTIAL procedure are i n the results section . B-TYPE NATRIURETIC FACTOR Routine 02/03/2019 5:30 AM CDT Results for this (BNP) procedure are i n the results section . CALCIUM, IONIZED Routine 02/03/2019 5:30 AM CDT Results for this procedure are i n the results section . CBC W/PLT COUNT & AUTO Routine 02/03/2019 5:30 AM CDT Results for this DIFFERENTIAL procedure are i n the results section . PHOSPHORUS Routine 02/03/2019 5:30 AM CDT Resu lts for this procedure are i n the results section . MAGNESIUM Routine 02/03/2019 5:30 AM CDT Resu lts for this procedure are i n the results section . COMPREHENSIVE METABOLIC PANEL Routine 02/03/2019 5:30 AM CDT Results for this procedure are i n the results section . ECHOCARDIOGRAM REPORT - SCAN 02/02/2019 9:21 PM CDT POCT-GLUCOSE METER Routine 02/02/2019 9:17 PM CDT Results for this procedure are i n the results section . TRANSFUSION REACTION STAT 02/02/2019 1:36 PM CDT Results for this INVESTIGATION procedure are in the results section . TRANSFUSE LEUKO-REDUCED RED Routine 02/02/2019 1:21 PM CDT BLOOD CELLS POCT-GLUCOSE METER Routine 02/02/2019 12:38 PM CDT Results for this procedure are i n the results section . POCT-GLUCOSE METER Routine 02/02/2019 8:44 AM CDT Results for this procedure are i n the results section . TYPE AND SCREEN, AUTOMATED Routine 02/02/2019 8:36 AM CDT Results for this procedure are i n the results section . XR CHEST 1 VIEW Routine 02/02/2019 7:43 AM CDT R esults for this PORTABLE/BEDSIDE procedure a re in the results section . CBC W/PLT COUNT & AUTO Routine 02/02/2019 5:43 AM CDT Results for this DIFFERENTIAL procedure are i n the results section . COMPREHENSIVE METABOLIC PANEL Routine 02/02/2019 5:43 AM CDT Results for this procedure are i n the results section . CBC W/PLT COUNT & AUTO Routine 02/02/2019 5:43 AM CDT Results for this DIFFERENTIAL procedure are i n the results section . CALCIUM, IONIZED Routine 02/02/2019 5:43 AM CDT Results for this procedure are i n the results section . CALCIUM, IONIZED Routine 02/02/2019 5:43 AM CDT Results for this procedure are i n the results section . PHOSPHORUS Routine 02/02/2019 5:43 AM CDT Resu lts for this procedure are i n the results section . MAGNESIUM Routine 02/02/2019 5:43 AM CDT Resu lts for this procedure are i n the results section . POCT-GLUCOSE METER Routine 02/01/2019 9:06 PM CDT Results for this procedure are i n the results section . POCT-GLUCOSE METER Routine 02/01/2019 5:28 PM CDT Results for this procedure are i n the results section . TRANSESOPHAGEAL ECHO Routine 02/01/2019 2:33 PM CDT Results for this procedure are i n the results section . POCT-GLUCOSE METER Routine 02/01/2019 12:15 PM CDT Results for this procedure are i n the results section . CONT WAVE PULSED DOPPLER Routine 02/01/2019 12:10 PM CDT COLOR-FLOW MAPPING Routine 02/01/2019 12:10 PM CDT HEMODIALYSIS INPATIENT Routine 02/01/2019 10:28 AM CDT POCT-GLUCOSE METER Routine 02/01/2019 10:22 AM CDT Results for this procedure are i n the results section . CBC W/PLT COUNT & AUTO Routine 02/01/2019 9:52 AM CDT Results for this DIFFERENTIAL procedure are i n the results section . CBC W/PLT COUNT & AUTO Routine 02/01/2019 9:52 AM CDT Results for this DIFFERENTIAL procedure are i n the results section . XR CHEST 1 VIEW Routine 02/01/2019 8:02 AM CDT R esults for this PORTABLE/BEDSIDE procedure a re in the results section . POCT-GLUCOSE METER Routine 02/01/2019 7:08 AM CDT Results for this procedure are i n the results section . POCT-GLUCOSE METER Routine 01/31/2019 9:00 PM CDT Results for this procedure are i n the results section . XR CHEST 1 VIEW Routine 01/31/2019 7:20 AM CDT R esults for this PORTABLE/BEDSIDE procedure a re in the results section . CBC W/PLT COUNT & AUTO Routine 01/31/2019 4:50 AM CDT Results for this DIFFERENTIAL procedure are i n the results section . CALCIUM, IONIZED Routine 01/31/2019 4:50 AM CDT Results for this procedure are i n the results section . PHOSPHORUS Routine 01/31/2019 4:50 AM CDT Resu lts for this procedure are i n the results section . MAGNESIUM Routine 01/31/2019 4:50 AM CDT Resu lts for this procedure are i n the results section . COMPREHENSIVE METABOLIC PANEL Routine 01/31/2019 4:50 AM CDT Results for this procedure are i n the results section . CBC W/PLT COUNT & AUTO Routine 01/31/2019 4:50 AM CDT Results for this DIFFERENTIAL procedure are i n the results section . POCT-GLUCOSE METER Routine 01/30/2019 9:34 PM CDT Results for this procedure are i n the results section . POCT-GLUCOSE METER Routine 01/30/2019 6:10 PM CDT Results for this procedure are i n the results section . HEMODIALYSIS INPATIENT Routine 01/30/2019 5:16 PM CDT Results for this procedure are i n the results section . XR CHEST 1 VIEW Routine 01/30/2019 6:51 AM CDT R esults for this PORTABLE/BEDSIDE procedure a re in the results section . CBC W/PLT COUNT & AUTO Routine 01/30/2019 4:19 AM CDT Results for this DIFFERENTIAL procedure are i n the results section . RETICULOCYTE COUNT Routine 01/30/2019 4:19 AM CDT Results for this procedure are i n the results section . FERRITIN Routine 01/30/2019 4:19 AM CDT Resu lts for this procedure are i n the results section . IRON, TIBC, % SAT. (WITHOUT Routine 01/30/2019 4:19 AM CDT Results for this FERRITIN) procedure are i n the results section . CALCIUM, IONIZED Routine 01/30/2019 4:19 AM CDT Results for this procedure are i n the results section . PHOSPHORUS Routine 01/30/2019 4:19 AM CDT Resu lts for this procedure are i n the results section . MAGNESIUM Routine 01/30/2019 4:19 AM CDT Resu lts for this procedure are i n the results section . COMPREHENSIVE METABOLIC PANEL Routine 01/30/2019 4:19 AM CDT Results for this procedure are i n the results section . CBC W/PLT COUNT & AUTO Routine 01/30/2019 4:19 AM CDT Results for this DIFFERENTIAL procedure are i n the results section . POCT-GLUCOSE METER Routine 01/29/2019 9:31 PM CDT Results for this procedure are i n the results section . POCT-GLUCOSE METER Routine 01/29/2019 5:39 PM CDT Results for this procedure are i n the results section . POCT-GLUCOSE METER Routine 01/29/2019 1:04 PM CDT Results for this procedure are i n the results section . XR CHEST 1 VIEW Routine 01/29/2019 7:41 AM CDT R esults for this PORTABLE/BEDSIDE procedure a re in the results section . POCT-GLUCOSE METER Routine 01/29/2019 7:39 AM CDT Results for this procedure are i n the results section . CBC W/PLT COUNT & AUTO Routine 01/29/2019 4:53 AM CDT Results for this DIFFERENTIAL procedure are i n the results section . PHOSPHORUS Routine 01/29/2019 4:53 AM CDT Resu lts for this procedure are i n the results section . MAGNESIUM Routine 01/29/2019 4:53 AM CDT Resu lts for this procedure are i n the results section . COMPREHENSIVE METABOLIC PANEL Routine 01/29/2019 4:53 AM CDT Results for this procedure are i n the results section . CBC W/PLT COUNT & AUTO Routine 01/29/2019 4:53 AM CDT Results for this DIFFERENTIAL procedure are i n the results section . after 01/29/2019 Results VASCULAR DIAGRAM -SCAN (04/19/2019 12:00 PM CDT) Narrative Performed At This result has an attachment that is no t available. RHYTHM STRIP - SCAN (03/05/2019 1:51 PM CDT)Only the most recent of6 results within the time period is included. Narrative Performed At This result has an attachment that is no t available. Hemoglobin and hematocrit (03/02/2019 10:09 AM CDT)Only the most recent of4 resultswithin the time period is included. Hemoglobin 7.6 (L) 11.2 - 15.7 GM/DL [facility] Hematocrit 24.9 (L) 34.1 - 44.9 % [facility] Specimen Blood Performing Organization Address City/State/Zipcode Phone Number [facility] [address] [place] [address] CENTER Basic metabolic panel (03/02/2019 4:26 AM CDT)Only the most recent of6 results within the time period is included. Sodium 139 136 - 145 meq/L [facility] Potassium 4.9 3.5 - 5.1 meq/L [facility] Chloride 106 98 - 107 meq/L [facility] CO2 29 22 - 29 meq/L [facility] BUN 22 (H) 7 - 21 mg/dL [facility] Creatinine 2.59 (H) 0.57 - 1.25 mg/dL [facility] Glucose 94 70 - 105 mg/dL [facility] Calcium 8.8 8.4 - 10.2 mg/dL [facility] EGFR 22Comment: ESTIMATED GFR IS mL/min/1.73 sq m [facility] NOT ACCURATE CREATININE [facility] CLEARANCE IN PREDICTING GLOMERULAR FILTRATION RATE. ESTIMATED GFR IS NOT APPLICABLE FOR DIALYSIS PATIENTS. Specimen Blood Performing Organization Address City/State/Zipcode Phone Number [address] [address] CENTER XR pelvis 1 or 2 views (03/01/2019 11:18 AM CDT) Specimen Narrative Performed At FINAL REPORT [employer] CLINICAL HISTORY: follow up for pelvis O RIF TECHNIQUE: AP pelvis COMPARISON: Abdominal CT 02/10/2019 IMPRESSION: Left pelvic sidewall plate and screw fix ation is again seen. An acute fracture line is not definitively seen, although generalized osteopenia and overlying bowel gas may o bscure subtle fractures. Soft tissue fullness along the left pelvic si dewall is compatible with a hematoma seen on the CT. There is a pelv ic surgical drain in place. Signed: Carlee Lindo MD Report Verified Date/Time:03/01/2019 11:58:06 Reading Location: [facility] [facility] Procedure Note Interface, External Ris In - 03/01/2019 12:00 PM CDT FINAL REPORT CLINICAL HISTORY: follow up for pelvis O RIF TECHNIQUE: AP pelvis COMPARISON: Abdominal CT 02/10/2019 IMPRESSION: Left pelvic sidewall plate and screw fix ation is again seen. An acute fracture line is not definitively seen, although generalized osteopenia and overlying bowel gas may o bscure subtle fractures. Soft tissue fullness along the left pelvic si dewall is compatible with a hematoma seen on the CT. There is a pelv ic surgical drain in place. Signed: Carlee Lindo MD Report Verified Date/Time: 03/01/2019 1 1:58:06 Reading Location: [place] [facility] Reading [facility] Performing Organization Address City/State/Zipcode Phone Number [facility] CBC with platelet count + automated diff (03/01/2019 5:33 AM CDT)Only the most recent of21 resultswithin the time period is included. WBC 7.4 3.5 - 10.5 K/L [facility] RBC 2.74 (L) 3.93 - 5.22 M/L [facility] Hemoglobin 8.4 (L) 11.2 - 15.7 GM/DL [facility] Hematocrit 27.0 (L) 34.1 - 44.9 % [facility] MCV 98.5 (H) 79.4 - 94.8 fL [facility] MCH 30.7 25.6 - 32.2 pg [facility] MCHC 31.1 (L) 32.2 - 35.5 GM/DL [facility] RDW 16.6 (H) 11.7 - 14.4 % [facility] Platelets 214 150 - 450 K/CU MM [facility] MPV 10.7 9.4 - 12.3 fL [facility] nRBC 0 0 - 0 /100 WBC [facility] % Neutros 75 % [facility] % Lymphs 11 % [facility] % Monos 9 % [facility] % Eos 5 % [facility] % Baso 1 % [facility] # Neutros 5.56 1.56 - 6.13 K/L [facility] # Lymphs 0.83 (L) 1.18 - 3.74 K/L [facility] # Monos 0.63 (H) 0.24 - 0.36 K/L [facility] # Eos 0.35 0.04 - 0.36 K/L [facility] # Baso 0.04 0.01 - 0.08 K/L [facility] Immature Granulocytes-Relative 0 0 - 1 % [facility] Specimen Blood Performing Organization Address City/[facility]/Zipcode Phone Number [address] [address] CENTER Hepatitis B surface antigen (03/01/2019 5:33 AM CDT) HBsAg Screen Nonreactive Nonreactive [facility] Specimen Blood Performing Organization Address City/[facility]/Zipcode Phone Number [address] [address] CENTER AFB culture + smear (02/28/2019 8:46 AM CDT) Result No acid-fast bacilli isolated in [facility] 42 days CENTER AFB Smear No acid fast bacilli seen [facility] Specimen Wound Performing Organization Address City/[facility]/Zipcode Phone Number [address] [address] CENTER Anaerobic culture (02/28/2019 8:46 AM CDT) Result No anaerobes isolated [facility] Specimen Wound Performing Organization Address City/[facility]/Zipcode Phone Number [address] [address] CENTER Surgically obtained culture + gram stain (02/28/2019 8:46 AM CDT) Result 1+ Escherichia coli (A) [facility] Result <1+ Enterobacter cloacae [facility] complex (A)Comment: [facility] Positive Result 4+ Enterococcus species (A) [facility] Gram Stain Result <1+ WBCs [facility] Gram Stain Result No organisms seen [facility] Specimen Wound Organism Antibiotic Method Susceptibility Escherichia coli Amikacin <=2: Susceptibl e Escherichia coli Ampicillin + Sulbactam 4: Susce ptible Escherichia coli Aztreonam <=1: Susceptibl e Escherichia coli Cefepime <=1: Susceptibl e Escherichia coli Cefoxitin 8: Susceptible Escherichia coli Ceftazidime <=1: Susceptibl e Escherichia coli Ceftriaxone <=1: Susceptibl e Escherichia coli Ertapenem <=0.5: Suscepti ble Escherichia coli Gentamicin <=1: Susceptibl e Escherichia coli Levofloxacin <=0.12: Suscept ible Escherichia coli Meropenem <=0.25: Suscept ible Escherichia coli Piperacillin + Tazobactam <=4: Susceptible Escherichia coli Tetracycline <=1: Susceptibl e Escherichia coli Tobramycin <=1: Susceptibl e Escherichia coli Trimethoprim + Sulfamethoxazole <=20: Susceptible Enterobacter cloacae Amikacin <=2: Suscep tible complex Enterobacter cloacae Aztreonam >=64: Resis tant complex Enterobacter cloacae Cefepime Resistant complex Enterobacter cloacae Cefoxitin >=64: Resis tant complex Enterobacter cloacae Ceftazidime >=64: Resis tant complex Enterobacter cloacae Ceftriaxone >=64: Resis tant complex Enterobacter cloacae Gentamicin <=1: Suscep tible complex Enterobacter cloacae Levofloxacin <=0.12: Lindsay ceptible complex Enterobacter cloacae Meropenem Resistant complex Enterobacter cloacae Piperacillin + Tazobactam > =128: Resistant complex Enterobacter cloacae Tetracycline 2: Suscepti ble complex Enterobacter cloacae Tobramycin <=1: Suscep tible complex Enterobacter cloacae Trimethoprim + Sulfamethoxazole <=20: Susceptible complex Enterococcus species Ampicillin <=2: Suscep tible Enterococcus species Linezolid 2: Suscepti ble Enterococcus species Vancomycin <=0.5: Susc eptible Performing Organization Address City/State/Zipcode Phone Number [facility] [address] [place] [address] CENTER Fungus culture + smear (02/28/2019 8:46 AM CDT) Result No fungus isolated in 28 days [facility] Fungus Smear No fungi seen [facility] Specimen Wound Performing Organization Address City/[facility]/Zipcode Phone Number [address] [address] [place] SPIN/CONCENTRATION CHARGE (02/28/2019 8:46 AM CDT) Concentration charged Done [facility] Specimen Wound Performing Organization Address [facility] Phone Number [address] [address] [place] CARDIAC CATH REPORT - SCAN (02/15/2019 11:30 AM CDT) Narrative Performed At This result has an attachment that is no t available. POC-Glucose meter (02/14/2019 12:07 PM CDT)Only the most recent of49 results within the time period is included. POC-Glucose Meter 91Comment: TESTED AT 70 - 110 mg/dL [address] [address] Specimen Blood Performing Organization Address [facility] Phone Number [address] [address] [place] Calcium, Ionized (02/14/2019 3:41 AM CDT)Only the most recent of9 resultswithin the time period is included. Calcium, Ion 1.03 (L) 1.12 - 1.27 mmol/L [facility] pH, Blood 7.51 [facility] Specimen Blood Performing Organization Address [facility] Phone Number [address] [address] [place] Phosphorus (02/14/2019 3:41 AM CDT)Only the most recent of16 resultswithin the time period is included. Phosphorus 3.0 2.3 - 4.7 mg/dL [facility] Specimen Blood Performing Organization Address [facility] Phone Number [address] [address] [place] Magnesium (02/14/2019 3:41 AM CDT)Only the most recent of16 resultswithin the time period is included. Magnesium 1.7 1.6 - 2.6 mg/dL [facility] Specimen Blood Performing Organization Address City/State/Zipcode Phone Number [address] [address] [place] HEMODIALYSIS INPATIENT (02/12/2019 9:10 PM CDT) Narrative Performed At Torrie Moralez RN 02/12/2019 10:3 1 PM Tolerated 325 ml only of fluids removed. Reports of nausea, UF stopped when it was about 920 ml. Medica shobha with Zofran 4 mg. IV prn. Had episode of hypotension, NS 200 ml bolus given to support blood pressure. Hypertensive post proced ure, noted to be sensitive with fluids removed/given, blo od pressure would suddenly dropped or goes up with fluids being removed or given. Transferred back to her room in [place] in stable condition. HD duration 2.5 hours UF 0.3 L v ia right IJ tunneled HD catheter. Lab Results Component Value Date WBC 9.4 02/12/2019 HGB 8.2 (L) 02/12/2019 HCT 26.5 (L) 02/12/2019 MCV 96.0 (H) 02/12/2019 PLT 111 (L) 02/12/2019 PLT 114 (L) 02/12/2019 Lab Results Component Value Date GLUCOSE 91 02/12/2019 CALCIUM 8.4 02/12/2019 NA 136 02/12/2019 K 4.4 02/12/2019 CO2 25 02/12/2019 CL 105 02/12/2019 BUN 40 (H) 02/12/2019 CREATININE 3.29 (H) 02/12/2019 No components found for: HEPSAG Vitals: 02/12/19 2200 BP: 198/84 Pulse: 78 Resp: 18 Temp: 98.5 F (36.9 C) SpO2: 100% TRANSFUSION SERVICE REPORT - SCAN (02/12/2019 5:50 PM CDT)Only the most recent of6 resultswithin the time period is included. Narrative Performed At This result has an attachment that is no t available. Platelet Aggregation: Function Screen (02/12/2019 4:34 AM CDT) Weak ADP 41 (L) 60 - 91 % [facility] ER Plt. Function Screen 40-49% indicates [facility] Interpretation moderate platelet [facility] NTER dysfunction Pathologist: Jada Freire MD [facility] (electronic signature) [facility] Platelets 111 (L) 150 - 450 K/CU [facility] MM [facility] ER Specimen Blood Narrative Performed At Platelet Function Screen results may be [facility] falsely low with platelet counts <100,000/cu mm. Performing Organization Address City/[facility] Phone Number [address] [address] CENTER Serotonin release assay (02/12/2019 4:34 AM CDT) Scan Result BLOOD [facility] Low Dose 0.1 IU/mL 100 % BLOOD [facility] High Dose 100 IU/mL 3 % [facility] KRYSTIN Result Positive BLOOD [facility] Specimen Blood Narrative Performed At This result has an attachment that is no t available. Performing Organization Address [facility] Hospital[facility] Phone Number [facility] [address] [address] Heparin antibody (02/12/2019 4:34 AM CDT) Heparin Ab Positive-See Serotonin Negative [facility] Release Assay for MEDICAL CENTER Confirmation (A) Heparin Antibody Optical 3.000 (H) <0.400 [facility] 4T Total Score 2 [facility] [facility] Specimen Blood Narrative Performed At Probability of HIT based on scoring [facility] system: 6-8 = High probability; 4-5 = intermediate probability; 0-3 = low probability Performing Organization Address City/[facility] Phone Number [facility] [address] [place] [address] CENTER aPTT (02/12/2019 4:34 AM CDT) PTT 42.2 (H) 22.5 - 36.0 seconds [facility] Specimen Blood Narrative Performed At Draw baseline aPTT prior to infusion [facility] Performing Organization Address City/State/Zipcode Phone Number [facility] [address] [place] [address] CENTER Comprehensive metabolic panel (02/12/2019 4:34 AM CDT)Only the most recent of14 resultswithin the time period is included. Protein, Total 5.7 (L) 6.0 - 8.3 gm/dL [facility] Albumin 2.4 (L) 3.5 - 5.0 g/dL [facility] Alkaline Phosphatase 115 40 - 150 U/L [facility] Total Bilirubin 0.6 0.2 - 1.2 mg/dL [facility] Sodium 136 136 - 145 meq/L [facility] Potassium 4.4 3.5 - 5.1 meq/L [facility] Chloride 105 98 - 107 meq/L [facility] CO2 25 22 - 29 meq/L [facility] BUN 40 (H) 7 - 21 mg/dL [facility] Creatinine 3.29 (H) 0.57 - 1.25 mg/dL [facility] Glucose 91 70 - 105 mg/dL [facility] Calcium 8.4 8.4 - 10.2 mg/dL [facility] AST 16 5 - 34 U/L [facility] ALT 10 6 - 55 U/L [facility] EGFR 17Comment: ESTIMATED GFR mL/min/1.73 sq m [facility] IS NOT ACCURATE [facility] CREATININE CLEARANCE IN PREDICTING GLOMERULAR FILTRATION RATE. ESTIMATED GFR IS NOT APPLICABLE FOR DIALYSIS PATIENTS. Specimen Blood Performing Organization Address City/State/Zipcode Phone Number [facility] [address] [place] [address] CENTER Prepare Leuko-Red RBC (02/11/2019 11:54 PM CDT)Only the most recent of4 results within the time period is included. CROSSMATCH COMPATIBLE SAFETRACE TX Unit ABO O Pos SAFETRACE TX UNIT NUMBER [id number] SAFETRACE TX Status TX_TIMEINCHART SAFETRACE TX Blood Bank Product RED BLOOD CELLS SAFETRACE TX PRODUCT CODE [id number] SAFETRACE TX Specimen Other Performing Organization Address City/State/Zipcode Phone Number SAFETRACE TX CT abdomen/pelvis with IV contrast (02/10/2019 3:06 PM CDT) Specimen Narrative Performed At FINAL REPORT [employer] CT scan of the abdomen and pelvis. MEDICAL HISTORY: Abdominal pain. COMPARISON STUDY: January 25, 2019. TECHNIQUE: Contiguous helical slices wer e acquired through the abdomen and pelvis post administration o f intravenous and oral contrast. This exam was performed accord ing to our department dose optimization program which includes auto mated exposure control, adjustment of the mA and/or kV according to the patient's size and/or use of iterative reconstruction techniqu e. FINDINGS: Bilateral small pleural effusi ons are seen with adjacent atelectasis or consolidation. Some groun dglass opacities are seen. The liver, spleen, pancreas, and adrenal glands are unremarkable. Both mentasta kidneys are atrophic in natu re. The gallbladder is distended with some vicarious excretion. No biliary dilatation is seen. There are no dilated loops of bowel seen to suggest obstruction. The appendix is now well seen but some clips are seen in the right lower quadrant. No obvious signs of appendicit is are noted. Diverticulosis is seen without evidence of diverticulitis. There is no free fluid or free air. Post surgical changes are seen in the le ft pelvis. There has been interval development of a 10.5 x 2.9 cm region of high attenuation fluid adjacent to the surgical site, mos t likely a hematoma. Also seen is a 8.5 x 5.4 cm hematoma in the a nterior subtendinous pelvic tissues, stable from previous but with m ore high attenuation content, possibly related to some internal hemorr jean marie. Bone windows demonstrate degenerative ch anges. Postsurgical changes are seen in the left pelvis. IMPRESSION: 1. Postoperative changes in left pelvis with interval development of fluid along the left pelvic sidewall lindsay picious for hematoma. 2. Continued likely hematoma in the subc utis tissues of the anterior pelvis. 3. Distended gallbladder, possibly relat ed to n.p.o. state. This is similar to previous. 4. Atrophic appearing mentasta kidneys. 5. Diffuse anasarca. Bilateral pleural e ffusions. A verbal report was given to the patient 's nurse, Kael at the time of dictation. He was instructed to inform t he physician. Signed: Leo Trivedi MD Report Verified Date/Time:02/10/2019 16:34:31 Reading Location: [address] Reading Room Procedure Note Interface, External Ris In - 02/10/2019 6:21 PM CDT FINAL REPORT CT scan of the abdomen and pelvis. MEDICAL HISTORY: Abdominal pain. COMPARISON STUDY: January 25, 2019. TECHNIQUE: Contiguous helical slices wer e acquired through the abdomen and pelvis post administration o f intravenous and oral contrast. This exam was performed accord ing to our department dose optimization program which includes auto mated exposure control, adjustment of the mA and/or kV according to the patient's size and/or use of iterative reconstruction techniqu e. FINDINGS: Bilateral small pleural effusi ons are seen with adjacent atelectasis or consolidation. Some groun dglass opacities are seen. The liver, spleen, pancreas, and adrenal glands are unremarkable. Both mentasta kidneys are atrophic in natu re. The gallbladder is distended with some vicarious excretion. No biliary dilatation is seen. There are no dilated loops of bowel seen to suggest obstruction. The appendix is now well seen but some clips are seen in the right lower quadrant. No obvious signs of appendicit is are noted. Diverticulosis is seen without evidence of diverticulitis. There is no free fluid or free air. Post surgical changes are seen in the le ft pelvis. There has been interval development of a 10.5 x 2.9 cm region of high attenuation fluid adjacent to the surgical site, mos t likely a hematoma. Also seen is a 8.5 x 5.4 cm hematoma in the a nterior subtendinous pelvic tissues, stable from previous but with m ore high attenuation content, possibly related to some internal hemorr jean marie. Bone windows demonstrate degenerative ch anges. Postsurgical changes are seen in the left pelvis. IMPRESSION: 1. Postoperative changes in left pelvis with interval development of fluid along the left pelvic sidewall lindsay picious for hematoma. 2. Continued likely hematoma in the subc utis tissues of the anterior pelvis. 3. Distended gallbladder, possibly relat ed to n.p.o. state. This is similar to previous. 4. Atrophic appearing mentasta kidneys. 5. Diffuse anasarca. Bilateral pleural e ffusions. A verbal report was given to the patient 's nurse, Kael at the time of dictation. He was instructed to inform t he physician. Signed: Leo Trivedi MD Report Verified Date/Time: 02/10/2019 1 6:34:31 Reading Location: [facility] [id number] [facility] Reading Room Performing Organization Address City/State/Zipcode Phone Number [facility] HEMODIALYSIS INPATIENT (02/10/2019 12:36 PM CDT) Narrative Performed At Torrie Moralez RN 02/10/20193: 09 PM Procedure and 1 unit prbc transfused ivan erated well with no reaction noted. Vital signs stable. HD duration 2.5 hours UF 1 L via right IJ tunneled HD catheter. Lab Results Component Value Date WBC 8.7 02/10/2019 HGB 6.9 (L) 02/10/2019 HCT 22.1 (L) 02/10/2019 MCV 96.1 (H) 02/10/2019 PLT 92 (L) 02/10/2019 Lab Results Component Value Date GLUCOSE 91 02/10/2019 CALCIUM 8.5 02/10/2019 NA 138 02/10/2019 K 4.8 02/10/2019 CO2 26 02/10/2019 CL 106 02/10/2019 BUN 27 (H) 02/10/2019 CREATININE 2.47 (H) 02/10/2019 No components found for: HEPSAG Vitals: 02/10/19 1236 BP: 169/83 Pulse: 79 Resp: 16 Temp: 98.9 F (37.2 C) SpO2: 100% Transfuse Leuko-Red RBC (02/10/2019 11:37 AM CDT)Only the most recent of6 resultswithin the time period is included.Type and screen, automated (02/10/2019 5:46 AM CDT)Only the most recent of3 resultswithin the time period is included. ABO/RH AUTOMATED (BEAKER) O POSITIVE [facility] Ab Scrn NEGATIVE [facility] Specimen Blood Performing Organization Address [facility] Hospitalcoid Phone Number [address] [address] B-type Natriuretic Factor (BNP) (02/09/2019 2:53 AM CDT)Only the most recent of 2 resultswithin the time period is included. BNP 3,204 (H) 0 - 100 pg/mL [facility] Specimen Blood Performing Organization Address [facility] Hospitalcode Phone Number [address] [address] [place] Protein, random urine (02/07/2019 4:06 AM CDT) Protein, Urine 178 (H) 0 - 14 mg/dL [facility] Specimen Urine Performing Organization Address [facility] Phone Number [address] [address] CENTER Creatinine, random urine (02/07/2019 4:06 AM CDT) Creatinine, Ur 19.0Comment: Qc ok in unity mg/dL [facility] Specimen Urine Narrative Performed At Reference Range: No Normals [facility] Performing Organization Address [facility] Hospitalcode Phone Number [address] [address] [place] Urinalysis w/Microscopic (02/06/2019 9:52 AM CDT) Color, UA Yellow [facility] Clarity, UA Clear [facility] Specific [place], UA 1.006 1.001 - 1.035 [facility] pH, UA 8.5 (H) 5.0 - 8.0 [facility] Protein, UA 600 mg/dL (A) Negative [facility] Glucose, UA 300 mg/dL (A) Negative [facility] Ketones, UA Negative Negative [facility] Bilirubin, UA Negative Negative [facility] Blood, UA Negative Negative [facility] Nitrite, UA Negative Negative [facility] Leukocytes, UA Negative Negative [facility] Urobilinogen, UA 0.2 0.2 - 1.0 mg/dL [facility] RBC, UA 2 /HPF [facility] WBC, UA 2 /HPF [facility] Squam Epithel, UA 1 /HPF [facility] Specimen Source [facility] Specimen Urine Performing Organization Address City/State/Zipcode Phone Number [facility] [address] [place] [address] [place] XR chest 1 view portable / bedside (02/06/2019 6:55 AM CDT)Only the most recent of9 resultswithin the time period is included. Specimen Narrative Performed At FINAL REPORT [employer] TECHNIQUE: Frontal chest radiograph date d 02/06/2019. CLINICAL HISTORY: Post extubation COMPARISON STUDY: Chest radiograph dated 02/05/2019 IMPRESSION: Right-sided vascular line is unchanged. There is improved aeration of the lung bases. Lungs are clear. No pleu ral effusion or pneumothorax. Cardiomediastinal silhouette is normal i n size. No pulmonary edema. No fracture. Signed: Jagruti Mcarthur MD Report Verified Date/Time:02/06/2019 08:40:46 Reading Location: [facility] Radiology Reading Room Procedure Note Interface, External Ris In - 02/06/2019 8:42 AM CDT FINAL REPORT TECHNIQUE: Frontal chest radiograph date d 02/06/2019. CLINICAL HISTORY: Post extubation COMPARISON STUDY: Chest radiograph dated 02/05/2019 IMPRESSION: Right-sided vascular line is unchanged. There is improved aeration of the lung bases. Lungs are clear. No pleu ral effusion or pneumothorax. Cardiomediastinal silhouette is normal i n size. No pulmonary edema. No fracture. Signed: Jagruti Mcarthur MD Report Verified Date/Time: 02/06/2019 0 8:40:46 Reading Location: [facility] Radiology Reading Room Performing Organization Address City/State/Zipcode Phone Number RIS Blood Culture - Routine (Left Venipuncture) (02/05/2019 11:35 PM CDT)Only the most recent of2 resultswithin the time period is included. Result No growth in 5 days [facility] Specimen Blood Performing Organization Address City/State/Zipcode Phone Number [place] [phone] [place] [address] CENTER HEMODIALYSIS INPATIENT (02/05/2019 7:45 PM CDT) Narrative Performed At Torrie Moralez RN 02/05/20198: 41 PM Procedure tolerated well. Vital signs st able. HD duration2.5 hoursUF 0.5 L via right IJ tunneled HD catheter. Lab Results Component Value Date WBC 18.1 (H) 02/05/2019 HGB 8.5 (L) 02/05/2019 HGB 8.5 (L) 02/05/2019 HCT 25.4 (L) 02/05/2019 HCT 25.4 (L) 02/05/2019 MCV 89.4 02/05/2019 PLT 183 02/05/2019 Lab Results Component Value Date GLUCOSE 128 (H) 02/05/2019 CALCIUM 8.7 02/05/2019 NA 138 02/05/2019 K 4.5 02/05/2019 CO2 28 02/05/2019 CL 105 02/05/2019 BUN 36 (H) 02/05/2019 CREATININE 3.47 (H) 02/05/2019 No components found for: HEPSAG Vitals: 02/05/192014 BP: (!) 197/96 Pulse: 101 Resp: 18 Temp: SpO2: 98% ECHOCARDIOGRAM REPORT - SCAN (02/02/2019 9:21 PM CDT) Narrative Performed At This result has an attachment that is no t available. Transfusion Reaction Investigation (02/02/2019 1:36 PM CDT) TRANSFUSION RX SEE COMMENTComment: [facility](BEAKER) Symptoms most likely due B [facility] to volume overload: The patient developed shortness of breath and chest pain during transfusion of PRBCs. Patient admitted from dialysis center after cardiac arrest. Vital signs were significant only for an increase in blood pressure from 177/81 to 211/100. Blood bank work-up was negative for evidence of clerical error or immune mediated hemolysis. The patient's chest xray shows evidence of mild pleural effusion and BNP is 3301. Symptoms and laboratory findings are suggestive of volume overload. Should transfusion be required, diuresis and slow transfusion rates are suggested.Electronic Signature: Jelena Galdamez M.D. Specimen Blood Performing Organization Address City/State/Zipcode Phone Number [facility] [address] [place] [address] Transesophageal echo (02/01/2019 2:33 PM CDT) Ejection Fraction [facility] ECHO HEAR TLAB MKCKESSON CPACS Specimen Narrative Performed At Transesophageal Echocardiography Report (ROS) [facility] ECHO HEARTLAB [facility] CPACS Demographics Patient Name Breana LU of Study 02/01/2019 [id number] Gender Female Visit Number [id number] Black [id number] Room Number 1039 Number Date of Birth1950Referring Physician Nelda Dean Age68 year(s)Dock Attendant Donnie Foley Interpreting Martínez Gruber MD Physician Fellow LARISA Byrd Procedure Type of Study ROS procedure:TRANSESOPHA GEAL ECHO Indications:Mitral regurgitation. Clinical History ANEMIA,CHF,DM,ESRD Height: 67 inches Weight: 57.61 kg (127 lbs) BSA: 1.67 m^2 BMI: 19.89 kg/m^2 HR: 85 bpm BP: 192/79 mmHg Procedure Informed Consent ROS procedure notes Moderate sedation by performing MD using 2 mg IV versed and 0 mcg IV fentanyl. The patient was counseled and informed consent was obtained. Topical and intravenous anesthesia was administered. The esophagus was intubated without difficulty. The probe was passed and all standard echocardiographic views were obtained. The patient tolerated the procedure well.. Summary 1. There degeneration of both mitral leaflets with moderate mitral regurgitation. Moderate mitral annular calcification predominantly involving the posterior annulus with extension of calcification to the base and mid PML. . Two distinct jets are seen. There is no systolic flow reversal in the pulmonary veins. There is mild mitral stenosis with a mean pressure gradient of 6 mmHg. 2. LV chamber size is enlarged. There is no LV hypertrophy. All of the segments appear to contract normally. Estimated ejection fraction by visual estimation method is normal. 3. The right ventricular chamber size and systolic function are within normal limits. Previous Study Compared to prior study dated 01/16/2019, there is no significant change. Signature Findings Rhythm/BPNormal sinus rhythm during the exam. Left Ventricle LV chamber size is enlarged. There is no LV hy pertrophy. All of the segments appear to contract no rmally. Estimated ejection fraction by v isual es timation method is normal. Left AtriumLeft atrium appears enlarged. No evidence of left at rial or left atrial appendage thrombus. Right VentricleThe right ventricular chamber size and systolic fu nction are within normal limits. Right Atrium Right atrial size is normal. Atrial SeptumThe intraatrial septum is well visualized. Normal in traatrial septum by available views. IV saline contrast injection was negative f or a PFO (p atent foramen ovale) at rest. Aortic Valve There is moderate calcification of the aortic irish ve le aflets. Mitral Valve There degeneration of both mitral leaflets wit h mo derate mitral regurgitation. Moderate mi tral an nular calcification predominantly involv ing the po sterior annulus with extension of calcif ication to the base and mid PML. . Two distinct jet s are se en. There is no systolic flow reversal i n the pu lmonary veins. There is mild mitral sten osis with a mean pressure gradient of 6 mmHg. 3D imaging and reconstruction of the mitral valve pe rformed. Tricuspid ValveTricuspid structure is normal. Trace tricuspid re gurgitation. Pu lmonary artery systolic pressure is saira mated at 36 mmHg + right atrial pressure. Pulmonic Valve Normal pulmonic valve structure and function. AortaAortic root size (sinus of Valsalva diameter) i s no rmal. Visualized aortic arch is normal. PericardiumNo pericardial effusion is visualized. IVC/SVC/PA/PV/PleuralIVC and SVC are grossly normal by available views. Un able to estimate right atrial pressure. Procedure Note Interface, External Ris In - 02/01/2019 9:41 PM CDT Transesophageal Echocardiography Report (ROS) Demographics Patient Name RHODA LU Date of Study 02/01/2019 [place] Female Visit Number [id number] Race Black Room Number 1039 Number Date of 1950 Refe rring Physician Nelda Dean Age 68 year(s) Christi Fields [facility] Og Inte rpreting Martínez Gruber MD [facility] rodger Fellow LARISA Byrd Procedure Type of Study ROS procedure:TRANSESOPHAGEAL ECHO Indications:Mitral regurgitation. Clinical History ANEMIA,CHF,DM,ESRD Height: 67 inches Weight: 57.61 kg (127 lbs) BSA: 1.67 m^2 BMI: 19.89 kg/m^2 HR: 85 bpm BP: 192/79 mmHg Procedure Informed Consent ROS procedure notes Moderate sedation by performing MD bharath johnson 2 mg IV versed and 0 mcg IV fentanyl. The patient was counseled and informed consent was obtained. Topical and intravenous anesthesia was administered . The esophagus was intubated without difficulty. The probe was passe d and all standard echocardiographic views were obtained. The patient tolerated the procedure well.. Summary 1. There degeneration of both mitral le aflets with moderate mitral regurgitation. Moderate mitral annular calcification predominantly involving the posterior annulus with ex tension of calcification to the base and mid PML. . Two distinct jets a re seen. There is no systolic flow reversal in the pulmonary veins. There is mild mitral stenosis with a mean pressure gradient of 6 mmHg. 2. LV chamber size is enlarged. There i s no LV hypertrophy. All of the segments appear to contract normally. E stimated ejection fraction by visual estimation method is normal. 3. The right ventricular chamber size a nd systolic function are within normal limits. Previous Study Compared to prior study dated 01/16/2019 , there is no significant change. Signature Findings Rhythm/BP Normal sinus rhy thm during the exam. Left Ventricle LV chamber size is enlarged. There is no LV hypertrophy. All of the segments appear to contract normally. Estima shobha ejection fraction by visual estimation metho d is normal. Left Atrium Left atrium appe ars enlarged. No evidence of left atrial or left a trial appendage thrombus. Right Ventricle The right ventri cular chamber size and systolic function are wit hin normal limits. Right Atrium Right atrial siz e is normal. Atrial Septum The intraatrial septum is well visualized. Normal intraatrial sept um by available views. IV saline contra st injection was negative for a PFO (patent foramen ovale) at rest. Aortic Valve There is moderat e calcification of the aortic valve leaflets. Mitral Valve There degenerati on of both mitral leaflets with moderate mitral regurgitation. Moderate mitral annular calcific ation predominantly involving the posterior annulu s with extension of calcification to the base and mid PML. . Two distinct jets are seen. There is n o systolic flow reversal in the pulmonary veins. There is mild mitral stenosis with a mean pressure gradient of 6 mmHg. 3D imaging and r econstruction of the mitral valve performed. Tricuspid Valve Tricuspid struct ure is normal. Trace tricuspid regurgitation. Pulmonary artery systolic pressure is estimated at 36 mmHg + right atrial pressure. Pulmonic Valve Normal pulmonic valve structure and function. Aorta Aortic root size (sinus of Valsalva diameter) is normal. Visualiz ed aortic arch is normal. Pericardium No pericardial e ffusion is visualized. IVC/SVC/PA/PV/Pleural IVC and SVC are grossly normal by available views. Unable to estima te right atrial pressure. Performing Organization Address City/State/Zipcode Phone Number [facility] HEMODIALYSIS INPATIENT (01/30/2019 5:16 PM CDT) Narrative Performed At Holly Jain RN 01/30/2019 5:19 PM Tolerated 3.5 hours of HD with net fluid removal of 1.5 liters. One dose of mannitol administered during dialysis for BP support. Ultram given at 1459 for left foot pain. Reports relief an hour after administration. Npo pain reported at end of dialysis. Report given to JONI Vargas. Lab Results Component Value Date WBC 14.3 (H) 01/30/2019 HGB 7.8 (L) 01/30/2019 HCT 24.9 (L) 01/30/2019 MCV 92.2 01/30/2019 PLT 236 01/30/2019 Lab Results Component Value Date GLUCOSE 98 01/30/2019 CALCIUM 8.4 01/30/2019 NA 136 01/30/2019 K 4.1 01/30/2019 CO2 24 01/30/2019 CL 103 01/30/2019 BUN 53 (H) 01/30/2019 CREATININE 4.89 (H) 01/30/2019 Results for RHODA LU ( ) as of 01/30/2019 17:19 Ref. Range 01/18/2019 06:31 Hepatitis B Surface Ag Latest Ref Range: NonreactiveNonreactive Iron, TIBC, % sat. (without ferritin) (01/30/2019 4:19 AM CDT) Iron 44.0 40.0 - 160.0 ug/dL [facility] TIBC 138 (L) 250 - 450 ug/dL [facility] Iron % Saturation 32 20 - 55 % [facility] Specimen Blood Performing Organization Address City/[facility] Phone Number [address] [address] CENTER Reticulocyte count (01/30/2019 4:19 AM CDT) % Retic 1.2 0.5 - 1.7 % [facility] Specimen Blood Performing Organization Address City/State/Zipcode Phone Number [address] [address] CENTER Ferritin (01/30/2019 4:19 AM CDT) Ferritin 606 (H) 5 - 275 ng/mL [facility] Specimen Blood Performing Organization Address City/[facility] Phone Number [address] [address] CENTER after 01/29/2019 Insurance Payer Benefit Plan / Group Subscriber ID Type Phone [facility]ress [facility] Maps Contracted Advance Directives Patient has advance care planning documents, and code status on file. For more information, please contact:[address], [place] [phone] Code Status Date Activated Date Inactivated Comments Full Code 02/27/2019 11:49 PM 03/02/2019 8:37 PM This code status was determined by: Patient Full Code 02/01/2019 2:41 PM 02/14/2019 6:31 PM This code status was determined by: Patient Full Code 01/16/2019 4:41 PM 02/01/2019 2:41 PM This code status was determined by: Patient
--- OUTSIDE RECORDS SUMMARY | 2020-01-30 19:11 | XMS REPORT ---
:1950 Author Organization [facility] t Address [address] [place] [place] [address] Care Team Providers Name Role Phone Magaly Vera MD Primary Care Physician Jose HENNESSY Attending Clinician Unavailable KARL Attending Clinician Unavailable WM CHILDERS Admitting Clinician Unavailable FABRICIO Admitting Clinician Unavailable Problems Condition Condition Condition Status Onset Resolution Last Treating Co mments Source Name Details Category Date Date Treatment Clinician Date Anemia Anemia Disease Active 2016-09 [place] 10-31 Methodi 00:00: st 00 Allergies, Adverse Reactions, Alerts Allergy Allergy Status Severity Reaction(s) Onset Inactive Treating Comm ents Source Name Type Date Date Clinician Preston Dickerson Active Alicia, 2016-09 [place] n line ty to Shortness Of 10-31 Meth carter adverse Breath 00:00: st reaction 00 s to drug Social History Social Habit Start Date Stop Date Quantity Comments Source History of tobacco Cigarette Smoker [place] use [facility] Sex Assigned At [place] [facility] Cigarettes smoked 2017-09-01 2017-09-01 [place] current (pack per 00:00:00 00:00:00 Method) - Reported Cigarette 2017-09-01 2017-09-01 [place] pack-years 00:00:00 00:00:00 [place] Smoking Status Start Date Stop Date Source Former smoker 2017-09-01 00:00:00 2017-09-01 00:00:00 [place] Medications Ordered Filled Start Stop Current Ordering Indication Dosage Frequency Signature Comments Components Source Medication Medication Date Date Medication? Clinician (SIG) Name Name hydrALAZINE 2016-09 Yes 25mg [id number] Take 25 mg [place] (APRESOLINE 2- [id number] by mouth 3 Methodi ) 25 MG 13:32: 3D (three) st tablet 53 times a day. travoprost 2016-09 Yes 1[drp] QD Administer [place] (TRAVATAN-Z 2-26 1 drop to Met hodi ) 0.004 % 13:32: both eyes st 53 nightly. brimonidine 2016-09 Yes 1[drp] Q12H Administer [place] -timolol 2-26 1 drop to Method i (COMBIGAN) 13:32: both eyes st 0.2-0.5 % 53 every 12 ophthalmic (twelve) solution hours. furosemide 2016-09 Yes 80mg QD Take 80 mg [place] (LASIX) 80 2-26 by mouth Metho di mg tablet 13:32: daily. st 52 SPIRONOLACT 2016-09 Yes 75mg Take 75 mg [place] ONE ORAL 2-26 by mouth Methodi 13:32: daily. st 52 Procedures This patient has no known procedures. Encounters Start End Encounter Admission Attending Care Care Encounter Source Date/Time Date/Time Type Type Clinicians Facility Department ID 2019-11-21 Outpatient [facility] [address] [facility] 08:45:42 2020-01-29 2020-01-29 Inpatient [facility] [address] [facility] 11:08:00 07:47:00 2020-01-18 2020-01-18 Outpatient [facility] [address] [facility] 07:17:00 07:17:00 2019-08-31 2019-08-31 Outpatient [facility] [address] [facility] 07:55:00 07:55:00 2019-05-29 2019-05-29 Emergency E [facility] [address] [facility] 16:31:00 16:31:00 2019-05-11 2019-05-11 Outpatient [facility] [address] [facility] 06:00:00 06:00:00 Results Test Description Test Time Test Comments Results Result Comments Source AFB CULTURE + SMEAR 2019-04-16 13:51:00 Test Item Value Reference Range Interpretation Comme nts CULTURE (BEAKER) (test code = 1095) No acid-fast bacilli isolated i n 42 days AFB SMEAR (BEAKER) (test code = 994) No acid fast bacilli seen FUNGUS CULTURE + [id number] 09:38:00 Test Item Value Reference Range Interpretation Comments CULTURE (BEAKER) (test No fungus isolated in code = 1095) 28 days FUNGUS SMEAR (BEAKER) No fungi seen (test code = 1406) SURGICALLY OBTAINED CULTURE + GRAM [id number] 10:25:00 Test Item Value Reference Interpretation Comments Range CULTURE (BEAKER) (test ESCHERICHIA COLI A 1 + Escherichia code = 1095) coli Amikacin (test code = S 1) Ampicillin + Sulbactam S (test code = 6) Aztreonam (test code = S 32) Cefepime (test code = S 51) Cefoxitin (test code = S 68) Ceftazidime (test code S = 27) Ceftriaxone (test code S = 52) Ertapenem (test code = S 38) Gentamicin (test code S = 18) Levofloxacin (test S code = 22) Meropenem (test code = S 34) Nitrofurantoin (test S code = 23) Piperacillin + S Tazobactam (test code = 29) Tetracycline (test S code = 2) Tobramycin (test code S = 25) Trimethoprim + S Sulfamethoxazole (test code = 47) CULTURE (BEAKER) (test ENTEROBACTER A <1+ E nterobacter code = 1095) CLOACAE COMPLEX cloacae complexAmpC Positive Amikacin (test code = S 1) Aztreonam (test code = R 32) Cefepime (test code = R 51) Cefoxitin (test code = R 68) Ceftazidime (test code R = 27) Ceftriaxone (test code R = 52) Gentamicin (test code S = 18) Levofloxacin (test S code = 22) Meropenem (test code = R 34) Nitrofurantoin (test S code = 23) Piperacillin + R Tazobactam (test code = 29) Tetracycline (test S code = 2) Tobramycin (test code S = 25) Trimethoprim + S Sulfamethoxazole (test code = 47) CULTURE (BEAKER) (test A 4+ En terococcus code = 1095) species GRAM STAIN RESULT <1+ WBCs (BEAKER) (test code = 1123) GRAM STAIN RESULT No organisms seen (BEAKER) (test code = 406148) ANAEROBIC [id number] 02:58:00 Test Item Value Reference Range Interpretation Comments CULTURE (BEAKER) (test No anaerobes isolated code = 1095) HEMOGLOBIN AND [id number] 10:32:00 Test Item Value Reference Range Interpretation Comments HEMOGLOBIN (BEAKER) (test code = 7.6 GM/DL 11.2-15.7 L 410) HEMATOCRIT (BEAKER) (test code = 24.9 % 34.1-44.9 L 411) BASIC METABOLIC [id number] 06:01:00 Test Item Value Reference Range Interpretation Comments SODIUM (BEAKER) 139 meq/L 136-145 (test code = 381) POTASSIUM (BEAKER) 4.9 meq/L 3.5-5.1 (test code = 379) CHLORIDE (BEAKER) 106 meq/L 98-107 (test code = 382) CO2 (BEAKER) (test 29 meq/L 22-29 code = 355) BLOOD UREA NITROGEN 22 mg/dL 7-21 H (BEAKER) (test code = 354) CREATININE (BEAKER) 2.59 mg/dL 0.57-1.25 H (test code = 358) GLUCOSE RANDOM 94 mg/dL 70-105 (BEAKER) (test code = 652) CALCIUM (BEAKER) 8.8 mg/dL 8.4-10.2 (test code = 697) EGFR (BEAKER) (test 22 mL/min/1.73 ESTIMA RONAL GFR IS code = 1092) sq m NOT ACCURATE CREATININE CLEARANCE IN PREDICTING GLOMERULAR FILTRATION RATE . ESTIMATED GFR I S NOT APPLICABLE FOR DIALYSIS PATIEN TS. RAD, PELVIS, 1 OR 2 [id number] 11:58:00Reason for exam:->follow up for pelvis ORIFFINAL REPORT CLINICAL HISTORY: follow up for pelvis ORIF TECHNIQUE: AP pelvisCOMPARISON: Abdominal CT 02/10/2019 IMPRESSION: Left pelvic sidewall plate and screw fixation is againseen. An acute fracture line is not definitively seen, although generalized osteopenia and overlying bowel gas may obscure subtle fractures. Soft tissue fullness along the left pelvic sidewall is compatible with a hematoma seen on the CT. There is a pelvic surgical drain in place. Signed: Carlee Lindo MDReport Verified Date/Time: 03/01/2019 11:58:06 Reading Location: [facility] Radiology ReadingRoom /CONCENTRATION [id number] 11:09:00 Test Item Value Reference Range Interpretation Comments CONCENTRATION CHARGED (BEAKER) (test Done code = 2657) BASIC METABOLIC [id number] 07:44:00 Test Item Value Reference Range Interpretation Comments SODIUM (BEAKER) 136 meq/L 136-145 (test code = 381) POTASSIUM (BEAKER) 4.5 meq/L 3.5-5.1 (test code = 379) CHLORIDE (BEAKER) 106 meq/L 98-107 (test code = 382) CO2 (BEAKER) (test 24 meq/L 22-29 code = 355) BLOOD UREA NITROGEN 30 mg/dL 7-21 H (BEAKER) (test code = 354) CREATININE (BEAKER) 3.13 mg/dL 0.57-1.25 H (test code = 358) GLUCOSE RANDOM 81 mg/dL 70-105 (BEAKER) (test code = 652) CALCIUM (BEAKER) 8.7 mg/dL 8.4-10.2 (test code = 697) EGFR (BEAKER) (test 18 mL/min/1.73 ESTIMA RONAL GFR IS code = 1092) sq m NOT ACCURATE CREATININE CLEARANCE IN PREDICTING GLOMERULAR FILTRATION RATE . ESTIMATED GFR I S NOT APPLICABLE FOR DIALYSIS PATIEN TS. HEPATITIS B SURFACE [id number] 07:29:00 Test Item Value Reference Range Interpretation Comments HEPATITIS B SURFACE ANTIGEN (2) Nonreactive Nonreactive (BEAKER) (test code = 2585) CBC W/PLT COUNT & AUTO [id number] 07:03:00 Test Item Value Reference Range Interpretation Comments WHITE BLOOD CELL COUNT (BEAKER) 7.4 K/ L 3.5-10.5 (test code = 775) RED BLOOD CELL COUNT (BEAKER) 2.74 M/ L 3.93-5.22 L (test code = 761) HEMOGLOBIN (BEAKER) (test code = 8.4 GM/DL 11.2-15.7 L 410) HEMATOCRIT (BEAKER) (test code = 27.0 % 34.1-44.9 L 411) MEAN CORPUSCULAR VOLUME (BEAKER) 98.5 fL 79.4-94.8 H (test code = 753) MEAN CORPUSCULAR HEMOGLOBIN 30.7 pg 25.6-32.2 (BEAKER) (test code = 751) MEAN CORPUSCULAR HEMOGLOBIN CONC 31.1 GM/DL 32.2-35.5 L (BEAKER) (test code = 752) RED CELL DISTRIBUTION WIDTH 16.6 % 11.7-14.4 H (BEAKER) (test code = 412) PLATELET COUNT (BEAKER) (test 214 K/CU MM 150-450 code = 756) MEAN PLATELET VOLUME (BEAKER) 10.7 fL 9.4-12.3 (test code = 754) NUCLEATED RED BLOOD CELLS 0 /100 WBC 0-0 (BEAKER) (test code = 413) NEUTROPHILS RELATIVE PERCENT 75 % (BEAKER) (test code = 429) LYMPHOCYTES RELATIVE PERCENT 11 % (BEAKER) (test code = 430) MONOCYTES RELATIVE PERCENT 9 % (BEAKER) (test code = 431) EOSINOPHILS RELATIVE PERCENT 5 % (BEAKER) (test code = 432) BASOPHILS RELATIVE PERCENT 1 % (BEAKER) (test code = 437) NEUTROPHILS ABSOLUTE COUNT 5.56 K/ L 1.56-6.13 (BEAKER) (test code = 670) LYMPHOCYTES ABSOLUTE COUNT 0.83 K/ L 1.18-3.74 L (BEAKER) (test code = 414) MONOCYTES ABSOLUTE COUNT (BEAKER) 0.63 K/ L 0.24-0.36 H (test code = 415) EOSINOPHILS ABSOLUTE COUNT 0.35 K/ L 0.04-0.36 (BEAKER) (test code = 416) BASOPHILS ABSOLUTE COUNT (BEAKER) 0.04 K/ L 0.01-0.08 (test code = 417) IMMATURE GRANULOCYTES-RELATIVE 0 % 0-1 PERCENT (BEAKER) (test code = 2801) BASIC METABOLIC [id number] 05:20:00 Test Item Value Reference Range Interpretation Comments SODIUM (BEAKER) 138 meq/L 136-145 (test code = 381) POTASSIUM (BEAKER) 3.9 meq/L 3.5-5.1 (test code = 379) CHLORIDE (BEAKER) 107 meq/L 98-107 (test code = 382) CO2 (BEAKER) (test 27 meq/L 22-29 code = 355) BLOOD UREA NITROGEN 26 mg/dL 7-21 H (BEAKER) (test code = 354) CREATININE (BEAKER) 2.26 mg/dL 0.57-1.25 H (test code = 358) GLUCOSE RANDOM 101 mg/dL 70-105 (BEAKER) (test code = 652) CALCIUM (BEAKER) 8.4 mg/dL 8.4-10.2 (test code = 697) EGFR (BEAKER) (test 26 mL/min/1.73 ESTIMA RONAL GFR IS code = 1092) sq m NOT ACCURATE CREATININE CLEARANCE IN PREDICTING GLOMERULAR FILTRATION RATE . ESTIMATED GFR I S NOT APPLICABLE FOR DIALYSIS PATIEN TS. BASIC METABOLIC [id number] 00:03:00 Test Item Value Reference Range Interpretation Comments SODIUM (BEAKER) 140 meq/L 136-145 (test code = 381) POTASSIUM (BEAKER) 3.9 meq/L 3.5-5.1 (test code = 379) CHLORIDE (BEAKER) 106 meq/L 98-107 (test code = 382) CO2 (BEAKER) (test 28 meq/L 22-29 code = 355) BLOOD UREA NITROGEN 24 mg/dL 7-21 H (BEAKER) (test code = 354) CREATININE (BEAKER) 2.15 mg/dL 0.57-1.25 H (test code = 358) GLUCOSE RANDOM 128 mg/dL 70-105 H (BEAKER) (test code = 652) CALCIUM (BEAKER) 8.6 mg/dL 8.4-10.2 (test code = 697) EGFR (BEAKER) (test 27 mL/min/1.73 ESTIMA RONAL GFR IS code = 1092) sq m NOT ACCURATE CREATININE CLEARANCE IN PREDICTING GLOMERULAR FILTRATION RATE . ESTIMATED GFR I S NOT APPLICABLE FOR DIALYSIS PATIEN TS. CBC W/PLT COUNT & AUTO [id number] 23:21:00 Test Item Value Reference Range Interpretation Comments WHITE BLOOD CELL COUNT (BEAKER) 7.8 K/ L 3.5-10.5 (test code = 775) RED BLOOD CELL COUNT (BEAKER) 3.13 M/ L 3.93-5.22 L (test code = 761) HEMOGLOBIN (BEAKER) (test code = 9.6 GM/DL 11.2-15.7 L 410) HEMATOCRIT (BEAKER) (test code = 29.6 % 34.1-44.9 L 411) MEAN CORPUSCULAR VOLUME (BEAKER) 94.6 fL 79.4-94.8 (test code = 753) MEAN CORPUSCULAR HEMOGLOBIN 30.7 pg 25.6-32.2 (BEAKER) (test code = 751) MEAN CORPUSCULAR HEMOGLOBIN CONC 32.4 GM/DL 32.2-35.5 (BEAKER) (test code = 752) RED CELL DISTRIBUTION WIDTH 16.7 % 11.7-14.4 H (BEAKER) (test code = 412) PLATELET COUNT (BEAKER) (test 194 K/CU MM 150-450 code = 756) MEAN PLATELET VOLUME (BEAKER) 10.3 fL 9.4-12.3 (test code = 754) NUCLEATED RED BLOOD CELLS 0 /100 WBC 0-0 (BEAKER) (test code = 413) NEUTROPHILS RELATIVE PERCENT 73 % (BEAKER) (test code = 429) LYMPHOCYTES RELATIVE PERCENT 12 % (BEAKER) (test code = 430) MONOCYTES RELATIVE PERCENT 10 % (BEAKER) (test code = 431) EOSINOPHILS RELATIVE PERCENT 5 % (BEAKER) (test code = 432) BASOPHILS RELATIVE PERCENT 0 % (BEAKER) (test code = 437) NEUTROPHILS ABSOLUTE COUNT 5.67 K/ L 1.56-6.13 (BEAKER) (test code = 670) LYMPHOCYTES ABSOLUTE COUNT 0.91 K/ L 1.18-3.74 L (BEAKER) (test code = 414) MONOCYTES ABSOLUTE COUNT (BEAKER) 0.77 K/ L 0.24-0.36 H (test code = 415) EOSINOPHILS ABSOLUTE COUNT 0.36 K/ L 0.04-0.36 (BEAKER) (test code = 416) BASOPHILS ABSOLUTE COUNT (BEAKER) 0.03 K/ L 0.01-0.08 (test code = 417) IMMATURE GRANULOCYTES-RELATIVE 1 % 0-1 PERCENT (BEAKER) (test code = 2801) POCT-GLUCOSE [id number] 12:09:00 Test Item Value Reference Range Interpretation Comments POC-GLUCOSE METER 91 mg/dL 70-110 TESTED AT [facility] 6720 (BEAKER) (test code = [place] [address] 1538) CBC W/PLT COUNT & AUTO [id number] 05:22:00 Test Item Value Reference Range Interpretation Comments WHITE BLOOD CELL COUNT (BEAKER) 9.6 K/ L 3.5-10.5 (test code = 775) RED BLOOD CELL COUNT (BEAKER) 2.83 M/ L 3.93-5.22 L (test code = 761) HEMOGLOBIN (BEAKER) (test code = 8.5 GM/DL 11.2-15.7 L 410) HEMATOCRIT (BEAKER) (test code = 26.5 % 34.1-44.9 L 411) MEAN CORPUSCULAR VOLUME (BEAKER) 93.6 fL 79.4-94.8 (test code = 753) MEAN CORPUSCULAR HEMOGLOBIN 30.0 pg 25.6-32.2 (BEAKER) (test code = 751) MEAN CORPUSCULAR HEMOGLOBIN CONC 32.1 GM/DL 32.2-35.5 L (BEAKER) (test code = 752) RED CELL DISTRIBUTION WIDTH 15.3 % 11.7-14.4 H (BEAKER) (test code = 412) PLATELET COUNT (BEAKER) (test 186 K/CU MM 150-450 code = 756) MEAN PLATELET VOLUME (BEAKER) 9.9 fL 9.4-12.3 (test code = 754) NUCLEATED RED BLOOD CELLS 0 /100 WBC 0-0 (BEAKER) (test code = 413) NEUTROPHILS RELATIVE PERCENT 77 % (BEAKER) (test code = 429) LYMPHOCYTES RELATIVE PERCENT 7 % (BEAKER) (test code = 430) MONOCYTES RELATIVE PERCENT 9 % (BEAKER) (test code = 431) EOSINOPHILS RELATIVE PERCENT 6 % (BEAKER) (test code = 432) BASOPHILS RELATIVE PERCENT 0 % (BEAKER) (test code = 437) NEUTROPHILS ABSOLUTE COUNT 7.32 K/ L 1.56-6.13 H (BEAKER) (test code = 670) LYMPHOCYTES ABSOLUTE COUNT 0.69 K/ L 1.18-3.74 L (BEAKER) (test code = 414) MONOCYTES ABSOLUTE COUNT (BEAKER) 0.88 K/ L 0.24-0.36 H (test code = 415) EOSINOPHILS ABSOLUTE COUNT 0.56 K/ L 0.04-0.36 H (BEAKER) (test code = 416) BASOPHILS ABSOLUTE COUNT (BEAKER) 0.03 K/ L 0.01-0.08 (test code = 417) IMMATURE GRANULOCYTES-RELATIVE 1 % 0-1 PERCENT (BEAKER) (test code = 2801) BASIC METABOLIC [id number] 04:36:00 Test Item Value Reference Range Interpretation Comments SODIUM (BEAKER) 138 meq/L 136-145 (test code = 381) POTASSIUM (BEAKER) 4.4 meq/L 3.5-5.1 (test code = 379) CHLORIDE (BEAKER) 106 meq/L 98-107 (test code = 382) CO2 (BEAKER) (test 25 meq/L 22-29 code = 355) BLOOD UREA NITROGEN 35 mg/dL 7-21 H (BEAKER) (test code = 354) CREATININE (BEAKER) 3.09 mg/dL 0.57-1.25 H (test code = 358) GLUCOSE RANDOM 95 mg/dL 70-105 (BEAKER) (test code = 652) CALCIUM (BEAKER) 8.6 mg/dL 8.4-10.2 (test code = 697) EGFR (BEAKER) (test 18 mL/min/1.73 ESTIMA RONAL GFR IS code = 1092) sq m NOT ACCURATE CREATININE CLEARANCE IN PREDICTING GLOMERULAR FILTRATION RATE . ESTIMATED GFR I S NOT APPLICABLE FOR DIALYSIS PATIEN TS. [id number] 04:34:00 Test Item Value Reference Range Interpretation Comments PHOSPHORUS (BEAKER) (test code = 3.0 mg/dL 2.3-4.7 604) [id number] 04:34:00 Test Item Value Reference Range Interpretation Comments MAGNESIUM (BEAKER) (test code = 1.7 mg/dL 1.6-2.6 627) CALCIUM, [id number] 04:33:00 Test Item Value Reference Range Interpretation Comments CALCIUM IONIZED (BEAKER) (test 1.03 mmol/L 1.12-1.27 L code = 698) PH, BLOOD (BEAKER) (test code = 7.51 1810) POCT-GLUCOSE [id number] 21:41:00 Test Item Value Reference Range Interpretation Comments POC-GLUCOSE METER 170 mg/dL 70-110 H TESTED AT [facility] 67[address] (BEAKER) (test code = [place] 1538) [id number] POCT-GLUCOSE [id number] 18:32:00 Test Item Value Reference Range Interpretation Comments POC-GLUCOSE METER 121 mg/dL 70-110 H TESTED AT [facility] 67[address] (BEAKER) (test code = [facility] 1538) [id number] POCT-GLUCOSE [id number] 13:17:00 Test Item Value Reference Range Interpretation Comments POC-GLUCOSE METER 138 mg/dL 70-110 H TESTED AT [facility] 67[address] (BEAKER) (test code = [facility] 1538) [id number] BASIC METABOLIC [id number] 11:40:00 Test Item Value Reference Range Interpretation Comments SODIUM (BEAKER) 135 meq/L 136-145 L (test code = 381) POTASSIUM (BEAKER) 3.7 meq/L 3.5-5.1 (test code = 379) CHLORIDE (BEAKER) 103 meq/L 98-107 (test code = 382) CO2 (BEAKER) (test 26 meq/L 22-29 code = 355) BLOOD UREA NITROGEN 22 mg/dL 7-21 H (BEAKER) (test code = 354) CREATININE (BEAKER) 2.16 mg/dL 0.57-1.25 H (test code = 358) GLUCOSE RANDOM 87 mg/dL 70-105 (BEAKER) (test code = 652) CALCIUM (BEAKER) 8.2 mg/dL 8.4-10.2 L (test code = 697) EGFR (BEAKER) (test 27 mL/min/1.73 ESTIMA RONAL GFR IS code = 1092) sq m NOT ACCURATE CREATININE CLEARANCE IN PREDICTING GLOMERULAR FILTRATION RATE . ESTIMATED GFR I S NOT APPLICABLE FOR DIALYSIS PATIEN TS. [id number] 11:39:00 Test Item Value Reference Range Interpretation Comments PHOSPHORUS (BEAKER) (test code = 2.5 mg/dL 2.3-4.7 604) [id number] 11:39:00 Test Item Value Reference Range Interpretation Comments MAGNESIUM (BEAKER) (test code = 1.6 mg/dL 1.6-2.6 627) POCT-GLUCOSE [id number] 08:55:00 Test Item Value Reference Range Interpretation Comments POC-GLUCOSE METER 80 mg/dL 70-110 TESTED AT [facility] 6720 (BEAKER) (test code = [facility] [address] 1538) CALCIUM, [id number] 06:53:00 Test Item Value Reference Range Interpretation Comments CALCIUM IONIZED (BEAKER) (test 0.98 mmol/L 1.12-1.27 L code = 698) PH, BLOOD (BEAKER) (test code = 7.64 1810) CBC W/PLT COUNT & AUTO [id number] 06:53:00 Test Item Value Reference Range Interpretation Comments WHITE BLOOD CELL COUNT (BEAKER) 8.9 K/ L 3.5-10.5 (test code = 775) RED BLOOD CELL COUNT (BEAKER) 2.79 M/ L 3.93-5.22 L (test code = 761) HEMOGLOBIN (BEAKER) (test code = 8.3 GM/DL 11.2-15.7 L 410) HEMATOCRIT (BEAKER) (test code = 26.5 % 34.1-44.9 L 411) MEAN CORPUSCULAR VOLUME (BEAKER) 95.0 fL 79.4-94.8 H (test code = 753) MEAN CORPUSCULAR HEMOGLOBIN 29.7 pg 25.6-32.2 (BEAKER) (test code = 751) MEAN CORPUSCULAR HEMOGLOBIN CONC 31.3 GM/DL 32.2-35.5 L (BEAKER) (test code = 752) RED CELL DISTRIBUTION WIDTH 15.0 % 11.7-14.4 H (BEAKER) (test code = 412) PLATELET COUNT (BEAKER) (test 134 K/CU MM 150-450 L code = 756) MEAN PLATELET VOLUME (BEAKER) 10.6 fL 9.4-12.3 (test code = 754) NUCLEATED RED BLOOD CELLS 0 /100 WBC 0-0 (BEAKER) (test code = 413) NEUTROPHILS RELATIVE PERCENT 77 % (BEAKER) (test code = 429) LYMPHOCYTES RELATIVE PERCENT 6 % (BEAKER) (test code = 430) MONOCYTES RELATIVE PERCENT 9 % (BEAKER) (test code = 431) EOSINOPHILS RELATIVE PERCENT 6 % (BEAKER) (test code = 432) BASOPHILS RELATIVE PERCENT 1 % (BEAKER) (test code = 437) NEUTROPHILS ABSOLUTE COUNT 6.93 K/ L 1.56-6.13 H (BEAKER) (test code = 670) LYMPHOCYTES ABSOLUTE COUNT 0.55 K/ L 1.18-3.74 L (BEAKER) (test code = 414) MONOCYTES ABSOLUTE COUNT (BEAKER) 0.81 K/ L 0.24-0.36 H (test code = 415) EOSINOPHILS ABSOLUTE COUNT 0.53 K/ L 0.04-0.36 H ([facility]) (test code = 416) BASOPHILS ABSOLUTE COUNT (AKER) 0.05 K/ L 0.01-0.08 (test code = 417) IMMATURE GRANULOCYTES-RELATIVE 1 % 0-1 PERCENT (AKER) (test code = 2801) PLATELET AGGREGATION: FUNCTION [id number] 14:31:00 Test Item Value Reference Range Interpretation Comments WEAK ADP 41 % 60-91 L RESULT([facility]) (test code = 2135) PLATELET FUNCTION 40-49% indicates SCREEN INTERP moderate platelet (AKER) (test code = dysfunction 2173) [id number] Jada Freire MD ([facility]) (test code = (electronic signature) 1305) PLATELET COUNT AGG 111 K/CU MM 150-450 L ([facility]) (test code = 2656) Platelet Function Screen results may be falsely low with platelet counts<100,000/cu mm.POCT-GLUCOSE [id number] 13:37:00 Test Item Value Reference Range Interpretation Comments POC-GLUCOSE METER 88 mg/dL 70-110 TESTED AT [facility] 6720 ([facility]) (test code = [facility] [address] 1538) HEPARIN [id number] 13:18:00 Test Item Value Reference Range Interpretation Comments HEPARIN ANTIBODY Positive-See Serotonin Negative A ([facility]) (test code = Release Assay for 646) Confirmation HEPARIN ANTIBODY OD 3.000 <0.400 H ([facility]) (test code = 2659) 4T TOTAL SCORE 2 ([facility]) (test code = 2661) Probability of HIT based on scoring system: 6-8 = High probability; 4-5 = intermediate probability;0-3 = low probabilityPOCT-GLUCOSE [id number] 08:44:00 Test Item Value Reference Range Interpretation Comments POC-GLUCOSE METER 111 mg/dL 70-110 H TESTED AT [facility] 6720 ([facility]) (test code = [facility] 1538) [address] COMPREHENSIVE METABOLIC [id number] 06:34:00 Test Item Value Reference Range Interpretation Comments TOTAL PROTEIN 5.7 gm/dL 6.0-8.3 L ([facility]) (test code = 770) ALBUMIN ([facility]) 2.4 g/dL 3.5-5.0 L (test code = 1145) ALKALINE PHOSPHATASE 115 U/L 40-150 (BEAKER) (test code = 346) BILIRUBIN TOTAL 0.6 mg/dL 0.2-1.2 (BEAKER) (test code = 377) SODIUM (BEAKER) (test 136 meq/L 136-145 code = 381) POTASSIUM (BEAKER) 4.4 meq/L 3.5-5.1 (test code = 379) CHLORIDE (BEAKER) 105 meq/L 98-107 (test code = 382) CO2 (BEAKER) (test 25 meq/L 22-29 code = 355) BLOOD UREA NITROGEN 40 mg/dL 7-21 H (BEAKER) (test code = 354) CREATININE (BEAKER) 3.29 mg/dL 0.57-1.25 H (test code = 358) GLUCOSE RANDOM 91 mg/dL 70-105 (BEAKER) (test code = 652) CALCIUM (BEAKER) 8.4 mg/dL 8.4-10.2 (test code = 697) AST (SGOT) (BEAKER) 16 U/L 5-34 (test code = 353) ALT (SGPT) (BEAKER) 10 U/L 6-55 (test code = 347) EGFR (BEAKER) (test 17 mL/min/1.73 ESTIMA RONAL GFR IS code = 1092) sq m NOT ACCURATE CREATININE CLEARANCE IN PREDICTING GLOMERULAR FILTRATION RATE . ESTIMATED GFR I S NOT APPLICABLE FOR DIALYSIS PATIEN TS. [id number] 05:53:00 Test Item Value Reference Range Interpretation Comments PHOSPHORUS (BEAKER) (test code = 3.6 mg/dL 2.3-4.7 604) [id number] 05:53:00 Test Item Value Reference Range Interpretation Comments MAGNESIUM (BEAKER) (test code = 1.8 mg/dL 1.6-2.6 627) [id number] 05:32:00 Test Item Value Reference Range Interpretation Comments PARTIAL THROMBOPLASTIN TIME 42.2 seconds 22.5-36.0 H (BEAKER) (test code = 760) Draw baseline aPTT prior to infusionCBC W/PLT COUNT & AUTO DIFFERENTIAL 2019-02-12 05:15:00 Test Item Value Reference Range Interpretation Comments WHITE BLOOD CELL COUNT (BEAKER) 9.4 K/ L 3.5-10.5 (test code = 775) RED BLOOD CELL COUNT (BEAKER) 2.76 M/ L 3.93-5.22 L (test code = 761) HEMOGLOBIN (BEAKER) (test code = 8.2 GM/DL 11.2-15.7 L 410) HEMATOCRIT (BEAKER) (test code = 26.5 % 34.1-44.9 L 411) MEAN CORPUSCULAR VOLUME (BEAKER) 96.0 fL 79.4-94.8 H (test code = 753) MEAN CORPUSCULAR HEMOGLOBIN 29.7 pg 25.6-32.2 (BEAKER) (test code = 751) MEAN CORPUSCULAR HEMOGLOBIN CONC 30.9 GM/DL 32.2-35.5 L (BEAKER) (test code = 752) RED CELL DISTRIBUTION WIDTH 15.1 % 11.7-14.4 H (BEAKER) (test code = 412) PLATELET COUNT (BEAKER) (test 114 K/CU MM 150-450 L code = 756) MEAN PLATELET VOLUME (BEAKER) 10.7 fL 9.4-12.3 (test code = 754) NUCLEATED RED BLOOD CELLS 0 /100 WBC 0-0 (BEAKER) (test code = 413) NEUTROPHILS RELATIVE PERCENT 76 % (BEAKER) (test code = 429) LYMPHOCYTES RELATIVE PERCENT 8 % (BEAKER) (test code = 430) MONOCYTES RELATIVE PERCENT 8 % (BEAKER) (test code = 431) EOSINOPHILS RELATIVE PERCENT 7 % (BEAKER) (test code = 432) BASOPHILS RELATIVE PERCENT 0 % (BEAKER) (test code = 437) NEUTROPHILS ABSOLUTE COUNT 7.16 K/ L 1.56-6.13 H (BEAKER) (test code = 670) LYMPHOCYTES ABSOLUTE COUNT 0.75 K/ L 1.18-3.74 L (BEAKER) (test code = 414) MONOCYTES ABSOLUTE COUNT (BEAKER) 0.77 K/ L 0.24-0.36 H (test code = 415) EOSINOPHILS ABSOLUTE COUNT 0.62 K/ L 0.04-0.36 H (BEAKER) (test code = 416) BASOPHILS ABSOLUTE COUNT (BEAKER) 0.04 K/ L 0.01-0.08 (test code = 417) IMMATURE GRANULOCYTES-RELATIVE 0 % 0-1 PERCENT (BEAKER) (test code = 2801) POCT-GLUCOSE [id number] 21:21:00 Test Item Value Reference Range Interpretation Comments POC-GLUCOSE METER 168 mg/dL 70-110 H TESTED AT [place] [address] ([facility]) (test code = [facility] 1538) [id number] POCT-GLUCOSE [id number] 16:46:00 Test Item Value Reference Range Interpretation Comments POC-GLUCOSE METER 135 mg/dL 70-110 H TESTED AT [place] [address] ([facility]) (test code = [facility] 1538) [address] POCT-GLUCOSE [id number] 12:31:00 Test Item Value Reference Range Interpretation Comments POC-GLUCOSE METER 96 mg/dL 70-110 TESTED AT [place] [address] ([facility]) (test code = [facility] [address] 1538) POCT-GLUCOSE [id number] 08:23:00 Test Item Value Reference Range Interpretation Comments POC-GLUCOSE METER 97 mg/dL 70-110 TESTED AT [place] [address] ([facility]) (test code = [facility] [address] 1538) COMPREHENSIVE METABOLIC [id number] 06:20:00 Test Item Value Reference Range Interpretation Comments TOTAL PROTEIN 5.9 gm/dL 6.0-8.3 L (BEAKER) (test code = 770) ALBUMIN (BEAKER) 2.5 g/dL 3.5-5.0 L (test code = 1145) ALKALINE PHOSPHATASE 120 U/L 40-150 (BEAKER) (test code = 346) BILIRUBIN TOTAL 0.7 mg/dL 0.2-1.2 (BEAKER) (test code = 377) SODIUM (BEAKER) (test 136 meq/L 136-145 code = 381) POTASSIUM (BEAKER) 4.4 meq/L 3.5-5.1 (test code = 379) CHLORIDE (BEAKER) 104 meq/L 98-107 (test code = 382) CO2 (BEAKER) (test 27 meq/L 22-29 code = 355) BLOOD UREA NITROGEN 24 mg/dL 7-21 H (BEAKER) (test code = 354) CREATININE (BEAKER) 2.09 mg/dL 0.57-1.25 H (test code = 358) GLUCOSE RANDOM 92 mg/dL 70-105 (BEAKER) (test code = 652) CALCIUM (BEAKER) 8.5 mg/dL 8.4-10.2 (test code = 697) AST (SGOT) (BEAKER) 23 U/L 5-34 (test code = 353) ALT (SGPT) (BEAKER) 12 U/L 6-55 (test code = 347) EGFR (BEAKER) (test 28 mL/min/1.73 ESTIMA RONAL GFR IS code = 1092) sq m NOT ACCURATE CREATININE CLEARANCE IN PREDICTING GLOMERULAR FILTRATION RATE . ESTIMATED GFR I S NOT APPLICABLE FOR DIALYSIS PATIEN TS. [id number] 06:17:00 Test Item Value Reference Range Interpretation Comments PHOSPHORUS (BEAKER) (test code = 3.2 mg/dL 2.3-4.7 604) [id number] 06:17:00 Test Item Value Reference Range Interpretation Comments MAGNESIUM (BEAKER) (test code = 1.6 mg/dL 1.6-2.6 627) CBC W/PLT COUNT & AUTO [id number] 05:54:00 Test Item Value Reference Range Interpretation Comments WHITE BLOOD CELL COUNT (BEAKER) 10.2 K/ L 3.5-10.5 (test code = 775) RED BLOOD CELL COUNT (BEAKER) 2.93 M/ L 3.93-5.22 L (test code = 761) HEMOGLOBIN (BEAKER) (test code = 8.8 GM/DL 11.2-15.7 L 410) HEMATOCRIT (BEAKER) (test code = 27.7 % 34.1-44.9 L 411) MEAN CORPUSCULAR VOLUME (BEAKER) 94.5 fL 79.4-94.8 (test code = 753) MEAN CORPUSCULAR HEMOGLOBIN 30.0 pg 25.6-32.2 (BEAKER) (test code = 751) MEAN CORPUSCULAR HEMOGLOBIN CONC 31.8 GM/DL 32.2-35.5 L (BEAKER) (test code = 752) RED CELL DISTRIBUTION WIDTH 15.2 % 11.7-14.4 H (BEAKER) (test code = 412) PLATELET COUNT (BEAKER) (test code 74 K/CU MM 150-450 L = 756) MEAN PLATELET VOLUME (BEAKER) 11.1 fL 9.4-12.3 (test code = 754) NUCLEATED RED BLOOD CELLS (BEAKER) 0 /100 WBC 0-0 (test code = 413) NEUTROPHILS RELATIVE PERCENT 77 % (BEAKER) (test code = 429) LYMPHOCYTES RELATIVE PERCENT 6 % (BEAKER) (test code = 430) MONOCYTES RELATIVE PERCENT 9 % (BEAKER) (test code = 431) EOSINOPHILS RELATIVE PERCENT 6 % (BEAKER) (test code = 432) BASOPHILS RELATIVE PERCENT 1 % (BEAKER) (test code = 437) NEUTROPHILS ABSOLUTE COUNT 7.86 K/ L 1.56-6.13 H (BEAKER) (test code = 670) LYMPHOCYTES ABSOLUTE COUNT 0.61 K/ L 1.18-3.74 L (BEAKER) (test code = 414) MONOCYTES ABSOLUTE COUNT (BEAKER) 0.86 K/ L 0.24-0.36 H (test code = 415) EOSINOPHILS ABSOLUTE COUNT 0.65 K/ L 0.04-0.36 H (BEAKER) (test code = 416) BASOPHILS ABSOLUTE COUNT (BEAKER) 0.05 K/ L 0.01-0.08 (test code = 417) IMMATURE GRANULOCYTES-RELATIVE 1 % 0-1 PERCENT (BEAKER) (test code = 2801) BLOOD [id number] 02:01:00 Test Item Value Reference Range Interpretation Comments CULTURE (BEAKER) (test No growth in 5 days code = 1095) BLOOD [id number] 02:01:00 Test Item Value Reference Range Interpretation Comments CULTURE (BEAKER) (test No growth in 5 days code = 1095) POCT-GLUCOSE [id number] 21:21:00 Test Item Value Reference Range Interpretation Comments POC-GLUCOSE METER 151 mg/dL 70-110 H TESTED AT [facility] 6720 (BEAKER) (test code = [facility] [place] 1538) [id number] POCT-GLUCOSE [id number] 17:58:00 Test Item Value Reference Range Interpretation Comments POC-GLUCOSE METER 135 mg/dL 70-110 H TESTED AT [facility] 6720 (BEAKER) (test code = [facility] [place] 1538) [address] CT, [id number] 16:34:00FINAL REPORT CT scan of the abdomen [...] groundglass opacities are seen. The liver, spleen, pancreas, and adrenal glands are unremarkable. Both [place] kidneys are atrophic in nature. The gallbladder [...] This is similar to previous.4. Atrophic appearing [place] kidneys.5. Diffuse anasarca. Bilateral pleural effusions. A verbal report wasgiven to the patient's nurse, Kael at the time of dictation. He was instructed to inform the physician. Signed: Leo Trivedi MDReport Verified Date/Time: 02/10/2019 16:34:31 Reading Location: [facility] C013X [facility] Consult Reading Room COMPREHENSIVE METABOLIC PANEL 2019-02-10 05:11:00 Test Item Value Reference Range Interpretation Comments TOTAL PROTEIN 5.6 gm/dL 6.0-8.3 L (BEAKER) (test code = 770) ALBUMIN (BEAKER) 2.4 g/dL 3.5-5.0 L (test code = 1145) ALKALINE PHOSPHATASE 111 U/L 40-150 (BEAKER) (test code = 346) BILIRUBIN TOTAL 0.5 mg/dL 0.2-1.2 (BEAKER) (test code = 377) SODIUM (BEAKER) (test 138 meq/L 136-145 code = 381) POTASSIUM (BEAKER) 4.8 meq/L 3.5-5.1 (test code = 379) CHLORIDE (BEAKER) 106 meq/L 98-107 (test code = 382) CO2 (BEAKER) (test 26 meq/L 22-29 code = 355) BLOOD UREA NITROGEN 27 mg/dL 7-21 H (BEAKER) (test code = 354) CREATININE (BEAKER) 2.47 mg/dL 0.57-1.25 H (test code = 358) GLUCOSE RANDOM 91 mg/dL 70-105 (BEAKER) (test code = 652) CALCIUM (BEAKER) 8.5 mg/dL 8.4-10.2 (test code = 697) AST (SGOT) (BEAKER) 23 U/L 5-34 (test code = 353) ALT (SGPT) (BEAKER) 10 U/L 6-55 (test code = 347) EGFR (BEAKER) (test 23 mL/min/1.73 ESTIMA RONAL GFR IS code = 1092) sq m NOT ACCURATE CREATININE CLEARANCE IN PREDICTING GLOMERULAR FILTRATION RATE . ESTIMATED GFR I S NOT APPLICABLE FOR DIALYSIS PATIEN TS. [id number] 05:09:00 Test Item Value Reference Range Interpretation Comments PHOSPHORUS (BEAKER) (test code = 2.9 mg/dL 2.3-4.7 604) [id number] 05:09:00 Test Item Value Reference Range Interpretation Comments MAGNESIUM (BEAKER) (test code = 1.7 mg/dL 1.6-2.6 627) CBC W/PLT COUNT & AUTO [id number] 04:30:00 Test Item Value Reference Range Interpretation Comments WHITE BLOOD CELL COUNT (BEAKER) 8.7 K/ L 3.5-10.5 (test code = 775) RED BLOOD CELL COUNT (BEAKER) 2.30 M/ L 3.93-5.22 L (test code = 761) HEMOGLOBIN (BEAKER) (test code = 6.9 GM/DL 11.2-15.7 L 410) HEMATOCRIT (BEAKER) (test code = 22.1 % 34.1-44.9 L 411) MEAN CORPUSCULAR VOLUME (BEAKER) 96.1 fL 79.4-94.8 H (test code = 753) MEAN CORPUSCULAR HEMOGLOBIN 30.0 pg 25.6-32.2 (BEAKER) (test code = 751) MEAN CORPUSCULAR HEMOGLOBIN CONC 31.2 GM/DL 32.2-35.5 L (BEAKER) (test code = 752) RED CELL DISTRIBUTION WIDTH 15.1 % 11.7-14.4 H (BEAKER) (test code = 412) PLATELET COUNT (BEAKER) (test code 92 K/CU MM 150-450 L = 756) MEAN PLATELET VOLUME (BEAKER) 10.7 fL 9.4-12.3 (test code = 754) NUCLEATED RED BLOOD CELLS (BEAKER) 0 /100 WBC 0-0 (test code = 413) NEUTROPHILS RELATIVE PERCENT 72 % (BEAKER) (test code = 429) LYMPHOCYTES RELATIVE PERCENT 10 % (BEAKER) (test code = 430) MONOCYTES RELATIVE PERCENT 11 % (BEAKER) (test code = 431) EOSINOPHILS RELATIVE PERCENT 6 % (BEAKER) (test code = 432) BASOPHILS RELATIVE PERCENT 0 % (BEAKER) (test code = 437) NEUTROPHILS ABSOLUTE COUNT 6.31 K/ L 1.56-6.13 H (BEAKER) (test code = 670) LYMPHOCYTES ABSOLUTE COUNT 0.90 K/ L 1.18-3.74 L (BEAKER) (test code = 414) MONOCYTES ABSOLUTE COUNT (BEAKER) 0.94 K/ L 0.24-0.36 H (test code = 415) EOSINOPHILS ABSOLUTE COUNT 0.49 K/ L 0.04-0.36 H (BEAKER) (test code = 416) BASOPHILS ABSOLUTE COUNT (BEAKER) 0.03 K/ L 0.01-0.08 (test code = 417) IMMATURE GRANULOCYTES-RELATIVE 1 % 0-1 PERCENT (BEAKER) (test code = 2801) POCT-GLUCOSE [id number] 21:29:00 Test Item Value Reference Range Interpretation Comments POC-GLUCOSE METER 146 mg/dL 70-110 H TESTED AT [facility] 6720 [facility] 1538) [id number] POCT-GLUCOSE [id number] 17:41:00 Test Item Value Reference Range Interpretation Comments POC-GLUCOSE METER 122 mg/dL 70-110 H TESTED AT [facility] 67 [facility] (test code = [facility] [place] [facility] 1538) [address] POCT-GLUCOSE [id number] 12:40:00 Test Item Value Reference Range Interpretation Comments POC-GLUCOSE METER 108 mg/dL 70-110 TESTED AT [place] [address] ([facility] (test code = [facility] 1538) [address] POCT-GLUCOSE [id number] 07:13:00 Test Item Value Reference Range Interpretation Comments POC-GLUCOSE METER 92 mg/dL 70-110 TESTED AT [place] [address] ([facility] (test code = [facility] [place] [facility] [address] 1538) B-TYPE NATRIURETIC FACTOR (BNP)2019-02-09 05:36:00 Test Item Value Reference Range Interpretation Comments B-TYPE NATRIURETIC PEPTIDE 3204 pg/mL 0-100 H (BEAKER) (test code = 700) COMPREHENSIVE METABOLIC [id number] 04:57:00 Test Item Value Reference Range Interpretation Comments TOTAL PROTEIN 5.8 gm/dL 6.0-8.3 L (BEAKER) (test code = 770) ALBUMIN (BEAKER) 2.4 g/dL 3.5-5.0 L (test code = 1145) ALKALINE PHOSPHATASE 110 U/L 40-150 (BEAKER) (test code = 346) BILIRUBIN TOTAL 0.5 mg/dL 0.2-1.2 (BEAKER) (test code = 377) SODIUM (BEAKER) (test 136 meq/L 136-145 code = 381) POTASSIUM (BEAKER) 4.9 meq/L 3.5-5.1 (test code = 379) CHLORIDE (BEAKER) 102 meq/L 98-107 (test code = 382) CO2 (BEAKER) (test 29 meq/L 22-29 code = 355) BLOOD UREA NITROGEN 37 mg/dL 7-21 H (BEAKER) (test code = 354) CREATININE (BEAKER) 3.21 mg/dL 0.57-1.25 H (test code = 358) GLUCOSE RANDOM 99 mg/dL 70-105 (BEAKER) (test code = 652) CALCIUM (BEAKER) 8.5 mg/dL 8.4-10.2 (test code = 697) AST (SGOT) (BEAKER) 15 U/L 5-34 (test code = 353) ALT (SGPT) (BEAKER) 7 U/L 6-55 (test code = 347) EGFR (BEAKER) (test 17 mL/min/1.73 ESTIMA RONAL GFR IS code = 1092) sq m NOT ACCURATE CREATININE CLEARANCE IN PREDICTING GLOMERULAR FILTRATION RATE . ESTIMATED GFR I S NOT APPLICABLE FOR DIALYSIS PATIEN TS. CALCIUM, [id number] 04:36:00 Test Item Value Reference Range Interpretation Comments CALCIUM IONIZED (BEAKER) (test 1.09 mmol/L 1.12-1.27 L code = 698) PH, BLOOD (BEAKER) (test code = 7.44 1810) [id number] 04:29:00 Test Item Value Reference Range Interpretation Comments PHOSPHORUS (BEAKER) (test code = 2.9 mg/dL 2.3-4.7 604) [id number] 04:29:00 Test Item Value Reference Range Interpretation Comments MAGNESIUM (BEAKER) (test code = 1.9 mg/dL 1.6-2.6 627) CBC W/PLT COUNT & AUTO [id number] 03:19:00 Test Item Value Reference Range Interpretation Comments WHITE BLOOD CELL COUNT (BEAKER) 10.2 K/ L 3.5-10.5 (test code = 775) RED BLOOD CELL COUNT (BEAKER) 2.45 M/ L 3.93-5.22 L (test code = 761) HEMOGLOBIN (BEAKER) (test code = 7.3 GM/DL 11.2-15.7 L 410) HEMATOCRIT (BEAKER) (test code = 23.4 % 34.1-44.9 L 411) MEAN CORPUSCULAR VOLUME (BEAKER) 95.5 fL 79.4-94.8 H (test code = 753) MEAN CORPUSCULAR HEMOGLOBIN 29.8 pg 25.6-32.2 (BEAKER) (test code = 751) MEAN CORPUSCULAR HEMOGLOBIN CONC 31.2 GM/DL 32.2-35.5 L (BEAKER) (test code = 752) RED CELL DISTRIBUTION WIDTH 14.8 % 11.7-14.4 H (BEAKER) (test code = 412) PLATELET COUNT (BEAKER) (test 135 K/CU MM 150-450 L code = 756) MEAN PLATELET VOLUME (BEAKER) 10.3 fL 9.4-12.3 (test code = 754) NUCLEATED RED BLOOD CELLS 0 /100 WBC 0-0 (BEAKER) (test code = 413) NEUTROPHILS RELATIVE PERCENT 76 % (BEAKER) (test code = 429) LYMPHOCYTES RELATIVE PERCENT 9 % (BEAKER) (test code = 430) MONOCYTES RELATIVE PERCENT 9 % (BEAKER) (test code = 431) EOSINOPHILS RELATIVE PERCENT 5 % (BEAKER) (test code = 432) BASOPHILS RELATIVE PERCENT 0 % (BEAKER) (test code = 437) NEUTROPHILS ABSOLUTE COUNT 7.77 K/ L 1.56-6.13 H (BEAKER) (test code = 670) LYMPHOCYTES ABSOLUTE COUNT 0.90 K/ L 1.18-3.74 L (BEAKER) (test code = 414) MONOCYTES ABSOLUTE COUNT (BEAKER) 0.94 K/ L 0.24-0.36 H (test code = 415) EOSINOPHILS ABSOLUTE COUNT 0.49 K/ L 0.04-0.36 H (BEAKER) (test code = 416) BASOPHILS ABSOLUTE COUNT (BEAKER) 0.04 K/ L 0.01-0.08 (test code = 417) IMMATURE GRANULOCYTES-RELATIVE 1 % 0-1 PERCENT (BEAKER) (test code = 2801) POCT-GLUCOSE [id number] 21:29:00 Test Item Value Reference Range Interpretation Comments POC-GLUCOSE METER 147 mg/dL 70-110 H TESTED AT [place] [address] ([facility] (test code = IL[facility] 1538) [id number] POCT-GLUCOSE [id number] 13:45:00 Test Item Value Reference Range Interpretation Comments POC-GLUCOSE METER 117 mg/dL 70-110 H TESTED AT [place] [address] (BEAKER) (test code = IL[facility] 1538) [address] POCT-GLUCOSE [id number] 07:11:00 Test Item Value Reference Range Interpretation Comments POC-GLUCOSE METER 100 mg/dL 70-110 TESTED AT [facility] 6720 (BEAKER) (test code = [place] 1538) [address] COMPREHENSIVE METABOLIC [id number] 05:53:00 Test Item Value Reference Range Interpretation Comments TOTAL PROTEIN 5.8 gm/dL 6.0-8.3 L (BEAKER) (test code = 770) ALBUMIN (BEAKER) 2.4 g/dL 3.5-5.0 L (test code = 1145) ALKALINE PHOSPHATASE 103 U/L 40-150 (BEAKER) (test code = 346) BILIRUBIN TOTAL 0.5 mg/dL 0.2-1.2 (BEAKER) (test code = 377) SODIUM (BEAKER) (test 138 meq/L 136-145 code = 381) POTASSIUM (BEAKER) 4.5 meq/L 3.5-5.1 (test code = 379) CHLORIDE (BEAKER) 102 meq/L 98-107 (test code = 382) CO2 (BEAKER) (test 30 meq/L 22-29 H code = 355) BLOOD UREA NITROGEN 25 mg/dL 7-21 H (BEAKER) (test code = 354) CREATININE (BEAKER) 2.40 mg/dL 0.57-1.25 H (test code = 358) GLUCOSE RANDOM 97 mg/dL 70-105 (BEAKER) (test code = 652) CALCIUM (BEAKER) 8.3 mg/dL 8.4-10.2 L (test code = 697) AST (SGOT) (BEAKER) 16 U/L 5-34 (test code = 353) ALT (SGPT) (BEAKER) < U/L 6-55 L (test code = 347) EGFR (BEAKER) (test 24 mL/min/1.73 ESTIMA RONAL GFR IS code = 1092) sq m NOT ACCURATE CREATININE CLEARANCE IN PREDICTING GLOMERULAR FILTRATION RATE . ESTIMATED GFR I S NOT APPLICABLE FOR DIALYSIS PATIEN TS. [id number] 05:51:00 Test Item Value Reference Range Interpretation Comments PHOSPHORUS (BEAKER) (test code = 2.8 mg/dL 2.3-4.7 604) [id number] 05:51:00 Test Item Value Reference Range Interpretation Comments MAGNESIUM (BEAKER) (test code = 1.8 mg/dL 1.6-2.6 627) CBC W/PLT COUNT & AUTO [id number] 05:01:00 Test Item Value Reference Range Interpretation Comments WHITE BLOOD CELL COUNT (BEAKER) 11.5 K/ L 3.5-10.5 H (test code = 775) RED BLOOD CELL COUNT (BEAKER) 2.53 M/ L 3.93-5.22 L (test code = 761) HEMOGLOBIN (BEAKER) (test code = 7.5 GM/DL 11.2-15.7 L 410) HEMATOCRIT (BEAKER) (test code = 23.8 % 34.1-44.9 L 411) MEAN CORPUSCULAR VOLUME (BEAKER) 94.1 fL 79.4-94.8 (test code = 753) MEAN CORPUSCULAR HEMOGLOBIN 29.6 pg 25.6-32.2 (BEAKER) (test code = 751) MEAN CORPUSCULAR HEMOGLOBIN CONC 31.5 GM/DL 32.2-35.5 L (BEAKER) (test code = 752) RED CELL DISTRIBUTION WIDTH 15.0 % 11.7-14.4 H (BEAKER) (test code = 412) PLATELET COUNT (BEAKER) (test 116 K/CU MM 150-450 L code = 756) MEAN PLATELET VOLUME (BEAKER) 10.4 fL 9.4-12.3 (test code = 754) NUCLEATED RED BLOOD CELLS 0 /100 WBC 0-0 (BEAKER) (test code = 413) NEUTROPHILS RELATIVE PERCENT 80 % (BEAKER) (test code = 429) LYMPHOCYTES RELATIVE PERCENT 6 % (BEAKER) (test code = 430) MONOCYTES RELATIVE PERCENT 8 % (BEAKER) (test code = 431) EOSINOPHILS RELATIVE PERCENT 5 % (BEAKER) (test code = 432) BASOPHILS RELATIVE PERCENT 0 % (BEAKER) (test code = 437) NEUTROPHILS ABSOLUTE COUNT 9.23 K/ L 1.56-6.13 H (BEAKER) (test code = 670) LYMPHOCYTES ABSOLUTE COUNT 0.73 K/ L 1.18-3.74 L (BEAKER) (test code = 414) MONOCYTES ABSOLUTE COUNT (BEAKER) 0.92 K/ L 0.24-0.36 H (test code = 415) EOSINOPHILS ABSOLUTE COUNT 0.54 K/ L 0.04-0.36 H (BEAKER) (test code = 416) BASOPHILS ABSOLUTE COUNT (BEAKER) 0.05 K/ L 0.01-0.08 (test code = 417) IMMATURE GRANULOCYTES-RELATIVE 1 % 0-1 PERCENT (BEAKER) (test code = 2801) POCT-GLUCOSE [id number] 21:31:00 Test Item Value Reference Range Interpretation Comments POC-GLUCOSE METER 115 mg/dL 70-110 H TESTED AT [facility] 6720 ([facility]) (test code = ILDA [place] 1538) [id number] HEMOGLOBIN AND [id number] 13:26:00 Test Item Value Reference Range Interpretation Comments HEMOGLOBIN (BEAKER) (test code = 8.3 GM/DL 11.2-15.7 L 410) HEMATOCRIT (BEAKER) (test code = 26.1 % 34.1-44.9 L 411) CREATININE, RANDOM [id number] 10:02:00 Test Item Value Reference Range Interpretation Comments CREATININE URINE (BEAKER) 19.0 mg/dL Qc ok in unity (test code = 375) Reference Range: No NormalsPOCT-GLUCOSE [id number] 08:47:00 Test Item Value Reference Range Interpretation Comments POC-GLUCOSE METER 125 mg/dL 70-110 H TESTED AT [facility] 6720 ([facility]) (test code = [facility] [place] 1538) [id number] COMPREHENSIVE METABOLIC [id number] 06:12:00 Test Item Value Reference Range Interpretation Comments TOTAL PROTEIN 5.9 gm/dL 6.0-8.3 L (BEAKER) (test code = 770) ALBUMIN (BEAKER) 2.5 g/dL 3.5-5.0 L (test code = 1145) ALKALINE PHOSPHATASE 95 U/L 40-150 (BEAKER) (test code = 346) BILIRUBIN TOTAL 0.6 mg/dL 0.2-1.2 (BEAKER) (test code = 377) SODIUM (BEAKER) (test 135 meq/L 136-145 L code = 381) POTASSIUM (BEAKER) 4.7 meq/L 3.5-5.1 (test code = 379) CHLORIDE (BEAKER) 104 meq/L 98-107 (test code = 382) CO2 (BEAKER) (test 27 meq/L 22-29 code = 355) BLOOD UREA NITROGEN 36 mg/dL 7-21 H (BEAKER) (test code = 354) CREATININE (BEAKER) 3.35 mg/dL 0.57-1.25 H (test code = 358) GLUCOSE RANDOM 99 mg/dL 70-105 (BEAKER) (test code = 652) CALCIUM (BEAKER) 8.6 mg/dL 8.4-10.2 (test code = 697) AST (SGOT) (BEAKER) 13 U/L 5-34 (test code = 353) ALT (SGPT) (BEAKER) < U/L 6-55 L (test code = 347) EGFR (BEAKER) (test 16 mL/min/1.73 ESTIMA RONAL GFR IS code = 1092) sq m NOT ACCURATE CREATININE CLEARANCE IN PREDICTING GLOMERULAR FILTRATION RATE . ESTIMATED GFR I S NOT APPLICABLE FOR DIALYSIS PATIEN TS. [id number] 05:59:00 Test Item Value Reference Range Interpretation Comments PHOSPHORUS (BEAKER) (test code = 3.1 mg/dL 2.3-4.7 604) [id number] 05:59:00 Test Item Value Reference Range Interpretation Comments MAGNESIUM (BEAKER) (test code = 2.1 mg/dL 1.6-2.6 627) CBC W/PLT COUNT & AUTO [id number] 05:43:00 Test Item Value Reference Range Interpretation Comments WHITE BLOOD CELL COUNT (BEAKER) 12.2 K/ L 3.5-10.5 H (test code = 775) RED BLOOD CELL COUNT (BEAKER) 2.65 M/ L 3.93-5.22 L (test code = 761) HEMOGLOBIN (BEAKER) (test code = 7.9 GM/DL 11.2-15.7 L 410) HEMATOCRIT (BEAKER) (test code = 24.4 % 34.1-44.9 L 411) MEAN CORPUSCULAR VOLUME (BEAKER) 92.1 fL 79.4-94.8 (test code = 753) MEAN CORPUSCULAR HEMOGLOBIN 29.8 pg 25.6-32.2 (BEAKER) (test code = 751) MEAN CORPUSCULAR HEMOGLOBIN CONC 32.4 GM/DL 32.2-35.5 (BEAKER) (test code = 752) RED CELL DISTRIBUTION WIDTH 15.0 % 11.7-14.4 H (BEAKER) (test code = 412) PLATELET COUNT (BEAKER) (test 162 K/CU MM 150-450 code = 756) MEAN PLATELET VOLUME (BEAKER) 10.1 fL 9.4-12.3 (test code = 754) NUCLEATED RED BLOOD CELLS 0 /100 WBC 0-0 (BEAKER) (test code = 413) NEUTROPHILS RELATIVE PERCENT 80 % (BEAKER) (test code = 429) LYMPHOCYTES RELATIVE PERCENT 7 % (BEAKER) (test code = 430) MONOCYTES RELATIVE PERCENT 8 % (BEAKER) (test code = 431) EOSINOPHILS RELATIVE PERCENT 4 % (BEAKER) (test code = 432) BASOPHILS RELATIVE PERCENT 1 % (BEAKER) (test code = 437) NEUTROPHILS ABSOLUTE COUNT 9.71 K/ L 1.56-6.13 H (BEAKER) (test code = 670) LYMPHOCYTES ABSOLUTE COUNT 0.90 K/ L 1.18-3.74 L (BEAKER) (test code = 414) MONOCYTES ABSOLUTE COUNT (BEAKER) 0.93 K/ L 0.24-0.36 H (test code = 415) EOSINOPHILS ABSOLUTE COUNT 0.53 K/ L 0.04-0.36 H (BEAKER) (test code = 416) BASOPHILS ABSOLUTE COUNT (BEAKER) 0.06 K/ L 0.01-0.08 (test code = 417) IMMATURE GRANULOCYTES-RELATIVE 1 % 0-1 PERCENT (BEAKER) (test code = 2801) PROTEIN, RANDOM [id number] 05:03:00 Test Item Value Reference Range Interpretation Comments PROTEIN, URINE (BEAKER) (test code 178 mg/dL 0-14 H = 1569) POCT-GLUCOSE [id number] 20:57:00 Test Item Value Reference Range Interpretation Comments POC-GLUCOSE METER 176 mg/dL 70-110 H TESTED AT [facility] 67[address] (BEAKER) (test code = ILDA Mercer [place] 1539) [id number] HEMOGLOBIN AND [id number] 14:38:00 Test Item Value Reference Range Interpretation Comments HEMOGLOBIN (BEAKER) (test code = 7.7 GM/DL 11.2-15.7 L 410) HEMATOCRIT (BEAKER) (test code = 24.0 % 34.1-44.9 L 411) POCT-GLUCOSE [id number] 14:15:00 Test Item Value Reference Range Interpretation Comments POC-GLUCOSE METER 137 mg/dL 70-110 H TESTED AT [facility] [address] (BEAKER) (test code = ILDA Mercer [facility] 1538) [id number] URINALYSIS W/ [id number] 10:27:00 Test Item Value Reference Range Interpretation Comments COLOR (BEAKER) (test code = 470) Yellow CLARITY (BEAKER) (test code = 469) Clear SPECIFIC GRAVITY UA (BEAKER) (test 1.006 1.001-1.035 code = 468) PH UA (BEAKER) (test code = 467) 8.5 5.0-8.0 H PROTEIN UA (BEAKER) (test code = 600 mg/dL Negative A 464) GLUCOSE UA (BEAKER) (test code = 300 mg/dL Negative A 365) KETONES UA (BEAKER) (test code = Negative Negative 371) BILIRUBIN UA (BEAKER) (test code = Negative Negative 462) BLOOD UA (BEAKER) (test code = 461) Negative Negative NITRITE UA (BEAKER) (test code = Negative Negative 465) LEUKOCYTE ESTERASE UA (BEAKER) Negative Negative (test code = 466) UROBILINOGEN UA (BEAKER) (test code 0.2 mg/dL 0.2-1.0 = 463) RBC UA (BEAKER) (test code = 519) 2 /HPF WBC UA (BEAKER) (test code = 520) 2 /HPF SQUAMOUS EPITHELIAL (BEAKER) (test 1 /HPF code = 516) SOURCE(BEAKER) (test code = 2795) POCT-GLUCOSE [id number] 09:22:00 Test Item Value Reference Range Interpretation Comments POC-GLUCOSE METER 167 mg/dL 70-110 H TEST[facility] AT [place] [address] [facility] (test code = ILDA Mercer [facility] 1538) [address] RAD, CHEST, 1 VIEW, NON [id number] 08:40:00Reason for exam:->post extubationShould this be performed at the bedside?->YesFINAL REPORT TECHNIQUE: Frontal chest radiograph dated 02/06/2019. CLINICAL HIS TORY: Post extubation COMPARISON STUDY: Chest radiograph dated 02/05/2019 IMPRESSION: Right-sided vascular line is unchanged. There is improved aeration of the lung bases. Lungs are clear. No pleural effusion or pneumothorax. Cardiomediastinal silhouette is normal in size. No pulmonary edema. No fracture. Signed: Jagruti [place] Verified Date/Time: 02/06/2019 08:40:46 Reading Location: [facility] Radiology Reading Room CALCIUM, [id number] 06:33:00 Test Item Value Reference Range Interpretation Comments CALCIUM IONIZED (BEAKER) (test 1.05 mmol/L 1.12-1.27 L code = 698) PH, BLOOD (BEAKER) (test code = 7.52 1810) COMPREHENSIVE METABOLIC [id number] 06:22:00 Test Item Value Reference Range Interpretation Comments TOTAL PROTEIN 5.6 gm/dL 6.0-8.3 L (BEAKER) (test code = 770) ALBUMIN (BEAKER) 2.3 g/dL 3.5-5.0 L (test code = 1145) ALKALINE PHOSPHATASE 90 U/L 40-150 (BEAKER) (test code = 346) BILIRUBIN TOTAL 0.6 mg/dL 0.2-1.2 (BEAKER) (test code = 377) SODIUM (BEAKER) (test 139 meq/L 136-145 code = 381) POTASSIUM (BEAKER) 4.3 meq/L 3.5-5.1 (test code = 379) CHLORIDE (BEAKER) 105 meq/L 98-107 (test code = 382) CO2 (BEAKER) (test 28 meq/L 22-29 code = 355) BLOOD UREA NITROGEN 26 mg/dL 7-21 H (BEAKER) (test code = 354) CREATININE (BEAKER) 2.52 mg/dL 0.57-1.25 H (test code = 358) GLUCOSE RANDOM 92 mg/dL 70-105 (BEAKER) (test code = 652) CALCIUM (BEAKER) 8.4 mg/dL 8.4-10.2 (test code = 697) AST (SGOT) (BEAKER) 15 U/L 5-34 (test code = 353) ALT (SGPT) (BEAKER) 6 U/L 6-55 (test code = 347) EGFR (BEAKER) (test 23 mL/min/1.73 ESTIMA RONAL GFR IS code = 1092) sq m NOT ACCURATE CREATININE CLEARANCE IN PREDICTING GLOMERULAR FILTRATION RATE . ESTIMATED GFR I S NOT APPLICABLE FOR DIALYSIS PATIEN TS. [id number] 06:16:00 Test Item Value Reference Range Interpretation Comments PHOSPHORUS (BEAKER) (test code = 2.3 mg/dL 2.3-4.7 604) [id number] 06:16:00 Test Item Value Reference Range Interpretation Comments MAGNESIUM (BEAKER) (test code = 1.6 mg/dL 1.6-2.6 627) CBC W/PLT COUNT & AUTO [id number] 05:53:00 Test Item Value Reference Range Interpretation Comments WHITE BLOOD CELL COUNT (BEAKER) 13.6 K/ L 3.5-10.5 H (test code = 775) RED BLOOD CELL COUNT (BEAKER) 2.60 M/ L 3.93-5.22 L (test code = 761) HEMOGLOBIN (BEAKER) (test code = 7.7 GM/DL 11.2-15.7 L 410) HEMATOCRIT (BEAKER) (test code = 23.7 % 34.1-44.9 L 411) MEAN CORPUSCULAR VOLUME (BEAKER) 91.2 fL 79.4-94.8 (test code = 753) MEAN CORPUSCULAR HEMOGLOBIN 29.6 pg 25.6-32.2 (BEAKER) (test code = 751) MEAN CORPUSCULAR HEMOGLOBIN CONC 32.5 GM/DL 32.2-35.5 (BEAKER) (test code = 752) RED CELL DISTRIBUTION WIDTH 14.9 % 11.7-14.4 H (BEAKER) (test code = 412) PLATELET COUNT (BEAKER) (test 143 K/CU MM 150-450 L code = 756) MEAN PLATELET VOLUME (BEAKER) 10.5 fL 9.4-12.3 (test code = 754) NUCLEATED RED BLOOD CELLS 0 /100 WBC 0-0 (BEAKER) (test code = 413) NEUTROPHILS RELATIVE PERCENT 80 % (BEAKER) (test code = 429) LYMPHOCYTES RELATIVE PERCENT 9 % (BEAKER) (test code = 430) MONOCYTES RELATIVE PERCENT 6 % (BEAKER) (test code = 431) EOSINOPHILS RELATIVE PERCENT 4 % (BEAKER) (test code = 432) BASOPHILS RELATIVE PERCENT 1 % (BEAKER) (test code = 437) NEUTROPHILS ABSOLUTE COUNT 10.84 K/ L 1.56-6.13 H (BEAKER) (test code = 670) LYMPHOCYTES ABSOLUTE COUNT 1.16 K/ L 1.18-3.74 L (BEAKER) (test code = 414) MONOCYTES ABSOLUTE COUNT (BEAKER) 0.85 K/ L 0.24-0.36 H (test code = 415) EOSINOPHILS ABSOLUTE COUNT 0.56 K/ L 0.04-0.36 H (BEAKER) (test code = 416) BASOPHILS ABSOLUTE COUNT (BEAKER) 0.07 K/ L 0.01-0.08 (test code = 417) IMMATURE GRANULOCYTES-RELATIVE 1 % 0-1 PERCENT (BEAKER) (test code = 2801) POCT-GLUCOSE [id number] 20:58:00 Test Item Value Reference Range Interpretation Comments POC-GLUCOSE METER 114 mg/dL 70-110 H TESTED AT [place] [address] ([facility]) (test code = [facility] [place] [facility] 1538) [id number] POCT-GLUCOSE [id number] 11:44:00 Test Item Value Reference Range Interpretation Comments POC-GLUCOSE METER 160 mg/dL 70-110 H TESTED AT [place] [address] ([facility]) (test code = [facility] 1538) [address] RAD, CHEST, 1 VIEW, NON [id number] 08:50:00Reason for exam:->post extubationShould this be performed at the bedside?->YesFINAL REPORT Follow up Chest radiograph Clinical History: Post extubationCompa rison: February 04, 2019Views: One Chest x-ray:The cardiac and mediastinal silhouettes are unchanged. There is no evidence of a pneumothorax. There is no evidence of a pleural effusion. There is no evidence of overt cardiac failure. There is no evidence of a focal parenchymal opacity. A tunneled right internal jugular Ildefonso split dialysis catheter visualized. Impression:Mild increase in pulmonaryvascular congestion Signed: Kavitha Dalton Verified Date/Time: 02/05/2019 08:50:57 Reading Location: [facility] Radiology Reading Room POCT-GLUCOSE [id number] 07:33:00 Test Item Value Reference Range Interpretation Comments POC-GLUCOSE METER 147 mg/dL 70-110 H TESTED AT [facility] 6720 (BEAKER) (test code = [place] 1538) [id number] 06:56:00 Test Item Value Reference Range Interpretation Comments PHOSPHORUS (BEAKER) (test code = 2.9 mg/dL 2.3-4.7 604) [id number] 06:56:00 Test Item Value Reference Range Interpretation Comments MAGNESIUM (BEAKER) (test code = 1.7 mg/dL 1.6-2.6 627) COMPREHENSIVE METABOLIC [id number] 06:56:00 Test Item Value Reference Range Interpretation Comments TOTAL PROTEIN 6.0 gm/dL 6.0-8.3 (BEAKER) (test code = 770) ALBUMIN (BEAKER) 2.5 g/dL 3.5-5.0 L (test code = 1145) ALKALINE PHOSPHATASE 92 U/L 40-150 (BEAKER) (test code = 346) BILIRUBIN TOTAL 0.7 mg/dL 0.2-1.2 (BEAKER) (test code = 377) SODIUM (BEAKER) (test 138 meq/L 136-145 code = 381) POTASSIUM (BEAKER) 4.5 meq/L 3.5-5.1 (test code = 379) CHLORIDE (BEAKER) 105 meq/L 98-107 (test code = 382) CO2 (BEAKER) (test 28 meq/L 22-29 code = 355) BLOOD UREA NITROGEN 36 mg/dL 7-21 H (BEAKER) (test code = 354) CREATININE (BEAKER) 3.47 mg/dL 0.57-1.25 H (test code = 358) GLUCOSE RANDOM 128 mg/dL 70-105 H (BEAKER) (test code = 652) CALCIUM (BEAKER) 8.7 mg/dL 8.4-10.2 (test code = 697) AST (SGOT) (BEAKER) 17 U/L 5-34 (test code = 353) ALT (SGPT) (BEAKER) 8 U/L 6-55 (test code = 347) EGFR (BEAKER) (test 16 mL/min/1.73 ESTIMA RONAL GFR IS code = 1092) sq m NOT ACCURATE CREATININE CLEARANCE IN PREDICTING GLOMERULAR FILTRATION RATE . ESTIMATED GFR I S NOT APPLICABLE FOR DIALYSIS PATIEN TS. CBC W/PLT COUNT & AUTO [id number] 06:16:00 Test Item Value Reference Range Interpretation Comments WHITE BLOOD CELL COUNT (BEAKER) 18.1 K/ L 3.5-10.5 H (test code = 775) RED BLOOD CELL COUNT (BEAKER) 2.84 M/ L 3.93-5.22 L (test code = 761) HEMOGLOBIN (BEAKER) (test code = 8.5 GM/DL 11.2-15.7 L 410) HEMATOCRIT (BEAKER) (test code = 25.4 % 34.1-44.9 L 411) MEAN CORPUSCULAR VOLUME (BEAKER) 89.4 fL 79.4-94.8 (test code = 753) MEAN CORPUSCULAR HEMOGLOBIN 29.9 pg 25.6-32.2 (BEAKER) (test code = 751) MEAN CORPUSCULAR HEMOGLOBIN CONC 33.5 GM/DL 32.2-35.5 (BEAKER) (test code = 752) RED CELL DISTRIBUTION WIDTH 15.0 % 11.7-14.4 H (BEAKER) (test code = 412) PLATELET COUNT (BEAKER) (test 183 K/CU MM 150-450 code = 756) MEAN PLATELET VOLUME (BEAKER) 10.0 fL 9.4-12.3 (test code = 754) NUCLEATED RED BLOOD CELLS 0 /100 WBC 0-0 (BEAKER) (test code = 413) NEUTROPHILS RELATIVE PERCENT 85 % (BEAKER) (test code = 429) LYMPHOCYTES RELATIVE PERCENT 7 % (BEAKER) (test code = 430) MONOCYTES RELATIVE PERCENT 5 % (BEAKER) (test code = 431) EOSINOPHILS RELATIVE PERCENT 3 % (BEAKER) (test code = 432) BASOPHILS RELATIVE PERCENT 0 % (BEAKER) (test code = 437) NEUTROPHILS ABSOLUTE COUNT 15.36 K/ L 1.56-6.13 H (BEAKER) (test code = 670) LYMPHOCYTES ABSOLUTE COUNT 1.17 K/ L 1.18-3.74 L (BEAKER) (test code = 414) MONOCYTES ABSOLUTE COUNT (BEAKER) 0.87 K/ L 0.24-0.36 H (test code = 415) EOSINOPHILS ABSOLUTE COUNT 0.53 K/ L 0.04-0.36 H (BEAKER) (test code = 416) BASOPHILS ABSOLUTE COUNT ([facility]) 0.06 K/ L 0.01-0.08 (test code = 417) IMMATURE GRANULOCYTES-RELATIVE 1 % 0-1 PERCENT ([facility]) (test code = 2801) HEMOGLOBIN AND [id number] 05:56:00 Test Item Value Reference Range Interpretation Comments HEMOGLOBIN ([facility]) (test code = 8.5 GM/DL 11.2-15.7 L 410) HEMATOCRIT ([facility]) (test code = 25.4 % 34.1-44.9 L 411) Post transfusionPOCT-GLUCOSE [id number] 21:25:00 Test Item Value Reference Range Interpretation Comments POC-GLUCOSE METER 185 mg/dL 70-110 H TESTED AT [place] [address] ([facility]) (test code = [place] [facility] 1538) [id number] POCT-GLUCOSE [id number] 17:17:00 Test Item Value Reference Range Interpretation Comments POC-GLUCOSE METER 155 mg/dL 70-110 H TESTED AT [place] [address] ([facility]) (test code = [place] [facility] 1538) [address] POCT-GLUCOSE [id number] 12:07:00 Test Item Value Reference Range Interpretation Comments POC-GLUCOSE METER 123 mg/dL 70-110 H TESTED AT [place] [address] ([facility]) (test code = [place] [facility] 1538) [address] POCT-GLUCOSE [id number] 08:04:00 Test Item Value Reference Range Interpretation Comments POC-GLUCOSE METER 108 mg/dL 70-110 TESTED AT [place] [address] ([facility]) (test code = [place] [facility] 1538) [address] RAD, CHEST, 1 VIEW, NON [id number] 07:45:00Reason for exam:->post extubationShould this be performed at the bedside?->YesFINAL REPORT RAD, CHEST, 1 VIEW, NON DEPT INDICATION: post extubation COMPARIS ON: Prior day's exam FINDINGS: Portable frontal view of the chest. IMPRESSION: Support Lines: Right-sided dialysis catheter tip overlies the atriocaval junction Lungs and pleura: Trace left effusionis unchanged. Remainder of the lungs are predominantly clear. No pneumothorax.Heart and mediastinum:Stable contours. Additional findings: None. Signed: Dory Pride MDReport Verified Date/Time:02/04/2019 07:45:17 Reading Location: [address] Neuro Reading Room CBC W/PLT COUNT & AUTO [id number] 07:01:00 Test Item Value Reference Range Interpretation Comments WHITE BLOOD CELL COUNT (BEAKER) 13.6 K/ L 3.5-10.5 H (test code = 775) RED BLOOD CELL COUNT (BEAKER) 2.17 M/ L 3.93-5.22 L (test code = 761) HEMOGLOBIN (BEAKER) (test code = 6.4 GM/DL 11.2-15.7 L 410) HEMATOCRIT (BEAKER) (test code = 20.0 % 34.1-44.9 L 411) MEAN CORPUSCULAR VOLUME (BEAKER) 92.2 fL 79.4-94.8 (test code = 753) MEAN CORPUSCULAR HEMOGLOBIN 29.5 pg 25.6-32.2 (BEAKER) (test code = 751) MEAN CORPUSCULAR HEMOGLOBIN CONC 32.0 GM/DL 32.2-35.5 L (BEAKER) (test code = 752) RED CELL DISTRIBUTION WIDTH 15.0 % 11.7-14.4 H (BEAKER) (test code = 412) PLATELET COUNT (BEAKER) (test 145 K/CU MM 150-450 L code = 756) MEAN PLATELET VOLUME (BEAKER) 10.1 fL 9.4-12.3 (test code = 754) NUCLEATED RED BLOOD CELLS 0 /100 WBC 0-0 (BEAKER) (test code = 413) NEUTROPHILS RELATIVE PERCENT 81 % (BEAKER) (test code = 429) LYMPHOCYTES RELATIVE PERCENT 8 % (BEAKER) (test code = 430) MONOCYTES RELATIVE PERCENT 7 % (BEAKER) (test code = 431) EOSINOPHILS RELATIVE PERCENT 3 % (BEAKER) (test code = 432) BASOPHILS RELATIVE PERCENT 0 % (BEAKER) (test code = 437) NEUTROPHILS ABSOLUTE COUNT 10.93 K/ L 1.56-6.13 H (BEAKER) (test code = 670) LYMPHOCYTES ABSOLUTE COUNT 1.11 K/ L 1.18-3.74 L (BEAKER) (test code = 414) MONOCYTES ABSOLUTE COUNT (BEAKER) 0.97 K/ L 0.24-0.36 H (test code = 415) EOSINOPHILS ABSOLUTE COUNT 0.44 K/ L 0.04-0.36 H (BEAKER) (test code = 416) BASOPHILS ABSOLUTE COUNT (BEAKER) 0.04 K/ L 0.01-0.08 (test code = 417) IMMATURE GRANULOCYTES-RELATIVE 1 % 0-1 PERCENT (BEAKER) (test code = 2801) CBC W/PLT COUNT & AUTO [id number] 05:24:00 Test Item Value Reference Range Interpretation Comments WHITE BLOOD CELL COUNT (BEAKER) 13.7 K/ L 3.5-10.5 H (test code = 775) RED BLOOD CELL COUNT (BEAKER) 2.22 M/ L 3.93-5.22 L (test code = 761) HEMOGLOBIN (BEAKER) (test code = 6.5 GM/DL 11.2-15.7 L 410) HEMATOCRIT (BEAKER) (test code = 20.2 % 34.1-44.9 L 411) MEAN CORPUSCULAR VOLUME (BEAKER) 91.0 fL 79.4-94.8 (test code = 753) MEAN CORPUSCULAR HEMOGLOBIN 29.3 pg 25.6-32.2 (BEAKER) (test code = 751) MEAN CORPUSCULAR HEMOGLOBIN CONC 32.2 GM/DL 32.2-35.5 (BEAKER) (test code = 752) RED CELL DISTRIBUTION WIDTH 15.1 % 11.7-14.4 H (BEAKER) (test code = 412) PLATELET COUNT (BEAKER) (test 151 K/CU MM 150-450 code = 756) MEAN PLATELET VOLUME (BEAKER) 10.5 fL 9.4-12.3 (test code = 754) NUCLEATED RED BLOOD CELLS 0 /100 WBC 0-0 (BEAKER) (test code = 413) NEUTROPHILS RELATIVE PERCENT 80 % (BEAKER) (test code = 429) LYMPHOCYTES RELATIVE PERCENT 8 % (BEAKER) (test code = 430) MONOCYTES RELATIVE PERCENT 7 % (BEAKER) (test code = 431) EOSINOPHILS RELATIVE PERCENT 3 % (BEAKER) (test code = 432) BASOPHILS RELATIVE PERCENT 0 % (BEAKER) (test code = 437) NEUTROPHILS ABSOLUTE COUNT 10.99 K/ L 1.56-6.13 H (BEAKER) (test code = 670) LYMPHOCYTES ABSOLUTE COUNT 1.11 K/ L 1.18-3.74 L (BEAKER) (test code = 414) MONOCYTES ABSOLUTE COUNT (BEAKER) 0.98 K/ L 0.24-0.36 H (test code = 415) EOSINOPHILS ABSOLUTE COUNT 0.45 K/ L 0.04-0.36 H (BEAKER) (test code = 416) BASOPHILS ABSOLUTE COUNT (BEAKER) 0.04 K/ L 0.01-0.08 (test code = 417) IMMATURE GRANULOCYTES-RELATIVE 1 % 0-1 PERCENT (BEAKER) (test code = 2801) COMPREHENSIVE METABOLIC [id number] 05:11:00 Test Item Value Reference Range Interpretation Comments TOTAL PROTEIN 5.5 gm/dL 6.0-8.3 L (BEAKER) (test code = 770) ALBUMIN (BEAKER) 2.3 g/dL 3.5-5.0 L (test code = 1145) ALKALINE PHOSPHATASE 84 U/L 40-150 (BEAKER) (test code = 346) BILIRUBIN TOTAL 0.5 mg/dL 0.2-1.2 (BEAKER) (test code = 377) SODIUM (BEAKER) (test 141 meq/L 136-145 code = 381) POTASSIUM (BEAKER) 4.3 meq/L 3.5-5.1 (test code = 379) CHLORIDE (BEAKER) 106 meq/L 98-107 (test code = 382) CO2 (BEAKER) (test 29 meq/L 22-29 code = 355) BLOOD UREA NITROGEN 20 mg/dL 7-21 (BEAKER) (test code = 354) CREATININE (BEAKER) 2.39 mg/dL 0.57-1.25 H (test code = 358) GLUCOSE RANDOM 89 mg/dL 70-105 (BEAKER) (test code = 652) CALCIUM (BEAKER) 8.4 mg/dL 8.4-10.2 (test code = 697) AST (SGOT) (BEAKER) 16 U/L 5-34 (test code = 353) ALT (SGPT) (BEAKER) 7 U/L 6-55 (test code = 347) EGFR (BEAKER) (test 24 mL/min/1.73 ESTIMA RONAL GFR IS code = 1092) sq m NOT ACCURATE CREATININE CLEARANCE IN PREDICTING GLOMERULAR FILTRATION RATE . ESTIMATED GFR I S NOT APPLICABLE FOR DIALYSIS PATIEN TS. [id number] 05:08:00 Test Item Value Reference Range Interpretation Comments PHOSPHORUS (BEAKER) (test code = 2.4 mg/dL 2.3-4.7 604) [id number] 05:08:00 Test Item Value Reference Range Interpretation Comments MAGNESIUM (BEAKER) (test code = 1.7 mg/dL 1.6-2.6 627) POCT-GLUCOSE [id number] 21:25:00 Test Item Value Reference Range Interpretation Comments POC-GLUCOSE METER 248 mg/dL 70-110 H TESTED AT [facility] 67 ([facility]) [facility] 1538) [address] POCT-GLUCOSE [id number] 11:33:00 Test Item Value Reference Range Interpretation Comments POC-GLUCOSE METER 168 mg/dL 70-110 H TESTED AT [place] [address] ([facility]) ([facility] 1538) [id number] CBC W/PLT COUNT & AUTO [id number] 09:20:00 Test Item Value Reference Range Interpretation Comments WHITE BLOOD CELL COUNT (BEAKER) 19.4 K/ L 3.5-10.5 H (test code = 775) RED BLOOD CELL COUNT (BEAKER) 2.74 M/ L 3.93-5.22 L (test code = 761) HEMOGLOBIN (BEAKER) (test code = 8.3 GM/DL 11.2-15.7 L 410) HEMATOCRIT (BEAKER) (test code = 24.5 % 34.1-44.9 L 411) MEAN CORPUSCULAR VOLUME (BEAKER) 89.4 fL 79.4-94.8 (test code = 753) MEAN CORPUSCULAR HEMOGLOBIN 30.3 pg 25.6-32.2 (BEAKER) (test code = 751) MEAN CORPUSCULAR HEMOGLOBIN CONC 33.9 GM/DL 32.2-35.5 (BEAKER) (test code = 752) RED CELL DISTRIBUTION WIDTH 15.2 % 11.7-14.4 H (BEAKER) (test code = 412) PLATELET COUNT (BEAKER) (test 194 K/CU MM 150-450 code = 756) MEAN PLATELET VOLUME (BEAKER) 9.2 fL 9.4-12.3 L (test code = 754) NUCLEATED RED BLOOD CELLS 0 /100 WBC 0-0 (BEAKER) (test code = 413) NEUTROPHILS RELATIVE PERCENT 87 % (BEAKER) (test code = 429) LYMPHOCYTES RELATIVE PERCENT 4 % (BEAKER) (test code = 430) MONOCYTES RELATIVE PERCENT 6 % (BEAKER) (test code = 431) EOSINOPHILS RELATIVE PERCENT 2 % (BEAKER) (test code = 432) BASOPHILS RELATIVE PERCENT 0 % (BEAKER) (test code = 437) NEUTROPHILS ABSOLUTE COUNT 16.93 K/ L 1.56-6.13 H (BEAKER) (test code = 670) LYMPHOCYTES ABSOLUTE COUNT 0.80 K/ L 1.18-3.74 L (BEAKER) (test code = 414) MONOCYTES ABSOLUTE COUNT (BEAKER) 1.07 K/ L 0.24-0.36 H (test code = 415) EOSINOPHILS ABSOLUTE COUNT 0.31 K/ L 0.04-0.36 (BEAKER) (test code = 416) BASOPHILS ABSOLUTE COUNT (BEAKER) 0.07 K/ L 0.01-0.08 (test code = 417) IMMATURE GRANULOCYTES-RELATIVE 1 % 0-1 PERCENT (BEAKER) (test code = 2801) B-TYPE NATRIURETIC FACTOR (BNP)2019-02-03 07:54:00 Test Item Value Reference Range Interpretation Comments B-TYPE NATRIURETIC PEPTIDE 3301 pg/mL 0-100 H (BEAKER) (test code = 700) COMPREHENSIVE METABOLIC [id number] 07:31:00 Test Item Value Reference Range Interpretation Comments TOTAL PROTEIN 7.1 gm/dL 6.0-8.3 (BEAKER) (test code = 770) ALBUMIN (BEAKER) 2.9 g/dL 3.5-5.0 L (test code = 1145) ALKALINE PHOSPHATASE 102 U/L 40-150 (BEAKER) (test code = 346) BILIRUBIN TOTAL 0.9 mg/dL 0.2-1.2 (BEAKER) (test code = 377) SODIUM (BEAKER) (test 139 meq/L 136-145 code = 381) POTASSIUM (BEAKER) 4.5 meq/L 3.5-5.1 (test code = 379) CHLORIDE (BEAKER) 104 meq/L 98-107 (test code = 382) CO2 (BEAKER) (test 28 meq/L 22-29 code = 355) BLOOD UREA NITROGEN 31 mg/dL 7-21 H (BEAKER) (test code = 354) CREATININE (BEAKER) 3.72 mg/dL 0.57-1.25 H (test code = 358) GLUCOSE RANDOM 150 mg/dL 70-105 H (BEAKER) (test code = 652) CALCIUM (BEAKER) 9.4 mg/dL 8.4-10.2 (test code = 697) AST (SGOT) (BEAKER) 19 U/L 5-34 (test code = 353) ALT (SGPT) (BEAKER) < U/L 6-55 L (test code = 347) EGFR (BEAKER) (test 15 mL/min/1.73 ESTIMA RONAL GFR IS code = 1092) sq m NOT ACCURATE CREATININE CLEARANCE IN PREDICTING GLOMERULAR FILTRATION RATE . ESTIMATED GFR I S NOT APPLICABLE FOR DIALYSIS PATIEN TS. RAD, CHEST, 1 VIEW, NON [id number] 07:31:00Reason for exam:->post extubationShould this be performed at the bedside?->YesFINAL REPORT Chest, one view. HISTORY: post extubation COMPARISON: Radiograph from 02/02/2019 IMPRESSION: Unchanged positioning of a right IJ tunneled hemodialysis catheter. Interstitial edema with mild left basilar subsegmental atelectasis. There is likely a trace, layering right pleural effusion. No pneumothorax. The cardiac silhouette is unchanged. No acute bony abnormality. Signed: Lyndsay Samayoa MDReport Verified Date/Time: 02/03/2019 07:31:20 Reading Location: [facility] B1 [id number] Body Reading Room [id number] 07:29:00 Test Item Value Reference Range Interpretation Comments PHOSPHORUS (BEAKER) (test code = 3.5 mg/dL 2.3-4.7 604) [id number] 07:29:00 Test Item Value Reference Range Interpretation Comments MAGNESIUM (BEAKER) (test code = 2.1 mg/dL 1.6-2.6 627) CBC W/PLT COUNT & AUTO [id number] 06:50:00 Test Item Value Reference Range Interpretation Comments WHITE BLOOD CELL COUNT (BEAKER) 21.1 K/ L 3.5-10.5 H (test code = 775) RED BLOOD CELL COUNT (BEAKER) 3.06 M/ L 3.93-5.22 L (test code = 761) HEMOGLOBIN (BEAKER) (test code = 9.0 GM/DL 11.2-15.7 L 410) HEMATOCRIT (BEAKER) (test code = 27.7 % 34.1-44.9 L 411) MEAN CORPUSCULAR VOLUME (BEAKER) 90.5 fL 79.4-94.8 (test code = 753) MEAN CORPUSCULAR HEMOGLOBIN 29.4 pg 25.6-32.2 (BEAKER) (test code = 751) MEAN CORPUSCULAR HEMOGLOBIN CONC 32.5 GM/DL 32.2-35.5 (BEAKER) (test code = 752) RED CELL DISTRIBUTION WIDTH 15.5 % 11.7-14.4 H (BEAKER) (test code = 412) PLATELET COUNT (BEAKER) (test 214 K/CU MM 150-450 code = 756) MEAN PLATELET VOLUME (BEAKER) 10.2 fL 9.4-12.3 (test code = 754) NUCLEATED RED BLOOD CELLS 0 /100 WBC 0-0 (BEAKER) (test code = 413) NEUTROPHILS RELATIVE PERCENT 88 % (BEAKER) (test code = 429) LYMPHOCYTES RELATIVE PERCENT 3 % (BEAKER) (test code = 430) MONOCYTES RELATIVE PERCENT 5 % (BEAKER) (test code = 431) EOSINOPHILS RELATIVE PERCENT 2 % (BEAKER) (test code = 432) BASOPHILS RELATIVE PERCENT 0 % (BEAKER) (test code = 437) NEUTROPHILS ABSOLUTE COUNT 18.67 K/ L 1.56-6.13 H (BEAKER) (test code = 670) LYMPHOCYTES ABSOLUTE COUNT 0.72 K/ L 1.18-3.74 L (BEAKER) (test code = 414) MONOCYTES ABSOLUTE COUNT (BEAKER) 1.09 K/ L 0.24-0.36 H (test code = 415) EOSINOPHILS ABSOLUTE COUNT 0.33 K/ L 0.04-0.36 (BEAKER) (test code = 416) BASOPHILS ABSOLUTE COUNT (BEAKER) 0.09 K/ L 0.01-0.08 H (test code = 417) IMMATURE GRANULOCYTES-RELATIVE 1 % 0-1 PERCENT (BEAKER) (test code = 2801) CALCIUM, [id number] 06:30:00 Test Item Value Reference Range Interpretation Comments CALCIUM IONIZED (BEAKER) (test 1.19 mmol/L 1.12-1.27 code = 698) PH, BLOOD (BEAKER) (test code = 7.36 1810) POCT-GLUCOSE [id number] 21:28:00 Test Item Value Reference Range Interpretation Comments POC-GLUCOSE METER 149 mg/dL 70-110 H TESTED AT [facility] [facility] (test code = ILDA Mercer [facility] 1538) [id number] POCT-GLUCOSE [id number] 12:40:00 Test Item Value Reference Range Interpretation Comments POC-GLUCOSE METER 171 mg/dL 70-110 H TESTED AT [facility] [address] ([facility]) (test code = ILDA Mercer [facility] 1538) [id number] POCT-GLUCOSE [id number] 09:54:00 Test Item Value Reference Range Interpretation Comments POC-GLUCOSE METER 148 mg/dL 70-110 H TESTED AT [facility] [address] ([facility]) (test code = ILDA Mercer [facility] 1538) [id number] RAD, CHEST, 1 VIEW, NON [id number] 08:14:00Reason for exam:->post extubationShould this be performed at the bedside?->YesFINAL REPORT RAD, CHEST, 1 VIEW, NON DEPT INDICATION: post extubation COMPARIS ON: Prior day's exam FINDINGS: Portable frontal view of the chest. IMPRESSION: Limited by patient rotation.Support Lines: Stable right IJ dual-lumen central venous catheter. Lungs and pleura: No new consolidation. Trace bilateral effusions. No pneumothorax.Heart and mediastinum: Stable contours. Additional findings: Redemonstration of at least moderate volume stool admixed with contrast at the splenic flexure. Signed: JR Mercado Robert MDReport Verified Date/Time: 02/02/2019 08:14:25 Reading Location: [facility] Radiology Reading Room Electronically signed by: JULIO Davidson 02/02/2019 08:14 AMCOMPREHENSIVE METABOLIC [id number] 06:59:00 Test Item Value Reference Range Interpretation Comments TOTAL PROTEIN 5.6 gm/dL 6.0-8.3 L (BEAKER) (test code = 770) ALBUMIN (BEAKER) 2.3 g/dL 3.5-5.0 L (test code = 1145) ALKALINE PHOSPHATASE 78 U/L 40-150 (BEAKER) (test code = 346) BILIRUBIN TOTAL 0.4 mg/dL 0.2-1.2 (BEAKER) (test code = 377) SODIUM (BEAKER) (test 142 meq/L 136-145 code = 381) POTASSIUM (BEAKER) 4.3 meq/L 3.5-5.1 (test code = 379) CHLORIDE (BEAKER) 107 meq/L 98-107 (test code = 382) CO2 (BEAKER) (test 30 meq/L 22-29 H code = 355) BLOOD UREA NITROGEN 24 mg/dL 7-21 H (BEAKER) (test code = 354) CREATININE (BEAKER) 2.88 mg/dL 0.57-1.25 H (test code = 358) GLUCOSE RANDOM 98 mg/dL 70-105 (BEAKER) (test code = 652) CALCIUM (BEAKER) 8.7 mg/dL 8.4-10.2 (test code = 697) AST (SGOT) (BEAKER) 16 U/L 5-34 (test code = 353) ALT (SGPT) (BEAKER) 7 U/L 6-55 (test code = 347) EGFR (BEAKER) (test 20 mL/min/1.73 ESTIMA RONAL GFR IS code = 1092) sq m NOT ACCURATE CREATININE CLEARANCE IN PREDICTING GLOMERULAR FILTRATION RATE . ESTIMATED GFR I S NOT APPLICABLE FOR DIALYSIS PATIEN TS. CBC W/PLT COUNT & AUTO [id number] 06:50:00 Test Item Value Reference Range Interpretation Comments WHITE BLOOD CELL COUNT (BEAKER) 12.6 K/ L 3.5-10.5 H (test code = 775) RED BLOOD CELL COUNT (BEAKER) 2.13 M/ L 3.93-5.22 L (test code = 761) HEMOGLOBIN (BEAKER) (test code = 6.2 GM/DL 11.2-15.7 L 410) HEMATOCRIT (BEAKER) (test code = 20.0 % 34.1-44.9 L 411) MEAN CORPUSCULAR VOLUME (BEAKER) 93.9 fL 79.4-94.8 (test code = 753) MEAN CORPUSCULAR HEMOGLOBIN 29.1 pg 25.6-32.2 (BEAKER) (test code = 751) MEAN CORPUSCULAR HEMOGLOBIN CONC 31.0 GM/DL 32.2-35.5 L (BEAKER) (test code = 752) RED CELL DISTRIBUTION WIDTH 15.5 % 11.7-14.4 H (BEAKER) (test code = 412) PLATELET COUNT (BEAKER) (test 146 K/CU MM 150-450 L code = 756) MEAN PLATELET VOLUME (BEAKER) 10.4 fL 9.4-12.3 (test code = 754) NUCLEATED RED BLOOD CELLS 0 /100 WBC 0-0 (BEAKER) (test code = 413) NEUTROPHILS RELATIVE PERCENT 79 % (BEAKER) (test code = 429) LYMPHOCYTES RELATIVE PERCENT 8 % (BEAKER) (test code = 430) MONOCYTES RELATIVE PERCENT 9 % (BEAKER) (test code = 431) EOSINOPHILS RELATIVE PERCENT 2 % (BEAKER) (test code = 432) BASOPHILS RELATIVE PERCENT 0 % (BEAKER) (test code = 437) NEUTROPHILS ABSOLUTE COUNT 10.03 K/ L 1.56-6.13 H (BEAKER) (test code = 670) LYMPHOCYTES ABSOLUTE COUNT 0.97 K/ L 1.18-3.74 L (BEAKER) (test code = 414) MONOCYTES ABSOLUTE COUNT (BEAKER) 1.16 K/ L 0.24-0.36 H (test code = 415) EOSINOPHILS ABSOLUTE COUNT 0.29 K/ L 0.04-0.36 (BEAKER) (test code = 416) BASOPHILS ABSOLUTE COUNT (BEAKER) 0.04 K/ L 0.01-0.08 (test code = 417) IMMATURE GRANULOCYTES-RELATIVE 1 % 0-1 PERCENT (BEAKER) (test code = 2801) [id number] 06:49:00 Test Item Value Reference Range Interpretation Comments PHOSPHORUS (BEAKER) (test code = 3.0 mg/dL 2.3-4.7 604) [id number] 06:49:00 Test Item Value Reference Range Interpretation Comments MAGNESIUM (BEAKER) (test code = 1.6 mg/dL 1.6-2.6 627) CALCIUM, [id number] 06:34:00 Test Item Value Reference Range Interpretation Comments CALCIUM IONIZED (BEAKER) (test 1.11 mmol/L 1.12-1.27 L code = 698) PH, BLOOD ([facility]) (test code = 7.43 1810) CALCIUM, [id number] 06:33:00 Test Item Value Reference Range Interpretation Comments CALCIUM IONIZED (BEAKER) (test 1.10 mmol/L 1.12-1.27 L code = 698) PH, BLOOD ([facility]) (test code = 7.42 1810) POCT-GLUCOSE [id number] 21:12:00 Test Item Value Reference Range Interpretation Comments POC-GLUCOSE METER 190 mg/dL 70-110 H TESTED AT [place] [address] ([facility]) (test code = [facility] [place] [facility] 1538) [id number] POCT-GLUCOSE [id number] 17:34:00 Test Item Value Reference Range Interpretation Comments POC-GLUCOSE METER 108 mg/dL 70-110 TESTED AT [place] [address] ([facility]) (test code = [facility] [place] [facility] 1538) [id number] POCT-GLUCOSE [id number] 12:20:00 Test Item Value Reference Range Interpretation Comments POC-GLUCOSE METER 113 mg/dL 70-110 H TESTED AT [place] [address] ([facility]) (test code = [facility] [place] [facility] 1538) [id number] POCT-GLUCOSE [id number] 10:24:00 Test Item Value Reference Range Interpretation Comments POC-GLUCOSE METER 139 mg/dL 70-110 H TESTED AT [place] [address] ([facility]) (test code = [facility] 1538) [id number] CBC W/PLT COUNT & AUTO [id number] 10:11:00 Test Item Value Reference Range Interpretation Comments WHITE BLOOD CELL COUNT ([facility]) 14.7 K/ L 3.5-10.5 H (test code = 775) RED BLOOD CELL COUNT ([facility]) 2.54 M/ L 3.93-5.22 L (test code = 761) HEMOGLOBIN ([facility]) (test code = 7.3 GM/DL 11.2-15.7 L 410) HEMATOCRIT (BEAKER) (test code = 23.7 % 34.1-44.9 L 411) MEAN CORPUSCULAR VOLUME (BEAKER) 93.3 fL 79.4-94.8 (test code = 753) MEAN CORPUSCULAR HEMOGLOBIN 28.7 pg 25.6-32.2 (BEAKER) (test code = 751) MEAN CORPUSCULAR HEMOGLOBIN CONC 30.8 GM/DL 32.2-35.5 L (BEAKER) (test code = 752) RED CELL DISTRIBUTION WIDTH 15.1 % 11.7-14.4 H (BEAKER) (test code = 412) PLATELET COUNT (BEAKER) (test 108 K/CU MM 150-450 L code = 756) MEAN PLATELET VOLUME (BEAKER) 10.0 fL 9.4-12.3 (test code = 754) NUCLEATED RED BLOOD CELLS 0 /100 WBC 0-0 (BEAKER) (test code = 413) NEUTROPHILS RELATIVE PERCENT 87 % (BEAKER) (test code = 429) LYMPHOCYTES RELATIVE PERCENT 5 % (BEAKER) (test code = 430) MONOCYTES RELATIVE PERCENT 5 % (BEAKER) (test code = 431) EOSINOPHILS RELATIVE PERCENT 2 % (BEAKER) (test code = 432) BASOPHILS RELATIVE PERCENT 0 % (BEAKER) (test code = 437) NEUTROPHILS ABSOLUTE COUNT 12.69 K/ L 1.56-6.13 H (BEAKER) (test code = 670) LYMPHOCYTES ABSOLUTE COUNT 0.73 K/ L 1.18-3.74 L (BEAKER) (test code = 414) MONOCYTES ABSOLUTE COUNT (BEAKER) 0.66 K/ L 0.24-0.36 H (test code = 415) EOSINOPHILS ABSOLUTE COUNT 0.32 K/ L 0.04-0.36 (BEAKER) (test code = 416) BASOPHILS ABSOLUTE COUNT (BEAKER) 0.03 K/ L 0.01-0.08 (test code = 417) IMMATURE GRANULOCYTES-RELATIVE 2 % 0-1 H PERCENT (BEAKER) (test code = 2801) RAD, CHEST, 1 VIEW, NON [id number] 08:14:00Reason for exam:->post extubationShould this be performed at the bedside?->YesFINAL REPORT RAD, CHEST, 1 VIEW, NON DEPT INDICATION: post extubation COMPARIS ON: Prior day's exam FINDINGS: Portable frontal view of the chest. IMPRESSION: Support Lines: Stable right IJ central venous catheter. Lungs and pleura: No new consolidation. No pneumothorax.Heart and mediastinum: Stable contours. Additional findings: None. Signed: JR Mercado Robert MDReportVerified Date/Time: 02/01/2019 08:14:17 Reading Location: [facility] Radiology Reading Room POCT-GLUCOSE [id number] 07:27:00 Test Item Value Reference Range Interpretation Comments POC-GLUCOSE METER 129 mg/dL 70-110 H TESTED AT [place] [address] ([facility]) (test code = [place] [facility] 1538) [id number] POCT-GLUCOSE [id number] 21:16:00 Test Item Value Reference Range Interpretation Comments POC-GLUCOSE METER 247 mg/dL 70-110 H TESTED AT [place] [address] ([facility]) (test code = [place] [facility] 1538) [id number] RAD, CHEST, 1 VIEW, NON [id number] 07:38:00Reason for exam:->post extubationShould this be performed at the bedside?->YesFINAL REPORT RAD, CHEST, 1 VIEW, NON DEPT INDICATION: post extubation COMPARIS ON: January 30, 2019 FINDINGS: Portable frontal view of the chest. IMPRESSION: Support Lines: Unchanged positioning of right IJ dual-lumen central venous catheter. Lungs and pleura: Clear lungs. No effusion. No pneumothorax.Heart and mediastinum: Unremarkable. Additional findings: None. Signed: JR Mercado Robert MDReport Verified Date/Time: 01/31/2019 07:38:40 Reading Location: [facility] Radiology Reading Room CALCIUM, [id number] 06:46:00 Test Item Value Reference Range Interpretation Comments CALCIUM IONIZED ([facility]) (test 0.98 mmol/L 1.12-1.27 L code = 698) PH, BLOOD ([facility]) (test code = 7.55 1810) COMPREHENSIVE METABOLIC [id number] 05:31:00 Test Item Value Reference Range Interpretation Comments TOTAL PROTEIN 5.6 gm/dL 6.0-8.3 L (BEAKER) (test code = 770) ALBUMIN (BEAKER) 2.4 g/dL 3.5-5.0 L (test code = 1145) ALKALINE PHOSPHATASE 80 U/L 40-150 (BEAKER) (test code = 346) BILIRUBIN TOTAL 0.4 mg/dL 0.2-1.2 (BEAKER) (test code = 377) SODIUM (BEAKER) (test 142 meq/L 136-145 code = 381) POTASSIUM (BEAKER) 4.0 meq/L 3.5-5.1 (test code = 379) CHLORIDE (BEAKER) 108 meq/L 98-107 H (test code = 382) CO2 (BEAKER) (test 26 meq/L 22-29 code = 355) BLOOD UREA NITROGEN 25 mg/dL 7-21 H (BEAKER) (test code = 354) CREATININE (BEAKER) 2.63 mg/dL 0.57-1.25 H (test code = 358) GLUCOSE RANDOM 96 mg/dL 70-105 (BEAKER) (test code = 652) CALCIUM (BEAKER) 8.4 mg/dL 8.4-10.2 (test code = 697) AST (SGOT) (BEAKER) 22 U/L 5-34 (test code = 353) ALT (SGPT) (BEAKER) 7 U/L 6-55 (test code = 347) EGFR (BEAKER) (test 22 mL/min/1.73 ESTIMA RONAL GFR IS code = 1092) sq m NOT ACCURATE CREATININE CLEARANCE IN PREDICTING GLOMERULAR FILTRATION RATE . ESTIMATED GFR I S NOT APPLICABLE FOR DIALYSIS PATIEN TS. [id number] 05:30:00 Test Item Value Reference Range Interpretation Comments PHOSPHORUS (BEAKER) (test code = 2.9 mg/dL 2.3-4.7 604) [id number] 05:30:00 Test Item Value Reference Range Interpretation Comments MAGNESIUM (BEAKER) (test code = 1.6 mg/dL 1.6-2.6 627) CBC W/PLT COUNT & AUTO [id number] 05:23:00 Test Item Value Reference Range Interpretation Comments WHITE BLOOD CELL COUNT (BEAKER) 12.2 K/ L 3.5-10.5 H (test code = 775) RED BLOOD CELL COUNT (BEAKER) 2.59 M/ L 3.93-5.22 L (test code = 761) HEMOGLOBIN (BEAKER) (test code = 7.6 GM/DL 11.2-15.7 L 410) HEMATOCRIT (BEAKER) (test code = 23.7 % 34.1-44.9 L 411) MEAN CORPUSCULAR VOLUME (BEAKER) 91.5 fL 79.4-94.8 (test code = 753) MEAN CORPUSCULAR HEMOGLOBIN 29.3 pg 25.6-32.2 (BEAKER) (test code = 751) MEAN CORPUSCULAR HEMOGLOBIN CONC 32.1 GM/DL 32.2-35.5 L (BEAKER) (test code = 752) RED CELL DISTRIBUTION WIDTH 15.2 % 11.7-14.4 H (BEAKER) (test code = 412) PLATELET COUNT (BEAKER) (test 171 K/CU MM 150-450 code = 756) MEAN PLATELET VOLUME (BEAKER) 10.7 fL 9.4-12.3 (test code = 754) NUCLEATED RED BLOOD CELLS 0 /100 WBC 0-0 (BEAKER) (test code = 413) NEUTROPHILS RELATIVE PERCENT 78 % (BEAKER) (test code = 429) LYMPHOCYTES RELATIVE PERCENT 7 % (BEAKER) (test code = 430) MONOCYTES RELATIVE PERCENT 9 % (BEAKER) (test code = 431) EOSINOPHILS RELATIVE PERCENT 3 % (BEAKER) (test code = 432) BASOPHILS RELATIVE PERCENT 0 % (BEAKER) (test code = 437) NEUTROPHILS ABSOLUTE COUNT 9.59 K/ L 1.56-6.13 H (BEAKER) (test code = 670) LYMPHOCYTES ABSOLUTE COUNT 0.90 K/ L 1.18-3.74 L (BEAKER) (test code = 414) MONOCYTES ABSOLUTE COUNT (BEAKER) 1.07 K/ L 0.24-0.36 H (test code = 415) EOSINOPHILS ABSOLUTE COUNT 0.40 K/ L 0.04-0.36 H (BEAKER) (test code = 416) BASOPHILS ABSOLUTE COUNT (BEAKER) 0.04 K/ L 0.01-0.08 (test code = 417) IMMATURE GRANULOCYTES-RELATIVE 2 % 0-1 H PERCENT (PARAG) (test code = 2801) POCT-GLUCOSE [id number] 21:52:00 Test Item Value Reference Range Interpretation Comments POC-GLUCOSE METER 146 mg/dL 70-110 H TESTED AT [facility] 67[address] ([facility]) (test code = [place] [facility] 1538) [address] POCT-GLUCOSE [id number] 18:13:00 Test Item Value Reference Range Interpretation Comments POC-GLUCOSE METER 168 mg/dL 70-110 H TESTED AT [facility] 67[address] ([facility]) (test code = [place] [facility] 1538) [address] RAD, CHEST, 1 VIEW, NON [id number] 07:08:00Reason for exam:->post extubationShould this be performed at the bedside?->YesFINAL REPORT RAD, CHEST, 1 VIEW, NON DEPT INDICATION: post extubation COMPARIS ON: Prior day's exam FINDINGS: Portable frontal view of the chest. IMPRESSION: Support Lines: Stable right IJ dual-lumen central venous catheter. Lungs and pleura: No consolidation or effusion. No pneumothorax.Heart and mediastinum: Stable contours. Additional findings: None. Signed: JR Mercado Robert MDReport Verified Date/Time: 01/30/2019 07:08:13 Reading Location: [facility] Radiology Reading Room [id number] 05:34:00 Test Item Value Reference Range Interpretation Comments FERRITIN (BEAKER) (test code = 361) 606 ng/mL 5-275 H CALCIUM, [id number] 05:26:00 Test Item Value Reference Range Interpretation Comments CALCIUM IONIZED (BEAKER) (test 1.03 mmol/L 1.12-1.27 L code = 698) PH, BLOOD (BEAKER) (test code = 7.47 1810) IRON, TIBC, % SAT. (WITHOUT FERRITIN)[id number] 05:13:00 Test Item Value Reference Range Interpretation Comments IRON (BEAKER) (test code = 547) 44.0 ug/dL 40.0-160.0 TOTAL IRON BINDING CAPACITY 138 ug/dL 250-450 L (BEAKER) (test code = 769) IRON % SATURATION (2) (BEAKER) 32 % 20-55 (test code = 2590) COMPREHENSIVE METABOLIC [id number] 05:09:00 Test Item Value Reference Range Interpretation Comments TOTAL PROTEIN 5.8 gm/dL 6.0-8.3 L (BEAKER) (test code = 770) ALBUMIN (BEAKER) 2.5 g/dL 3.5-5.0 L (test code = 1145) ALKALINE PHOSPHATASE 85 U/L 40-150 (BEAKER) (test code = 346) BILIRUBIN TOTAL 0.6 mg/dL 0.2-1.2 (BEAKER) (test code = 377) SODIUM (BEAKER) (test 136 meq/L 136-145 code = 381) POTASSIUM (BEAKER) 4.1 meq/L 3.5-5.1 (test code = 379) CHLORIDE (BEAKER) 103 meq/L 98-107 (test code = 382) CO2 (BEAKER) (test 24 meq/L 22-29 code = 355) BLOOD UREA NITROGEN 53 mg/dL 7-21 H (BEAKER) (test code = 354) CREATININE (BEAKER) 4.89 mg/dL 0.57-1.25 H (test code = 358) GLUCOSE RANDOM 98 mg/dL 70-105 (BEAKER) (test code = 652) CALCIUM (BEAKER) 8.4 mg/dL 8.4-10.2 (test code = 697) AST (SGOT) (BEAKER) 29 U/L 5-34 (test code = 353) ALT (SGPT) (BEAKER) 6 U/L 6-55 (test code = 347) EGFR (BEAKER) (test 11 mL/min/1.73 ESTIMA RONAL GFR IS code = 1092) sq m NOT ACCURATE CREATININE CLEARANCE IN PREDICTING GLOMERULAR FILTRATION RATE . ESTIMATED GFR I S NOT APPLICABLE FOR DIALYSIS PATIEN TS. [id number] 05:07:00 Test Item Value Reference Range Interpretation Comments PHOSPHORUS (BEAKER) (test code = 4.6 mg/dL 2.3-4.7 604) [id number] 05:07:00 Test Item Value Reference Range Interpretation Comments MAGNESIUM (BEAKER) (test code = 1.7 mg/dL 1.6-2.6 627) CBC W/PLT COUNT & AUTO [id number] 04:57:00 Test Item Value Reference Range Interpretation Comments WHITE BLOOD CELL COUNT (BEAKER) 14.3 K/ L 3.5-10.5 H (test code = 775) RED BLOOD CELL COUNT (BEAKER) 2.70 M/ L 3.93-5.22 L (test code = 761) HEMOGLOBIN (BEAKER) (test code = 7.8 GM/DL 11.2-15.7 L 410) HEMATOCRIT (BEAKER) (test code = 24.9 % 34.1-44.9 L 411) MEAN CORPUSCULAR VOLUME (BEAKER) 92.2 fL 79.4-94.8 (test code = 753) MEAN CORPUSCULAR HEMOGLOBIN 28.9 pg 25.6-32.2 (BEAKER) (test code = 751) MEAN CORPUSCULAR HEMOGLOBIN CONC 31.3 GM/DL 32.2-35.5 L (BEAKER) (test code = 752) RED CELL DISTRIBUTION WIDTH 15.2 % 11.7-14.4 H (BEAKER) (test code = 412) PLATELET COUNT (BEAKER) (test 236 K/CU MM 150-450 code = 756) MEAN PLATELET VOLUME (BEAKER) 9.9 fL 9.4-12.3 (test code = 754) NUCLEATED RED BLOOD CELLS 0 /100 WBC 0-0 (BEAKER) (test code = 413) NEUTROPHILS RELATIVE PERCENT 79 % (BEAKER) (test code = 429) LYMPHOCYTES RELATIVE PERCENT 7 % (BEAKER) (test code = 430) MONOCYTES RELATIVE PERCENT 8 % (BEAKER) (test code = 431) EOSINOPHILS RELATIVE PERCENT 4 % (BEAKER) (test code = 432) BASOPHILS RELATIVE PERCENT 0 % (BEAKER) (test code = 437) NEUTROPHILS ABSOLUTE COUNT 11.29 K/ L 1.56-6.13 H (BEAKER) (test code = 670) LYMPHOCYTES ABSOLUTE COUNT 1.00 K/ L 1.18-3.74 L (BEAKER) (test code = 414) MONOCYTES ABSOLUTE COUNT (BEAKER) 1.14 K/ L 0.24-0.36 H (test code = 415) EOSINOPHILS ABSOLUTE COUNT 0.51 K/ L 0.04-0.36 H (BEAKER) (test code = 416) BASOPHILS ABSOLUTE COUNT (BEAKER) 0.05 K/ L 0.01-0.08 (test code = 417) IMMATURE GRANULOCYTES-RELATIVE 2 % 0-1 H PERCENT ([facility]) (test code = 2801) RETICULOCYTE [id number] 04:39:00 Test Item Value Reference Range Interpretation Comments RETICULOCYTE COUNT PCT ([facility]) (test 1.2 % 0.5-1.7 code = 575) POCT-GLUCOSE [id number] 21:32:00 Test Item Value Reference Range Interpretation Comments POC-GLUCOSE METER 164 mg/dL 70-110 H TESTED AT [place] [address] ([facility]) (test code = [facility] [employer] [facility] 1538) [id number] POCT-GLUCOSE [id number] 17:52:00 Test Item Value Reference Range Interpretation Comments POC-GLUCOSE METER 130 mg/dL 70-110 H TESTED AT [place] [address] ([facility]) (test code = [employer] [facility] 1538) [id number] POCT-GLUCOSE [id number] 13:09:00 Test Item Value Reference Range Interpretation Comments POC-GLUCOSE METER 126 mg/dL 70-110 H TESTED AT [place] [address] ([facility]) (test code = [employer] [facility] 1538) [address] RAD, CHEST, 1 VIEW, NON [id number] 08:07:00Reason for exam:->post extubationShould this be performed at the bedside?->YesFINAL REPORT INDICATION: post extubation COMPARISON:January 28 TECHNIQUE: Chest ra diograph, single view, portable technique. FINDINGS / IMPRESSION: Lungs are clear and heart shadow normal in size. No pneumothorax or pleural effusion demonstrated. Double lumen right internal jugular line terminates in the low SVC. Signed: Rj Rhoades MDReport Verified Date/Time: 01/29/2019 08:07:52 Reading Location: [facility] C013Y CT Body Reading Room POCT-GLUCOSE [id number] 08:03:00 Test Item Value Reference Range Interpretation Comments POC-GLUCOSE METER 104 mg/dL 70-110 TESTED AT [place] [address] ([facility]) ([facility] 1538) [address] BLOOD [id number] 08:01:00 Test Item Value Reference Range Interpretation Comments CULTURE (BEAKER) (test No growth in 5 days code = 1095) BLOOD [id number] 08:01:00 Test Item Value Reference Range Interpretation Comments CULTURE (BEAKER) (test No growth in 5 days code = 1095) [id number] 06:15:00 Test Item Value Reference Range Interpretation Comments PHOSPHORUS (BEAKER) (test code = 4.2 mg/dL 2.3-4.7 604) [id number] 06:15:00 Test Item Value Reference Range Interpretation Comments MAGNESIUM (BEAKER) (test code = 1.5 mg/dL 1.6-2.6 L 627) COMPREHENSIVE METABOLIC [id number] 06:15:00 Test Item Value Reference Range Interpretation Comments TOTAL PROTEIN 5.5 gm/dL 6.0-8.3 L (BEAKER) (test code = 770) ALBUMIN (BEAKER) 2.4 g/dL 3.5-5.0 L (test code = 1145) ALKALINE PHOSPHATASE 83 U/L 40-150 (BEAKER) (test code = 346) BILIRUBIN TOTAL 0.5 mg/dL 0.2-1.2 (BEAKER) (test code = 377) SODIUM (BEAKER) (test 137 meq/L 136-145 code = 381) POTASSIUM (BEAKER) 4.1 meq/L 3.5-5.1 (test code = 379) CHLORIDE (BEAKER) 102 meq/L 98-107 (test code = 382) CO2 (BEAKER) (test 25 meq/L 22-29 code = 355) BLOOD UREA NITROGEN 47 mg/dL 7-21 H (BEAKER) (test code = 354) CREATININE (BEAKER) 4.38 mg/dL 0.57-1.25 H (test code = 358) GLUCOSE RANDOM 88 mg/dL 70-105 (BEAKER) (test code = 652) CALCIUM (BEAKER) 8.2 mg/dL 8.4-10.2 L (test code = 697) AST (SGOT) (BEAKER) 32 U/L 5-34 (test code = 353) ALT (SGPT) (BEAKER) 7 U/L 6-55 (test code = 347) EGFR (BEAKER) (test 12 mL/min/1.73 ESTIMA RONAL GFR IS code = 1092) sq m NOT ACCURATE CREATININE CLEARANCE IN PREDICTING GLOMERULAR FILTRATION RATE . ESTIMATED GFR I S NOT APPLICABLE FOR DIALYSIS PATIEN TS. CBC W/PLT COUNT & AUTO [id number] 05:44:00 Test Item Value Reference Range Interpretation Comments WHITE BLOOD CELL COUNT (BEAKER) 13.8 K/ L 3.5-10.5 H (test code = 775) RED BLOOD CELL COUNT (BEAKER) 2.77 M/ L 3.93-5.22 L (test code = 761) HEMOGLOBIN (BEAKER) (test code = 7.9 GM/DL 11.2-15.7 L 410) HEMATOCRIT (BEAKER) (test code = 25.5 % 34.1-44.9 L 411) MEAN CORPUSCULAR VOLUME (BEAKER) 92.1 fL 79.4-94.8 (test code = 753) MEAN CORPUSCULAR HEMOGLOBIN 28.5 pg 25.6-32.2 (BEAKER) (test code = 751) MEAN CORPUSCULAR HEMOGLOBIN CONC 31.0 GM/DL 32.2-35.5 L (BEAKER) (test code = 752) RED CELL DISTRIBUTION WIDTH 15.5 % 11.7-14.4 H (BEAKER) (test code = 412) PLATELET COUNT (BEAKER) (test 185 K/CU MM 150-450 code = 756) MEAN PLATELET VOLUME (BEAKER) 10.5 fL 9.4-12.3 (test code = 754) NUCLEATED RED BLOOD CELLS 0 /100 WBC 0-0 (BEAKER) (test code = 413) NEUTROPHILS RELATIVE PERCENT 78 % (BEAKER) (test code = 429) LYMPHOCYTES RELATIVE PERCENT 8 % (BEAKER) (test code = 430) MONOCYTES RELATIVE PERCENT 8 % (BEAKER) (test code = 431) EOSINOPHILS RELATIVE PERCENT 5 % (BEAKER) (test code = 432) BASOPHILS RELATIVE PERCENT 0 % (BEAKER) (test code = 437) NEUTROPHILS ABSOLUTE COUNT 10.77 K/ L 1.56-6.13 H (BEAKER) (test code = 670) LYMPHOCYTES ABSOLUTE COUNT 1.12 K/ L 1.18-3.74 L (BEAKER) (test code = 414) MONOCYTES ABSOLUTE COUNT (BEAKER) 1.04 K/ L 0.24-0.36 H (test code = 415) EOSINOPHILS ABSOLUTE COUNT 0.62 K/ L 0.04-0.36 H ([facility]) (test code = 416) BASOPHILS ABSOLUTE COUNT ([facility]) 0.05 K/ L 0.01-0.08 (test code = 417) IMMATURE GRANULOCYTES-RELATIVE 2 % 0-1 H PERCENT ([facility]) (test code = 2801) POCT-GLUCOSE [id number] 21:16:00 Test Item Value Reference Range Interpretation Comments POC-GLUCOSE METER 160 mg/dL 70-110 H TESTED AT [place] [address] ([facility]) (test code = [place] [address]) [id number] POCT-GLUCOSE [id number] 18:18:00 Test Item Value Reference Range Interpretation Comments POC-GLUCOSE METER 195 mg/dL 70-110 H TESTED AT [place] [address] ([facility]) (test code = [place] [address]) [id number] POCT-GLUCOSE [id number] 16:47:00 Test Item Value Reference Range Interpretation Comments POC-GLUCOSE METER 131 mg/dL 70-110 H TESTED AT [place] [address] ([facility]) (test code = [place] 15[address]) [address] POCT-GLUCOSE [id number] 12:49:00 Test Item Value Reference Range Interpretation Comments POC-GLUCOSE METER 114 mg/dL 70-110 H TESTED AT [place] [address] ([facility]) (test code = [place] 15[address]) [id number] POCT-GLUCOSE [id number] 07:56:00 Test Item Value Reference Range Interpretation Comments POC-GLUCOSE METER 113 mg/dL 70-110 H TESTED AT [place] [address] ([facility]) (test code = [place] 15[address]) [id number] RAD, CHEST, 1 VIEW, NON [id number] 07:24:00Reason for exam:->post extubationShould this be performed at the bedside?->YesFINAL REPORT RAD, CHEST, 1 VIEW, NON DEPT INDICATION: post extubation COMPARIS ON: Prior day's exam FINDINGS: Portable frontal view of the chest. IMPRESSION: Support Lines: Right IJ dual-lumen central venous catheter is stable. Lungs and pleura: Mild underinflation. No consolidation or effusion. No pneumothorax.Heart and mediastinum: Stable contours. Additional findings: None. Signed: JR Rogelio, Julio Cm Verified Date/Time: 01/28/2019 07:24:41 Reading Location: [facility] C013V Neuro Reading Room COMPREHENSIVE METABOLIC [id number] 05:44:00 Test Item Value Reference Range Interpretation Comments TOTAL PROTEIN 5.5 gm/dL 6.0-8.3 L (BEAKER) (test code = 770) ALBUMIN (BEAKER) 2.4 g/dL 3.5-5.0 L (test code = 1145) ALKALINE PHOSPHATASE 81 U/L 40-150 (BEAKER) (test code = 346) BILIRUBIN TOTAL 0.5 mg/dL 0.2-1.2 (BEAKER) (test code = 377) SODIUM (BEAKER) (test 140 meq/L 136-145 code = 381) POTASSIUM (BEAKER) 4.1 meq/L 3.5-5.1 (test code = 379) CHLORIDE (BEAKER) 103 meq/L 98-107 (test code = 382) CO2 (BEAKER) (test 28 meq/L 22-29 code = 355) BLOOD UREA NITROGEN 39 mg/dL 7-21 H (BEAKER) (test code = 354) CREATININE (BEAKER) 3.86 mg/dL 0.57-1.25 H (test code = 358) GLUCOSE RANDOM 99 mg/dL 70-105 (BEAKER) (test code = 652) CALCIUM (BEAKER) 8.2 mg/dL 8.4-10.2 L (test code = 697) AST (SGOT) (BEAKER) 18 U/L 5-34 (test code = 353) ALT (SGPT) (BEAKER) < U/L 6-55 L (test code = 347) EGFR (BEAKER) (test 14 mL/min/1.73 ESTIMA RONAL GFR IS code = 1092) sq m NOT ACCURATE CREATININE CLEARANCE IN PREDICTING GLOMERULAR FILTRATION RATE . ESTIMATED GFR I S NOT APPLICABLE FOR DIALYSIS PATIEN TS. [id number] 05:42:00 Test Item Value Reference Range Interpretation Comments PHOSPHORUS (BEAKER) (test code = 4.2 mg/dL 2.3-4.7 604) [id number] 05:42:00 Test Item Value Reference Range Interpretation Comments MAGNESIUM (BEAKER) (test code = 1.6 mg/dL 1.6-2.6 627) CBC W/PLT COUNT & AUTO [id number] 05:12:00 Test Item Value Reference Range Interpretation Comments WHITE BLOOD CELL COUNT (BEAKER) 14.7 K/ L 3.5-10.5 H (test code = 775) RED BLOOD CELL COUNT (BEAKER) 2.81 M/ L 3.93-5.22 L (test code = 761) HEMOGLOBIN (BEAKER) (test code = 8.1 GM/DL 11.2-15.7 L 410) HEMATOCRIT (BEAKER) (test code = 25.6 % 34.1-44.9 L 411) MEAN CORPUSCULAR VOLUME (BEAKER) 91.1 fL 79.4-94.8 (test code = 753) MEAN CORPUSCULAR HEMOGLOBIN 28.8 pg 25.6-32.2 (BEAKER) (test code = 751) MEAN CORPUSCULAR HEMOGLOBIN CONC 31.6 GM/DL 32.2-35.5 L (BEAKER) (test code = 752) RED CELL DISTRIBUTION WIDTH 15.9 % 11.7-14.4 H (BEAKER) (test code = 412) PLATELET COUNT (BEAKER) (test 138 K/CU MM 150-450 L code = 756) MEAN PLATELET VOLUME (BEAKER) 10.5 fL 9.4-12.3 (test code = 754) NUCLEATED RED BLOOD CELLS 0 /100 WBC 0-0 (BEAKER) (test code = 413) NEUTROPHILS RELATIVE PERCENT 79 % (BEAKER) (test code = 429) LYMPHOCYTES RELATIVE PERCENT 8 % (BEAKER) (test code = 430) MONOCYTES RELATIVE PERCENT 8 % (BEAKER) (test code = 431) EOSINOPHILS RELATIVE PERCENT 4 % (BEAKER) (test code = 432) BASOPHILS RELATIVE PERCENT 0 % (BEAKER) (test code = 437) NEUTROPHILS ABSOLUTE COUNT 11.53 K/ L 1.56-6.13 H (BEAKER) (test code = 670) LYMPHOCYTES ABSOLUTE COUNT 1.10 K/ L 1.18-3.74 L (BEAKER) (test code = 414) MONOCYTES ABSOLUTE COUNT (BEAKER) 1.19 K/ L 0.24-0.36 H (test code = 415) EOSINOPHILS ABSOLUTE COUNT 0.61 K/ L 0.04-0.36 H (BEAKER) (test code = 416) BASOPHILS ABSOLUTE COUNT (BEAKER) 0.05 K/ L 0.01-0.08 (test code = 417) IMMATURE GRANULOCYTES-RELATIVE 1 % 0-1 PERCENT (BEAKER) (test code = 2801) POCT-GLUCOSE [id number] 21:58:00 Test Item Value Reference Range Interpretation Comments POC-GLUCOSE METER 200 mg/dL 70-110 H TESTED AT [facility] 6720 ([facility]) (test code = [facility] 1538) [address] POCT-GLUCOSE [id number] 19:08:00 Test Item Value Reference Range Interpretation Comments POC-GLUCOSE METER 155 mg/dL 70-110 H TESTED AT [place] [address] ([facility]) (test code = [facility] 1538) [address] POCT-GLUCOSE [id number] 08:16:00 Test Item Value Reference Range Interpretation Comments POC-GLUCOSE METER 85 mg/dL 70-110 TESTED AT [place] [address] ([facility]) (test code = [facility] [address] 1538) RAD, CHEST, 1 VIEW, NON [id number] 07:11:00Reason for exam:->post extubationShould this be performed at the bedside?->YesFINAL REPORT Chest, one view HISTORY: Status post extubation Comparison: 2018 Findings: Lungs: Stable bilateral airspace disease. Heart: Normal in size. Pleura: No pleural effusion or pneumothorax. Bones: Unremarkable. Lines/tubes: Unchanged position of right-sided hemodialysis catheter. IMPRESSION: No significant interval change. Signed: Gary Tucker Verified D ate/Time: 01/27/2019 07:11:40 Reading Location: [facility] [id number] Ortho Consult Reading Room COMPREHENSIVE METABOLIC [id number] 05:10:00 Test Item Value Reference Range Interpretation Comments TOTAL PROTEIN 5.4 gm/dL 6.0-8.3 L (BEAKER) (test code = 770) ALBUMIN (BEAKER) 2.4 g/dL 3.5-5.0 L (test code = 1145) ALKALINE PHOSPHATASE 75 U/L 40-150 (BEAKER) (test code = 346) BILIRUBIN TOTAL 0.5 mg/dL 0.2-1.2 (BEAKER) (test code = 377) SODIUM (BEAKER) (test 138 meq/L 136-145 code = 381) POTASSIUM (BEAKER) 4.3 meq/L 3.5-5.1 (test code = 379) CHLORIDE (BEAKER) 103 meq/L 98-107 (test code = 382) CO2 (BEAKER) (test 26 meq/L 22-29 code = 355) BLOOD UREA NITROGEN 38 mg/dL 7-21 H (BEAKER) (test code = 354) CREATININE (BEAKER) 4.03 mg/dL 0.57-1.25 H (test code = 358) GLUCOSE RANDOM 88 mg/dL 70-105 (BEAKER) (test code = 652) CALCIUM (BEAKER) 8.2 mg/dL 8.4-10.2 L (test code = 697) AST (SGOT) (BEAKER) 18 U/L 5-34 (test code = 353) ALT (SGPT) (BEAKER) < U/L 6-55 L (test code = 347) EGFR (BEAKER) (test 13 mL/min/1.73 ESTIMA RONAL GFR IS code = 1092) sq m NOT ACCURATE CREATININE CLEARANCE IN PREDICTING GLOMERULAR FILTRATION RATE . ESTIMATED GFR I S NOT APPLICABLE FOR DIALYSIS PATIEN TS. [id number] 05:04:00 Test Item Value Reference Range Interpretation Comments PHOSPHORUS (BEAKER) (test code = 4.3 mg/dL 2.3-4.7 604) [id number] 05:04:00 Test Item Value Reference Range Interpretation Comments MAGNESIUM (BEAKER) (test code = 1.7 mg/dL 1.6-2.6 627) CBC W/PLT COUNT & AUTO [id number] 04:51:00 Test Item Value Reference Range Interpretation Comments WHITE BLOOD CELL COUNT (BEAKER) 12.7 K/ L 3.5-10.5 H (test code = 775) RED BLOOD CELL COUNT (BEAKER) 2.97 M/ L 3.93-5.22 L (test code = 761) HEMOGLOBIN (BEAKER) (test code = 8.4 GM/DL 11.2-15.7 L 410) HEMATOCRIT (BEAKER) (test code = 26.9 % 34.1-44.9 L 411) MEAN CORPUSCULAR VOLUME (BEAKER) 90.6 fL 79.4-94.8 (test code = 753) MEAN CORPUSCULAR HEMOGLOBIN 28.3 pg 25.6-32.2 (BEAKER) (test code = 751) MEAN CORPUSCULAR HEMOGLOBIN CONC 31.2 GM/DL 32.2-35.5 L (BEAKER) (test code = 752) RED CELL DISTRIBUTION WIDTH 16.2 % 11.7-14.4 H (BEAKER) (test code = 412) PLATELET COUNT (BEAKER) (test 122 K/CU MM 150-450 L code = 756) MEAN PLATELET VOLUME (BEAKER) 11.0 fL 9.4-12.3 (test code = 754) NUCLEATED RED BLOOD CELLS 0 /100 WBC 0-0 (BEAKER) (test code = 413) NEUTROPHILS RELATIVE PERCENT 81 % (BEAKER) (test code = 429) LYMPHOCYTES RELATIVE PERCENT 6 % (BEAKER) (test code = 430) MONOCYTES RELATIVE PERCENT 8 % (BEAKER) (test code = 431) EOSINOPHILS RELATIVE PERCENT 4 % (BEAKER) (test code = 432) BASOPHILS RELATIVE PERCENT 0 % (BEAKER) (test code = 437) NEUTROPHILS ABSOLUTE COUNT 10.22 K/ L 1.56-6.13 H (BEAKER) (test code = 670) LYMPHOCYTES ABSOLUTE COUNT 0.73 K/ L 1.18-3.74 L (BEAKER) (test code = 414) MONOCYTES ABSOLUTE COUNT (BEAKER) 1.00 K/ L 0.24-0.36 H (test code = 415) EOSINOPHILS ABSOLUTE COUNT 0.55 K/ L 0.04-0.36 H (BEAKER) (test code = 416) BASOPHILS ABSOLUTE COUNT (BEAKER) 0.03 K/ L 0.01-0.08 (test code = 417) IMMATURE GRANULOCYTES-RELATIVE 1 % 0-1 PERCENT (BEAKER) (test code = 2801) [id number] 21:17:00 Test Item Value Reference Range Interpretation Comments PROTIME (BEAKER) (test code = 13.9 seconds 11.7-14.7 759) INR (BEAKER) (test code = 370) 1.1 <=5.9 PARTIAL THROMBOPLASTIN TIME 45.8 seconds 22.5-36.0 H (BEAKER) (test code = 760) RECOMMENDED COUMADIN/WARFARIN INR THERAPY RANGESSTANDARD DOSE: 2.0 - 3.0 Includes: PROPHYLAXIS forvenous thrombosis, systemic embolization; TREATMENT for venous thrombosis and/or pulmonary embolus.HIGH RISK: Target INR is 2.5-3.5 for patients with mechanical heart valves.CBC W/PLT COUNT & AUTO DIFFERENTIAL 2019-01-26 21:10:00 Test Item Value Reference Range Interpretation Comments WHITE BLOOD CELL COUNT (BEAKER) 15.4 K/ L 3.5-10.5 H (test code = 775) RED BLOOD CELL COUNT (BEAKER) 3.20 M/ L 3.93-5.22 L (test code = 761) HEMOGLOBIN (BEAKER) (test code = 9.2 GM/DL 11.2-15.7 L 410) HEMATOCRIT (BEAKER) (test code = 28.4 % 34.1-44.9 L 411) MEAN CORPUSCULAR VOLUME (BEAKER) 88.8 fL 79.4-94.8 (test code = 753) MEAN CORPUSCULAR HEMOGLOBIN 28.8 pg 25.6-32.2 (BEAKER) (test code = 751) MEAN CORPUSCULAR HEMOGLOBIN CONC 32.4 GM/DL 32.2-35.5 (BEAKER) (test code = 752) RED CELL DISTRIBUTION WIDTH 16.4 % 11.7-14.4 H (BEAKER) (test code = 412) PLATELET COUNT (BEAKER) (test 131 K/CU MM 150-450 L code = 756) MEAN PLATELET VOLUME (BEAKER) 11.5 fL 9.4-12.3 (test code = 754) NUCLEATED RED BLOOD CELLS 0 /100 WBC 0-0 (BEAKER) (test code = 413) NEUTROPHILS RELATIVE PERCENT 82 % (BEAKER) (test code = 429) LYMPHOCYTES RELATIVE PERCENT 6 % (BEAKER) (test code = 430) MONOCYTES RELATIVE PERCENT 7 % (BEAKER) (test code = 431) EOSINOPHILS RELATIVE PERCENT 4 % (BEAKER) (test code = 432) BASOPHILS RELATIVE PERCENT 0 % (BEAKER) (test code = 437) NEUTROPHILS ABSOLUTE COUNT 12.53 K/ L 1.56-6.13 H (BEAKER) (test code = 670) LYMPHOCYTES ABSOLUTE COUNT 0.88 K/ L 1.18-3.74 L (BEAKER) (test code = 414) MONOCYTES ABSOLUTE COUNT (BEAKER) 1.05 K/ L 0.24-0.36 H (test code = 415) EOSINOPHILS ABSOLUTE COUNT 0.67 K/ L 0.04-0.36 H (BEAKER) (test code = 416) BASOPHILS ABSOLUTE COUNT (BEAKER) 0.03 K/ L 0.01-0.08 (test code = 417) IMMATURE GRANULOCYTES-RELATIVE 1 % 0-1 PERCENT (BEAKER) (test code = 2801) POCT-LACTIC ACID, [id number] 20:44:00 Test Item Value Reference Range Interpretation Comments POC-LACTIC ACID, 0.8 mmol/L 0.9-1.7 L TESTED AT [place] [address] VENOUS (BEAKER) (test [facility] [place] [facility] code = 2805) [address] [id number] 20:44:00 Test Item Value Reference Range Interpretation Comments POC-HEMOGLOBIN 9.2 g/dL 12.0-15.0 L TESTED AT [facility] 6720 (BEAKER) (test code = [facility] 1856) [address]DNOAWC AT [place] [address] [facility] [address] POCT-BLOOD GASES, [id number] 20:43:00 Test Item Value Reference Range Interpretation Comments TEMP, CELSIUS-POC 37.0 (BEAKER) (test code = 1834) FIO2-POC (BEAKER) TESTED AT [place] [address] (test code = 1835) [place] [address] PH, VENOUS-POC 7.475 7.320-7.420 H (BEAKER) (test code = 1842) PCO2, VENOUS-POC 40.3 mm Hg 41.0-51.0 L (BEAKER) (test code = 1843) PO2, VENOUS-POC 43.0 mm Hg 25.0-40.0 H (BEAKER) (test code = 1844) SO2, VENOUS-POC 82.0 % 40.0-70.0 H ([facility]) (test code = 1845) HCO3, VENOUS-POC 29.7 meq/L 21.0-29.0 H ([facility]) (test code = 1846) BASE EXCESS, 6.0 meq/L -2.0-3.0 H VENOUS-POC ([facility]) (test code = 1847) [id number] 20:43:00 Test Item Value Reference Range Interpretation Comments POC-SODIUM ([facility]) 137 meq/L 135-148 TESTED [place] [address] (test code = 1542) ELIU [facility] [address] [id number] 20:43:00 Test Item Value Reference Range Interpretation Comments POC-POTASSIUM 5.0 meq/L 3.6-5.5 TESTED AT [place] [address] ([facility]) (test code [facility] [address] = 1540) [id number] 20:43:00 Test Item Value Reference Range Interpretation Comments POC-GLUCOSE ([facility]) 120 mg/dL 70-110 H TESTED AT [place] [address] (test code = 1855) [facility] [address] POCT-CALCIUM [id number] 20:43:00 Test Item Value Reference Range Interpretation Comments POC-CALCIUM IONIZED 1.14 mmol/L 1.12-1.27 TESTED [place] [address] ([facility]) (test code = [facility] 1536) [address] [id number] 20:43:00 Test Item Value Reference Range Interpretation Comments POC-HEMATOCRIT 27 % 36-45 L TESTED AT [place] [address] ([facility]) (test code = [facility] [address] 3695) POCT-GLUCOSE [id number] 18:18:00 Test Item Value Reference Range Interpretation Comments POC-GLUCOSE METER 105 mg/dL 70-110 TESTED AT [place] [address] ([facility]) (test code = [facility] 1538) [address] POCT-GLUCOSE [id number] 12:30:00 Test Item Value Reference Range Interpretation Comments POC-GLUCOSE METER 97 mg/dL 70-110 TESTED AT [place] [address] (BEAKER) (test code = [facility] [place] [address] 1538) RAD, CHEST, 1 VIEW, NON [id number] 10:02:00Reason for exam:->post extubationShould this be performed at the bedside?->YesFINAL REPORT CLINICAL HISTORY: post extubation TECHNIQUE: 1 view of the chest. COMPARISON: 01/25/2019 IMPRESSION: The right central line is unchanged. There are no focal infiltrates or significant appearing effusions. The cardiomediastinal silhouette is magnified by technique. Signed: Carlee Lindo MDReport Verified Date/Time: 01/26/2019 10:02:54 Reading Location: [facility] Reading Room COMPREHENSIVE METABOLIC [id number] 06:30:00 Test Item Value Reference Range Interpretation Comments TOTAL PROTEIN 5.3 gm/dL 6.0-8.3 L Specimen sligh tly (BEAKER) (test code = hemoly zed 770) ALBUMIN (BEAKER) 2.4 g/dL 3.5-5.0 L Specimen sl ightly (test code = 1145) hemolyzed ALKALINE PHOSPHATASE 64 U/L 40-150 (BEAKER) (test code = 346) BILIRUBIN TOTAL 0.6 mg/dL 0.2-1.2 Specimen sli ghtly (BEAKER) (test code = hemoly zed 377) SODIUM (BEAKER) (test 138 meq/L 136-145 code = 381) POTASSIUM (BEAKER) 3.8 meq/L 3.5-5.1 Specimen slightly (test code = 379) hemolyzed CHLORIDE (BEAKER) 103 meq/L 98-107 (test code = 382) CO2 (BEAKER) (test 29 meq/L 22-29 code = 355) BLOOD UREA NITROGEN 27 mg/dL 7-21 H (BEAKER) (test code = 354) CREATININE (BEAKER) 3.09 mg/dL 0.57-1.25 H Specimen slightly (test code = 358) hemolyzed GLUCOSE RANDOM 89 mg/dL 70-105 (BEAKER) (test code = 652) CALCIUM (BEAKER) 8.1 mg/dL 8.4-10.2 L (test code = 697) AST (SGOT) (BEAKER) 18 U/L 5-34 Specimen slightly (test code = 353) hemolyzed ALT (SGPT) (BEAKER) < U/L 6-55 L Specimen slightly (test code = 347) hemolyzed EGFR (BEAKER) (test 18 mL/min/1.73 ESTIMA RONAL GFR IS code = 1092) sq m NOT ACCURATE CREATININE CLEARANCE IN PREDICTING GLOMERULAR FILTRATION RATE . ESTIMATED GFR I S NOT APPLICABLE FOR DIALYSIS PATIEN TS. [id number] 06:28:00 Test Item Value Reference Range Interpretation Comments MAGNESIUM (BEAKER) 1.6 mg/dL 1.6-2.6 Specimen slightly (test code = 627) hemolyzed [id number] 06:28:00 Test Item Value Reference Range Interpretation Comments PHOSPHORUS (BEAKER) 3.5 mg/dL 2.3-4.7 Specimen slightly (test code = 604) hemolyzed CALCIUM, [id number] 06:18:00 Test Item Value Reference Range Interpretation Comments CALCIUM IONIZED (BEAKER) (test 1.01 mmol/L 1.12-1.27 L code = 698) PH, BLOOD (BEAKER) (test code = 7.50 1810) CBC W/PLT COUNT & AUTO [id number] 06:03:00 Test Item Value Reference Range Interpretation Comments WHITE BLOOD CELL COUNT (BEAKER) 12.0 K/ L 3.5-10.5 H (test code = 775) RED BLOOD CELL COUNT (BEAKER) 3.04 M/ L 3.93-5.22 L (test code = 761) HEMOGLOBIN (BEAKER) (test code = 8.6 GM/DL 11.2-15.7 L 410) HEMATOCRIT (BEAKER) (test code = 26.9 % 34.1-44.9 L 411) MEAN CORPUSCULAR VOLUME (BEAKER) 88.5 fL 79.4-94.8 (test code = 753) MEAN CORPUSCULAR HEMOGLOBIN 28.3 pg 25.6-32.2 (BEAKER) (test code = 751) MEAN CORPUSCULAR HEMOGLOBIN CONC 32.0 GM/DL 32.2-35.5 L (BEAKER) (test code = 752) RED CELL DISTRIBUTION WIDTH 16.0 % 11.7-14.4 H (BEAKER) (test code = 412) PLATELET COUNT (BEAKER) (test code 91 K/CU MM 150-450 L = 756) MEAN PLATELET VOLUME (BEAKER) 11.0 fL 9.4-12.3 (test code = 754) NUCLEATED RED BLOOD CELLS (BEAKER) 0 /100 WBC 0-0 (test code = 413) NEUTROPHILS RELATIVE PERCENT 76 % (BEAKER) (test code = 429) LYMPHOCYTES RELATIVE PERCENT 9 % (BEAKER) (test code = 430) MONOCYTES RELATIVE PERCENT 7 % (BEAKER) (test code = 431) EOSINOPHILS RELATIVE PERCENT 6 % (BEAKER) (test code = 432) BASOPHILS RELATIVE PERCENT 1 % (BEAKER) (test code = 437) NEUTROPHILS ABSOLUTE COUNT 9.05 K/ L 1.56-6.13 H (BEAKER) (test code = 670) LYMPHOCYTES ABSOLUTE COUNT 1.10 K/ L 1.18-3.74 L (BEAKER) (test code = 414) MONOCYTES ABSOLUTE COUNT (BEAKER) 0.85 K/ L 0.24-0.36 H (test code = 415) EOSINOPHILS ABSOLUTE COUNT 0.70 K/ L 0.04-0.36 H (BEAKER) (test code = 416) BASOPHILS ABSOLUTE COUNT (BEAKER) 0.06 K/ L 0.01-0.08 (test code = 417) IMMATURE GRANULOCYTES-RELATIVE 2 % 0-1 H PERCENT (BEAKER) (test code = 2801) CT, [id number] 00:46:00FINAL REPORT CLINICAL HISTORY: Large focal induration and swelling lower anterior abdominal wall, recent left acetabular repair, concern for hematoma FINDINGS: Multiple axial rayna ges of the abdomen and pelvis were performed after the uncomplicated administration of IV contrast. Oral contrast was not given. This exam was performed according to our departmental dose-optimizationprogram, which includes automated exposure control, adjustment of the mA and/or kV according to patient size and/or use of the iterative reconstruction technique. Comparison: CT pelvis dated 01/21/2019 Lower chest: Small [...] screw fixation of a left acetabular fracture. IMPR ESSION: 11.9 x 6.0 cm complex fluid collection [...] MDReport Verified Date/Time: 01/26/2019 00:46:02 Reading Location: [address] Reading Room Electronicallysigned by: GORDON ROBERTS M.D. on 01/26/2019 12:46 AMHEMOGLOBIN AND [id number] 00:02:00 Test Item Value Reference Range Interpretation Comments HEMOGLOBIN (BEAKER) (test code = 9.0 GM/DL 11.2-15.7 L 410) HEMATOCRIT (BEAKER) (test code = 26.9 % 34.1-44.9 L 411) POCT-GLUCOSE [id number] 21:49:00 Test Item Value Reference Range Interpretation Comments POC-GLUCOSE METER 159 mg/dL 70-110 H TESTED AT [facility] 6720 ([facility]) (test code = [facility] [place] 1538) [address] POCT-GLUCOSE [id number] 12:38:00 Test Item Value Reference Range Interpretation Comments POC-GLUCOSE METER 163 mg/dL 70-110 H TESTED AT [place] [id number] ([facility]) (test code = [facility] 1538) [address] RAD, CHEST, 1 VIEW, NON [id number] 10:18:00Reason for exam:->post extubationShould this be performed at the bedside?->YesFINAL REPORT CLINICAL HISTORY: post extubation TECHNIQUE: 1 view of the chest. COMPARISON: 01/24/2019 IMPRESSION: The right central line is unchanged. There are no infiltrates or effusions. The cardiomediastinal silhouette is magnified by technique. Signed: Carlee Lindo MDReportVerified Date/Time: 01/25/2019 10:18:20 Reading Location: [facility] Radiology Reading Room POCT-GLUCOSE METER 2019-01-25 08:57:00 Test Item Value Reference Range Interpretation Comments POC-GLUCOSE METER 117 mg/dL 70-110 H TESTED AT [place] [address] ([facility]) (test code = [facility] [facility] 1538) [address] COMPREHENSIVE METABOLIC [id number] 08:20:00 Test Item Value Reference Range Interpretation Comments TOTAL PROTEIN 5.7 gm/dL 6.0-8.3 L (BEAKER) (test code = 770) ALBUMIN (BEAKER) 2.6 g/dL 3.5-5.0 L (test code = 1145) ALKALINE PHOSPHATASE 71 U/L 40-150 (BEAKER) (test code = 346) BILIRUBIN TOTAL 0.3 mg/dL 0.2-1.2 (BEAKER) (test code = 377) SODIUM (BEAKER) (test 139 meq/L 136-145 code = 381) POTASSIUM (BEAKER) 4.6 meq/L 3.5-5.1 (test code = 379) CHLORIDE (BEAKER) 102 meq/L 98-107 (test code = 382) CO2 (BEAKER) (test 28 meq/L 22-29 code = 355) BLOOD UREA NITROGEN 41 mg/dL 7-21 H (BEAKER) (test code = 354) CREATININE (BEAKER) 4.56 mg/dL 0.57-1.25 H (test code = 358) GLUCOSE RANDOM 105 mg/dL 70-105 (BEAKER) (test code = 652) CALCIUM (BEAKER) 8.3 mg/dL 8.4-10.2 L (test code = 697) AST (SGOT) (BEAKER) 20 U/L 5-34 (test code = 353) ALT (SGPT) (BEAKER) < U/L 6-55 L (test code = 347) EGFR (BEAKER) (test 12 mL/min/1.73 ESTIMA RONAL GFR IS code = 1092) sq m NOT ACCURATE CREATININE CLEARANCE IN PREDICTING GLOMERULAR FILTRATION RATE . ESTIMATED GFR I S NOT APPLICABLE FOR DIALYSIS PATIEN TS. [id number] 08:18:00 Test Item Value Reference Range Interpretation Comments PHOSPHORUS (BEAKER) (test code = 4.7 mg/dL 2.3-4.7 604) [id number] 08:18:00 Test Item Value Reference Range Interpretation Comments MAGNESIUM (BEAKER) (test code = 2.0 mg/dL 1.6-2.6 627) CBC W/PLT COUNT & AUTO [id number] 06:36:00 Test Item Value Reference Range Interpretation Comments WHITE BLOOD CELL COUNT (BEAKER) 10.9 K/ L 3.5-10.5 H (test code = 775) RED BLOOD CELL COUNT (BEAKER) 2.32 M/ L 3.93-5.22 L (test code = 761) HEMOGLOBIN (BEAKER) (test code = 6.7 GM/DL 11.2-15.7 L 410) HEMATOCRIT (BEAKER) (test code = 21.2 % 34.1-44.9 L 411) MEAN CORPUSCULAR VOLUME (BEAKER) 91.4 fL 79.4-94.8 (test code = 753) MEAN CORPUSCULAR HEMOGLOBIN 28.9 pg 25.6-32.2 (BEAKER) (test code = 751) MEAN CORPUSCULAR HEMOGLOBIN CONC 31.6 GM/DL 32.2-35.5 L (BEAKER) (test code = 752) RED CELL DISTRIBUTION WIDTH 16.6 % 11.7-14.4 H (BEAKER) (test code = 412) PLATELET COUNT (BEAKER) (test 109 K/CU MM 150-450 L code = 756) MEAN PLATELET VOLUME (BEAKER) 11.0 fL 9.4-12.3 (test code = 754) NUCLEATED RED BLOOD CELLS 0 /100 WBC 0-0 (BEAKER) (test code = 413) NEUTROPHILS RELATIVE PERCENT 79 % (BEAKER) (test code = 429) LYMPHOCYTES RELATIVE PERCENT 9 % (BEAKER) (test code = 430) MONOCYTES RELATIVE PERCENT 6 % (BEAKER) (test code = 431) EOSINOPHILS RELATIVE PERCENT 5 % (BEAKER) (test code = 432) BASOPHILS RELATIVE PERCENT 0 % (BEAKER) (test code = 437) NEUTROPHILS ABSOLUTE COUNT 8.64 K/ L 1.56-6.13 H (BEAKER) (test code = 670) LYMPHOCYTES ABSOLUTE COUNT 0.97 K/ L 1.18-3.74 L (BEAKER) (test code = 414) MONOCYTES ABSOLUTE COUNT (BEAKER) 0.60 K/ L 0.24-0.36 H (test code = 415) EOSINOPHILS ABSOLUTE COUNT 0.52 K/ L 0.04-0.36 H (BEAKER) (test code = 416) BASOPHILS ABSOLUTE COUNT (BEAKER) 0.03 K/ L 0.01-0.08 (test code = 417) IMMATURE GRANULOCYTES-RELATIVE 1 % 0-1 PERCENT (BEAKER) (test code = 2801) CALCIUM, [id number] 06:35:00 Test Item Value Reference Range Interpretation Comments CALCIUM IONIZED (BEAKER) (test 1.01 mmol/L 1.12-1.27 L code = 698) PH, BLOOD (BEAKER) (test code = 7.46 1810) BLOOD [id number] 20:01:00 Test Item Value Reference Range Interpretation Comments CULTURE (BEAKER) (test No growth in 5 days code = 1095) BLOOD [id number] 20:01:00 Test Item Value Reference Range Interpretation Comments CULTURE (BEAKER) (test No growth in 5 days code = 1095) POCT-GLUCOSE [id number] 19:39:00 Test Item Value Reference Range Interpretation Comments POC-GLUCOSE METER 181 mg/dL 70-110 H TESTED AT [facility] 6720 (BEAKER) (test code = [place] 1538) [address] CBC W/PLT COUNT & AUTO [id number] 18:18:00 Test Item Value Reference Range Interpretation Comments WHITE BLOOD CELL COUNT (BEAKER) 13.7 K/ L 3.5-10.5 H (test code = 775) RED BLOOD CELL COUNT (BEAKER) 2.38 M/ L 3.93-5.22 L (test code = 761) HEMOGLOBIN (BEAKER) (test code = 6.8 GM/DL 11.2-15.7 L 410) HEMATOCRIT (BEAKER) (test code = 21.4 % 34.1-44.9 L 411) MEAN CORPUSCULAR VOLUME (BEAKER) 89.9 fL 79.4-94.8 (test code = 753) MEAN CORPUSCULAR HEMOGLOBIN 28.6 pg 25.6-32.2 (BEAKER) (test code = 751) MEAN CORPUSCULAR HEMOGLOBIN CONC 31.8 GM/DL 32.2-35.5 L (BEAKER) (test code = 752) RED CELL DISTRIBUTION WIDTH 16.4 % 11.7-14.4 H (BEAKER) (test code = 412) PLATELET COUNT (BEAKER) (test 108 K/CU MM 150-450 L code = 756) MEAN PLATELET VOLUME (BEAKER) 10.9 fL 9.4-12.3 (test code = 754) NUCLEATED RED BLOOD CELLS 0 /100 WBC 0-0 (BEAKER) (test code = 413) NEUTROPHILS RELATIVE PERCENT 87 % (BEAKER) (test code = 429) LYMPHOCYTES RELATIVE PERCENT 5 % (BEAKER) (test code = 430) MONOCYTES RELATIVE PERCENT 3 % (BEAKER) (test code = 431) EOSINOPHILS RELATIVE PERCENT 4 % (BEAKER) (test code = 432) BASOPHILS RELATIVE PERCENT 0 % (BEAKER) (test code = 437) NEUTROPHILS ABSOLUTE COUNT 11.89 K/ L 1.56-6.13 H (BEAKER) (test code = 670) LYMPHOCYTES ABSOLUTE COUNT 0.66 K/ L 1.18-3.74 L (BEAKER) (test code = 414) MONOCYTES ABSOLUTE COUNT (BEAKER) 0.47 K/ L 0.24-0.36 H (test code = 415) EOSINOPHILS ABSOLUTE COUNT 0.48 K/ L 0.04-0.36 H (AKER) (test code = 416) BASOPHILS ABSOLUTE COUNT (AKER) 0.02 K/ L 0.01-0.08 (test code = 417) IMMATURE GRANULOCYTES-RELATIVE 1 % 0-1 PERCENT (AKER) (test code = 2801) POCT-GLUCOSE [id number] 18:15:00 Test Item Value Reference Range Interpretation Comments POC-GLUCOSE METER 198 mg/dL 70-110 H TESTED AT [place] [address] ([facility]) (test code = [facility] 1538) [id number] HEMOGLOBIN AND [id number] 17:20:00 Test Item Value Reference Range Interpretation Comments [facility] (test code = 6.7 GM/DL 11.2-15.7 L 410) HEMATOCRIT ([facility]) (test code = 21.6 % 34.1-44.9 L 411) POCT-GLUCOSE [id number] 16:28:00 Test Item Value Reference Range Interpretation Comments POC-GLUCOSE METER 143 mg/dL 70-110 H TESTED AT [place] [address] ([facility]) (test code = [facility] 1538) [id number] POCT-GLUCOSE [id number] 12:06:00 Test Item Value Reference Range Interpretation Comments POC-GLUCOSE METER 139 mg/dL 70-110 H TESTED AT [place] [address] ([facility]) (test code = [facility] 1538) [address] [id number] 09:03:00 Test Item Value Reference Range Interpretation Comments AMMON[place] ([facility]) (test code = 348) 18 mol/L 18-72 RAD, CHEST, 1 VIEW, NON [id number] 08:38:00Reason for exam:->post extubationShould this be performed at the bedside?->YesFINAL REPORT CLINICAL HISTORY: post extubation TECHNIQUE: 1 view of the chest. COMPARISON: 01/23/2019 IMPRESSION: The right central line is unchanged. Medial left lung base consolidation is unchanged. There is no increasing pleural fluid. The cardiomediastinal silhouette is magnified by technique. Signed: Carlee Lindo MDReport Verified Date/Time: 01/24/2019 08:38:05 [facility] [place] COMPREHENSIVE METABOLIC [id number] 08:21:00 Test Item Value Reference Range Interpretation Comments TOTAL PROTEIN 6.0 gm/dL 6.0-8.3 (BEAKER) (test code = 770) ALBUMIN (BEAKER) 2.9 g/dL 3.5-5.0 L (test code = 1145) ALKALINE PHOSPHATASE 71 U/L 40-150 (BEAKER) (test code = 346) BILIRUBIN TOTAL 0.5 mg/dL 0.2-1.2 (BEAKER) (test code = 377) SODIUM (BEAKER) (test 137 meq/L 136-145 code = 381) POTASSIUM (BEAKER) 4.2 meq/L 3.5-5.1 (test code = 379) CHLORIDE (BEAKER) 100 meq/L 98-107 (test code = 382) CO2 (BEAKER) (test 27 meq/L 22-29 code = 355) BLOOD UREA NITROGEN 23 mg/dL 7-21 H (BEAKER) (test code = 354) CREATININE (BEAKER) 3.43 mg/dL 0.57-1.25 H (test code = 358) GLUCOSE RANDOM 123 mg/dL 70-105 H (BEAKER) (test code = 652) CALCIUM (BEAKER) 8.1 mg/dL 8.4-10.2 L (test code = 697) AST (SGOT) (BEAKER) 21 U/L 5-34 (test code = 353) ALT (SGPT) (BEAKER) < U/L 6-55 L (test code = 347) EGFR (BEAKER) (test 16 mL/min/1.73 ESTIMA ORNAL GFR IS code = 1092) sq m NOT ACCURATE CREATININE CLEARANCE IN PREDICTING GLOMERULAR FILTRATION RATE . ESTIMATED GFR I S NOT APPLICABLE FOR DIALYSIS PATIEN TS. [id number] 08:12:00 Test Item Value Reference Range Interpretation Comments PHOSPHORUS (BEAKER) (test code = 4.3 mg/dL 2.3-4.7 604) [id number] 08:12:00 Test Item Value Reference Range Interpretation Comments MAGNESIUM (BEAKER) (test code = 1.8 mg/dL 1.6-2.6 627) VITAMIN B12 AND [id number] 06:28:00 Test Item Value Reference Range Interpretation Comments VITAMIN B12 (BEAKER) (test code = 1321 pg/mL 213-816 H 774) FOLATE (BEAKER) (test code = 362) 5.2 ng/mL >=7.0 L TSH/FREE T4 IF [id number] 06:15:00 Test Item Value Reference Range Interpretation Comments THYROID STIMULATING HORMONE 3.79 uIU/mL 0.35-4.94 (BEAKER) (test code = 772) PROTHROMBIN [id number] 05:41:00 Test Item Value Reference Range Interpretation Comments PROTIME (BEAKER) (test code = 14.5 seconds 11.7-14.7 759) INR (BEAKER) (test code = 370) 1.2 <=5.9 RECOMMENDED COUMADIN/WARFARIN INR THERAPY RANGESSTANDARD DOSE: 2.0 - 3.0 Includes: PROPHYLAXIS forvenous thrombosis, systemic embolization; TREATMENT for venous thrombosis and/or pulmonary embolus.HIGH RISK: Target INR is 2.5-3.5 for patients with mechanical heart valves.CBC W/PLT COUNT & AUTO DIFFERENTIAL 2019-01-24 05:28:00 Test Item Value Reference Range Interpretation Comments WHITE BLOOD CELL COUNT (BEAKER) 14.0 K/ L 3.5-10.5 H (test code = 775) RED BLOOD CELL COUNT (BEAKER) 2.43 M/ L 3.93-5.22 L (test code = 761) HEMOGLOBIN (BEAKER) (test code = 7.0 GM/DL 11.2-15.7 L 410) HEMATOCRIT (BEAKER) (test code = 22.2 % 34.1-44.9 L 411) MEAN CORPUSCULAR VOLUME (BEAKER) 91.4 fL 79.4-94.8 (test code = 753) MEAN CORPUSCULAR HEMOGLOBIN 28.8 pg 25.6-32.2 (BEAKER) (test code = 751) MEAN CORPUSCULAR HEMOGLOBIN CONC 31.5 GM/DL 32.2-35.5 L (BEAKER) (test code = 752) RED CELL DISTRIBUTION WIDTH 16.5 % 11.7-14.4 H (BEAKER) (test code = 412) PLATELET COUNT (BEAKER) (test code 90 K/CU MM 150-450 L = 756) MEAN PLATELET VOLUME (BEAKER) 10.7 fL 9.4-12.3 (test code = 754) NUCLEATED RED BLOOD CELLS (BEAKER) 0 /100 WBC 0-0 (test code = 413) NEUTROPHILS RELATIVE PERCENT 84 % (BEAKER) (test code = 429) LYMPHOCYTES RELATIVE PERCENT 6 % (BEAKER) (test code = 430) MONOCYTES RELATIVE PERCENT 5 % (BEAKER) (test code = 431) EOSINOPHILS RELATIVE PERCENT 3 % (BEAKER) (test code = 432) BASOPHILS RELATIVE PERCENT 0 % (BEAKER) (test code = 437) NEUTROPHILS ABSOLUTE COUNT 11.82 K/ L 1.56-6.13 H (BEAKER) (test code = 670) LYMPHOCYTES ABSOLUTE COUNT 0.87 K/ L 1.18-3.74 L (BEAKER) (test code = 414) MONOCYTES ABSOLUTE COUNT (BEAKER) 0.69 K/ L 0.24-0.36 H (test code = 415) EOSINOPHILS ABSOLUTE COUNT 0.47 K/ L 0.04-0.36 H (BEAKER) (test code = 416) BASOPHILS ABSOLUTE COUNT (BEAKER) 0.03 K/ L 0.01-0.08 (test code = 417) IMMATURE GRANULOCYTES-RELATIVE 1 % 0-1 PERCENT (BEAKER) (test code = 2801) URINALYSIS W/ REFLEX URINE [id number] 02:53:00 Test Item Value Reference Range Interpretation Comments COLOR (BEAKER) (test code = 470) Yellow CLARITY (BEAKER) (test code = 469) Cloudy SPECIFIC GRAVITY UA (BEAKER) (test 1.013 1.001-1.035 code = 468) PH UA (BEAKER) (test code = 467) 7.0 5.0-8.0 PROTEIN UA (BEAKER) (test code = 300 mg/dL Negative A 464) GLUCOSE UA (BEAKER) (test code = Negative Negative 365) KETONES UA (BEAKER) (test code = Negative Negative 371) BILIRUBIN UA (BEAKER) (test code = Negative Negative 462) BLOOD UA (BEAKER) (test code = 461) Moderate Negative A NITRITE UA (BEAKER) (test code = Negative Negative 465) LEUKOCYTE ESTERASE UA (BEAKER) Large Negative A (test code = 466) UROBILINOGEN UA (BEAKER) (test code 0.2 mg/dL 0.2-1.0 = 463) RBC UA (BEAKER) (test code = 519) 15 /HPF WBC UA (BEAKER) (test code = 520) 687 /HPF SOURCE(BEAKER) (test code = 2795) CT, BRAIN, WITHOUT [id number] 00:46:00FINAL REPORT EXAM: CT head without contrast. CLINICAL HISTORY: Focal neuro deficit, new, fixed or worsening, >6 hours COMPARISON: [...] effect, herniation, hydrocephalus or large demarcated acute te rritorial infarct. The basal cisterns are patent. There [...] for acute ischemia persists. Signed: Joseline Darling MDReport Verified Date/Time: 01/24/2019 00:46:49 Reading Location: [facility] C013Y CT Body Reading Room POCT-GLUCOSE METER 2019-01-23 23:21:00 Test Item Value Reference Range Interpretation Comments POC-GLUCOSE METER 111 mg/dL 70-110 H TESTED AT [place] [address] ([facility]) (test code = [place] 1538) [id number] POCT-GLUCOSE [id number] 18:03:00 Test Item Value Reference Range Interpretation Comments POC-GLUCOSE METER 141 mg/dL 70-110 H TESTED AT [place] [address] ([facility]) (test code = [place] 1538) [id number] RAD, CHEST, 1 VIEW, NON [id number] 14:38:00Reason for exam:->edemaShould this be performed at the bedside?->YesFINAL REPORT CLINICAL HISTORY: edema TECHNIQUE: 1 view of the chest. COMPARISON: 01/22/2019 IMPRESSION: The right central line is unchanged. Left lung base consolidation is again seen with a possible trace left pleural effusion. The right lung remains relatively well-aerated. Thecardiomediastinal silhouette is within normal limits for size. Signed: Carlee Lindo MDReport Verified Date/Time: 01/23/2019 14:38:12 Reading Location: [facility] C013W Consult Reading Room CT, CTANGIO BRAIN 2019-01-23 13:43:00Reason for exam:->Symptoms onset less than 6 [...] with NASCET criteria. DOSE REDUCTION: Dose modulation, i terative reconstruction, and/or weight-based adjustment of the mA/kV was utilized to reduce the radiation dose to as low as reasonably achievable. FINDINGS:All examination series are limited by motion artifact. NONCONTRAST CT HEAD: Stable remote and deep white matter changes without interval infarct or hemorrhage. The duran-white distinction and basal ganglia appear preserved. The midline is normally positioned. There is no ventriculomegaly. No abnormal extra- axial fluid is present. Osseous structures are stable. [...] with decreased caliber but no calcific atherosclerosis. Posteri or cerebral arteries demonstrate contrast opacification beyond the [...] no major branch occlusion arising from the [place]. Atherosclerotic disease of the bifurcations [...] MDReport Verified Date/Time: 01/23/2019 13:43:17 Reading Location: [facility] C0[facility] Neuro Reading Room CT, CAROTID, [id number] 13:43:00Reason for exam:- >Symptoms onset less than 6 hours and NIHSS [...] and blood flow maps with artifact scattered b oth medially and peripherally. No distinct infarct core is present. There is no identifiable perfusion mismatch. IMPRESSION: Motion degraded exam. No discernible acute ischemic injury to the brain parenchyma. No intracranial hemorrhage. 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 Distal opacification is noted with no major branch occlusion arising from the [place]. Atherosclerotic disease of the bifurcations [...] MDReport Verified Date/Time: 01/23/2019 13:43:17 Reading Location: [facility] C0[facility] Neuro Reading Room CT, CEREBRAL PERFUSION [id number] 13:43:00Reason for exam:->Symptom onset less than 6 hours and NIHSS [...] with NASCET criteria. DOSE REDUCTION: Dose modulation, i terative reconstruction, and/or weight-based adjustment of the mA/kV was utilized to reduce the radiation dose to as low as reasonably achievable. FINDINGS:All examination series are limited by motion artifact. NONCONTRAST CT HEAD: Stable remote and deep white matter changes without interval infarct or hemorrhage. The duran-white distinction and basal ganglia appear preserved. The midline is normally positioned. There is no ventriculomegaly. No abnormal extra- axial fluid is present. Osseous structures are stable. [...] with decreased caliber but no calcific atherosclerosis. Posteri or cerebral arteries demonstrate contrast opacification beyond the [...] no major branch occlusion arising from the [place]. Atherosclerotic disease of the bifurcations [...] MDReport Verified Date/Time: 01/23/2019 13:43:17 Reading Location: [address] Neuro Reading Room BLOOD GAS, [id number] 12:48:00 Test Item Value Reference Range Interpretation Comments PH ARTERIAL (BEAKER) (test code = 7.52 7.35-7.45 H 383) PCO2 ARTERIAL (BEAKER) (test code 37 mmHg 35-45 = 384) PO2 ARTERIAL (BEAKER) (test code = 115 mmHg 80-90 H 385) O2 SATURATION ARTERIAL (BEAKER) 98.6 % 96.0-97.0 H (test code = 386) HCO3 ARTERIAL (BEAKER) (test code 30 mmol/L 21-29 H = 388) BASE EXCESS ARTERIAL (BEAKER) 6.5 mmol/L -2.0-3.0 H (test code = 387) PATIENT TEMPERATURE (BEAKER) (test 36.9 C code = 1818) FIO2 (BEAKER) (test code = 1819) 21.0 % BLOOD [id number] 12:01:00 Test Item Value Reference Range Interpretation Comments CULTURE (BEAKER) (test No growth in 5 days code = 1095) BLOOD [id number] 12:01:00 Test Item Value Reference Range Interpretation Comments CULTURE (BEAKER) (test No growth in 5 days code = 1095) POCT-GLUCOSE [id number] 11:47:00 Test Item Value Reference Range Interpretation Comments POC-GLUCOSE METER 107 mg/dL 70-110 TESTED AT [place] [address] ([facility]) (test code = [facility] 1538) [id number] POCT-GLUCOSE [id number] 10:34:00 Test Item Value Reference Range Interpretation Comments POC-GLUCOSE METER 94 mg/dL 70-110 TESTED AT [place] [address] ([facility]) (test code = [facility] [address] 1538) COMPREHENSIVE METABOLIC [id number] 06:33:00 Test Item Value Reference Range Interpretation Comments TOTAL PROTEIN 6.7 gm/dL 6.0-8.3 (BEAKER) (test code = 770) ALBUMIN (BEAKER) 3.2 g/dL 3.5-5.0 L (test code = 1145) ALKALINE PHOSPHATASE 72 U/L 40-150 (BEAKER) (test code = 346) BILIRUBIN TOTAL 0.5 mg/dL 0.2-1.2 (BEAKER) (test code = 377) SODIUM (BEAKER) (test 138 meq/L 136-145 code = 381) POTASSIUM (BEAKER) 5.6 meq/L 3.5-5.1 H (test code = 379) CHLORIDE (BEAKER) 100 meq/L 98-107 (test code = 382) CO2 (BEAKER) (test 26 meq/L 22-29 code = 355) BLOOD UREA NITROGEN 51 mg/dL 7-21 H (BEAKER) (test code = 354) CREATININE (BEAKER) 5.49 mg/dL 0.57-1.25 H (test code = 358) GLUCOSE RANDOM 115 mg/dL 70-105 H (BEAKER) (test code = 652) CALCIUM (BEAKER) 8.3 mg/dL 8.4-10.2 L (test code = 697) AST (SGOT) (BEAKER) 18 U/L 5-34 (test code = 353) ALT (SGPT) (BEAKER) 17 U/L 6-55 (test code = 347) EGFR (BEAKER) (test 9 mL/min/1.73 ESTIMAT ED GFR IS code = 1092) sq m NOT ACCURATE CREATININE CLEARANCE IN PREDICTING GLOMERULAR FILTRATION RATE . ESTIMATED GFR I S NOT APPLICABLE FOR DIALYSIS PATIEN TS. [id number] 06:18:00 Test Item Value Reference Range Interpretation Comments PHOSPHORUS (BEAKER) (test code = 7.1 mg/dL 2.3-4.7 H 604) [id number] 06:18:00 Test Item Value Reference Range Interpretation Comments MAGNESIUM (BEAKER) (test code = 2.0 mg/dL 1.6-2.6 627) CBC W/PLT COUNT & AUTO [id number] 06:05:00 Test Item Value Reference Range Interpretation Comments WHITE BLOOD CELL COUNT (BEAKER) 15.5 K/ L 3.5-10.5 H (test code = 775) RED BLOOD CELL COUNT (BEAKER) 3.03 M/ L 3.93-5.22 L (test code = 761) HEMOGLOBIN (BEAKER) (test code = 8.5 GM/DL 11.2-15.7 L 410) HEMATOCRIT (BEAKER) (test code = 27.1 % 34.1-44.9 L 411) MEAN CORPUSCULAR VOLUME (BEAKER) 89.4 fL 79.4-94.8 (test code = 753) MEAN CORPUSCULAR HEMOGLOBIN 28.1 pg 25.6-32.2 (BEAKER) (test code = 751) MEAN CORPUSCULAR HEMOGLOBIN CONC 31.4 GM/DL 32.2-35.5 L (BEAKER) (test code = 752) RED CELL DISTRIBUTION WIDTH 16.8 % 11.7-14.4 H (BEAKER) (test code = 412) PLATELET COUNT (BEAKER) (test 140 K/CU MM 150-450 L code = 756) MEAN PLATELET VOLUME (BEAKER) 10.6 fL 9.4-12.3 (test code = 754) NUCLEATED RED BLOOD CELLS 0 /100 WBC 0-0 (BEAKER) (test code = 413) NEUTROPHILS RELATIVE PERCENT 87 % (BEAKER) (test code = 429) LYMPHOCYTES RELATIVE PERCENT 5 % (BEAKER) (test code = 430) MONOCYTES RELATIVE PERCENT 6 % (BEAKER) (test code = 431) EOSINOPHILS RELATIVE PERCENT 1 % (BEAKER) (test code = 432) BASOPHILS RELATIVE PERCENT 0 % (BEAKER) (test code = 437) NEUTROPHILS ABSOLUTE COUNT 13.58 K/ L 1.56-6.13 H (BEAKER) (test code = 670) LYMPHOCYTES ABSOLUTE COUNT 0.71 K/ L 1.18-3.74 L (BEAKER) (test code = 414) MONOCYTES ABSOLUTE COUNT (BEAKER) 0.98 K/ L 0.24-0.36 H (test code = 415) EOSINOPHILS ABSOLUTE COUNT 0.11 K/ L 0.04-0.36 (BEAKER) (test code = 416) BASOPHILS ABSOLUTE COUNT (BEAKER) 0.05 K/ L 0.01-0.08 (test code = 417) IMMATURE GRANULOCYTES-RELATIVE 1 % 0-1 PERCENT (BEAKER) (test code = 2801) CALCIUM, [id number] 05:50:00 Test Item Value Reference Range Interpretation Comments CALCIUM IONIZED (BEAKER) (test 1.00 mmol/L 1.12-1.27 L code = 698) PH, BLOOD (BEAKER) (test code = 7.35 1810) POCT-GLUCOSE [id number] 21:50:00 Test Item Value Reference Range Interpretation Comments POC-GLUCOSE METER 138 mg/dL 70-110 H TESTED AT [place] [address] ([facility]) (test code = [facility] 1538) [address] POCT-GLUCOSE [id number] 18:02:00 Test Item Value Reference Range Interpretation Comments POC-GLUCOSE METER 147 mg/dL 70-110 H TESTED AT [facility] [address] [facility] (test code = [facility] 1538) [address] RAD, PELVIS, 1 OR 2 [id number] 15:58:00Reason for exam:->postop ORIFShould this be performed at the bedside?->YesFINAL REPORT CLINICAL HISTORY: postop ORIF TECHNIQUE: AP pelvis COMPARISON: IMPRESSION: The patient is status post side plate and screw fixation of comminuted fracture through the left pelvis involving the acetabulum. There is improved postsurgical alignment on the single frontal view. There is a surgical drain in place. Signed: Carlee Lindo MDReport Verified Date/Time: 01/22/2019 15:58:10 Reading Location: [facility] C013 Consult Reading Room POCT-GLUCOSE METER 2019-01-22 15:40:00 Test Item Value Reference Range Interpretation Comments POC-GLUCOSE METER 134 mg/dL 70-110 H TESTED AT [facility] [address] ([facility]) (test code = [place] [address]) [address] [place] STENOGRAPHER IN OR/30 MINUTE [id number] 14:40:00Reason for exam:- >left acetabulum fractureFINAL REPORT Intraoperative fluoroscopy films performed [...] did not perform fluoroscopy. Signed: Carlee Lindo MDReport Verified Date/Time: 01/22/2019 14:40:54 Reading Location: [facility] B1 C013 Consult Reading Room RAD, CHEST, 1 VIEW, NON [id number] 09:05:00Reason for exam:->post extubationShould this be performed at the bedside?->YesFINAL REPORT CLINICAL HISTORY: post extubation TECHNIQUE: 1 view of the chest. COMPARISON: 01/21/2019 IMPRESSION: The right central line is unchanged. Left lung base consolidationis unchanged. There is no increasing pleural fluid. The cardiomediastinal silhouette is magnified bytechnique. Signed: Carlee Lindo MDReport Verified Date/Time: 01/22/2019 09:05:30 Reading Location:[facility] Radiology Reading Room POCT-GLUCOSE [id number] 08:37:00 Test Item Value Reference Range Interpretation Comments POC-GLUCOSE METER 115 mg/dL 70-110 H TESTED AT [facility] [address] (BEAKER) (test code = [place] 1538) [id number] COMPREHENSIVE METABOLIC [id number] 06:11:00 Test Item Value Reference Range Interpretation Comments TOTAL PROTEIN 6.7 gm/dL 6.0-8.3 (BEAKER) (test code = 770) ALBUMIN (BEAKER) 3.2 g/dL 3.5-5.0 L (test code = 1145) ALKALINE PHOSPHATASE 68 U/L 40-150 (BEAKER) (test code = 346) BILIRUBIN TOTAL 0.5 mg/dL 0.2-1.2 (BEAKER) (test code = 377) SODIUM (BEAKER) (test 139 meq/L 136-145 code = 381) POTASSIUM (BEAKER) 4.7 meq/L 3.5-5.1 (test code = 379) CHLORIDE (BEAKER) 101 meq/L 98-107 (test code = 382) CO2 (BEAKER) (test 29 meq/L 22-29 code = 355) BLOOD UREA NITROGEN 36 mg/dL 7-21 H (BEAKER) (test code = 354) CREATININE (BEAKER) 4.24 mg/dL 0.57-1.25 H (test code = 358) GLUCOSE RANDOM 105 mg/dL 70-105 (BEAKER) (test code = 652) CALCIUM (BEAKER) 8.4 mg/dL 8.4-10.2 (test code = 697) AST (SGOT) (BEAKER) 16 U/L 5-34 (test code = 353) ALT (SGPT) (BEAKER) 27 U/L 6-55 (test code = 347) EGFR (BEAKER) (test 13 mL/min/1.73 ESTIMA RONAL GFR IS code = 1092) sq m NOT ACCURATE CREATININE CLEARANCE IN PREDICTING GLOMERULAR FILTRATION RATE . ESTIMATED GFR I S NOT APPLICABLE FOR DIALYSIS PATIEN TS. [id number] 06:10:00 Test Item Value Reference Range Interpretation Comments PHOSPHORUS (BEAKER) (test code = 5.2 mg/dL 2.3-4.7 H 604) [id number] 06:10:00 Test Item Value Reference Range Interpretation Comments MAGNESIUM (BEAKER) (test code = 2.1 mg/dL 1.6-2.6 627) CBC W/PLT COUNT & AUTO [id number] 05:36:00 Test Item Value Reference Range Interpretation Comments WHITE BLOOD CELL COUNT (BEAKER) 11.7 K/ L 3.5-10.5 H (test code = 775) RED BLOOD CELL COUNT (BEAKER) 2.75 M/ L 3.93-5.22 L (test code = 761) HEMOGLOBIN (BEAKER) (test code = 8.0 GM/DL 11.2-15.7 L 410) HEMATOCRIT (BEAKER) (test code = 25.9 % 34.1-44.9 L 411) MEAN CORPUSCULAR VOLUME (BEAKER) 94.2 fL 79.4-94.8 (test code = 753) MEAN CORPUSCULAR HEMOGLOBIN 29.1 pg 25.6-32.2 (BEAKER) (test code = 751) MEAN CORPUSCULAR HEMOGLOBIN CONC 30.9 GM/DL 32.2-35.5 L (BEAKER) (test code = 752) RED CELL DISTRIBUTION WIDTH 15.9 % 11.7-14.4 H (BEAKER) (test code = 412) PLATELET COUNT (BEAKER) (test 121 K/CU MM 150-450 L code = 756) MEAN PLATELET VOLUME (BEAKER) 10.9 fL 9.4-12.3 (test code = 754) NUCLEATED RED BLOOD CELLS 0 /100 WBC 0-0 (BEAKER) (test code = 413) NEUTROPHILS RELATIVE PERCENT 80 % (BEAKER) (test code = 429) LYMPHOCYTES RELATIVE PERCENT 6 % (BEAKER) (test code = 430) MONOCYTES RELATIVE PERCENT 7 % (BEAKER) (test code = 431) EOSINOPHILS RELATIVE PERCENT 6 % (BEAKER) (test code = 432) BASOPHILS RELATIVE PERCENT 0 % (BEAKER) (test code = 437) NEUTROPHILS ABSOLUTE COUNT 9.37 K/ L 1.56-6.13 H (BEAKER) (test code = 670) LYMPHOCYTES ABSOLUTE COUNT 0.74 K/ L 1.18-3.74 L (BEAKER) (test code = 414) MONOCYTES ABSOLUTE COUNT (BEAKER) 0.85 K/ L 0.24-0.36 H (test code = 415) EOSINOPHILS ABSOLUTE COUNT 0.64 K/ L 0.04-0.36 H (BEAKER) (test code = 416) BASOPHILS ABSOLUTE COUNT (BEAKER) 0.04 K/ L 0.01-0.08 (test code = 417) IMMATURE GRANULOCYTES-RELATIVE 1 % 0-1 PERCENT (BEAKER) (test code = 2801) BLOOD [id number] 20:01:00 Test Item Value Reference Range Interpretation Comments CULTURE (BEAKER) (test No growth in 5 days code = 1095) POCT-GLUCOSE [id number] 18:30:00 Test Item Value Reference Range Interpretation Comments POC-GLUCOSE METER 147 mg/dL 70-110 H TESTED AT [facility] [facility] 1538) [address] POCT-GLUCOSE [id number] 13:50:00 Test Item Value Reference Range Interpretation Comments POC-GLUCOSE METER 159 mg/dL 70-110 H TESTED AT [facility] [address] ([facility]) (test code = [facility] [place] [facility] 1538) [address] RAD, PELVIS, 1 OR 2 [id number] 12:51:00Reason for exam:->s/p L distal femur traction pinFINAL REPORT TECHNIQUE: One or two views of the pelvis. INDICATION: s/p L distal femur traction pin. COMPARISON: None. FINDINGS/IMPRESSION: The alignment of the left acetabular fracture, left parasymphyseal pubic bone, left inferior pubic ramus, and left superior pubic ramus fractures is unchanged compared the prior. Calcification of the pelvic and lower extremity vasculature. Signed: Lyndsay Samayoa MDReport Verified Date/Time: 01/21/2019 12:51:37 Reading Location: [facility] C013Y CT Body Reading Room CT, PELVIS, WO [id number] 09:49:00FINAL REPORT CT of the pelvis without contrast History: Pelvis trauma, fx known or suspected, xray insufficient Comparisons: Radiograph dated January 21, 2019 Technique: CT of the pe lvis was performed without contrast. Axial images were [...] Chu MDReport Verified Date/Time: 01/21/201909:49:33 Reading Location: [facility] C013V Neuro Reading Room POCT-GLUCOSE [id number] 08:57:00 Test Item Value Reference Range Interpretation Comments POC-GLUCOSE METER 176 mg/dL 70-110 H TESTED AT [facility] [address] ([facility]) (test code = [place] 1538) [address] CBC W/PLT COUNT & AUTO [id number] 08:19:00 Test Item Value Reference Range Interpretation Comments WHITE BLOOD CELL COUNT (BEAKER) 14.3 K/ L 3.5-10.5 H (test code = 775) RED BLOOD CELL COUNT (BEAKER) 2.91 M/ L 3.93-5.22 L (test code = 761) HEMOGLOBIN (BEAKER) (test code = 8.4 GM/DL 11.2-15.7 L 410) HEMATOCRIT (BEAKER) (test code = 27.4 % 34.1-44.9 L 411) MEAN CORPUSCULAR VOLUME (BEAKER) 94.2 fL 79.4-94.8 (test code = 753) MEAN CORPUSCULAR HEMOGLOBIN 28.9 pg 25.6-32.2 (BEAKER) (test code = 751) MEAN CORPUSCULAR HEMOGLOBIN CONC 30.7 GM/DL 32.2-35.5 L (BEAKER) (test code = 752) RED CELL DISTRIBUTION WIDTH 15.8 % 11.7-14.4 H (BEAKER) (test code = 412) PLATELET COUNT (BEAKER) (test 124 K/CU MM 150-450 L code = 756) MEAN PLATELET VOLUME (BEAKER) 10.8 fL 9.4-12.3 (test code = 754) NUCLEATED RED BLOOD CELLS 0 /100 WBC 0-0 (BEAKER) (test code = 413) NEUTROPHILS RELATIVE PERCENT 87 % (BEAKER) (test code = 429) LYMPHOCYTES RELATIVE PERCENT 3 % (BEAKER) (test code = 430) MONOCYTES RELATIVE PERCENT 8 % (BEAKER) (test code = 431) EOSINOPHILS RELATIVE PERCENT 1 % (BEAKER) (test code = 432) BASOPHILS RELATIVE PERCENT 0 % (BEAKER) (test code = 437) NEUTROPHILS ABSOLUTE COUNT 12.34 K/ L 1.56-6.13 H (BEAKER) (test code = 670) LYMPHOCYTES ABSOLUTE COUNT 0.42 K/ L 1.18-3.74 L (BEAKER) (test code = 414) MONOCYTES ABSOLUTE COUNT (BEAKER) 1.20 K/ L 0.24-0.36 H (test code = 415) EOSINOPHILS ABSOLUTE COUNT 0.14 K/ L 0.04-0.36 (BEAKER) (test code = 416) BASOPHILS ABSOLUTE COUNT (BEAKER) 0.03 K/ L 0.01-0.08 (test code = 417) IMMATURE GRANULOCYTES-RELATIVE 1 % 0-1 PERCENT (BEAKER) (test code = 2801) RAD, PELVIS, 1 OR 2 [id number] 08:17:00Reason for exam:->L acetabulum fx FINAL REPORT Technique: Multiple views of the pelvis, [...] Vascular calcifications are seen. Signed: Claudio Junior [facility] Verified Date/Time: 01/21/2019 08:17:20 Reading Location: [address] Transitional Reading Room RAD, FEMUR, MIN. 2 VIEWS, [id number] 08:17:00Reason for exam:->L thigh pain after in-hospital fallFINAL REPORT Technique: Multiple views of the [...] Vascular calcifications are seen. Signed: Claudio [facility] Verified Date/Time: 01/21/2019 08:17:20 Reading Location: [facility] Transitional Reading Room RAD, LEG, [id number] 08:17:00Reason for exam:->L tib/fib pain after in [...] seen. Signed: Claudio Junior MDReport Verified Date/Time: 01/21/2019 08:17:20 Reading Location: [facility] C013 Transitional Reading Room COMPREHENSIVE METABOLIC [id number] 07:41:00 Test Item Value Reference Range Interpretation Comments TOTAL PROTEIN 6.8 gm/dL 6.0-8.3 (BEAKER) (test code = 770) ALBUMIN (BEAKER) 3.3 g/dL 3.5-5.0 L (test code = 1145) ALKALINE PHOSPHATASE 73 U/L 40-150 (BEAKER) (test code = 346) BILIRUBIN TOTAL 0.6 mg/dL 0.2-1.2 (BEAKER) (test code = 377) SODIUM (BEAKER) (test 137 meq/L 136-145 code = 381) POTASSIUM (BEAKER) 4.0 meq/L 3.5-5.1 (test code = 379) CHLORIDE (BEAKER) 99 meq/L 98-107 (test code = 382) CO2 (BEAKER) (test 29 meq/L 22-29 code = 355) BLOOD UREA NITROGEN 21 mg/dL 7-21 (BEAKER) (test code = 354) CREATININE (BEAKER) 2.88 mg/dL 0.57-1.25 H (test code = 358) GLUCOSE RANDOM 154 mg/dL 70-105 H (BEAKER) (test code = 652) CALCIUM (BEAKER) 8.5 mg/dL 8.4-10.2 (test code = 697) AST (SGOT) (BEAKER) 22 U/L 5-34 (test code = 353) ALT (SGPT) (BEAKER) 40 U/L 6-55 (test code = 347) EGFR (BEAKER) (test 20 mL/min/1.73 ESTIMA RONAL GFR IS code = 1092) sq m NOT ACCURATE CREATININE CLEARANCE IN PREDICTING GLOMERULAR FILTRATION RATE . ESTIMATED GFR I S NOT APPLICABLE FOR DIALYSIS PATIEN TS. [id number] 07:32:00 Test Item Value Reference Range Interpretation Comments PHOSPHORUS (BEAKER) (test code = 3.5 mg/dL 2.3-4.7 604) [id number] 07:32:00 Test Item Value Reference Range Interpretation Comments MAGNESIUM (BEAKER) (test code = 1.8 mg/dL 1.6-2.6 627) VANCOMYCIN LEVEL, [id number] 07:30:00 Test Item Value Reference Range Interpretation Comments VANCOMYCIN RANDOM (BEAKER) (test 13.5 ug/mL code = 523) Reference Range: No NormalsCALCIUM, [id number] 07:07:00 Test Item Value Reference Range Interpretation Comments CALCIUM IONIZED (BEAKER) (test 0.97 mmol/L 1.12-1.27 L code = 698) PH, BLOOD (BEAKER) (test code = 7.43 1810) RAD, KNEE, 3 VIEWS, [id number] 04:15:00Reason for exam:->fallFINAL REPORT RAD, KNEE, 3 VIEWS, LEFT CLINICAL INDICATION: fall COMPARISON: None FINDINGS: Frontal, oblique and cross table lateral views of the left knee were obtained. There is no acute fracture or dislocation. The joint space are maintained. There are vascular calcifications. IMPRESSION: No acute fracture or dislocation. Signed: Joseline Darling Verified Date/Time: 01/21/2019 04:15:52 Reading Location: [address] Body Reading Room RAD, HIP, 2 VIEWS, [id number] 04:06:00Reason for exam:->FallFINAL REPORT RAD, HIP, 2 VIEWS, LEFT CLINICAL INDICATION: Fall COMPARISON: None FINDINGS: Frontal and frog-leg lateral views of the left hip were obtained. There is a mildlydisplaced acute fracture of the superior pubic ramus. There is a comminuted left acetabular fracturewith acetabular protrusio. The left sacroiliac joint is patent. The left proximal femur is intact. IM PRESSION: Acute fractures of the left superior pubic ramus and left acetabulum. Signed: Joseline Darling Verified Date/Time: 01/21/2019 04:06:53 Reading Location: [address] Body ReadingRoom RAD, CHEST, 2 [id number] 04:04:00Reason for exam:->fallFINAL REPORT Exam: Chest x-ray, [...] demineralized but otherwise unremarkable. Signed: Joseline Darling MDReport Verified Date/Time: 01/21/2019 04:04:05Reading Location: [address] Body Reading Room CT, BRAIN, WITHOUT [id number] 03:40:00FINAL REPORT EXAM: CT head without contrast. CLINICAL [...] intracranial hemorrhage, extra-axial fluid collection, mass effect, h erniation, hydrocephalus or large demarcated acute territorial infarct. The basal cisterns are patent. There are bilateral lens replacements. The visualized paranasal sinuses and tympanomastoid cavities are clear. The skull base and calvarium are intact. IMPRESSION: Mild white matter microvascular ischemic changes. Chronic bilateral caudate head lacunar infarcts. No acute intracranial hemorrhage, extra-axial fluid collection or calvarial fracture. Signed: Joseline Darling MDReport Verified Date/Time: 01/21/2019 03:40:38 Reading Location: [facility] C013Y [place] Body Reading Room POCT-GLUCOSE [id number] 02:33:00 Test Item Value Reference Range Interpretation Comments POC-GLUCOSE METER 124 mg/dL 70-110 H TESTED AT [place] [address] ([facility]) (test code = [facility] 1538) [id number] POCT-GLUCOSE [id number] 18:31:00 Test Item Value Reference Range Interpretation Comments POC-GLUCOSE METER 120 mg/dL 70-110 H TESTED AT [place] [address] ([facility]) (test code = [facility] 1538) [id number] POCT-GLUCOSE [id number] 13:05:00 Test Item Value Reference Range Interpretation Comments POC-GLUCOSE METER 107 mg/dL 70-110 TESTED AT [place] [address] ([facility]) (test code = [facility] 1538) [address] BLOOD [id number] 09:39:00 Test Item Value Reference Range Interpretation Comments CULTURE A From Anaerobic Bottle ([facility]) (test Only Coagulas e negative code = 1095) Staphylococcuso f a second type GRAM STAIN From aerobic and RESULT (AKER) anaerobic (test code = bottles: gram 1123) positive cocci in pairs and clusters [id number] 05:14:00 Test Item Value Reference Range Interpretation Comments PHOSPHORUS (BEAKER) (test code = 6.0 mg/dL 2.3-4.7 H 604) [id number] 05:14:00 Test Item Value Reference Range Interpretation Comments MAGNESIUM (BEAKER) (test code = 2.3 mg/dL 1.6-2.6 627) COMPREHENSIVE METABOLIC [id number] 05:14:00 Test Item Value Reference Range Interpretation Comments TOTAL PROTEIN 5.9 gm/dL 6.0-8.3 L (BEAKER) (test code = 770) ALBUMIN (BEAKER) 2.9 g/dL 3.5-5.0 L (test code = 1145) ALKALINE PHOSPHATASE 68 U/L 40-150 (BEAKER) (test code = 346) BILIRUBIN TOTAL 0.6 mg/dL 0.2-1.2 (BEAKER) (test code = 377) SODIUM (BEAKER) (test 142 meq/L 136-145 code = 381) POTASSIUM (BEAKER) 4.4 meq/L 3.5-5.1 (test code = 379) CHLORIDE (BEAKER) 106 meq/L 98-107 (test code = 382) CO2 (BEAKER) (test 23 meq/L 22-29 code = 355) BLOOD UREA NITROGEN 33 mg/dL 7-21 H (BEAKER) (test code = 354) CREATININE (BEAKER) 3.90 mg/dL 0.57-1.25 H (test code = 358) GLUCOSE RANDOM 88 mg/dL 70-105 (BEAKER) (test code = 652) CALCIUM (BEAKER) 8.4 mg/dL 8.4-10.2 (test code = 697) AST (SGOT) (BEAKER) 20 U/L 5-34 (test code = 353) ALT (SGPT) (BEAKER) 42 U/L 6-55 (test code = 347) EGFR (BEAKER) (test 14 mL/min/1.73 ESTIMA RONAL GFR IS code = 1092) sq m NOT ACCURATE CREATININE CLEARANCE IN PREDICTING GLOMERULAR FILTRATION RATE . ESTIMATED GFR I S NOT APPLICABLE FOR DIALYSIS PATIEN TS. CBC W/PLT COUNT & AUTO [id number] 04:46:00 Test Item Value Reference Range Interpretation Comments WHITE BLOOD CELL COUNT (BEAKER) 13.4 K/ L 3.5-10.5 H (test code = 775) RED BLOOD CELL COUNT (BEAKER) 2.73 M/ L 3.93-5.22 L (test code = 761) HEMOGLOBIN (BEAKER) (test code = 8.0 GM/DL 11.2-15.7 L 410) HEMATOCRIT (BEAKER) (test code = 25.4 % 34.1-44.9 L 411) MEAN CORPUSCULAR VOLUME (BEAKER) 93.0 fL 79.4-94.8 (test code = 753) MEAN CORPUSCULAR HEMOGLOBIN 29.3 pg 25.6-32.2 (BEAKER) (test code = 751) MEAN CORPUSCULAR HEMOGLOBIN CONC 31.5 GM/DL 32.2-35.5 L (BEAKER) (test code = 752) RED CELL DISTRIBUTION WIDTH 15.6 % 11.7-14.4 H (BEAKER) (test code = 412) PLATELET COUNT (BEAKER) (test 118 K/CU MM 150-450 L code = 756) MEAN PLATELET VOLUME (BEAKER) 10.6 fL 9.4-12.3 (test code = 754) NUCLEATED RED BLOOD CELLS 0 /100 WBC 0-0 (BEAKER) (test code = 413) NEUTROPHILS RELATIVE PERCENT 85 % (BEAKER) (test code = 429) LYMPHOCYTES RELATIVE PERCENT 4 % (BEAKER) (test code = 430) MONOCYTES RELATIVE PERCENT 9 % (BEAKER) (test code = 431) EOSINOPHILS RELATIVE PERCENT 0 % (BEAKER) (test code = 432) BASOPHILS RELATIVE PERCENT 0 % (BEAKER) (test code = 437) NEUTROPHILS ABSOLUTE COUNT 11.43 K/ L 1.56-6.13 H (BEAKER) (test code = 670) LYMPHOCYTES ABSOLUTE COUNT 0.55 K/ L 1.18-3.74 L (BEAKER) (test code = 414) MONOCYTES ABSOLUTE COUNT (BEAKER) 1.25 K/ L 0.24-0.36 H (test code = 415) EOSINOPHILS ABSOLUTE COUNT 0.05 K/ L 0.04-0.36 (BEAKER) (test code = 416) BASOPHILS ABSOLUTE COUNT (BEAKER) 0.03 K/ L 0.01-0.08 (test code = 417) IMMATURE GRANULOCYTES-RELATIVE 1 % 0-1 PERCENT (BEAKER) (test code = 2801) CALCIUM, [id number] 04:40:00 Test Item Value Reference Range Interpretation Comments CALCIUM IONIZED (BEAKER) (test 1.11 mmol/L 1.12-1.27 L code = 698) PH, BLOOD (BEAKER) (test code = 7.42 1810) [id number] 04:32:00 Test Item Value Reference Range Interpretation Comments PHOSPHORUS (BEAKER) (test code = 6.0 mg/dL 2.3-4.7 H 604) [id number] 04:32:00 Test Item Value Reference Range Interpretation Comments MAGNESIUM (BEAKER) (test code = 2.2 mg/dL 1.6-2.6 627) COMPREHENSIVE METABOLIC [id number] 04:32:00 Test Item Value Reference Range Interpretation Comments TOTAL PROTEIN 6.2 gm/dL 6.0-8.3 (BEAKER) (test code = 770) ALBUMIN (BEAKER) 2.9 g/dL 3.5-5.0 L (test code = 1145) ALKALINE PHOSPHATASE 70 U/L 40-150 (BEAKER) (test code = 346) BILIRUBIN TOTAL 0.6 mg/dL 0.2-1.2 (BEAKER) (test code = 377) SODIUM (BEAKER) (test 143 meq/L 136-145 code = 381) POTASSIUM (BEAKER) 4.6 meq/L 3.5-5.1 (test code = 379) CHLORIDE (BEAKER) 107 meq/L 98-107 (test code = 382) CO2 (BEAKER) (test 23 meq/L 22-29 code = 355) BLOOD UREA NITROGEN 33 mg/dL 7-21 H (BEAKER) (test code = 354) CREATININE (BEAKER) 3.87 mg/dL 0.57-1.25 H (test code = 358) GLUCOSE RANDOM 91 mg/dL 70-105 (BEAKER) (test code = 652) CALCIUM (BEAKER) 8.6 mg/dL 8.4-10.2 (test code = 697) AST (SGOT) (BEAKER) 25 U/L 5-34 (test code = 353) ALT (SGPT) (BEAKER) 43 U/L 6-55 (test code = 347) EGFR (BEAKER) (test 14 mL/min/1.73 ESTIMA RONAL GFR IS code = 1092) sq m NOT ACCURATE CREATININE CLEARANCE IN PREDICTING GLOMERULAR FILTRATION RATE . ESTIMATED GFR I S NOT APPLICABLE FOR DIALYSIS PATIEN TS. POCT-GLUCOSE [id number] 00:04:00 Test Item Value Reference Range Interpretation Comments POC-GLUCOSE METER 131 mg/dL 70-110 H TESTED AT [facility] (test code = [place] 1538) [address] POCT-GLUCOSE [id number] 17:32:00 Test Item Value Reference Range Interpretation Comments POC-GLUCOSE METER 132 mg/dL 70-110 [facility] (test code = [place] 1538) [address] POCT-GLUCOSE [id number] 13:12:00 Test Item Value Reference Range Interpretation Comments POC-GLUCOSE METER 79 mg/dL 70-110 TESTED AT [facility] [address] ([place]) (test code = [place] [address] 1538) BLOOD CULTURE IDENTIFICATION [id number] 11:47:00 Test Item Value Reference Range Interpretation Comments LISTERIA MONOCYTOGENES Not detected Not detected (test code = 4125054) STAPHYLOCOCCUS (test Detected Not detected A Coagula se negative code = 1652136) Staph specie s (CoNS)- methicillin resistantFirst- mariel e therapy: Vancomycin MecA DETECTED Possib le contamination. The likelihood of pathogenicity i s increased if th e organism is observed in multiple blood cultures obtain ed from separate venipunctures. Reference Range : Not Detected STAPHYLOCOCCUS AUREUS Not detected Not detected (test code = 6504836) STREPTOCOCCUS (test code Not detected Not detected = 1341581) STREPTOCOCCUS AGALACTIAE Not detected Not detected (GROUP B) (test code = 3821580) STREPTOCOCCUS PNEUMONIAE Not detected Not detected (test code = 9484380) STREPTOCOCCUS PYOGENES Not detected Not detected (GROUP A) (test code = 9699977) ACINETOBACTER BAUMANNII Not detected Not detected (test code = 9268145) HAEMOPHILUS INFLUENZAE Not detected Not detected (test code = 8347684) NEISSERIA MENINGITIDIS Not detected Not detected (test code = 0247226) ENTEROBACTERIACEAE (test Not detected Ple ase refer to code = 1968226) culture resu lts for ID and susceptibilitie s.. ENTEROBACTER CLOACOE Not detected Not detected COMPLEX (test code = 6693124) KLEBSIELLA OXYTOCA (test Not detected Not detected code = 3200745) KLEBSIELLA PNEUMONIAE Not detected Not detected (test code = 1650) PROTEUS (test code = Not detected Not detected 0932796) SERRATIA MARCESCENS Not detected Not detected (test code = 6045035) ARACELI ALBICANS (test Not detected Not detected code = 1129664) ARACELI GLABRATA (test Not detected Not detected code = 6329366) ARACELI KRUSEI (test Not detected Not detected code = 7872931) ARACELI PARAPSILOSIS Not detected Not detected (test code = 3268860) ARACELI TROPICALIS (test Not detected Not detected code = 8031180) ESCHERICHIA COLI (test Not detected Not detected code = 5794035) METHICILLIN-RESISTANCE Detected Not detected A GENE (test code = 7220152) VANCOMYCIN-RESISTANCE Not detected GENE (test code = 3054226) CARBAPENEM-RESISTANCE Not detected Please refer to GENE (test code = culture re sults 0715613) for ID and susceptibilitie s.. ENTEROCOCCUS-BEAKER Not detected Not detected (test code = 7232008) PSEUDOMONAS Not detected Not detected AERUGINOSA-BEAKER (test code = 0748113) Other bacteria and resistance markers not targeted by this PCR panel cannot be excluded; therefore clinical correlation and follow up of serology, culture results, and other molecular studies is required. The results are not intended to be used as the sole means for clinical diagnosis or patient management decisions. This sample was tested at the [facility] Molecular Diagnostics Laboratory using the Wattpad Blood Culture ID Panel. It is FDA cleared and has been verified and approved by the [facility] for clinical use. This laboratory is CLIA-certified and College ofAmerican Pathologists (CAP)-accredited to perform high complexity testing.SPUTUM CULTURE + GRAM [id number] 10:05:00 Test Item Value Reference Range Interpretation Comments CULTURE (BEAKER) 2+ Normal respiratory (test code = 1095) laquita present GRAM STAIN RESULT 2+ WBCs (BEAKER) (test code = 1123) GRAM STAIN RESULT 0-5 epithelial cells (BEAKER) (test code = 82892) GRAM STAIN RESULT 2+ gram positive cocci (BEAKER) (test code = in chains, pairs and 17182) clusters RAD, CHEST, 1 VIEW, NON [id number] 07:28:00Reason for exam:- >intubatedShould this be performed at the bedside?->YesFINAL REPORT Chest one view. Clinical history: intubated Comparison: 01/18/2019 Discussion: A frontal chest is provided. Cardiomediastinal contours are unchanged. Lines and tubes are in stable position. Unchanged retrocardiac opacity. No new consolidation. No pneumothorax orlarge effusion. Signed: Faiza Chu Verified Date/Time: 01/19/2019 07:28:52 Reading Location:[facility] Radiology Reading Room COMPREHENSIVE METABOLIC [id number] 06:18:00 Test Item Value Reference Range Interpretation Comments TOTAL PROTEIN 6.0 gm/dL 6.0-8.3 (BEAKER) (test code = 770) ALBUMIN (BEAKER) 2.9 g/dL 3.5-5.0 L (test code = 1145) ALKALINE PHOSPHATASE 77 U/L 40-150 (BEAKER) (test code = 346) BILIRUBIN TOTAL 0.7 mg/dL 0.2-1.2 (BEAKER) (test code = 377) SODIUM (BEAKER) (test 141 meq/L 136-145 code = 381) POTASSIUM (BEAKER) 4.1 meq/L 3.5-5.1 (test code = 379) CHLORIDE (BEAKER) 106 meq/L 98-107 (test code = 382) CO2 (BEAKER) (test 25 meq/L 22-29 code = 355) BLOOD UREA NITROGEN 16 mg/dL 7-21 (BEAKER) (test code = 354) CREATININE (BEAKER) 2.34 mg/dL 0.57-1.25 H (test code = 358) GLUCOSE RANDOM 81 mg/dL 70-105 (BEAKER) (test code = 652) CALCIUM (BEAKER) 9.2 mg/dL 8.4-10.2 Repeated fo r delta (test code = 697) check AST (SGOT) (BEAKER) 35 U/L 5-34 H (test code = 353) ALT (SGPT) (BEAKER) 61 U/L 6-55 H (test code = 347) EGFR (BEAKER) (test 25 mL/min/1.73 ESTIMA RONAL GFR IS code = 1092) sq m NOT ACCURATE CREATININE CLEARANCE IN PREDICTING GLOMERULAR FILTRATION RATE . ESTIMATED GFR I S NOT APPLICABLE FOR DIALYSIS PATIEN TS. [id number] 05:50:00 Test Item Value Reference Range Interpretation Comments PHOSPHORUS (BEAKER) (test code = 2.9 mg/dL 2.3-4.7 604) [id number] 05:50:00 Test Item Value Reference Range Interpretation Comments MAGNESIUM (BEAKER) (test code = 1.7 mg/dL 1.6-2.6 627) VANCOMYCIN LEVEL, [id number] 05:50:00 Test Item Value Reference Range Interpretation Comments VANCOMYCIN RANDOM (BEAKER) (test 10.9 ug/mL code = 523) Reference Range: No NormalsCBC W/PLT COUNT & AUTO [id number] 05:25:00 Test Item Value Reference Range Interpretation Comments WHITE BLOOD CELL COUNT (BEAKER) 9.9 K/ L 3.5-10.5 (test code = 775) RED BLOOD CELL COUNT (BEAKER) 2.97 M/ L 3.93-5.22 L (test code = 761) HEMOGLOBIN (BEAKER) (test code = 8.6 GM/DL 11.2-15.7 L 410) HEMATOCRIT (BEAKER) (test code = 26.9 % 34.1-44.9 L 411) MEAN CORPUSCULAR VOLUME (BEAKER) 90.6 fL 79.4-94.8 (test code = 753) MEAN CORPUSCULAR HEMOGLOBIN 29.0 pg 25.6-32.2 (BEAKER) (test code = 751) MEAN CORPUSCULAR HEMOGLOBIN CONC 32.0 GM/DL 32.2-35.5 L (BEAKER) (test code = 752) RED CELL DISTRIBUTION WIDTH 15.5 % 11.7-14.4 H (BEAKER) (test code = 412) PLATELET COUNT (BEAKER) (test code 57 K/CU MM 150-450 L = 756) MEAN PLATELET VOLUME (BEAKER) 11.6 fL 9.4-12.3 (test code = 754) NUCLEATED RED BLOOD CELLS (BEAKER) 0 /100 WBC 0-0 (test code = 413) NEUTROPHILS RELATIVE PERCENT 81 % (BEAKER) (test code = 429) LYMPHOCYTES RELATIVE PERCENT 7 % (BEAKER) (test code = 430) MONOCYTES RELATIVE PERCENT 8 % (BEAKER) (test code = 431) EOSINOPHILS RELATIVE PERCENT 4 % (BEAKER) (test code = 432) BASOPHILS RELATIVE PERCENT 0 % (BEAKER) (test code = 437) NEUTROPHILS ABSOLUTE COUNT 8.02 K/ L 1.56-6.13 H (BEAKER) (test code = 670) LYMPHOCYTES ABSOLUTE COUNT 0.68 K/ L 1.18-3.74 L (BEAKER) (test code = 414) MONOCYTES ABSOLUTE COUNT (BEAKER) 0.74 K/ L 0.24-0.36 H (test code = 415) EOSINOPHILS ABSOLUTE COUNT 0.38 K/ L 0.04-0.36 H (BEAKER) (test code = 416) BASOPHILS ABSOLUTE COUNT (BEAKER) 0.03 K/ L 0.01-0.08 (test code = 417) IMMATURE GRANULOCYTES-RELATIVE 1 % 0-1 PERCENT (BEAKER) (test code = 2801) BLOOD GAS, [id number] 05:21:00 Test Item Value Reference Range Interpretation Comments PH ARTERIAL (BEAKER) (test code = 7.57 7.35-7.45 H 383) PCO2 ARTERIAL (BEAKER) (test code 28 mmHg 35-45 L = 384) PO2 ARTERIAL (BEAKER) (test code = 177 mmHg 80-90 H 385) O2 SATURATION ARTERIAL (BEAKER) 99.4 % 96.0-97.0 H (test code = 386) HCO3 ARTERIAL (BEAKER) (test code 25 mmol/L 21-29 = 388) BASE EXCESS ARTERIAL (BEAKER) 3.6 mmol/L -2.0-3.0 H (test code = 387) PATIENT TEMPERATURE (BEAKER) (test 36.8 C code = 1818) FIO2 (BEAKER) (test code = 1819) 40.0 % CALCIUM, [id number] 05:21:00 Test Item Value Reference Range Interpretation Comments CALCIUM IONIZED (BEAKER) (test 1.17 mmol/L 1.12-1.27 code = 698) PH, BLOOD (BEAKER) (test code = 7.57 1810) POCT-GLUCOSE [id number] 23:38:00 Test Item Value Reference Range Interpretation Comments POC-GLUCOSE METER 101 mg/dL 70-110 TESTED AT [place] [address] ([facility]) (test code = [facility] 1538) [address] POCT-GLUCOSE [id number] 18:20:00 Test Item Value Reference Range Interpretation Comments POC-GLUCOSE METER 105 mg/dL 70-110 TESTED AT [place] [address] ([facility]) (test code = [facility] 1538) [address] PROTHROMBIN [id number] 15:43:00 Test Item Value Reference Range Interpretation Comments [facility] (test code = 15.6 seconds 11.7-14.7 H 759) [facility] (test code = 370) 1.3 <=5.9 RECOMMENDED COUMADIN/WARFARIN INR THERAPY RANGESSTANDARD DOSE: 2.0 - 3.0 Includes: PROPHYLAXIS forvenous thrombosis, systemic embolization; TREATMENT for venous thrombosis and/or pulmonary embolus.HIGH RISK: Target INR is 2.5-3.5 for patients with mechanical heart valves.POCT-GLUCOSE [id number] 15:09:00 Test Item Value Reference Range Interpretation Comments POC-GLUCOSE METER 110 mg/dL 70-110 TESTED AT [facility] 67[address] (BEAKER) (test code = [place] 1538) [address] HEPATITIS B SURFACE [id number] 07:49:00 Test Item Value Reference Range Interpretation Comments HEPATITIS B SURFACE ANTIGEN (2) Nonreactive Nonreactive (BEAKER) (test code = 2585) [id number] 07:42:00 Test Item Value Reference Range Interpretation Comments PHOSPHORUS (BEAKER) (test code = 4.6 mg/dL 2.3-4.7 604) [id number] 07:42:00 Test Item Value Reference Range Interpretation Comments MAGNESIUM (BEAKER) (test code = 1.7 mg/dL 1.6-2.6 627) COMPREHENSIVE METABOLIC [id number] 07:42:00 Test Item Value Reference Range Interpretation Comments TOTAL PROTEIN 5.5 gm/dL 6.0-8.3 L (BEAKER) (test code = 770) ALBUMIN (BEAKER) 2.8 g/dL 3.5-5.0 L (test code = 1145) ALKALINE PHOSPHATASE 64 U/L 40-150 (BEAKER) (test code = 346) BILIRUBIN TOTAL 0.5 mg/dL 0.2-1.2 (BEAKER) (test code = 377) SODIUM (BEAKER) (test 140 meq/L 136-145 code = 381) POTASSIUM (BEAKER) 4.2 meq/L 3.5-5.1 (test code = 379) CHLORIDE (BEAKER) 110 meq/L 98-107 H (test code = 382) CO2 (BEAKER) (test 20 meq/L 22-29 L code = 355) BLOOD UREA NITROGEN 56 mg/dL 7-21 H (BEAKER) (test code = 354) CREATININE (BEAKER) 5.56 mg/dL 0.57-1.25 H (test code = 358) GLUCOSE RANDOM 113 mg/dL 70-105 H (BEAKER) (test code = 652) CALCIUM (BEAKER) 7.7 mg/dL 8.4-10.2 L (test code = 697) AST (SGOT) (BEAKER) 58 U/L 5-34 H (test code = 353) ALT (SGPT) (BEAKER) 72 U/L 6-55 H (test code = 347) EGFR (BEAKER) (test 9 mL/min/1.73 ESTIMAT ED GFR IS code = 1092) sq m NOT ACCURATE CREATININE CLEARANCE IN PREDICTING GLOMERULAR FILTRATION RATE . ESTIMATED GFR I S NOT APPLICABLE FOR DIALYSIS PATIEN TS. [id number] 07:01:00 Test Item Value Reference Range Interpretation Comments PARTIAL THROMBOPLASTIN TIME 83.6 seconds 22.5-36.0 H (BEAKER) (test code = 760) RAD, CHEST, 1 VIEW, NON [id number] 07:00:00Reason for exam:- >intubatedShould this be performed at the bedside?->YesFINAL REPORT [...] pneumothorax. Signed: Joseline Darling Verified Date/Time: 01/18/2019 07:00:55 Reading Location: [address] Body Reading Room CBC W/PLT COUNT & AUTO [id number] 06:59:00 Test Item Value Reference Range Interpretation Comments WHITE BLOOD CELL COUNT (BEAKER) 10.1 K/ L 3.5-10.5 (test code = 775) RED BLOOD CELL COUNT (BEAKER) 2.70 M/ L 3.93-5.22 L (test code = 761) HEMOGLOBIN (BEAKER) (test code = 7.9 GM/DL 11.2-15.7 L 410) HEMATOCRIT (BEAKER) (test code = 25.1 % 34.1-44.9 L 411) MEAN CORPUSCULAR VOLUME (BEAKER) 93.0 fL 79.4-94.8 (test code = 753) MEAN CORPUSCULAR HEMOGLOBIN 29.3 pg 25.6-32.2 (BEAKER) (test code = 751) MEAN CORPUSCULAR HEMOGLOBIN CONC 31.5 GM/DL 32.2-35.5 L (BEAKER) (test code = 752) RED CELL DISTRIBUTION WIDTH 15.9 % 11.7-14.4 H (BEAKER) (test code = 412) PLATELET COUNT (BEAKER) (test code 70 K/CU MM 150-450 L = 756) MEAN PLATELET VOLUME (BEAKER) 11.0 fL 9.4-12.3 (test code = 754) NUCLEATED RED BLOOD CELLS (BEAKER) 0 /100 WBC 0-0 (test code = 413) NEUTROPHILS RELATIVE PERCENT 80 % (BEAKER) (test code = 429) LYMPHOCYTES RELATIVE PERCENT 7 % (BEAKER) (test code = 430) MONOCYTES RELATIVE PERCENT 8 % (BEAKER) (test code = 431) EOSINOPHILS RELATIVE PERCENT 5 % (BEAKER) (test code = 432) BASOPHILS RELATIVE PERCENT 0 % (BEAKER) (test code = 437) NEUTROPHILS ABSOLUTE COUNT 8.04 K/ L 1.56-6.13 H (BEAKER) (test code = 670) LYMPHOCYTES ABSOLUTE COUNT 0.66 K/ L 1.18-3.74 L (BEAKER) (test code = 414) MONOCYTES ABSOLUTE COUNT (BEAKER) 0.81 K/ L 0.24-0.36 H (test code = 415) EOSINOPHILS ABSOLUTE COUNT 0.50 K/ L 0.04-0.36 H (BEAKER) (test code = 416) BASOPHILS ABSOLUTE COUNT (BEAKER) 0.02 K/ L 0.01-0.08 (test code = 417) IMMATURE GRANULOCYTES-RELATIVE 1 % 0-1 PERCENT (BEAKER) (test code = 2801) BLOOD GAS, [id number] 06:51:00 Test Item Value Reference Range Interpretation Comments PH ARTERIAL (BEAKER) (test code = 7.48 7.35-7.45 H 383) PCO2 ARTERIAL (BEAKER) (test code 30 mmHg 35-45 L = 384) PO2 ARTERIAL (BEAKER) (test code 229 mmHg 80-90 H = 385) O2 SATURATION ARTERIAL (BEAKER) 99.6 % 96.0-97.0 H (test code = 386) HCO3 ARTERIAL (BEAKER) (test code 22 mmol/L 21-29 = 388) BASE EXCESS ARTERIAL (BEAKER) -1.0 mmol/L -2.0-3.0 (test code = 387) PATIENT TEMPERATURE (AKER) 37.2 C (test code = 1818) FIO2 (BEAKER) (test code = 1819) 40.0 % [id number] 00:22:00 Test Item Value Reference Range Interpretation Comments POTASSIUM (BEAKER) (test code = 4.3 meq/L 3.5-5.1 379) [id number] 00:17:00 Test Item Value Reference Range Interpretation Comments PARTIAL THROMBOPLASTIN TIME 68.7 seconds 22.5-36.0 H ([facility]) (test code = 760) [id number] 20:12:00 Test Item Value Reference Range Interpretation Comments PARTIAL THROMBOPLASTIN TIME 61.8 seconds 22.5-36.0 H ([facility]) (test code = 760) POCT-GLUCOSE [id number] 18:39:00 Test Item Value Reference Range Interpretation Comments POC-GLUCOSE METER 80 mg/dL 70-110 TESTED AT [place] [address] ([facility]) (test [facility] = [facility] [id number] 1538) POCT-GLUCOSE [id number] 12:28:00 Test Item Value Reference Range Interpretation Comments POC-GLUCOSE METER 80 mg/dL 70-110 TESTED AT [place] [address] ([facility]) (test code = [facility] [place] [facility] [address] 1538) [id number] 12:12:00 Test Item Value Reference Range Interpretation Comments PARTIAL THROMBOPLASTIN TIME 65.0 seconds 22.5-36.0 H ([facility]) (test code = 760) TROPONIN [id number] 10:49:00 Test Item Value Reference Range Interpretation Comments TROPONIN I ([facility]) (test code = 0.28 ng/mL 0.00-0.03 HH 397) Troponin I (TnI) levels must be interpreted [...] acute neurological disease, and persistent tachyarrhythmia.RESPIRATORY PANEL [id number] 09:51:00 Test Item Value Reference Range Interpretation Comments HUMAN METAPNEUMOVIRUS Not detected Not detected, (BEAKER) (test code = 2683) Equivocal RHINOVIRUS (BEAKER) (test Not detected Not detected, code = 2684) Equivocal INFLUENZA A (BEAKER) (test Not detected Not detected, code = 2685) Equivocal INFLUENZA A (NO SUBTYPE) Not detected, (test code = 3606) Equivocal INFLUENZA A SUBTYPE H1 Not detected, (BEAKER) (test code = 2686) Equivocal INFLUENZA A SUBTYPE H3 Not detected, (BEAKER) (test code = 2687) Equivocal INFLUENZA A SUBTYPE H1-2009 Not detected, (BEAKER) (test code = 3198) Equivocal INFLUENZA B (BEAKER) (test Not detected Not detected, code = 2688) Equivocal RESPIRATORY SYNCYTIAL VIRUS Not detected Not detected, (BEAKER) (test code = 3199) Equivocal PARAINFLUENZA VIRUS 1 Not detected Not detected, (BEAKER) (test code = 2691) Equivocal PARAINFLUENZA VIRUS 2 Not detected Not detected, (BEAKER) (test code = 2692) Equivocal PARAINFLUENZA VIRUS 3 Not detected Not detected, (BEAKER) (test code = 2693) Equivocal PARAINFLUENZA VIRUS 4 Not detected Not detected, (BEAKER) (test code = 3200) Equivocal ADENOVIRUS (BEAKER) (test Not detected Not detected, code = 2694) Equivocal CORONAVIRUS 229E (BEAKER) Not detected Not detected, (test code = 3201) Equivocal CORONAVIRUS HKU1 (BEAKER) Not detected Not detected, (test code = 3202) Equivocal CORONAVIRUS NL63 (BEAKER) Not detected Not detected, (test code = 3203) Equivocal CORONAVIRUS OC43 (BEAKER) Not detected Not detected, (test code = 3204) Equivocal BORDETELLA PERTUSSIS Not detected Not detected, (BEAKER) (test code = 3205) Equivocal CHLAMYDOPHILA PNEUMONIAE Not detected Not detected, (BEAKER) (test code = 3206) Equivocal MYCOPLASMA PNEUMONIAE Not detected Not detected, (BEAKER) (test code = 3207) Equivocal Other viruses and bacteria not targeted by this PCR panel cannot be excluded; therefore clinical correlation and follow up of serology, culture results, and other molecular studies is required. The results are not intended to be used as the sole means for clinical diagnosis or patient management decisions. This sample was tested at the [facility] using the [employer] FilmArray Respiratory Panel. It is FDA cleared and has been verified and approved by the [facility] for clinical use on nasopharyngeal swab specimens.The performance of the FilmArrayRP has not been established in individuals who received influenza vaccine. Recent administration ofa nasal influenza vaccine may cause false positive results for Influenza A and/orInfluenza B.COMPREHENSIVE METABOLIC [id number] 05:18:00 Test Item Value Reference Range Interpretation Comments TOTAL PROTEIN 5.2 gm/dL 6.0-8.3 L Specimen sligh tly (BEAKER) (test code = hemoly zed 770) ALBUMIN (BEAKER) 2.6 g/dL 3.5-5.0 L Specimen sl ightly (test code = 1145) hemolyzed ALKALINE PHOSPHATASE 59 U/L 40-150 (BEAKER) (test code = 346) BILIRUBIN TOTAL 0.4 mg/dL 0.2-1.2 Specimen sli ghtly (BEAKER) (test code = hemoly zed 377) SODIUM (BEAKER) (test 145 meq/L 136-145 code = 381) POTASSIUM (BEAKER) 4.2 meq/L 3.5-5.1 Specimen slightly (test code = 379) hemolyzed CHLORIDE (BEAKER) 113 meq/L 98-107 H (test code = 382) CO2 (BEAKER) (test 22 meq/L 22-29 code = 355) BLOOD UREA NITROGEN 50 mg/dL 7-21 H (BEAKER) (test code = 354) CREATININE (BEAKER) 4.73 mg/dL 0.57-1.25 H Specimen slightly (test code = 358) hemolyzed GLUCOSE RANDOM 82 mg/dL 70-105 (BEAKER) (test code = 652) CALCIUM (BEAKER) 8.4 mg/dL 8.4-10.2 (test code = 697) AST (SGOT) (BEAKER) 138 U/L 5-34 H Specimen slightly (test code = 353) hemolyzed ALT (SGPT) (BEAKER) 94 U/L 6-55 H Specimen slightly (test code = 347) hemolyzed EGFR (BEAKER) (test 11 mL/min/1.73 ESTIMA RONAL GFR IS code = 1092) sq m NOT ACCURATE CREATININE CLEARANCE IN PREDICTING GLOMERULAR FILTRATION RATE . ESTIMATED GFR I S NOT APPLICABLE FOR DIALYSIS PATIEN TS. [id number] 05:17:00 Test Item Value Reference Range Interpretation Comments MAGNESIUM (BEAKER) 1.9 mg/dL 1.6-2.6 Specimen slightly (test code = 627) hemolyzed [id number] 05:17:00 Test Item Value Reference Range Interpretation Comments PHOSPHORUS (BEAKER) 4.3 mg/dL 2.3-4.7 Specimen slightly (test code = 604) hemolyzed [id number] 05:01:00 Test Item Value Reference Range Interpretation Comments PARTIAL THROMBOPLASTIN TIME 108.7 seconds 22.5-36.0 H (BEAKER) (test code = 760) CBC W/PLT COUNT & AUTO [id number] 04:48:00 Test Item Value Reference Range Interpretation Comments WHITE BLOOD CELL COUNT (BEAKER) 7.8 K/ L 3.5-10.5 (test code = 775) RED BLOOD CELL COUNT (BEAKER) 2.61 M/ L 3.93-5.22 L (test code = 761) HEMOGLOBIN (BEAKER) (test code = 7.6 GM/DL 11.2-15.7 L 410) HEMATOCRIT (BEAKER) (test code = 23.8 % 34.1-44.9 L 411) MEAN CORPUSCULAR VOLUME (BEAKER) 91.2 fL 79.4-94.8 (test code = 753) MEAN CORPUSCULAR HEMOGLOBIN 29.1 pg 25.6-32.2 (BEAKER) (test code = 751) MEAN CORPUSCULAR HEMOGLOBIN CONC 31.9 GM/DL 32.2-35.5 L (BEAKER) (test code = 752) RED CELL DISTRIBUTION WIDTH 15.7 % 11.7-14.4 H (BEAKER) (test code = 412) PLATELET COUNT (BEAKER) (test code 52 K/CU MM 150-450 L = 756) MEAN PLATELET VOLUME (BEAKER) 12.1 fL 9.4-12.3 (test code = 754) NUCLEATED RED BLOOD CELLS (BEAKER) 0 /100 WBC 0-0 (test code = 413) NEUTROPHILS RELATIVE PERCENT 74 % (BEAKER) (test code = 429) LYMPHOCYTES RELATIVE PERCENT 13 % (BEAKER) (test code = 430) MONOCYTES RELATIVE PERCENT 8 % (BEAKER) (test code = 431) EOSINOPHILS RELATIVE PERCENT 5 % (BEAKER) (test code = 432) BASOPHILS RELATIVE PERCENT 0 % (BEAKER) (test code = 437) NEUTROPHILS ABSOLUTE COUNT 5.72 K/ L 1.56-6.13 (BEAKER) (test code = 670) LYMPHOCYTES ABSOLUTE COUNT 0.98 K/ L 1.18-3.74 L (BEAKER) (test code = 414) MONOCYTES ABSOLUTE COUNT (BEAKER) 0.64 K/ L 0.24-0.36 H (test code = 415) EOSINOPHILS ABSOLUTE COUNT 0.38 K/ L 0.04-0.36 H (BEAKER) (test code = 416) BASOPHILS ABSOLUTE COUNT (BEAKER) 0.02 K/ L 0.01-0.08 (test code = 417) IMMATURE GRANULOCYTES-RELATIVE 1 % 0-1 PERCENT (BEAKER) (test code = 2801) BLOOD GAS, [id number] 04:41:00 Test Item Value Reference Range Interpretation Comments PH ARTERIAL (BEAKER) (test code = 7.48 7.35-7.45 H 383) PCO2 ARTERIAL (BEAKER) (test code 33 mmHg 35-45 L = 384) PO2 ARTERIAL (BEAKER) (test code = 238 mmHg 80-90 H 385) O2 SATURATION ARTERIAL (BEAKER) 99.6 % 96.0-97.0 H (test code = 386) HCO3 ARTERIAL (BEAKER) (test code 24 mmol/L 21-29 = 388) BASE EXCESS ARTERIAL (BEAKER) 0.5 mmol/L -2.0-3.0 (test code = 387) PATIENT TEMPERATURE (BEAKER) (test 36.5 C code = 1818) FIO2 (BEAKER) (test code = 1819) 40.0 % CALCIUM, [id number] 04:41:00 Test Item Value Reference Range Interpretation Comments CALCIUM IONIZED (BEAKER) (test 1.11 mmol/L 1.12-1.27 L code = 698) PH, BLOOD (BEAKER) (test code = 7.47 1810) RAD, CHEST, 1 VIEW, NON [id number] 04:31:00Reason for exam:- >intubatedShould this be performed at the bedside?->YesFINAL REPORT RAD, CHEST, 1 VIEW, NON DEPT INDICATION: intubated COMPARISON: Prior day's exam FINDINGS: Portable frontal view of the chest. IMPRESSION: Support Lines: ET tube tip terminates 4 cm superior to the marina. NG tube descends below the diaphragm. Dialysis catheter tip overlies the right atrium.Lungs and pleura: Bibasilar subsegmental atelectasis in left retrocardiac opacity are unchanged No pneumothorax.Heart and mediastinum: Stable contours. Additional findings: None. Signed: Dory Pride Verified Date/Time: 01/17/2019 04:31:10 Reading Location: [address] Neuro Reading Room D GAS, [id number] 01:06:00 Test Item Value Reference Range Interpretation Comments PH ARTERIAL (BEAKER) (test code = 7.49 7.35-7.45 H 383) PCO2 ARTERIAL (BEAKER) (test code 32 mmHg 35-45 L = 384) PO2 ARTERIAL (BEAKER) (test code = 193 mmHg 80-90 H 385) O2 SATURATION ARTERIAL (BEAKER) 99.4 % 96.0-97.0 H (test code = 386) HCO3 ARTERIAL (BEAKER) (test code 24 mmol/L 21-29 = 388) BASE EXCESS ARTERIAL (BEAKER) 0.5 mmol/L -2.0-3.0 (test code = 387) PATIENT TEMPERATURE (BEAKER) (test 36.7 C code = 1818) FIO2 (BEAKER) (test code = 1819) 40.0 % TROPONIN [id number] 23:17:00 Test Item Value Reference Range Interpretation Comments TROPONIN I (BEAKER) (test code = 0.41 ng/mL 0.00-0.03 HH 397) Troponin I (TnI) levels must be interpreted [...] acute neurological disease, and persistent tachyarrhythmia.BASIC METABOLIC [id number] 23:05:00 Test Item Value Reference Range Interpretation Comments SODIUM (BEAKER) 143 meq/L 136-145 (test code = 381) POTASSIUM (BEAKER) 4.2 meq/L 3.5-5.1 (test code = 379) CHLORIDE (BEAKER) 111 meq/L 98-107 H (test code = 382) CO2 (BEAKER) (test 22 meq/L 22-29 code = 355) BLOOD UREA NITROGEN 50 mg/dL 7-21 H (BEAKER) (test code = 354) CREATININE (BEAKER) 4.67 mg/dL 0.57-1.25 H (test code = 358) GLUCOSE RANDOM 94 mg/dL 70-105 (BEAKER) (test code = 652) CALCIUM (BEAKER) 8.4 mg/dL 8.4-10.2 (test code = 697) EGFR (BEAKER) (test 11 mL/min/1.73 ESTIMA RONAL GFR IS code = 1092) sq m NOT ACCURATE CREATININE CLEARANCE IN PREDICTING GLOMERULAR FILTRATION RATE . ESTIMATED GFR I S NOT APPLICABLE FOR DIALYSIS PATIEN TS. [id number] 23:04:00 Test Item Value Reference Range Interpretation Comments MAGNESIUM (BEAKER) (test code = 1.8 mg/dL 1.6-2.6 627) [id number] 22:56:00 Test Item Value Reference Range Interpretation Comments PARTIAL THROMBOPLASTIN TIME 76.2 seconds 22.5-36.0 H (BEAKER) (test code = 760) HEMOGLOBIN [id number] 22:46:00 Test Item Value Reference Range Interpretation Comments HEMOGLOBIN A1C (BEAKER) (test code = 5.2 % 4.3-6.1 368) POSSIBLE HEMOGLOBIN S VARIANT NOTED IN HEMOGLOBIN A1C CHROMATOGRAPH. SUGGEST HEMOGLOBIN ELECTROPHORESIS IF CLINICALLY INDICATED.B-TYPE NATRIURETIC FACTOR (BNP)[id number] 19:08:00 Test Item Value Reference Range Interpretation Comments B-TYPE NATRIURETIC PEPTIDE 3143 pg/mL 0-100 H (BEAKER) (test code = 700) TROPONIN [id number] 18:17:00 Test Item Value Reference Range Interpretation Comments TROPONIN I (BEAKER) (test code = 0.41 ng/mL 0.00-0.03 HH 397) Troponin I (TnI) levels must be interpreted [...] acute neurological disease, and persistent tachyarrhythmia.COMPREHENSIVE METABOLIC [id number] 18:10:00 Test Item Value Reference Range Interpretation Comments TOTAL PROTEIN 6.0 gm/dL 6.0-8.3 (BEAKER) (test code = 770) ALBUMIN (BEAKER) 3.1 g/dL 3.5-5.0 L (test code = 1145) ALKALINE PHOSPHATASE 67 U/L 40-150 (BEAKER) (test code = 346) BILIRUBIN TOTAL 0.5 mg/dL 0.2-1.2 (BEAKER) (test code = 377) SODIUM (BEAKER) (test 144 meq/L 136-145 code = 381) POTASSIUM (BEAKER) 4.5 meq/L 3.5-5.1 (test code = 379) CHLORIDE (BEAKER) 111 meq/L 98-107 H (test code = 382) CO2 (BEAKER) (test 25 meq/L 22-29 code = 355) BLOOD UREA NITROGEN 48 mg/dL 7-21 H (BEAKER) (test code = 354) CREATININE (BEAKER) 4.66 mg/dL 0.57-1.25 H (test code = 358) GLUCOSE RANDOM 107 mg/dL 70-105 H (BEAKER) (test code = 652) CALCIUM (BEAKER) 8.9 mg/dL 8.4-10.2 (test code = 697) AST (SGOT) (BEAKER) 269 U/L 5-34 H (test code = 353) ALT (SGPT) (BEAKER) 133 U/L 6-55 H (test code = 347) EGFR (BEAKER) (test 11 mL/min/1.73 ESTIMA RONAL GFR IS code = 1092) sq m NOT ACCURATE CREATININE CLEARANCE IN PREDICTING GLOMERULAR FILTRATION RATE . ESTIMATED GFR I S NOT APPLICABLE FOR DIALYSIS PATIEN TS. LIPID [id number] 18:06:00 Test Item Value Reference Range Interpretation Comments TRIGLYCERIDES (BEAKER) (test code = 87 mg/dL 540) CHOLESTEROL (BEAKER) (test code = 131 mg/dL 631) HDL CHOLESTEROL (BEAKER) (test code 39 mg/dL = 976) LDL CHOLESTEROL CALCULATED (BEAKER) 75 mg/dL (test code = 633) Triglyceride Reference Range: Low Risk <150 Borderline 150-199 High Risk 200-499 Very High Risk >=500Cholesterol Reference Range: Low Risk <200 Borderline 200-239 High Risk >240HDL Cholesterol Reference Range: Low Risk >=60 High Risk <40LDL Cholesterol Reference Range: Optimal <100 Near Optimal 100-129 Borderline 130-159 High 160-189 Very High [id number] 18:06:00 Test Item Value Reference Range Interpretation Comments MAGNESIUM (BEAKER) (test code = 1.8 mg/dL 1.6-2.6 627) [id number] 18:06:00 Test Item Value Reference Range Interpretation Comments PHOSPHORUS (BEAKER) (test code = 4.7 mg/dL 2.3-4.7 604) LACTIC ACID, [id number] 18:03:00 Test Item Value Reference Range Interpretation Comments LACTATE BLOOD VENOUS (2) (BEAKER) 0.8 mmol/L 0.5-2.2 (test code = 2872) [id number] 17:58:00 Test Item Value Reference Range Interpretation Comments PARTIAL THROMBOPLASTIN TIME 32.0 seconds 22.5-36.0 (BEAKER) (test code = 760) Prior to initiating heparinCBC W/PLT COUNT & AUTO [id number] 17:55:00 Test Item Value Reference Range Interpretation Comments WHITE BLOOD CELL COUNT (BEAKER) 9.0 K/ L 3.5-10.5 (test code = 775) RED BLOOD CELL COUNT (BEAKER) 2.98 M/ L 3.93-5.22 L (test code = 761) HEMOGLOBIN (BEAKER) (test code = 8.7 GM/DL 11.2-15.7 L 410) HEMATOCRIT (BEAKER) (test code = 27.7 % 34.1-44.9 L 411) MEAN CORPUSCULAR VOLUME (BEAKER) 93.0 fL 79.4-94.8 (test code = 753) MEAN CORPUSCULAR HEMOGLOBIN 29.2 pg 25.6-32.2 (BEAKER) (test code = 751) MEAN CORPUSCULAR HEMOGLOBIN CONC 31.4 GM/DL 32.2-35.5 L (BEAKER) (test code = 752) RED CELL DISTRIBUTION WIDTH 15.7 % 11.7-14.4 H (BEAKER) (test code = 412) PLATELET COUNT (BEAKER) (test code 53 K/CU MM 150-450 L = 756) MEAN PLATELET VOLUME (BEAKER) 10.8 fL 9.4-12.3 (test code = 754) NUCLEATED RED BLOOD CELLS (BEAKER) 0 /100 WBC 0-0 (test code = 413) NEUTROPHILS RELATIVE PERCENT 83 % (BEAKER) (test code = 429) LYMPHOCYTES RELATIVE PERCENT 6 % (BEAKER) (test code = 430) MONOCYTES RELATIVE PERCENT 9 % (BEAKER) (test code = 431) EOSINOPHILS RELATIVE PERCENT 1 % (BEAKER) (test code = 432) BASOPHILS RELATIVE PERCENT 0 % (BEAKER) (test code = 437) NEUTROPHILS ABSOLUTE COUNT 7.41 K/ L 1.56-6.13 H (BEAKER) (test code = 670) LYMPHOCYTES ABSOLUTE COUNT 0.49 K/ L 1.18-3.74 L (BEAKER) (test code = 414) MONOCYTES ABSOLUTE COUNT (BEAKER) 0.84 K/ L 0.24-0.36 H (test code = 415) EOSINOPHILS ABSOLUTE COUNT 0.10 K/ L 0.04-0.36 (BEAKER) (test code = 416) BASOPHILS ABSOLUTE COUNT (BEAKER) 0.03 K/ L 0.01-0.08 (test code = 417) IMMATURE GRANULOCYTES-RELATIVE 1 % 0-1 PERCENT (BEAKER) (test code = 2801) RAD, CHEST, 1 VIEW, NON [id number] 17:13:00Post-intubationReason for exam:- >intubationShould this be performed at the bedside?->YesFINAL REPORT [...] Grubbs Verified Date/Time: 01/16/2019 17:13:52 Reading Location: [facility] [place] RAD, ABDOMEN/KUB, 1 VIEW [id number] 17:06:00Reason for exam:->ng tube placement FINAL REPORT EXAM: Frontal supine chest radiograph HISTORY PROVIDED: Nasogastric tube placement COMPARISON: None available IMPRESSION:The tip of a nasogastric tube projects in the expected location of the body of the stomach. The visualized bowel gas pattern is nonspecific but a ppears nonobstructive. While no definite free air is seen, this examination is insensitive for the detection of free air. No acute osseous abnormality. Degenerative changes of the spine are noted. Signed: Delvin Grubbs Verified Date/Time: 01/16/2019 17:06:42 Reading Location: [facility] [place]
[2020-01-30 19:59] LABS: Absolute Lymphocytes (CBC) 0.9 K/uL (0.7-4.9); Basophils % 0.3 % (0-1.3); Hematocrit 31.4 % (36.0-45.0); Lymphocytes % 10.7 % (15.3-44.8); RBC Red Blood Cell Count 3.14 M/uL (3.86-4.86)
[2020-01-30] MEDS ORDERED: KETOROLAC 30 MG/ML INJ ONE (19:59)
[2020-01-30] MEDS ORDERED: NA CHLORIDE 0.9% 500 ML ONE (19:59)
[2020-01-30 20:15] LABS: Albumin 2.7 g/dL (3.4-5.0); Bilirubin Direct 0.1 mg/dL (0-0.2); Bilirubin Total 0.3 mg/dL (0.2-1.0); Potassium 4.2 mmol/L (3.5-5.1); Protein, Total 6.6 g/dL (6.4-8.2)
--- NOTE | 2020-01-30 20:15 | RAD REPORT ---
EXAM DESCRIPTION: CT - Ct Stroke Brain Wo Cont - 01/30/2020 8:03 pm CLINICAL HISTORY: WEAKNESS COMPARISON: Head Brain Wo Cont dated 07/13/2019 TECHNIQUE: Axial 5 millimeter thick images of the head were obtained without IV contrast. All CT scans are performed using dose optimization technique as appropriate and may include automated exposure control or mA/KV adjustment according to patient size. FINDINGS: No intracranial hemorrhage, mass, or cerebral edema. No acute cortical based infarction. A trophy changes are present similar to the July 2019 study. Ventricles are in proportion to the vo lume loss. Moderate chronic ischemic changes are present more prominent in the right frontal lobe. Th is is also stable pattern. Arterial and physiologic calcifications are present. Craft matter-white mat ter differentiation is preserved. Visualized portions of the mastoid air cells, paranasal sinuses, and orbits are unremarkable. Findings telephoned to the referring clinician 8:11 p.m. IMPRESSION: No CT evidence of acute intracranial process. Atrophy and chronic ischemic changes match comparison. Chronic ischemic changes can mask nonhemorrhagic acute infarction. MR brain followup can be obtained if there is ongoing concern for acute ischemia.
--- NOTE | 2020-01-30 20:23 | RAD REPORT ---
EXAM DESCRIPTION: CT - Abdomen Pelvis Wo Contrast - 01/30/2020 8:04 pm CLINICAL HISTORY: ABD PAIN COMPARISON: Abdomen Pelvis Wo Contrast dated 11/07/2016; CT ABD PELVIS W CONTRAST dated 02/24/2008; C t Stroke Brain Wo Cont dated 01/30/2020 TECHNIQUE: Axial [address] imaging of the abdomen and pelvis was performed without IV contrast. No IV contrast was given because of allergy, abnormal renal function, patient refusal or physician re quest. No oral contrast. All CT scans are performed using dose optimization technique as appropriate and may include automated exposure control or mA/KV adjustment according to patient size. FINDINGS: No acute lung base finding. No pericardial thickening or effusion. Pleural effusions seen on the 2017 comparison have resolved. No liver abnormality seen. Spleen and pancreas without acute finding on noncontrast imaging. Well filled gallbladder shows hyperdensity. This can be from stones or sludge. No biliary tree dilata tion. No hydronephrosis or suspicious renal mass. No significant adrenal finding. Isodense renal masses an d pyelonephritis cannot be excluded in the absence of IV contrast. Urinary bladder is well filled. Tigist men is relatively hyperdense over what is typically encounter. Increased density can be seen with hem orrhage. Correlation is needed with UA findings for possible hematuria. No bladder mass is evident. U terus is deviated to the left. No uterine or ovarian process identifiable. Stomach is distended by a large quantity of food. No dilated small bowel. Moderately large stool volu me throughout the colon. No colon mass seen from cecum to the distal rectum. There are prominent soft tissues along the posterior wall of the rectum at the anus. Patient is incontinent of stool. No free air or pneumatosis. No lymphadenopathy or omental thickening. Bony degenerative changes are present. Postsurgical changes are present at the left acetabulum. IMPRESSION: No bowel obstruction, free air or surgically emergent finding. Soft tissues around the anus in posterior wall lower rectum are prominent. This is not substantially different from comparison. CT assessment in this region is limited. More proximally no acute GI process identifiable. There is relative hyperdensity of the urine within a filled urinary bladder. This can be an indicatio n of hemorrhagic material. Correlation is needed with UA findings. Full assessment is limited is the absence of IV contrast.
[2020-01-30 20:48] LABS: Urine Blood NEGATIVE (NEG); Urine Glucose NEGATIVE (NEG); Urine Protein 3+ (NEG); Urine pH 8.5 (5.0-7.0)
--- NOTE | 2020-01-30 20:57 | RAD REPORT ---
EXAM DESCRIPTION: RAD - Chest Single View - 01/30/2020 8:42 pm CLINICAL HISTORY: abdominal pain, shortness of breath COMPARISON: Portable January 2019 TECHNIQUE: AP portable chest image was obtained 01/30/2020 8:42 pm . FINDINGS: No peripheral mass or consolidation. No significant failure or volume overload. Dialysis c atheter in place on the right. Heart and vasculature are normal. No measurable pleural effusion and n o pneumothorax. No acute bony abnormality seen. No acute aortic findings suspected. IMPRESSION: No acute cardiopulmonary process. No suspicious change from comparison.
[2020-01-30] MEDS ORDERED: METRONIDAZOLE 500mg IVPB 500 MG/100 ML BAG IV ONE (21:26)
[2020-01-30] MEDS ORDERED: CEFTRIAXONE/SWI 1gm 1 GM/10 ML SYR ONE (21:26)
[2020-01-30 21:36] LABS: Urine Bacteria <20 /HPF (<20); Urine Culture Reflex Order NOT NEEDED; Urine Mucus 1+ /HPF (NONE SEEN); Urine RBC <5 /HPF (NONE SEEN)
[2020-01-30 23:24] VITALS: TEMP 98
[2020-01-30 23:26] VITALS: BP 119/61; O2SAT 99
--- NOTE | 2020-02-02 13:04 | EKG ---
Test Date: 2020-01-30 Test Time: 20:11:39 Electronics Engineering Technician: MATHEW MEASUREMENT RESULTS: Intervals: Rate: 67 MI: 122 QRSD: 76 QT: 436 QTc: 460 [place]: P: 79 MI: 122 QRS: -19 T: 9 INTERPRETIVE STATEMENTS: Normal sinus rhythm Moderate voltage criteria for LVH, may be normal variant Borderline ECG Electronically Signed On 02-02-20 13:03:52 CDT by Jonathan Choudhury
--- NOTE | 2020-02-04 15:03 | EDPHYS ---
Physician Documentation [facility] Name: Rhoda Lu Age: 69 yrs Sex: Female : 1950 Arrival Date: 01/30/2020 Time: 19:00 Bed 8 Private MD: ED Physician Eamon Burden HPI: 01/29 20:32 This 69 yrs old Black Female presents to ER via Wheelchair with complaints of Abdominal ma2 Pain, Diarrhea. 20:33 Onset: The symptoms/episode began/occurred gradually, 1 week(s) ago. Associated signs ma2 and symptoms: Pertinent negatives: belching, dysuria, GI bleeding, nausea. Severity of symptoms: At their worst the symptoms were mild in the emergency department the symptoms are unchanged. The patient has not experienced similar symptoms in the past. Historical: - Allergies: 19:21 Codeine; ll1 19:21 Demerol; ll1 19:21 Morphine; ll1 19:21 TETRACYCLINES; ll1 - Home Meds: 19:38 amlodipine 10 mg tab 1 tab once daily [Active]; ascorbic acid (vitamin C) 500 mg tab mg2 [Active]; aspirin 81 mg Oral chew [Active]; atorvastatin 40 mg Oral tab [Active]; carvedilol 25 mg Oral tab 1 tab 2 times per day [Active]; clonidine HCl 0.2 mg Oral tab [Active]; Coreg 25 mg Oral tab [Active]; cyclobenzaprine 5 mg Oral tab [Active]; famotidine 20 mg Oral tab [Active]; furosemide 20 mg Oral tab 1 tab once daily [Active]; Humulin 70/30 Sub-Q twice a day [Active]; hydralazine 50 mg Oral tab 1 tab 2 times per day [Active]; hydralazine 50 mg Oral tab [Active]; isosorbide mononitrate 60 mg Oral Tb24 [Active]; lactulose 10 gram/15 mL (15 mL) Oral soln [Active]; lidocaine patch 4% [Active]; lisinopril 40 mg Oral tab [Active]; nifedipine 90 mg Oral TbER [Active]; tramadol 50 mg Oral tab [Active]; tramadol-acetaminophen 37.5-325 mg Oral tab [Active]; Zinc Sulfate Oral [Active]; Zofran (as hydrochloride) 4 mg Oral tab [Active]; - PMHx: 19:21 Hypertension; Diabetes - IDDM; DVT; chronic anemia; Renal Disease; CHF; ll1 - PSHx: 19:21 dialysis ports; ll1 - Immunization history:: Adult Immunizations up to date, Flu vaccine is up to date. - Social history:: Smoking status: Patient denies any tobacco usage or history of. Patient/guardian denies using alcohol, street drugs, tobacco products. - Family history:: not pertinent. - Hospitalizations: : No recent hospitalization is reported. ROS: 20:33 Constitutional: Negative for fever, chills, and weight loss. ma2 20:33 All other systems are negative. Exam: 20:33 Constitutional: This is a well developed, well nourished patient who is awake, alert, ma2 and in no acute distress. Head/Face: Normocephalic, atraumatic. Eyes: Pupils equal round and reactive to light, extra-ocular motions intact. Lids and lashes normal. Conjunctiva and sclera are non-icteric and not injected. Cornea within normal limits. Periorbital areas with no swelling, redness, or edema. ENT: Nares patent. No nasal discharge, no septal abnormalities noted. Tympanic membranes are normal and external auditory canals are clear. Oropharynx with no redness, swelling, or masses, exudates, or evidence of obstruction, uvula midline. Mucous membranes moist. Neck: Trachea midline, no thyromegaly or masses palpated, and no cervical lymphadenopathy. Supple, full range of motion without nuchal rigidity, or vertebral point tenderness. No Meningismus. Chest/axilla: Normal chest wall appearance and motion. Nontender with no deformity. No lesions are appreciated. Cardiovascular: Regular rate and rhythm with a normal S1 and S2. No gallops, murmurs, or rubs. Normal PMI, no JVD. No pulse deficits. Respiratory: Lungs have equal breath sounds bilaterally, clear to auscultation and percussion. No rales, rhonchi or wheezes noted. No increased work of breathing, no retractions or nasal flaring. Abdomen/GI: Soft, non-tender, with normal bowel sounds. No distension or tympany. No guarding or rebound. No evidence of tenderness throughout. Skin: Warm, dry with normal turgor. Normal color with no rashes, no lesions, and no evidence of cellulitis. MS/ Extremity: Pulses equal, no cyanosis. Neurovascular intact. Full, normal range of motion. Neuro: Awake and alert, GCS 15, oriented to person, place, time, and situation. Cranial nerves II-XII grossly intact. Motor strength 5/5 in all extremities. Sensory grossly intact. Cerebellar exam normal. Normal gait. Vital Signs: 19:18 BP 105 / 66; Pulse 65; Resp 17; Temp 98.0; Pulse Ox 99% ; Pain 10/10; ll1 19:38 BP 146 / 71; Pulse 66; Resp 18; Pulse Ox 98% on R/A; mg2 21:29 BP 119 / 61; Pulse 65; Resp 18; Pulse Ox 99% on R/A; mg2 NIH Stroke Scale Scores: 20:17 NIHSS Score: 4 mg2 MDM: 19:23 Patient medically screened. [facility] 20:33 Differential diagnosis: gastritis, pancreatitis, viral gastroenteritis, ma2 gastroenteritis, uti. 22:33 Data reviewed: vital signs, nurses notes. Counseling: I had a detailed discussion with ma2 the patient and/or guardian regarding: the historical points, exam findings, and any diagnostic results supporting the discharge/admit diagnosis, the presence of at least one elevated blood pressure reading (>120/80) during this emergency department visit, the need for outpatient follow up. Response to treatment: the patient's symptoms have markedly improved after treatment. 01/29 19:38 Order name: Basic Metabolic Panel; Complete Time: 20:39 mg2 01/29 19:38 Order name: CBC with Diff; Complete Time: 20:39 [facility] 01/29 19:38 Order name: Hepatic Function; Complete Time: 20:39 mg2 01/29 19:38 Order name: Lipase; Complete Time: 20:39 mg2 01/29 20:26 Order name: Glucose, Ancillary Testing; Complete Time: 20:39 EDMS 01/29 20:39 Order name: Urine Dipstick--Ancillary (enter results); Complete Time: 21:08 ar5 01/29 19:46 Order name: CT Abd/Pelvis - Without Contrast; Complete Time: 20:39 ma2 01/29 19:58 Order name: CT Stroke Brain w/o Contrast; Complete Time: 20:39 lp1 01/29 20:26 Order name: XRAY Chest (1 view); Complete Time: 21:08 ar5 01/29 21:10 Order name: Urine Microscopic Only; Complete Time: 22:23 lp1 01/29 19:38 Order name: IV Saline Lock; Complete Time: 19:57 mg2 01/29 19:38 Order name: Labs collected and sent; Complete Time: 19:57 mg2 01/29 19:46 Order name: Urine Dipstick-Ancillary (obtain specimen); Complete Time: 21:13 ma2 Administered Medications: 20:12 Drug: NS 0.9% 500 ml Route: IV; Rate: 1 bolus; Site: right forearm; mg2 21:21 Follow up: Response: No adverse reaction; IV Status: Completed infusion; IV Intake: mg2 1000ml 20:13 Drug: TORadol 30 mg Route: IVP; Site: right forearm; mg2 20:30 Follow up: Response: No adverse reaction mg2 21:26 Drug: Flagyl 500 mg Volume: 100 ml; Route: IVPB; Rate: 200 ml/hr; Infused Over: 30 mg2 mins; Site: right forearm; 22:00 Follow up: Response: No adverse reaction; IV Status: Completed infusion mg2 21:27 Drug: Rocephin 1 grams Route: IV; Rate: calculated rate; Site: right forearm; mg2 22:00 Follow up: Response: No adverse reaction; IV Status: Completed infusion mg2 Disposition: 01/30/20 22:34 Discharged to Home. 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 - Condition is Stable. - Discharge Instructions: Proctitis. - Prescriptions for Flagyl 500 mg Oral Tablet - take 1 tablet by ORAL route every 12 hours for 7 days; 14 tablet. Cipro 500 mg Oral Tablet - take 1 tablet by ORAL route every 12 hours for 7 days; 14 tablet. Diclofenac Sodium 75 mg Oral Tablet Sustained Release - take 1 tablet by ORAL route 2 times per day; 30 tablet. - Medication Reconciliation Form, Thank You Letter, Antibiotic Education, Prescription Opioid Use form. - Follow up: Private Physician; When: Tomorrow; Reason: If symptoms return. Follow up: Parag Kraus MD; When: Tomorrow; Reason: Continuance of care. NIH Stroke Scale - NIH Stroke Score Date: 01/30/2020 Time: 20:17 Total Score = 4 1a. Level of Consciousness (LOC) - 0(Alert) 1b. Level of Consciousness (LOC) (Year \T\ Age) - 0(Both) 1c. LOC Commands (Open \T\ Closes Eyes/Roller Inspector) - 0(Both) 2. Best Gaze (Lateral Gaze Paresis) - 0(Normal) 3. Visual Field Loss - 0(No visual loss) 4. Facial Palsy - 0(Normal) 5a. Left Arm: Motor (10-second hold) - 0(No drift) 5b. Right Arm: Motor (10-second hold) - 0(No drift) 6a. Left Leg: Motor (5-second hold - always test supine) - 4(No movement) 6b. Right Leg: Motor (5-second hold - always test supine) - 0(No drift) 7. Limb Ataxia (finger/nose \T\ heel/newby - test with eyes open) - 0(Absent) 8. Sensory Loss (pinprick arms/legs/face) - 0(Normal) 9. Best Language: Aphasia (description/naming/reading) - 0(No aphasia) 10. Dysarthria (speech clarity - read or repeat words) - 0(Normal) 11. Extinction and Inattention (visual/tactile/auditory/spatial/personal) - 0(No abnormality) Initials: mg2 Signatures: Dispatcher [employer] EDHany Rivas RN RN jb4 Eamon Burden MD MD ma2 Jonathan Johns RN RN mg2 Jayleen Pantoja RN RN ll1 Corrections: (The following items were deleted from the chart) 23:18 22:34 01/30/2020 22:34 Discharged to Home. Impression: Ulcerative (chronic) jb4 proctitis without complications. Condition is Stable. Prescriptions for Flagyl 500 mg Oral Tablet - take 1 tablet by ORAL route every 12 hours for 7 days; 14 tablet, Cipro 500 mg Oral Tablet - take 1 tablet by ORAL route every 12 hours for 7 days; 14 tablet, Diclofenac Sodium 75 mg Oral Tablet Sustained Release - take 1 tablet by ORAL route 2 times per day; 30 tablet. and Forms are Medication Reconciliation Form, Thank You Letter, Antibiotic Education, Prescription Opioid Use. Follow up: Private Physician; When: Tomorrow; Reason: If symptoms return. Follow up: Parag Kraus; When: Tomorrow; Reason: Continuance of care. ma2
--- NOTE | 2020-02-04 15:03 | ER ---
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 Still ll1 is very weak, multiple stools, severe abd pain. Coronavirus screen: Proceed with normal triage. Patient denies a cough. Patient denies shortness of breath or difficulty breathing. Patient denies measured and/or subjective temperature greater than 100.4F prior to today's visit. Patient denies travel on a cruise ship or to a country the [facility] currently lists as an affected area. Patient denies contact with known and/or suspected case of COVID-19. Ebola Screen: Patient denies travel to an Ebola-affected area in the 21 days before illness onset. Initial Sepsis Screen: Does the patient meet any 2 criteria? No. Patient's initial sepsis screen is negative. Does the patient have a suspected source of infection? No. Patient's initial sepsis screen is negative. Risk Assessment: Do you want to hurt yourself or someone else? Patient reports no desire to harm self or others. Onset of symptoms was January 30, 2020. 19:18 Method Of Arrival: Wheelchair ll1 19:18 Acuity: JANAE 3 ll1 Historical: - Allergies: 19:21 Codeine; ll1 19:21 Demerol; ll1 19:21 Morphine; ll1 19:21 TETRACYCLINES; ll1 - Home Meds: 19:38 amlodipine 10 mg tab 1 tab once daily [Active]; ascorbic acid (vitamin C) 500 mg tab mg2 [Active]; aspirin 81 mg Oral chew [Active]; atorvastatin 40 mg Oral tab [Active]; carvedilol 25 mg Oral tab 1 tab 2 times per day [Active]; clonidine HCl 0.2 mg Oral tab [Active]; Coreg 25 mg Oral tab [Active]; cyclobenzaprine 5 mg Oral tab [Active]; famotidine 20 mg Oral tab [Active]; furosemide 20 mg Oral tab 1 tab once daily [Active]; Humulin 70/30 Sub-Q twice a day [Active]; hydralazine 50 mg Oral tab 1 tab 2 times per day [Active]; hydralazine 50 mg Oral tab [Active]; isosorbide mononitrate 60 mg Oral Tb24 [Active]; lactulose 10 gram/15 mL (15 mL) Oral soln [Active]; lidocaine patch 4% [Active]; lisinopril 40 mg Oral tab [Active]; nifedipine 90 mg Oral TbER [Active]; tramadol 50 mg Oral tab [Active]; tramadol-acetaminophen 37.5-325 mg Oral tab [Active]; Zinc Sulfate Oral [Active]; Zofran (as hydrochloride) 4 mg Oral tab [Active]; - PMHx: 19:21 Hypertension; Diabetes - IDDM; DVT; chronic anemia; Renal Disease; CHF; ll1 - PSHx: 19:21 dialysis ports; ll1 - Immunization history:: Adult Immunizations up to date, Flu vaccine is up to date. - Social history:: Smoking status: Patient denies any tobacco usage or history of. Patient/guardian denies using alcohol, street drugs, tobacco products. - Family history:: not pertinent. - Hospitalizations: : No recent hospitalization is reported. Screenin:33 Abuse screen: Denies threats or abuse. Denies injuries from another. Nutritional mg2 screening: No deficits noted. Tuberculosis screening: No symptoms or risk factors identified. Fall Risk Ambulatory Aid- None/Bed Rest/Nurse Assist (0 pts). Gait- Weak (10 pts.). 20:15 Patient has been NPO before screening. The patient is alert, able to follow commands. mg2 The patient does not exhibit slurred or garbled speech The patient is not exhibiting difficulty speaking. The patient does not exhibit difficulty understanding words. The patient is able to swallow own secretions with no drooling or need for suction. Patient tolerated one teaspoon of water. No drooling, immediate coughing, gurgling, or clearing of the throat was noted. The patient tolerated 90mL of water. No drooling, immediate coughing, gurgling, or clearing of the throat was noted. Assessment: 19:32 General: Appears in no apparent distress. comfortable, Behavior is calm, cooperative. mg2 Pain: Complains of pain in abdomen. Neuro: Level of Consciousness is awake, alert, obeys commands, Oriented to person, place, time, situation. Cardiovascular: Capillary refill < 3 seconds Patient's skin is warm and dry. Respiratory: Airway is patent Respiratory effort is even, unlabored, Respiratory pattern is regular, symmetrical. GI: Reports lower abdominal pain, upper abdominal pain. : No signs and/or symptoms were reported regarding the genitourinary system. EENT: No signs and/or symptoms were reported regarding the EENT system. Derm: Skin is normal. Musculoskeletal: Circulation, motion, and sensation intact. Capillary refill < 3 seconds. 19:38 GI: Abd is soft Abd is non tender. mg2 19:47 Reassessment: Gab (son) [phone]. 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 jb4 Pt states "I feel like I am having a stroke. My left side feels weak." Family member reports this as being new since arriving to the ER room 8. Pt reports feeling of left sided weakness began after arriving to ER room. Code stroke called. 19:58 Reassessment: sent to CT via stretcher accompanied by me. mg2 21:58 Reassessment: Patient appears in no apparent distress at this time. Patient and/or mg2 family updated on plan of care and expected duration. Pain level reassessed. Patient is alert, oriented x 3, equal unlabored respirations, skin warm/dry/pink. Vital Signs: 19:18 BP 105 / 66; Pulse 65; Resp 17; Temp 98.0; Pulse Ox 99% ; Pain 10/10; ll1 19:38 BP 146 / 71; Pulse 66; Resp 18; Pulse Ox 98% on R/A; mg2 21:29 BP 119 / 61; Pulse 65; Resp 18; Pulse Ox 99% on R/A; mg2 NIH Stroke Scale Scores: 20:17 NIHSS Score: 4 mg2 ED Course: 19:00 Patient arrived in ED. fj1 19:21 Triage completed. ll1 19:22 Arm band placed on Patient placed in an exam room, on a stretcher. ll1 19:23 Eamon Burden MD is Attending Physician. ma2 19:25 Jonathan Johns RN is Primary Nurse. mg2 19:34 Patient has correct armband on for positive identification. ccie on. Pulse mg2 ox on. NIBP on. Door closed. Warm blanket given. 19:50 Missed attempt(s): 20 gauge Bleeding controlled, band aid applied, catheter tip intact. oe 19:53 Inserted saline lock: 22 gauge in right forearm, using aseptic technique. Blood oe collected. 20:05 CT Abd/Pelvis - Without Contrast In Process Unspecified. EDMS 20:05 CT Stroke Brain w/o Contrast In Process Unspecified. EDMS 20:10 EKG done, by ED staff. mg2 20:43 XRAY Chest (1 view) In Process Unspecified. EDMS 22:02 No provider procedures requiring assistance completed. mg2 22:34 Parag Kraus MD is Referral Physician. ma2 23:15 IV discontinued, intact, bleeding controlled, No redness/swelling at site. Pressure mg2 dressing applied. Administered Medications: 20:12 Drug: NS 0.9% 500 ml Route: IV; Rate: 1 bolus; Site: right forearm; mg2 21:21 Follow up: Response: No adverse reaction; IV Status: Completed infusion; IV Intake: mg2 1000ml 20:13 Drug: TORadol 30 mg Route: IVP; Site: right forearm; mg2 20:30 Follow up: Response: No adverse reaction mg2 21:26 Drug: Flagyl 500 mg Volume: 100 ml; Route: IVPB; Rate: 200 ml/hr; Infused Over: 30 mg2 mins; Site: right forearm; 22:00 Follow up: Response: No adverse reaction; IV Status: Completed infusion mg2 21:27 Drug: Rocephin 1 grams Route: IV; Rate: calculated rate; Site: right forearm; mg2 22:00 Follow up: Response: No adverse reaction; IV Status: Completed infusion mg2 Outcome: 22:34 Discharge ordered by . ma2 23:16 Discharged to home via wheelchair. mg2 23:16 Condition: stable 23:16 Discharge instructions given to patient, Instructed on discharge instructions, follow mg2 up and referral plans. medication usage, Demonstrated understanding of instructions, follow-up care, medications, Prescriptions given X 3. 23:18 Patient left the ED. jb4 NIH Stroke Scale - NIH Stroke Score Date: 01/30/2020 Time: 20:17 Total Score = 4 1a. Level of Consciousness (LOC) - 0(Alert) 1b. Level of Consciousness (LOC) (Year \\T\\ Age) - 0(Both) 1c. LOC Commands (Open \\T\\ Closes Eyes/Dentofacial Orthopedics Dentist) - 0(Both) 2. Best Gaze (Lateral Gaze Paresis) - 0(Normal) 3. Visual Field Loss - 0(No visual loss) 4. Facial Palsy - 0(Normal) 5a. Left Arm: Motor (10-second hold) - 0(No drift) 5b. Right Arm: Motor (10-second hold) - 0(No drift) 6a. Left Leg: Motor (5-second hold - always test supine) - 4(No movement) 6b. Right Leg: Motor (5-second hold - always test supine) - 0(No drift) 7. Limb Ataxia (finger/nose \\T\\ heel/newby - test with eyes open) - 0(Absent) 8. Sensory Loss (pinprick arms/legs/face) - 0(Normal) 9. Best Language: Aphasia (description/naming/reading) - 0(No aphasia) 10. Dysarthria (speech clarity - read or repeat words) - 0(Normal) 11. Extinction and Inattention (visual/tactile/auditory/spatial/personal) - 0(No abnormality) Initials: mg2 Signatures: Dispatcher [employer] EDMS Hany Montelongo, JONI RN jb4 Darek Miller Mohammad, MD MD ma2 Jonathan Johns RN RN mg2 Reid Leach 1 Jayleen Pantoja RN RN ll1 Corrections: (The following items were deleted from the chart) 22:01 21:00 Patient has been NPO before screening. The patient is alert, able to mg2 follow commands. The patient does not exhibit slurred or garbled speech The patient is not exhibiting difficulty speaking. The patient does not exhibit difficulty understanding words. The patient is able to swallow own secretions with no drooling or need for suction. Patient tolerated one teaspoon of water. No drooling, immediate coughing, gurgling, or clearing of the throat was noted. The patient tolerated 90mL of water. No drooling, immediate coughing, gurgling, or clearing of the throat was noted. mg2
== END 2020-01-30 23:18 | disposition home or self-care (01) ==
LOC: ER 18:55
DX: K51.20 Ulcerative (chronic) proctitis without complications (principal); E11.22 Type 2 diabetes mellitus with diabetic chronic kidney disease; N18.6 End stage renal disease; I12.0 Hypertensive chronic kidney disease with stage 5 chronic kidney disease or end stage renal disease; Z99.2 Dependence on renal dialysis; Z79.82 Long term (current) use of aspirin; Z79.4 Long term (current) use of insulin; Z88.1 Allergy status to other antibiotic agents; Z88.5 Allergy status to narcotic agent
CPT/HCPCS: 96365; 96361; 93005; 85025; 80048; 36415; 82947; 80076; 83690; 74176; 70450; 71045; 96375; 99284; J0696; J7040; 81003; 81015

== ENCOUNTER 2020-02-11 11:23 | Emergency (ER) | payer OTHER ==
[2020-02-11] MEDS ORDERED: HYDROCODONE/APAP 5/325 MG TAB ONE (12:16)
--- NOTE | 2020-02-11 12:49 | RAD REPORT ---
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 COMPARISON: No comparisons FINDINGS: Left upper extremity venous system was interrogated with Doppler technique. Normal flow, c ompressibility and augmentation was noted. There is no DVT present. IMPRESSION: No evidence of left upper extremity deep venous thrombosis.
--- NOTE | 2020-02-11 13:30 | EDPHYS ---
Physician Documentation [facility] Name: Rhoda Lu Age: 69 yrs Sex: Female : 1950 Arrival Date: 02/11/2020 Time: 11:26 Bed 18 Private MD: ED Physician Marek Reagan HPI: 02/11 08:14 This 69 yrs old Black Female presents to ER via EMS with complaints of left arm pain. kdr 08:14 The patient or guardian complains of injury, pain, that is chronic. The complaints kdr affect the left bicep, left antecubital area, dorsal aspect of left forearm and palmar aspect of left forearm. 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 states she had nerve damage from the procedure. Onset: The symptoms/episode began/occurred at an unknown time. Likely over a month. Treatment prior to arrival includes: no previous treatment. Modifying factors: The symptoms are alleviated by nothing. the symptoms are aggravated by movement. Associated signs and symptoms: The patient has no apparent associated signs or symptoms. Severity of symptoms: At their worst the symptoms were mild, moderate, just prior to arrival, in the emergency department the symptoms are unchanged. The patient has not experienced similar symptoms in the past. The patient has been recently seen by a physician: For fistula placement in November at [facility]. Historical: - Allergies: 02/10 11:50 Codeine; ca1 11:50 Demerol; ca1 11:50 Morphine; ca1 11:50 TETRACYCLINES; ca1 - Home Meds: 12:18 amlodipine 10 mg tab 1 tab once daily [Active]; ascorbic acid (vitamin C) 500 mg tab ca1 [Active]; aspirin 81 mg Oral chew [Active]; atorvastatin 40 mg Oral tab [Active]; carvedilol 25 mg Oral tab 1 tab 2 times per day [Active]; clonidine HCl 0.2 mg Oral tab [Active]; Coreg 25 mg Oral tab [Active]; cyclobenzaprine 5 mg Oral tab [Active]; famotidine 20 mg Oral tab [Active]; furosemide 20 mg Oral tab 1 tab once daily [Active]; Humulin 70/30 Sub-Q twice a day [Active]; hydralazine 50 mg Oral tab 1 tab 2 times per day [Active]; hydralazine 50 mg Oral tab [Active]; isosorbide mononitrate 60 mg Oral Tb24 [Active]; lactulose 10 gram/15 mL (15 mL) Oral soln [Active]; lidocaine patch 4% [Active]; lisinopril 40 mg Oral tab [Active]; nifedipine 90 mg Oral TbER [Active]; tramadol 50 mg Oral tab [Active]; tramadol-acetaminophen 37.5-325 mg Oral tab [Active]; Zinc Sulfate Oral [Active]; Zofran (as hydrochloride) 4 mg Oral tab [Active]; - PMHx: 11:50 CHF; chronic anemia; Diabetes - IDDM; DVT; Hypertension; Renal Disease; Dialysis T,,S;ca1 - PSHx: 11:50 dialysis ports; ca1 - Immunization history:: Adult Immunizations up to date. - Social history:: Smoking status: Patient denies any tobacco usage or history of. ROS: 02/11 08:14 Constitutional: Negative for fever, chills, and weight loss, Eyes: Negative for injury, kdr pain, redness, and discharge, ENT: Negative for injury, pain, and discharge, Neck: Negative for injury, pain, and swelling, Cardiovascular: Negative for chest pain, palpitations, and edema, Respiratory: Negative for shortness of breath, cough, wheezing, and pleuritic chest pain, Abdomen/GI: Negative for abdominal pain, nausea, vomiting, diarrhea, and constipation, Back: Negative for injury and pain, : Negative for injury, bleeding, discharge, and swelling, Skin: Negative for injury, rash, and discoloration, Neuro: Negative for headache, weakness, numbness, tingling, and seizure activity. Psych: Negative for depression, anxiety, suicide ideation, homicidal ideation, and hallucinations, Allergy/Immunology: Negative for hives, rash, and allergies, Endocrine: Negative for neck swelling, polydipsia, polyuria, polyphagia, and marked weight changes, Hematologic/Lymphatic: Negative for swollen nodes, abnormal bleeding, and unusual bruising. MS/extremity: Positive for decreased range of motion, pain, of the left bicep, left antecubital area and dorsal aspect of left forearm. Exam: 08:14 Constitutional: This is a well developed, well nourished patient who is awake, alert, kdr and in no acute distress. Head/Face: Normocephalic, atraumatic. Eyes: Pupils equal round and reactive to light, extra-ocular motions intact. Lids and lashes normal. Conjunctiva and sclera are non-icteric and not injected. Cornea within normal limits. Periorbital areas with no swelling, redness, or edema. 08:14 Musculoskeletal/extremity: Several incisions on or around the left antecubital fossa of the left arm that are healing well and without s/s of infection. No fistula or thrill is palpated in the area. Vital Signs: 02/10 11:39 BP 147 / 58; Pulse 60; Resp 18 S; Temp 98(O); Pulse Ox 99% on R/A; Weight 43.54 kg (R); ca1 Height 5 ft. 7 in. (170.18 cm) (R); Pain 10/10; 12:30 BP 119 / 53; Pulse 55; Resp 17 S; Pulse Ox 99% on R/A; ca1 13:31 BP 123 / 53; Pulse 57; Resp 15 S; Pulse Ox 99% on R/A; ca1 11:39 Body Mass Index 15.04 (43.54 kg, 170.18 cm) ca1 MDM: 13:30 Patient medically screened. kdr 02/11 08:14 Data reviewed: vital signs, nurses notes, lab test result(s), radiologic studies. kdr Counseling: I had a detailed discussion with the patient and/or guardian regarding: the historical points, exam findings, and any diagnostic results supporting the discharge/admit diagnosis, lab results, radiology results, the need for outpatient follow up. 02/10 12:00 Order name: UPPER EXTREMITY VENOUS UNILATE; Complete Time: 13:04 EDMS Administered Medications: 02/10 12:12 Drug: [place] 5 mg-325 mg 1 tabs {Note: rass - 1.} Route: PO; ca1 13:02 Follow up: Response: No adverse reaction; Pain is decreased; RASS: Drowsy (-1) ca1 Disposition: 02/11/20 13:30 Discharged to Home. 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 - Condition is Stable. - Discharge Instructions: Musculoskeletal Pain. - Prescriptions for Tramadol 50 mg Oral Tablet - take 1 tablet by ORAL route every 8 hours as needed; 12 tablet. - Medication Reconciliation Form, Thank You Letter, Prescription Opioid Use form. - Follow up: Private Physician; When: 2 - 3 days; Reason: If symptoms return, Further diagnostic work-up, Recheck today's complaints, Continuance of care, Re-evaluation by your physician. - Problem is an ongoing problem. - Symptoms have improved. - Notes: You will need to follow-up with your doctors at [facility] to have then address the reasons for the pain in your hand the flexion of your fingers. Signatures: Dispatcher [employer] [facility] Marek Reagan MD MD kdr Jorge, Rani RN RN ca1 Corrections: (The following items were deleted from the chart) 12:00 11:58 Extremity Venous [id number] ordered. [facility] 13:45 13:30 02/11/2020 13:30 Discharged to Home. 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 Condition is Stable. Forms are Medication Reconciliation Form, Thank You Letter, Antibiotic Education, Prescription Opioid Use. Follow up: Private Physician; When: 2 - 3 days; Reason: If symptoms return, Further diagnostic work-up, Recheck today's complaints, Continuance of care, Re-evaluation by your physician. Problem is an ongoing problem. Symptoms have improved. kdr
--- NOTE | 2020-02-11 13:30 | ER ---
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 says she had nerve damage after the surgery. The pain has gotten worse that she is shaking. BGP 106. BP 147/70, HR. 59-60. Dialysis schedule ,,. Last dialysis was Tuesday. Coronavirus screen: Proceed with normal triage. Patient denies a cough. Patient denies shortness of breath or difficulty breathing. Patient denies measured and/or subjective temperature greater than 100.4F prior to today's visit. Patient denies travel on a cruise ship or to a country the [facility] currently lists as an affected area. Patient denies contact with known and/or suspected case of COVID-19. Ebola Screen: Patient negative for fever greater than or equal to 101.5 degrees Fahrenheit, and additional compatible Ebola Virus Disease symptoms Patient denies exposure to infectious person. Patient denies travel to an Ebola-affected area in the 21 days before illness onset. No symptoms or risks identified at this time. Initial Sepsis Screen: Does the patient meet any 2 criteria? No. Patient's initial sepsis screen is negative. Does the patient have a suspected source of infection? No. Patient's initial sepsis screen is negative. Risk Assessment: Do you want to hurt yourself or someone else? Patient reports no desire to harm self or others. Onset of symptoms was February 11, 2020. Care prior to arrival: Glucose check: 106. 11:39 Method Of Arrival: EMS: [facility] ca1 11:39 Acuity: JANAE 3 ca1 Historical: - Allergies: 11:50 Codeine; ca1 11:50 Demerol; ca1 11:50 Morphine; ca1 11:50 TETRACYCLINES; ca1 - Home Meds: 12:18 amlodipine 10 mg tab 1 tab once daily [Active]; ascorbic acid (vitamin C) 500 mg tab ca1 [Active]; aspirin 81 mg Oral chew [Active]; atorvastatin 40 mg Oral tab [Active]; carvedilol 25 mg Oral tab 1 tab 2 times per day [Active]; clonidine HCl 0.2 mg Oral tab [Active]; Coreg 25 mg Oral tab [Active]; cyclobenzaprine 5 mg Oral tab [Active]; famotidine 20 mg Oral tab [Active]; furosemide 20 mg Oral tab 1 tab once daily [Active]; Humulin 70/30 Sub-Q twice a day [Active]; hydralazine 50 mg Oral tab 1 tab 2 times per day [Active]; hydralazine 50 mg Oral tab [Active]; isosorbide mononitrate 60 mg Oral Tb24 [Active]; lactulose 10 gram/15 mL (15 mL) Oral soln [Active]; lidocaine patch 4% [Active]; lisinopril 40 mg Oral tab [Active]; nifedipine 90 mg Oral TbER [Active]; tramadol 50 mg Oral tab [Active]; tramadol-acetaminophen 37.5-325 mg Oral tab [Active]; Zinc Sulfate Oral [Active]; Zofran (as hydrochloride) 4 mg Oral tab [Active]; - PMHx: 11:50 CHF; chronic anemia; Diabetes - IDDM; DVT; Hypertension; Renal Disease; Dialysis T,TH,S;ca1 - PSHx: 11:50 dialysis ports; ca1 - Immunization history:: Adult Immunizations up to date. - Social history:: Smoking status: Patient denies any tobacco usage or history of. Screenin:45 Abuse screen: Denies threats or abuse. Denies injuries from another. Nutritional ca1 screening: No deficits noted. Tuberculosis screening: No symptoms or risk factors identified. Fall Risk Secondary diagnosis (15 points) impaired mobility, IV access (20 points). Ambulatory Aid- Crutches/Cane/Walker (15 pts). Gait- Weak (10 pts.). Total Martin Fall Scale indicates High Risk Score (45 or more points). Fall prevention measures have been instituted. Side Rails Up X 2 Family Present and informed to notify staff if the need to leave the bedside As available patient and family educated on Fall Prevention Program and Strategies. Assessment: 11:45 General: Appears in no apparent distress. comfortable, slender, Behavior is calm, ca1 cooperative, appropriate for age, drowsy. 11:45 Pain: Complains of pain in left arm Pain currently is 10 out of 10 on a pain scale. Is ca1 chronic. Neuro: Level of Consciousness is awake, alert, obeys commands, Oriented to person, place, time, situation, Appropriate for age. Cardiovascular: Heart tones S1 S2 present Capillary refill < 3 seconds Patient's skin is warm and dry. Dialysis shunt: in the anterior aspect of right upper chest, with palpable thrill, with auscultated bruit, with no erythema, with no edema, no bleeding noted. Respiratory: Airway is patent Respiratory effort is even, unlabored, Respiratory pattern is regular, symmetrical, Breath sounds are clear bilaterally. GI: Abdomen is flat, non-distended, Bowel sounds present X 4 quads. Abd is soft and non tender X 4 quads. : No signs and/or symptoms were reported regarding the genitourinary system. EENT: No signs and/or symptoms were reported regarding the EENT system. Derm: Skin is intact, is fragile, with poor turgor Skin is pink, warm \T\ dry. Musculoskeletal: Circulation, motion, and sensation intact. Capillary refill < 3 seconds. 11:45 Cardiovascular: Dialysis fistula on L arm. Appears dry, intact. Pt reports, that it has ca1 not been used. . 11:51 Reassessment: 's number [phone]. ca1 12:13 Reassessment: US at bedside. ca1 12:53 Reassessment: Patient appears in no apparent distress at this time. Patient and/or ca1 family updated on plan of care and expected duration. Pain level reassessed. Patient is alert, oriented x 3, equal unlabored respirations, skin warm/dry/pink. 13:31 Reassessment: Patient appears in no apparent distress at this time. Patient is alert, ca1 oriented x 3, equal unlabored respirations, skin warm/dry/pink. Vital Signs: 11:39 BP 147 / 58; Pulse 60; Resp 18 S; Temp 98(O); Pulse Ox 99% on R/A; Weight 43.54 kg (R); ca1 Height 5 ft. 7 in. (170.18 cm) (R); Pain 10/10; 12:30 BP 119 / 53; Pulse 55; Resp 17 S; Pulse Ox 99% on R/A; ca1 13:31 BP 123 / 53; Pulse 57; Resp 15 S; Pulse Ox 99% on R/A; ca1 11:39 Body Mass Index 15.04 (43.54 kg, 170.18 cm) ca1 ED Course: 11:26 Patient arrived in ED. em1 11:33 Marek Reagan MD is Attending Physician. kdr 11:38 Rani Patel, JONI is Primary Nurse. ca1 11:43 Triage completed. ca1 11:45 Patient has correct armband on for positive identification. Bed in low position. Call ca1 light in reach. Side rails up X2. Pulse ox on. NIBP on. Warm blanket given. 11:50 Arm band placed on right wrist. ca1 12:31 UPPER EXTREMITY VENOUS UNILATE In Process Unspecified. EDMS 13:37 No provider procedures requiring assistance completed. Patient did not have IV access ca1 during this emergency room visit. Administered Medications: 12:12 Drug: [place] 5 mg-325 mg 1 tabs {Note: rass - 1.} Route: PO; ca1 13:02 Follow up: Response: No adverse reaction; Pain is decreased; RASS: Drowsy (-1) ca1 Outcome: 13:30 Discharge ordered by . kdr 13:44 Discharged to home via wheelchair. ca1 13:44 Condition: stable 13:44 Discharge instructions given to patient, family, Instructed on discharge instructions, follow up and referral plans. no drinking with medication, no driving heavy equipment, medication usage, Demonstrated understanding of instructions, follow-up care, medications, Prescriptions given X 1. 13:45 Patient left the ED. ca1 Signatures: Dispatcher [employer] EDMS Marek Reagan MD MD kdr Paco Acosta em1 Rani Patel RN RN ca1 Corrections: (The following items were deleted from the chart) 12:19 11:45 Musculoskeletal: Circulation, motion, and sensation intact. Capillary refill < 3 ca1 seconds, ca1
[2020-02-11 14:11] VITALS: TEMP 98; O2SAT 99
[2020-02-11 14:14] VITALS: BP 123/53
--- OUTSIDE RECORDS SUMMARY | 2020-02-11 15:04 | XMS REPORT | Clinical Summary ---
:1950 Author Organization [facility] Address [address] [place] [address] Care Team Providers Name Role Phone Reid [...] Not on file Results Not on fileafter 02/10/2019 Insurance Payer Benefit Plan / Subscriber ID Effective Dates Phone Addre ss Type Group [employer] xxxxxxxx [facility] Rhoda Lu Transplant Self 1950 [phone] (Home) [address] [place] [address] Advance Directives For more information, please contact: [phone] Type Date Recorded Patient [employer]person [employer] Explanati on Advance Directives, Living Will and Medical Power of Manager Land
--- OUTSIDE RECORDS SUMMARY | 2020-02-11 15:07 | XMS REPORT | Clinical Summary ---
:1950 Author Organization [facility] Address [address] [place] [address] Care Team Providers Name Role Phone Pcp [...] Diaz (Pe r Mr. 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 Per Mr.B noyola the [employer] is on t he way but sure [...] (end stage Scheduling Not In renal disease) ([facility]) (Primary Dx) 02/28/2019 Surgery Robert Lovell,WOUND T CARLOS Jefferson MD ANTERIOR 02/28/2019 Anesthesia Event José Elias MD 02/28/2019 Travel 02/27/2019 Hospital Encounter General Internal Hubert Kelly, Dehiscence of operative wound, initial encounter (Primary Dx); - Medicine Hypertension, uncontrolled; 03/02/2019 Asher Burrwos Renal dis ease; MD Sarkis Type 2 diabetes mellitus with other spec ified complication, unspecified whether care home insulin use ([facility]); Spencer Amador, Abdominal wall hematoma, initial encounter; ESRD on hemodia lysis ([facility]); Essential hyper tension; Wound dehiscenc e 02/27/2019 Travel 01/16/2019 Hospital Encounter Cardiology Nelda Dean MD Cardiac arrest ([facility]); - Catherine Alonzo Respirato ry failure requiring intubation ([facility]); 02/14/2019 MD Sharif ESRD (end stage renal disease) ([facility]); Ayo Perez MD Acute respiratory failure with hypoxia ( [facility]); Carrie Portillo Acute encep halopathy; MD Tara Essential hypertension; Tyrel Boland ESRD on hemodialysis ([facility]); Charleen Olguin MD Non-rheumatic mitral regurgitation; Basilia, Nonrheumatic ao rtic valve stenosis; MD Charles Closed displaced fracture of anterior co lumn of left acetabulum, initial encounter ([facility]) Martínez Gruber MD after 02/10/2019 Family History Medical History Relation Name Comments [...] 03/02/2019 5:00 PM CDT Inhaled Oxygen Concentration - - Weight 50.8 kg (112 lb) 06/25/2019 11:06 [...] (Season Ended) 2020 Implants Implanted Type Area Goat Driver Device Shelf Model / Identifier Expiration Serial / Date Lot Scr [address] 3.5x55mm Ss [id number] - [id number] IMPLANTS Left: NEYMAR :NEYMAR [id number] / Implanted: Qty: 1 on 01/22/2019 by Robetr Lovell MD [employer] / Scr [address] 3.5x50mm Ss [id number] - [id number] IMPLANTS Left: NEYMAR :NEYMAR [id number] / Implanted: Qty: 2 on 01/22/2019 by Robert Lovell MD [employer] / Scr [address] 3.5x26mm Ss [id number] - [id number] IMPLANTS Left: NEYMAR :NEYMAR [id number] / Implanted: Qty: 1 on 01/22/2019 by Robert Lovell MD [employer] / Scr [address] 3.5x38mm Ss [id number] - [id number] IMPLANTS Left: NEYMAR :NEYMAR [id number] / Implanted: Qty: 1 on 01/22/2019 by Robert Lovell MD [employer] / Scr [address] 3.5x60mm Ss [id number] - [id number] IMPLANTS Left: NEYMAR :NEYMAR [id number] / Implanted: Qty: 1 on 01/22/2019 by Robert Lovell MD [employer] / Scr [address] 3.5x95mm Ss [id number] - [id number] IMPLANTS Left: NEYMAR :NEYMAR [id number] / Implanted: Qty: 1 on 01/22/2019 by Robert Lovell MD [employer] / Scr [address] 3.5x30mm Ss [id number] - [id number] IMPLANTS Left: NEYMAR :NEYMAR [id number] / Implanted: Qty: 1 on 01/22/2019 by Robert Lovell MD [employer] / Left Qls Plate Left: NEYMAR [id number] / Implanted: Qty: 1 on 01/22/2019 by Robert Lovell MD F emur / 3.5 X 45 Screw Left: NEYMAR [id number] / Implanted: Qty: 1 on 01/22/2019 [...] AM, NEYMAR , PATIENT IS IN A USP) CLOSURE,WOUND TORSO ANTERIOR 02/28/2019 8:00 AM CDT Closed displaced fracture of anterior column of left acetabulum, initial encounter (HCC) Closed displaced fracture of posterior column of acetabulum, unspecified laterality, initial encounter (HCC) Case Notes 1 HR Special Needs (REQUESTING 8:00 AM, NEYMAR , PATIENT IS IN A USP) BASIC METABOLIC PANEL (7) Routine 02/28/2019 3:59 [...] n the results section . COMPREHENSIVE METABOLIC Routine 02/12/2019 4:34 AM CDT Results for this PANEL procedure are i n the results section [...] n the results section . COMPREHENSIVE METABOLIC Routine 02/11/2019 5:24 AM CDT Results for this PANEL procedure are i n the results section [...] n the results section . COMPREHENSIVE METABOLIC Routine 02/10/2019 4:04 AM CDT Results for this PANEL procedure are i n the results section . CBC W/PLT COUNT & AUTO Routine 02/10/2019 4:04 AM CDT Results for this DIFFERENTIAL procedure are i n the results section . after 02/10/2019 Results VASCULAR DIAGRAM -SCAN (04/19/2019 12:00 PM CDT) Narrative Performed At This result has an attachment that is no t available. RHYTHM STRIP - SCAN (03/05/2019 1:51 PM CDT)Only the most recent of6 results within the time period is included. Narrative Performed At This result has an attachment that is no t available. Hemoglobin and hematocrit (03/02/2019 10:09 AM CDT) Hemoglobin 7.6 (L) 11.2 - 15.7 GM/DL [facility] Hematocrit 24.9 (L) 34.1 - 44.9 % [facility] Specimen Blood Performing Organization Address City/State/Zipcode Phone Number [facility] [address] [place] [address] CENTER Basic metabolic panel (03/02/2019 4:26 AM CDT)Only the most recent of6 results within the time period is included. Sodium 139 136 - 145 meq/L [facility] Potassium 4.9 3.5 - 5.1 meq/L [facility] Chloride 106 98 - 107 meq/L [facility] CO2 29 22 - 29 meq/L [facility] BUN 22 (H) 7 - 21 mg/dL [facility] Creatinine 2.59 (H) 0.57 - 1.25 mg/dL [facility] Glucose 94 70 - 105 mg/dL [facility] Calcium 8.8 8.4 - 10.2 mg/dL [facility] EGFR 22Comment: ESTIMATED GFR IS mL/min/1.73 sq m [facility] NOT ACCURATE [facility] CLEARANCE IN PREDICTING GLOMERULAR FILTRATION RATE. ESTIMATED GFR IS NOT APPLICABLE FOR DIALYSIS PATIENTS. Specimen Blood Performing Organization Address City/State/Zipcode Phone Number [place] [phone] [place] [address] CENTER XR pelvis 1 or 2 views (03/01/2019 11:18 AM CDT) Specimen Narrative Performed At FINAL REPORT [facility] CLINICAL HISTORY: follow up for pelvis O [...] MD Report Verified Date/Time:03/01/2019 11:58:06 Reading Location: [facility] Procedure Note Interface, External [...] Verified Date/Time: 03/01/2019 1 1:58:06 Reading Location: [facility] Performing Organization Address City/State/Zipcode Phone Number [facility] CBC with platelet count + automated diff (03/01/2019 5:33 AM CDT)Only the most recent of7 resultswithin the time period is included. WBC 7.4 3.5 - 10.5 K/L [facility] RBC 2.74 (L) 3.93 - 5.22 M/L [facility] Hemoglobin 8.4 (L) 11.2 - 15.7 GM/DL [facility] Hematocrit 27.0 (L) 34.1 - 44.9 % [facility] MCV 98.5 (H) 79.4 - 94.[address] [facility] MCH 30.7 25.6 - 32.2 pg [facility] MCHC 31.1 (L) 32.2 - 35.5 GM/DL [facility] RDW 16.6 (H) 11.7 - 14.4 % [facility] Platelets 214 150 - 450 K/CU MM [facility] MPV 10.7 9.4 - 12.3 fL [facility] nRBC 0 0 - 0 /100 WBC [facility] % Neutros 75 % [facility] % Lymphs 11 % [facility] % Monos 9 % [facility] % Eos 5 % [facility] % Baso 1 % [facility] # Neutros 5.56 1.56 - 6.13 K/L [facility] # Lymphs 0.83 (L) 1.18 - 3.74 K/L [facility] # Monos 0.63 (H) 0.24 - 0.36 K/L [facility] # Eos 0.35 0.04 - 0.36 K/L [facility] # Baso 0.04 0.01 - 0.08 K/L [facility] Immature Granulocytes-Relative 0 0 - 1 % C HI [facility] Specimen Blood Performing Organization Address City/[facility]/Zipcode Phone Number [address] [address] [place] Hepatitis B surface antigen (03/01/2019 5:33 AM CDT) HBsAg Screen Nonreactive Nonreactive [facility] Specimen Blood Performing Organization Address City/[facility]/Zipcode Phone Number [address] [address] CENTER AFB culture + smear (02/28/2019 8:46 AM CDT) Result No acid-fast bacilli isolated in [facility] 42 days CENTER AFB Smear No acid fast bacilli seen [facility] Specimen Wound Performing Organization Address [facility] Phone Number [address] [address] [place] Anaerobic culture (02/28/2019 8:46 AM CDT) Result No anaerobes isolated [facility] Specimen Wound Performing Organization Address [facility] Phone Number [address] [address] [place] Surgically obtained culture + gram stain (02/28/2019 8:46 AM CDT) Result 1+ Escherichia coli (A) [facility] Result <1+ Enterobacter cloacae [facility] complex (A)Comment: [facility] Positive Result 4+ Enterococcus species (A) [facility] Gram Stain Result <1+ WBCs [facility] Gram Stain Result No organisms seen [facility] Specimen Wound Organism Antibiotic Method Susceptibility Escherichia [...] Vancomycin <=0.5: Susc eptible Performing Organization Address City/[facility] Phone Number [address] [address] CENTER Fungus culture + smear (02/28/2019 8:46 AM CDT) Result No fungus isolated in 28 days [facility] Fungus Smear No fungi seen [facility] Specimen Wound Performing Organization Address City/[facility]/Zipcode Phone Number [address] [address] C[place] SPIN/CONCENTRATION CHARGE (02/28/2019 8:46 AM CDT) Concentration charged Done [facility] Specimen Wound Performing Organization Address [facility] Phone Number [address] [phone] [place] CARDIAC CATH REPORT - SCAN (02/15/2019 11:30 AM CDT) Narrative Performed At This result has an attachment that is no t available. POC-Glucose meter (02/14/2019 12:07 PM CDT)Only the most recent of13 results within the time period is included. POC-Glucose Meter 91Comment: TESTED AT 70 - 110 mg/dL [facility] [address] [place] [id number] Specimen Blood Performing Organization Address [facility] Phone Number [address] [address] [place] Calcium, Ionized (02/14/2019 3:41 AM CDT)Only the most recent of2 resultswithin the time period is included. Calcium, Ion 1.03 (L) 1.12 - 1.27 mmol/L [facility] pH, Blood 7.51 [facility] Specimen Blood Performing Organization Address [facility] Phone Number [address] [address] [place] Phosphorus (02/14/2019 3:41 AM CDT)Only the most recent of5 resultswithin the time period is included. Phosphorus 3.0 2.3 - 4.7 mg/dL [facility] Specimen Blood Performing Organization Address City/[facility] Cent[facility] Phone Number [address] [address] [place] Magnesium (02/14/2019 3:41 AM CDT)Only the most recent of5 resultswithin the time period is included. Magnesium 1.7 1.6 - 2.6 mg/dL [facility] Specimen Blood Performing Organization Address City/State/Zipcode Phone Number [facility] [address] [place] [address] CENTER HEMODIALYSIS INPATIENT (02/12/2019 9:10 PM CDT) Narrative [...] given. Transferred back to her room in 10 [place] in stable condition. HD duration 2.5 hours [...] (02/12/2019 5:50 PM CDT)Only the most recent of2 resultswithin the time period is included. Narrative Performed At This result has an attachment that is no t available. Platelet Aggregation: Function Screen (02/12/2019 4:34 AM CDT) [facility] ADP 41 (L) 60 - 91 % [facility] Plt. Function Screen 40-49% indicates [facility] Interpretation moderate platelet [facility] dysfunction Pathologist: Jada Freire MD [facility] (electronic signature) [facility] Platelets 111 (L) 150 - 450 K/CU [facility] MM [facility] Specimen Blood Narrative Performed At Platelet Function Screen results may be [facility] falsely low with platelet counts <100,000/cu mm. Performing Organization Address City/[facility]/Zipcode Phone Number [facility] [address] [place] [address] [place] Serotonin release assay (02/12/2019 4:34 AM CDT) Scan Result BLOOD [facility] Low Dose 0.1 IU/mL 100 % BLOOD [facility] High Dose 100 IU/mL 3 % BLOOD CE NTER [facility] KRYSTIN Result Positive BLOOD [facility] Specimen Blood Narrative Performed At This result has an attachment that is no t available. Performing Organization Address [facility] Cent[facility] Phone Number [facility] [address] [address] Heparin antibody (02/12/2019 4:34 AM CDT) Heparin Ab Positive-See Serotonin Negative [facility] Release Assay for MEDICAL CENTER Confirmation (A) Heparin Antibody Optical 3.000 (H) <0.400 [facility] 4T Total Score 2 [facility] Specimen Blood Narrative Performed At Probability of HIT based on scoring [facility] system: 6-8 = High probability; 4-5 = intermediate probability; 0-3 = low probability Performing Organization Address City/[facility]/Zipcode Phone Number [facility] [address] [place] [address] CENTER aPTT (02/12/2019 4:34 AM CDT) PTT 42.2 (H) 22.5 - 36.0 seconds [facility] Specimen Blood Narrative Performed At Draw baseline aPTT prior to infusion [facility] Performing Organization Address City/State/Zipcode Phone Number [facility] [address] [place] [address] CENTER Comprehensive metabolic panel (02/12/2019 4:34 AM CDT)Only the most recent of3 resultswithin the time period is included. Protein, Total 5.7 (L) 6.0 - 8.3 gm/dL [facility] Albumin 2.4 (L) 3.5 - 5.0 g/dL [facility] Alkaline Phosphatase 115 40 - 150 U/L [facility] Total Bilirubin 0.6 0.2 - 1.2 mg/dL [facility] Sodium 136 136 - 145 meq/L [facility] Potassium 4.4 3.5 - 5.1 meq/L [facility] Chloride 105 98 - 107 meq/L [facility] CO2 25 22 - 29 meq/L [facility] BUN 40 (H) 7 - 21 mg/dL [facility] Creatinine 3.29 (H) 0.57 - 1.25 mg/dL [facility] Glucose 91 70 - 105 mg/dL [facility] Calcium 8.4 8.4 - 10.2 mg/dL [facility] AST 16 5 - 34 U/L [facility] ALT 10 6 - 55 U/L [facility] EGFR 17Comment: ESTIMATED GFR mL/min/1.73 sq m [facility] IS NOT ACCURATE [facility] CREATININE CLEARANCE IN PREDICTING GLOMERULAR FILTRATION RATE. ESTIMATED GFR IS NOT APPLICABLE FOR DIALYSIS PATIENTS. Specimen Blood Performing Organization Address City/State/Zipcode Phone Number [facility] [address] [place] [address] CENTER Prepare Leuko-Red RBC (02/11/2019 11:54 PM CDT)Only the most recent of2 results within the time period is included. CROSSMATCH COMPATIBLE SAFET[facility]ACE TX Unit ABO O Pos SAFETRACE TX UNIT NUMBER [id number] SAFET[facility]ACE TX Status TX_TIMEINCHART SAFETRACE TX Blood Bank Product RED BLOOD CELLS [facility]AFET[facility]ACE TX PRODUCT CODE [id number] [facility] TX Specimen Other Performing Organization Address City/State/Zipcode Phone Number SAFETRACE TX CT abdomen/pelvis with IV contrast (02/10/2019 3:06 PM CDT) Specimen Narrative Performed At FINAL REPORT T-Quad 22 CT scan of the abdomen and pelvis. [...] pancreas, and adrenal glands are unremarkable. Both [place] kidneys are atrophic in natu re. The [...] is similar to previous. 4. Atrophic appearing [place] kidneys. 5. Diffuse anasarca. Bilateral pleural e ffusions. A verbal report was given to the patient 's nurse, Kael at the time of dictation. He was instructed to inform t he physician. Signed: Leo Trivedi MD Report Verified Date/Time:02/10/2019 16:34:31 Reading Location: [facility] [id number] [facility] Reading Room Procedure Note Interface, External Ris [...] pancreas, and adrenal glands are unremarkable. Both [place] kidneys are atrophic in natu re. The [...] is similar to previous. 4. Atrophic appearing [place] kidneys. 5. Diffuse anasarca. Bilateral pleural e ffusions. A verbal report was given to the patient 's nurse, Kael at the time of dictation. He was instructed to inform t he physician. Signed: Leo Trivedi MD Report Verified Date/Time: 02/10/2019 1 6:34:31 Reading Location: [facility] [id number] [facility] Reading Room Performing Organization Address City/State/Zipcode [...] (02/10/2019 11:37 AM CDT)Only the most recent of2 resultswithin the time period is included.Type and screen, automated (02/10/2019 5:46 AM CDT) ABO/RH AUTOMATED (BEAKER) O POSITIVE [facility] Ab Scrn NEGATIVE [facility] Specimen Blood Performing Organization Address City/State/Zipcode Phone Number [facility] [address] [place] [address] after 02/10/2019 Insurance Payer Benefit Plan / Group Subscriber ID Type Phone A ddress [employer] ALL xxxxxxxx Maps Contracted Advance Directives Patient has advance care planning documents, and code status on file. For more information, please contact:[facility], [place] [phone] Code Status Date Activated Date Inactivated Comments Full Code 02/27/2019 11:49 PM 03/02/2019 8:37 PM This code status was determined by: Patient Full Code 02/01/2019 2:41 PM 02/14/2019 6:31 PM This code status was determined by: Patient Full Code 01/16/2019 4:41 PM 02/01/2019 2:41 PM This code status was determined by: Patient
--- OUTSIDE RECORDS SUMMARY | 2020-02-11 15:27 | XMS REPORT | Continuity of Care Document ---
:1950 Author Organization [facility] t Address [address] [place] [address] [place] [address] Care Team Providers Name Role Phone Magaly Vera MD Primary Care Physician Heladio Domínguez Attending Clinician Petros Cevallos Attending Clinician Garry Attending Clinician Unavailable Lucita QUINONES Attending Clinician Unavailable Faiza Sheehan MD Attending Clinician Joe Attending Clinician Unavailable Miguelito Attending Clinician Unavailable Gabino Richards Attending Clinician Sim, Y Attending Clinician Unavailable System, Not In Attending Clinician Unavailable Jose HENNESSY Attending Clinician Unavailable Jose Hennessy MD Attending Clinician Sarkis Childers MD Attending Clinician Luis Amador MD Attending Clinician Curt CARRASCO Attending Clinician Li Lovell MD Attending Clinician DIANNE Attending Clinician Unavailable Dianne CARRASCO Attending Clinician Sharif Alonzo MD Attending Clinician Chris CARRASCO Attending Clinician Tara Portillo MD Attending Clinician Adriana Boland Attending Clinician Sharif CARRASCO Attending Clinician Basilia CARRASCO Attending Clinician Fabricio CARRASCO Attending Clinician Heladio Domínguez Admitting Clinician SARKIS CHILDERS Admitting Clinician Unavailable FABRICIO Admitting Clinician Unavailable Payers Payer Name Policy Type Policy Number Effective Date Expiration Source Date [facility] Contracted Problems Condition Condition Condition Status Onset Resolution Last Treating Co mments Source Name Details Category Date Date Treatment Clinician Date N/A Diagnosis Active 2020-01-29 Mem oria 01-24 07:57:00 l N/A 00:00: [place] 00 Active 01/25/2020 [facility] END STAGE Diagnosis [facility]-24 20:39:00 l DISEASE END 00:00: [place] STAGE 00 RENAL DISEASE Active 01/25/2020 [facility] N18.6 Diagnosis Active 2018-092019-08-31 [facility] oria 10-17 07:56:00 l N18.6 00:00: [place] 00 Active 08/16/2019 [facility] CHF CHF Disease Active 2018-[address] [facility] (congestiv (congestiv 0-21 [facility] - e heart e heart 00:00: t & Plan: Medic al failure) failure) 00 She has [facility] ed cardiac arrest x 2 in the last six months. She will require cardiolog y clearance prior to kidney transplan t. Pre-transp Pre-transp Disease Active 2018-[address] lant lant 0-21 [facility] - evaluation evaluation 00:00: t & Plan: Medical for for 00 She is Center chronic chronic NOT an kidney kidney acceptabl disease disease e candidate for kidney transplan t due to her cardiac status and impaired mobility. We will reassess her when she is able to ambulate without assistanc e. OTHER Diagnosis Active 2019-05-29 [facility] oria 05-29 17:59:00 l OTHER 00:00: [place] 00 Active 05/29/2019 [facility] Pelvic Pelvic Disease Active [address] [facility] hematoma, hematoma, 6-26 [facility] - female female 00:00: Medical 00 Center Injury of Injury of Disease Active [facility] multiple multiple 6-26 [facility] - pelvic pelvic 00:00: Medical organs organs 00 Center with open with open wound into wound into cavity cavity Wound Wound Disease Active Last [facility] dehiscence dehiscence 6-25 [facility] - 00:00: t & Plan: Medical 00 She Center required an I&D s/p ORIF. Her wound has healed with no evidence of infection . Abdominal Abdominal Disease Active [facility] wall wall 6-10 [facility] - hematoma hematoma 00:00: Medica l 00 Center Diabetes Diabetes Disease Active [facility] mellitus mellitus 6-10 Ass[facility] Bin es - 00:00: t & Plan: Medical 00 Diabetes Center managemen t per primary care. Essential Essential Disease Active Last [facility] hypertensi hypertensi 6-10 [facility] - on on 00:00: t & Plan: Medical 00 Blood Center pressure managemen t per cardiolog y or nephrolog y. Closed Closed Disease Active Last [facility] displaced displaced 5-20 [facility] - fracture fracture 00:00: t & Plan: Med ical of She has a Center anterior anterior history column of column of of falls left left and acetabulum acetabulum required , initial , initial a left encounter encounter ORIF in 2019. She will need to complete physical rehab prior to proceed with a kidney transplan t (she arrived to kidney clinic evaluatio n a stretcher today 9). Closed Closed Disease Active [facility] displaced displaced 5-20 [facility] - fracture fracture 00:00: Medica l of Center posterior posterior column of column of acetabulum acetabulum , initial , initial encounter encounter Cardiac Cardiac Disease Active [facility] arrest arrest 5-14 [facility] - 00:00: Medical 00 Center Anemia Problem Resolve 2020-02-01 Pato jing (disorder) d 22:07:05 l Anemia Kw[place] (disorder) Resolved Problem 02/01/2020 [facility] Chronic Problem Resolve 2020-02-01 Mem oria kidney d 22:07:05 l disease Chronic [place] n (disorder) kidney disease (disorder) [facility] Glaucoma Problem Resolve 2020-02-01 Me moria (disorder) d 22:07:05 l Glaucoma [place] (disorder) Resolved Problem 02/01/2020 [facility] Heart Problem Resolve 2020-02-01 Pato jing murmur d 22:07:05 l (finding) Heart [place] n murmur (finding) Resolved Problem 02/01/2020 [facility] Asthenia Problem Active 2020-02-01 Mem oria (finding) 22:07:05 l Asthenia [place] (finding) Active Problem 02/01/2020 [facility] Dialysis Problem Active 2020-02-01 Mem oria finding 22:07:05 l (finding) Dialysis Her borden finding (finding) Active Problem 02/01/2020 [facility] Hypertensi Problem Active 2020-02-01 M emoria ve 22:07:05 l disorder, [place] systemic Hypertensi arterial ve (disorder) disorder, systemic arterial (disorder) Active Problem 02/01/2020 [facility] End stage Problem Active 2020-02-01 Me moria renal 22:07:05 l failure on End [place] n dialysis stage (disorder) renal failure on dialysis (disorder) Active Problem 02/01/2020 [facility] Hyperlipid Problem Active 2020-02-01 M emoria emia 22:07:05 l (disorder) [place] Hyperlipid emia (disorder) Active Problem 02/01/2020 [facility] Injury of Problem Active 2020-02-01 Me moria buttock 22:07:05 l (disorder) Injury Herm faiza of buttock (disorder) Active Problem 02/01/2020 [facility] Wound of Problem Active 2020-02-01 Mem oria skin 22:07:05 l (disorder) Wound of He rmann skin (disorder) Active Problem 02/01/2020 right heel [facility] ESRD on ESRD on Disease Active Last St hemodialys hemodialys Assessmen Real - is is t & Plan: Medical End stage Center renal disease secondary to DM/HTN. She has required dialysis since early 2018. Cellulitis Problem 2019-2019-05-31 2019-05-31 Memoria of left 05-29 22:44:19 22:44:19 l lower limb 17:00: [place] n Cellulitis 00 of left lower limb 05/29/2019 05/31/2019 [facility] Allergies, Adverse Reactions, Alerts Allergy Allergy Status Severity Reaction(s) Onset Inactive Treating Comm ents Source Name Type Date Date Clinician Heparin Propensi Active Positive [facility] Analogue [facility]10 heparin [facility] - s adverse 00:00: antibody; Medica l reaction 00 confirmat Josee r s jaya KRYSTIN [facility] Diphenhy Propensi [address] [facility] dramine ty to 6-02 [facility] - Hcl adverse 00:00: Medical reaction 00 Center s Codeine Drug Active Delirium [facility] Allergy 5-14 [facility] - 00:00: Medical 00 Center Meperidi Propensi Active Delirium [facility] ne ty to 5-14 [facility] - adverse 00:00: Medical reaction 00 [place] Morphine Propensi Active Delirium [facility] ty to 5-14 [facility] - adverse 00:00: Medical reaction 00 Center s Tetracyc Propensi Active [facility] lines ty to 5-14 [facility] - adverse 00:00: Medical reaction 00 [place] Tetracyc Propensi Active Hives, 2016-09 [place] line ty to Shortness Of 2-26 Meth carter adverse Breath 00:00: st reaction 00 s to drug codeine codeine Active Memoria l [place] tetracyc tetracyc Active Memori a line line l [place] morphine morphine Active Moderate Pato jing <sup>1</ <sup>1</ l sup> sup> [place] Demerol Demerol Active Memoria l [place] Family History Family Member Diagnosis Comments Start Date Stop Date Source Natural father Diabetes [facility] Natural father Hypertension [facility] Natural mother Hypertension [facility] Natural sister No Known Problem [facility] Natural son No Known Problem [facility] Social History Social Habit Start Date Stop Date Quantity Comments Source History SDOH [facility] - Alcohol Std Drinks Medica l Center History SDOH [facility] - Alcohol Binge Medical Jessie ter Sex Assigned At [facility] Social History 2019-05-11 2019-05-11 [facility] 14:40:07 14:40:07 History SDOH 2019-02-28 2019-02-28 1 ERIK Alcazar - Alcohol Frequency 00:00:00 00:00:00 [facility] Tobacco Comment 2019-01-16 2019-01-16 Patient ERIK Zayas kes - 00:00:00 00:00:00 intubated/sedate [facility] d, this is from family Cigarettes smoked 2017-09-01 2017-09-01 [facility] [employer] current (pack per 00:00:00 00:00:00 day) - Reported Cigarette 2017-09-01 2017-09-01 Rendon Method ist pack-years 00:00:00 00:00:00 History of tobacco 1970-01-16 1971-01-16 Current smoker [facility] Heladio Alcazar - use 00:00:00 00:00:00 [facility] Smoking Status Start Date Stop Date Source Former smoker 2019-06-25 00:00:00 2019-06-25 00:00:00 [facility] Medications Ordered Filled Start Stop Current Ordering Indication Dosage Frequency Signature Comments Components Source Medication Medication Date Date Medication? Clinician (SIG) Name Name Acetaminoph 2019-0 Yes 1 tab, PO, Memoria en 325 MG / 5-27 Q6H, PRN l tramadol 19:11: Pain, # 30 Her borden hydrochlori 00 tab, 0 de 37.5 MG Refill(s), Oral Tablet given to [Ultracet] patient pregabalin 2019-0 Yes 25 mg = 1 Me moria 25 mg oral 5-27 cap, PO, l capsule 17:48: BID, # 60 Adela nn 00 cap, 0 Refill(s) pregabalin 2020-0 No 25 mg = 1 Me moria 25 mg oral 5-27 cap, PO, l capsule 17:46: BID, # 60 Adela nn 00 cap, 0 Refill(s) pregabalin 2020-0 No 25 mg = 1 Me moria 25 mg oral 5-27 cap, PO, l capsule 17:37: BID, # 60 Adela nn 00 cap, 0 Refill(s) Norvasc 2020-0 No Notes: Memoria 5-27 (Same as: l 14:00: Norvasc) Kw[place] 00 Aspirin 81 2020-0 No Notes: Do Me moria MG Enteric 5-27 not crush l Coated 14:00: or chew. [place] Tablet 00 (Same As: Ecotrin) Imdur No Notes: Memoria 5-27 (Same l 14:00: as:Imdur) "Do Not Crush" Take on empty stomach/ full glass of water. Do not crush Lisinopril No Notes: Memor ia 5-27 (Same as: l 14:00: Prinivil, Zestril) NIFEdipine No Notes: Memor ia 90 mg oral 5-27 (Same as: l tablet, 14:00: Adalat Kwame extended 00 CC,Procard release ia XL) "Do Not Crush" "Avoid grapefruit and grapefruit juice" atorvastati No Notes: Pato jing n 5-27 (Same as: l 02:00: Lipitor) Hydralazine No Notes: Pato jing Hydrochlori 5-26 (Same as: l de 50 MG 23:00: Apresoline Her borden Oral Tablet ) May interfere w/enteral feedings Take With Food Famotidine No Notes: Memor ia 20 MG Oral 5-26 (Same as: l Tablet 22:00: Pepcid) Lyrica No Notes: Memoria 5-26 (Same as: l 22:00: Lyrica) BD Normal No Notes: Memori a Saline - Same as: l Flush 21:13: BD Posiflush Sterile Sodium No 250 mL, Memoria Chloride - Route: l 0.9% IV 21:13: IVPB, Start date: 01/29/20 16:13:00 CDT, Duration: 30 day, Stop date: 02/28/20 16:12:00 CDT, PRN Line Flush, 0 Acetaminoph No 1,000 mg, M emoria en - Route: PO, l 16:25: Drug form: TAB, ONCE, Dosing Weight 49.091, kg, PRN Pain Score 1-3, Start date: 01/29/20 11:25:00 CDT Fentanyl No Notes: Memoria 5-26 (Same as: l 16:25: Sublimaze) Preservat jenn free. Flumazenil No Notes: Memor ia - (Same as: l 16:25: Romazicon) Naloxone No Notes: Memoria - Same as l 16:25: Narcan Ondansetron No 4 mg, Memor ia - Route: l 16:25: IVP, ONCE, Dosing Weight 49.091, kg, PRN Nausea & Vomiting, Start date: 01/29/20 11:25:00 CDT Acetaminoph No Notes: Pato jing en 325 MG / - (Same as: l Hydrocodone 16:19: [place] Adela nn Bitartrate 00 325/5) Do 5 MG Oral not exceed Tablet 4gm/day of [[place] acetaminop 5/325] hen. Acetaminoph No Notes: Max Memoria en - acetaminop l 16:19: hen 4000 mg/day (4 gm/day). (Same as: Tylenol Extra Strength) Clonidine No Notes: Memori a Hydrochlori 01-28 (Same As: l de 0.2 MG 16:16: Catapres) Her borden Oral Tablet cyclobenzap No Notes: Pato jing rine - (Same As: l 16:16: Flexeril) Zofran No Notes: Memoria - (Same as: l 16:16: Zofran) propofol No Route: IV, Mem oria (ANES) - Drug form: l 15:22: INJ, ONCE, Stop date: 01/29/20 10:22:00 CDT vancomycin No Route: IV, M emoria (ANES) 1000 01-28 Drug form: l mg 14:55: INJ, Start date: 01/29/20 9:55:00 CDT, Stop date: 01/29/20 10:55:00 CDT Sodium No Route: IV, Memor ia Chloride - Total l 0.9% IV 14:50: Volume: [place] (ANES) 500 00 500, Start mL date: 01/29/20 9:50:00 CDT, Stop date: 01/29/20 10:50:00 CDT Vancomycin 2019-0 No 2000 mg: Me moria 5-26 infuse l 13:00: over 2.5 hours ondansetron 2019-0 No Route: IV, Memoria (ANES) 5-15 Drug form: l 14:43: INJ, ONCE, Stop date: 01/18/20 9:43:00 CDT Acetaminoph 2019-0 No Notes: Max Memoria en 5-15 acetaminop l 14:42: hen 4000 mg/day (4 gm/day). (Same as: Tylenol Extra Strength) Fentanyl No Notes: Memoria 5-15 (Same as: l 14:42: Sublimaze) Preservat jenn free. Flumazenil No Notes: Memor ia 5-15 (Same as: l 14:42: Romazicon) Naloxone 2019-0 No Notes: Memoria 5-15 Same as l 14:42: Narcan Ondansetron No Notes: Pato jing 5-15 (Same as: l 14:42: Zofran) MEDICATION WASTE Product Size: 4 mg Product Wasted: ___ mg glycopyrrol 2019- No Route: IV, Memoria ate (ANES) 5-15 Drug form: l 13:57: INJ, ONCE, Stop date: 01/18/20 8:57:00 CDT propofol 2020-0 No Route: IV, Mem oria (ANES) 5-15 Drug form: l 13:52: INJ, ONCE, Stop date: 01/18/20 8:52:00 CDT fentaNYL 2020-0 No Route: IV, Mem oria (ANES) 5-15 Drug form: l 13:42: INJ, ONCE, Stop date: 01/18/20 8:42:00 CDT vancomycin 2019-0 No Route: IV, M emoria (ANES) 1000 5-15 Drug form: l mg 13:05: INJ, Start date: 01/18/20 8:05:00 CDT, Stop date: 01/18/20 9:05:00 CDT Sodium 2020-0 No Route: IV, Memor ia Chloride 5-15 Total l 0.9% IV 13:02: Volume: [place] (ANES) 500 00 500, Start mL date: 01/18/20 8:02:00 CDT, Stop date: 01/18/20 9:02:00 CDT Vancomycin 2020-0 No 2000 mg: Me moria 5-15 infuse l 13:00: over 2.5 Kwame 00 hours For adult patients only: Round to nearest 250 mg per Medical Staff approval MEDICATION WASTE Product Size: 1000 mg Product Wasted: ___ mg tramadol 2018-09 No 50 mg, 1 Memor ia hydrochlori 2-27 tab, l de 50 MG 18:59: Route: PO, Her borden Oral Tablet 00 Drug form: TAB, ONCE, Dosing Weight 49.091, kg, Start date: 08/31/19 12:59:00 [employer], Stop date: 08/31/19 12:59:00 [employer] Hydralazine 2018-09 No Notes: Pato jing 2-27 (Same as: l 18:12: Apresoline ) Push over 5 minutes Acetaminoph 2018-09 No Notes: Max Memoria en 2- acetaminop l 18:12: hen 4000 Kwame 00 mg/day (4 gm/day). (Same as: Tylenol Extra Strength) Fentanyl 2018-09 No Notes: Memoria 2-27 (Same as: l 18:12: Sublimaze) Preservat jenn free. Flumazenil 2018-09 No Notes: Memor ia 2-27 (Same as: l 18:12: Romazicon) Kwame 00 Naloxone 2018-09 No Notes: Memoria 2-27 Same as l 18:12: Narcan Ondansetron 2018-09 No Notes: Pato jing 2-27 (Same as: l 18:12: Zofran) MEDICATION WASTE Product Size: 4 mg Product Wasted: ___ mg Promethazin 2018-09 No Notes: Do M emoria e 2-27 not give l 18:12: IV push. Kwame 00 (Same as: Phenergan) 72 HR 2018-09 Yes Notes: Memoria Scopolamine - Change l 0.0139 18:12: patch Kwame MG/HR 00 every 72 Transdermal hours Patch (Same as: Transderm- Scop) Insulin 2018-09 No Notes: Memoria Lispro - (Same as: l 18:12: Humalog) Roll in palms of hands gently; Do not shake vigorously . WASTE: F/P - Black; E - Municipal Trash Bin Stable for 28 days at room temperatur e. Expires in days from ____Date fentaNYL 2018-09 No Route: IV, Mem oria (ANES) 11-01 Drug form: l 17:29: INJ, ONCE, Stop date: 08/31/19 11:29:00 [employer] dexamethaso 2018-09 No Route: IV, Memoria ne (ANES) 11-01 Drug form: l 17:03: INJ, ONCE, Stop date: 08/31/19 11:03:00 [employer] metoclopram 2018-09 No Route: IV, Memoria robin (ANES) 11-01 Drug form: l 17:03: INJ, ONCE, Stop date: 08/31/19 11:03:00 [employer] fentaNYL 2018-09 No Route: IV, Mem oria (ANES) 11-01 Drug form: l 17:03: INJ, ONCE, Stop date: 08/31/19 11:03:00 [employer] propofol 2018-09 No Route: IV, Mem oria (ANES) 11-01 Drug form: l 17:03: INJ, ONCE, Stop date: 08/31/19 11:03:00 [employer] phenylephri 2018-09 No Route: IV, Memoria ne (ANES) - Drug form: l 17:03: INJ, ONCE, Stop date: 08/31/19 11:03:00 [employer] lidocaine 2018-09 No Route: IV, Me moria (ANES) 11-01 Drug form: l 16:58: INJ, ONCE, Stop date: 08/31/19 10:58:00 [employer] vancomycin 2018-09 No Route: IV, M emoria (ANES) 1000 2- Drug form: l mg 16:25: INJ, Start [place] 00 date: 08/31/19 10:25:00 [employer], Stop date: 08/31/19 11:25:00 [employer] Sodium 2018-09 No Route: IV, Memor ia Chloride 2-27 Total l 0.9% IV 16:20: Volume: [place] (ANES) 500 00 500, Start mL date: 08/31/19 10:20:00 [employer], Stop date: 08/31/19 11:20:00 [employer] Ascorbic 2018-09 Yes 1 tab, PO, Mem oria Acid 60 MG 2-27 Daily, 0 l / Calcium 14:39: Refill(s) Her borden Pantothenat 00 e 10 MG / D-BIOTIN 0.3 MG / Folic Acid 0.8 MG / Niacinamide 20 MG / pyridoxine 10 MG / Riboflavin 1.7 MG / Thiamine 1.5 MG / Vitamin B 12 0.006 MG Oral Tablet [Rima-Wm] Vitamin C 2018-09 Yes 500 mg = 1 Me moria 500 mg oral 2-27 tab, PO, l tablet 14:38: Daily, 0 Kwame 00 Refill(s) NIFEdipine 2018-09 Yes 90 mg = 1 Me moria 90 mg oral 2-27 tab, PO, l tablet, 14:32: Daily, 0 [place] n extended 00 Refill(s) release Vancomycin 2018-09 No 2001 mg: Me moria 2-27 infuse l 13:00: over 2.5 Kwame 00 hours For adult patients only: Round to nearest 250 mg per Medical Staff approval MEDICATION WASTE Product Size: 1000 mg Product Wasted: ___ mg Keflex No Notes: Memoria 9-25 Take on l 02:26: empty [place] 00 stomach. (Same As: Keflex) Cephalexin Yes 500 mg = 1 M emoria 500 MG Oral 9-25 cap, PO, l Capsule 02:20: QID, X 7 [place] n [Keflex] 00 day, # 28 cap, 0 Refill(s) Tramadol No 50 kg, Memori a - Priority: l 23:46: STAT, Kwame 00 Start date: 05/29/19 18:46:00 CDT, Stop date: 05/29/19 18:46:00 CDT Ondansetron 2018- Yes Notes: Pato jing 05-11 (Same as: l 17:55: Zofran) MEDICATION WASTE Product Size: 4 mg Product Wasted: ___ mg propofol No Route: IV, Mem oria (ANES) 05-11 Drug form: l 15:27: INJ, ONCE, Stop date: 05/11/19 10:27:00 CDT lidocaine 2018- No Route: IV, Me moria (ANES) 05-11 Drug form: l 15:27: INJ, ONCE, Stop date: 05/11/19 10:27:00 CDT vancomycin No Route: IV, M emoria (ANES) 1000 05-11 Drug form: l mg 14:46: INJ, Start date: 05/11/19 9:46:00 CDT, Stop date: 05/11/19 10:46:00 CDT Sodium 2018-0 No Route: IV, Memor ia Chloride 05-11 Total l 0.9% IV 14:41: Volume: Kwame (ANES) 500 00 500, Start mL date: 05/11/19 9:41:00 CDT, Stop date: 05/11/19 10:41:00 CDT lidocaine 2018- Yes 1 patch, Pato jing 1.8% 05-11 TOP, l topical 13:32: Daily, 0 [place] 00 Refill(s) metoprolol Yes 50 mg, PO, M emoria tartrate 05-11 Q12H, 0 l 13:31: Refill(s) Famotidine Yes 20 mg = 1 Me moria 20 MG Oral 05-11 tab, PO, l Tablet 13:31: BID, 0 Refill(s) cyclobenzap Yes 5 mg = 1 Me moria rine 5 mg 05-11 tab, PO, l oral tablet 13:30: Q8H, PRN rm 00 Spasm, 0 Refill(s) Vancomycin No 2001 mg: Me moria 05-11 infuse l 12:00: over 2.5 [place] 00 hours For adult patients only: Round to nearest 250 mg per Medical Staff approval MEDICATION WASTE Product Size: 1000 mg Product Wasted: ___ mg Hydralazine Yes 50 mg = 1 M emoria Hydrochlori 9-05 tab, PO, l de 50 MG 21:16: Q6H, 0 Kwame Oral Tablet 00 Refill(s) Amlodipine Yes 10 mg = 1 Me moria 10 MG Oral 9-05 tab, PO, l Tablet 21:16: Daily [place] [Norvasc] 00 Ondansetron Yes 4 mg = 1 Me moria 4 MG Oral 9-05 tab, PO, l Tablet 21:16: PRN, PRN [place] [Zofran] 00 Nausea/Vom iting, 0 Refill(s) cyclobenzap No 10 mg = 1 M emoria rine 10 mg 9-05 tab, PO, l oral tablet 21:15: PRN, PRN He rmann 00 for spasms, 0 Refill(s) lisinopril Yes 40 mg = 1 Me moria 40 mg oral 9-05 tab, PO, l tablet 21:14: Daily, 0 Kwame 00 Refill(s) Imdur 30 mg Yes 30 mg = 1 M emoria oral 9-05 tab, PO, l tablet, 21:14: Q-Higginbotham-W-F, Adela nn extended 00 0 release Refill(s) Clonidine Yes 0.2 mg = 1 Me moria Hydrochlori 9-05 tab, PO, l de 0.2 MG 21:13: PRN, 0 [place] n Oral Tablet 00 Refill(s) tramadol Yes 50 mg = 1 Pato jing hydrochlori 9-05 tab, PO, l de 50 MG 21:13: PRN, PRN Adela nn Oral Tablet 00 Pain, 0 Refill(s) calcium 2018- Yes 2,001 mg = Pato jing acetate 667 9-05 3 tab, PO, l MG Oral 21:12: TID, 0 Kwame Tablet 00 Refill(s) Aspirin 81 2019- Yes 81 mg = 1 Me moria MG Enteric 9-05 tab, PO, l Coated 21:11: Daily [place] Tablet 00 atorvastati Yes 40 mg = 1 M emoria n 40 mg 9-05 tab, PO, l oral tablet 21:11: Bedtime, 0 [place] 00 Refill(s) metoprolol 2019- No 25mg Q.5D Take [address] [facility] (LOPRESSOR) 03-02 06-28 by mouth 2 L ukes - 25 MG 10:12: 00:00 (two) Medical tablet 19 :00 times Center daily. cloNIDine 2018- Yes hypertensio .2mg Take 0.[address] [facility] HCl 6-26 n mg by [facility] - (CATAPRES) 02:59: mouth Medica l 0.2 MG 15 every 8 Center tablet (eight) hours as needed. traMADol Yes 50mg Take [address] [facility] (ULTRAM) 50 6-26 by mouth Luke s - mg tablet 02:43: every 6 Medic al 22 (six) Center hours as needed for Pain. lisinopril Yes hypertensio 40mg QD Take [address] [facility] (PRINIVIL,Z 6-26 n by mouth Luke s - ESTRIL) 40 02:42: daily. Medic al MG tablet 25 Center epoetin Yes 4000U Inject 1 [facility] rl-epbx 6-13 mL (4,000 [facility] - (RETACRIT) 00:00: Units Medica l 4,000 00 total) Center unit/mL subcutaneo Soln usly 3 injection (three) times a week at bedtime. famotidine Yes 20mg QD Take 1 [facility] (PEPCID) 20 6-13 tablet (20 Tigist kes - MG tablet 00:00: mg total) Med ical 00 by mouth Center daily. aspirin 81 2020- No 81mg QD Take [address] [facility] MG chewable 6-13 06-12 tablet (81 L ukes - tablet 00:00: 23:59 mg total) Medic al 00 :00 by mouth Center daily. doxazosin 2019- No 2mg QD Take [address] (CARDURA) 2 6-12 06-12 by mouth Bin es - MG tablet 14:53: 00:00 nightly. Med ical 19 :00 Center ramipril 2019-0 2019- No 2.5mg QD Take 2.[address] [facility] (ALTACE) 02-14-12 mg by [facility] - 2.5 MG 14:53: 00:00 mouth Medical capsule 19 :00 nightly. Center metoprolol 2019- No 50mg Q.5D Take [address] [facility] (LOPRESSOR) 02-14 tablet (50 L ukes - 50 MG 00:00: 23:59 mg total) Medica l tablet 00 :00 by mouth 2 Center (two) times daily. atorvastati 2019- No 40mg QD Take [address] [facility] n (LIPITOR) 02-14 tablet (40 L ukes - 40 MG 00:00: 23:59 mg total) Medica l tablet 00 :00 by mouth Center nightly. ramipril 2018- No 10mg QD Take [address] [facility] (ALTACE) 10 02-14 capsule Luke s - MG capsule 00:00: 00:00 (10 mg Medi lucille 00 :00 total) by Center mouth daily. hydrOXYzine 2018- No 25mg Take [address] [facility] (ATARAX) 25 02-14 tablet (25 L ukes - MG tablet 00:00: 23:59 mg total) Me dical 00 :00 by mouth 3 Center (three) times daily as needed for Itching for up to 10 days. traMADol 2018- No 50mg Take [address] [facility] (ULTRAM) 50 02-14 tablet (50 L ukes - mg tablet 00:00: 23:59 mg total) Me dical 00 :00 by mouth Center every 6 (six) hours as needed for up to 10 days. Max Daily Amount: 200 mg calcium Yes 667mg Take 667 [facility] acetate 5-14 mg by [facility] - (PHOSLO) 17:01: mouth 3 Medica l 667 mg 38 (three) Center capsule times daily with meals. hydrALAZINE 2016-09 Yes 25mg [id number] Take 25 mg [place] (APRESOLINE - [id number] by mouth 3 Methodi ) 25 MG 13:32: 3D (three) st tablet 53 times a day. travoprost 2016-09 Yes 1[drp] QD Administer [facility] (TRAVATAN-Z 10-31 1 drop to Met hodi ) 0.004 % 13:32: both eyes st 53 nightly. brimonidine 2016-09 Yes 1[drp] Q12H Administer [facility] -timolol 10-31 1 drop to Method i (COMBIGAN) 13:32: both eyes st 0.2-0.5 % 53 every 12 ophthalmic (twelve) solution hours. furosemide 2016-09 Yes 80mg QD Take 80 mg [place] (LASIX) 80 10-31 by mouth Metho di mg tablet 13:32: daily. st 52 SPIRONOLACT 2016-09 Yes 75mg Take 75 mg [place] ONE ORAL 10-31 by mouth Methodi 13:32: daily. st 52 Vital Signs Vital Name Observation Time Observation Value Comments Source Temperature Oral (F) 2020-01-30 20:08:00 97.6 F [facility] Heart Rate 2020-01-30 20:08:00 [facility] Respitory Rate 2020-01-30 20:08:00 [facility] Systolic (mm Hg) 2020-01-30 20:08:00 [facility] Diastolic (mm Hg) 2020-01-30 20:08:00 [facility] Temperature Oral (F) 2020-01-30 16:05:00 97.7 F [facility] Heart Rate 2020-01-30 16:05:00 [facility] Respitory Rate 2020-01-30 16:05:00 [facility] Systolic (mm Hg) 2020-01-30 16:05:00 [facility] Diastolic (mm Hg) 2020-01-30 16:05:00 [facility] Heart Rate 2020-01-30 13:01:00 [facility] Respitory Rate 2020-01-30 13:01:00 [facility] Systolic (mm Hg) 2020-01-30 13:01:00 [facility] Diastolic (mm Hg) 2020-01-30 13:01:00 [facility] Temperature Oral (F) 2020-01-30 09:00:00 [facility] 2020-01-29 12:55:00 [facility]18 [facility] Weight 2020-01-29 12:55:00 [facility] BMI Calculated 2020-01-29 12:55:00 [facility] Respitory Rate 2020-01-18 16:00:00 [facility] Systolic (mm Hg) 2020-01-18 16:00:00 [facility] Diastolic (mm Hg) 2020-01-18 16:00:00 [facility] Respitory Rate 2020-01-18 15:45:00 [facility] Systolic (mm Hg) 2020-01-18 15:45:00 [facility] Diastolic (mm Hg) 2020-01-18 15:45:00 [facility] [place] Respitory Rate 2020-01-18 15:30:00 [facility] Systolic (mm Hg) 2020-01-18 15:30:00 [facility] [place] Diastolic (mm Hg) 2020-01-18 15:30:00 [facility] Height 2020-01-18 12:57:00 170.18 cm [facility] Weight 2020-01-18 12:57:00 [facility] BMI Calculated 2020-01-18 12:57:00 [facility] Temperature Oral (F) 2020-01-18 12:55:00 98 F [facility] Height 2020-01-17 15:08:00 170.18 cm [facility] Weight 2020-01-17 15:08:00 [facility] BMI Calculated 2020-01-17 15:08:00 [facility] Respitory Rate 2019-08-31 19:00:00 [facility] Systolic (mm Hg) 2019-08-31 19:00:00 [facility] Diastolic (mm Hg) 2019-08-31 19:00:00 [facility] Respitory Rate 2019-08-31 18:45:00 [facility] Systolic (mm Hg) 2019-08-31 18:45:00 [facility] Diastolic (mm Hg) 2019-08-31 18:45:00 [facility] Respitory Rate 2019-08-31 18:30:00 [facility] Systolic (mm Hg) 2019-08-31 18:30:00 [facility] Diastolic (mm Hg) 2019-08-31 18:30:00 [facility] Temperature Oral (F) 2019-08-31 14:30:00 98 F [facility] Height 2019-08-31 14:00:00 170.18 cm [facility] Weight 2019-08-31 14:00:00 [facility] BMI Calculated 2019-08-31 14:00:00 [facility] Height 2019-08-27 14:21:00 170.18 cm [facility] Weight 2019-08-27 14:21:00 [facility] BMI Calculated 2019-08-27 14:21:00 [facility] Systolic blood 2019-06-25 11:06:00 160 mm[Hg] [facility] Diastolic blood 2019-06-25 11:06:00 65 mm[Hg] [facility] Heart rate 2019-06-25 11:06:00 72 /min [facility] Body temperature 2019-06-25 11:06:00 36.61 [facility] Respiratory rate 2019-06-25 11:06:00 16 /min [facility] Body height 2019-06-25 11:06:00 167.6 cm [facility] Body weight Measured 2019-06-25 11:06:00 50.803 kg [facility] BMI 2019-06-25 11:06:00 18.08 kg/m2 [facility] Systolic (mm Hg) 2019-05-30 04:38:00 [facility] Diastolic (mm Hg) 2019-05-30 04:38:00 [facility] Systolic (mm Hg) 2019-05-30 02:31:00 [facility] Diastolic (mm Hg) 2019-05-30 02:31:00 [facility] Systolic (mm Hg) 2019-05-30 02:14:00 [facility] Diastolic (mm Hg) 2019-05-30 02:14:00 [facility] Heart Rate 2019-05-29 21:33:00 [facility] Respitory Rate 2019-05-29 21:33:00 [facility] Temperature Oral (F) 2019-05-29 21:33:00 97.9 F [facility] Weight 2019-05-29 21:33:00 [facility] Respitory Rate 2019-05-11 18:15:00 [facility] Systolic (mm Hg) 2019-05-11 18:15:00 [facility] [place] Diastolic (mm Hg) 2019-05-11 18:15:00 [facility] Respitory Rate 2019-05-11 18:00:00 [facility] Systolic (mm Hg) 2019-05-11 18:00:00 [facility] [place] Diastolic (mm Hg) 2019-05-11 18:00:00 [facility] Respitory Rate 2019-05-11 17:45:00 [facility] Systolic (mm Hg) 2019-05-11 17:45:00 [facility] Diastolic (mm Hg) 2019-05-11 17:45:00 [facility] Height 2019-05-11 12:30:00 170.18 cm [facility] Weight 2019-05-11 12:30:00 [facility] BMI Calculated 2019-05-11 12:30:00 [facility] Temperature Oral (F) 2019-05-11 12:00:00 98.1 F [facility] Height 2019-05-10 21:05:00 170.18 cm [facility] Weight 2019-05-10 21:05:00 [facility] BMI Calculated 2019-05-10 21:05:00 [facility] Oxygen saturation in 2019-03-02 17:00:00 98 /min [facility] Arterial blood by Medical Ce ntjazmin Pulse oximetry Procedures Procedure Date / Time Performing Clinician Source Performed VASCULAR DIAGRAM -SCAN 2019-04-19 12:00:39 Provider, Default [facility] RHYTHM STRIP - SCAN 2019-03-05 13:51:03 Provider, Default [facility] HEMOGLOBIN AND 2019-03-02 10:09:00 Spencer Amador [facility] es - HEMATOCRIT [facility] BASIC METABOLIC PANEL 2019-03-02 04:26:00 Asher Childers [facility] (7) [facility] XR PELVIS 1 OR 2 VIEWS 2019-03-01 11:18:00 Robert Lovell [facility] HEMODIALYSIS INPATIENT 2019-03-01 08:43:41 Petros Cerrato [facility] HEPATITIS B SURFACE 2019-03-01 05:33:00 Petros Cerrato [facility] BASIC METABOLIC PANEL 2019-03-01 05:33:00 Asher Childers [facility] (7) [facility] CBC W/PLT COUNT & AUTO 2019-03-01 05:33:00 Spencer Amador [facility] [employer] CULTURE + SMEAR 2019-02-28 08:46:04 [facility] ANAEROBIC CULTURE 2019-02-28 08:46:04 Nas [facility] FUNGUS CULTURE + SMEAR 2019-02-28 08:46:04 Robert Lovell [facility] SURGICALLY OBTAINED 2019-02-28 08:46:04 Robert Lovell [facility] - CULTURE + GRAM STAIN [facility] SPIN/CONCENTRATION 2019-02-28 08:46:00 Robert Lovell [facility] CLOSURE,WOUND TORSO 2019-02-28 08:00:00 Robert Lovell [facility] I&D,ABSCESS PELVIS/ HIP 2019-02-28 08:00:00 Nas [facility] BASIC METABOLIC PANEL 2019-02-28 03:59:00 Asher Childers [facility] () [facility] BASIC METABOLIC PANEL 2019-02-27 23:10:00 Hubert Hennessy [facility] () [facility] CBC W/PLT COUNT & AUTO 2019-02-27 23:10:00 Hubert Hennessy [facility] RHYTHM STRIP - SCAN 2019-02-16 14:53:09 Provider, [facility] RHYTHM STRIP - SCAN 2019-02-15 11:30:49 Provider, [facility] RHYTHM STRIP - SCAN 2019-02-15 11:30:47 Provider, [facility] RHYTHM STRIP - SCAN 2019-02-15 11:30:46 Provider, [facility] CARDIAC CATH REPORT - 2019-02-15 11:30:44 Provider, Default [facility] RHYTHM STRIP - SCAN 2019-02-15 11:30:30 Provider, Default [facility] POCT-GLUCOSE METER 2019-02-14 12:07:00 Charles Cui [facility] CBC W/PLT COUNT & AUTO 2019-02-14 04:39:00 Charles Cui [facility] BASIC METABOLIC PANEL 2019-02-14 03:41:00 Andrew Mcmillan [facility] () [facility] CALCIUM, IONIZED 2019-02-14 03:41:00 Andrew Mcmillan [facility] MAGNESIUM 2019-02-14 03:41:00 Andrew Mcmillan [facility] PHOSPHORUS 2019-02-14 03:41:00 Andrew Mcmillan [facility] POCT-GLUCOSE METER 2019-02-13 21:40:00 Basilia [facility] POCT-GLUCOSE METER 2019-02-13 [facility]:18[facility] 2019-02-13 13:12:00 [facility] PO[facility]-GLUCOSE METER 2019-02-13 07:57:00 [facility]IC MET[facility]OLIC PANEL 2019-02-13 06:12:00 [facility] CALCIUM, IONIZED 2019-02-13 06:12:00 Charles Cui [facility] PHOSPHORUS 2019-02-13 06:12:00 Charles Cui [facility] MAGNESIUM 2019-02-13 06:12:00 [facility] W[facility] & AUTO 2019-02-13 06:12:00 Charles Cui [facility] HEMODIALYSIS INPATIENT 2019-02-12 21:10:[address] [facility] S [facility] TRANSFUSION SERVICE 2019-02-12 17:50:07 Provider, Default [facility] REPORT [facility] POCT-GLUCOSE METER 2019-02-12 13:32:00 Charles Cui [facility] POCT-GLUCOSE METER 2019-02-12 08:40:00 Tyrel Boland [facility] COMPREHENSIVE METABOLIC 2019-02-12 04:34:00 Sienna Watt [facility] MAGNESIUM 2019-02-12 04:34:00 Sienna Watt [facility] PHOSPHORUS 2019-02-12 04:34:00 Sienna Watt [facility] APTT 2019-02-12 04:34:00 Tyrel Boland [facility] HEPARIN ANTIBODY 2019-02-12 04:34:00 Tyrel Boland [facility] PLATELET AGGREGATION: 2019-02-12 04:34:00 Tyrel Boland [facility] SEROTONIN RELEASE ASSAY 2019-02-12 04:34:00 Tyrel Boland [facility] CBC W/PLT COUNT & AUTO 2019-02-12 04:34:00 Sienna Watt [facility] PREPARE LEUKO-REDUCED 2019-02-11 23:54:00 Arden Ye [facility] RBC [facility] POCT-GLUCOSE METER 2019-02-11 21:05:00 Tyrel Boland [facility] TRANSFUSION SERVICE 2019-02-11 17:50:07 Provider, Hoang [facility] REPORT - [facility] POCT-GLUCOSE METER 2019-02-11 16:34:00 Tyrel Boland [facility] POCT-GLUCOSE METER 2019-02-11 12:22:00 Tyrel Boland [facility] POCT-GLUCOSE METER 2019-02-11 08:20:00 Tyrel Boland [facility] COMPREHENSIVE METABOLIC 2019-02-11 05:24:00 Sienna Watt [facility] MAGNESIUM 2019-02-11 05:24:00 Sienna Watt [facility] PHOSPHORUS 2019-02-11 05:24:00 Sienna Watt [facility] CBC W/PLT COUNT & AUTO 2019-02-11 05:24:00 [facility] POCT-GLUCOSE METER 2019-02-10 21:07:00 [facility] POCT-GLUCOSE METER 2019-02-10 17:51:00 [facility] CT ABDOMEN/PELVIS WITH 2019-02-10 15:06:00 Krystian [facility] IV CONTRAST [facility] HEMODIALYSIS INPATIENT 2019-02-10 12:36:00 Fernando Larson [facility] PREPARE LEUKO-REDUCED 2019-02-10 11:42:00 Krystian [facility] RBC [facility] TRANSFUSE LEUKO-REDUCED 2019-02-10 11:37:45 Ephraim Arden [facility] RED BLOOD CELLS [facility] TYPE AND SCREEN, 2019-02-10 05:46:00 Arden Ye [facility] AUTOMATED [facility] COMPREHENSIVE METABOLIC 2019-02-10 04:04:00 Sienna Watt [facility] MAGNESIUM 2019-02-10 04:04:00 Sienna Watt [facility] PHOSPHORUS 2019-02-10 04:04:00 Sienna Watt [facility] CBC W/PLT COUNT & AUTO 2019-02-10 04:04:00 Sienna Watt [facility] Appendectomy [facility] Cataract extraction and [facility] insertion of intraocular lens [facility] ORIF - Open reduction [facility] ermann and internal fixation of fracture 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 00:00:00 (Season Ended) [code = [facility] INFLUENZA VACCINE (Season Ended)] Future Scheduled 2019-09-[address] [facility] 00:00:00 WELLNESS (YEAR 2 or Medical Center FIRST YEAR if no IPPE) [code = MEDICARE ANNUAL WELLNESS (YEAR 2 or FIRST YEAR if no IPPE)] Future Scheduled 2019-07-19 HEMOGLOBIN A1C [code = [facility] 00:[facility]00 HEMOGLOBIN A1C] Medical Cent er Future Scheduled 2017-11-07 PNEUMOCOCCAL [address] Test 00:00:00 HIGH/HIGHEST RISK (2 Medical Center of 2 - PCV13) [code = PNEUMOCOCCAL 65+ HIGH/HIGHEST RISK (2 of 2 - PCV13)] Future Scheduled [address] [facility] Test 00:00:00 SCREENING [code = Medical nt BREAST CANCER SCREENING] Future Scheduled 1950 COLON CANCER SCREENING [facility] 00:00:00 ANNUAL FOBT [code = [facility] COLON CANCER SCREENING ANNUAL FOBT] Encounters Start End Encounter Admission Attending Care Care Encounter Source Date/Time Date/Time Type Type Clinicians Facility Department ID 2019-11-21 Outpatient [facility] [address] [facility] 08:45:42 2020-01-29 2020-01-30 Outpatient Sang, [facility] [id number] 11:08:00 15:30:00 Donald I 05 2020-01-29 2020-01-29 Inpatient [facility] MED [id number] [facility] 11:08:00 07:47:00 2020-01-18 2020-01-18 Outpatient Ban, [facility] [id number] 07:17:00 11:05:00 Chao 04 [facility] 2020-01-18 2020-01-18 Outpatient [facility] [address] [facility] 07:17:00 07:17:00 2019-08-31 2019-08-31 Outpatient Ban, [facility] [id number] 07:55:00 13:25:00 Chao 02 [facility] 2019-08-31 2019-08-31 Outpatient [facility] [address] [facility] 07:55:00 07:55:00 2019-05-29 2019-05-29 Outpatient SANA Richards [facility] [id number] 16:31:20 23:40:00 Jomar Lloyd 2019-05-29 2019-05-29 Emergency E [facility]BL [facility] [id number] [facility]BL 16:31:00 16:31:00 2019-05-11 2019-05-11 [facility] [id number] 06:00:00 13:21:00 Chao 00 Petros 2019-05-11 2019-05-11 Outpatient [facility] [id number] [facility] 06:00:00 06:00:00 Results Test Description Test Time Test Comments Results Result Comments Source CHEM PANEL 2020-01-30 74 [facility] 10:19:00 CHEM PANEL 2020-01-30 12 [facility] 10:19:00 CHEM PANEL 2020-01-30 2.40 [facility] 10:19:00 CHEM PANEL 2020-01-30 138 [facility] 10:19:00 CHEM PANEL 2020-01-30 4.0 [facility] 10:19:00 CHEM PANEL 2020-01-30 105 [facility] 10:19:00 CHEM PANEL 2020-01-30 25 [facility] 10:19:00 CHEM PANEL 2020-01-30 9.0 [facility] 10:19:00 CHEM PANEL 2020-01-30 12.0 [facility] 10:19:00 CHEM PANEL 2020-01-30 20 [facility] 10:19:00 HEMATOLOGY 2020-01-30 10:19:00 Test Item Value Reference Range Interpretation Comme nts PT (test code = PT) 13.1 s 12.0-14.7 [facility] PranatkWQZHLLGEGC2547-15-03 10:19:00 Test Item Value Reference Range Interpretation Comments INR (test code = INR) 0.99 1 0.85-1.17 [facility] VztgqljQSZDHWGUKP1985-90-31 10:19:00 Test Item Value Reference Range Interpretation Comments PTT (test code = PTT) 30.1 s 22.9-35.8 [facility] XywifofDZTFDDYWOZ6964-95-76 10:19:005.6[facility]ann[facility] 2020-01-30 10:19:003.02[facility] BnniwhoQPJMRLXUDK5871-03-94 10:19:0010.2[facility] UsvpeeyXXTJZJUCHZ0004-99-68 10:19:0030.5[facility] HzafqaxHAGWPYYCET2436-76-61 10:19:77473.2[facility] RuoxkqyERCBDCCRID0690-75-11 10:19:00 Test Item Value Reference Range Interpretation Comments MCH (test code = MCH) 33.9 pg 27.0-31.0 [facility] EvnjqolFMLUNBVGEM1167-38-59 10:19:0033.5[facility] Hermann[facility]MATOLOGY 2020-01-30 10:19:0017.1[facility] JneukflSUPZWALYZE8053-20-48 10:19:68230Lwygcpxu ZibyoszMMQXDMXDOP8648-19-15 10:19:008.1[facility] BuojrcyPPPONFBRMD4751-84-76 10:19:0072.4[facility] XdgroemJOTNLLUJPP8427-02-40 10:19:0013.3[facility] PGCPCNIAFI4202-43-63 10:19:0010.3[facility] OpxrbcsJKXNGZPUHU5604-26-44 10:19:00 3.5[facility] DdfpqypDSJWEPOTEF7864-39-72 10:19:000.5[facility]ann[facility]MATOLOGY 2020-01-30 10:19:004.1[facility] HlpulbtNBKMXZJCFW2122-85-51 10:19:000.7[facility] UimmqwtGFGJKZFYMV6192-28-72 10:19:000.6[facility] BvpzhjxNVMRUGTGFI4266-70-33 10:19:000.2[facility] CelwnpwKCYIMFZZBC7168-58-20 18:09:00Negative *NA*(01/29/20 1:09 PM)[facility] LemjyjrKGLTBLYYWV5396-85-43 18:09:00Negative *NA*(01/29/20 1:09 PM)[facility] EZGCNHE9697-70-09 13:57:00Negative (01/29/20 8:57 AM)[facility]annCHEM JBGRG7288-25-65 13:38:009[facility] HermannCHEM PANEL 2020-01-29 13:38:61999Mffrmedx HermannCHEM CVZZH8897-48-04 13:38:003.9[facility] HermannCHEM UCELT2158-58-81 13:38:05051Ztfgqotk HermannCHEM GJBTO9357-18-81 13:38:0027[facility] HermannCHEM AUSFB2878-37-09 13:38:0021[facility] HermannCHEM KDDEL7745-23-21 13:38:004.4[facility]annCHEM SMZGO8169-46-64 13:38:95770 [facility]ann[facility] YUQHV4562-71-06 13:38:001.33[facility] HermannCHEM PANEL 2020-01-29 13:38:0010.2[facility]annCHEM GRDGX9265-98-02 13:38:0030.0[facility] HermannCHEM OCQVD9086-78-72 13:38:0015.0[facility]annCHEM LYDXM8094-97-61 13:38:00See Note *NA*(01/29/20 8:38 AM)[facility] PcsztcmUSRMSOQIJZEI6358-35-47 12:42:73885Ixkgiqna GxqndolADKMKETDMPAH4981-03-46 12:42:003.7[facility] TYFWDEELQAGK6315-19-44 12:42:32513Grmunazy GbkwbtrFTYSNYYPTCXU6618-15-07 12:42:0027[facility] PebafpcKJXVPLYPVTJQ0929-67-77 12:42:0014[facility] QJDBFOVHMFBY4940-35-13 12:42:002.5[facility] UjdnwqfNHDIQTLSYQPV1912-93-44 12:42:0076[facility] EhlgtbkTBQSDYZDRJMV6656-52-02 12:42:001.31[facility] GHFERUHXWQNQ6994-96-78 12:42:0010.9[facility] AndigxpVIZDEFBIQMVR5997-60-32 12:42:0032.0[facility] KmuckpbJDDTGCONSLTV4241-69-07 12:42:0016.0[facility] LHPRDUNJJUFC4719-56-52 12:42:0019[facility] RndtbflBDIWWYIQHORI0671-09-50 12:42:00 See Note *NA*(01/18/20 7:42 AM)[facility] UdgrfiaWYZXHNVTUL9070-76-67 16:54:00Not Detected (01/16/20 11:54 AM)[facility] GqqhxttWVYGWWOIERMC2312-70-17 22:19:0011.0 [facility] XkrjfjyKCOJOWKABPLN0136-20-63 22:19:61752Zyscfoip HermannELECTROLYTES 2019-05-29 22:19:0027[facility] MoacxacGVINESIUDKZP6949-70-59 22:19:002.44[facility] GinakzqCATNEWBPUMXB3077-91-42 22:19:69120Egxmhfot KtuvrjvRDVQAKRIVRGH0956-03-94 22:19:004.0[facility] SsmlybqOVBPYARJFCSK0924-86-27 22:19:34543Tarmepnn [facility] UCTAYWEDYZJA1259-55-57 22:19:0028[facility] OflorpcYBLVHIANWIIF8100-35-17 22:19:00 8.6[facility] HlpjfhkHPHPZQSCHKCO9577-11-50 22:19:0022[facility] HermannHEMATOLOGY 2019-05-29 22:19:007.7[facility] ZvctjdsOXPBWFHNUE6034-93-99 22:19:002.84[facility] LotluaySOFDQSBZSN4805-43-26 22:19:009.1[facility] NxzzksfUCGEJZQGCW4962-93-30 22:19:0027.0[facility] RpqdqrqHIAYJJDXQR4290-89-49 22:19:0095.1[facility] UPPXWJENYQ1716-56-55 22:19:00 Test Item Value Reference Range Interpretation Comments MCH (test code = MCH) 32.2 pg 27.0-31.0 [facility] CozjaznFTNWZUOPZF6781-20-99 22:19:0033.8[facility] HermannHEMATOLOGY 2019-05-29 22:19:0017.8[facility] NwxckzxKZZWDGWKNO2468-11-61 22:19:30420Hulitkkl OyoktaeNYEOKJHWES0621-33-19 22:19:007.6[facility] XjspvijQZFVPMXLZY8469-42-28 22:19:00 Test Item Value Reference Range Interpretation Comments PT (test code = PT) 13.0 s 12.0-14.7 [facility] JkqwgljIRZOTWAETY7184-03-33 22:19:00 Test Item Value Reference Range Interpretation Comments INR (test code = INR) 1.00 1 0.85-1.17 [facility] OsipiuvQSTSAVMOWA7302-66-89 22:19:00 Test Item Value Reference Range Interpretation Comments PTT (test code = PTT) 36.9 s 22.9-35.8 [facility] ZtefeqoLYBZRXKODI9886-95-54 22:19:0071.9[facility] HermannHEMATOLOGY 2019-05-29 22:19:009.3[facility] GajawoeDVIZFOVPFN4633-69-86 22:19:0010.4[facility] LjnsxriNZMYXEJECY6112-20-43 22:19:007.6[facility] RdunjwsETGLMXYXVC8446-48-47 22:19:000.8[facility] OpzgnrnHYTQVXJGJG2008-22-66 22:19:005.5[facility] GZYZHLDTLY1635-64-04 22:19:000.7[facility] WfapiiaQQMSNBOHAJ8012-07-24 22:19:000.8 [facility] YrdpldfIFYNTDHBNO6168-80-78 22:19:000.6[facility] HermannHEMATOLOGY 2019-05-29 22:19:000.1[facility] PngqfpqCDQSKJNWFGDJ4018-09-21 11:43:77491Lwowjpju MbcdykeMOLOQSMPBBIK2393-53-66 11:43:004.4[facility] TxhodfkYSCKOIAHQCID6078-53-33 11:43:56515Dzrjtwgn OjfeyofHJNLWAMBPESL6175-20-47 11:43:0027[facility] MMQZIXCABSLR0409-04-35 11:43:0027[facility] HmrstxpPXSFTWIIOUCB8906-81-15 11:43:00 2.9[facility] RigbgawLAJJZBAFLEEI6858-96-50 11:43:99053Prsuilpi [place] AFYRSTVITRZF2935-89-01 11:43:001.30[facility] EslsfyqFHRXSAUAEPZE2664-74-61 11:43:0010.2[facility] LhnctizFGZRJEDKDHVQ7418-26-03 11:43:0030.0[facility] FSGYHONTDGCG0870-95-93 11:43:0014.0[facility] QqmxsxdRJNTWCQEJKJX4096-94-36 11:43:0018[facility] HermannCHEM XWYGM3578-10-39 11:38:23528Kdjlfbfo HermannCHEM AMGUU0074-22-34 11:38:0029[facility] HermannCHEM IBDEY0888-77-08 11:38:002.80 [facility] HermannCHEM RLNQU7664-56-45 11:38:56114Bcdhlfkn HermannCHEM PANEL 2019-05-11 11:38:004.3[facility] HermannCHEM TQTKZ5277-63-25 11:38:73112Yvjzklft HermannCHEM AUOJK6657-04-68 11:38:0028[facility] HermannCHEM FJOOP4753-74-19 11:38:009.9[facility] HermannCHEM KKZPK2936-44-19 11:38:0019[facility] HermannCHEM DBXWR7727-33-80 11:38:0013.3[facility] UcehadsJQHIAPQDKJ5859-89-10 11:38:0072.7 [facility] AwjbwxfSRRELYIQDZ5862-95-80 11:38:0010.4[facility] HermannHEMATOLOGY 2019-05-11 11:38:009.1[facility] GyquinhZVFVZMRECN8734-14-32 11:38:007.3[facility] RzprlmxTIMYYOFVGA6586-52-37 11:38:000.5[facility] TuxsngkEJKMWKJKJW6716-11-07 11:38:004.5[facility] KjljjrvOMFSIWDPCA1161-69-75 11:38:000.6[facility] SZBGLMMEXP3125-11-29 11:38:000.6[facility] QzhtrjoPUZEFECCNC5400-87-79 11:38:000.5 [facility] HuifwmqCNSDUDTDOR1732-74-99 11:38:006.2[facility] HermannHEMATOLOGY 2019-05-11 11:38:003.03[facility] OawmgdfLUPYWKMMDP9522-01-57 11:38:009.5[facility] AblvgynLNVHTQJOOK7575-74-35 11:38:0029.8[facility] BqmudjzRXNQEQHJHX2867-74-44 11:38:0098.2[facility] GvrqmndLJHRHUZAFC8974-52-18 11:38:00 Test Item Value Reference Range Interpretation Comments MCH (test code = MCH) 31.4 pg 27.0-31.0 [facility]ECQROUVW5225-68-84 11:38:0032.0[facility] 2019-[facility]-11 11:38:0017.2[facility] CenterWnrsjikPEJZMWXXCA3723-42-36 11:38:24659[place] NspdlysIFETSRVMVA8925-60-10 11:38:008.3[facility] CenterGxybamjYWXFXMYMET9533-72-85 11:38:00 Test Item Value Reference Range Interpretation Comments INR (test code = INR) 1.03 1 0.85-1.17 [facility]SdibzzoSUBKUUPNXJ6193-34-44 11:38:00 Test Item Value Reference Range Interpretation Comments PT (test code = PT) 13.3 s 12.0-14.7 [facility]vahzlhSDDJYLYIIN2341-98-23 11:38:00 Test Item Value Reference Range Interpretation Comments PTT (test code = PTT) 35.0 s 22.9-35.8 [facility] culture + cwagp4858-68-19 13:51:00 Test Item Value Reference Range Interpretation Comments Result (test code = No acid-fast bacilli 6463-4) isolated in 42 days AFB Smear (test code = No acid fast bacilli 56506-5) seen [facility] + [id number] 13:51:00 Test Item Value Reference Range Interpretation Comments CULTURE (BEAKER) (test No acid-fast bacilli code = 1095) isolated in 42 days AFB SMEAR (BEAKER) No acid fast bacilli (test code = 994) seen Fungus culture + [id number] 09:38:00 Test Item Value Reference Range Interpretation Comments Result (test code = No fungus isolated in 6463-4) 28 days Fungus Smear (test No fungi seen code = 1406) [facility] + [id number] 09:38:00 Test Item Value Reference Range Interpretation Comments CULTURE (BEAKER) (test No fungus isolated in code = 1095) 28 days FUNGUS SMEAR (BEAKER) No fungi seen (test code = 1406) SURGICALLY OBTAINED CULTURE + GRAM [id number] 10:25:00 Test Item Value Reference Interpretation Comments [...] No organisms seen (BEAKER) (test code = 797762) Anaerobic [id number] 02:58:00 Test Item Value Reference Range Interpretation Comments Result (test code = No anaerobes isolated 6463-4) [facility] CenterANAEROBIC [id number] 02:58:00 Test Item Value Reference Range Interpretation Comments CULTURE (BEAKER) (test No anaerobes isolated code = 1095) Hemoglobin and [id number] 10:32:00 Test Item Value Reference Range Interpretation Comments Hemoglobin (test code = 786-4) 7.6 11.2- 15.7 GM/DL L Hematocrit (test code = 4544-3) 24.9 % 34.1-44.9 L Lab Interpretation (test code = Abnormal 60117-7) [facility] CenterHEMOGLOBIN AND [id number] 10:32:00 Test Item Value Reference Range Interpretation Comments HEMOGLOBIN (BEAKER) (test code = 7.6 GM/DL 11.2-15.7 L 410) HEMATOCRIT (BEAKER) (test code = 24.9 % 34.1-44.9 L 411) Basic metabolic [id number] 06:01:00 Test Item Value Reference Range Interpretation Comments Sodium (test code = 139 meq/L 833-909 0767-2) Potassium (test code = 4.9 meq/L 3.5-5.1 2823-3) Chloride (test code = 106 meq/L 98-107 2075-0) CO2 (test code = 29 meq/L 22-29 2028-9) BUN (test code = 22 mg/dL 7-21 H 3094-0) Creatinine (test code = 2.59 mg/dL 0.57-1.25 H 2160-0) Glucose (test code = 94 mg/dL 70-105 2345-7) Calcium (test code = 8.8 mg/dL 8.4-10.2 61674-2) EGFR (test code = 22 mL/min/1.73 [place] [address]-1) NOT ACCURATE CREATININE CLEARANCE IN PREDICTING GLOMERULAR FILTRATION RATE . ESTIMATED GFR I S NOT APPLICABLE FOR DIALYSIS PATIEN TS. Lab Interpretation Abnormal (test code = 82170-2) [facility] CenterBASIC METABOLIC [id number] 06:01:00 Test Item Value Reference Range Interpretation [...] PATIEN TS. RAD, PELVIS, 1 OR 2 [id number] 11:58:00Reason for exam:->follow up for pelvis ORIFFINAL [...] pelvic surgical drain in place. Signed: Carlee Lindoeport Verified Date/Time: 03/01/2019 11:58:06 Reading Location: [facility] ReadingRoom XR pelvis 1 or 2 [id number] 11:58:00Interface, External Ris In - 03/01/2019 12:00 PM CDTFINAL REPORT CLINICAL HISTORY: follow up for pelvis ORIF TECHNIQUE: AP pelvis COMPARISON: Abdominal CT 02/10/2019 IMPRESSION: Left pelvic sidewall plate and screw fixation is again seen. An acute fracture line is not definitivelyseen, although generalized osteopenia and overlying bowel gas may obscure subtle fractures. Soft tissue fullness along the left pelvic sidewall is compatible with a hematoma seen on the CT. There is a pelvic surgical drain in place. Signed: Carlee Lindoort Verified Date/Time: 03/01/2019 11:58:06 Reading Location: [facility] Radiology Reading Room [facility] Center[facility] [id number] 11:09:00 Test Item Value Reference Range Interpretation Comments Concentration charged (test code = Done 2657) [facility] [id number] 11:09:00 Test Item Value Reference Range Interpretation Comments CONCENTRATION CHARGED (BEAKER) (test Done code = 2657) BASIC METABOLIC [id number] 07:44:00 Test Item Value Reference Range Interpretation [...] S NOT APPLICABLE FOR DIALYSIS PATIEN TS. Hepatitis B surface [id number] 07:29:00 Test Item Value Reference Range Interpretation Comments HBsAg Screen (test code = 5195-3) Nonreactive Nonreactive Lab Interpretation (test code = Normal 95849-0) [facility] CenterHEPATITIS [facility] SURFACE [id number] 07:29:00 Test Item Value Reference Range Interpretation Comments HEPATITIS B SURFACE ANTIGEN (2) Nonreactive Nonreactive (BEAKER) (test code = 2585) CBC with platelet count + automated [id number] 07:03:00 Test Item Value Reference Range Interpretation Comments WBC (test code = 6690-2) 7.4 3.5- 10.5 K/L RBC (test code = 789-8) 2.74 3.93- 5.22 M/L L MCHC (test code = 786-4) 31.1 32.2- 35.5 GM/DL L Hematocrit (test code = 4544-3) 27.0 % 34.1-44.9 L MCV (test code = 787-2) 98.5 fL 79.4-94.8 H MCH (test code = 785-6) 30.7 pg 25.6-32.2 RDW (test code = 788-0) 16.6 % 11.7-14.4 H Platelets (test code = 777-3) 214 150- 450 K/CU MM MPV (test code = 96316-5) 10.7 fL 9.4-12.3 nRBC (test code = 413) 0 0- 0 /100 WBC % Neutros (test code = 429) 75 % % Lymphs (test code = 430) 11 % % Monos (test code = 431) 9 % % Eos (test code = 432) 5 % % Baso (test code = 437) 1 % # Neutros (test code = 670) 5.56 1.56- 6.13 K/L # Lymphs (test code = 414) 0.83 1.18- 3.74 K/L L # Monos (test code = 415) 0.63 0.24- 0.36 K/L H # Eos (test code = 416) 0.35 0.04- 0.36 K/L # Baso (test code = 417) 0.04 0.01- 0.08 K/L Immature Granulocytes-Relative 0 % 0-1 (test code = 2801) Lab Interpretation (test code = Abnormal 56881-8) [facility] W/PLT COUNT & AUTO [id number] 07:03:00 Test Item Value Reference Range Interpretation [...] (BEAKER) (test code = 2801) BASIC METABOLIC [id number] 05:20:00 Test Item Value Reference Range Interpretation [...] APPLICABLE FOR DIALYSIS PATIEN TS. BASIC METABOLIC [id number] 00:03:00 Test Item Value Reference Range Interpretation [...] PATIEN TS. CBC W/PLT COUNT & AUTO [id number] 23:21:00 Test Item Value Reference Range Interpretation [...] 0-1 PERCENT (BEAKER) (test code = 2801) Serotonin release [id number] 12:55:00 Test Item Value Reference Range Interpretation Comments Scan Result (test code = 9123877) UFH Low Dose 0.1 IU/mL (test code = 100 % 2593) UFH High Dose 100 IU/mL (test code = 3 % 2594) UFH KRYSTIN Result (test code = 2592) Positive [facility] CenterPO-Glucose [id number] 12:09:00 Test Item Value Reference Range Interpretation Comments POC-Glucose Meter (test 91 mg/dL 70-110 TEST ED AT [facility] code = 1538) [address] [facility] 7703 0 Lab Interpretation (test Normal code = 24639-9) [facility]-GLUCOSE [id number] 12:09:00 Test Item Value Reference Range Interpretation Comments POC-GLUCOSE METER 91 mg/dL 70-110 TESTED AT [facility] 6720 (BEAKER) (test code = ILDA Mercer [facility] [address] 1538) CBC W/PLT COUNT & AUTO [id number] 05:22:00 Test Item Value Reference Range Interpretation [...] (BEAKER) (test code = 2801) BASIC METABOLIC [id number] 04:36:00 Test Item Value Reference Range Interpretation [...] S NOT APPLICABLE FOR DIALYSIS PATIEN TS. [id number] 04:34:00 Test Item Value Reference Range Interpretation Comments Magnesium (test code = 35242-3) 1.7 mg/dL 1.6-2.6 Lab Interpretation (test code = Normal 43703-4) [facility] CenterPhosphorus2019-06-12 04:34:00 Test Item Value Reference Range Interpretation Comments Phosphorus (test code = 2777-1) 3.0 mg/dL 2.3-4.7 Lab Interpretation (test code = Normal 14613-4) [facility] CenterPHOSPHORUS2019-06-12 04:34:00 Test Item Value Reference Range Interpretation Comments PHOSPHORUS (BEAKER) (test code = 3.0 mg/dL 2.3-4.7 604) [id number] 04:34:00 Test Item Value Reference Range Interpretation Comments MAGNESIUM (BEAKER) (test code = 1.7 mg/dL 1.6-2.6 627) Calcium, [id number] 04:33:00 Test Item Value Reference Range Interpretation Comments Calcium, Ion (test code = 1994-3) 1.03 mmol/L 1.12-1.27 L pH, Blood (test code = 24077-6) 7.51 Lab Interpretation (test code = Abnormal 65345-7) [facility] CenterCALCIUM, [id number] 04:33:00 Test Item Value Reference Range Interpretation Comments CALCIUM IONIZED (BEAKER) (test 1.03 mmol/L 1.12-1.27 L code = 698) PH, BLOOD (BEAKER) (test code = 7.51 1810) POCT-GLUCOSE [id number] 21:41:00 Test Item Value Reference Range Interpretation Comments POC-GLUCOSE METER 170 mg/dL 70-110 H TESTED AT [facility] 6720 ([employer]) (test code = ILDA [place] 1538) [address] POCT-GLUCOSE [id number] 18:32:00 Test Item Value Reference Range Interpretation Comments POC-GLUCOSE METER 121 mg/dL 70-110 H TESTED AT [facility] 6720 (BEAKER) (test code = [place] 1538) [address] POCT-GLUCOSE [id number] 13:17:00 Test Item Value Reference Range Interpretation Comments POC-GLUCOSE METER 138 mg/dL 70-110 H TESTED AT [facility] 6720 (BEAKER) (test code = IL[place] 1538) [address] BASIC METABOLIC [id number] 11:40:00 Test Item Value Reference Range Interpretation [...] GFR I S NOT APPLICABLE FOR DIALYSIS PATICHARLES TS. [id number] 11:39:00 Test Item Value Reference Range Interpretation Comments PHOSPHORUS (BEAKER) (test code = 2.5 mg/dL 2.3-4.7 604) [id number] 11:39:00 Test Item Value Reference Range Interpretation Comments MAGNESIUM (BEAKER) (test code = 1.6 mg/dL 1.6-2.6 627) POCT-GLUCOSE [id number] 08:55:00 Test Item Value Reference Range Interpretation Comments POC-GLUCOSE METER 80 mg/dL 70-110 TESTED AT [facility] 6720 (BEAKER) (test code = ILDA Mercer [facility] [address] 1538) CALCIUM, [id number] 06:53:00 Test Item Value Reference Range Interpretation Comments CALCIUM IONIZED (BEAKER) (test 0.98 mmol/L 1.12-1.27 L code = 698) PH, BLOOD (BEAKER) (test code = 7.64 1810) CBC W/PLT COUNT & AUTO [id number] 06:53:00 Test Item Value Reference Range Interpretation [...] 0-1 PERCENT (BEAKER) (test code = 2801) HEMODIALYSIS [id number] 21:10:00Torrie Moralez RN 02/12/2019 10:31 PMTolerated 325 ml only of fluids removed. Reports of nausea, UF stopped when it was about 920 ml. Medicated with Zofran 4 mg. IV prn. Had episode of hypotension, NS 200 ml bolus given to support blood pressure. Hypertensive post procedure, noted to be sensitive with fluids removed/given, blood pressure would suddenly dropped or goes up with fluids being removed or given. Transferred back to her room in 10 [place] in stable condition.HD duration 2.5 hours UF 0.3 L via right IJ tunneled HD catheter. Lab Results Component Value Date WBC 9.4 02/12/2019 HGB 8.2(L) 02/12/2019 HCT 26.5 (L) 02/12/2019 MCV 96.0 [...] 18 Temp: 98.5 F (36.9 C) SpO2: 100%[facility] CenterPlatelet Aggregation: Function Screen 2019-02-12 14:31:00 Test Item Value Reference Range Interpretation Comments Weak ADP (test code = 41 % 60-91 L 5992-3) Plt. Function Screen 40-49% indicates Interpretation (test moderate platelet code = 23079-4) dysfunction Pathologist: (test code Jada Freire, = 2622) (electronic signature) Platelets (test code = 111 150- 450 K/CU MM L 2656) STEVE (test code = STEVE) Platelet Function Screen results may be falsely low with platelet counts<100,000/cu mm. Lab Interpretation (test Abnormal code = 20732-4) [facility] CenterPLATELET AGGREGATION: FUNCTION [id number] 14:31:00 Test Item Value Reference Range Interpretation Comments WEAK ADP 41 % 60-91 L RESULT(BEAKER) (test code = 2135) PLATELET FUNCTION 40-49% indicates SCREEN INTERP moderate platelet ([facility]) (test code = dysfunction 2173) [id number] Jada Freire MD ([facility]) (test code = (electronic signature) 2622) PLATELET COUNT AGG 111 K/CU MM 150-450 L ([facility]) (test code = 2656) Platelet Function Screen results may be falsely low with platelet counts<100,000/cu mm.POCT-GLUCOSE [id number] 13:37:00 Test Item Value Reference Range Interpretation Comments POC-GLUCOSE METER 88 mg/dL 70-110 TESTED AT [facility] 67 ([facility]) (test code = [facility] [address] 1538) Heparin [id number] 13:18:00 Test Item Value Reference Range Interpretation Comments Heparin Ab (test code = Positive-See Negative A 3267-2) Serotonin Release Assay for Confirmation Heparin Antibody Optical 3.000 <0.400 H Density (test code = 2659) 4T Total Score (test 2 code = 2661) STEVE (test code = STEVE) Probability of HIT based on scoring system: 6-8 = High probability; 4-5 = intermediate probability; 0-3 = low probability Lab Interpretation (test Abnormal code = 66624-0) [facility] CenterHEPARIN [id number] 13:18:00 Test Item Value Reference Range Interpretation Comments HEPARIN ANTIBODY Positive-See Serotonin Negative A ([facility]) (test code = Release Assay for 646) Confirmation HEPARIN ANTIBODY OD 3.000 <0.400 H (AKER) (test code = 2659) 4T TOTAL SCORE 2 ([facility]) (test code = 2661) Probability of HIT based on scoring system: 6-8 = High probability; 4-5 = intermediate probability;0-3 = low probabilityPOCT-GLUCOSE [id number] 08:44:00 Test Item Value Reference Range Interpretation Comments POC-GLUCOSE METER 111 mg/dL 70-110 H TESTED AT [facility] 6720 ([facility]) (test code = SHAKIRASD Ruslan [place] 1538) [address] Comprehensive metabolic [id number] 06:34:00 Test Item Value Reference Range Interpretation Comments Protein, Total (test 5.7 6.0- 8.3 gm/dL L code = 2885-2) Albumin (test code = 2.4 g/dL 3.5-5 L 36171-0) Alkaline Phosphatase 115 U/L 40-150 (test code = 6768-6) Total Bilirubin (test 0.6 mg/dL 0.2-1.2 code = 1974-2) Sodium (test code = 136 meq/L 006-587 6163-2) Potassium (test code = 4.4 meq/L 3.5-5.1 2823-3) Chloride (test code = 105 meq/L 98-107 2075-0) CO2 (test code = 25 meq/L 22-29 2028-9) BUN (test code = 40 mg/dL 7-21 H 3094-0) Creatinine (test code = 3.29 mg/dL 0.57-1.25 H 2160-0) Glucose (test code = 91 mg/dL 70-105 2345-7) Calcium (test code = 8.4 mg/dL 8.4-10.2 51135-8) AST (test code = 16 U/L 5-34 1920-8) ALT (test code = 10 U/L 6-55 1742-6) EGFR (test code = 17 mL/min/1.73 [place] [address]-3) NOT ACCURATE CREATININE CLEARANCE IN PREDICTING GLOMERULAR FILTRATION RATE . ESTIMATED GFR I S NOT APPLICABLE FOR DIALYSIS PATIEN TS. Lab Interpretation Abnormal (test code = 37932-0) [facility] CenterCOMPREHENSIVE METABOLIC [id number] 06:34:00 Test Item Value Reference Range Interpretation [...] S NOT APPLICABLE FOR DIALYSIS PATIEN TS. [id number] 05:53:00 Test Item Value Reference Range Interpretation Comments PHOSPHORUS (BEAKER) (test code = 3.6 mg/dL 2.3-4.7 604) [id number] 05:53:00 Test Item Value Reference Range Interpretation Comments MAGNESIUM (BEAKER) (test code = 1.8 mg/dL 1.6-2.6 627) [id number] 05:32:00 Test Item Value Reference Range Interpretation Comments PTT (test code = 42.2 22.5- 36.0 seconds H 78292-3) STEVE (test code = STEVE) Draw baseline aPTT prior to infusion Lab Interpretation (test Abnormal code = 00582-6) [facility] CenterAPTT2019 05:32:00 Test Item Value Reference Range Interpretation [...] 0-1 PERCENT (BEAKER) (test code = 2801) Prepare Leuko-Red [id number] 23:54:00 Test Item Value Reference Range Interpretation Comments CROSSMATCH (test code = 2264) COMPATIBLE Unit ABO (test code = O Pos 6115893) UNIT NUMBER (test code = [id number] 934-0) Status (test code = 7760474) [facility] Blood Bank Product (test code RED BLOOD CELLS = 2263) PRODUCT CODE (test code = [id number] 933-2) [facility] CenterPOCT-GLUCOSE [id number] 21:21:00 Test Item Value Reference Range Interpretation Comments POC-GLUCOSE METER 168 mg/dL 70-110 H TESTED AT [facility] 6720 (BEAKER) (test code = [facility] 1538) [address] POCT-GLUCOSE [id number] 16:46:00 Test Item Value Reference Range Interpretation Comments POC-GLUCOSE METER 135 mg/dL 70-110 H TESTED AT [facility] 6720 (BEAKER) (test code = [facility] 1538) [address] POCT-GLUCOSE [id number] 12:31:00 Test Item Value Reference Range Interpretation Comments POC-GLUCOSE METER 96 mg/dL 70-110 TESTED AT [facility] 6720 (BEAKER) (test code = [facility] [address] 1538) POCT-GLUCOSE [id number] 08:23:00 Test Item Value Reference Range Interpretation Comments POC-GLUCOSE METER 97 mg/dL 70-110 TESTED AT [place] [id number] (BEAKER) (test code = [facility] [address] 1538) COMPREHENSIVE METABOLIC [id number] 06:20:00 Test Item Value Reference Range Interpretation [...] S NOT APPLICABLE FOR DIALYSIS PATIEN TS. [id number] 06:17:00 Test Item Value Reference Range Interpretation Comments PHOSPHORUS (BEAKER) (test code = 3.2 mg/dL 2.3-4.7 604) [id number] 06:17:00 Test Item Value Reference Range Interpretation Comments MAGNESIUM (BEAKER) (test code = 1.6 mg/dL 1.6-2.6 627) CBC W/PLT COUNT & AUTO [id number] 05:54:00 Test Item Value Reference Range Interpretation [...] % 0-1 PERCENT (BEAKER) (test code = 2805) BLOOD [id number] 02:01:00 Test Item Value Reference Range Interpretation Comments CULTURE (BEAKER) (test No growth in 5 days code = 1095) BLOOD [id number] 02:01:00 Test Item Value Reference Range Interpretation Comments CULTURE (BEAKER) (test No growth in 5 days code = 1095) POCT-GLUCOSE [id number] 21:21:00 Test Item Value Reference Range Interpretation Comments POC-GLUCOSE METER 151 mg/dL 70-110 H TESTED AT [facility] 6720 (BEAKER) (test code = ILDA [place] 1538) [address] POCT-GLUCOSE [id number] 17:58:00 Test Item Value Reference Range Interpretation Comments POC-GLUCOSE METER 135 mg/dL 70-110 H TESTED AT [facility] 6720 ([facility]) (test code = ILDA [place] 1538) [address] CT, [id number] 16:34:00FINAL REPORT CT scan of the abdomen [...] pancreas, and adrenal glands are unremarkable. Both [place] kidneys are atrophic in nature. The gallbladder [...] This is similar to previous.4. Atrophic appearing [place] kidneys.5. Diffuse anasarca. Bilateral pleural effusions. A verbal report wasgiven to the patient's nurse, Kael at the time of dictation. He was instructed to inform the physician. Signed: Stanietzky, Amalia MDReport Verified Date/Time: 02/10/2019 16:34:31 Reading Location: [facility] B1 C013X Ortho Consult Reading Room CT abdomen/pelvis with IV contrast 2019-02-10 16:34:00Interface, External Ris In - 02/10/2019 6:[address] scan of the abdomen and [...] reconstruction technique. FINDINGS: Bilateral small pleural effusions areseen with adjacent atelectasis or consolidation. Some groundglass opacities are seen. The liver, spleen, pancreas, and adrenal glands are unremarkable. Both [place] kidneys are atrophic in nature. The gallbladder [...] 10.5 x 2.9 cm region of high attenuationfluid adjacent to the surgical site, most likely a hematoma. Also seen is a 8.5 x 5.4 cm hematoma inthe anterior subtendinous pelvic tissues, stable from previous but with more high attenuation content, possibly related to some internal hemorrhage. Bone windows demonstrate degenerative changes. Postsurgical changes are seen in the left pelvis. IMPRESSION:1. Postoperative changes in left pelvis with interval development of fluid along the left pelvic sidewall suspicious for hematoma.2. Continued likely hematoma in the subcutis tissues of the anterior pelvis.3. Distended gallbladder, possibly related to n.p.o. state. This is similar to previous.4. Atrophic appearing [place] kidneys.5. Diffuse anasarca. Bilateral pleural effusions. A verbal report was given to the patient's nurse, Kael at the time of dictation. He was instructed to inform the physician. Signed: Amalia Trivedi MDReport Verified Date/Time: 02/10/2019 16:34:31 Reading Location: [facility] C013X Ortho Consult Reading [facility] [id number] 12:36:00Torrie Moralez RN 02/10/2019 3:09 PMProcedure and 1 unit prbc transfused tolerated well with no reaction noted. Vital signs stable.HD duration 2.5 hours UF 1 L via right IJ tunneled HD catheter.Lab Results Component Value Date WBC 8.7 02/10/2019 HGB 6.9 (L) 02/10/2019 HCT 22.1 (L) 02/10/2019 MCV 96.1 (H) 02/10/2019 PLT 92 (L) 02/10/2019 Lab Results Component Value Date GLUCOSE 91 02/10/2019 CALCIUM 8.5 02/10/2019 NA 138 02/10/2019 K 4.8 02/10/2019 CO2 26 02/10/2019 CL 106 02/10/2019 BUN 27 (H) 02/10/2019 CREATININE 2.47 (H) 02/10/2019 No components found for: HEPSAG Vitals:02/10/19 1236 BP: 169/83 Pulse: 79 Resp: 16 Temp: 98.9 F (37.2 C) SpO2: 100%[facility] CenterType and screen, [id number] 06:44:00 Test Item Value Reference Range Interpretation Comments ABO/RH AUTOMATED (BEAKER) (test O POSITIVE code = 2260) Ab Scrn (test code = 890-4) NEGATIVE [facility] CenterCOMPREHENSIVE METABOLIC [id number] 05:11:00 Test Item Value Reference Range Interpretation [...] S NOT APPLICABLE FOR DIALYSIS PATIEN TS. [id number] 05:09:00 Test Item Value Reference Range Interpretation Comments PHOSPHORUS (BEAKER) (test code = 2.9 mg/dL 2.3-4.7 604) [id number] 05:09:00 Test Item Value Reference Range Interpretation Comments MAGNESIUM (BEAKER) (test code = 1.7 mg/dL 1.6-2.6 627) CBC W/PLT COUNT & AUTO [id number] 04:30:00 Test Item Value Reference Range Interpretation [...] % 0-1 PERCENT (BEAKER) (test code = 4571) POCT-GLUCOSE [id number] 21:29:00 Test Item Value Reference Range Interpretation Comments POC-GLUCOSE METER 146 mg/dL 70-110 H TESTED AT [facility] 6720 (BEAKER) (test code = ILDA [place] 1538) [address] POCT-GLUCOSE [id number] 17:41:00 Test Item Value Reference Range Interpretation Comments POC-GLUCOSE METER 122 mg/dL 70-110 H TESTED AT [facility] 6720 (BEAKER) (test code = ILDA Mercer [place] 1538) [address] POCT-GLUCOSE [id number] 12:40:00 Test Item Value Reference Range Interpretation Comments POC-GLUCOSE METER 108 mg/dL 70-110 TESTED AT [facility] 6720 (BEAKER) (test code = [facility] [place] 1538) [address] POCT-GLUCOSE [id number] 07:13:00 Test Item Value Reference Range Interpretation Comments POC-GLUCOSE METER 92 mg/dL 70-110 TESTED AT [facility] 6720 (BEAKER) (test code = [facility] [place] [facility] [address] 1538) B-TYPE NATRIURETIC FACTOR (BNP)2019-02-09 05:36:00 Test Item Value Reference Range Interpretation Comments B-TYPE NATRIURETIC PEPTIDE 3204 pg/mL 0-100 H (BEAKER) (test code = 700) COMPREHENSIVE METABOLIC [id number] 04:57:00 Test Item Value Reference Range Interpretation [...] NOT APPLICABLE FOR DIALYSIS PATIEN TS. CALCIUM, [id number] 04:36:00 Test Item Value Reference Range Interpretation Comments CALCIUM IONIZED (BEAKER) (test 1.09 mmol/L 1.12-1.27 L code = 698) PH, BLOOD (BEAKER) (test code = 7.44 1810) [id number] 04:29:00 Test Item Value Reference Range Interpretation Comments PHOSPHORUS (BEAKER) (test code = 2.9 mg/dL 2.3-4.7 604) [id number] 04:29:00 Test Item Value Reference Range Interpretation Comments MAGNESIUM (BEAKER) (test code = 1.9 mg/dL 1.6-2.6 627) CBC W/PLT COUNT & AUTO [id number] 03:19:00 Test Item Value Reference Range Interpretation [...] PERCENT (BEAKER) (test code = 2801) POCT-GLUCOSE [id number] 21:29:00 Test Item Value Reference Range Interpretation Comments POC-GLUCOSE METER 147 mg/dL 70-110 H TESTED AT [place] [address] ([facility]) (test code = ILDA Mercer [facility] 1538) [address] POCT-GLUCOSE [id number] 13:45:00 Test Item Value Reference Range Interpretation Comments POC-GLUCOSE METER 117 mg/dL 70-110 H TESTED AT [place] [address] ([facility]) (test code = ILDA Mercer [facility] 1538) [address] POCT-GLUCOSE [id number] 07:11:00 Test Item Value Reference Range Interpretation Comments POC-GLUCOSE METER 100 mg/dL 70-110 TESTED AT [place] [address] ([facility]) (test code = ILDA Mercer [facility] 1538) [address] COMPREHENSIVE METABOLIC [id number] 05:53:00 Test Item Value Reference Range Interpretation [...] S NOT APPLICABLE FOR DIALYSIS PATIEN TS. [id number] 05:51:00 Test Item Value Reference Range Interpretation Comments PHOSPHORUS (BEAKER) (test code = 2.8 mg/dL 2.3-4.7 604) [id number] 05:51:00 Test Item Value Reference Range Interpretation Comments MAGNESIUM (BEAKER) (test code = 1.8 mg/dL 1.6-2.6 627) CBC W/PLT COUNT & AUTO [id number] 05:01:00 Test Item Value Reference Range Interpretation [...] PERCENT (BEAKER) (test code = 2801) POCT-GLUCOSE [id number] 21:31:00 Test Item Value Reference Range Interpretation Comments POC-GLUCOSE METER 115 mg/dL 70-110 H TESTED AT [facility] 6720 (BEAKER) (test code = ILDA Mercer [place] 1538) [address] HEMOGLOBIN AND [id number] 13:26:00 Test Item Value Reference Range Interpretation Comments HEMOGLOBIN (BEAKER) (test code = 8.3 GM/DL 11.2-15.7 L 410) HEMATOCRIT (BEAKER) (test code = 26.1 % 34.1-44.9 L 411) CREATININE, RANDOM [id number] 10:02:00 Test Item Value Reference Range Interpretation Comments CREATININE URINE (BEAKER) 19.0 mg/dL Qc ok in unity (test code = 375) Reference Range: No NormalsPOCT-GLUCOSE [id number] 08:47:00 Test Item Value Reference Range Interpretation Comments POC-GLUCOSE METER 125 mg/dL 70-110 H TESTED AT [facility] 6720 (BEAKER) (test code = ILDA Mercer [place] 1538) [address] COMPREHENSIVE METABOLIC [id number] 06:12:00 Test Item Value Reference Range Interpretation [...] S NOT APPLICABLE FOR DIALYSIS PATIEN TS. [id number] 05:59:00 Test Item Value Reference Range Interpretation Comments PHOSPHORUS (BEAKER) (test code = 3.1 mg/dL 2.3-4.7 604) [id number] 05:59:00 Test Item Value Reference Range Interpretation Comments MAGNESIUM (BEAKER) (test code = 2.1 mg/dL 1.6-2.6 627) CBC W/PLT COUNT & AUTO [id number] 05:43:00 Test Item Value Reference Range Interpretation [...] (BEAKER) (test code = 2801) PROTEIN, RANDOM [id number] 05:03:00 Test Item Value Reference Range Interpretation Comments PROTEIN, URINE (BEAKER) (test code 178 mg/dL 0-14 H = 1569) POCT-GLUCOSE [id number] 20:57:00 Test Item Value Reference Range Interpretation Comments POC-GLUCOSE METER 176 mg/dL 70-110 H TESTED AT [facility] 67 (BEAKER) (test code = [facility] [place] 1538) [address] HEMOGLOBIN AND [id number] 14:38:00 Test Item Value Reference Range Interpretation Comments HEMOGLOBIN (BEAKER) (test code = 7.7 GM/DL 11.2-15.7 L 410) HEMATOCRIT (BEAKER) (test code = 24.0 % 34.1-44.9 L 411) POCT-GLUCOSE [id number] 14:15:00 Test Item Value Reference Range Interpretation Comments POC-GLUCOSE METER 137 mg/dL 70-110 H TESTED AT [facility] 6720 (BEAKER) (test code = [facility] [place] 1538) [address] URINALYSIS W/ [id number] 10:27:00 Test Item Value Reference Range Interpretation [...] 516) SOURCE(BEAKER) (test code = 2795) POCT-GLUCOSE [id number] 09:22:00 Test Item Value Reference Range Interpretation Comments POC-GLUCOSE METER 167 mg/dL 70-110 H TESTED AT [facility] 6720 (BEAKER) (test code = ILDA Mercer [facility] 1538) [address] RAD, CHEST, 1 VIEW, NON [id number] 08:40:00Reason for exam:->post extubationShould this be performed [...] pulmonary edema. No fracture. Signed: Jagruti Mcarthur MDReport Verified Date/Time: 02/06/2019 08:40:46 Reading Location: [facility] Radiology Reading Room CALCIUM, [id number] 06:33:00 Test Item Value Reference Range Interpretation Comments CALCIUM IONIZED (BEAKER) (test 1.05 mmol/L 1.12-1.27 L code = 698) PH, BLOOD (BEAKER) (test code = 7.52 1810) COMPREHENSIVE METABOLIC [id number] 06:22:00 Test Item Value Reference Range Interpretation [...] S NOT APPLICABLE FOR DIALYSIS PATIEN TS. [id number] 06:16:00 Test Item Value Reference Range Interpretation Comments PHOSPHORUS (BEAKER) (test code = 2.3 mg/dL 2.3-4.7 604) [id number] 06:16:00 Test Item Value Reference Range Interpretation Comments MAGNESIUM (BEAKER) (test code = 1.6 mg/dL 1.6-2.6 627) CBC W/PLT COUNT & AUTO [id number] 05:53:00 Test Item Value Reference Range Interpretation [...] PERCENT (BEAKER) (test code = 2801) POCT-GLUCOSE [id number] 20:58:00 Test Item Value Reference Range Interpretation Comments POC-GLUCOSE METER 114 mg/dL 70-110 H TESTED AT [facility] 67 ([facility]) (test code = [facility] 1538) [address] POCT-GLUCOSE [id number] 11:44:00 Test Item Value Reference Range Interpretation Comments POC-GLUCOSE METER 160 mg/dL 70-110 H TESTED AT [place] [address] ([facility]) (test code = [facility] [place] [facility] 1538) [address] RAD, CHEST, 1 VIEW, NON [id number] 08:50:00Reason for exam:->post extubationShould this be performed [...] MDReport Verified Date/Time: 02/05/2019 08:50:57 Reading Location: [facility] Radiology Reading Room POCT-GLUCOSE [id number] 07:33:00 Test Item Value Reference Range Interpretation Comments POC-GLUCOSE METER 147 mg/dL 70-110 H TESTED AT [facility] 6720 ([facility]) (test code = [facility] [place] [facility] 1538) [address] [id number] 06:56:00 Test Item Value Reference Range Interpretation Comments PHOSPHORUS (BEAKER) (test code = 2.9 mg/dL 2.3-4.7 604) [id number] 06:56:00 Test Item Value Reference Range Interpretation Comments MAGNESIUM (BEAKER) (test code = 1.7 mg/dL 1.6-2.6 627) COMPREHENSIVE METABOLIC [id number] 06:56:00 Test Item Value Reference Range Interpretation [...] PATIEN TS. CBC W/PLT COUNT & AUTO [id number] 06:16:00 Test Item Value Reference Range Interpretation [...] 0-1 PERCENT (BEAKER) (test code = 2801) HEMOGLOBIN AND [id number] 05:56:00 Test Item Value Reference Range Interpretation Comments HEMOGLOBIN (PARAG) (test code = 8.5 GM/DL 11.2-15.7 L 410) HEMATOCRIT (PARAG) (test code = 25.4 % 34.1-44.9 L 411) Post transfusionPOCT-GLUCOSE [id number] 21:25:00 Test Item Value Reference Range Interpretation Comments POC-GLUCOSE METER 185 mg/dL 70-110 H TESTED AT [place] [address] ([facility]) (test code = ILDA Mercer [facility] 1538) [address] POCT-GLUCOSE [id number] 17:17:00 Test Item Value Reference Range Interpretation Comments POC-GLUCOSE METER 155 mg/dL 70-110 H TESTED AT [place] [address] ([facility]) (test code = ILDA Mercer [facility] 1538) [address] POCT-GLUCOSE [id number] 12:07:00 Test Item Value Reference Range Interpretation Comments POC-GLUCOSE METER 123 mg/dL 70-110 H TESTED AT [place] [address] ([facility]) (test code = ILDA Mercer [facility] 1538) [address] POCT-GLUCOSE [id number] 08:04:00 Test Item Value Reference Range Interpretation Comments POC-GLUCOSE METER 108 mg/dL 70-110 TESTED AT [place] [address] ([facility]) (test code = ILDA Mercer [facility] 1538) [address] RAD, CHEST, 1 VIEW, NON [id number] 07:45:00Reason for exam:->post extubationShould this be performed [...] and mediastinum:Stable contours. Additional findings: None. Signed: Patti Pride Verified Date/Time:02/04/2019 07:45:17 Reading Location: [address] Neuro Reading Room CBC W/PLT COUNT & AUTO [id number] 07:01:00 Test Item Value Reference Range Interpretation [...] = 2801) CBC W/PLT COUNT & AUTO [id number] 05:24:00 Test Item Value Reference Range Interpretation [...] (BEAKER) (test code = 2801) COMPREHENSIVE METABOLIC [id number] 05:11:00 Test Item Value Reference Range Interpretation [...] S NOT APPLICABLE FOR DIALYSIS PATIEN TS. [id number] 05:08:00 Test Item Value Reference Range Interpretation Comments PHOSPHORUS (BEAKER) (test code = 2.4 mg/dL 2.3-4.7 604) [id number] 05:08:00 Test Item Value Reference Range Interpretation Comments MAGNESIUM (BEAKER) (test code = 1.7 mg/dL 1.6-2.6 627) POCT-GLUCOSE [id number] 21:25:00 Test Item Value Reference Range Interpretation Comments POC-GLUCOSE METER 248 mg/dL 70-110 H TESTED AT [facility] 67 (BEAKER) (test code = ILDA Mercer [place] 1538) [address] POCT-GLUCOSE [id number] 11:33:00 Test Item Value Reference Range Interpretation Comments POC-GLUCOSE METER 168 mg/dL 70-110 H TESTED AT [facility] 67 (BEAKER) (test code = ILDA Mercer [place] 1538) [address] CBC W/PLT COUNT & AUTO [id number] 09:20:00 Test Item Value Reference Range Interpretation [...] (BEAKER) (test code = 700) COMPREHENSIVE METABOLIC [id number] 07:31:00 Test Item Value Reference Range Interpretation [...] PATIEN TS. RAD, CHEST, 1 VIEW, NON [id number] 07:31:00Reason for exam:->post extubationShould this be performed [...] MDReport Verified Date/Time: 02/03/2019 07:31:20 Reading Location: [facility] [id number] Body Reading Room [id number] 07:29:00 Test Item Value Reference Range Interpretation Comments PHOSPHORUS (BEAKER) (test code = 3.5 mg/dL 2.3-4.7 604) [id number] 07:29:00 Test Item Value Reference Range Interpretation Comments MAGNESIUM (BEAKER) (test code = 2.1 mg/dL 1.6-2.6 627) CBC W/PLT COUNT & AUTO [id number] 06:50:00 Test Item Value Reference Range Interpretation [...] PERCENT (BEAKER) (test code = 2801) CALCIUM, [id number] 06:30:00 Test Item Value Reference Range Interpretation Comments CALCIUM IONIZED (BEAKER) (test 1.19 mmol/L 1.12-1.27 code = 698) PH, BLOOD ([facility]) (test code = 7.36 1810) POCT-GLUCOSE [id number] 21:28:00 Test Item Value Reference Range Interpretation Comments POC-GLUCOSE METER 149 mg/dL 70-110 H TESTED AT [facility] 6720 ([facility]) (test code = ILDA Mercer [facility] 1538) [address] POCT-GLUCOSE [id number] 12:40:00 Test Item Value Reference Range Interpretation Comments POC-GLUCOSE METER 171 mg/dL 70-110 H TESTED AT [facility] 6720 ([facility]) (test code = ILDA Mercer [facility] 1538) 112[address] POCT-GLUCOSE [id number] 09:54:00 Test Item Value Reference Range Interpretation Comments POC-GLUCOSE METER 148 mg/dL 70-110 H TESTED AT [facility] 6720 ([facility]) (test code = ILDA Mercer [facility] 1538) [address] RAD, CHEST, 1 VIEW, NON [id number] 08:14:00Reason for exam:->post extubationShould this be performed [...] MDReport Verified Date/Time: 02/02/2019 08:14:25 Reading Location: [facility] Radiology Reading Room Electronically signed by: JULIO Davidson 02/02/2019 08:14 AMCOMPREHENSIVE METABOLIC [id number] 06:59:00 Test Item Value Reference Range Interpretation Comments TOTAL PROTEIN 5.6 gm/dL 6.0-8.3 L ([facility]) (test code = 770) ALBUMIN ([facility]) 2.3 g/dL 3.5-5.0 L (test code = [...] PATIEN TS. CBC W/PLT COUNT & AUTO [id number] 06:50:00 Test Item Value Reference Range Interpretation [...] 0-1 PERCENT (BEAKER) (test code = 2801) [id number] 06:49:00 Test Item Value Reference Range Interpretation Comments PHOSPHORUS (BEAKER) (test code = 3.0 mg/dL 2.3-4.7 604) [id number] 06:49:00 Test Item Value Reference Range Interpretation Comments MAGNESIUM (BEAKER) (test code = 1.6 mg/dL 1.6-2.6 627) CALCIUM, [id number] 06:34:00 Test Item Value Reference Range Interpretation Comments CALCIUM IONIZED (BEAKER) (test 1.11 mmol/L 1.12-1.27 L code = 698) PH, BLOOD ([facility]) (test code = 7.43 1810) CALCIUM, [id number] 06:33:00 Test Item Value Reference Range Interpretation Comments CALCIUM IONIZED (AKER) (test 1.10 mmol/L 1.12-1.27 L code = 698) PH, BLOOD ([facility]) (test code = 7.42 1810) POCT-GLUCOSE [id number] 21:12:00 Test Item Value Reference Range Interpretation Comments POC-GLUCOSE METER 190 mg/dL 70-110 H TESTED AT [place] [address] ([facility]) (test code = [facility] [place] [facility] 1538) [address] POCT-GLUCOSE [id number] 17:34:00 Test Item Value Reference Range Interpretation Comments POC-GLUCOSE METER 108 mg/dL 70-110 TESTED AT [place] [address] ([facility]) (test code = [facility] [place] [facility] 1538) [address] POCT-GLUCOSE [id number] 12:20:00 Test Item Value Reference Range Interpretation Comments POC-GLUCOSE METER 113 mg/dL 70-110 H TESTED AT [place] [address] ([facility]) (test code = [facility] 1538) [address] POCT-GLUCOSE [id number] 10:24:00 Test Item Value Reference Range Interpretation Comments POC-GLUCOSE METER 139 mg/dL 70-110 H TESTED AT [place] [address] ([facility]) (test code = [facility] [place] [facility] 1538) [address] CBC W/PLT COUNT & AUTO [id number] 10:11:00 Test Item Value Reference Range Interpretation Comments WHITE BLOOD CELL COUNT (AKER) 14.7 K/ L 3.5-10.5 H (test code = 775) RED BLOOD CELL COUNT (AKER) 2.54 M/ L 3.93-5.22 L (test code = 761) HEMOGLOBIN (BEAKER) (test code = 7.3 GM/DL 11.2-15.7 L 410) HEMATOCRIT (AKER) (test code = 23.7 % 34.1-44.9 L 411) MEAN CORPUSCULAR VOLUME ([facility]) 93.3 fL 79.4-94.8 (test code = 753) [...] = 2801) RAD, CHEST, 1 VIEW, NON [id number] 08:14:00Reason for exam:->post extubationShould this be performed [...] Robert MDReportVerified Date/Time: 02/01/2019 08:14:17 Reading Location: [facility] Radiology Reading Room POCT-GLUCOSE [id number] 07:27:00 Test Item Value Reference Range Interpretation Comments POC-GLUCOSE METER 129 mg/dL 70-110 H TESTED AT [place] [address] ([facility]) (test code = ILDA Mercer [facility] 1538) [address] POCT-GLUCOSE [id number] 21:16:00 Test Item Value Reference Range Interpretation Comments POC-GLUCOSE METER 247 mg/dL 70-110 H TESTED AT [place] [address] ([facility]) (test code = [facility] [place] [facility] 1538) [address] RAD, CHEST, 1 VIEW, NON [id number] 07:38:00Reason for exam:->post extubationShould this be performed [...] MDReport Verified Date/Time: 01/31/2019 07:38:40 Reading Location: [facility] Radiology Reading Room CALCIUM, [id number] 06:46:00 Test Item Value Reference Range Interpretation Comments CALCIUM IONIZED (BEAKER) (test 0.98 mmol/L 1.12-1.27 L code = 698) PH, BLOOD ([facility]) (test code = 7.55 1810) COMPREHENSIVE METABOLIC [id number] 05:31:00 Test Item Value Reference Range Interpretation Comments TOTAL PROTEIN 5.6 gm/dL 6.0-8.3 L (BEAKER) (test code = 770) ALBUMIN (AKER) 2.4 g/dL 3.5-5.0 L (test code = [...] S NOT APPLICABLE FOR DIALYSIS PATIEN TS. [id number] 05:30:00 Test Item Value Reference Range Interpretation Comments PHOSPHORUS (BEAKER) (test code = 2.9 mg/dL 2.3-4.7 604) [id number] 05:30:00 Test Item Value Reference Range Interpretation Comments MAGNESIUM (BEAKER) (test code = 1.6 mg/dL 1.6-2.6 627) CBC W/PLT COUNT & AUTO [id number] 05:23:00 Test Item Value Reference Range Interpretation [...] H PERCENT (BEAKER) (test code = 2801) POCT-GLUCOSE [id number] 21:52:00 Test Item Value Reference Range Interpretation Comments POC-GLUCOSE METER 146 mg/dL 70-110 H TESTED AT [facility] 6720 (BEAKER) (test code = ILDA Mercer [facility] 1538) [address] POCT-GLUCOSE [id number] 18:13:00 Test Item Value Reference Range Interpretation Comments POC-GLUCOSE METER 168 mg/dL 70-110 H TESTED AT [facility] 6720 (PARAG) (test code = ILDA [place] 1538) [address] RAD, CHEST, 1 VIEW, NON [id number] 07:08:00Reason for exam:->post extubationShould this be performed [...] MDReport Verified Date/Time: 01/30/2019 07:08:13 Reading Location: [facility] Radiology Reading Room [id number] 05:34:00 Test Item Value Reference Range Interpretation Comments FERRITIN (BEAKER) (test code = 361) 606 ng/mL 5-275 H CALCIUM, [id number] 05:26:00 Test Item Value Reference Range Interpretation [...] 20-55 (test code = 2590) COMPREHENSIVE METABOLIC [id number] 05:09:00 Test Item Value Reference Range Interpretation [...] S NOT APPLICABLE FOR DIALYSIS PATIEN TS. [id number] 05:07:00 Test Item Value Reference Range Interpretation Comments PHOSPHORUS (BEAKER) (test code = 4.6 mg/dL 2.3-4.7 604) [id number] 05:07:00 Test Item Value Reference Range Interpretation Comments MAGNESIUM (BEAKER) (test code = 1.7 mg/dL 1.6-2.6 627) CBC W/PLT COUNT & AUTO [id number] 04:57:00 Test Item Value Reference Range Interpretation [...] H PERCENT (BEAKER) (test code = 2801) RETICULOCYTE [id number] 04:39:00 Test Item Value Reference Range Interpretation Comments RETICULOCYTE COUNT PCT ([facility]) (test 1.2 % 0.5-1.7 code = 575) POCT-GLUCOSE [id number] 21:32:00 Test Item Value Reference Range Interpretation Comments POC-GLUCOSE METER 164 mg/dL 70-110 H TESTED AT [place] [address] ([facility]) (test code = ILDA Mercer [place] 1538) [address] POCT-GLUCOSE [id number] 17:52:00 Test Item Value Reference Range Interpretation Comments POC-GLUCOSE METER 130 mg/dL 70-110 H TESTED AT [place] [address] ([facility]) (test code = ILDA Mercer [place] 1538) [address] POCT-GLUCOSE [id number] 13:09:00 Test Item Value Reference Range Interpretation Comments POC-GLUCOSE METER 126 mg/dL 70-110 H TESTED AT [place] [address] ([facility]) (test code = ILDA Mercer [facility] 1538) [address] RAD, CHEST, 1 VIEW, NON [id number] 08:07:00Reason for exam:->post extubationShould this be performed at the bedside?->YesFINAL REPORT INDICATION: post extubation COMPARISON:January 28 TECHNIQUE: Chest ra diograph, single view, portable technique. FINDINGS / IMPRESSION: Lungs are clear and heart shadow normal in size. No pneumothorax or pleural effusion demonstrated. Double lumen right internal jugular line terminates in the low SVC. Signed: Sandro Rhoades MDReport Verified Date/Time: 01/29/2019 08:07:52 Reading Location: [facility] C013Y CT Body Reading Room POCT-GLUCOSE [id number] 08:03:00 Test Item Value Reference Range Interpretation Comments POC-GLUCOSE METER 104 mg/dL 70-110 TESTED AT [place] [address] ([facility]) (test code = ILDA Mercer [facility] 1538) [address]651 BLOOD [id number] 08:01:00 Test Item Value Reference Range Interpretation Comments CULTURE ([facility]) (test No growth in 5 days code = 1095) BLOOD [id number] 08:01:00 Test Item Value Reference Range Interpretation Comments CULTURE (BEAKER) (test No growth in 5 days code = 1095) [id number] 06:15:00 Test Item Value Reference Range Interpretation Comments PHOSPHORUS (BEAKER) (test code = 4.2 mg/dL 2.3-4.7 604) [id number] 06:15:00 Test Item Value Reference Range Interpretation Comments MAGNESIUM (BEAKER) (test code = 1.5 mg/dL 1.6-2.6 L 627) COMPREHENSIVE METABOLIC [id number] 06:15:00 Test Item Value Reference Range Interpretation [...] PATIEN TS. CBC W/PLT COUNT & AUTO [id number] 05:44:00 Test Item Value Reference Range Interpretation [...] IMMATURE GRANULOCYTES-RELATIVE 2 % 0-1 H PERCENT ([facility]) (test code = 2801) POCT-GLUCOSE [id number] 21:16:00 Test Item Value Reference Range Interpretation Comments POC-GLUCOSE METER 160 mg/dL 70-110 H TESTED AT [place] [address] ([facility]) (test code = ILDA Mercer [facility] 1538) [address] POCT-GLUCOSE [id number] 18:18:00 Test Item Value Reference Range Interpretation Comments POC-GLUCOSE METER 195 mg/dL 70-110 H TESTED AT [place] [address] ([facility]) (test code = ILDA Mercer [facility] 1538) [address] POCT-GLUCOSE [id number] 16:47:00 Test Item Value Reference Range Interpretation Comments POC-GLUCOSE METER 131 mg/dL 70-110 H TESTED AT [place] [address] ([facility]) (test code = ILDA Mercer [facility] 1538) [address]73 POCT-GLUCOSE [id number] 12:49:00 Test Item Value Reference Range Interpretation Comments POC-GLUCOSE METER 114 mg/dL 70-110 H TESTED AT [place] [address] ([facility]) (test code = ILDA Mercer [facility] 1538) 0[address]99 POCT-GLUCOSE [id number] 07:56:00 Test Item Value Reference Range Interpretation Comments POC-GLUCOSE METER 113 mg/dL 70-110 H TESTED AT [place] [address] ([facility]) (test code = ILDA Mercer [facility] 1538) [address] RAD, CHEST, 1 VIEW, NON [id number] 07:24:00Reason for exam:->post extubationShould this be performed [...] JR Mercado Robert MDReport Verified Date/Time: 01/28/2019 07:24:41 Reading Location: [facility] C013V Neuro Reading Room COMPREHENSIVE METABOLIC PANEL 2019-01-28 05:44:00 Test Item Value Reference Range Interpretation [...] S NOT APPLICABLE FOR DIALYSIS PATIEN TS. [id number] 05:42:00 Test Item Value Reference Range Interpretation Comments PHOSPHORUS (BEAKER) (test code = 4.2 mg/dL 2.3-4.7 604) [id number] 05:42:00 Test Item Value Reference Range Interpretation Comments MAGNESIUM (BEAKER) (test code = 1.6 mg/dL 1.6-2.6 627) CBC W/PLT COUNT & AUTO [id number] 05:12:00 Test Item Value Reference Range Interpretation [...] (test code = 416) BASOPHILS ABSOLUTE COUNT ([facility]) 0.05 K/ L 0.01-0.08 (test code = 417) IMMATURE GRANULOCYTES-RELATIVE 1 % 0-1 PERCENT ([facility]) (test code = 2801) POCT-GLUCOSE [id number] 21:58:00 Test Item Value Reference Range Interpretation Comments POC-GLUCOSE METER 200 mg/dL 70-110 H TESTED AT [facility] 6720 ([facility]) (test code = ILDA Mercer [facility] 1538) [id number] POCT-GLUCOSE [id number] 19:08:00 Test Item Value Reference Range Interpretation Comments POC-GLUCOSE METER 155 mg/dL 70-110 H TESTED AT [facility] 67[facility] ([facility]) (test [facility] = [facility] Ruslan [facility] 1538) [id number] POCT-GLUCOSE [id number] 08:16:00 Test Item Value Reference Range Interpretation Comments POC-GLUCOSE METER 85 mg/dL 70-110 TESTED AT [facility] 67[facility] ([facility]) (test code = [facility] uRslan [facility] [address] 1538) RAD, CHEST, 1 VIEW, NON [id number] 07:11:00Reason for exam:->post extubationShould this be performed at the bedside?->YesFINAL REPORT Chest, one view HISTORY: Status post extubation Comparison: 2018 Findings: Lungs: Stable bilateral airspace disease. Heart: Normal in size. Pleura: No pleural effusion or pneumothorax. Bones: Unremarkable. Lines/tubes: Unchanged position of right-sided hemodialysis catheter. IMPRESSION: No significant interval change. Signed: Gary Tuckereport Verified D ate/Time: 01/27/2019 07:11:40 Reading Location: [facility] B1 C013X Ortho Consult Reading Room COMPREHENSIVE METABOLIC [id number] 05:10:00 Test Item Value Reference Range Interpretation Comments TOTAL PROTEIN 5.4 gm/dL 6.0-8.3 L (BEAKER) (test code = 770) ALBUMIN (AKER) 2.4 g/dL 3.5-5.0 L (test code = [...] S NOT APPLICABLE FOR DIALYSIS PATIEN TS. [id number] 05:04:00 Test Item Value Reference Range Interpretation Comments PHOSPHORUS (BEAKER) (test code = 4.3 mg/dL 2.3-4.7 604) [id number] 05:04:00 Test Item Value Reference Range Interpretation Comments MAGNESIUM (BEAKER) (test code = 1.7 mg/dL 1.6-2.6 627) CBC W/PLT COUNT & AUTO [id number] 04:51:00 Test Item Value Reference Range Interpretation [...] 0-1 PERCENT (BEAKER) (test code = 2801) [id number] 21:17:00 Test Item Value Reference Range Interpretation [...] (BEAKER) (test code = 2801) POCT-LACTIC ACID, [id number] 20:44:00 Test Item Value Reference Range Interpretation Comments POC-LACTIC ACID, 0.8 mmol/L 0.9-1.7 L TESTED AT [place] [address] VENOUS (BEAKER) ([facility] code = 2805) [address] [id number] 20:44:00 Test Item Value Reference Range Interpretation Comments POC-HEMOGLOBIN 9.2 g/dL 12.0-15.0 L TESTED AT [place] [address] (BEAKER) (test code = [facility] Ruslan [facility] 1856) [address] AT [address] [address] POCT-BLOOD GASES, [id number] 20:43:00 Test Item Value Reference Range Interpretation Comments TEMP, CELSIUS-POC 37.0 (BEAKER) (test code = 1834) FIO2-POC (BEAKER) TESTED AT [place] [address] (test code = 1835) [facility] [place] [address] PH, VENOUS-POC 7.475 7.320-7.420 H (BEAKER) (test code = 1842) PCO2, VENOUS-POC 40.3 mm Hg 41.0-51.0 L (BEAKER) (test code = 1843) PO2, VENOUS-POC 43.0 mm Hg 25.0-40.0 H (BEAKER) (test code = 1844) SO2, VENOUS-POC 82.0 % 40.0-70.0 H (BEAKER) (test code = 1845) HCO3, VENOUS-POC 29.7 meq/L 21.0-29.0 H (BEAKER) (test code = 1846) BASE EXCESS, 6.0 meq/L -2.0-3.0 H VENOUS-POC ([facility]) (test code = 1847) [id number] 20:43:00 Test Item Value Reference Range Interpretation Comments POC-SODIUM ([facility]) 137 meq/L 135-148 TESTED [place] [address] (test code = 1542) [facility] [address] [id number] 20:43:00 Test Item Value Reference Range Interpretation Comments POC-POTASSIUM 5.0 meq/L 3.6-5.5 TESTED AT [place] [address] ([facility]) (test code [facility] [address] = 1540) [id number] 20:43:00 Test Item Value Reference Range Interpretation Comments POC-GLUCOSE ([facility]) 120 mg/dL 70-110 H TESTED AT [place] [address] (test code = 1855) [facility] [address] POCT-CALCIUM [id number] 20:43:00 Test Item Value Reference Range Interpretation Comments POC-CALCIUM IONIZED 1.14 mmol/L 1.12-1.27 TESTED [place] [address] ([facility]) (test code = [facility] 1536) [address] [id number] 20:43:00 Test Item Value Reference Range Interpretation Comments POC-HEMATOCRIT 27 % 36-45 L TESTED AT [place] [address] ([facility]) (test code = [facility] [address] 1857) POCT-GLUCOSE [id number] 18:18:00 Test Item Value Reference Range Interpretation Comments POC-GLUCOSE METER 105 mg/dL 70-110 TESTED AT [place] [address] ([facility]) (test code = [facility] 1538) [address] POCT-GLUCOSE [id number] 12:30:00 Test Item Value Reference Range Interpretation Comments POC-GLUCOSE METER 97 mg/dL 70-110 TESTED AT [place] [address] ([facility]) (test code = [facility] [address] 1538) RAD, CHEST, 1 VIEW, NON [id number] 10:02:00Reason for exam:->post extubationShould this be performed at the bedside?->YesFINAL REPORT CLINICAL HISTORY: post extubation TECHNIQUE: 1 view of the chest. COMPARISON: 01/25/2019 IMPRESSION: The right central line is unchanged. There are no focal infiltrates or significant appearing effusions. The cardiomediastinal silhouette is magnified by technique. Signed: Carlee Lindo Verified Date/Time: 01/26/2019 10:02:54 Reading Location: [facility] Reading Room REHENSIVE METABOLIC [id number] 06:30:00 Test Item Value Reference Range Interpretation [...] S NOT APPLICABLE FOR DIALYSIS PATIEN TS. [id number] 06:28:00 Test Item Value Reference Range Interpretation Comments MAGNESIUM (BEAKER) 1.6 mg/dL 1.6-2.6 Specimen slightly (test code = 627) hemolyzed [id number] 06:28:00 Test Item Value Reference Range Interpretation Comments PHOSPHORUS (BEAKER) 3.5 mg/dL 2.3-4.7 Specimen slightly (test code = 604) hemolyzed CALCIUM, [id number] 06:18:00 Test Item Value Reference Range Interpretation Comments CALCIUM IONIZED (BEAKER) (test 1.01 mmol/L 1.12-1.27 L code = 698) PH, BLOOD (BEAKER) (test code = 7.50 1810) CBC W/PLT COUNT & AUTO [id number] 06:03:00 Test Item Value Reference Range Interpretation [...] PERCENT (BEAKER) (test code = 2801) CT, [id number] 00:46:00FINAL REPORT CLINICAL HISTORY: Large focal induration [...] Postsurgical changes of the left pelvis. Signed: Kim Roberts MDReport Verified Date/Time: 01/26/2019 00:46:02 Reading Location: [address] Reading Room Electronicallysigned by: KIM ROBERTS M.D. on 01/26/2019 12:46 AMHEMOGLOBIN AND HEMATOCRIT 2019-01-26 00:02:00 Test Item Value Reference Range Interpretation Comments HEMOGLOBIN (BEAKER) (test code = 9.0 GM/DL 11.2-15.7 L 410) HEMATOCRIT (BEAKER) (test code = 26.9 % 34.1-44.9 L 411) POCT-GLUCOSE [id number] 21:49:00 Test Item Value Reference Range Interpretation Comments POC-GLUCOSE METER 159 mg/dL 70-110 H TESTED AT [facility] (BEAKER) (test code = SHAKIR[facility]OLBY GODOY 1538) [address] POCT-GLUCOSE [id number] 12:38:00 Test Item Value Reference Range Interpretation Comments POC-GLUCOSE METER 163 mg/dL 70-110 H TESTED AT [place] [id number] ([facility]) (test code = ILDA Mercer [facility] 1538) [address] RAD, CHEST, 1 VIEW, NON [id number] 10:18:00Reason for exam:->post extubationShould this be performed at the bedside?->YesFINAL REPORT CLINICAL HISTORY: post extubation TECHNIQUE: 1 view of the chest. COMPARISON: 01/24/2019 IMPRESSION: The right central line is unchanged. There are no infiltrates or effusions. The cardiomediastinal silhouette is magnified by technique. Signed: Carlee Lindo MDReportVerified Date/Time: 01/25/2019 10:18:20 Reading Location: [facility] Radiology Reading Room POCT-GLUCOSE METER 2019-01-25 08:57:00 Test Item Value Reference Range Interpretation Comments POC-GLUCOSE METER 117 mg/dL 70-110 H TESTED AT [facility] ([facility]) (test code = ILDA Mercer [facility] 1538) [address] COMPREHENSIVE METABOLIC [id number] 08:20:00 Test Item Value Reference Range Interpretation [...] S NOT APPLICABLE FOR DIALYSIS PATIEN TS. [id number] 08:18:00 Test Item Value Reference Range Interpretation Comments PHOSPHORUS (BEAKER) (test code = 4.7 mg/dL 2.3-4.7 604) [id number] 08:18:00 Test Item Value Reference Range Interpretation Comments MAGNESIUM (BEAKER) (test code = 2.0 mg/dL 1.6-2.6 627) CBC W/PLT COUNT & AUTO [id number] 06:36:00 Test Item Value Reference Range Interpretation [...] PERCENT (BEAKER) (test code = 2801) CALCIUM, [id number] 06:35:00 Test Item Value Reference Range Interpretation Comments CALCIUM IONIZED (BEAKER) (test 1.01 mmol/L 1.12-1.27 L code = 698) PH, BLOOD (BEAKER) (test code = 7.46 1810) BLOOD [id number] 20:01:00 Test Item Value Reference Range Interpretation Comments CULTURE (BEAKER) (test No growth in 5 days code = 1095) BLOOD [id number] 20:01:00 Test Item Value Reference Range Interpretation Comments CULTURE (BEAKER) (test No growth in 5 days code = 1095) POCT-GLUCOSE [id number] 19:39:00 Test Item Value Reference Range Interpretation Comments POC-GLUCOSE METER 181 mg/dL 70-110 H TESTED AT [facility] 6720 (BEAKER) (test code = ILDA Mercer [facility] 1538) [address] CBC W/PLT COUNT & AUTO [id number] 18:18:00 Test Item Value Reference Range Interpretation [...] ABSOLUTE COUNT 0.48 K/ L 0.04-0.36 H (BEAKER) (test code = 416) BASOPHILS ABSOLUTE COUNT (BEAKER) 0.02 K/ L 0.01-0.08 (test code = 417) IMMATURE GRANULOCYTES-RELATIVE 1 % 0-1 PERCENT (BEAKER) (test code = 2801) POCT-GLUCOSE [id number] 18:15:00 Test Item Value Reference Range Interpretation Comments POC-GLUCOSE METER 198 mg/dL 70-110 H TESTED AT [place] [address] ([facility]) (test code = [facility] 1538) [address] HEMOGLOBIN AND [id number] 17:20:00 Test Item Value Reference Range Interpretation Comments HEMOGLOBIN ([facility]) (test code = 6.7 GM/DL 11.2-15.7 L 410) HEMATOCRIT ([facility]) (test code = 21.6 % 34.1-44.9 L 411) POCT-GLUCOSE [id number] 16:28:00 Test Item Value Reference Range Interpretation Comments POC-GLUCOSE METER 143 mg/dL 70-110 H TESTED AT [place] [address] ([facility]) (test code = [facility] 1538) [address] POCT-GLUCOSE [id number] 12:06:00 Test Item Value Reference Range Interpretation Comments POC-GLUCOSE METER 139 mg/dL 70-110 H TESTED AT [place] [address] ([facility]) (test code = [facility] 1538) [address] [id number] 09:03:00 Test Item Value Reference Range Interpretation Comments AMMONIA (PARAG) (test code = 348) 18 mol/L 18-72 RAD, CHEST, 1 VIEW, NON [id number] 08:38:00Reason for exam:->post extubationShould this be performed at the bedside?->YesFINAL REPORT CLINICAL HISTORY: post extubation TECHNIQUE: 1 view of the chest. COMPARISON: 01/23/2019 IMPRESSION: The right central line is unchanged. Medial left lung base consolidation is unchanged. There is no increasing pleural fluid. The cardiomediastinal silhouette is magnified by technique. Signed: Carlee Lindoeport Verified Date/Time: 01/24/2019 08:38:05 Reading Location: [facility] Radiology Reading Room COMPREHENSIVE METABOLIC [id number] 08:21:00 Test Item Value Reference Range Interpretation [...] S NOT APPLICABLE FOR DIALYSIS PATIEN TS. [id number] 08:12:00 Test Item Value Reference Range Interpretation Comments PHOSPHORUS (BEAKER) (test code = 4.3 mg/dL 2.3-4.7 604) [id number] 08:12:00 Test Item Value Reference Range Interpretation Comments MAGNESIUM (BEAKER) (test code = 1.8 mg/dL 1.6-2.6 627) VITAMIN B12 AND [id number] 06:28:00 Test Item Value Reference Range Interpretation Comments VITAMIN B12 (BEAKER) (test code = 1321 pg/mL 213-816 H 774) FOLATE (BEAKER) (test code = 362) 5.2 ng/mL >=7.0 L TSH/FREE T4 IF [id number] 06:15:00 Test Item Value Reference Range Interpretation Comments THYROID STIMULATING HORMONE 3.79 uIU/mL 0.35-4.94 (BEAKER) (test code = 772) PROTHROMBIN [id number] 05:41:00 Test Item Value Reference Range Interpretation [...] code = 2801) URINALYSIS W/ REFLEX URINE [id number] 02:53:00 Test Item Value Reference Range Interpretation [...] (test code = 2795) CT, BRAIN, WITHOUT [id number] 00:46:00FINAL REPORT EXAM: CT head without contrast. [...] persists. Signed: Joseline Darling Verified Date/Time: 01/24/2019 00:46:49 Reading Location: [address] Body Reading Room POCT-GLUCOSE METER 2019-01-23 23:21:00 Test Item Value Reference Range Interpretation Comments POC-GLUCOSE METER 111 mg/dL 70-110 H TESTED AT [place] [address] ([facility]) (test code = ILDA Mercer [facility] 1538) [address] POCT-GLUCOSE [id number] 18:03:00 Test Item Value Reference Range Interpretation Comments POC-GLUCOSE METER 141 mg/dL 70-110 H TESTED AT [place] [address] ([facility]) (test code = SHAKIRASD Ruslan [facility] 1538) [address] RAD, CHEST, 1 VIEW, NON [id number] 14:38:00Reason for exam:->edemaShould this be performed at [...] MDReport Verified Date/Time: 01/23/2019 14:38:12 Reading Location: [place] [id number] Consult Reading Room CT, CTANGIO BRAIN 2019-01-23 [...] discernible acute ischemic injury to the brain pa renchyma. No intracranial hemorrhage. 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 Distal opacification is noted with no major branch occlusion arising from the [place]. Atherosclerotic disease of the bifurcations [...] MDReport Verified Date/Time: 01/23/2019 13:43:17 Reading Location: [address] Neuro Reading Room CT, CAROTID, [id number] 13:43:00Reason for exam:->Symptoms onset less than 6 [...] no major branch occlusion arising from the [place]. 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 Within the limits of motion artifact, no infarct core or obvious perfusion mismatch is identified within the perfusion parametric maps. The examination was reviewed in real-time with feedback provided to the neurology team at 1320 hours on January 23, 2019. Signed: JR Mercado Robert MDRepjose manuel Verified Date/Time: 01/23/2019 13:43:17 Reading Location: [address] Neuro Reading Room CT, CEREBRAL PERFUSION [id number] 13:43:00Reason for exam:->Symptom onset less than 6 [...] discernible acute ischemic injury to the brain pa renchyma. No intracranial hemorrhage. 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 Distal opacification is noted with no major branch occlusion arising from the [place]. Atherosclerotic disease of the bifurcations [...] MDReport Verified Date/Time: 01/23/2019 13:43:17 Reading Location: [address] Neuro Reading Room BLOOD GAS, [id number] 12:48:00 Test Item Value Reference Range Interpretation [...] (test code = 1819) 21.0 % BLOOD [id number] 12:01:00 Test Item Value Reference Range Interpretation Comments CULTURE (BEAKER) (test No growth in 5 days code = 1095) BLOOD [id number] 12:01:00 Test Item Value Reference Range Interpretation Comments CULTURE (BEAKER) (test No growth in 5 days code = 1095) POCT-GLUCOSE [id number] 11:47:00 Test Item Value Reference Range Interpretation Comments POC-GLUCOSE METER 107 mg/dL 70-110 TESTED AT [facility] ([facility]) (test code = [facility] 1538) [address] POCT-GLUCOSE [id number] 10:34:00 Test Item Value Reference Range Interpretation Comments POC-GLUCOSE METER 94 mg/dL 70-110 TESTED AT [place] [address] ([facility]) (test code = [facility] [address] 1538) COMPREHENSIVE METABOLIC [id number] 06:33:00 Test Item Value Reference Range Interpretation [...] S NOT APPLICABLE FOR DIALYSIS PATIEN TS. [id number] 06:18:00 Test Item Value Reference Range Interpretation Comments PHOSPHORUS (BEAKER) (test code = 7.1 mg/dL 2.3-4.7 H 604) [id number] 06:18:00 Test Item Value Reference Range Interpretation Comments MAGNESIUM (BEAKER) (test code = 2.0 mg/dL 1.6-2.6 627) CBC W/PLT COUNT & AUTO [id number] 06:05:00 Test Item Value Reference Range Interpretation [...] PERCENT (BEAKER) (test code = 2801) CALCIUM, [id number] 05:50:00 Test Item Value Reference Range Interpretation Comments CALCIUM IONIZED (BEAKER) (test 1.00 mmol/L 1.12-1.27 L code = 698) PH, BLOOD (BEAKER) (test code = 7.35 1810) POCT-GLUCOSE [id number] 21:50:00 Test Item Value Reference Range Interpretation Comments POC-GLUCOSE METER 138 mg/dL 70-110 H TESTED AT [facility] 6720 ([facility]) (test code = [facility] 1538) [address] POCT-GLUCOSE [id number] 18:02:00 Test Item Value Reference Range Interpretation Comments POC-GLUCOSE METER 147 mg/dL 70-110 H TESTED AT [facility] 6720 ([facility]) (test code = [facility] 1538) [address] RAD, PELVIS, 1 OR 2 [id number] 15:58:00Reason for exam:->postop ORIFShould this be performed at the bedside?->YesFINAL REPORT CLINICAL HISTORY: postop ORIF TECHNIQUE: AP pelvis COMPARISON: IMPRESSION: The patient is status post side plate and screw fixation of comminuted fracture through the left pelvis involving the acetabulum. There is improved postsurgical alignment on the single frontal view. There is a surgical drain in place. Signed: Carlee Lindo Verified Date/Time: 01/22/2019 15:58:10 Reading Location: [address] Consult Reading Room POCT-GLUCOSE METER 2019-01-22 15:40:00 Test Item Value Reference Range Interpretation Comments POC-GLUCOSE METER 134 mg/dL 70-110 H TESTED AT [place] [address] ([facility]) (test code = ILDA RENDON [place] 1538) [address] [place], DIRECTOR OF ADMISSIONS IN OR/30 MINUTE [id number] 14:40:00Reason for exam:- >left acetabulum fractureFINAL REPORT [...] Lindo Verified Date/Time: 01/22/2019 14:40:54 Reading Location: [address] Consult Reading Room RAD, CHEST, 1 VIEW, NON [id number] 09:05:00Reason for exam:->post extubationShould this be performed at the bedside?->YesFINAL REPORT CLINICAL HISTORY: post extubation TECHNIQUE: 1 view of the chest. COMPARISON: 01/21/2019 IMPRESSION: The right central line is unchanged. Left lung base consolidationis unchanged. There is no increasing pleural fluid. The cardiomediastinal silhouette is magnified bytechnique. Signed: Lindo, Carlee MDReport Verified Date/Time: 01/22/2019 09:05:30 Reading Location: [facility] Reading Room POCT-GLUCOSE [id number] 08:37:00 Test Item Value Reference Range Interpretation Comments POC-GLUCOSE METER 115 mg/dL 70-110 H TESTED AT [facility] 6720 (BEAKER) (test code = ILDA REND[place] 1538) [address] COMPREHENSIVE METABOLIC [id number] 06:11:00 Test Item Value Reference Range Interpretation [...] S NOT APPLICABLE FOR DIALYSIS PATIEN TS. [id number] 06:10:00 Test Item Value Reference Range Interpretation Comments PHOSPHORUS (BEAKER) (test code = 5.2 mg/dL 2.3-4.7 H 604) [id number] 06:10:00 Test Item Value Reference Range Interpretation Comments MAGNESIUM (BEAKER) (test code = 2.1 mg/dL 1.6-2.6 627) CBC W/PLT COUNT & AUTO [id number] 05:36:00 Test Item Value Reference Range Interpretation [...] PERCENT (BEAKER) (test code = 2801) BLOOD [id number] 20:01:00 Test Item Value Reference Range Interpretation Comments CULTURE (BEAKER) (test No growth in 5 days code = 1095) POCT-GLUCOSE [id number] 18:30:00 Test Item Value Reference Range Interpretation Comments POC-GLUCOSE METER 147 mg/dL 70-110 H TESTED AT [facility] 6720 ([facility]) (test code = [facility] 1538) [address] POCT-GLUCOSE [id number] 13:50:00 Test Item Value Reference Range Interpretation Comments POC-GLUCOSE METER 159 mg/dL 70-110 H TESTED AT [facility] 6720 ([facility]) (test code = [facility] 1538) [address] RAD, PELVIS, 1 OR 2 [id number] 12:51:00Reason for exam:->s/p L distal femur traction [...] MDReport Verified Date/Time: 01/21/2019 12:51:37 Reading Location: [facility] B1 C013Y CT Body Reading Room CT, PELVIS, WO [id number] 09:49:00FINAL REPORT CT of the pelvis without [...] femur is superiorly migrated as well. There are additional fractures involving the left superior and inferior [...] diverticulosis. IMPRESSION: Extensive left pelvic fractures as d escribed. Advanced vascular calcification. Signed: Faiza Chu Verified Date/Time: 01/21/201909:49:33 Reading Location: [address] Neuro Reading Room POCT- GLUCOSE [id number] 08:57:00 Test Item Value Reference Range Interpretation Comments POC-GLUCOSE METER 176 mg/dL 70-110 H TESTED AT [facility] 6720 ([facility]) (test code = ILDA Mercer [facility] 1535) [address] CBC W/PLT COUNT & AUTO [id number] 08:19:00 Test Item Value Reference Range Interpretation Comments WHITE BLOOD CELL COUNT ([facility]) 14.3 K/ L 3.5-10.5 H (test code = 775) RED BLOOD CELL COUNT ([facility]) 2.91 M/ L 3.93-5.22 L (test code = 761) HEMOGLOBIN ([facility]) (test code = 8.4 GM/DL 11.2-15.7 L [...] = 2801) RAD, PELVIS, 1 OR 2 [id number] 08:17:00Reason for exam:->L acetabulum fx FINAL REPORT [...] osteopenia. Vascular calcifications are seen. Signed: Claudio JuniorEQUISO Verified Date/Time: 01/21/2019 08:17:20 Reading Location: [address] Transitional Reading Room RAD, FEMUR, MIN. 2 VIEWS, [id number] 08:17:00Reason for exam:->L thigh pain after in- [...] osteopenia. Vascular calcifications are seen. Signed: Claudio JuniorEQUISO Verified Date/Time: 01/21/2019 08:17:20 Reading Location: [address] Transitional Reading Room RAD, LEG, [id number] 08:17:00Reason for exam:->L tib/fib pain after in [...] Vascular calcifications are seen. Signed: Claudio Junior RijuvendedraEQUISO Verified Date/Time: 01/21/2019 08:17:20 Reading Location: [facility] C[facility] Transitional Reading Room COMPREHENSIVE METABOLIC [id number] 07:41:00 Test Item Value Reference Range Interpretation [...] S NOT APPLICABLE FOR DIALYSIS PATIEN TS. [id number] 07:32:00 Test Item Value Reference Range Interpretation Comments PHOSPHORUS (BEAKER) (test code = 3.5 mg/dL 2.3-4.7 604) [id number] 07:32:00 Test Item Value Reference Range Interpretation Comments MAGNESIUM (BEAKER) (test code = 1.8 mg/dL 1.6-2.6 627) VANCOMYCIN LEVEL, [id number] 07:30:00 Test Item Value Reference Range Interpretation Comments VANCOMYCIN RANDOM (BEAKER) (test 13.5 ug/mL code = 523) Reference Range: No NormalsCALCIUM, [id number] 07:07:00 Test Item Value Reference Range Interpretation Comments CALCIUM IONIZED (BEAKER) (test 0.97 mmol/L 1.12-1.27 L code = 698) PH, BLOOD (BEAKER) (test code = 7.43 1810) RAD, KNEE, 3 VIEWS, [id number] 04:15:00Reason for exam:->fallFINAL REPORT RAD, KNEE, 3 VIEWS, LEFT CLINICAL INDICATION: fall COMPARISON: None FINDINGS: Frontal, oblique and cross table lateral views of the left knee were obtained. There is no acute fracture or dislocation. The joint space are maintained. There are vascular calcifications. IMPRESSION: No acute fracture or dislocation. Signed: Joseline Darling Verified Date/Time: 01/21/2019 04:15:52 Reading Location: [address] Body Reading Room RAD, HIP, 2 VIEWS, [id number] 04:06:00Reason for exam:->FallFINAL REPORT RAD, HIP, 2 [...] Darling Verified Date/Time: 01/21/2019 04:06:53 Reading Location: [address] Body ReadingRoom RAD, CHEST, 2 [id number] 04:04:00Reason for exam:->fallFINAL REPORT Exam: Chest x-ray, [...] Joseline Darling Verified Date/Time: 01/21/2019 04:04:05Reading Location: [address] Body Reading Room CT, BRAIN, WITHOUT [id number] 03:40:00FINAL REPORT EXAM: CT head without contrast. CLINICAL HISTORY: Head trauma, h eadache COMPARISON: None. TECHNIQUE: CT images of the [...] head lacunar infarcts. No acute intracranial hemorrhage, e xtra-axial fluid collection or calvarial fracture. Signed: Joseline Darling Verified Date/Time: 01/21/2019 03:40:38 Reading Location: [address] Body Reading Room POCT-GLUCOSE [id number] 02:33:00 Test Item Value Reference Range Interpretation Comments POC-GLUCOSE METER 124 mg/dL 70-110 H TESTED AT [place] [address] ([facility]) (test code = ILDA Mercer [place] 1538) [address] POCT-GLUCOSE [id number] 18:31:00 Test Item Value Reference Range Interpretation Comments POC-GLUCOSE METER 120 mg/dL 70-110 H TESTED AT [place] [address] ([facility]) (test code = ILDA Mercer [place] 1538) [address] POCT-GLUCOSE [id number] 13:05:00 Test Item Value Reference Range Interpretation Comments POC-GLUCOSE METER 107 mg/dL 70-110 TESTED AT [place] [address] ([facility]) (test code = ILDA Mercer [facility] 1538) [address] BLOOD [id number] 09:39:00 Test Item Value Reference Range Interpretation Comments CULTURE A From Anaerobic Bottle ([facility]) (test Only Coagulas e negative code = 1095) Staphylococcuso f a second type GRAM STAIN From aerobic and RESULT ([facility]) anaerobic (test code = bottles: gram 1123) positive cocci in pairs and clusters [id number] 05:14:00 Test Item Value Reference Range Interpretation Comments PHOSPHORUS (BEAKER) (test code = 6.0 mg/dL 2.3-4.7 H 604) [id number] 05:14:00 Test Item Value Reference Range Interpretation Comments MAGNESIUM (BEAKER) (test code = 2.3 mg/dL 1.6-2.6 627) COMPREHENSIVE METABOLIC [id number] 05:14:00 Test Item Value Reference Range Interpretation [...] PATIEN TS. CBC W/PLT COUNT & AUTO [id number] 04:46:00 Test Item Value Reference Range Interpretation [...] PERCENT (BEAKER) (test code = 2801) CALCIUM, [id number] 04:40:00 Test Item Value Reference Range Interpretation Comments CALCIUM IONIZED (BEAKER) (test 1.11 mmol/L 1.12-1.27 L code = 698) PH, BLOOD (BEAKER) (test code = 7.42 1810) [id number] 04:32:00 Test Item Value Reference Range Interpretation Comments PHOSPHORUS (BEAKER) (test code = 6.0 mg/dL 2.3-4.7 H 604) [id number] 04:32:00 Test Item Value Reference Range Interpretation Comments MAGNESIUM (BEAKER) (test code = 2.2 mg/dL 1.6-2.6 627) COMPREHENSIVE METABOLIC [id number] 04:32:00 Test Item Value Reference Range Interpretation [...] NOT APPLICABLE FOR DIALYSIS PATIEN TS. POCT-GLUCOSE [id number] 00:04:00 Test Item Value Reference Range Interpretation Comments POC-GLUCOSE METER 131 mg/dL 70-110 H TESTED AT [place] [address] ([facility]) ([facility] 1538) [address] POCT-GLUCOSE [id number] 17:32:00 Test Item Value Reference Range Interpretation Comments POC-GLUCOSE METER 132 mg/dL 70-110 H TESTED AT [place] [id number] ([facility]) (test code = [facility] [place] [facility] 1538) [address] POCT-GLUCOSE [id number] 13:12:00 Test Item Value Reference Range Interpretation Comments POC-GLUCOSE METER 79 mg/dL 70-110 TESTED AT [place] [address] ([facility]) (test code = [facility] [place] [facility] [address]) BLOOD CULTURE IDENTIFICATION [id number] 11:47:00 Test Item Value Reference Range Interpretation Comments LISTERIA MONOCYTOGENES Not detected Not detected (test code = 7292436) STAPHYLOCOCCUS (test Detected Not detected A Coagula se negative code = 9423885) Staph specie s (CoNS)- methicillin resistantFirst- mariel e therapy: Vancomycin MecA DETECTED Possib le contamination. The likelihood of pathogenicity i s increased if th e organism is observed in multiple blood cultures obtain ed from separate venipunctures. Reference Range : Not Detected STAPHYLOCOCCUS AUREUS Not detected Not detected (test code = 8631734) STREPTOCOCCUS (test code Not detected Not detected = 0664727) STREPTOCOCCUS AGALACTIAE Not detected Not detected (GROUP B) (test code = 0277750) STREPTOCOCCUS PNEUMONIAE Not detected Not detected (test code = 6160704) STREPTOCOCCUS PYOGENES Not detected Not detected (GROUP A) (test code = 1659175) ACINETOBACTER BAUMANNII Not detected Not detected (test code = 6912666) HAEMOPHILUS INFLUENZAE Not detected Not detected (test code = 3699156) NEISSERIA MENINGITIDIS Not detected Not detected (test code = 6717537) ENTEROBACTERIACEAE (test Not detected Ple ase refer to code = 8633818) culture resu lts for ID and susceptibilitie s.. ENTEROBACTER CLOACOE Not detected Not detected COMPLEX (test code = 6228688) KLEBSIELLA OXYTOCA (test Not detected Not detected code = 2937480) KLEBSIELLA PNEUMONIAE Not detected Not detected (test code = 1650) PROTEUS (test code = Not detected Not detected 9262762) SERRATIA MARCESCENS Not detected Not detected (test code = 5788353) ARACELI ALBICANS (test Not detected Not detected code = 8700112) ARACELI GLABRATA (test Not detected Not detected code = 7120081) ARACELI KRUSEI (test Not detected Not detected code = 4654814) ARACELI PARAPSILOSIS Not detected Not detected (test code = 6040134) ARACELI TROPICALIS (test Not detected Not detected code = 6385297) ESCHERICHIA COLI (test Not detected Not detected code = 0121916) METHICILLIN-RESISTANCE Detected Not detected A GENE (test code = 3972102) VANCOMYCIN-RESISTANCE Not detected GENE (test code = 8773125) CARBAPENEM-RESISTANCE Not detected Please refer to GENE (test code = culture re sults 6269611) for ID and susceptibilitie s.. ENTEROCOCCUS-BEAKER Not detected Not detected (test code = 2825108) PSEUDOMONAS Not detected Not detected AERUGINOSA-BEAKER (test code = 3743414) Other bacteria and resistance markers not targeted [...] - [facility] using the [employer] Blood Culture ID Panel. It is FDA cleared and has been verified and approved by the [facility] for clinical use. This laboratory is CLIA-certified and College ofAmerican Pathologists (CAP)-accredited to perform high complexity testing.SPUTUM CULTURE + GRAM [id number] 10:05:00 Test Item Value Reference Range Interpretation Comments CULTURE (BEAKER) 2+ Normal respiratory (test code = 1095) laquita present GRAM STAIN RESULT 2+ WBCs (BEAKER) (test code = 1123) GRAM STAIN RESULT 0-5 epithelial cells (BEAKER) (test code = 43096) GRAM STAIN RESULT 2+ gram positive cocci (BEAKER) (test code = in chains, pairs and 49425) clusters RAD, CHEST, 1 VIEW, NON [id number] 07:28:00Reason for exam:- >intubatedShould this be performed at the bedside?->YesFINAL REPORT Chest one view. Clinical history: intubated Comparison: 01/18/2019 Discussion: A frontal chest is provided. Cardiomediastinal contours are unchanged. Lines and tubes are in stable position. Unchanged retrocardiac opacity. No new consolidation. No pneumothorax orlarge effusion. Signed: [facility] Verified Date/Time: 01/19/2019 07:28:52 Reading Location:[facility] Radiology Reading Room COMPREHENSIVE METABOLIC [id number] 06:18:00 Test Item Value Reference Range Interpretation [...] S NOT APPLICABLE FOR DIALYSIS PATIEN TS. [id number] 05:50:00 Test Item Value Reference Range Interpretation Comments PHOSPHORUS (BEAKER) (test code = 2.9 mg/dL 2.3-4.7 604) [id number] 05:50:00 Test Item Value Reference Range Interpretation Comments MAGNESIUM (BEAKER) (test code = 1.7 mg/dL 1.6-2.6 627) VANCOMYCIN LEVEL, [id number] 05:50:00 Test Item Value Reference Range Interpretation Comments VANCOMYCIN RANDOM (BEAKER) (test 10.9 ug/mL code = 523) Reference Range: No NormalsCBC W/PLT COUNT & AUTO [id number] 05:25:00 Test Item Value Reference Range Interpretation [...] (BEAKER) (test code = 2801) BLOOD GAS, [id number] 05:21:00 Test Item Value Reference Range Interpretation [...] (test code = 1819) 40.0 % CALCIUM, [id number] 05:21:00 Test Item Value Reference Range Interpretation Comments CALCIUM IONIZED (BEAKER) (test 1.17 mmol/L 1.12-1.27 code = 698) PH, BLOOD ([facility]) (test code = 7.57 1810) POCT-GLUCOSE [id number] 23:38:00 Test Item Value Reference Range Interpretation Comments POC-GLUCOSE METER 101 mg/dL 70-110 TESTED AT [place] [address] ([facility]) (test code = [place] [address]) [address] POCT-GLUCOSE [id number] 18:20:00 Test Item Value Reference Range Interpretation Comments POC-GLUCOSE METER 105 mg/dL 70-110 TESTED AT [place] [address] ([facility]) (test code = [place] 15[address]) [address] PROTHROMBIN [id number] 15:43:00 Test Item Value Reference Range Interpretation Comments PROTIME (BEAKER) (test code = 15.6 seconds 11.7-14.7 H 759) INR ([facility]) (test code = 370) 1.3 <=5.9 RECOMMENDED COUMADIN/WARFARIN INR THERAPY RANGESSTANDARD DOSE: 2.0 - 3.0 Includes: PROPHYLAXIS forvenous thrombosis, systemic embolization; TREATMENT for venous thrombosis and/or pulmonary embolus.HIGH RISK: Target INR is 2.5-3.5 for patients with mechanical heart valves.POCT-GLUCOSE [id number] 15:09:00 Test Item Value Reference Range Interpretation Comments POC-GLUCOSE METER 110 mg/dL 70-110 TESTED AT [place] [address] (BEAKER) (test code = ILDA Mrecer [facility] 1538) [address] HEPATITIS B SURFACE [id number] 07:49:00 Test Item Value Reference Range Interpretation Comments HEPATITIS B SURFACE ANTIGEN (2) Nonreactive Nonreactive (BEAKER) (test code = 2585) [id number] 07:42:00 Test Item Value Reference Range Interpretation Comments PHOSPHORUS (BEAKER) (test code = 4.6 mg/dL 2.3-4.7 604) [id number] 07:42:00 Test Item Value Reference Range Interpretation Comments MAGNESIUM (BEAKER) (test code = 1.7 mg/dL 1.6-2.6 627) COMPREHENSIVE METABOLIC [id number] 07:42:00 Test Item Value Reference Range Interpretation [...] S NOT APPLICABLE FOR DIALYSIS PATIEN TS. [id number] 07:01:00 Test Item Value Reference Range Interpretation Comments PARTIAL THROMBOPLASTIN TIME 83.6 seconds 22.5-36.0 H (BEAKER) (test code = 760) RAD, CHEST, 1 VIEW, NON [id number] 07:00:00Reason for exam:- >intubatedShould this be performed [...] pneumothorax. Signed: Joseline Darlingeport Verified Date/Time: 01/18/2019 07:00:55 Reading Location: [address] Body Reading Room CBC W/PLT COUNT & AUTO [id number] 06:59:00 Test Item Value Reference Range Interpretation [...] (BEAKER) (test code = 2801) BLOOD GAS, [id number] 06:51:00 Test Item Value Reference Range Interpretation [...] -2.0-3.0 (test code = 387) PATIENT TEMPERATURE ([facility]) 37.2 C (test code = 1818) FIO2 ([facility]) (test code = 1819) 40.0 % [id number] 00:22:00 Test Item Value Reference Range Interpretation Comments POTASSIUM ([facility]) (test code = 4.3 meq/L 3.5-5.1 379) [id number] 00:17:00 Test Item Value Reference Range Interpretation Comments PARTIAL THROMBOPLASTIN TIME 68.7 seconds 22.5-36.0 H ([facility]) (test code = 760) [id number] 20:12:00 Test Item Value Reference Range Interpretation Comments PARTIAL THROMBOPLASTIN TIME 61.8 seconds 22.5-36.0 H ([facility]) (test code = 760) POCT-GLUCOSE [id number] 18:39:00 Test Item Value Reference Range Interpretation Comments POC-GLUCOSE METER 80 mg/dL 70-110 TESTED AT [place] [address] ([facility]) (test code = [facility] [address]) POCT-GLUCOSE [id number] 12:28:00 Test Item Value Reference Range Interpretation Comments POC-GLUCOSE METER 80 mg/dL 70-110 TESTED AT [place] [address] ([facility]) (test code = [facility] [address]) [id number] 12:12:00 Test Item Value Reference Range Interpretation Comments PARTIAL THROMBOPLASTIN TIME 65.0 seconds 22.5-36.0 H ([facility]) (test code = 760) TROPONIN [id number] 10:49:00 Test Item Value Reference Range Interpretation Comments TROPONIN I ([facility]) (test code = 0.28 ng/mL 0.00-0.03 [facility]) Troponin I (TnI) levels must be interpreted [...] acute neurological disease, and persistent tachyarrhythmia.RESPIRATORY PANEL [id number] 09:51:00 Test Item Value Reference Range Interpretation [...] - [facility] using the [employer] FilmArray Respiratory Panel. It is FDA cleared and has been verified and approved by the [facility] for clinical use on nasopharyngeal swab specimens.The performance of the FilmArrayRP has not been established in individuals who received influenza vaccine. Recent administration ofa nasal influenza vaccine may cause false positive results for Influenza A and/orInfluenza B.COMPREHENSIVE METABOLIC [id number] 05:18:00 Test Item Value Reference Range Interpretation [...] S NOT APPLICABLE FOR DIALYSIS PATIEN TS. [id number] 05:17:00 Test Item Value Reference Range Interpretation Comments MAGNESIUM (BEAKER) 1.9 mg/dL 1.6-2.6 Specimen slightly (test code = 627) hemolyzed [id number] 05:17:00 Test Item Value Reference Range Interpretation Comments PHOSPHORUS (BEAKER) 4.3 mg/dL 2.3-4.7 Specimen slightly (test code = 604) hemolyzed [id number] 05:01:00 Test Item Value Reference Range Interpretation Comments PARTIAL THROMBOPLASTIN TIME 108.7 seconds 22.5-36.0 H (BEAKER) (test code = 760) CBC W/PLT COUNT & AUTO [id number] 04:48:00 Test Item Value Reference Range Interpretation [...] (BEAKER) (test code = 2801) BLOOD GAS, [id number] 04:41:00 Test Item Value Reference Range Interpretation [...] (test code = 1819) 40.0 % CALCIUM, [id number] 04:41:00 Test Item Value Reference Range Interpretation Comments CALCIUM IONIZED (BEAKER) (test 1.11 mmol/L 1.12-1.27 L code = 698) PH, BLOOD (BEAKER) (test code = 7.47 1810) RAD, CHEST, 1 VIEW, NON [id number] 04:31:00Reason for exam:- >intubatedShould this be performed [...] mediastinum: Stable contours. Additional findings: None. Signed: Patti Pride [facility] Verified Date/Time: 01/17/2019 04:31:10 Reading Location: [address] Neuro Reading Room D GAS, [id number] 01:06:00 Test Item Value Reference Range Interpretation [...] (test code = 1819) 40.0 % TROPONIN [id number] 23:17:00 Test Item Value Reference Range Interpretation [...] acute neurological disease, and persistent tachyarrhythmia.BASIC METABOLIC [id number] 23:05:00 Test Item Value Reference Range Interpretation [...] S NOT APPLICABLE FOR DIALYSIS PATIEN TS. [id number] 23:04:00 Test Item Value Reference Range Interpretation Comments MAGNESIUM (BEAKER) (test code = 1.8 mg/dL 1.6-2.6 627) [id number] 22:56:00 Test Item Value Reference Range Interpretation Comments PARTIAL THROMBOPLASTIN TIME 76.2 seconds 22.5-36.0 H (BEAKER) (test code = 760) HEMOGLOBIN [id number] 22:46:00 Test Item Value Reference Range Interpretation Comments HEMOGLOBIN A1C (BEAKER) (test code = 5.2 % 4.3-6.1 368) POSSIBLE HEMOGLOBIN S VARIANT NOTED IN HEMOGLOBIN A1C CHROMATOGRAPH. SUGGEST HEMOGLOBIN ELECTROPHORESIS IF CLINICALLY INDICATED.B-TYPE NATRIURETIC FACTOR (BNP)2019-01-16 19:08:00 Test Item Value Reference Range Interpretation Comments B-TYPE NATRIURETIC PEPTIDE 3143 pg/mL 0-100 H (BEAKER) (test code = 700) TROPONIN [id number] 18:17:00 Test Item Value Reference Range Interpretation Comments TROPONIN I (BEAKER) (test code = 0.41 ng/mL 0.00-0.03 397) Troponin I (TnI) levels must be [...] acute neurological disease, and persistent tachyarrhythmia.COMPREHENSIVE METABOLIC [id number] 18:10:00 Test Item Value Reference Range Interpretation [...] NOT APPLICABLE FOR DIALYSIS PATIEN TS. LIPID [id number] 18:06:00 Test Item Value Reference Range Interpretation [...] 100-129 Borderline 130-159 High 160-189 Very High [id number] 18:06:00 Test Item Value Reference Range Interpretation Comments MAGNESIUM (BEAKER) (test code = 1.8 mg/dL 1.6-2.6 627) [id number] 18:06:00 Test Item Value Reference Range Interpretation Comments PHOSPHORUS (BEAKER) (test code = 4.7 mg/dL 2.3-4.7 604) LACTIC ACID, [id number] 18:03:00 Test Item Value Reference Range Interpretation Comments LACTATE BLOOD VENOUS (2) (BEAKER) 0.8 mmol/L 0.5-2.2 (test code = 2872) [id number] 17:58:00 Test Item Value Reference Range Interpretation Comments PARTIAL THROMBOPLASTIN TIME 32.0 seconds 22.5-36.0 (BEAKER) (test code = 760) Prior to initiating heparinCBC W/PLT COUNT & AUTO [id number] 17:55:00 Test Item Value Reference Range Interpretation [...] = 2801) RAD, CHEST, 1 VIEW, NON [id number] 17:13:00Post-intubationReason for exam:- >intubationShould this be performed [...] Grubbs Verified Date/Time: 01/16/2019 17:13:52 Reading Location: [facility] RAD, ABDOMEN/KUB, 1 VIEW [id number] 17:06:00Reason for exam:->ng tube placement FINAL REPORT [...] Grubbs Verified Date/Time: 01/16/2019 17:06:42 Reading Location: [facility]
== END 2020-02-11 13:45 | disposition home or self-care (01) ==
LOC: ER 11:23
DX: M20.092 Other deformity of left finger(s) (principal); M79.632 Pain in left forearm; M79.642 Pain in left hand; E11.22 Type 2 diabetes mellitus with diabetic chronic kidney disease; N18.6 End stage renal disease; Z99.2 Dependence on renal dialysis; I50.9 Heart failure, unspecified; Z79.82 Long term (current) use of aspirin; Z79.4 Long term (current) use of insulin; Z88.1 Allergy status to other antibiotic agents; Z88.5 Allergy status to narcotic agent
CPT/HCPCS: 93971; 99284

== ENCOUNTER 2020-03-18 06:05 | Inpatient (IN) | payer OTHER ==
--- OUTSIDE RECORDS SUMMARY | 2020-03-18 06:07 | XMS REPORT | Clinical Summary ---
:1950 Author Organization [facility] Address [address] [place] [address] Care Team Providers Name Role Phone Reid [...] Active Problems Problem Noted Date Anemia 08/30/2017 Encounters Date Type Specialty Care Team Description 02/19/2020 Office Visit Orthopedic Surgery Be Victor, Pain in wrist, unspecified lat erality (Primary Dx) 02/19/2020 Travel 02/13/2020 Travel after 03/18/2019 Social History Tobacco Use Types Packs/Day Years Used Date Former Smoker Cigarettes 0.25 40 Smokeless Tobacco: Never Used Sex Assigned at Date Recorded Not on file Job Start Date Occupation Industry Not on file Not on file Not on file Travel History Travel Start Travel End No recent travel history available. COVID-19 Exposure Response Date Recorded In the last month, have you been in contact with No / Unsure 02/19/2020 10:50 AM CDT someone who was confirmed or suspected to have Coronavirus / COVID-19? Last Filed Vital Signs Not on file Plan of Treatment Health Maintenance Due Date Last Done Comments DIABETIC RETINAL EYE EXAM 1950 DIABETIC FOOT EXAM 1958 URINE MICROALBUMIN 1958 BREAST CANCER SCREENING 1998 COLONOSCOPY SCREENING 1998 SHINGLES VACCINES (#1) 1998 65+ PNEUMOCOCCAL VACCINE (1 of 2 - PCV13) 2013 INFLUENZA VACCINE 04/05/2020 Results Not on fileafter 03/18/2019 Insurance Payer Benefit Plan / Subscriber ID Effective Dates Phone Addre ss Type Group [employer] [facility] Self 1950 [phone] [id number] (Home) [address] [place] [address] Advance Directives For more information, please contact: [phone] Type Date Recorded Patient Specialty Foods Cook Explanati on Advance Directives, Living Will and Medical Power of Branch Sales And Service Representative
--- OUTSIDE RECORDS SUMMARY | 2020-03-18 06:09 | XMS REPORT | Clinical Summary ---
:1950 Author Organization [facility] Address [address] [place] [address] Care Team Providers Name Role Phone Pcp [...] Status calcium acetate Take 667 mg by mouth 0 Active (PHOSLO) 667 mg 3 (three) times capsule daily with meals. epoetin rl-epbx Inject 1 mL (4,000 0 02/15/2019 Active (RETACRIT) 4,000 Units total) unit/mL Soln subcutaneously 3 injection (three) times a week at bedtime. famotidine Take 1 tablet (20 mg 0 02/15/2019 Active (PEPCID) 20 MG total) by mouth tablet daily. lisinopril Take 40 mg by mouth 0 Active (PRINIVIL,ZESTRIL) daily. 40 MG tabletIndications: high blood pressure traMADol (ULTRAM) Take 50 mg by mouth 0 Active 50 mg tablet every 6 (six) hours as needed for Pain. cloNIDine HCl Take 0.2 mg by mouth 0 Active (CATAPRES) 0.2 MG every 8 (eight) tabletIndications: hours as needed. high blood pressure metoprolol Take 1 tablet (50 mg 0 02/14/2019 020 (LOPRESSOR) 50 MG total) by mouth 2 tablet (two) times daily. aspirin 81 MG Take 1 tablet (81 mg 0 02/15/201902/03 chewable tablet total) by mouth daily. atorvastatin Take 1 tablet (40 mg 0 02/14/201902/13 (LIPITOR) 40 MG total) by mouth tablet nightly. Active Problems Problem Noted Date CHF (congestive [...] Specialty Care Team Description 08/01/2019 Abstract Transplant CastañedaMaria Isabelabdelrahman 07/05/2019 Telephone Transplant Precious Landrum RN 06/25/2019 Evaluation Transplant Sissy, ESRD on hemodia lysis (HCC) (Primary Dx); Gloria Grider MD Wound dehi scence; Essential hyper tension; Pre-transplant evaluation for chronic kidney disease; Closed displace d fracture of anterior column of left acetabulum, initial encounter (HCC) 06/22/2019 Telephone Transplant [place], Appointment (Mr Dionicio Ferrari called to daxa rm his mother appt for 06.25.19 and he 's aware to check in at 10:00 am to all ow time for registratio n. I emailed the add ress to for t he appointment.) 06/04/2019 Telephone Transplant [place], Appointment (Pe r Mr. Vonda Gray the transportation company is running late to medicinal plant picker his wif e for the appt on tod ay. Per the transportation company is on the way b ut sure of ETA for the appt. I checked with e clinic staff an d the surgeon please have the patient reschedule. Kayley angela is aware that the next available [facility] cl[facility] is on 06.25.19 ) 06/01/2019 Telephone Transplant Lorraine Farley Appointment 04/30/2019 Abstract Transplant Alfreda Castañeda 04/12/2019 Documentation Transplant Garry, Alfreda 04/12/2019 Abstract Transplant Castañeda, Alfreda 04/06/2019 Telephone Transplant Sim, Na Y 04/05/2019 Abstract Transplant Alfreda Castañeda 04/05/2019 Abstract Transplant Alfreda Castañeda 03/29/2019 Outside Orders Central Scheduling System, Provider ESR D (end stage renal Not In disease) ([facility]) (Primary Dx) after 03/18/2019 Family History Medical History Relation Name Comments [...] 16 06/25/2019 11:06 AM CDT Oxygen Saturation - - Inhaled Oxygen Concentration - - Weight 50.8 kg (112 lb) 06/25/2019 11:06 AM CDT Height 167.6 cm (5' 6") 06/25/2019 11:06 AM CDT Body Mass Index 18.08 06/25/2019 11:06 AM CDT Plan of Treatment Health Maintenance Due Date Last Done Comments BREAST CANCER SCREENING 1950 COLON CANCER SCREENING ANNUAL FOBT 1950 DIABETIC EYE EXAM 1958 DIABETIC FOOT EXAM 1958 URINE MICROALBUMIN 1958 PNEUMOCOCCAL 65+ HIGH/HIGHEST RISK (2 of 2 - PCV13) 11/07/2017 11/07/2016 HEMOGLOBIN A1C 07/19/2019 01/16/2019 MEDICARE ANNUAL WELLNESS (YEAR 2 or FIRST YEAR if no 09/19/2019 IPPE) INFLUENZA VACCINE (#1) 2020 Implants Implanted Type Area Drafter Detail Device Shelf Model / Identifier Expiration Serial / Date Lot Scr [address] 3.5x55mm Ss [id number] - [id number] IMPLANTS Left: NEYMAR :NEYMAR [id number] / Implanted: Qty: 1 on 01/22/2019 by Robert Lovell MD [employer] / Scr [address] 3.5x50mm Ss [id number] - [id number] IMPLANTS Left: NEYMAR :NEYMAR [id number] / Implanted: Qty: 2 on 01/22/2019 by Robert Lovell MD [employer] / Scr [address] 3.5x26mm Ss [id number] - [id number] IMPLANTS Left: NEYMAR :NEYMAR [id number] / Implanted: Qty: 1 on 01/22/2019 by Robert Lovell MD [employer] / Scr [address] 3.5x38mm Ss [id number] - [id number] IMPLANTS Left: NEYMAR :NEYMAR [id number] / Implanted: Qty: 1 on 01/22/2019 by Robert Lovell MD [employer] / Scr [address] 3.5x60mm Ss [id number] - [id number] IMPLANTS Left: NEYMAR :NEYMAR [id number] / Implanted: Qty: 1 on 01/22/2019 by Robert Lovell MD [employer] / Scr [address] 3.5x95mm Ss [id number] - [id number] IMPLANTS Left: NEYMAR :NEYMAR [id number] / Implanted: Qty: 1 on 01/22/2019 by Robert Lovell MD [employer] / Scr [address] 3.5x30mm Ss [id number] - [id number] IMPLANTS Left: NEYMAR :NEYMAR [id number] / Implanted: Qty: 1 on 01/22/2019 by Robert Lovell MD [employer] / Left Qls Plate Left: NEYMAR [id number] / Implanted: Qty: 1 on 01/22/2019 by Robert Lovell MD F [employer] / 3.5 X 45 Screw Left: NEYMAR [id number] / Implanted: Qty: 1 on 01/22/2019 by Robert Lovell MD F [employer] / Procedures Procedure Name Priority Date/Time Associated Diagnosis Comme nts VASCULAR DIAGRAM -SCAN 04/19/2019 12:00 PM CDT after 03/18/2019 Results VASCULAR DIAGRAM -SCAN (04/19/2019 12:00 PM CDT) Narrative Performed At This result has an attachment that is no t available. after 03/18/2019 Insurance Payer Benefit Plan / Group Subscriber ID Type Phone A [employer] ALL xxxxxxxx Maps Contracted Advance Directives Patient has advance care planning documents, and code status on file. For more information, please contact:[facility] [place] [address] [place]ash HardinSeav[place], [place] [phone] Code Status Date Activated Date Inactivated Comments Full Code 02/27/2019 11:49 PM 03/02/2019 8:37 PM This code status was determined by: Patient Full Code 02/01/2019 2:41 PM 02/14/2019 6:31 PM This code status was determined by: Patient Full Code 01/16/2019 4:41 PM 02/01/2019 2:41 PM This code status was determined by: Patient
--- OUTSIDE RECORDS SUMMARY | 2020-03-18 06:26 | XMS REPORT | Continuity of Care Document ---
:1950 Author Organization [facility] t Address [address] [place] [address] Care Team Providers Name Role Phone Magaly Vera MD Primary Care Physician Primo Victor MD Attending Clinician Sang, I Attending Clinician Petros Cevallos Attending Clinician Garry Attending Clinician Unavailable Lucita QUINONES Attending Clinician Unavailable Faiza Sheehan MD Attending Clinician Joe Attending Clinician Unavailable Miguelito Attending Clinician Unavailable Gabino Richards Attending Clinician Sim, Y Attending Clinician Unavailable System, Not In Attending Clinician Unavailable Jose HENNESSY Attending Clinician Unavailable KARL Attending Clinician Unavailable Sang, I Admitting Clinician WM CHILDERS Admitting Clinician Unavailable FABRICIO Admitting Clinician Unavailable Payers Payer Name Policy Type Policy Effective Expiration Source Number Date Date CIGNA xxxxxxxx 2016 [facility] esent[facility] CIGNA xxxxxxxx [facility] ALLxxxxxxxxMaps Contracted Problems Condition Condition Condition Status Onset Resolution Last Treating Co mments Source Name Details Category Date Date Treatment Clinician Date N/A Diagnosis Active 2020-01-29 [facility] oria 01-24 07:57:00 l N/A 00:00: Kwame 00 Active 01/25/2020 [facility] END STAGE Diagnosis [facility]01-30 [facility] RE[facility] 01-24 20:39:00 l DISEASE END 00:00: [place] STAGE 00 RENAL DISEASE Active 01/25/2020 [facility] N18.6 Diagnosis Active 2018-092019-08-31 [facility] oria 10-17 07:56:00 l N18.6 00:00: [place] 00 Active 08/16/2019 [facility] CHF CHF Disease Active 2018-[address] [facility] (congestiv (congestiv 0-21 [facility] - e heart e heart 00:00: t & Plan: Medic al failure) failure) 00 [facility] 2 in the last six months. She will require cardiolog y clearance prior to kidney transplan t. Pre-transp Pre-transp Disease Active 2018-[address] [facility] - evaluation evaluation 00:00: t & Plan: Medical for for 00 She is Center chronic chronic NOT an kidney kidney acceptabl disease disease e candidate for kidney transplan t due to her cardiac status and impaired mobility. We will reassess her when she is able to ambulate without assistanc e. OTHER Diagnosis Active 2019-05-29 [facility] oria 05-29 17:59:00 l OTHER 00:00: Kwame 00 Active 05/29/2019 [facility] Pelvic Pelvic Disease Active [facility] hematoma, hematoma, 6-26 [facility] [...] hematoma hematoma 00:00: Medica l 00 Center Essential Essential Disease Active Last [facility] hypertensi hypertensi 6-10 [facility] - on on 00:00: t & Plan: Medical 00 Blood Center pressure managemen t per cardiolog y or nephrolog y. Closed Closed Disease Active Last [facility] displaced displaced 5-20 Ass[facility] L [facility] - fracture fracture 00:00: t & Plan: Med ical of of 00 She has a Center anterior anterior history [...] 5-14 [facility] - 00:00: Medical 00 Center ESRD on ESRD on Disease Active Last [facility] hemodialys hemodialys Assessmen Real - is is t & Plan: Medical End stage Center renal disease secondary to DM/HTN. She has required dialysis since early 2018. Anemia Problem Resolve 2020-02-01 Pato jing (disorder) d 22:07:05 l Anemia Kwame (disorder) [facility] Resolve 2020-02-01 Mem oria kidney d 22:07:05 l disease Chronic [place] n (disorder) kidney disease (disorder) Resolved [facility] Diabetes Problem Resolve 2020-02-01 Me moria mellitus d 22:07:05 l (disorder) Diabetes He rmann mellitus (disorder) Resolved Problem 02/01/[facility] Glaucoma Problem Resolve 2020-02-01 Me moria (disorder) d 22:07:05 l Glaucoma [place] n (disorder) Resolved Problem [facility]/01/[facility] Heart Problem Resolve 2020-02-01 Pato jing murmur d 22:07:05 l (finding) Heart [place] n murmur (finding) Resolved Problem 02/01/[facility] Asthenia Problem Active 2020-02-01 Mem oria (finding) 22:07:05 l Asthenia [place] n (finding) Active Problem 02/01/2020 Temitope Zaman [facility] Dialysis Problem Active 2020-02-01 Mem oria finding 22:07:05 l (finding) Dialysis Her borden finding (finding) Active Problem 02/01/2020 Temitope Zaman [facility] Hypertensi Problem Active 2020-02-01 M emoria ve 22:07:05 l disorder, Kwame systemic Hypertensi arterial ve (disorder) disorder, systemic arterial (disorder) Active Problem 02/01/2020 Temitope Zaman [facility] End stage Problem Active 2020-02-01 Me moria renal 22:07:05 l failure on End Clinton n dialysis stage (disorder) renal failure on dialysis (disorder) Active Problem 02/01/2020 [facility] Hyperlipid Problem Active 2020-02-01 M emoria emia 22:07:05 l (disorder) [place] n Hyperlipid emia (disorder) Active Problem 02/01/2020 [facility] Injury of Problem Active 2020-02-01 Me moria buttock 22:07:05 l (disorder) Injury Herm faiza of buttock (disorder) Active Problem 02/01/2020 [facility] Wound of Problem Active 2020-02-01 Mem oria skin 22:07:05 l (disorder) Wound of He rmann skin (disorder) Active Problem 02/01/2020 right heel [facility] Cellulitis Problem 2018-2019-05-31 2019-05-31 Memoria of left 05-29 22:44:19 22:44:19 l lower limb 17:00: [place] n Cellulitis 00 of left lower limb 05/29/2019 05/31/2019 [facility] Allergies, Adverse Reactions, Alerts Allergy Allergy Status Severity Reaction(s) Onset Inactive Treating Comm ents Source Name Type Date Date Clinician Heparin Propensi Active Positive [facility] Analogue [facility] to [facility]10 heparin [facility] - s adverse 00:00: antibody; Medica l reaction 00 confirmat Cente r s orgerda KRYSTIN positive. [facility] 02-14-19 Diphenhy Propensi Active [facility] dramine ty to 6-02 [facility] - Hcl adverse 00:00: Medical reaction 00 Center s Codeine Drug Active Delirium [facility] Allergy 5-14 [facility] - 00:00: Medical 00 Center Meperidi Propensi Active Delirium [facility] ne ty to 5-14 [facility] - adverse 00:00: Medical reaction 00 Center s Morphine Propensi Active [address] ty to 5-14 [facility] - adverse 00:00: Medical reaction 00 Center s Tetracyc Propensi Active [facility] lines ty to 5-14 [facility] - adverse 00:00: Medical reaction 00 Center s Tetracyc Propensi Active Hives, 2016-09 [place] ty to Shortness Of 2-26 Meth carter adverse Breath 00:00: st reaction 00 s to drug codeine codeine Active Memoria l [place] tetracyc tetracyc Active Memori a line line l Kwame morphine morphine Active Moderate Pato jing <sup>1</ <sup>1</ l sup> sup> [place] Demerol Demerol Active Memoria l [place] Family History Family Member Diagnosis Comments Start Date Stop Date Source Natural father Diabetes [facility] Natural father Hypertension [facility] Natural mother Hypertension [facility] Natural sister No Known Problem [facility] Natural son No Known Problem [facility] Social History Social Habit Start Date Stop Date Quantity Comments Source History of tobacco Cigarette Smoker [place] use [employer] Exposure to Not sure [place] SARS-CoV-2 (event) Method ist History [facility] - Alcohol Std Drinks [facility] - Alcohol Binge Medical Jessie ter Sex Assigned At [facility] Cigarettes smoked 2020-02-19 2020-02-19 [place] current (pack per 00:00:00 00:00:00 Methodi ) - Reported Cigarette 2020-02-19 2020-02-19 [place] pack-years 00:00:00 00:00:00 Church Social History 2019-05-11 2019-05-11 [facility] Joelle arevalo 14:40:07 14:40:07 History SDOH 2019-02-28 2019-02-28 1 [facility] - Alcohol Frequency 00:00:00 00:00:00 Medical Center Tobacco Comment 2019-01-16 2019-01-16 Patient [facility] - 00:00:00 00:00:00 intubated/sedated [facility] Center , this is from family Smoking Status Start Date Stop Date Source Former smoker 2019-06-25 00:00:00 2019-06-25 00:00:00 [facility] Medications Ordered Filled Start Stop Current Ordering Indication Dosage Frequency Signature Comments Components Source Medication Medication Date Date Medication? Clinician (SIG) Name Name Acetaminoph Yes 1 tab, PO, Memoria en 325 MG / 5-27 Q6H, PRN l tramadol 19:11: Pain, # 30 Her borden hydrochlori 00 tab, 0 de 37.5 MG Refill(s), Oral Tablet given to [Ultracet] patient pregabalin Yes 25 mg = 1 Me moria 25 mg oral 5-27 cap, PO, l capsule 17:48: BID, # 60 Adela nn 00 cap, 0 Refill(s) pregabalin 2019-0 No 25 mg = 1 Me moria 25 mg oral 5-27 cap, PO, l capsule 17:46: BID, # 60 Adela nn 00 cap, 0 Refill(s) pregabalin 2019-0 No 25 mg = 1 Me moria 25 mg oral 5-27 cap, PO, l capsule 17:37: BID, # 60 Adela nn 00 cap, 0 Refill(s) Norvasc 0 No Notes: Memoria 5-27 (Same as: l 14:00: Norvasc) Kwame 00 Aspirin 81 No Notes: Do Me moria MG Enteric 5-27 not crush l Coated 14:00: or chew. [place] Tablet 00 (Same As: Ecotrin) Imdur No Notes: Memoria 5-27 (Same l 14:00: as:Imdur) Kwame 00 "Do Not Crush" Take on empty stomach/ full glass of water. Do not crush Lisinopril No Notes: Memor ia 5-27 (Same as: l 14:00: Prinivil, [place] 00 Zestril) NIFEdipine No Notes: Memor ia 90 mg oral 5-27 (Same as: l tablet, 14:00: Adalat [place] extended 00 CC,Procard release ia XL) "Do Not Crush" "Avoid grapefruit and grapefruit juice" atorvastati 2020-0 No Notes: Pato jing n - (Same as: l 02:00: Lipitor) Hydralazine No Notes: Pato jing Hydrochlori - (Same as: l de 50 MG 23:00: Apresoline Her borden Oral Tablet ) May interfere w/enteral feedings Take With Food Famotidine No Notes: Memor ia 20 MG Oral - (Same as: l Tablet 22:00: Pepcid) Lyrica No Notes: Memoria 5- (Same as: l 22:00: Lyrica) BD Normal 2019- No Notes: Memori a Saline - Same as: l Flush 21:13: BD Posiflush Sterile Sodium No 250 mL, Memoria Chloride 01-28 Route: l 0.9% IV 21:13: IVPB, Start date: 01/29/20 16:13:00 CDT, Duration: 30 day, Stop date: 02/28/20 16:12:00 CDT, PRN Line Flush, 0 Acetaminoph No 1,000 mg, M emoria en - Route: PO, l 16:25: Drug form: TAB, ONCE, Dosing Weight 49.091, kg, PRN Pain Score 1-3, Start date: 01/29/20 11:25:00 CDT Fentanyl 0 No Notes: Memoria - (Same as: l 16:25: Sublimaze) Preservat jenn free. Flumazenil No Notes: Memor ia - (Same as: l 16:25: Romazicon) Naloxone 2019-0 No Notes: Memoria 5- Same as l 16:25: Narcan Ondansetron No 4 mg, Memor ia - Route: l 16:25: IVP, ONCE, Dosing Weight 49.091, kg, PRN Nausea & Vomiting, Start date: 01/29/20 11:25:00 CDT Acetaminoph 2019-0 No Notes: Pato jing en 325 MG / - (Same as: l Hydrocodone 16:19: [place] Adela nn Bitartrate 00 325/5) Do 5 MG Oral not exceed Tablet 4gm/day of [[place] acetaminop 5/325] hen. Acetaminoph No Notes: Max Memoria en -26 acetaminop l 16:19: hen 4000 Kwame 00 mg/day (4 gm/day). (Same as: Tylenol Extra Strength) Clonidine No Notes: Memori a Hydrochlori - (Same As: l de 0.2 MG 16:16: Catapres) Her borden Oral Tablet 00 cyclobenzap No Notes: Pato jing rine - (Same As: l 16:16: Flexeril) Zofran No Notes: Memoria -26 (Same as: l 16:16: Zofran) propofol No Route: IV, Mem oria (ANES) 5-26 Drug form: l 15:22: INJ, ONCE, Stop date: 01/29/20 10:22:00 CDT vancomycin No Route: IV, M emoria (ANES) 1000 5- Drug form: l mg 14:55: INJ, Start date: 01/29/20 9:55:00 CDT, Stop date: 01/29/20 10:55:00 CDT Sodium No Route: IV, Memor ia Chloride -26 Total l 0.9% IV 14:50: Volume: [place] (ANES) 500 00 500, Start mL date: 01/29/20 9:50:00 CDT, Stop date: 01/29/20 10:50:00 CDT Vancomycin No 2000 mg: Me moria 5-26 infuse l 13:00: over 2.5 00 hours ondansetron No Route: IV, Memoria (ANES) 5-15 Drug form: l 14:43: INJ, ONCE, Stop date: 01/18/20 9:43:00 CDT Acetaminoph No Notes: Max Memoria en 5-15 acetaminop l 14:42: hen 4000 [place] 00 mg/day (4 gm/day). (Same as: Tylenol Extra Strength) Fentanyl No Notes: Memoria 5-15 (Same as: l 14:42: Sublimaze) Preservat jenn free. Flumazenil No Notes: Memor ia 5-15 (Same as: l 14:42: Romazicon) Naloxone No Notes: Memoria 5-15 Same as l 14:42: Narcan Ondansetron No Notes: Pato jing 5-15 (Same as: l 14:42: Zofran) MEDICATION WASTE Product Size: 4 mg Product Wasted: ___ mg glycopyrrol No Route: IV, Memoria ate (ANES) 5-15 Drug form: l 13:57: INJ, ONCE, Stop date: 01/18/20 8:57:00 CDT propofol No Route: IV, Mem oria (ANES) 5-15 Drug form: l 13:52: INJ, ONCE, Stop date: 01/18/20 8:52:00 CDT fentaNYL No Route: IV, Mem oria (ANES) 5-15 Drug form: l 13:42: INJ, ONCE, Stop date: 01/18/20 8:42:00 CDT vancomycin No Route: IV, M emoria (ANES) 1000 5-15 Drug form: l mg 13:05: INJ, Start date: 01/18/20 8:05:00 CDT, Stop date: 01/18/20 9:05:00 CDT Sodium 2019-0 No Route: IV, Memor ia Chloride 5-15 Total l 0.9% IV 13:02: Volume: Kwame (ANES) 500 00 500, Start mL date: 01/18/20 8:02:00 CDT, Stop date: 01/18/20 9:02:00 CDT Vancomycin 2019-0 No 2001 mg: Me moria 5-15 infuse l 13:00: over 2.5 hours For adult patients only: Round to nearest 250 mg per Medical Staff approval MEDICATION WASTE Product Size: 1000 mg Product Wasted: ___ mg tramadol 2018-09 No 50 mg, 1 Memor ia hydrochlori 2-27 tab, l de 50 MG 18:59: Route: PO, Her borden Oral Tablet 00 Drug form: TAB, ONCE, Dosing Weight 49.091, kg, Start date: 08/31/19 12:59:00 [employer], Stop date: 08/31/19 12:59:00 [employer] Hydralazine 2018-09 No Notes: Pato jing 2- (Same as: l 18:12: Apresoline Kwame 00 ) Push over 5 minutes Acetaminoph 2018-09 No Notes: Max Memoria en - acetaminop l 18:12: hen 4000 Kwame 00 mg/day (4 gm/day). (Same as: Tylenol Extra Strength) Fentanyl 2018-09 No Notes: Memoria 2- (Same as: l 18:12: Sublimaze) [place] 00 Preservat jenn free. Flumazenil 2018-09 No Notes: Memor ia 2- (Same as: l 18:12: Romazicon) [place] 00 Naloxone 2018-09 No Notes: Memoria 2-27 Same as l 18:12: Narcan Kwame 00 Ondansetron 2018-09 No Notes: Pato jing 2- (Same as: l 18:12: Zofran) [place] 00 MEDICATION WASTE Product Size: 4 mg Product Wasted: ___ mg Promethazin 2018-09 No Notes: Do M emoria e 2- not give l 18:12: IV push. Kwame 00 (Same as: Phenergan) 72 HR 2018-09 Yes Notes: Memoria Scopolamine 2- Change l 0.0139 18:12: patch [place] MG/HR 00 every 72 Transdermal hours Patch (Same as: Transderm- Scop) Insulin 2018-09 No Notes: Memoria Lispro 2- (Same as: l 18:12: Humalog) 00 Roll in palms of hands gently; Do not shake vigorously . WASTE: F/P - Black; E - Municipal Trash Bin Stable for 28 days at room temperatur e. Expires in days from ____Date fentaNYL 2018-09 No Route: IV, Mem oria (ANES) 2- Drug form: l 17:29: INJ, ONCE, Stop date: 08/31/19 11:29:00 [employer] dexamethaso 2018-09 No Route: IV, Memoria ne (ANES) 11-01 Drug form: l 17:03: INJ, ONCE, Stop date: 08/31/19 11:03:00 [employer] metoclopram 2018-09 No Route: IV, Memoria robin (ANES) 11-01 Drug form: l 17:03: INJ, ONCE, Stop date: 08/31/19 11:03:00 [employer] fentaNYL 2018-09 No Route: IV, Mem oria (ANES) 11-01 Drug form: l 17:03: INJ, ONCE, Stop date: 08/31/19 11:03:00 [employer] propofol 2018-09 No Route: IV, Mem oria (ANES) 11-01 Drug form: l 17:03: INJ, ONCE, Stop date: 08/31/19 11:03:00 [employer] phenylephri 2018-09 No Route: IV, Memoria ne (ANES) 11-01 Drug form: l 17:03: INJ, ONCE, Stop date: 08/31/19 11:03:00 [employer] lidocaine 2018-09 No Route: IV, Me moria (ANES) 11-01 Drug form: l 16:58: INJ, ONCE, Stop date: 08/31/19 10:58:00 [employer] vancomycin 2018-09 No Route: IV, M emoria (ANES) 1000 11-01 Drug form: l mg 16:25: INJ, Start date: 08/31/19 10:25:00 [employer], Stop date: 08/31/19 11:25:00 [employer] Sodium 2018-09 No Route: IV, Memor ia Chloride 11-01 Total l 0.9% IV 16:20: Volume: [place] (ANES) 500 00 500, Start mL date: 08/31/19 10:20:00 [employer]ER, Stop date: 08/31/19 11:20:00 [employer] Ascorbic 2018- Yes 1 tab, PO, Mem oria Acid 60 MG - Daily, 0 l / Calcium 14:39: Refill(s) [...] tab, PO, l tablet 14:38: Daily, 0 00 Refill(s) NIFEdipine 2018-09 Yes 90 mg = 1 Me moria 90 mg oral 2-27 tab, PO, l tablet, 14:32: Daily, 0 [place] n extended 00 Refill(s) release Vancomycin 2018-09 No 2001 mg: Me moria 2-27 infuse l 13:00: over 2.5 hours For adult patients only: Round to nearest 250 mg per Medical Staff approval MEDICATION WASTE Product Size: 1000 mg Product Wasted: ___ mg Keflex No Notes: Memoria 05-30 Take on l 02:26: empty stomach. (Same As: Keflex) Cephalexin Yes 500 mg = 1 M emoria 500 MG Oral 05-30 cap, PO, l Capsule 02:20: QID, X 7 Clinton n [Keflex] 00 day, # 28 cap, 0 Refill(s) Tramadol No 50 kg, Memori a 05-29 Priority: l 23:46: STAT, Start date: 05/29/19 18:46:00 CDT, Stop date: 05/29/19 18:46:00 CDT Ondansetron Yes Notes: Pato jing 05-11 (Same as: l 17:55: Zofran) MEDICATION WASTE Product Size: 4 mg Product Wasted: ___ mg propofol No Route: IV, Mem oria (ANES) 05-11 Drug form: l 15:27: INJ, ONCE, Stop date: 05/11/19 10:27:00 CDT lidocaine No Route: IV, Me moria (ANES) 05-11 Drug form: l 15:27: INJ, ONCE, Stop date: 05/11/19 10:27:00 CDT vancomycin 2018-0 No Route: IV, M emoria (ANES) 1000 05-11 Drug form: l mg 14:46: INJ, Start [place] 00 date: 05/11/19 9:46:00 CDT, Stop date: 05/11/19 10:46:00 CDT Sodium 2018-0 No Route: IV, Memor ia Chloride 05-11 Total l 0.9% IV 14:41: Volume: Kwame (ANES) 500 00 500, Start mL date: 05/11/19 9:41:00 CDT, Stop date: 05/11/19 10:41:00 CDT lidocaine 2018- Yes 1 patch, Pato jing 1.8% 05-11 TOP, l topical 13:32: Daily, 0 Clinton n film 00 Refill(s) metoprolol Yes 50 mg, PO, M emoria tartrate 05-11 Q12H, 0 l 13:31: Refill(s) Kwame 00 Famotidine Yes 20 mg = 1 Me moria 20 MG Oral 05-11 tab, PO, l Tablet 13:31: BID, 0 [place] 00 Refill(s) cyclobenzap Yes 5 mg = 1 Me moria rine 5 mg -06 tab, PO, l oral tablet 13:30: Q8H, PRN He rmann 00 Spasm, 0 Refill(s) Vancomycin 2018- No 2001 mg: Me moria -06 infuse l 12:00: over 2.5 Kwame 00 hours For adult patients only: Round to nearest 250 mg per Medical Staff approval MEDICATION WASTE Product Size: 1000 mg Product Wasted: ___ mg Hydralazine 2018- Yes 50 mg = 1 M emoria Hydrochlori 9-05 tab, PO, l de 50 MG 21:16: Q6H, 0 Kwame Oral Tablet 00 Refill(s) Amlodipine 0 Yes 10 mg = 1 Me moria 10 MG Oral 9-05 tab, PO, l Tablet 21:16: Daily [place] [Norvasc] 00 Ondansetron 2018-0 Yes 4 mg = 1 Me moria 4 MG Oral 9-05 tab, PO, l Tablet 21:16: PRN, PRN [place] [Zofran] 00 Nausea/Vom iting, 0 Refill(s) cyclobenzap No 10 mg = 1 M emoria rine 10 mg 9-05 tab, PO, l oral tablet 21:15: PRN, PRN [place] 00 for spasms, 0 Refill(s) lisinopril Yes 40 mg = 1 Me moria 40 mg oral 9-05 tab, PO, l tablet 21:14: Daily, 0 [place] 00 Refill(s) Imdur 30 mg 2019 Yes 30 mg = 1 M emoria [...] Oral Tablet 00 Pain, 0 Refill(s) calcium Yes 2,001 mg = Pato jing acetate 667 9-05 3 tab, PO, l MG Oral 21:12: TID, 0 Kwame Tablet 00 Refill(s) Aspirin 81 2018- Yes 81 mg = 1 Me moria MG Enteric 9-05 tab, PO, l Coated 21:11: Daily Kwame Tablet 00 atorvastati Yes 40 mg = 1 M emoria n 40 mg 9-05 tab, PO, l oral tablet 21:11: Bedtime, 0 Kwame 00 Refill(s) cloNIDine Yes high blood .2mg Take 0.[address] [facility] HCl 6-26 pressure mg by [facility] - (CATAPRES) 02:59: mouth Medica l 0.2 MG 15 every 8 Center tablet (eight) hours as needed. traMADol Yes 50mg Take [address] [facility] (ULTRAM) 50 6-26 by mouth Luke s - mg tablet 02:43: every 6 Medic al 22 (six) Center hours as needed for Pain. lisinopril Yes high blood 40mg QD Take [address] [facility] (PRINIVIL,Z 6-26 pressure by mouth [facility] - ESTRIL) 40 02:42: daily. Medic al [...] QD Take [address] [facility] MG chewable 6-15 02-12 tablet (81 L ukes - tablet 00:00: 23:59 mg total) Medic al 00 :00 by mouth Center daily. metoprolol 2019- No 50mg Q.5D Take [address] [address] (LOPRESSOR) 02-14- tablet (50 L ukes - 50 MG 00:00: 23:59 mg total) Medica l tablet 00 :00 by mouth 2 Center (two) times daily. atorvastati 2020- No 40mg QD Take [address] [facility] [address] n (LIPITOR) -08 10-11 tablet (40 L ukes - 40 MG 00:00: 23:59 mg total) Medica l tablet 00 :00 by mouth Center nightly. calcium Yes 667mg Take 667 [facility] acetate 5-14 mg by [facility] - (PHOSLO) 17:01: mouth 3 Medica l 667 mg 38 (three) Center capsule times daily with meals. hydrALAZINE 2016-09 Yes 25mg [id number] Take 25 mg [place] (APRESOLINE 2-26 [id number] by mouth 3 Methodi ) 25 MG 13:32: 3D (three) st tablet 53 times a day. travoprost 2016-09 Yes 1[drp] QD Administer [facility] (TRAVATAN-Z 2-26 1 drop to Met hodi ) 0.004 % 13:32: both eyes st 53 nightly. brimonidine 2016-09 Yes 1[drp] Q12H Administer [place] -timolol 2- 1 drop to Method i (COMBIGAN) 13:32: both eyes st 0.2-0.5 % 53 every 12 ophthalmic (twelve) solution hours. furosemide 2016-09 Yes 80mg QD Take 80 mg [place] (LASIX) 80 2- by mouth Metho di mg tablet 13:32: daily. st 52 SPIRONOLACT 2016-09 Yes 75mg Take 75 mg [place] ONE ORAL 2- by mouth Methodi 13:32: daily. st 52 Vital Signs Vital Name Observation Time Observation Value Comments Source Temperature Oral (F) 2020-01-30 20:08:00 97.6 F [facility] [place] Heart Rate 2020-01-30 20:08:00 [facility] [place] Respitory Rate 2020-01-30 20:08:00 Memori al [place] Systolic (mm Hg) 2020-01-30 20:08:00 Pato rial [place] Diastolic (mm Hg) 2020-01-30 20:08:00 Mem orial [place] Temperature Oral (F) 2020-01-30 16:05:00 97.7 F [facility] Heart Rate 2020-01-30 16:05:00 [facility] [place] Respitory Rate 2020-01-30 16:05:00 Memori al [place] Systolic (mm Hg) 2020-01-30 16:05:00 Pato rial [place] Diastolic (mm Hg) 2020-01-30 16:05:00 Mem orial [place] Heart Rate 2020-01-30 13:01:00 [facility] [place] Respitory Rate 2020-01-30 13:01:00 Memori al [place] Systolic (mm Hg) 2020-01-30 13:01:00 Pato rial [place] Diastolic (mm Hg) 2020-01-30 13:01:00 Mem orial [place] Temperature Oral (F) 2020-01-30 09:00:00 98.2 F [facility] [place] Height 2020-01-29 12:55:00 [facility] Calculated 2020-01-29 12:55:00 Memori al [place] Respitory Rate 2020-01-18 16:00:00 Memori al [place] Systolic (mm Hg) 2020-01-18 16:00:00 Pato rial [place] Diastolic (mm Hg) 2020-01-18 16:00:00 Mem orial [place] Respitory Rate 2020-01-18 15:45:00 Memori al [place] Systolic (mm Hg) 2020-01-18 15:45:00 Pato rial [place] Diastolic (mm Hg) 2020-01-18 15:45:00 Mem orial [place] Respitory Rate 2020-01-18 15:30:00 Memori al [place] Systolic (mm Hg) 2020-01-18 15:30:00 Pato rial [place] Diastolic (mm Hg) 2020-01-18 15:30:00 Mem orial [place] Height 2020-01-18 12:57:00 170.18 cm [facility] [place] Weight 2020-01-18 12:57:00 [facility] [place] BMI Calculated 2020-01-18 12:57:00 Memori al [place] Temperature Oral (F) 2020-01-18 12:55:00 98 F [facility] [place] Height 2020-01-17 15:08:00 170.18 cm [facility] [place] Weight 2020-01-17 15:08:00 [facility] BMI Calculated 2020-01-17 15:08:00 Memori al [place] Respitory Rate 2019-08-31 19:00:00 Memori al [place] Systolic (mm Hg) 2019-08-31 19:00:00 Pato rial [place] Diastolic (mm Hg) 2019-08-31 19:00:00 Mem orial [place] Respitory Rate 2019-08-31 18:45:00 Memori al [place] Systolic (mm Hg) 2019-08-31 18:45:00 Pato rial [place] Diastolic (mm Hg) 2019-08-31 18:45:00 Mem orial [place] Respitory Rate 2019-08-31 18:30:00 Memori al [place] Systolic (mm Hg) 2019-08-31 18:30:00 Pato rial [place] Diastolic (mm Hg) 2019-08-31 18:30:00 Mem orial [place] Temperature Oral (F) 2019-08-31 14:30:00 98 F [facility] [place] Height 2019-08-31 14:00:00 170.18 cm [facility] [place] Weight 2019-08-31 14:00:00 [facility] BMI Calculated 2019-08-31 14:00:00 [facility]ori al [place] Height 2019-08-27 14:21:00 170.18 cm [facility] Weight 2019-08-27 14:21:00 [facility] [place] BMI Calculated 2019-08-27 14:21:00 Memori al [place] Systolic blood 2019-06-25 11:06:00 160 mm[Hg] [facility] Diastolic blood 2019-06-25 11:06:00 65 mm[Hg] [facility] Heart rate 2019-06-25 11:06:00 72 /min [place] [facility] Body temperature 2019-06-25 11:06:00 36.61 [facility] Respiratory rate 2019-06-25 11:06:00 16 /min [facility] Body height 2019-06-25 11:06:00 167.6 cm [facility] Body weight Measured 2019-06-25 11:06:00 50.803 kg [facility] BMI 2019-06-25 11:06:00 18.08 kg/m2 [facility] Systolic (mm Hg) 2019-05-30 04:38:00 [facility] [place] Diastolic (mm Hg) 2019-05-30 04:38:00 [facility] Systolic (mm Hg) 2019-05-30 02:31:00 [facility] [place] Diastolic (mm Hg) 2019-05-30 02:31:00 [facility] [place] Systolic (mm Hg) 2019-05-30 02:14:00 [facility] [place] Diastolic (mm Hg) 2019-05-30 02:14:00 [facility] Heart Rate 2019-05-29 21:33:00 [facility] Respitory Rate 2019-05-29 21:33:00 [facility] Temperature Oral (F) 2019-05-29 21:33:00 97.9 F [facility] Weight 2019-05-29 21:33:00 [facility] Respitory Rate 2019-05-11 18:15:00 [facility] Systolic (mm Hg) 2019-05-11 18:15:00 [facility] Diastolic (mm Hg) 2019-05-11 18:15:00 [facility] [place] Respitory Rate 2019-05-11 18:00:00 [facility] Systolic (mm Hg) 2019-05-11 18:00:00 [facility] [place] Diastolic (mm Hg) 2019-05-11 18:00:00 [facility] Respitory Rate 2019-05-11 17:45:00 [facility] Systolic (mm Hg) 2019-05-11 17:45:00 [facility] [place] Diastolic (mm Hg) 2019-05-11 17:45:00 [facility] Height 2019-05-11 12:30:00 170.18 cm [facility] Weight 2019-05-11 12:30:00 [facility] BMI Calculated 2019-05-11 12:30:00 [facility] Temperature Oral (F) 2019-05-11 12:00:00 98.1 F [facility] Height 2019-05-10 21:05:00 170.18 cm [facility] Weight 2019-05-10 21:05:00 [facility] BMI Calculated 2019-05-10 21:05:00 [facility] Procedures Procedure Date / Time Performing Clinician Source Performed VASCULAR DIAGRAM -SCAN 2019-04-19 12:00:39 Provider, Default [facility] Append[facility] Cataract extraction and [facility] insertion of intraocular lens [facility]aucoma surgery [facility] ORIF - Open reduction and [facility] internal fixation of fracture AV - Creation of [facility] arteriovenous fistula<sup>1</sup> Plan of Care Planned Activity Planned Date Details Comments Source Future Scheduled 2020-05-06 INFLUENZA VACCINE (#1) [facility]:00 [code = INFLUENZA Medical Ce nter VACCINE (#1)] Future Scheduled 2020-04-05 INFLUENZA VACCINE [facility] 00:00:00 [code = INFLUENZA VACCINE] Future Scheduled 2019-09-[address] [facility] 00:00:00 WELLNESS (YEAR 2 or Medical Center FIRST YEAR if no IPPE) [code = MEDICARE ANNUAL WELLNESS (YEAR 2 or FIRST YEAR if no IPPE)] Future Scheduled 2019-07-[address] [facility] Test 00:00:00 [facility] Center (procedure) [code = 24217568] Future Scheduled 2017-11-07 PNEUMOCOCCAL [address] Test 00:00:00 HIGH/HIGHEST RISK (2 Medical Center of 2 - PCV13) [code = PNEUMOCOCCAL 65+ HIGH/HIGHEST RISK (2 of 2 - PCV13)] Future Scheduled 2013 65+ PNEUMOCOCCAL [facility] Test 00:00:00 VACCINE (1 of 2 - PCV13) [code = 65+ PNEUMOCOCCAL VACCINE (1 of 2 - PCV13)] Future Scheduled 1998 BREAST CANCER [facility] 00:00:00 SCREENING [code = BREAST CANCER SCREENING] Future Scheduled 1998 COLONOSCOPY SCREENING [place] [facility] 00:00:00 [code = COLONOSCOPY SCREENING] Future Scheduled 1998 SHINGLES VACCINES (#1) [place] [facility] Test 00:00:00 [code = SHINGLES VACCINES (#1)] Future Scheduled 1958 DIABETIC FOOT EXAM [place] [facility] 00:00:00 [code = DIABETIC FOOT EXAM] Future Scheduled 1958 URINE MICROALBUMIN [facility] [facility] 00:00:00 [code = URINE MICROALBUMIN] Future Scheduled 1958 DIABETIC EYE EXAM [facility] Test 00:00:00 [code = DIABETIC EYE Medical Center EXAM] Future Scheduled [address] Test 00:00:00 examination Medical Center (regime/therapy) [code = 674435633] Future Scheduled 1958 Urine screening for [facility] Test 00:00:00 protein (procedure) Medical Center [code = 062409654] Future Scheduled 1948 DIABETIC RETINAL EYE [facility] 00:00:00 EXAM [code = DIABETIC RETINAL EYE EXAM] Future Scheduled [address] [facility] Test 00:00:00 malignant neoplasm of [facility] breast (procedure) [code = 252622787] Future Scheduled [address] [facility] Test 00:00:00 malignant ne[facility] colon (procedure) [code = 864464941] Encounters Start End Encounter Admission Attending Care Care Encounter Source Date/Time Date/Time Type Type Clinicians Facility Department ID 2019-11-21 Outpatient [facility] [id number] MH 08:45:42 2020-02-19 2020-02-19 Outpatient [facility] [id number] [place] 00:00:00 00:00:00 MARKIE 69Artemio [facility] 2020-01-29 2020-01-30 [id number] 11:08:00 15:30:00 Donald Leija 05 2020-01-29 2020-01-29 Inpatient [facility] [id number] [facility] 11:08:00 07:47:00 2020-01-18 2020-01-18 [id number] 07:17:00 11:05:00 Chao 04 [facility] 2020-01-18 2020-01-18 Outpatient [facility] SW [id number] [facility] 07:17:00 07:17:00 2019-08-31 2019-08-31 Outpatient Ban, [facility] [id number] 07:55:00 13:25:00 Chao 02 [facility] 2019-08-31 2019-08-31 Outpatient [facility] [id number] SW 07:55:00 07:55:00 2019-05-29 2019-05-29 Outpatient Kinzler, [address] [id number] 16:31:20 23:40:00 Jomar Lloyd 2019-05-29 2019-05-29 Emergency E [facility]BL [facility] [id number] [facility]BL 16:31:00 16:31:00 2019-05-11 2019-05-11 Outpatient Ban, [facility] [id number] 06:00:00 13:21:00 Chao 00 [facility] 2019-05-11 2019-05-11 Outpatient [facility] [id number] [facility] 06:00:00 06:00:00 Results Test Description Test Time [...] (test code = PT) 13.1 s 12.0-14.7 [facility] UlatapuFQXLMUFLCG7632-08-96 10:19:00 Test Item Value Reference Range Interpretation Comments INR (test code = INR) 0.99 1 0.85-1.17 [facility] MoyvszqMZCPCOEPEL3161-14-60 10:19:00 Test Item Value Reference Range Interpretation Comments PTT (test code = PTT) 30.1 s 22.9-35.8 [facility] YhlfvdoIVNGJTUAWN4269-00-17 10:19:005.6[facility]OLOG[facility] 2020-01-30 10:19:003.02[facility] NwmkmymQLFUBPEOJW3419-79-81 10:19:0010.2[facility] WgdjmwhFUBKMXATCL2113-38-12 10:19:0030.5[facility] JqgpgqrLCWHLREZEP0334-73-59 10:19:39232.2[facility] GidoydfDZPVLNOHPR5325-53-55 10:19:00 Test Item Value Reference Range Interpretation Comments MCH (test code = MCH) 33.9 pg 27.0-31.0 [facility] CfvlqoeZBVBHUCZXZ7637-80-30 10:19:0033.5[facility] HermannHEMATOLOGY 2020-01-30 10:19:0017.1[facility] SkufknuUEMBGHJKGD6562-35-13 10:19:55374Pzzehwvb JzmotkeQAAZRRDACZ1977-82-83 10:19:008.1[facility] LwsecsiHKHAFLOCDM7910-67-62 10:19:0072.4[facility] UgyfblxNREGLRPMYG2234-20-60 10:19:0013.3[facility] MULPGTWESV2199-72-69 10:19:0010.3[facility] AebzxglESHUWNZAZY6688-68-79 10:19:00 3.5[facility] ZciwzafVOSXZKYZPD7083-21-11 10:19:000.5[facility] HermannHEMATOLOGY 2020-01-30 10:19:004.1[facility] DllvmduMUYVCUDGXG0101-34-81 10:19:000.7[facility] TcdgpaaBOIYTYVBXN1361-19-60 10:19:000.6[facility] JpplmiuMRRADHIHHX0755-60-30 10:19:000.2[facility] ElhiuwaDVOWHJVOMH1363-08-29 18:09:00Negative *NA*(01/29/20 1:09 PM)[facility] VmqrznkOJKBQPCBKM9782-78-71 18:09:00Negative *NA*(01/29/20 1:09 PM)[facility]annBLOOD BANK LJDIOGE9717-40-33 13:57:00Negative (01/29/20 8:57 AM)[facility]annCHEM SYUTJ7549-01-89 13:38:009[facility] HermannCHEM PANEL 2020-01-29 13:38:71552Ioomkmbt HermannCHEM MGNRA6679-51-05 13:38:003.9[facility] HermannCHEM AGCDS1398-49-31 13:38:25273Macchpfn HermannCHEM YPYXX0265-81-54 13:38:0027[facility] HermannCHEM DNLQN7908-61-44 13:38:0021[facility] HermannCHEM KELYG8477-17-27 13:38:004.4[facility]annCHEM KVYCV0534-49-87 13:38:65533 [facility]annCHEM FZXGN3583-19-38 13:38:001.33[facility] HermannCHEM PANEL 2020-01-29 13:38:0010.2[facility] HermannCHEM KCPCA2130-66-12 13:38:0030.0[facility] HermannCHEM WMXVG5622-68-98 13:38:0015.0[facility] HermannCHEM UULPM6087-82-38 13:38:00See Note *NA*(01/29/20 8:38 AM)[facility] RwjplsfIUDFEVTCGSQQ1367-73-72 12:42:05417Flxbkiji LnuwuspIEUELONCSOMT4788-46-51 12:42:003.7[facility] CNMXNOYXQUSY0065-71-60 12:42:43872Hwxwylrx SxutiuxNMSKNXPDFNPX7671-84-04 12:42:0027[facility] XzfiecdJDEEFGQODLAB2065-52-23 12:42:0014[facility] DRUKLPJEZTTX5342-91-83 12:42:002.5[facility] KkiqlklNXXSXRITETDX1276-15-89 12:42:0076[facility] BnirsymSXYQYTARVZBM8555-79-83 12:42:001.31[facility] UIIIWHUVJFTO3680-61-51 12:42:0010.9[facility] UymjzplMIBKJDYPALSD4874-92-44 12:42:0032.0[facility] VxmwvdaGWHPRWPFPNVH9507-51-77 12:42:0016.0[facility] RVPXFFKRPNMV4862-72-75 12:42:0019[facility] KpxfsukRVTHRKUEVXJQ3597-98-64 12:42:00 See Note *NA*(01/18/20 7:42 AM)[facility] NlrglmaAKRQFETGKT6326-40-94 16:54:00Not Detected (01/16/20 11:54 AM)[facility] AgowvjvFSJZHSPDHTIZ2643-27-53 22:19:0011.0 [facility] LlmaegwOFBOYAJQCYFO0868-69-93 22:19:05685Ltpgyqyd HermannELECTROLYTES 2019-05-29 22:19:0027[facility] VoltjvuKHYZISWMAXZY2275-35-48 22:19:002.44[facility] LronduoHDKQYMEGIDTK8429-75-97 22:19:74953Iftujetu QytamaaYOTCIJQSMVJJ8120-82-58 22:19:004.0[facility] UkcrntoYBMAVVQXIXUN8829-88-00 22:19:61078Ppgeipxp [facility] RRSJIGOBLEAR0389-30-02 22:19:0028[facility] QnnxowwCSJILQJIBBTJ7031-50-77 22:19:00 8.6[facility] OopmrmjVJAEYWWYNAWQ0996-74-68 22:19:0022[facility] HermannHEMATOLOGY 2019-05-29 22:19:007.7[facility] FiminznKQIPIZMABJ4179-00-54 22:19:002.84[facility] KnjvnjrBVUNUCFZNH0018-09-54 22:19:009.1[facility] EtvsjquUJIDUJPXTJ5155-32-70 22:19:0027.0[facility] ObaocvmRKSIINHJKP4100-32-02 22:19:0095.1[facility] ZJFAGTZPGS4135-87-28 22:19:00 Test Item Value Reference Range Interpretation Comments MCH (test code = MCH) 32.2 pg 27.0-31.0 [facility] RegawzwCUMLKBJRGG6110-61-53 22:19:0033.8[facility] HermannHEMATOLOGY 2019-05-29 22:19:0017.8[facility] QaooxxxPRSFYOYVWJ3538-84-80 22:19:61054Vfnbfjeu YsmladjBQXOCQKORI5241-61-72 22:19:007.6[facility] PtihefuXNMUUIASAC4403-65-05 22:19:00 Test Item Value Reference Range Interpretation Comments PT (test code = PT) 13.0 s 12.0-14.7 [facility] OaabmfbPWUQRRBFLP9042-41-70 22:19:00 Test Item Value Reference Range Interpretation Comments INR (test code = INR) 1.00 1 0.85-1.17 [facility]GETDPDMREQ5368-66-58 22:19:00 Test Item Value Reference Range Interpretation Comments PTT (test code = PTT) 36.9 s 22.9-35.8 [facility] CenterShvhskbKCFXABYUJR4414-12-22 22:19:0071.9[facility] HermannHEMATOLOGY 2019-05-29 22:19:009.3[facility] HwngugvXMRNXQCUNW3357-43-11 22:19:0010.4[facility] BodwbneIAGLUDOGWL6331-35-77 22:19:007.6[facility] ItayagkRNJRTZTJYQ8711-70-12 22:19:000.8[facility] CelzvsmWBAPVIELIO1949-44-00 22:19:005.5[facility] VOYIMETVXL2721-69-64 22:19:000.7[facility] DklfflzFHOUTDENAQ9438-76-53 22:19:000.8 [facility] UsseijjLPGJAZGSIW3586-36-67 22:19:000.6[facility] HermannHEMATOLOGY 2019-05-29 22:19:000.1[facility] EhqlmytKNBYACHXQKKC2158-04-44 11:43:41045Vnipydjt PhhsozfTPRJSYDMQXSE0065-44-94 11:43:004.4[facility] BifxvkoKBNJDPQWTCVG5562-63-45 11:43:30152Vkqyualq LdzdkevSVZHMBLHNCJK4275-96-55 11:43:0027[facility] DGOTESMZNDTZ6739-01-82 11:43:0027[facility] DjtakhaHCJIOBFTCFUN9521-58-55 11:43:00 2.9[facility] OpojwpvRLWDUDUFCLKQ6732-23-93 11:43:91456Vtziatoy [facility] VYYOBHLIVHPZ4362-43-53 11:43:001.30[facility] GedsnrjEJWDOHJSYIQW2142-46-22 11:43:0010.2[facility] AqnxmllCUZSQPSXUNLJ7814-63-49 11:43:0030.0[facility] ALJANBNODDGS7905-15-48 11:43:0014.0[facility] BmpsyxgHWOCEFFXGGSH3009-74-74 11:43:0018[facility] HermannCHEM UYJUG3788-80-63 11:38:64521Jwkauxah HermannCHEM UIEIJ6114-43-43 11:38:0029[facility] HermannCHEM YDEHK9728-58-51 11:38:002.80 [facility]annCHEM YFSJJ7375-44-60 11:38:91451Gvqbkbew HermannCHEM PANEL 2019-05-11 11:38:004.3[facility] HermannCHEM MDVWL4429-14-61 11:38:88814Auybapqm HermannCHEM ZFRXM6979-18-49 11:38:0028[facility] HermannCHEM BGJGM4154-47-88 11:38:009.9[facility] HermannCHEM TAZNX3061-32-42 11:38:0019[facility] HermannCHEM MFMTC9102-38-19 11:38:0013.3[facility] UhshxhgVCKXERRTZK5799-33-30 11:38:0072.7 [facility] HhwlmlxTVIPNVYLRJ3035-06-42 11:38:0010.4[facility] HermannHEMATOLOGY 2019-05-11 11:38:009.1[facility] MkophhtNXOKAVAEMB4204-94-06 11:38:007.3[facility] TphsyckSOFTMXURSM5886-43-60 11:38:000.5[facility] EdhwcnkFZAQLCWMYD7422-31-04 11:38:004.5[facility] ExfpnqmPHFBNYXJIO7911-82-29 11:38:000.6[facility] BMAMWNCSVK7248-18-47 11:38:000.6[facility] PhpihkiNOSCNJTTXX6918-79-01 11:38:000.5 [facility] KefnqvuREWALFMVHT1698-35-15 11:38:006.2[facility] HermannHEMATOLOGY 2019-05-11 11:38:003.03[facility] YoqvtkkQWSIDMQBAH2600-03-34 11:38:009.5[facility] SeuesceQVMBUYVTFS0360-23-35 11:38:0029.8[facility] ZrxolhiSISSSBNTVJ0324-45-37 11:38:0098.2[facility] MpknqejUEWUGHRZGK8046-30-05 11:38:00 Test Item Value Reference Range Interpretation Comments MCH (test code = MCH) 31.4 pg 27.0-31.0 [facility] OdgitdnIYQDUEHLJH9051-48-11 11:38:0032.0[facility] HermannHEMATOLOGY 2019-05-11 11:38:0017.2[facility] GluneuwJOXQRCNIZD2394-41-93 11:38:19815Eslmcwzs FeekfenCEQYYDJHDT2877-58-61 11:38:008.3[facility] GdveuvmWMNTJBJJHH0510-35-85 11:38:00 Test Item Value Reference Range Interpretation Comments INR (test code = INR) 1.03 1 0.85-1.17 [facility] TxlsfxgPWRZZDWFWE6165-12-08 11:38:00 Test Item Value Reference Range Interpretation Comments PT (test code = PT) 13.3 s 12.0-14.7 [facility] PaifktrSYNJMKAHUF8529-68-34 11:38:00 Test Item Value Reference Range Interpretation Comments PTT (test code = PTT) 35.0 s 22.9-35.8 [facility] + DQXRG3880-24-11 13:51:00 Test Item Value Reference Range Interpretation Comments CULTURE (BEAKER) (test No acid-fast bacilli code = 1095) isolated in 42 days AFB SMEAR (BEAKER) No acid fast bacilli (test code = 994) seen FUNGUS CULTURE + [id number] 09:38:00 Test Item Value Reference Range Interpretation Comments CULTURE (BEAKER) (test No fungus isolated in code = 1095) 28 days FUNGUS SMEAR (BEAKER) No fungi seen (test code = 1406) SURGICALLY OBTAINED CULTURE + GRAM HLOAG5023-05-41 10:25:00 Test Item Value Reference Interpretation Comments [...] No organisms seen (BEAKER) (test code = 206092) ANAEROBIC HIXMDWN3376-01-46 02:58:00 Test Item Value Reference Range Interpretation Comments CULTURE (BEAKER) (test No anaerobes isolated code = 1095) HEMOGLOBIN AND KSAHEEGUOK6429-13-48 10:32:00 Test Item Value Reference Range Interpretation Comments HEMOGLOBIN (BEAKER) (test code = 7.6 GM/DL 11.2-15.7 L 410) HEMATOCRIT (BEAKER) (test code = 24.9 % 34.1-44.9 L 411) BASIC METABOLIC [id number] 06:01:00 Test Item Value Reference Range Interpretation [...] PATIEN TS. RAD, PELVIS, 1 OR 2 [id number] 11:58:00Reason for exam:->follow up for pelvis ORIFFINAL [...] MDReport Verified Date/Time: 03/01/2019 11:58:06 [facility] ReadingRoom /CONCENTRATION CNMERG1503-38-30 11:09:00 Test Item Value Reference Range Interpretation Comments CONCENTRATION CHARGED (BEAKER) (test Done code = 2657) BASIC METABOLIC [id number] 07:44:00 Test Item Value Reference Range Interpretation [...] FOR DIALYSIS PATIEN TS. HEPATITIS B SURFACE [id number] 07:29:00 Test Item Value Reference Range Interpretation Comments HEPATITIS B SURFACE ANTIGEN (2) Nonreactive Nonreactive (BEAKER) (test code = 2585) CBC W/PLT COUNT & AUTO [id number] 07:03:00 Test Item Value Reference Range Interpretation [...] (BEAKER) (test code = 2801) BASIC METABOLIC [id number] 05:20:00 Test Item Value Reference Range Interpretation [...] APPLICABLE FOR DIALYSIS PATIEN TS. BASIC METABOLIC [id number] 00:03:00 Test Item Value Reference Range Interpretation [...] PATIEN TS. CBC W/PLT COUNT & AUTO QSJCZUZNJGQU4484-98-49 23:21:00 Test Item Value Reference Range Interpretation [...] PERCENT (BEAKER) (test code = 2801) POCT-GLUCOSE [id number] 12:09:00 Test Item Value Reference Range Interpretation Comments POC-GLUCOSE METER 91 mg/dL 70-110 TESTED AT [facility] 6720 (BEAKER) (test code = [place] [id number] [id number]) CBC W/PLT COUNT & AUTO OVKGGQMQSGDN3925-01-11 05:22:00 Test Item Value Reference Range Interpretation [...] (BEAKER) (test code = 2801) BASIC METABOLIC [id number] 04:36:00 Test Item Value Reference Range Interpretation [...] S NOT APPLICABLE FOR DIALYSIS PATIEN TS. [id number] 04:34:00 Test Item Value Reference Range Interpretation Comments PHOSPHORUS (BEAKER) (test code = 3.0 mg/dL 2.3-4.7 604) [id number] 04:34:00 Test Item Value Reference Range Interpretation Comments MAGNESIUM (BEAKER) (test code = 1.7 mg/dL 1.6-2.6 627) CALCIUM, [id number] 04:33:00 Test Item Value Reference Range Interpretation Comments CALCIUM IONIZED (BEAKER) (test 1.03 mmol/L 1.12-1.27 L code = 698) PH, BLOOD (BEAKER) (test code = 7.51 1810) POCT-GLUCOSE [id number] 21:41:00 Test Item Value Reference Range Interpretation Comments POC-GLUCOSE METER 170 mg/dL 70-110 H TESTED AT [facility] 6720 (BEAKER) (test code = [place] 1538) [address] POCT-GLUCOSE [id number] 18:32:00 Test Item Value Reference Range Interpretation Comments POC-GLUCOSE METER 121 mg/dL 70-110 H TESTED AT [facility] 6720 (BEAKER) (test code = ILDA [place] 1538) [address] POCT-GLUCOSE [id number] 13:17:00 Test Item Value Reference Range Interpretation Comments POC-GLUCOSE METER 138 mg/dL 70-110 H TESTED AT [facility] 6720 (BEAKER) (test code = ILDA [place] [facility] 1538) [address] BASIC METABOLIC [id number] 11:40:00 Test Item Value Reference Range Interpretation [...] S NOT APPLICABLE FOR DIALYSIS PATIEN TS. [id number] 11:39:00 Test Item Value Reference Range Interpretation Comments PHOSPHORUS (BEAKER) (test code = 2.5 mg/dL 2.3-4.7 604) [id number] 11:39:00 Test Item Value Reference Range Interpretation Comments MAGNESIUM (BEAKER) (test code = 1.6 mg/dL 1.6-2.6 627) POCT-GLUCOSE [id number] 08:55:00 Test Item Value Reference Range Interpretation Comments POC-GLUCOSE METER 80 mg/dL 70-110 TESTED AT [facility] 6720 (BEAKER) (test code = [place] [address] 1538) CALCIUM, [id number] 06:53:00 Test Item Value Reference Range Interpretation Comments CALCIUM IONIZED (BEAKER) (test 0.98 mmol/L 1.12-1.27 L code = 698) PH, BLOOD (BEAKER) (test code = 7.64 1810) CBC W/PLT COUNT & AUTO [id number] 06:53:00 Test Item Value Reference Range Interpretation [...] % 0-1 PERCENT (BEAKER) (test code = 2091) PLATELET AGGREGATION: FUNCTION [id number] 14:31:00 Test Item Value Reference Range Interpretation Comments WEAK ADP 41 % 60-91 L RESULT(AKER) (test code = 2135) PLATELET FUNCTION 40-49% indicates SCREEN INTERP moderate platelet ([facility]) (test code = dysfunction 5133) [id number] Jada Freire MD ([facility]) (test code = (electronic signature) 1115) PLATELET COUNT AGG 111 K/CU MM 150-450 L (AKER) (test code = 0950) Platelet Function Screen results may be falsely low with platelet counts<100,000/cu mm.POCT-GLUCOSE [id number] 13:37:00 Test Item Value Reference Range Interpretation Comments POC-GLUCOSE METER 88 mg/dL 70-110 TESTED AT [facility] 67 ([facility]) (test code = ILDA [place] [facility] [id number] 1538) HEPARIN [id number] 13:18:00 Test Item Value Reference Range Interpretation Comments HEPARIN ANTIBODY Positive-See Serotonin Negative A ([facility]) (test code = Release Assay for 646) Confirmation HEPARIN ANTIBODY OD 3.000 <0.400 H ([facility]) (test code = 1241) 4T TOTAL SCORE 2 ([facility]) (test code = 0165) Probability of HIT based on scoring system: 6-8 = High probability; 4-5 = intermediate probability;0-3 = low probabilityPOCT-GLUCOSE [id number] 08:44:00 Test Item Value Reference Range Interpretation Comments POC-GLUCOSE METER 111 mg/dL 70-110 H TESTED AT [facility] 6720 (BEAKER) (test code = [place] 1538) [address] COMPREHENSIVE METABOLIC [id number] 06:34:00 Test Item Value Reference Range Interpretation [...] S NOT APPLICABLE FOR DIALYSIS PATIEN TS. [id number] 05:53:00 Test Item Value Reference Range Interpretation Comments PHOSPHORUS (BEAKER) (test code = 3.6 mg/dL 2.3-4.7 604) [id number] 05:53:00 Test Item Value Reference Range Interpretation Comments MAGNESIUM (BEAKER) (test code = 1.8 mg/dL 1.6-2.6 627) [id number] 05:32:00 Test Item Value Reference Range Interpretation [...] PERCENT (BEAKER) (test code = 2801) POCT-GLUCOSE [id number] 21:21:00 Test Item Value Reference Range Interpretation Comments POC-GLUCOSE METER 168 mg/dL 70-110 H TESTED AT [place] [address] ([facility]) (test code = [facility] 1538) [id number] POCT-GLUCOSE [id number] 16:46:00 Test Item Value Reference Range Interpretation Comments POC-GLUCOSE METER 135 mg/dL 70-110 H TESTED AT [place] [address] ([facility]) (test code = [facility] 1538) [id number] POCT-GLUCOSE [id number] 12:31:00 Test Item Value Reference Range Interpretation Comments POC-GLUCOSE METER 96 mg/dL 70-110 TESTED AT [place] [address] ([facility]) (test code = [facility] [address] 1538) POCT-GLUCOSE [id number] 08:23:00 Test Item Value Reference Range Interpretation Comments POC-GLUCOSE METER 97 mg/dL 70-110 TESTED AT [place] [address] ([facility]) (test code = [facility] [address] 1538) COMPREHENSIVE METABOLIC [id number] 06:20:00 Test Item Value Reference Range Interpretation [...] S NOT APPLICABLE FOR DIALYSIS PATIEN TS. [id number] 06:17:00 Test Item Value Reference Range Interpretation Comments PHOSPHORUS (BEAKER) (test code = 3.2 mg/dL 2.3-4.7 604) [id number] 06:17:00 Test Item Value Reference Range Interpretation Comments MAGNESIUM (BEAKER) (test code = 1.6 mg/dL 1.6-2.6 627) CBC W/PLT COUNT & AUTO [id number] 05:54:00 Test Item Value Reference Range Interpretation [...] % 0-1 PERCENT (BEAKER) (test code = 2803) BLOOD [id number] 02:01:00 Test Item Value Reference Range Interpretation Comments CULTURE (BEAKER) (test No growth in 5 days code = 1095) BLOOD [id number] 02:01:00 Test Item Value Reference Range Interpretation Comments CULTURE (BEAKER) (test No growth in 5 days code = 1095) POCT-GLUCOSE [id number] 21:21:00 Test Item Value Reference Range Interpretation Comments POC-GLUCOSE METER 151 mg/dL 70-110 H TESTED AT [facility] 6720 (BEAKER) (test code = [facility] 1538) [address] POCT-GLUCOSE [id number] 17:58:00 Test Item Value Reference Range Interpretation Comments POC-GLUCOSE METER 135 mg/dL 70-110 H TESTED AT [facility] 6720 (PARAG) (test code = [facility] 1538) [address] CT, [id number] 16:34:00FINAL REPORT CT scan of the abdomen [...] pancreas, and adrenal glands are unremarkable. Both [place] kidneys are atrophic in nature. The gallbladder [...] This is similar to previous.4. Atrophic appearing [place] kidneys.5. Diffuse anasarca. Bilateral pleural effusions. A verbal report wasgiven to the patient's nurse, Kael at the time of dictation. He was instructed to inform the physician. Signed: Amalia [place] Verified Date/Time: 02/10/2019 16:34:31 Reading Location: [facility] B1 [id number] Ortho Consult Reading Room COMPREHENSIVE METABOLIC PANEL 2019-02-10 [...] S NOT APPLICABLE FOR DIALYSIS PATIEN TS. [id number] 05:09:00 Test Item Value Reference Range Interpretation Comments PHOSPHORUS (BEAKER) (test code = 2.9 mg/dL 2.3-4.7 604) [id number] 05:09:00 Test Item Value Reference Range Interpretation Comments MAGNESIUM (BEAKER) (test code = 1.7 mg/dL 1.6-2.6 627) CBC W/PLT COUNT & AUTO [id number] 04:30:00 Test Item Value Reference Range Interpretation [...] ABSOLUTE COUNT 0.49 K/ L 0.04-0.36 H ([facility]) (test code = 416) BASOPHILS ABSOLUTE COUNT (AKER) 0.03 K/ L 0.01-0.08 (test code = 417) IMMATURE GRANULOCYTES-RELATIVE 1 % 0-1 PERCENT ([facility]) (test code = 2801) POCT-GLUCOSE [id number] 21:29:00 Test Item Value Reference Range Interpretation Comments POC-GLUCOSE METER 146 mg/dL 70-110 H TESTED AT [place] [address] ([facility]) (test code = [facility] 1538) [address] POCT-GLUCOSE [id number] 17:41:00 Test Item Value Reference Range Interpretation Comments POC-GLUCOSE METER 122 mg/dL 70-110 H TESTED AT [place] [address] ([facility]) (test code = [facility] 1538) [address] POCT-GLUCOSE [id number] 12:40:00 Test Item Value Reference Range Interpretation Comments POC-GLUCOSE METER 108 mg/dL 70-110 TESTED AT [place] [address] ([facility]) (test code = [facility] 1538) [address] POCT-GLUCOSE [id number] 07:13:00 Test Item Value Reference Range Interpretation Comments POC-GLUCOSE METER 92 mg/dL 70-110 TESTED AT [place] [address] ([facility]) (test code = [facility] [address] 1538) B-TYPE NATRIURETIC FACTOR (BNP)2019-02-09 05:36:00 Test Item Value Reference Range Interpretation Comments B-TYPE NATRIURETIC PEPTIDE 3204 pg/mL 0-100 H ([facility]) (test code = 700) COMPREHENSIVE METABOLIC [id number] 04:57:00 Test Item Value Reference Range Interpretation [...] NOT APPLICABLE FOR DIALYSIS PATIEN TS. CALCIUM, [id number] 04:36:00 Test Item Value Reference Range Interpretation Comments CALCIUM IONIZED (BEAKER) (test 1.09 mmol/L 1.12-1.27 L code = 698) PH, BLOOD (BEAKER) (test code = 7.44 1810) [id number] 04:29:00 Test Item Value Reference Range Interpretation Comments PHOSPHORUS (BEAKER) (test code = 2.9 mg/dL 2.3-4.7 604) [id number] 04:29:00 Test Item Value Reference Range Interpretation Comments MAGNESIUM (BEAKER) (test code = 1.9 mg/dL 1.6-2.6 627) CBC W/PLT COUNT & AUTO [id number] 03:19:00 Test Item Value Reference Range Interpretation [...] PERCENT (BEAKER) (test code = 2801) POCT-GLUCOSE [id number] 21:29:00 Test Item Value Reference Range Interpretation Comments POC-GLUCOSE METER 147 mg/dL 70-110 H TESTED AT [facility] 6720 (BEAKER) (test code = ILDA [place] 1538) [address] POCT-GLUCOSE [id number] 13:45:00 Test Item Value Reference Range Interpretation Comments POC-GLUCOSE METER 117 mg/dL 70-110 H TESTED AT [facility] 6720 (BEAKER) (test code = ILDA Mercer [place] 1538) [address] POCT-GLUCOSE [id number] 07:11:00 Test Item Value Reference Range Interpretation Comments POC-GLUCOSE METER 100 mg/dL 70-110 TESTED AT [facility] 6720 (BEAKER) (test code = ILDA Mercer [place] 1538) [address] COMPREHENSIVE METABOLIC [id number] 05:53:00 Test Item Value Reference Range Interpretation [...] S NOT APPLICABLE FOR DIALYSIS PATIEN TS. [id number] 05:51:00 Test Item Value Reference Range Interpretation Comments PHOSPHORUS (BEAKER) (test code = 2.8 mg/dL 2.3-4.7 604) [id number] 05:51:00 Test Item Value Reference Range Interpretation Comments MAGNESIUM (BEAKER) (test code = 1.8 mg/dL 1.6-2.6 627) CBC W/PLT COUNT & AUTO [id number] 05:01:00 Test Item Value Reference Range Interpretation [...] PERCENT (BEAKER) (test code = 2801) POCT-GLUCOSE [id number] 21:31:00 Test Item Value Reference Range Interpretation Comments POC-GLUCOSE METER 115 mg/dL 70-110 H TESTED AT [place] [address] ([facility]) (test code = [place] 1538) [address] HEMOGLOBIN AND [id number] 13:26:00 Test Item Value Reference Range Interpretation Comments HEMOGLOBIN (BEAKER) (test code = 8.3 GM/DL 11.2-15.7 L 410) HEMATOCRIT (BEAKER) (test code = 26.1 % 34.1-44.9 L 411) CREATININE, RANDOM [id number] 10:02:00 Test Item Value Reference Range Interpretation Comments CREATININE URINE ([facility]) 19.0 mg/dL Qc ok in unity (test code = 375) Reference Range: No NormalsPOCT-GLUCOSE [id number] 08:47:00 Test Item Value Reference Range Interpretation Comments POC-GLUCOSE METER 125 mg/dL 70-110 H TESTED AT [place] [address] ([facility]) (test code = ILDA Mercer [facility] 1538) [address] COMPREHENSIVE METABOLIC [id number] 06:12:00 Test Item Value Reference Range Interpretation [...] S NOT APPLICABLE FOR DIALYSIS PATIEN TS. [id number] 05:59:00 Test Item Value Reference Range Interpretation Comments PHOSPHORUS (BEAKER) (test code = 3.1 mg/dL 2.3-4.7 604) [id number] 05:59:00 Test Item Value Reference Range Interpretation Comments MAGNESIUM (BEAKER) (test code = 2.1 mg/dL 1.6-2.6 627) CBC W/PLT COUNT & AUTO [id number] 05:43:00 Test Item Value Reference Range Interpretation [...] (BEAKER) (test code = 2801) PROTEIN, RANDOM [id number] 05:03:00 Test Item Value Reference Range Interpretation Comments PROTEIN, URINE (BEAKER) (test code 178 mg/dL 0-14 H = 1569) POCT-GLUCOSE [id number] 20:57:00 Test Item Value Reference Range Interpretation Comments POC-GLUCOSE METER 176 mg/dL 70-110 H TESTED AT [facility] 6720 (BEAKER) (test code = ILDA [place] 1538) [address] HEMOGLOBIN AND [id number] 14:38:00 Test Item Value Reference Range Interpretation Comments HEMOGLOBIN (BEAKER) (test code = 7.7 GM/DL 11.2-15.7 L 410) HEMATOCRIT (BEAKER) (test code = 24.0 % 34.1-44.9 L 411) POCT-GLUCOSE [id number] 14:15:00 Test Item Value Reference Range Interpretation Comments POC-GLUCOSE METER 137 mg/dL 70-110 H TESTED AT [place] [address] ([facility] (test code = [place]AK[place] 1538) [address] URINALYSIS W/ [id number] 10:27:00 Test Item Value Reference Range Interpretation [...] 516) SOURCE(BEAKER) (test code = 2795) POCT-GLUCOSE [id number] 09:22:00 Test Item Value Reference Range Interpretation Comments POC-GLUCOSE METER 167 mg/dL 70-110 H TESTED AT [facility] 6720 (BEAKER) (test code = ILDA Mercer [place] 1538) [address] RAD, CHEST, 1 VIEW, NON [id number] 08:40:00Reason for exam:->post extubationShould this be performed [...] [place] Verified Date/Time: 02/06/2019 08:40:46 Reading Location: [facility] Radiology Reading Room CALCIUM, [id number] 06:33:00 Test Item Value Reference Range Interpretation Comments CALCIUM IONIZED (BEAKER) (test 1.05 mmol/L 1.12-1.27 L code = 698) PH, BLOOD (BEAKER) (test code = 7.52 1810) COMPREHENSIVE METABOLIC [id number] 06:22:00 Test Item Value Reference Range Interpretation [...] S NOT APPLICABLE FOR DIALYSIS PATIEN TS. [id number] 06:16:00 Test Item Value Reference Range Interpretation Comments PHOSPHORUS (BEAKER) (test code = 2.3 mg/dL 2.3-4.7 604) [id number] 06:16:00 Test Item Value Reference Range Interpretation Comments MAGNESIUM (BEAKER) (test code = 1.6 mg/dL 1.6-2.6 627) CBC W/PLT COUNT & AUTO [id number] 05:53:00 Test Item Value Reference Range Interpretation [...] PERCENT (BEAKER) (test code = 2801) POCT-GLUCOSE [id number] 20:58:00 Test Item Value Reference Range Interpretation Comments POC-GLUCOSE METER 114 mg/dL 70-110 H TESTED AT [place] [address] ([facility]) (test code = [facility] 1538) [address] POCT-GLUCOSE [id number] 11:44:00 Test Item Value Reference Range Interpretation Comments POC-GLUCOSE METER 160 mg/dL 70-110 H TESTED AT [place] [address] ([facility]) (test code = [facility] 1538) [address] RAD, CHEST, 1 VIEW, NON [id number] 08:50:00Reason for exam:->post extubationShould this be performed [...] MDReport Verified Date/Time: 02/05/2019 08:50:57 Reading Location: [facility] Radiology Reading Room POCT-GLUCOSE [id number] 07:33:00 Test Item Value Reference Range Interpretation Comments POC-GLUCOSE METER 147 mg/dL 70-110 H TESTED AT [facility] 6720 (BEAKER) (test code = [place] 1538) [address] [id number] 06:56:00 Test Item Value Reference Range Interpretation Comments PHOSPHORUS (BEAKER) (test code = 2.9 mg/dL 2.3-4.7 604) [id number] 06:56:00 Test Item Value Reference Range Interpretation Comments MAGNESIUM (BEAKER) (test code = 1.7 mg/dL 1.6-2.6 627) COMPREHENSIVE METABOLIC [id number] 06:56:00 Test Item Value Reference Range Interpretation [...] PATIEN TS. CBC W/PLT COUNT & AUTO [id number] 06:16:00 Test Item Value Reference Range Interpretation [...] (BEAKER) (test code = 2801) HEMOGLOBIN AND [id number] 05:56:00 Test Item Value Reference Range Interpretation Comments HEMOGLOBIN (BEAKER) (test code = 8.5 GM/DL 11.2-15.7 L 410) HEMATOCRIT ([facility]) (test code = 25.4 % 34.1-44.9 L 411) Post transfusionPOCT-GLUCOSE [id number] 21:25:00 Test Item Value Reference Range Interpretation Comments POC-GLUCOSE METER 185 mg/dL 70-110 H TESTED AT [place] [address] ([facility]) (test code = ILDA Mercer [facility] 1538) [address] POCT-GLUCOSE [id number] 17:17:00 Test Item Value Reference Range Interpretation Comments POC-GLUCOSE METER 155 mg/dL 70-110 H TESTED AT [place] [address] ([facility]) (test code = ILDA Mercer [facility] 1538) [address]993 POCT-GLUCOSE [id number] 12:07:00 Test Item Value Reference Range Interpretation Comments POC-GLUCOSE METER 123 mg/dL 70-110 H TESTED AT [place] [address] ([facility]) (test code = ILDA Mercer [facility] 1538) [address]96 POCT-GLUCOSE [id number] 08:04:00 Test Item Value Reference Range Interpretation Comments POC-GLUCOSE METER 108 mg/dL 70-110 TESTED AT [place] [address] ([facility]) (test code = ILDA Mercer [facility] 1538) [address] RAD, CHEST, 1 VIEW, NON [id number] 07:45:00Reason for exam:->post extubationShould this be performed [...] mediastinum:Stable contours. Additional findings: None. Signed: Patti Prideep[place] Verified Date/Time:02/04/2019 07:45:17 Reading Location: [facility] C013V Neuro Reading Room CBC W/PLT COUNT & AUTO [id number] 07:01:00 Test Item Value Reference Range Interpretation [...] = 2801) CBC W/PLT COUNT & AUTO [id number] 05:24:00 Test Item Value Reference Range Interpretation [...] (BEAKER) (test code = 2801) COMPREHENSIVE METABOLIC [id number] 05:11:00 Test Item Value Reference Range Interpretation [...] S NOT APPLICABLE FOR DIALYSIS PATIEN TS. [id number] 05:08:00 Test Item Value Reference Range Interpretation Comments PHOSPHORUS (BEAKER) (test code = 2.4 mg/dL 2.3-4.7 604) [id number] 05:08:00 Test Item Value Reference Range Interpretation Comments MAGNESIUM (BEAKER) (test code = 1.7 mg/dL 1.6-2.6 627) POCT-GLUCOSE [id number] 21:25:00 Test Item Value Reference Range Interpretation Comments POC-GLUCOSE METER 248 mg/dL 70-110 H TESTED AT [place] [address] ([facility] (test code = ILDA Mercer [facility] 1538) [address] POCT-GLUCOSE [id number] 11:33:00 Test Item Value Reference Range Interpretation Comments POC-GLUCOSE METER 168 mg/dL 70-110 H TESTED AT [place] [address] ([facility]) (test code = ILDA Mercer [facility] 1538) [address] CBC W/PLT COUNT & AUTO [id number] 09:20:00 Test Item Value Reference Range Interpretation [...] (BEAKER) (test code = 700) COMPREHENSIVE METABOLIC [id number] 07:31:00 Test Item Value Reference Range Interpretation [...] I S NOT APPLICABLE FOR DIALYSIS PATIEN TSNapoleon RAD, CHEST, 1 VIEW, NON [id number] 07:31:00Reason for exam:->post extubationShould this be performed [...] [place] Verified Date/Time: 02/03/2019 07:31:20 Reading Location: [address] Body Reading Room [id number] 07:29:00 Test Item Value Reference Range Interpretation Comments PHOSPHORUS (BEAKER) (test code = 3.5 mg/dL 2.3-4.7 604) [id number] 07:29:00 Test Item Value Reference Range Interpretation Comments MAGNESIUM (BEAKER) (test code = 2.1 mg/dL 1.6-2.6 627) CBC W/PLT COUNT & AUTO [id number] 06:50:00 Test Item Value Reference Range Interpretation [...] 0-1 PERCENT (AKER) (test code = 2801) CALCIUM, [id number] 06:30:00 Test Item Value Reference Range Interpretation Comments CALCIUM IONIZED ([facility]) (test 1.19 mmol/L 1.12-1.27 code = 698) PH, BLOOD ([facility]) (test code = 7.36 1810) POCT-GLUCOSE [id number] 21:28:00 Test Item Value Reference Range Interpretation Comments POC-GLUCOSE METER 149 mg/dL 70-110 H TESTED AT [place] [address] ([facility]) (test code = ILDA Mercer [facility] 1538) [address] POCT-GLUCOSE [id number] 12:40:00 Test Item Value Reference Range Interpretation Comments POC-GLUCOSE METER 171 mg/dL 70-110 H TESTED AT [place] [address] ([facility]) (test code = ILDA Mercer [facility] 1538) [address] POCT-GLUCOSE [id number] 09:54:00 Test Item Value Reference Range Interpretation Comments POC-GLUCOSE METER 148 mg/dL 70-110 H TESTED AT [place] [address] ([facility]) (test code = ILDA Mercer [facility] 1538) [address] RAD, CHEST, 1 VIEW, NON [id number] 08:14:00Reason for exam:->post extubationShould this be performed [...] [place] Verified Date/Time: 02/02/2019 08:14:25 [facility] Electronically signed by: JULIO Davidson 02/02/2019 08:14 AMCOMPREHENSIVE METABOLIC [id number] 06:59:00 Test Item Value Reference Range Interpretation [...] PATIEN TS. CBC W/PLT COUNT & AUTO [id number] 06:50:00 Test Item Value Reference Range Interpretation [...] 0-1 PERCENT (BEAKER) (test code = 2801) [id number] 06:49:00 Test Item Value Reference Range Interpretation Comments PHOSPHORUS (BEAKER) (test code = 3.0 mg/dL 2.3-4.7 604) [id number] 06:49:00 Test Item Value Reference Range Interpretation Comments MAGNESIUM (BEAKER) (test code = 1.6 mg/dL 1.6-2.6 627) CALCIUM, [id number] 06:34:00 Test Item Value Reference Range Interpretation Comments CALCIUM IONIZED (BEAKER) (test 1.11 mmol/L 1.12-1.27 L code = 698) PH, BLOOD (BEAKER) (test code = 7.43 1810) CALCIUM, [id number] 06:33:00 Test Item Value Reference Range Interpretation Comments CALCIUM IONIZED (BEAKER) (test 1.10 mmol/L 1.12-1.27 L code = 698) PH, BLOOD (BEAKER) (test code = 7.42 1810) POCT-GLUCOSE [id number] 21:12:00 Test Item Value Reference Range Interpretation Comments POC-GLUCOSE METER 190 mg/dL 70-110 H TESTED AT [place] [address] ([facility]) (test code = [place] 1538) [address] POCT-GLUCOSE [id number] 17:34:00 Test Item Value Reference Range Interpretation Comments POC-GLUCOSE METER 108 mg/dL 70-110 TESTED AT [place] [address] ([facility]) (test code = IL[place] 1538) [address] POCT-GLUCOSE [id number] 12:20:00 Test Item Value Reference Range Interpretation Comments POC-GLUCOSE METER 113 mg/dL 70-110 H TESTED AT [place] [address] ([facility] (test code = IL[place] 1538) [address] POCT-GLUCOSE [id number] 10:24:00 Test Item Value Reference Range Interpretation Comments POC-GLUCOSE METER 139 mg/dL 70-110 H TESTED AT [place] [address] ([facility] (test code = [place] 1538) [address] CBC W/PLT COUNT & AUTO [id number] 10:11:00 Test Item Value Reference Range Interpretation Comments WHITE BLOOD CELL COUNT (BEAKER) 14.7 K/ L 3.5-10.5 H (test code = 775) RED BLOOD CELL COUNT (BEAKER) 2.54 M/ L 3.93-5.22 L (test code [...] IMMATURE GRANULOCYTES-RELATIVE 2 % 0-1 H PERCENT ([facility]) (test code = 2801) RAD, CHEST, 1 VIEW, NON [id number] 08:14:00Reason for exam:->post extubationShould this be performed [...] Robert MDReportVerified Date/Time: 02/01/2019 08:14:17 Reading Location: [facility] Reading Room POCT-GLUCOSE [id number] 07:27:00 Test Item Value Reference Range Interpretation Comments POC-GLUCOSE METER 129 mg/dL 70-110 H TESTED AT [place] [address] ([facility]) (test code = ILDA Mercer [facility] 1538) [address] POCT-GLUCOSE [id number] 21:16:00 Test Item Value Reference Range Interpretation Comments POC-GLUCOSE METER 247 mg/dL 70-110 H TESTED AT [place] [address] ([facility]) (test code = ILDA Mercer [facility] 1538) [address] RAD, CHEST, 1 VIEW, NON [id number] 07:38:00Reason for exam:->post extubationShould this be performed [...] MDReport Verified Date/Time: 01/31/2019 07:38:40 Reading Location: [facility] Radiology Reading Room CALCIUM, [id number] 06:46:00 Test Item Value Reference Range Interpretation Comments CALCIUM IONIZED (BEAKER) (test 0.98 mmol/L 1.12-1.27 L code = 698) PH, BLOOD (BEAKER) (test code = 7.55 1810) COMPREHENSIVE METABOLIC [id number] 05:31:00 Test Item Value Reference Range Interpretation [...] S NOT APPLICABLE FOR DIALYSIS PATIEN TS. [id number] 05:30:00 Test Item Value Reference Range Interpretation Comments PHOSPHORUS (BEAKER) (test code = 2.9 mg/dL 2.3-4.7 604) [id number] 05:30:00 Test Item Value Reference Range Interpretation Comments MAGNESIUM (BEAKER) (test code = 1.6 mg/dL 1.6-2.6 627) CBC W/PLT COUNT & AUTO [id number] 05:23:00 Test Item Value Reference Range Interpretation [...] PERCENT (BEAKER) (test code = 2801) POCT-GLUCOSE [id number] 21:52:00 Test Item Value Reference Range Interpretation Comments POC-GLUCOSE METER 146 mg/dL 70-110 H TESTED AT [facility] 6720 (BEAKER) (test code = ILDA Mercer [facility] 1538) [address] POCT-GLUCOSE [id number] 18:13:00 Test Item Value Reference Range Interpretation Comments POC-GLUCOSE METER 168 mg/dL 70-110 H TESTED AT [facility] 6720 ([facility] (test code = ILDA Mercer [facility] 1538) [address] RAD, CHEST, 1 VIEW, NON [id number] 07:08:00Reason for exam:->post extubationShould this be performed [...] MDReport Verified Date/Time: 01/30/2019 07:08:13 Reading Location: [facility] Radiology Reading Room [id number] 05:34:00 Test Item Value Reference Range Interpretation Comments FERRITIN (BEAKER) (test code = 361) 606 ng/mL 5-275 H CALCIUM, [id number] 05:26:00 Test Item Value Reference Range Interpretation [...] 20-55 (test code = 2590) COMPREHENSIVE METABOLIC [id number] 05:09:00 Test Item Value Reference Range Interpretation [...] S NOT APPLICABLE FOR DIALYSIS PATIEN TS. [id number] 05:07:00 Test Item Value Reference Range Interpretation Comments PHOSPHORUS (BEAKER) (test code = 4.6 mg/dL 2.3-4.7 604) [id number] 05:07:00 Test Item Value Reference Range Interpretation Comments MAGNESIUM (BEAKER) (test code = 1.7 mg/dL 1.6-2.6 627) CBC W/PLT COUNT & AUTO [id number] 04:57:00 Test Item Value Reference Range Interpretation [...] IMMATURE GRANULOCYTES-RELATIVE 2 % 0-1 H PERCENT ([facility]) (test code = 2801) RETICULOCYTE [id number] 04:39:00 Test Item Value Reference Range Interpretation Comments RETICULOCYTE COUNT PCT ([facility]) (test 1.2 % 0.5-1.7 code = 575) POCT-GLUCOSE [id number] 21:32:00 Test Item Value Reference Range Interpretation Comments POC-GLUCOSE METER 164 mg/dL 70-110 H TESTED AT [place] [address] ([facility]) (test code = [facility] 1538) [address] POCT-GLUCOSE [id number] 17:52:00 Test Item Value Reference Range Interpretation Comments POC-GLUCOSE METER 130 mg/dL 70-110 H TESTED AT [place] [address] ([facility]) (test code = [facility] 1538) [address] POCT-GLUCOSE [id number] 13:09:00 Test Item Value Reference Range Interpretation Comments POC-GLUCOSE METER 126 mg/dL 70-110 H TESTED AT [place] [address] ([facility]) (test code = [facility] 1538) [address] RAD, CHEST, 1 VIEW, NON [id number] 08:07:00Reason for exam:->post extubationShould this be performed at the bedside?->YesFINAL REPORT INDICATION: post extubation COMPARISON:January 28 TECHNIQUE: Chest ra diograph, single view, portable technique. FINDINGS / IMPRESSION: Lungs are clear and heart shadow normal in size. No pneumothorax or pleural effusion demonstrated. Double lumen right internal jugular line terminates in the low SVC. Signed: Sandro Rhoadeseport Verified Date/Time: 01/29/2019 08:07:52 Reading Location: [facility] C013Y CT Body Reading Room POCT-GLUCOSE [id number] 08:03:00 Test Item Value Reference Range Interpretation Comments POC-GLUCOSE METER 104 mg/dL 70-110 TESTED AT [facility] 6720 (BEAKER) (test code = [place] 1538) [address] BLOOD [id number] 08:01:00 Test Item Value Reference Range Interpretation Comments CULTURE (BEAKER) (test No growth in 5 days code = 1095) BLOOD [id number] 08:01:00 Test Item Value Reference Range Interpretation Comments CULTURE (BEAKER) (test No growth in 5 days code = 1095) [id number] 06:15:00 Test Item Value Reference Range Interpretation Comments PHOSPHORUS (BEAKER) (test code = 4.2 mg/dL 2.3-4.7 604) [id number] 06:15:00 Test Item Value Reference Range Interpretation Comments MAGNESIUM (BEAKER) (test code = 1.5 mg/dL 1.6-2.6 L 627) COMPREHENSIVE METABOLIC [id number] 06:15:00 Test Item Value Reference Range Interpretation [...] PATIEN TS. CBC W/PLT COUNT & AUTO [id number] 05:44:00 Test Item Value Reference Range Interpretation [...] PERCENT (BEAKER) (test code = 2801) POCT-GLUCOSE [id number] 21:16:00 Test Item Value Reference Range Interpretation Comments POC-GLUCOSE METER 160 mg/dL 70-110 H TESTED AT [place] [address] ([facility]) (test code = ILDA Mercer [facility] 1538) [address] POCT-GLUCOSE [id number] 18:18:00 Test Item Value Reference Range Interpretation Comments POC-GLUCOSE METER 195 mg/dL 70-110 H TESTED AT [place] [address] ([facility]) (test code = ILDA Mercer [facility] 1538) [address] POCT-GLUCOSE [id number] 16:47:00 Test Item Value Reference Range Interpretation Comments POC-GLUCOSE METER 131 mg/dL 70-110 H TESTED AT [place] [address] ([facility]) (test code = ILDA Mercer [facility] 1538) [address] POCT-GLUCOSE [id number] 12:49:00 Test Item Value Reference Range Interpretation Comments POC-GLUCOSE METER 114 mg/dL 70-110 H TESTED AT [place] [address] ([facility]) (test code = ILDA Mercer [facility] 1538) [address] POCT-GLUCOSE [id number] 07:56:00 Test Item Value Reference Range Interpretation Comments POC-GLUCOSE METER 113 mg/dL 70-110 H TESTED AT [place] [address] ([facility]) (test code = ILDA Mercer [facility] 1538) [address] RAD, CHEST, 1 VIEW, NON [id number] 07:24:00Reason for exam:->post extubationShould this be performed [...] MDReport Verified Date/Time: 01/28/2019 07:24:41 Reading Location: [address] Neuro Reading Room COMPREHENSIVE METABOLIC PANEL 2019-01-28 [...] S NOT APPLICABLE FOR DIALYSIS PATIEN TS. [id number] 05:42:00 Test Item Value Reference Range Interpretation Comments PHOSPHORUS (BEAKER) (test code = 4.2 mg/dL 2.3-4.7 604) [id number] 05:42:00 Test Item Value Reference Range Interpretation Comments MAGNESIUM (BEAKER) (test code = 1.6 mg/dL 1.6-2.6 627) CBC W/PLT COUNT & AUTO [id number] 05:12:00 Test Item Value Reference Range Interpretation [...] PERCENT (BEAKER) (test code = 2801) POCT-GLUCOSE [id number] 21:58:00 Test Item Value Reference Range Interpretation Comments POC-GLUCOSE METER 200 mg/dL 70-110 H TESTED AT [place] [address] ([facility]) (test code = [facility] 1538) [address] POCT-GLUCOSE [id number] 19:08:00 Test Item Value Reference Range Interpretation Comments POC-GLUCOSE METER 155 mg/dL 70-110 H TESTED AT [place] [address] ([facility]) (test code = [facility] 1538) [address] POCT-GLUCOSE [id number] 08:16:00 Test Item Value Reference Range Interpretation Comments POC-GLUCOSE METER 85 mg/dL 70-110 TESTED AT [place] [address] ([facility]) (test code = [facility] [address] 1538) RAD, CHEST, 1 VIEW, NON [id number] 07:11:00Reason for exam:->post extubationShould this be performed at the bedside?->YesFINAL REPORT Chest, one view HISTORY: Status post extubation Comparison: 2018 Findings: Lungs: Stable bilateral airspace disease. Heart: Normal in size. Pleura: No pleural effusion or pneumothorax. Bones: Unremarkable. Lines/tubes: Unchanged position of right-sided hemodialysis catheter. IMPRESSION: No significant interval change. Signed: Gary Tucker MDReport Verified D ate/Time: 01/27/2019 07:11:40 Reading Location: [facility] B1 C013X Ortho Consult Reading Room COMPREHENSIVE METABOLIC [id number] 05:10:00 Test Item Value Reference Range Interpretation [...] S NOT APPLICABLE FOR DIALYSIS PATIEN TS. [id number] 05:04:00 Test Item Value Reference Range Interpretation Comments PHOSPHORUS (BEAKER) (test code = 4.3 mg/dL 2.3-4.7 604) [id number] 05:04:00 Test Item Value Reference Range Interpretation Comments MAGNESIUM (BEAKER) (test code = 1.7 mg/dL 1.6-2.6 627) CBC W/PLT COUNT & AUTO [id number] 04:51:00 Test Item Value Reference Range Interpretation [...] 0-1 PERCENT (BEAKER) (test code = 2801) [id number] 21:17:00 Test Item Value Reference Range Interpretation [...] (BEAKER) (test code = 2801) POCT-LACTIC ACID, [id number] 20:44:00 Test Item Value Reference Range Interpretation Comments POC-LACTIC ACID, 0.8 mmol/L 0.9-1.7 L TESTED AT [facility] 6720 VENOUS (BEAKER) (test [place] code = 2805) [address] [id number] 20:44:00 Test Item Value Reference Range Interpretation Comments POC-HEMOGLOBIN 9.2 g/dL 12.0-15.0 L TESTED AT [facility] 6720 (BEAKER) (test code = [facility] [place] 1856) [address]BZJYHL AT [facility] 67[address] [place] [facility] [address] POCT-BLOOD GASES, [id number] 20:43:00 Test Item Value Reference Range Interpretation Comments TEMP, CELSIUS-POC 37.0 (BEAKER) (test code = 1834) FIO2-POC (BEAKER) TESTED AT [facility] 67 (test code = 1835) [place] [address] PH, VENOUS-POC 7.475 7.320-7.420 H (BEAKER) (test code = 1842) PCO2, VENOUS-POC 40.3 mm Hg 41.0-51.0 L (BEAKER) (test code = 1843) PO2, VENOUS-POC 43.0 mm Hg 25.0-40.0 H (BEAKER) (test code = 1844) SO2, VENOUS-POC 82.0 % 40.0-70.0 H (BEAKER) (test code = 1845) HCO3, VENOUS-POC 29.7 meq/L 21.0-29.0 H (BEAKER) (test code = 1846) BASE EXCESS, 6.0 meq/L -2.0-3.0 H VENOUS-POC (BEAKER) (test code = 1847) [id number] 20:43:00 Test Item Value Reference Range Interpretation Comments POC-SODIUM ([facility]) 137 meq/L 135-148 TESTED A T [place] [address] (test code = 1542) [facility] [address] [id number] 20:43:00 Test Item Value Reference Range Interpretation Comments POC-POTASSIUM 5.0 meq/L 3.6-5.5 TESTED AT [place] [address] ([facility]) (test code [facility] [address] = 1540) [id number] 20:43:00 Test Item Value Reference Range Interpretation Comments POC-GLUCOSE ([facility]) 120 mg/dL 70-110 H TESTED AT [place] [address] (test code = 1855) [facility] [address] POCT-CALCIUM [id number] 20:43:00 Test Item Value Reference Range Interpretation Comments POC-CALCIUM IONIZED 1.14 mmol/L 1.12-1.27 TESTED A T [place] [address] ([facility]) (test code = [facility] 1531) [address] [id number] 20:43:00 Test Item Value Reference Range Interpretation Comments POC-HEMATOCRIT 27 % 36-45 L TESTED AT [facility] 6720 ([facility]) (test code = [facility] [address] 1856) POCT-GLUCOSE [id number] 18:18:00 Test Item Value Reference Range Interpretation Comments POC-GLUCOSE METER 105 mg/dL 70-110 TESTED AT [facility] 6720 (BEAKER) (test code = ILDA Mer[place] 1538) [address] POCT-GLUCOSE [id number] 12:30:00 Test Item Value Reference Range Interpretation Comments POC-GLUCOSE METER 97 mg/dL 70-110 TESTED AT [facility] 6720 [facility] (test code = ILDA Mercer [facility] [address] 1538) RAD, CHEST, 1 VIEW, NON [id number] 10:02:00Reason for exam:->post extubationShould this be performed at the bedside?->YesFINAL REPORT CLINICAL HISTORY: post extubation TECHNIQUE: 1 view of the chest. COMPARISON: 01/25/2019 IMPRESSION: The right central line is unchanged. There are no focal infiltrates or significant appearing effusions. The cardiomediastinal silhouette is magnified by technique. Signed: Carlee Lindo MDReport Verified Date/Time: 01/26/2019 10:02:54 Reading Location: [facility] Reading Room REHENSIVE METABOLIC [id number] 06:30:00 Test Item Value Reference Range Interpretation [...] S NOT APPLICABLE FOR DIALYSIS PATIEN TS. [id number] 06:28:00 Test Item Value Reference Range Interpretation Comments MAGNESIUM (BEAKER) 1.6 mg/dL 1.6-2.6 Specimen slightly (test code = 627) hemolyzed [id number] 06:28:00 Test Item Value Reference Range Interpretation Comments PHOSPHORUS (BEAKER) 3.5 mg/dL 2.3-4.7 Specimen slightly (test code = 604) hemolyzed CALCIUM, [id number] 06:18:00 Test Item Value Reference Range Interpretation Comments CALCIUM IONIZED (BEAKER) (test 1.01 mmol/L 1.12-1.27 L code = 698) PH, BLOOD (BEAKER) (test code = 7.50 1810) CBC W/PLT COUNT & AUTO [id number] 06:03:00 Test Item Value Reference Range Interpretation [...] PERCENT (BEAKER) (test code = 2801) CT, [id number] 00:46:00FINAL REPORT CLINICAL HISTORY: Large focal induration [...] MDReport Verified Date/Time: 01/26/2019 00:46:02 Reading Location: [address] Reading Room Electronicallysigned by: KIM ROBERTS M.D. on 01/26/2019 12:46 AMHEMOGLOBIN AND HEMATOCRIT 2019-01-26 00:02:00 Test Item Value Reference Range Interpretation Comments HEMOGLOBIN (BEAKER) (test code = 9.0 GM/DL 11.2-15.7 L 410) HEMATOCRIT ([facility]) (test code = 26.9 % 34.1-44.9 L 411) POCT-GLUCOSE [id number] 21:49:00 Test Item Value Reference Range Interpretation Comments POC-GLUCOSE METER 159 mg/dL 70-110 H TESTED AT [facility] 67 ([facility]) (test code = ILDA [place] 1538) [address] POCT-GLUCOSE [id number] 12:38:00 Test Item Value Reference Range Interpretation Comments POC-GLUCOSE METER 163 mg/dL 70-110 H TESTED AT [place] [address] ([facility]) (test code = ILDA [place] 1538) [address] RAD, CHEST, 1 VIEW, NON [id number] 10:18:00Reason for exam:->post extubationShould this be performed at the bedside?->YesFINAL REPORT CLINICAL HISTORY: post extubation TECHNIQUE: 1 view of the chest. COMPARISON: 01/24/2019 IMPRESSION: The right central line is unchanged. There are no infiltrates or effusions. The cardiomediastinal silhouette is magnified by technique. Signed: Carlee Lindo MDReportVerified Date/Time: 01/25/2019 10:18:20 Reading Location: [facility] Radiology Reading Room POCT-GLUCOSE METER 2019-01-25 08:57:00 Test Item Value Reference Range Interpretation Comments POC-GLUCOSE METER 117 mg/dL 70-110 H TESTED AT [facility] 6720 ([facility]) (test code = ILDA [place] 1538) [address] COMPREHENSIVE METABOLIC [id number] 08:20:00 Test Item Value Reference Range Interpretation Comments TOTAL PROTEIN 5.7 gm/dL 6.0-8.3 L ([facility]) (test code = 770) ALBUMIN ([facility]) 2.6 g/dL 3.5-5.0 L (test code = 1145) ALKALINE PHOSPHATASE 71 U/L 40-150 ([facility]) (test code = 346) BILIRUBIN TOTAL 0.3 [...] S NOT APPLICABLE FOR DIALYSIS PATIEN TS. [id number] 08:18:00 Test Item Value Reference Range Interpretation Comments PHOSPHORUS (BEAKER) (test code = 4.7 mg/dL 2.3-4.7 604) [id number] 08:18:00 Test Item Value Reference Range Interpretation Comments MAGNESIUM (BEAKER) (test code = 2.0 mg/dL 1.6-2.6 627) CBC W/PLT COUNT & AUTO [id number] 06:36:00 Test Item Value Reference Range Interpretation [...] PERCENT (BEAKER) (test code = 2801) CALCIUM, [id number] 06:35:00 Test Item Value Reference Range Interpretation Comments CALCIUM IONIZED (BEAKER) (test 1.01 mmol/L 1.12-1.27 L code = 698) PH, BLOOD (BEAKER) (test code = 7.46 1810) BLOOD [id number] 20:01:00 Test Item Value Reference Range Interpretation Comments CULTURE (BEAKER) (test No growth in 5 days code = 1095) BLOOD [id number] 20:01:00 Test Item Value Reference Range Interpretation Comments CULTURE (BEAKER) (test No growth in 5 days code = 1095) POCT-GLUCOSE [id number] 19:39:00 Test Item Value Reference Range Interpretation Comments POC-GLUCOSE METER 181 mg/dL 70-110 H TESTED AT [facility] 6720 (BEAKER) (test code = [place] 1538) [address] CBC W/PLT COUNT & AUTO [id number] 18:18:00 Test Item Value Reference Range Interpretation [...] PERCENT (BEAKER) (test code = 2801) POCT-GLUCOSE [id number] 18:15:00 Test Item Value Reference Range Interpretation Comments POC-GLUCOSE METER 198 mg/dL 70-110 H TESTED AT [place] [address] ([facility]) (test code = [facility] 1538) [address] HEMOGLOBIN AND [id number] 17:20:00 Test Item Value Reference Range Interpretation Comments HEMOGLOBIN (BEAKER) (test code = 6.7 GM/DL 11.2-15.7 L 410) HEMATOCRIT (BEAKER) (test code = 21.6 % 34.1-44.9 L 411) POCT-GLUCOSE [id number] 16:28:00 Test Item Value Reference Range Interpretation Comments POC-GLUCOSE METER 143 mg/dL 70-110 H TESTED AT [place] [address] ([facility]) (test code = [facility] 1538) [address] POCT-GLUCOSE [id number] 12:06:00 Test Item Value Reference Range Interpretation Comments POC-GLUCOSE METER 139 mg/dL 70-110 H TESTED AT [place] [address] ([facility]) (test code = [facility] 1538) [address] [id number] 09:03:00 Test Item Value Reference Range Interpretation Comments AMMONIA (BEAKER) (test code = 348) 18 mol/L 18-72 RAD, CHEST, 1 VIEW, NON [id number] 08:38:00Reason for exam:->post extubationShould this be performed at the bedside?->YesFINAL REPORT CLINICAL HISTORY: post extubation TECHNIQUE: 1 view of the chest. COMPARISON: 01/23/2019 IMPRESSION: The right central line is unchanged. Medial left lung base consolidation is unchanged. There is no increasing pleural fluid. The cardiomediastinal silhouette is magnified by technique. Signed: Carlee Lindo MDReport Verified Date/Time: 01/24/2019 08:38:05 Reading Location: [facility] Radiology Reading Room COMPREHENSIVE METABOLIC [id number] 08:21:00 Test Item Value Reference Range Interpretation [...] S NOT APPLICABLE FOR DIALYSIS PATIEN TS. [id number] 08:12:00 Test Item Value Reference Range Interpretation Comments PHOSPHORUS (BEAKER) (test code = 4.3 mg/dL 2.3-4.7 604) [id number] 08:12:00 Test Item Value Reference Range Interpretation Comments MAGNESIUM (BEAKER) (test code = 1.8 mg/dL 1.6-2.6 627) VITAMIN B12 AND [id number] 06:28:00 Test Item Value Reference Range Interpretation Comments VITAMIN B12 (BEAKER) (test code = 1321 pg/mL 213-816 H 774) FOLATE (BEAKER) (test code = 362) 5.2 ng/mL >=7.0 L TSH/FREE T4 IF [id number] 06:15:00 Test Item Value Reference Range Interpretation Comments THYROID STIMULATING HORMONE 3.79 uIU/mL 0.35-4.94 (BEAKER) (test code = 772) PROTHROMBIN [id number] 05:41:00 Test Item Value Reference Range Interpretation [...] code = 2801) URINALYSIS W/ REFLEX URINE [id number] 02:53:00 Test Item Value Reference Range Interpretation [...] (test code = 2795) CT, BRAIN, WITHOUT [id number] 00:46:00FINAL REPORT EXAM: CT head without contrast. [...] Darling Verified Date/Time: 01/24/2019 00:46:49 Reading Location: [facility] B1 C013Y CT Body Reading Room POCT-GLUCOSE METER 2019-01-23 23:21:00 Test Item Value Reference Range Interpretation Comments POC-GLUCOSE METER 111 mg/dL 70-110 H TESTED AT [facility] 6720 ([facility]) (test code = [place] 1538) [address] POCT-GLUCOSE [id number] 18:03:00 Test Item Value Reference Range Interpretation Comments POC-GLUCOSE METER 141 mg/dL 70-110 H TESTED AT [facility] 6720 ([facility] (test code = [place] 1538) [address] RAD, CHEST, 1 VIEW, NON [id number] 14:38:00Reason for exam:->edemaShould this be performed at the bedside?->YesFINAL REPORT CLINICAL HISTORY: edema TECHNIQUE: 1 view of the chest. COMPARISON: 01/22/2019 IMPRESSION: The right central line is unchanged. Left lung base consolidation is again seen with a possible trace left pleural effusion. The right lung remains relatively well-aerated. Thecardiomediastinal silhouette is within normal limits for size. Signed: Carlee Lindo [facility] Verified Date/Time: 01/23/2019 14:38:12 Reading Location: [facility] C013W Consult Reading Room CT, CTANGIO BRAIN [...] no major branch occlusion arising from the ewi[place] of [place]. 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 Within the limits of motion artifact, no infarct core or obvious perfusion mismatch is identified within the perfusion parametric maps. The examination was reviewed in real-time with feedback provided to the neurology team at 1320 hours on January 23, 2019. Signed: JR Mercado Robert MDRort Verified Date/Time: 01/23/2019 13:43:17 Reading Location: [facility] C013V Neuro Reading Room CT, CAROTID, [id number] 13:43:00Reason for exam:->Symptoms onset less than 6 [...] no major branch occlusion arising from the ewi[place] of [place]. Atherosclerotic disease of the bifurcations [...] MDReport Verified Date/Time: 01/23/2019 13:43:17 Reading Location: [address] Neuro Reading Room CT, CEREBRAL PERFUSION [id number] 13:43:00Reason for exam:->Symptom onset less than 6 [...] no major branch occlusion arising from the ewiia[place]p of [place]. Atherosclerotic disease of the bifurcations [...] MDReport Verified Date/Time: 01/23/2019 13:43:17 Reading Location: [address] Neuro Reading Room BLOOD GAS, [id number] 12:48:00 Test Item Value Reference Range Interpretation [...] (test code = 1819) 21.0 % BLOOD [id number] 12:01:00 Test Item Value Reference Range Interpretation Comments CULTURE (BEAKER) (test No growth in 5 days code = 1095) BLOOD [id number] 12:01:00 Test Item Value Reference Range Interpretation Comments CULTURE (BEAKER) (test No growth in 5 days code = 1095) POCT-GLUCOSE [id number] 11:47:00 Test Item Value Reference Range Interpretation Comments POC-GLUCOSE METER 107 mg/dL 70-110 TESTED AT [place] [address] ([facility] (test code = [facility] 1538) [address] POCT-GLUCOSE [id number] 10:34:00 Test Item Value Reference Range Interpretation Comments POC-GLUCOSE METER 94 mg/dL 70-110 TESTED AT [place] [address] ([facility]) (test code = [facility] [address] 1538) COMPREHENSIVE METABOLIC [id number] 06:33:00 Test Item Value Reference Range Interpretation [...] S NOT APPLICABLE FOR DIALYSIS PATIEN TS. [id number] 06:18:00 Test Item Value Reference Range Interpretation Comments PHOSPHORUS (BEAKER) (test code = 7.1 mg/dL 2.3-4.7 H 604) [id number] 06:18:00 Test Item Value Reference Range Interpretation Comments MAGNESIUM (BEAKER) (test code = 2.0 mg/dL 1.6-2.6 627) CBC W/PLT COUNT & AUTO [id number] 06:05:00 Test Item Value Reference Range Interpretation [...] PERCENT (BEAKER) (test code = 2801) CALCIUM, [id number] 05:50:00 Test Item Value Reference Range Interpretation Comments CALCIUM IONIZED (BEAKER) (test 1.00 mmol/L 1.12-1.27 L code = 698) PH, BLOOD (BEAKER) (test code = 7.35 1810) POCT-GLUCOSE [id number] 21:50:00 Test Item Value Reference Range Interpretation Comments POC-GLUCOSE METER 138 mg/dL 70-110 H TESTED AT [facility] 6720 ([facility]) (test code = ILDA [place] 1538) [address] POCT-GLUCOSE [id number] 18:02:00 Test Item Value Reference Range Interpretation Comments POC-GLUCOSE METER 147 mg/dL 70-110 H TESTED AT [facility] 6720 ([facility]) (test code = ILDA [place] 1538) [address] RAD, PELVIS, 1 OR 2 [id number] 15:58:00Reason for exam:->postop ORIFShould this be performed [...] Lindo Verified Date/Time: 01/22/2019 15:58:10 Reading Location: [address] Consult Reading Room POCT-GLUCOSE METER 2019-01-22 15:40:00 Test Item Value Reference Range Interpretation Comments POC-GLUCOSE METER 134 mg/dL 70-110 H TESTED AT [facility] 6720 ([facility]) (test code = ILDA Mercer [facility] 1538) [address] [place], [employer] IN OR/30 MINUTE [id number] 14:40:00Reason for exam:- >left acetabulum fractureFINAL REPORT [...] Lindo Verified Date/Time: 01/22/2019 14:40:54 Reading Location: [facility] C013W Consult Reading Room RAD, CHEST, 1 VIEW, NON [id number] 09:05:00Reason for exam:->post extubationShould this be performed at the bedside?->YesFINAL REPORT CLINICAL HISTORY: post extubation TECHNIQUE: 1 view of the chest. COMPARISON: 01/21/2019 IMPRESSION: The right central line is unchanged. Left lung base consolidationis unchanged. There is no increasing pleural fluid. The cardiomediastinal silhouette is magnified bytechnique. Signed: Carlee Lindo MDReport Verified Date/Time: 01/22/2019 09:05:30 Reading Location:[facility] Radiology Reading Room POCT-GLUCOSE [id number] 08:37:00 Test Item Value Reference Range Interpretation Comments POC-GLUCOSE METER 115 mg/dL 70-110 H TESTED AT [facility] 6720 ([facility]) (test code = [place] [address]) [address] COMPREHENSIVE METABOLIC [id number] 06:11:00 Test Item Value Reference Range Interpretation [...] S NOT APPLICABLE FOR DIALYSIS PATIEN TS. [id number] 06:10:00 Test Item Value Reference Range Interpretation Comments PHOSPHORUS (BEAKER) (test code = 5.2 mg/dL 2.3-4.7 H 604) [id number] 06:10:00 Test Item Value Reference Range Interpretation Comments MAGNESIUM (BEAKER) (test code = 2.1 mg/dL 1.6-2.6 627) CBC W/PLT COUNT & AUTO [id number] 05:36:00 Test Item Value Reference Range Interpretation [...] PERCENT (BEAKER) (test code = 2801) BLOOD [id number] 20:01:00 Test Item Value Reference Range Interpretation Comments CULTURE (BEAKER) (test No growth in 5 days code = 1095) POCT-GLUCOSE [id number] 18:30:00 Test Item Value Reference Range Interpretation Comments POC-GLUCOSE METER 147 mg/dL 70-110 H TESTED AT [facility] 6720 ([facility]) (test code = ILDA Mercer [facility] 1538) [address] POCT-GLUCOSE [id number] 13:50:00 Test Item Value Reference Range Interpretation Comments POC-GLUCOSE METER 159 mg/dL 70-110 H TESTED AT [facility] 6720 ([facility]) (test code = [facility] 1538) [address] RAD, PELVIS, 1 OR 2 [id number] 12:51:00Reason for exam:->s/p L distal femur traction [...] and lower extremity vasculature. Signed: Lyndsay Samayoa Verified Date/Time: 01/21/2019 12:51:37 Reading Location: [facility] C013Y CT Body Reading Room CT, PELVIS, WO [id number] 09:49:00FINAL REPORT CT of the pelvis without [...] Faiza Chu Verified Date/Time: 01/21/201909:49:33 Reading Location: [facility] C013V Neuro Reading Room POCT- GLUCOSE [id number] 08:57:00 Test Item Value Reference Range Interpretation Comments POC-GLUCOSE METER 176 mg/dL 70-110 H TESTED AT [facility] 6720 (BEAKER) (test code = [place] 1538) [address] CBC W/PLT COUNT & AUTO [id number] 08:19:00 Test Item Value Reference Range Interpretation [...] = 2801) RAD, PELVIS, 1 OR 2 [id number] 08:17:00Reason for exam:->L acetabulum fx FINAL REPORT [...] osteopenia. Vascular calcifications are seen. Signed: Claudio Junioreport Verified Date/Time: 01/21/2019 08:17:20 Reading Location: [facility] C0[facility] Transitional Reading Room RAD, FEMUR, MIN. 2 VIEWS, [id number] 08:17:00Reason for exam:->L thigh pain after in- [...] MDReport Verified Date/Time: 01/21/2019 08:17:20 Reading Location: [facility] C013 Transitional Reading Room RAD, LEG, [id number] 08:17:00Reason for exam:->L tib/fib pain after in [...] MDReport Verified Date/Time: 01/21/2019 08:17:20 Reading Location: [address] Transitional Reading Room COMPREHENSIVE METABOLIC [id number] 07:41:00 Test Item Value Reference Range Interpretation [...] S NOT APPLICABLE FOR DIALYSIS PATIEN TS. [id number] 07:32:00 Test Item Value Reference Range Interpretation Comments PHOSPHORUS (BEAKER) (test code = 3.5 mg/dL 2.3-4.7 604) [id number] 07:32:00 Test Item Value Reference Range Interpretation Comments MAGNESIUM (BEAKER) (test code = 1.8 mg/dL 1.6-2.6 627) VANCOMYCIN LEVEL, [id number] 07:30:00 Test Item Value Reference Range Interpretation Comments VANCOMYCIN RANDOM (BEAKER) (test 13.5 ug/mL code = 523) Reference Range: No NormalsCALCIUM, [id number] 07:07:00 Test Item Value Reference Range Interpretation Comments CALCIUM IONIZED (BEAKER) (test 0.97 mmol/L 1.12-1.27 L code = 698) PH, BLOOD (BEAKER) (test code = 7.43 1810) RAD, KNEE, 3 VIEWS, [id number] 04:15:00Reason for exam:->fallFINAL REPORT RAD, KNEE, 3 VIEWS, LEFT CLINICAL INDICATION: fall COMPARISON: None FINDINGS: Frontal, oblique and cross table lateral views of the left knee were obtained. There is no acute fracture or dislocation. The joint space are maintained. There are vascular calcifications. IMPRESSION: No acute fracture or dislocation. Signed: Joseline Darlingep[place] Verified Date/Time: 01/21/2019 04:15:52 Reading Location: [facility] C013Y CT Body Reading Room RAD, HIP, 2 VIEWS, [id number] 04:06:00Reason for exam:->FallFINAL REPORT RAD, HIP, 2 [...] pubic ramus and left acetabulum. Signed: Joseline Darlingnorthwest [facility] Verified Date/Time: 01/21/2019 04:06:53 Reading Location: [address] Body ReadingRoom RAD, CHEST, 2 [id number] 04:04:00Reason for exam:->fallFINAL REPORT Exam: Chest x-ray, [...] is demineralized but otherwise unremarkable. Signed: [facility] Verified Date/Time: 01/21/2019 04:04:05Reading Location: [address] Body Reading Room CT, BRAIN, WITHOUT [id number] 03:40:00FINAL REPORT EXAM: CT head without contrast. [...] fluid collection or calvarial fracture. Signed: Joseline [place] Verified Date/Time: 01/21/2019 03:40:38 Reading Location: [facility] B1 C013Y CT Body Reading Room POCT-GLUCOSE [id number] 02:33:00 Test Item Value Reference Range Interpretation Comments POC-GLUCOSE METER 124 mg/dL 70-110 H TESTED AT [place] [address] ([facility]) (test code = [facility] 1538) [address] POCT-GLUCOSE [id number] 18:31:00 Test Item Value Reference Range Interpretation Comments POC-GLUCOSE METER 120 mg/dL 70-110 H TESTED AT [place] [address] ([facility]) (test code = [facility] 1538) [address] POCT-GLUCOSE [id number] 13:05:00 Test Item Value Reference Range Interpretation Comments POC-GLUCOSE METER 107 mg/dL 70-110 TESTED AT [place] [address] ([facility]) (test code = [facility] 1538) [address] BLOOD [id number] 09:39:00 Test Item Value Reference Range Interpretation Comments CULTURE A From Anaerobic Bottle (BEAKER) (test Only Coagulas e negative code = 1095) Staphylococcuso f a second type GRAM STAIN From aerobic and RESULT ([facility]) anaerobic (test code = bottles: gram 1123) positive cocci in pairs and clusters [id number] 05:14:00 Test Item Value Reference Range Interpretation Comments PHOSPHORUS (BEAKER) (test code = 6.0 mg/dL 2.3-4.7 H 604) [id number] 05:14:00 Test Item Value Reference Range Interpretation Comments MAGNESIUM (BEAKER) (test code = 2.3 mg/dL 1.6-2.6 627) COMPREHENSIVE METABOLIC [id number] 05:14:00 Test Item Value Reference Range Interpretation [...] PATIEN TS. CBC W/PLT COUNT & AUTO [id number] 04:46:00 Test Item Value Reference Range Interpretation [...] PERCENT (BEAKER) (test code = 2801) CALCIUM, [id number] 04:40:00 Test Item Value Reference Range Interpretation Comments CALCIUM IONIZED (BEAKER) (test 1.11 mmol/L 1.12-1.27 L code = 698) PH, BLOOD (BEAKER) (test code = 7.42 1810) [id number] 04:32:00 Test Item Value Reference Range Interpretation Comments PHOSPHORUS (BEAKER) (test code = 6.0 mg/dL 2.3-4.7 H 604) [id number] 04:32:00 Test Item Value Reference Range Interpretation Comments MAGNESIUM (BEAKER) (test code = 2.2 mg/dL 1.6-2.6 627) COMPREHENSIVE METABOLIC [id number] 04:32:00 Test Item Value Reference Range Interpretation [...] NOT APPLICABLE FOR DIALYSIS PATIEN TS. POCT-GLUCOSE [id number] 00:04:00 Test Item Value Reference Range Interpretation Comments POC-GLUCOSE METER 131 mg/dL 70-110 H TESTED AT [facility] 6720 (BEAKER) (test code = [place] 1538) [address] POCT-GLUCOSE [id number] 17:32:00 Test Item Value Reference Range Interpretation Comments POC-GLUCOSE METER 132 mg/dL 70-110 H TESTED AT [place] [address] ([facility]) (test code = [facility] [place] 1538) [address] POCT-GLUCOSE [id number] 13:12:00 Test Item Value Reference Range Interpretation Comments POC-GLUCOSE METER 79 mg/dL 70-110 TESTED AT [place] [address] ([facility]) (test code = [facility] [address] 1538) BLOOD CULTURE IDENTIFICATION [id number] 11:47:00 Test Item Value Reference Range Interpretation Comments LISTERIA MONOCYTOGENES Not detected Not detected (test code = 20160607) STAPHYLOCOCCUS (test Detected Not detected A Coagula se negative code = 3513151) Staph specie s (CoNS)- methicillin resistantFirst- mariel e therapy: Vancomycin MecA DETECTED Possib le contamination. The likelihood of pathogenicity i s increased if th e organism is observed in multiple blood cultures obtain ed from separate venipunctures. Reference Range : Not Detected STAPHYLOCOCCUS AUREUS Not detected Not detected (test code = 3717588) STREPTOCOCCUS (test code Not detected Not detected = 4621846) STREPTOCOCCUS AGALACTIAE Not detected Not detected (GROUP B) (test code = 4856277) STREPTOCOCCUS PNEUMONIAE Not detected Not detected (test code = 2251846) STREPTOCOCCUS PYOGENES Not detected Not detected (GROUP A) (test code = 0522448) ACINETOBACTER BAUMANNII Not detected Not detected (test code = 5746830) HAEMOPHILUS INFLUENZAE Not detected Not detected (test code = 4462815) NEISSERIA MENINGITIDIS Not detected Not detected (test code = 7198274) ENTEROBACTERIACEAE (test Not detected Ple ase refer to code = 9406831) culture resu lts for ID and susceptibilitie s.. ENTEROBACTER CLOACOE Not detected Not detected COMPLEX (test code = 3666588) KLEBSIELLA OXYTOCA (test Not detected Not detected code = 4070035) KLEBSIELLA PNEUMONIAE Not detected Not detected (test code = 1650) PROTEUS (test code = Not detected Not detected 7993497) SERRATIA MARCESCENS Not detected Not detected (test code = 7116668) ARACELI ALBICANS (test Not detected Not detected code = 1581736) ARACELI GLABRATA (test Not detected Not detected code = 5532128) ARACELI KRUSEI (test Not detected Not detected code = 5371444) ARACELI PARAPSILOSIS Not detected Not detected (test code = 3995217) ARACELI TROPICALIS (test Not detected Not detected code = 8746478) ESCHERICHIA COLI (test Not detected Not detected code = 0249004) METHICILLIN-RESISTANCE Detected Not detected A GENE (test code = 0625316) VANCOMYCIN-RESISTANCE Not detected GENE (test code = 8920898) CARBAPENEM-RESISTANCE Not detected Please refer to GENE (test code = culture re sults 9518852) for ID and susceptibilitie s.. ENTEROCOCCUS-BEAKER Not detected Not detected (test code = 0802647) PSEUDOMONAS Not detected Not detected AERUGINOSA-BEAKER (test code = 2841609) Other bacteria and resistance markers not targeted by this PCR panel cannot be excluded; therefore clinical correlation and follow up of serology, culture results, and other molecular studies is required. The results are not intended to be used as the sole means for clinical diagnosis or patient management decisions. This sample was tested at the [facility] using the HSTYLE Blood Culture ID Panel. It is FDA cleared and has been verified and approved by the [facility] for clinical use. This laboratory is CLIA-certified and College ofAmerican Pathologists (CAP)-accredited to perform high complexity testing.SPUTUM CULTURE + GRAM [id number] 10:05:00 Test Item Value Reference Range Interpretation Comments CULTURE (BEAKER) 2+ Normal respiratory (test code = 1095) laquita present GRAM STAIN RESULT 2+ WBCs (BEAKER) (test code = 1123) GRAM STAIN RESULT 0-5 epithelial cells (BEAKER) (test code = 27360) GRAM STAIN RESULT 2+ gram positive cocci (BEAKER) (test code = in chains, pairs and 14192) clusters RAD, CHEST, 1 VIEW, NON [id number] 07:28:00Reason for exam:- >intubatedShould this be performed at the bedside?->YesFINAL REPORT Chest one view. Clinical history: intubated Comparison: 01/18/2019 Discussion: A frontal chest is provided. Cardiomediastinal contours are unchanged. Lines and tubes are in stable position. Unchanged retrocardiac opacity. No new consolidation. No pneumothorax orlarge effusion. Signed: Faiza Chu Verified Date/Time: 01/19/2019 07:28:52 Reading Location: [facility] Reading Room COMPREHENSIVE METABOLIC [id number] 06:18:00 Test Item Value Reference Range Interpretation [...] S NOT APPLICABLE FOR DIALYSIS PATIEN TS. [id number] 05:50:00 Test Item Value Reference Range Interpretation Comments PHOSPHORUS (BEAKER) (test code = 2.9 mg/dL 2.3-4.7 604) [id number] 05:50:00 Test Item Value Reference Range Interpretation Comments MAGNESIUM (BEAKER) (test code = 1.7 mg/dL 1.6-2.6 627) VANCOMYCIN LEVEL, [id number] 05:50:00 Test Item Value Reference Range Interpretation Comments VANCOMYCIN RANDOM (BEAKER) (test 10.9 ug/mL code = 523) Reference Range: No NormalsCBC W/PLT COUNT & AUTO [id number] 05:25:00 Test Item Value Reference Range Interpretation [...] (BEAKER) (test code = 2801) BLOOD GAS, [id number] 05:21:00 Test Item Value Reference Range Interpretation [...] (test code = 1819) 40.0 % CALCIUM, [id number] 05:21:00 Test Item Value Reference Range Interpretation Comments CALCIUM IONIZED (BEAKER) (test 1.17 mmol/L 1.12-1.27 code = 698) PH, BLOOD (BEAKER) (test code = 7.57 1810) POCT-GLUCOSE [id number] 23:38:00 Test Item Value Reference Range Interpretation Comments POC-GLUCOSE METER 101 mg/dL 70-110 TESTED AT [facility] 6720 (BEAKER) (test code = [place] 1538) [address] POCT-GLUCOSE [id number] 18:20:00 Test Item Value Reference Range Interpretation Comments POC-GLUCOSE METER 105 mg/dL 70-110 TESTED AT [facility] 6720 (BEAKER) (test code = [place] 1538) [address] PROTHROMBIN [id number] 15:43:00 Test Item Value Reference Range Interpretation Comments PROTIME (BEAKER) (test code = 15.6 seconds 11.7-14.7 H 759) INR (BEAKER) (test code = 370) 1.3 <=5.9 RECOMMENDED COUMADIN/WARFARIN INR THERAPY RANGESSTANDARD DOSE: 2.0 - 3.0 Includes: PROPHYLAXIS forvenous thrombosis, systemic embolization; TREATMENT for venous thrombosis and/or pulmonary embolus.HIGH RISK: Target INR is 2.5-3.5 for patients with mechanical heart valves.POCT-GLUCOSE [id number] 15:09:00 Test Item Value Reference Range Interpretation Comments POC-GLUCOSE METER 110 mg/dL 70-110 TESTED AT [facility] 6720 (BEAKER) (test code = [place] 1538) [address] HEPATITIS B SURFACE [id number] 07:49:00 Test Item Value Reference Range Interpretation Comments HEPATITIS B SURFACE ANTIGEN (2) Nonreactive Nonreactive (BEAKER) (test code = 2585) [id number] 07:42:00 Test Item Value Reference Range Interpretation Comments PHOSPHORUS (BEAKER) (test code = 4.6 mg/dL 2.3-4.7 604) [id number] 07:42:00 Test Item Value Reference Range Interpretation Comments MAGNESIUM (BEAKER) (test code = 1.7 mg/dL 1.6-2.6 627) COMPREHENSIVE METABOLIC [id number] 07:42:00 Test Item Value Reference Range Interpretation [...] S NOT APPLICABLE FOR DIALYSIS PATIEN TS. [id number] 07:01:00 Test Item Value Reference Range Interpretation Comments PARTIAL THROMBOPLASTIN TIME 83.6 seconds 22.5-36.0 H (BEAKER) (test code = 760) RAD, CHEST, 1 VIEW, NON [id number] 07:00:00Reason for exam:- >intubatedShould this be performed [...] [place] Verified Date/Time: 01/18/2019 07:00:55 Reading Location: [facility] C013Y CT Body Reading Room CBC W/PLT COUNT & AUTO [id number] 06:59:00 Test Item Value Reference Range Interpretation [...] (BEAKER) (test code = 2801) BLOOD GAS, [id number] 06:51:00 Test Item Value Reference Range Interpretation [...] (test code = 387) PATIENT TEMPERATURE (BEAKER) 37.2 C (test code = 1818) FIO2 (BEAKER) (test code = 1819) 40.0 % [id number] 00:22:00 Test Item Value Reference Range Interpretation Comments POTASSIUM (BEAKER) (test code = 4.3 meq/L 3.5-5.1 379) [id number] 00:17:00 Test Item Value Reference Range Interpretation Comments PARTIAL THROMBOPLASTIN TIME 68.7 seconds 22.5-36.0 H (BEAKER) (test code = 760) [id number] 20:12:00 Test Item Value Reference Range Interpretation Comments PARTIAL THROMBOPLASTIN TIME 61.8 seconds 22.5-36.0 H (BEAKER) (test code = 760) POCT-GLUCOSE [id number] 18:39:00 Test Item Value Reference Range Interpretation Comments POC-GLUCOSE METER 80 mg/dL 70-110 TESTED AT [place] [address] (BEAKER) (test code = [facility] [address] 1538) POCT-GLUCOSE [id number] 12:28:00 Test Item Value Reference Range Interpretation Comments POC-GLUCOSE METER 80 mg/dL 70-110 TESTED AT [place] 7780820 (BEAKER) (test code = [facility] [address] 1538) [id number] 12:12:00 Test Item Value Reference Range Interpretation Comments PARTIAL THROMBOPLASTIN TIME 65.0 seconds 22.5-36.0 H (BEAKER) (test code = 760) TROPONIN [id number] 10:49:00 Test Item Value Reference Range Interpretation Comments TROPONIN I (BEAKER) (test code = 0.28 ng/mL 0.00-0.03 [facility]) Troponin I (TnI) levels must be interpreted [...] acute neurological disease, and persistent tachyarrhythmia.RESPIRATORY PANEL [id number] 09:51:00 Test Item Value Reference Range Interpretation [...] decisions. This sample was tested at the [facility] using the DataRoseArray Respiratory Panel. It is FDA cleared and has been verified and approved by the [facility] for clinical use on nasopharyngeal swab specimens.The performance of the FilmArrayRP has not been established in individuals who received influenza vaccine. Recent administration ofa nasal influenza vaccine may cause false positive results for Influenza A and/orInfluenza B.COMPREHENSIVE METABOLIC [id number] 05:18:00 Test Item Value Reference Range Interpretation [...] S NOT APPLICABLE FOR DIALYSIS PATIEN TS. [id number] 05:17:00 Test Item Value Reference Range Interpretation Comments MAGNESIUM (BEAKER) 1.9 mg/dL 1.6-2.6 Specimen slightly (test code = 627) hemolyzed [id number] 05:17:00 Test Item Value Reference Range Interpretation Comments PHOSPHORUS (BEAKER) 4.3 mg/dL 2.3-4.7 Specimen slightly (test code = 604) hemolyzed [id number] 05:01:00 Test Item Value Reference Range Interpretation Comments PARTIAL THROMBOPLASTIN TIME 108.7 seconds 22.5-36.0 H (BEAKER) (test code = 760) CBC W/PLT COUNT & AUTO [id number] 04:48:00 Test Item Value Reference Range Interpretation [...] (BEAKER) (test code = 2801) BLOOD GAS, [id number] 04:41:00 Test Item Value Reference Range Interpretation [...] (test code = 1819) 40.0 % CALCIUM, [id number] 04:41:00 Test Item Value Reference Range Interpretation Comments CALCIUM IONIZED (BEAKER) (test 1.11 mmol/L 1.12-1.27 L code = 698) PH, BLOOD (BEAKER) (test code = 7.47 1810) RAD, CHEST, 1 VIEW, NON [id number] 04:31:00Reason for exam:- >intubatedShould this be performed [...] [place] Verified Date/Time: 01/17/2019 04:31:10 Reading Location: [address] Neuro Reading Room D GAS, [id number] 01:06:00 Test Item Value Reference Range Interpretation [...] (test code = 1819) 40.0 % TROPONIN [id number] 23:17:00 Test Item Value Reference Range Interpretation [...] acute neurological disease, and persistent tachyarrhythmia.BASIC METABOLIC [id number] 23:05:00 Test Item Value Reference Range Interpretation [...] S NOT APPLICABLE FOR DIALYSIS PATIEN TS. [id number] 23:04:00 Test Item Value Reference Range Interpretation Comments MAGNESIUM (BEAKER) (test code = 1.8 mg/dL 1.6-2.6 627) [id number] 22:56:00 Test Item Value Reference Range Interpretation Comments PARTIAL THROMBOPLASTIN TIME 76.2 seconds 22.5-36.0 H (BEAKER) (test code = 760) HEMOGLOBIN [id number] 22:46:00 Test Item Value Reference Range Interpretation Comments HEMOGLOBIN A1C (BEAKER) (test code = 5.2 % 4.3-6.1 368) POSSIBLE HEMOGLOBIN S VARIANT NOTED IN HEMOGLOBIN A1C CHROMATOGRAPH. SUGGEST HEMOGLOBIN ELECTROPHORESIS IF CLINICALLY INDICATED.B-TYPE NATRIURETIC FACTOR (BNP)2019-01-16 19:08:00 Test Item Value Reference Range Interpretation Comments B-TYPE NATRIURETIC PEPTIDE 3143 pg/mL 0-100 H (BEAKER) (test code = 700) TROPONIN [id number] 18:17:00 Test Item Value Reference Range Interpretation [...] acute neurological disease, and persistent tachyarrhythmia.COMPREHENSIVE METABOLIC [id number] 18:10:00 Test Item Value Reference Range Interpretation [...] NOT APPLICABLE FOR DIALYSIS PATIEN TS. LIPID [id number] 18:06:00 Test Item Value Reference Range Interpretation [...] 100-129 Borderline 130-159 High 160-189 Very High [id number] 18:06:00 Test Item Value Reference Range Interpretation Comments MAGNESIUM (BEAKER) (test code = 1.8 mg/dL 1.6-2.6 627) [id number] 18:06:00 Test Item Value Reference Range Interpretation Comments PHOSPHORUS (BEAKER) (test code = 4.7 mg/dL 2.3-4.7 604) LACTIC ACID, [id number] 18:03:00 Test Item Value Reference Range Interpretation Comments LACTATE BLOOD VENOUS (2) (BEAKER) 0.8 mmol/L 0.5-2.2 (test code = 2872) [id number] 17:58:00 Test Item Value Reference Range Interpretation Comments PARTIAL THROMBOPLASTIN TIME 32.0 seconds 22.5-36.0 (BEAKER) (test code = 760) Prior to initiating heparinCBC W/PLT COUNT & AUTO [id number] 17:55:00 Test Item Value Reference Range Interpretation [...] = 2801) RAD, CHEST, 1 VIEW, NON [id number] 17:13:00Post-intubationReason for exam:- >intubationShould this be performed [...] [place]ub[place] Verified Date/Time: 01/16/2019 17:13:52 Reading Location: [facility] RAD, ABDOMEN/KUB, 1 VIEW [id number] 17:06:00Reason for exam:->ng tube placement FINAL REPORT [...] Grubbs Verified Date/Time: 01/16/2019 17:06:42 Reading Location: [facility] [employer]
[2020-03-18 06:38] LABS: Arterial Blood Carboxyhemoglob 0.9 % (0-1.5); Blood Gas Oxyhemoglobin 96.1 % (94-97); Blood O2 Saturation 98.5 % (92-98.5)
--- NOTE | 2020-03-18 07:19 | RAD REPORT ---
EXAM DESCRIPTION: CT - Head Brain Wo Cont - 03/18/2020 6:53 am CLINICAL HISTORY: AMS Headache, drowsiness COMPARISON: Ct Stroke Brain Wo Cont dated 01/30/2020; Head Brain Wo Cont dated 07/13/2019 TECHNIQUE: All CT scans are performed using dose optimization technique as appropriate and may inclu de automated exposure control or mA/KV adjustment according to patient size. FINDINGS: No intracranial hemorrhage, hydrocephalus or extra-axial fluid collection.Mild generalized brain atrophy is present with moderate periventricular and deep white matter chronic microvascular i schemic changes.No areas of brain edema or evidence of midline shift. Mild vertebral atherosclerosis. The paranasal sinuses and mastoids are clear. The calvarium is intact. IMPRESSION: No acute intracranial abnormality.
[2020-03-18 08:07] LABS: Protime INR 1.01
[2020-03-18 08:08] LABS: Absolute Lymphocytes (CBC) 0.7 K/uL (0.7-4.9); Basophils % 0.4 % (0-1.3); Hematocrit 36.1 % (36.0-45.0); Lymphocytes % 9.1 % (15.3-44.8); MPV 8.8 fL (7.6-11.3); RBC Red Blood Cell Count 3.39 M/uL (3.86-4.86)
[2020-03-18 08:19] LABS: Barbiturates NEGATIVE (NEGATIVE); Benzodiazepines NEGATIVE (NEGATIVE); Cocaine NEGATIVE (NEGATIVE); METHAMPHETAM NEGATIVE (NEGATIVE); Methadone NEGATIVE (NEGATIVE); Opiates NEGATIVE (NEGATIVE); Phencyclidine NEGATIVE (NEGATIVE); THC Cannibis NEGATIVE (NEGATIVE)
[2020-03-18 08:21] LABS: Urine Blood TRACE (NEG); Urine Glucose TRACE (NEG); Urine Protein 2+ (NEG); Urine Specific Gravity 1.025 (1.005-1.030)
--- NOTE | 2020-03-18 08:23 | EDPHYS ---
Physician Documentation [facility] Name: Rhoda Lu Age: 69 yrs Sex: Female : 1950 Arrival Date: 03/18/2020 Time: 06:06 Bed 3 Private MD: ED Physician Ricky Garcia HPI: 03/18 06:25 This 69 yrs old Black Female presents to ER via EMS with complaints of Unresponsive. 7 06:26 The patient presents with decreased responsiveness. Onset: The symptoms/episode mh7 began/occurred at an unknown time. Possible causes: unknown. Associated signs and symptoms: Pertinent positives: tremors. Current symptoms: In the emergency department the patient's symptoms are unchanged from the initial presentation. Unable to obtain HPI due to altered mental status, patient is on ventilator. According to EMS, patient's son called due to finding patient unresponsive in bed. She reportedly missed her last dialysis session.. 06:26 Patient intubated at scene by EMS and given Etomidate, Fentanyl, Ativan. 7 Historical: - Allergies: 06:28 Codeine; jd3 06:28 Demerol; jd3 06:28 Morphine; jd3 06:28 TETRACYCLINES; jd3 - Home Meds: 06:28 ascorbic acid (vitamin C) 500 mg tab [Active]; amlodipine 10 mg tab 1 tab once daily jd3 [Active]; aspirin 81 mg Oral chew [Active]; atorvastatin 40 mg Oral tab [Active]; clonidine HCl 0.2 mg Oral tab [Active]; cyclobenzaprine 5 mg Oral tab [Active]; Humulin 70/30 Sub-Q twice a day [Active]; hydralazine 50 mg Oral tab 1 tab 2 times per day [Active]; famotidine 20 mg Oral tab [Active]; carvedilol 25 mg Oral tab 1 tab 2 times per day [Active]; hydralazine 50 mg Oral tab [Active]; lactulose 10 gram/15 mL (15 mL) Oral soln [Active]; lisinopril 40 mg Oral tab [Active]; isosorbide mononitrate 60 mg Oral Tb24 [Active]; nifedipine 90 mg Oral TbER [Active]; lidocaine patch 4% [Active]; tramadol 50 mg Oral tab [Active]; Zinc Sulfate Oral [Active]; tramadol-acetaminophen 37.5-325 mg Oral tab [Active]; Coreg 25 mg Oral tab [Active]; Zofran (as hydrochloride) 4 mg Oral tab [Active]; furosemide 20 mg Oral tab 1 tab once daily [Active]; - PMHx: 06:28 Hypertension; Renal Disease; Diabetes - IDDM; DVT; dialysis T,TH,S; chronic anemia; CHF;jd3 - PSHx: dialysis ports; jd3 - Immunization history:: Adult Immunizations unknown. - Social history:: Smoking status: unknown. ROS: 06:26 Unable to obtain ROS due to comatose state, patient is on ventilator. 7 Exam: 06:26 Head/Face: Normocephalic, atraumatic. mh7 06:26 Neck: Trachea midline, no thyromegaly or masses palpated, and no cervical lymphadenopathy. Supple, full range of motion without nuchal rigidity, or vertebral point tenderness. No Meningismus. Chest/axilla: Normal chest wall appearance and motion. Nontender with no deformity. No lesions are appreciated. Cardiovascular: Regular rate and rhythm with a normal S1 and S2. No gallops, murmurs, or rubs. Normal PMI, no JVD. No pulse deficits. 06:26 Abdomen/GI: Soft, non-tender, with normal bowel sounds. No distension or tympany. No guarding or rebound. No evidence of tenderness throughout. Back: No spinal tenderness. No costovertebral tenderness. Full range of motion. Skin: Warm, dry with normal turgor. Normal color with no rashes, no lesions, and no evidence of cellulitis. 06:26 Constitutional: The patient appears frail, obviously ill, Intubated, sedated 06:26 Eyes: Periorbital structures: appear normal, Pupils: post cataract surgery, left eye, Extraocular movements: Conjunctiva: normal, Corneas: are normal, Sclera: no appreciated abnormality, Lids and lashes: appear normal. 06:26 ENT: External ear(s): are unremarkable, Nose: is normal, Mouth: Endotracheal Tube in place. 06:26 Respiratory: moderate respiratory distress is noted, Respirations: prolonged exhalation, that is mild, Intubated, Breath sounds: rhonchi, that are moderate, are scattered. 06:26 Musculoskeletal/extremity: Extremities: all appear grossly normal, with no appreciated pain with palpation, ROM: sedated, intubated, Circulation is intact in all extremities. 06:26 Neuro: Orientation: unable to test, the patient is comatose, Mentation: unable to test, the patient is intubated, Memory: unable to test, the patient is intubated, Cranial nerves: unable to test, the patient is intubated, Cerebellar function: unable to test, the patient is intubated, Motor: unable to test, the patient is intubated, Sensation: unable to test, the patient is intubated, Gait: not tested. seizure activity, is not displayed by the patient, Abnormal movements: there are no abnormal movements. 06:26 ECG was reviewed by the Attending Physician. [facility] 08:23 ECG was reviewed by the Attending Physician. gadiel Vital Signs: 06:25 BP 170 / 80; Pulse 70; Resp 17 A; Temp 98.7(R); Pulse Ox 100% on ETT vent; Weight 45.36 jd3 kg (R); Height 4 ft. 11 in. (149.86 cm) (R); Pain 0/10; 07:05 BP 155 / 93; Pulse 63; Resp 15 S; Pulse Ox 100% on R/A; jd3 07:56 Temp 96.6(O); aa5 08:00 BP 168 / 99; Pulse 63; Resp 16 A; Pulse Ox 100% on ETT vent; aa5 08:15 aa5 08:30 BP 162 / 97; Pulse 65; Resp 16 A; Pulse Ox 100% on ETT vent; aa5 09:00 BP 187 / 89; Pulse 66; Resp 16 A; Pulse Ox 100% on ETT vent; aa5 09:30 BP 190 / 88; Pulse 68; Resp 16 A; Pulse Ox 100% on ETT vent; aa5 10:00 BP 203 / 120; Pulse 74; Resp 18 A; Pulse Ox 100% on ETT vent; aa5 10:20 BP 204 / 91; Pulse 72; Resp 16 A; Temp 97.7(R); Pulse Ox 100% on ETT vent; aa5 10:40 BP 192 / 87; Pulse 79; Resp 16 A; Pulse Ox 100% on ETT vent; aa5 10:55 BP 184 / 75; Pulse 72; Resp 16 A; Pulse Ox 100% on ETT vent; aa5 11:10 BP 171 / 100; Pulse 74; Resp 16 A; Pulse Ox 100% on ETT vent; aa5 11:30 BP 178 / 99; Pulse 78; Resp 16 A; Pulse Ox 100% on ETT vent; aa5 11:45 BP 173 / 99; Pulse 78; Resp 16 A; Temp 97.6(R); Pulse Ox 100% on ETT vent; aa5 12:00 BP 174 / 72; Pulse 77; Resp 16 A; Pulse Ox 100% on ETT vent; aa5 06:25 Body Mass Index 20.20 (45.36 kg, 149.86 cm) jd3 08:15 Vent Settings: AC 16, TV 400, 30% O2 aa5 10:00 Dr. Garcia notified of elevated BP aa5 MDM: 06:23 Patient medically screened. [facility] 07:14 Differential Diagnosis: CVA, electrolyte abnormality, hypoglycemia, intracranial bleed, 7 pneumonia, sepsis, TIA. 07:16 Transition of care: After a detail discussion of the patient's case, care is [facility] transferred to Ricky Garcia MD. 08:18 Data reviewed: vital signs, nurses notes, lab test result(s), EKG, radiologic studies, gadiel CT scan, plain films. Data interpreted: phototypesetting equipment monitor: rate is 63 beats/min, rhythm is regular. Test interpretation: by ED physician or midlevel provider: ECG, plain radiologic studies. Counseling: I had a detailed discussion with the patient and/or guardian regarding: the historical points, exam findings, and any diagnostic results supporting the discharge/admit diagnosis, lab results, radiology results, the need for further work-up and treatment in the hospital. 03/18 06:19 Order name: Basic Metabolic Panel; Complete Time: 08:27 03/18 06:19 Order name: CBC with Diff; Complete Time: 13:14 03/18 06:19 Order name: LFT's; Complete Time: 08:27 03/18 06:19 Order name: Magnesium; Complete Time: 08:27 03/18 06:19 Order name: NT PRO-BNP; Complete Time: 08:27 03/18 06:19 Order name: PT-INR; Complete Time: 08:18 03/18 06:19 Order name: Troponin (emerg Dept Use Only); Complete Time: 08:27 [facility] 03/18 06:19 Order name: ABG; Complete Time: 06:44 [facility] 03/18 07:14 Order name: Alcohol Level; Complete Time: 08:25 [facility] 03/18 07:14 Order name: UDS; Complete Time: 08:25 [facility] 03/18 08:00 Order name: Urine Dipstick--Ancillary (enter results); Complete Time: 08:25 em 03/18 08:27 Order name: Blood Culture Adult (2) [facility] 03/18 08:27 Order name: Lactate; Complete Time: 13:14 [facility] 03/18 08:27 Order name: Procalcitonin; Complete Time: 13:14 [facility] 03/18 08:54 Order name: Manual Differential; Complete Time: 13:14 [facility] 03/18 09:46 Order name: [facility] 03/18 09:46 Order name: Group A Streptococcus Rapid Sc; Complete Time: 13:14 [facility] 03/18 09:46 Order name: Influenza Screen (A ; Complete Time: 13:14 [facility] 03/18 10:11 Order name: Blood Culture [facility] 03/18 10:59 Order name: Glucose, Ancillary Testing; Complete Time: 13:14 [facility] 03/18 16:00 Order name: Creatine Phosphokinase; Complete Time: 19:39 [facility] 03/18 16:00 Order name: CKMB Creatine Kinase MB; Complete Time: 19:39 [facility] 03/18 16:00 Order name: Troponin I; Complete Time: 19:39 [facility] 03/18 16:47 Order name: Glucose, Ancillary Testing; Complete Time: 19:39 [facility] 03/18 20:14 Order name: Glucose, Ancillary Testing [facility] 03/18 06:19 Order name: XRAY Chest (1 view); Complete Time: 13:14 [facility] 03/18 06:19 Order name: EKG; Complete Time: 06:20 [facility] 03/18 06:19 Order name: Cardiac monitoring; Complete Time: 06:31 [facility] 03/18 06:19 Order name: EKG - Nurse/Tech; Complete Time: 06:31 [facility] 03/18 06:19 Order name: IV Saline Lock; Complete Time: 06:32 [facility] 03/18 06:19 Order name: Labs collected and sent; Complete Time: 06:32 [facility] 03/18 06:19 Order name: O2 Per Protocol; Complete Time: 06:32 7 03/18 06:19 Order name: O2 Sat Monitoring; Complete Time: 06:32 7 03/18 06:19 Order name: CT Head Brain wo Cont; Complete Time: 07:34 7 03/18 08:03 Order name: Straight Cath - Urine: VO received at 0745; Complete Time: 08:04 aa5 03/18 08:09 Order name: Chest Single View XRAY; Complete Time: 13:14 [facility] 03/18 10:11 Order name: CONS Physician Consult EDMS 03/18 11:45 Order name: US; Complete Time: 13:14 EDMS EC:26 Rate is 69 beats/min. Rhythm is regular, Normal Sinus Rhythm with PACs. QRS [place] is mh7 Normal. AL interval is normal. QRS interval is normal. QT interval is normal. No Q waves. T waves are Normal. No ST changes noted. Clinical impression: Abnormal EKG without significant change. 08:23 Rate is 69 beats/min. Rhythm is regular. QRS [place] is Normal. AL interval is normal. QRS gadiel interval is normal. QT interval is normal. No Q waves. T waves are Normal. No ST changes noted. Clinical impression: No evidence of ischemia. Interpreted by me. Reviewed by me. Administered Medications: 09:55 Drug: Cefepime 1 grams Route: IVPB; Rate: 200 ml/hr; Infused Over: 30 mins; Site: right aa5 upper arm; 10:55 Follow up: Response: No adverse reaction; IV Status: Completed infusion aa5 10:05 Drug: hydrALAZINE 5 mg Route: IV; Rate: calculated rate; Site: right forearm; aa5 10:15 Follow up: Response: No adverse reaction; Blood pressure is lowered aa5 10:23 Drug: hydrALAZINE 5 mg Route: IV; Rate: calculated rate; Site: right forearm; aa5 10:45 Follow up: Response: No adverse reaction; Blood pressure is lowered aa5 Disposition: 03/18/20 08:22 Hospitalization ordered by Luis Miguel Malave for Inpatient Admission. Preliminary diagnosis are Dyspnea, End stage renal disease - on HD T, Th, Sat, Type 1 diabetes mellitus, Respiratory failure, unspecified, Essential (primary) hypertension. - Bed requested for [facility] ER HOLD. - Status is Inpatient Admission. rv - Condition is Fair. - Problem is new. - Symptoms have improved. Signatures: Dispatcher [employer] EDRicky Higgins MD MD cha Calderon, Audri RN RN aa5 Cliff Almaguer RN RN jd3 Florentino Serrano RN RN rv Harsha Chamberlain MD MD mh7 Corrections: (The following items were deleted from the chart) 10:11 08:22 Hospitalization Ordered by Luis Miguel Malave DO for Inpatient Admission. Preliminary aa5 diagnosis is Dyspnea; End stage renal disease - on HD T, Th, Sat; Type 1 diabetes mellitus; Respiratory failure, unspecified. Bed requested for Telemetry/MedSurg (Inpatient). Status is Inpatient Admission. Condition is Fair. Problem is new. Symptoms have improved. [facility] 10:14 10:11 03/18/2020 08:22 Hospitalization Ordered by Luis Miguel Malave DO for Inpatient aa5 Admission. Preliminary diagnosis is Dyspnea; End stage renal disease - on HD T, Th, Sat; Type 1 diabetes mellitus; Respiratory failure, unspecified. Bed requested for [facility] ER HOLD. Status is Inpatient Admission. Condition is Fair. Problem is new. Symptoms have improved. aa 13:17 10:14 03/18/2020 08:22 Hospitalization Ordered by Luis Miguel Malave DO for Inpatient gadiel Admission. Preliminary diagnosis is Dyspnea; End stage renal disease - on HD T, Th, Sat; Type 1 diabetes mellitus; Respiratory failure, unspecified. Bed requested for [facility] ER HOLD. Status is Inpatient Admission. Condition is Fair. Problem is new. Symptoms have improved. aa5 20:40 13:17 03/18/2020 08:22 Hospitalization Ordered by Luis Miguel Malave DO for Inpatient rv Admission. Preliminary diagnosis is Dyspnea; End stage renal disease - on HD T, Th, Sat; Type 1 diabetes mellitus; Respiratory failure, unspecified; Essential (primary) hypertension. Bed requested for [facility] ER HOLD. Status is Inpatient Admission. Condition is Fair. Problem is new. Symptoms have improved. gadiel
--- NOTE | 2020-03-18 08:23 | ER ---
Nurse's Notes [facility] Name: Rhoda uL Age: 69 yrs Sex: Female : 1950 Arrival Date: 03/18/2020 Time: 06:06 Bed 3 Private MD: Diagnosis: Dyspnea;End stage renal disease-on HD T, Th, Sat;Type 1 diabetes mellitus;Respiratory failure, unspecified;Essential (primary) hypertension Presentation: 03/18 06:17 Chief complaint: EMS states: "we were initially called out for a pt having tremor and jd3 not waking up. on our arrival pt was still had a tremor and was unresponsive. we gave 4 of Ativan, Etomidate 20, and Rocuronium 40 and intubated. pulses/heart rate was initially tachy, but slowed down after intubation. stable vitals otherwise. blood sugar was 144. the ET tube is a 6.5 and it is measured at 25 at the teeth. we also have started a 14 fr NG tube. the son reported she had missed dialysis yesterday. the son is unaware of when this started this morning. the son reported that her previous tremor she had was possibly a seizure, but it was never diagnosed.". Coronavirus screen: Proceed with normal triage. Ebola Screen: Patient negative for fever greater than or equal to 101.5 degrees Fahrenheit, and additional compatible Ebola Virus Disease symptoms. Initial Sepsis Screen: Does the patient meet any 2 criteria? No. Patient's initial sepsis screen is negative. Does the patient have a suspected source of infection? No. Patient's initial sepsis screen is negative. Risk Assessment: Do you want to hurt yourself or someone else? Patient reports no desire to harm self or others. Onset of symptoms was March 18, 2020. 06:17 Method Of Arrival: EMS: [facility] jd3 06:17 Acuity: JANAE 1 jd3 Triage Assessment: 20:39 General: Appears comfortable. General: Behavior is calm, unresponsive. Respiratory: rv Reports Onset: The symptoms/episode began/occurred. Historical: - Allergies: 06:28 Codeine; jd3 06:28 Demerol; jd3 06:28 Morphine; jd3 06:28 TETRACYCLINES; jd3 - Home Meds: 06:28 ascorbic acid (vitamin C) 500 mg tab [Active]; amlodipine 10 mg tab 1 tab once daily jd3 [Active]; aspirin 81 mg Oral chew [Active]; atorvastatin 40 mg Oral tab [Active]; clonidine HCl 0.2 mg Oral tab [Active]; cyclobenzaprine 5 mg Oral tab [Active]; Humulin 70/30 Sub-Q twice a day [Active]; hydralazine 50 mg Oral tab 1 tab 2 times per day [Active]; famotidine 20 mg Oral tab [Active]; carvedilol 25 mg Oral tab 1 tab 2 times per day [Active]; hydralazine 50 mg Oral tab [Active]; lactulose 10 gram/15 mL (15 mL) Oral soln [Active]; lisinopril 40 mg Oral tab [Active]; isosorbide mononitrate 60 mg Oral Tb24 [Active]; nifedipine 90 mg Oral TbER [Active]; lidocaine patch 4% [Active]; tramadol 50 mg Oral tab [Active]; Zinc Sulfate Oral [Active]; tramadol-acetaminophen 37.5-325 mg Oral tab [Active]; Coreg 25 mg Oral tab [Active]; Zofran (as hydrochloride) 4 mg Oral tab [Active]; furosemide 20 mg Oral tab 1 tab once daily [Active]; - PMHx: 06:28 Hypertension; Renal Disease; Diabetes - IDDM; DVT; dialysis T,TH,S; chronic anemia; CHF;jd3 - PSHx: 06:28 dialysis ports; jd3 - Immunization history:: Adult Immunizations unknown. - Social history:: Smoking status: unknown. Screenin:45 Abuse screen: Unknown. No signs noted. Nutritional screening: Pt is slender. . aa5 Tuberculosis screening: Unknown . Fall Risk IV access (20 points). Mental Status- Overestimates/Forgets Limitations (15 pts.). Total Martin Fall Scale indicates Low Risk Score (25-44 pts). Fall prevention measures have been instituted. Side Rails Up X 2 Placed close to Nursing Station. Assessment: 06:35 General: Behavior is unresponsive. Pain: Unable to use pain scale. Patient is jd3 unresponsive. Neuro: Level of Consciousness is unresponsive, Oriented to none. Cardiovascular: Heart tones present Capillary refill < 3 seconds Patient's skin is warm and dry. Rhythm is irregular. Respiratory: Airway via oral intubation Respiratory effort is even, Respiratory pattern is symmetrical, Breath sounds are coarse Breath sounds with crackles bilaterally. GI: NGT in place. : No signs and/or symptoms were reported regarding the genitourinary system. Derm: Skin is intact, Skin is dry, Skin is normal, Skin temperature is warm. 06:56 Reassessment: No changes from previously documented assessment. Patient and/or family jd3 updated on plan of care and expected duration. Pain level reassessed. pt in bed with ET tube in place, A\\T\\O X 0. 07:15 General: Behavior is unresponsive. Pt appears to lean to left side. Pt not moving. . aa5 Pain: Unable to use pain scale. Patient is unresponsive. Neuro: Level of Consciousness is unresponsive, Oriented to none. Cardiovascular: Heart tones S1 S2 present Rhythm is irregular Dialysis shunt: in the left arm, with palpable thrill, with auscultated bruit, with no erythema, with no edema, no bleeding noted Dialysis catheter noted to right upper chest. . Respiratory: Airway via oral intubation Respiratory effort is assisted Breath sounds are coarse bilaterally. GI: Abdomen is flat, NGT in place, to suction. : Brief noted. EENT: No deficits noted. Derm: Skin is dry, Skin is normal, Skin temperature is warm. 07:20 Reassessment: Pt orally and deep suctioned. Pt noted to be biting on ET tube and aa5 gagging noted. ET tube placement at this time 25 cm at the teeth. NG tube noted to low intermittent suction with small amount of bile noted in suction tubing. . 07:56 Reassessment: Pt cleaned of urinary incontinence, clean brief applied. Warm blankets aa5 placed on patient for warming measures. . 07:58 Reassessment: RT at bedside placing bite block. . aa5 08:09 Reassessment: RT pulled back ET tube 1 cm per MD. ET tube placement at this time is 24 aa5 cm at the teeth. 09:00 Reassessment: Pt noted to be moving right arm. No movement noted to other extremities. aa5 Pt intubated, assisted ventilations. . 09:00 Reassessment: Dr. Malave (Hospitalist) at bedside. . aa5 10:35 Reassessment: Increased movement to right arm noted. Dr. Malave contacted and Vent aa5 protocol sedation was ordered. Pt withdraws right arm to pain. No eye movement noted, no movement noted to other extremities. Pt repositioned in bed. Orally suctioned and deep suctioned ET tube. . 11:30 Reassessment: Pt intubated and sedated. Appears comfortable. Repositioned in bed. aa5 Assisted ventilations via ET tube. . Vital Signs: 06:25 BP 170 / 80; Pulse 70; Resp 17 A; Temp 98.7(R); Pulse Ox 100% on ETT vent; Weight 45.36 jd3 kg (R); Height 4 ft. 11 in. (149.86 cm) (R); Pain 0/10; 07:05 BP 155 / 93; Pulse 63; Resp 15 S; Pulse Ox 100% on R/A; jd3 07:56 Temp 96.6(O); aa5 08:00 BP 168 / 99; Pulse 63; Resp 16 A; Pulse Ox 100% on ETT vent; aa5 08:15 aa5 08:30 BP 162 / 97; Pulse 65; Resp 16 A; Pulse Ox 100% on ETT vent; aa5 09:00 BP 187 / 89; Pulse 66; Resp 16 A; Pulse Ox 100% on ETT vent; aa5 09:30 BP 190 / 88; Pulse 68; Resp 16 A; Pulse Ox 100% on ETT vent; aa5 10:00 BP 203 / 120; Pulse 74; Resp 18 A; Pulse Ox 100% on ETT vent; aa5 10:20 BP 204 / 91; Pulse 72; Resp 16 A; Temp 97.7(R); Pulse Ox 100% on ETT vent; aa5 10:40 BP 192 / 87; Pulse 79; Resp 16 A; Pulse Ox 100% on ETT vent; aa5 10:55 BP 184 / 75; Pulse 72; Resp 16 A; Pulse Ox 100% on ETT vent; aa5 11:10 BP 171 / 100; Pulse 74; Resp 16 A; Pulse Ox 100% on ETT vent; aa5 11:30 BP 178 / 99; Pulse 78; Resp 16 A; Pulse Ox 100% on ETT vent; aa5 11:45 BP 173 / 99; Pulse 78; Resp 16 A; Temp 97.6(R); Pulse Ox 100% on ETT vent; aa5 12:00 BP 174 / 72; Pulse 77; Resp 16 A; Pulse Ox 100% on ETT vent; aa5 06:25 Body Mass Index 20.20 (45.36 kg, 149.86 cm) jd3 08:15 Vent Settings: AC 16, TV 400, 30% O2 aa5 10:00 Dr. Garcia notified of elevated BP aa5 ED Course: 06:06 Patient arrived in ED. cl3 06:17 Cliff Almaguer RN is Primary Nurse. jd3 06:18 Harsha Chamberlain MD is Attending Physician. 7 06:24 Triage completed. jd3 06:25 Arm band placed on. EKG completed in triage. Results shown to MD. jd3 06:54 CT Head Brain wo Cont In Process Unspecified. EDMS 07:00 Report received from JONI Coronado. aa5 07:10 XRAY Chest (1 view) In Process Unspecified. EDMS 07:10 Placed in gown. Bed in low position. Side rails up X2. aa5 07:26 Attending Physician role handed off by Harsha Chamberlain MD gadiel 07:26 Ricky Garcia MD is Attending Physician. gadiel 07:33 Lab(s) recollected, by fl, sent to lab. Inserted saline lock: 20 gauge in right upper aa5 arm, using aseptic technique. 07:56 Straight cath inserted, using sterile technique, 16 Fr. Specimen obtained. Patient aa5 tolerated well. 08:02 Padma Wall, JONI is Primary Nurse. aa5 08:21 Luis Miguel Malave DO is Hospitalizing Provider. gadiel 08:50 Chest Single View XRAY In Process Unspecified. EDMS 09:40 strep swab, flu swab, and COVID-19 swab collected and sent to lab. aa5 12:00 Patient admitted, IV remains in place. aa5 12:30 Inserted saline lock: 22 gauge in right hand, using aseptic technique. aa5 12:30 IV discontinued, intact, bleeding controlled, Pressure dressing applied, Mild swelling aa5 noted to 20 G to R FA. 20:25 No provider procedures requiring assistance completed. mg2 Administered Medications: 09:55 Drug: Cefepime 1 grams Route: IVPB; Rate: 200 ml/hr; Infused Over: 30 mins; Site: right aa5 upper arm; 10:55 Follow up: Response: No adverse reaction; IV Status: Completed infusion aa5 10:05 Drug: hydrALAZINE 5 mg Route: IV; Rate: calculated rate; Site: right forearm; aa5 10:15 Follow up: Response: No adverse reaction; Blood pressure is lowered aa5 10:23 Drug: hydrALAZINE 5 mg Route: IV; Rate: calculated rate; Site: right forearm; aa5 10:45 Follow up: Response: No adverse reaction; Blood pressure is lowered aa5 Outcome: 08:22 Decision to Hospitalize by Provider. gadiel 12:00 Admitted to ER Hold. Please see [facility] for further documentation. aa5 12:00 Condition: stable aa5 12:00 Instructed on N/A Pt is intubated and sedated. 20:27 Transferred by ground EMS to [facility] [facility] [place]. mg2 20:27 Condition: stable 20:27 Instructed on the need for transfer, Demonstrated understanding of instructions, informed about the patient. 20:40 Patient left the ED. rv Signatures: Dispatcher [employer] EDRicky Higgins MD MD cha Calderon, Audri, RN RN aa5 Davies, Jonathon, RN RN jJonathan Mercado RN RN mg2 Florentino Serrano RN RN rv Lewis, Charde cl3 Harsha Chamberlain MD MD [email or web address] Corrections: (The following items were deleted from the chart) 06:25 06:17 Chief complaint: EMS states: "we were initially called out for a pt having jd3 trimmers and not waking up. on our arrival pt was still had a nabila and was unresponsive. we gave 4 of Ativan, Etomidate 20, and Rocuronium 40 and intubated. pulses/heart rate was initially tachy, but slowed down after intubation. stable vitals otherwise. blood sugar was 144. the ET tube is a 6.5 and it is measured at 25 at the teeth. we also have started a 14 fr NG tube. the son reported she had missed dialysis yesterday." jd3 06:56 06:17 Chief complaint: EMS states: "we were initially called out for a pt having jd3 trimmers and not waking up. on our arrival pt was still had a nabila and was unresponsive. we gave 4 of Ativan, Etomidate 20, and Rocuronium 40 and intubated. pulses/heart rate was initially tachy, but slowed down after intubation. stable vitals otherwise. blood sugar was 144. the ET tube is a 6.5 and it is measured at 25 at the teeth. we also have started a 14 fr NG tube. the son reported she had missed dialysis yesterday. the son is unaware of when this started this morning." jd3 07:05 06:57 Pulse 63bpm; Resp 15bpm; Spontaneous; Pulse Ox 100% RA; jfelicitas jd3 07:33 06:17 Chief complaint: EMS states: "we were initially called out for a pt having jd3 trimmers and not waking up. on our arrival pt was still had a nabila and was unresponsive. we gave 4 of Ativan, Etomidate 20, and Rocuronium 40 and intubated. pulses/heart rate was initially tachy, but slowed down after intubation. stable vitals otherwise. blood sugar was 144. the ET tube is a 6.5 and it is measured at 25 at the teeth. we also have started a 14 fr NG tube. the son reported she had missed dialysis yesterday. the son is unaware of when this started this morning. the son reported that her previous nabila she had was possibly a seizure, but it was never diagnosed." jd3 08:13 07:20 Reassessment: Pt orally and deep suctioned. Pt noted to be biting on ET tube and aa5 gagging noted. . aa5 19:37 07:15 Cardiovascular: Heart tones S1 S2 present Rhythm is irregular Dialysis shunt: in aa5 the left arm, with palpable thrill, with auscultated bruit, with no erythema, with no edema, no bleeding noted aa5
[2020-03-18 08:24] LABS: Bilirubin Direct 0.2 mg/dL (0-0.2); Bilirubin Total 0.4 mg/dL (0.2-1.0); Potassium 4.4 mmol/L (3.5-5.1); Protein, Total 6.9 g/dL (6.4-8.2); Troponin (Emerg Dept Use Only) 0.02 ng/mL (0.0-0.045)
--- NOTE | 2020-03-18 08:33 | RAD REPORT ---
EXAM DESCRIPTION: RAD - Chest Single View - 03/18/2020 7:10 am CLINICAL HISTORY: AMS Chest pain. COMPARISON: Chest Single View dated 01/30/2020; Chest Single View dated 01/16/2019; Chest Single View dated 01/08/2019; Chest Single View dated 01/05/2019 FINDINGS: Portable technique limits examination quality. Patient rotation limits assessment. Tip of the ET tube appears at the level the marina. Enteric tube descends into the upper abdomen. Venous catheter tip is in SVC region. The lungs are grossly clear. T he heart is mildly prominent.
[2020-03-18 08:54] LABS: Blood Morphology Comment NOTED (NOT SEEN); Macrocytosis 1+; Platelet Estimate ADEQ
--- NOTE | 2020-03-18 08:57 | RAD REPORT ---
EXAM DESCRIPTION: RAD - Chest Single View - 03/18/2020 8:49 am CLINICAL HISTORY: ett readjust Chest pain. COMPARISON: Chest Single View dated 03/18/2020; Chest Single View dated 01/30/2020; Chest Single View dated 01/16/2019; Chest Single View dated 01/08/2019 FINDINGS: Portable technique limits examination quality. Tip of the ET tube appears above the marina although the exact position of the tip appears obscured b y right-sided venous catheter. Enteric tube coils in the stomach. The lungs are grossly clear the hea rt is upper limit normal in size.
--- NOTE | 2020-03-18 09:48 | P.HP ---
Certification for Inpatient With expected LOS: >2 Midnights Practitioner: I am a practitioner with admitting privileges, knowledge of patient current condition, hospital course, and medical plan of care. Services: Services provided to patient in accordance with Admission requirements found in Title 42 Section 412.3 of the Code of Federal Regulations Patient History Date of Service: 03/18/20 Primary Care Provider: Nick Magana nephrology, PCP unknown Reason for admission: AMS/ESRD/Syncope/Acute respiratory failure History of Present Illness: 69-year-old female with past medical history of hypertension, diabetes mellitus controlled with diet-no medication, end-stage renal disease on Tuesday, , Tuesday dialysis and chronic anemia who was brought to the emergency room by EMS intubated and unresponsive. Spoke to who told me that he spoke to patient at 2:00 a.m. this morning and when he awoke at 4:00 a.m. he was unable to awaken his . States that he could not get to answer him back or respond. called EMS and patient was intubated and brought to the ED. states that patient had dialysis on Tuesday and had a very brief syncopal episode. EMS was called, but by the time EMS arrived 2 dialysis center patient had become alert and oriented x3 and had no deficits. states that patient has had a syncopal episode in the past, January 16, 2019 and was hospitalized for several days in a hospital in [place]. States that patient has not had a CVA in the past. 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 states patient was supposed to be evaluated tomorrow for surgery on the left hand. Has a states patient was n egative for Covid-19 2 months ago and has been very compliant with wearing mask and washing hands. Patient's volumetric weigher is Nick Ott MD, PCP unknown. She is full code. In the ED patient is unresponsive. She is intubated and on a ventilator. CT scan of the head shows no acute pathology, no intracranial bleed. EKG unremarkable. Lab work shows an elevated creatinine of 4.1 the patient is a dialysis patient and will be missing her dialysis session today. Normal white cell count, normal procalcitonin and no indication of infection. Vitals are stable. Blood glasses show pH is 7.2, a pCO2 of 49 and a PO2 of 173. ProBNP is elevated at 9 K. patient will be admitted to the ICU for further evaluation Allergies codeine Allergy (Verified 01/03/19 22:19) Nausea/Vomiting/itching morphine Allergy (Verified 01/03/19 22:19) AMS TETRACYCLINES Allergy (Uncoded 11/24/18 10:40) Itching/Hives/Rash Home medications list reviewed: No Home Medications: Furosemide 80 mg PO BID PRN 01/03/19 Hydralazine [Apresoline*] 75 mg PO TID 01/03/19 Doxazosin [Cardura*] 2 mg PO BEDTIME #30 tab 01/10/19 Metoprolol Tartrate [Lopressor*] 25 mg PO BID #30 tab 01/10/19 ramipriL [Altace*] 2.5 mg PO BEDTIME #30 cap 01/10/19 - Past Medical/Surgical History Diabetic: Yes -: ERSD -: diabetes -: HTN -: DVT -: Chronic anemia -: appendectomy Psychosocial/ Personal History: Lives at home with , Doyle Lu - Family History Family History: Reviewed- Non-Contributory - Social History Smoking Status: Never smoker Alcohol use: No CD- Drugs: No Caffeine use: Yes Place of Residence: Home Review of Systems is unable to be obtained Physical Examination - Physical Exam General: Unresponsive, Other (On ventilator) HEENT: Atraumatic, Normocephalic, PERRLA Neck: Supple, Other (Trachea midline) Respiratory: Normal air movement Cardiovascular: No edema, Regular rate/rhythm Capillary refill: Brisk Gastrointestinal: Normal bowel sounds, Soft and benign, Non-distended Musculoskeletal: No swelling, Contractures (Left hand), Other (Left bicep AV dialysis graft) Integumentary: No rashes, No breakdown, No significant lesion, No tenderness/swelling Neurological: Other (Unresponsive) - Studies Laboratory Data (last 24 hrs) 03/18/20 07:34: PT 11.9, INR 1.01 03/18/20 07:34: WBC 7.7, Hgb 12.1, Hct 36.1, Plt Count 213 03/18/20 07:34: Sodium 144, Potassium 4.4, BUN 46 H, Creatinine 4.81 H, Glucose 148 H, Magnesium 2.0, Total Bilirubin 0.4, AST 20, ALT 18, Alkaline Phosphatase 64 Assessment and Plan - Plan Impression: Altered mental status of unclear etiology currently responsive and on ventilator Syncope Acute respiratory failure currently on ventilator End-stage renal disease on dialysis Tuesday, , Tuesday Essential hypertension Type 2 diabetes mellitus controlled with diet. On no medication Anemia of chronic disease Plan: Altered mental status of unclear etiology currently responsive and on ventilator: Patient was intubated at home by EMS. Currently on ventilator. Spoke with who states that patient was found unresponsive at 4:00 a.m.. Patient has a history of syncopal episode last Tuesday during dialysis and was only able to complete 2 hr of the 3hrs of dialysis that she normally does. Altered mental status is of unclear etiology. CT of the head is negative for acute pathology. Will likely order MRI of the brain to rule out CVA and neurology consult. Syncope: Etiology unclear. Patient had syncopal episode on Tuesday during dialysis but recovered quickly. Despite EMS being called patient recovered before EMS arrived and was not taken to the ED. She was at her baseline when she left the dialysis center. Acute respiratory failure currently on ventilator: Patient will be screened for Covid-19. Spoke to says patient was tested 2 months ago and was negative at that time. states patient has not been symptomatic, no fever, and no respiratory distress. End-stage renal disease on dialysis Tuesday, , Tuesday: Creatinine of 4.1 on admission. Patient will miss her dialysis session for today. Patient will likely require dialysis on this admission. Will consult Nephrology. Essential hypertension: Blood pressure stable. Will monitor blood pressure and adjust medications accordingly. Type 2 diabetes mellitus controlled with diet. On no medication: Will monitor blood glucose, will place patient on sliding scale insulin if necessary. Per -Patient controls her blood glucose with diet and currently does not take medication. Anemia of chronic disease: Chronic. Will monitor daily labs. Discharge Plan: Home Plan to discharge in: Greater than 2 days - Advance Directives Does patient have a Living Will: No Does patient have a Durable POA for Healthcare: No - Code Status/Comfort Care Code Status Assessed: Yes Time Spent Managing Pts Care (In Minutes): 60
[2020-03-18] MEDS ORDERED: HYDRALAZINE HCL 20 MG/ML VIAL IV PRN (10:09)
[2020-03-18] MEDS ORDERED: ACETAMINOPHEN 500 MG TAB PO PRN (10:09)
[2020-03-18] MEDS ORDERED: NA CHLORIDE 0.9% 1,000 ML IV SCH (10:09)
[2020-03-18] MEDS ORDERED: ONDANSETRON 4 MG/2 ML VIAL IV PRN (10:09)
[2020-03-18] MEDS ORDERED: ACETAMINOPHEN 650MG/RECT SUPP PR PRN (10:09)
[2020-03-18] MEDS ORDERED: HYDRALAZINE HCL 20 MG/ML VIAL ONE ×2 (10:12→13:02)
[2020-03-18] MEDS ORDERED: LORazepam 2 MG/ML VIAL IV PRN (10:34)
[2020-03-18] MEDS ORDERED: propofoL 1,000 MG/100 ML VIAL IV PRN (10:34)
[2020-03-18] MEDS ORDERED: FENTANYL CITR 100 MCG/2 ML IV PRN (10:34)
[2020-03-18] MEDS ORDERED: HALOPERIDOL LACT 5 MG/ML INJ IV PRN (10:34)
[2020-03-18] MEDS ORDERED: MIDAZOLAM HCL 2 MG/2 ML INJ IV PRN (10:34)
[2020-03-18] MEDS ORDERED: NA CHLORIDE 0.9% 1,000 ML ONE (10:54)
[2020-03-18] MEDS ORDERED: VANCOMYCIN 500 MG in NA CHLORIDE 0.9% 100 ML IVPB SCH (11:00)
[2020-03-18] MEDS ORDERED: CEFEPIME 0.5 GM in NA CHLORIDE 0.9% 50 ML IV SCH (11:00)
[2020-03-18] MEDS ORDERED: VANCOMYCIN/NS 1 gm 1 GM/250 ML BAG IV ONE (11:00)
[2020-03-18] MEDS: INSULIN -REGULAR HUMAN 50 UNIT/0.5 ML ML SQ SCH ×2 (11:30→16:30)
--- NOTE | 2020-03-18 11:44 | RAD REPORT ---
EXAM DESCRIPTION: - CP - 03/18/2020 11:24 am CLINICAL HISTORY: syncope, AMS Headache, drowsiness COMPARISON: Chest Single View dated 03/18/2020 TECHNIQUE: Real-time sonographic evaluation of both carotid systems was performed. Doppler interroga tion was performed with waveform tracing bilaterally. FINDINGS: Patient's ventilatory status significantly limited quality of the study. Normal high resis tance waveforms are noted in both external carotid arteries. The common carotid arteries and internal carotid arteries show normal low resistance waveforms. Moderate hard plaquing is seen involving both carotid bulbs. Peak systolic and end diastolic velocity values and the ICA/CCA ratios are in the non-hemodynamically significant range. Visually, there is l uminal narrowing of the right carotid bulb estimated at 70-80% based on NASCET criteria. Antegrade flow seen in both vertebral arteries. IMPRESSION: Moderate hard plaquing is seen in both carotid bulbs. Right carotid bulb appears visually narrowed compatible with 70-80% stenosis. No hemodynamically sign ificant changes seen.
[2020-03-18 14:41] VITALS: BMI 18.3
[2020-03-18 15:59] LABS: CKMB Creatine Kinase MB 1.4 ng/mL (0.3-3.6); Troponin I 0.03 ng/mL (0.0-0.045)
[2020-03-18 19:22] VITALS: TEMP 97.5
[2020-03-18] MEDS ORDERED: HEPARIN 5000 UNIT/ML 1 ML VIAL ONE (19:29)
[2020-03-18 19:56] VITALS: BP 184/74
[2020-03-18] MEDS ORDERED: propofoL 1,000 MG/100 ML VIAL IV ONE (20:26)
[2020-03-18] MEDS ORDERED: HEPARIN 5000 UNIT/ML 1 ML VIAL SQ SCH (21:00)
[2020-03-18] MEDS ORDERED: FAMOTIDINE 20 MG/2 ML VIAL IV SCH (21:00)
[2020-03-18] MEDS ORDERED: CEFEPIME 1 GM/VIAL IV SCH (21:00)
[2020-03-18 21:09] VITALS: O2SAT 100
--- NOTE | 2020-03-19 07:48 | EKG ---
Test Date: 2020-03-18 Test Time: 06:15:18 [employer]: MATHEW MEASUREMENT RESULTS: Intervals: Rate: 69 NC: 176 QRSD: 76 QT: 410 QTc: 439 [place]: P: 85 NC: 176 QRS: -31 T: 31 INTERPRETIVE STATEMENTS: Sinus rhythm with premature atrial complexes Left axis deviation Abnormal ECG Compared to ECG 01/30/2020 20:11:39 Atrial premature complex(es) now present Left-axis deviation now present Left ventricular hypertrophy no longer present Electronically Signed On 03-19-20 07:44:52 CDT by Jonathan Choudhury
[2020-03-19] MEDS ORDERED: VANCOMYCIN 1 GM in NA CHLORIDE 0.9% 500 ML IVPB SCH (09:00)
[2020-03-19] MEDS ORDERED: FOLIC ACID 1 MG in NA CHLORIDE 0.9% 50 ML IV SCH (09:00)
[2020-03-19] MEDS ORDERED: FAMOTIDINE 20 MG/2 ML VIAL IV SCH (09:00)
[2020-03-19] MEDS ORDERED: FOLIC ACID 5 MG/ML VIAL IVP SCH (09:00)
[2020-03-19] MEDS ORDERED: THIAMINE 200 MG/2 ML INJ IVP SCH (09:00)
--- NOTE | 2020-03-20 20:24 | P.CNS ---
Date of Consult: 03/18/20 Reason for Consult: ESRD Requesting Physician: Luis Miguel aMlave Primary Care Provider: Nick Magana nephrology, PCP unknown Chief Complaint: AMS/ESRD/Syncope/Acute respiratory failure History of Present Illness: 69-year-old female with past medical history of hypertension, diabetes mellitus controlled with diet-no medication, end-stage renal disease on Tuesday, , Tuesday dialysis and chronic anemia who was brought to the emergency room by EMS intubated and unresponsive. Spoke to who told me that he spoke to patient at 2:00 a.m. this morning and when he awoke at 4:00 a.m. he was unable to awaken his . States that he could not get to answer him back or respond. called EMS and patient was intubated and brought to the ED. states that patient had dialysis on Tuesday and had a very brief syncopal episode. EMS was called, but by the time EMS arrived 2 dialysis center patient had become alert and oriented x3 and had no deficits. states that patient has had a syncopal episode in the past, January 16, 2019 and was hospitalized for several days in a hospital in [place]. States that patient has not had a CVA in the past. 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 states patient was supposed to be evaluated tomorrow for surgery on the left hand. Has a states patient was negative for Covid-19 2 months ago and has been very compliant with wearing mask and washing hands. Patient's redrawer is Nick Ott MD, PCP unknown. She is full code. Allergies codeine Allergy (Verified 01/03/19 22:19) Nausea/Vomiting/itching morphine Allergy (Verified 01/03/19 22:19) AMS TETRACYCLINES Allergy (Uncoded 11/24/18 10:40) Itching/Hives/Rash Home medications list reviewed: Yes Home Medications: Furosemide 80 mg PO BID PRN 01/03/19 Hydralazine [Apresoline*] 75 mg PO TID 01/03/19 Doxazosin [Cardura*] 2 mg PO BEDTIME #30 tab 01/10/19 Metoprolol Tartrate [Lopressor*] 25 mg PO BID #30 tab 01/10/19 ramipriL [Altace*] 2.5 mg PO BEDTIME #30 cap 01/10/19 - Past Medical/Surgical History Diabetic: Yes -: ERSD -: diabetes -: HTN -: DVT -: Chronic anemia -: Dialysis T, TH, S -: CHF -: appendectomy -: Dialysis catheter to right upper chest -: Dialysis shunt to left arm Psychosocial/ Personal History: Lives at home with , Doyle Lu - Social History Smoking Status: Unknown if ever smoked Alcohol use: No CD- Drugs: No Caffeine use: Yes Place of Residence: Home Review of Systems is unable to be obtained General: Weakness, Malaise Physical Examination Temp Pulse Resp BP Pulse Ox 97.5 F 82 17 184/74 H 100 03/18/20 19:00 03/18/20 19:00 03/18/20 19:00 03/18/20 19:00 03/18/20 19:00 General: Moderate distress, Unresponsive HEENT: Atraumatic Neck: JVD distended Respiratory: Clear to auscultation bilaterally Cardiovascular: No edema, Regular rate/rhythm Gastrointestinal: Hypoactive, Non-distended Musculoskeletal: No clubbing, Contractures Integumentary: No rashes, No cyanosis Neurological: Abnormal strength Blood work reviewed in the chart. Imagings Data: EXAM DESCRIPTION: - - 03/18/2020 11:24 am CLINICAL HISTORY: syncope, AMS Headache, drowsiness COMPARISON: Chest Single View dated 03/18/2020 TECHNIQUE: Real-time sonographic evaluation of both carotid systems was performed. Doppler interrogation was performed with waveform tracing bilaterally. FINDINGS: Patient's ventilatory status significantly limited quality of the study. Normal high resistance waveforms are noted in both external carotid arteries. The common carotid arteries and internal carotid arteries show normal low resistance waveforms. Moderate hard plaquing is seen involving both carotid bulbs. Peak systolic and end diastolic velocity values and the ICA/CCA ratios are in the non- hemodynamically significant range. Visually, there is luminal narrowing of the right carotid bulb estimated at 70-80% based on NASCET criteria. Antegrade flow seen in both vertebral arteries. IMPRESSION: Moderate hard plaquing is seen in both carotid bulbs. Right carotid bulb appears visually narrowed compatible with 70-80% stenosis. No hemodynamically significant changes seen. EXAM DESCRIPTION: [facility] - Chest Single View - 03/18/2020 8:49 am CLINICAL HISTORY: ett readjust Chest pain. COMPARISON: Chest Single View dated 03/18/2020; Chest Single View dated 01/30/2020; Chest Single View dated 01/16/2019; Chest Single View dated 01/08/2019 FINDINGS: Portable technique limits examination quality. Tip of the ET tube appears above the marina although the exact position of the tip appears obscured by right-sided venous catheter. Enteric tube coils in the stomach. The lungs are grossly clear the heart is upper limit normal in size. Conclusions/Impression: A/ Syncope Toxic Metabolic Encephalopathy Acute Respiratory Failure sp intubation ESRD on HD DM II with CKD HTN with CKD/ CHF. Diastolic CHF, chronic. Anemia in CKD. OSWALDO/ Secondary HyperPTH P/ Continue current POC and Medications. No acute HD at this time. Intubated and sedated. Ventilatory support as ordered. Continue abx. Plan for transfer for necessary higher level of care. No NSAIDs. AM labs. Daily weight. Thank you kindly for the consultation. Case reviewed with Dr. Garcia and Dr. Malave. Greater than 30min patient care. Critical Care: Yes
== END 2020-03-18 20:38 | disposition short-term general hospital (02) | DRG 208 ==
LOC: ER 06:05 → ERHOLD 09:33
PROVIDERS: ADMIT Family Medicine; ATTEND Family Medicine
PROC: 5A1935Z Respiratory Ventilation, Less than 24 Consecutive Hours (ICD-10-PCS; principal; 2020-03-18)
DX: J96.00 Acute respiratory failure, unspecified whether with hypoxia or hypercapnia (principal); G92 Toxic encephalopathy; N18.6 End stage renal disease; I12.0 Hypertensive chronic kidney disease with stage 5 chronic kidney disease or end stage renal disease; I13.2 Hypertensive heart and chronic kidney disease with heart failure and with stage 5 chronic kidney disease, or end stage renal disease; I50.32 Chronic diastolic (congestive) heart failure; N25.81 Secondary hyperparathyroidism of renal origin; R55 Syncope and collapse; E11.22 Type 2 diabetes mellitus with diabetic chronic kidney disease; D63.1 Anemia in chronic kidney disease; Z99.2 Dependence on renal dialysis; Z20.828 Contact with and (suspected) exposure to other viral communicable diseases
CPT/HCPCS: 36415; 51702; 70450; 71045; 80048; 80076; 80307; 80320; 81003; 82550; 82553; 82805; 82947; 83605; 83735; 83880; 84145; 84484; 85025; 85610; 87040; 87070; 87081; 87804; 93005; 93880; 94002; 96365; 96375; 99291; 99292; J0360; J0692; J1644; J2704; J3370; J7030; U0002